=== PATIENT | female | born 1955 | race American Indian/Alaskan Native ===

== ENCOUNTER 2016-08-22 07:55 | Inpatient (IN) | payer MEDICARE, OTHER ==
[2016-08-22 07:56] VITALS: BMI 32.6
--- NOTE | 2016-08-22 09:31 | ED PDOC ---
Arrival/HPI - General Chief Complaint: Pain, Chronic Time Seen by Provider: 08/22/16 09:16 Historian: Patient - History of Present Illness Narrative History of Present Illness (Text): 08/22/16 09:25 61yo female with PMHx of hyperlipdemia, hypertension, TIA, protein C deficiency and Coumadin induced necrosis present to ED with complaint of worsening left breast and 4th digits pain secondary to the necrosis. She had a debridment of the necrosis in July. States the right breast is healed and close, but left breast remain open and painful. Recently noticing purulent discharge from the breast. Also reports worsening pain to the 4th digits. States the necrosis improved from the last debridement and now localized to her 4th digit distal phalanx. States she spoke with Dr. Alcala and was told to go to the ED if pain worsens. She denies fever, chills, nausea, vomiting, SOB, chest pain, bleeding, any other complaint. Past Medical History - Provider Review Nursing Documentation Reviewed: Yes - Infectious Disease Hx of Infectious Diseases: None - Tetanus Immunization Tetanus Immunization: Unknown - Cardiac Hx Atrial Fibrillation: Yes Hx Hypertension: Yes - Pulmonary Hx Respiratory Disorders: Yes Hx Asthma: Yes - Neurological Hx Paralysis: No - HEENT Hx HEENT Disorder: No - Renal Hx Renal Disorder: No - Endocrine/Metabolic Hx Endocrine Disorders: No - Hematological/Oncological Hx Blood Transfusions: Yes Hx Blood Transfusion Reaction: No - Integumentary Hx Dermatological Disorder: No - Musculoskeletal/Rheumatological Hx Musculoskeletal Disorders: Yes (RHABDOMYOLYSIS) - Gastrointestinal Hx Gastrointestinal Disorders: No - Genitourinary/Gynecological Hx Genitourinary Disorders: Yes Hx Urinary Tract Infection: Yes - Psychiatric Hx Emotional Abuse: No Hx Physical Abuse: No Hx Substance Use: No - Past Surgical History Past Surgical History: Non-Contributing - Surgical History Hx Gastric Bypass Surgery: Yes Hx Hysterectomy: Yes Other/Comment: tonsilectomy - Anesthesia Hx Anesthesia Reactions: No Hx Malignant Hyperthermia: No - Suicidal Assessment Feels Threatened In Home Enviroment: No Family/Social History - Physician Review Nursing Documentation Reviewed: Yes Family/Social History: Unknown Family HX Smoking Status: Never Smoked Hx Alcohol Use: No Hx Substance Use: No Hx Substance Use Treatment: No Allergies/Home Meds Allergies/Adverse Reactions: Allergies Penicillins Allergy (Verified 08/22/16 08:04) ANGIOEDEMA/SHORTNESS OF BREATH ANGIOEDEMA SHORTNESS OF BREATH Home Medications: Home Meds Medication Instructions Recorded Confirmed Gabapentin [Neurontin] 300 mg PO TID 12/05/13 08/22/16 Pantoprazole [Protonix EC Tab] 40 mg PO BID 12/05/13 08/22/16 Simvastatin 20 mg PO HS 11/07/15 08/22/16 Valsartan [Diovan] 80 mg PO QPM 11/07/15 08/22/16 Metoprolol Tartrate 25 mg PO BID 12/10/15 08/22/16 Ibuprofen [Motrin Tab] 1 tab PO TID 03/27/16 08/22/16 Fluticasone Nasal [Flonase] 2 spr NS DAILY 03/28/16 08/22/16 Furosemide [Lasix] 40 mg PO BID 03/28/16 08/22/16 Promethazine DM [Phenergan DM 1 tsp PO QID 03/28/16 08/22/16 Syrup] Review of Systems - Physician Review All systems were reviewed & negative as marked: Yes - Review of Systems Constitutional: Normal Eyes: Normal ENT: Normal Respiratory: Normal Cardiovascular: Normal Gastrointestinal: Normal Genitourinary Female: Normal Musculoskeletal: Other (B/L 4th finger pain) Skin: Other (Discharge from left breast wound with pain) Neurological: Normal Endocrine: Normal Hemo/Lymphatic: Normal Psychiatric: Normal Physical Exam Vital Signs Reviewed: Yes Vital Signs Temp Pulse Resp BP Pulse Ox 08/22/16 08:09 99.3 F 104 H 16 102/58 L 100 Temperature: Afebrile Blood Pressure: Normal Pulse: Regular Respiratory Rate: Normal Appearance: Positive for: Well-Appearing, Non-Toxic, Comfortable Pain Distress: None Mental Status: Positive for: Alert and Oriented X 3 - Systems Exam Head: Present: Atraumatic, Normocephalic Pupils: Present: PERRL Extroacular Muscles: Present: EOMI Conjunctiva: Present: Normal Mouth: Present: Moist Mucous Membranes Neck: Present: Normal Range of Motion Respiratory/Chest: Present: Clear to Auscultation, Good Air Exchange. No: Respiratory Distress, Accessory Muscle Use Cardiovascular: Present: Regular Rate and Rhythm, Normal S1, S2. No: Murmurs Abdomen: Present: Normal Bowel Sounds. No: Tenderness, Distention, Peritoneal Signs Breast/Axillary: Present: Other (Clean margin wound noted on left breast. No purulent dishcarge noted. No erythema. No crepitus). No: Discoloration, Erythema Back: Present: Normal Inspection Upper Extremity: Present: Normal Inspection, Normal ROM, Swelling, Deformity (B/ L 4th distal digit necrosis noted). No: Cyanosis, Edema, Tenderness Lower Extremity: Present: Normal Inspection. No: Edema Neurological: Present: GCS=15, CN II-XII Intact, Speech Normal Skin: Present: Warm, Dry, Normal Color. No: Rashes Psychiatric: Present: Alert, Oriented x 3, Normal Insight, Normal Concentration Medical Decision Making ED Course and Treatment: 08/22/16 10:22 Case was AYAN Alcala. He requested that i called the surgical appliances salesperson to see patient. I spoke with the surgical appliances salesperson Danielle. they saw patient in ED and DC with Dr. Alcala. Per Danielle, patient will be admitted to Dr. Nguyen's service. Lab ordered and pending. Abx ordered 08/22/16 13:15 Case was AYAN Huerta and he accepted pt into his service. Plan was DW the pt and she agreed - Lab Interpretations Lab Results: 08/22/16 11:00 08/22/16 11:00 Lab Results 08/22/16 11:00: WBC 15.5 H D, RBC 3.79, Hgb 11.0 L, Hct 34.4 L, MCV 90.8, MCH 29.0, MCHC 32.0, RDW 19.1 H, Plt Count 437, MPV 10.4, Gran % 79.2 H, Lymph % ( Auto) 12.7 L, [place] % (Auto) 7.2 H, Eos % (Auto) 0.8 L, Baso % (Auto) 0.1, Gran # 12.25 H, Lymph # 2.0, [place] # 1.1 H, Eos # 0.1, Baso # 0.02, PT 11.8, INR 1.09 H, APTT 28.9, Sodium 142, Potassium 4.2, Chloride 107, Carbon Dioxide 19 L, Anion Gap 20, BUN 20, Creatinine 2.5 H, Est GFR ( Amer) 24, Est GFR (Non- Af Amer) 20, Random Glucose 86, Calcium 7.7 L, Total Bilirubin 0.9, AST 46 H, ALT 6 L, Alkaline Phosphatase 62, Total Protein 8.3, Albumin 3.7, Globulin 4.6, Albumin/Globulin Ratio 0.8 L - Medication Orders Current Medication Orders: Atorvastatin Calcium (Lipitor) 10 mg PO HS [facility] Fluticasone Propionate (Flonase) 2 actuation NS DAILY [facility] Furosemide (Lasix) 40 mg PO BID [facility] Gabapentin (Neurontin) 300 mg PO TID [facility] PRN Reason: Protocol Sodium Chloride (Sodium Chloride 0.9%) 1,000 mls @ 100 mls/hr IV .Q10H [facility] Last Admin: 08/22/16 11:18 Dose: 100 MLS/HR eMAR Start Stop Document 08/22/16 11:18 RANDAL (Rec: 08/22/16 11:18 [id number] Intravenous Solution Start Date 08/22/16 Start Time 11:18 Losartan Potassium (Cozaar) 50 mg PO QPM [facility] Magnesium Oxide (Mag-Ox) 400 mg PO TID [facility] Metoprolol Tartrate (Lopressor) 25 mg PO BID [facility] Oxycodone/Acetaminophen (Percocet 5/325 Mg Tab) 1 tab PO Q4H PRN PRN Reason: Pain, severe (8-10) Stop: 08/25/16 10:18 Pantoprazole Sodium (Protonix Ec Tab) 40 mg PO BID [facility] Potassium Chloride (K-Dur 20 Meq Er Tab) 20 meq PO BID [facility] Promethazine HCl/Dextromethorphan (Phenergan Dm Syrup) 5 ml PO QID [facility] Discontinued Medications Aztreonam (Azactam 2 Gm) 100 mls @ 100 mls/hr IVPB STAT STA PRN Reason: Protocol Stop: 08/22/16 11:24 Last Admin: 08/22/16 12:41 Dose: 100 MLS/HR eMAR Start Stop Document 08/22/16 12:41 RANDAL (Rec: 08/22/16 12:41 [id number] Intravenous Solution Start Date 08/22/16 Start Time 12:41 Metronidazole (Flagyl) 100 mls @ 100 mls/hr IVPB STAT STA PRN Reason: Protocol Stop: 08/22/16 11:25 Last Admin: 08/22/16 11:18 Dose: 100 MLS/HR eMAR Start Stop Document 08/22/16 11:18 RANDAL (Rec: 08/22/16 11:18 [id number]) Intravenous Solution Start Date 08/22/16 Start Time 11:18 Oxycodone/Acetaminophen (Percocet 5/325 Mg Tab) 1 tab PO STAT STA Stop: 08/22/16 10:26 Last Admin: 08/22/16 11:18 Dose: 1 TAB Disposition/Present on Arrival - Present on Arrival Any Indicators Present on Arrival: No History of DVT/PE: No History of Uncontrolled Diabetes: No Urinary Catheter: No History of Decub. Ulcer: No History Surgical Site Infection Following: None - Disposition Have Diagnosis and Disposition been Completed?: Yes Diagnosis: Coumarin-induced necrosis, Skin infection Disposition: HOSPITALIZED Disposition Time: 10:00 Patient Problems: Current Active Problems Problem Status Diagnosed Chest pain Acute Coumadin toxicity Acute Dyspnea Acute Protein C deficiency Acute Syncope Acute Condition: FAIR
[2016-08-22] MEDS ORDERED: Oxycodone/Acetaminophen 5/325 mg Tab PO PRN (10:17)
--- NOTE | 2016-08-22 10:20 | CP.PCM.CON ---
History of Present Illness - History of Present Illness History of Present Illness: Surgery Consult note for Dr Alcala: 61yo F with PMHx of HLD, HTN, TIA, protein C deficiency and Coumadin induced necrosis presents with worsening L breast pain and b/l 4th digit pain related to necrosis. She states that a few weeks ago she hasd a debridement of her breast secondary to the necrosis and the R breast healed well but her L breast remained open with pink purulent drainage. Pt states that she was in Dr Alcala office on which stated if her pain gets worse to come to the ED. She denies any fevers or chills. Denies any fever, chills, n/v, sob, cp, palpitations, abd pain, urinary or BM changes. PMHx: HTN, dyslipidemia, protein c deficiency on anticoagulation, chronic back pain secondary to herniated disc PSH: Gastric bypass, hysterectomy FMH: Mom had breast ca, and from CVA. at 69. Dad had unknown cancer, at age 50. Social: denies alcohol, tobacco, or illicit drug use. Retired, lives by herself. Allergy: penicillin ( rash, and swelling around the lips) Review of Systems - Review of Systems All systems: reviewed and no additional remarkable complaints except (HPI) Past Patient History - Infectious Disease Hx of Infectious Diseases: None - Tetanus Immunizations Tetanus Immunization: Unknown - Past Medical History & Family History Past Medical History?: Yes - Past Social History Smoking Status: Never Smoked - CARDIAC Hx Atrial Fibrillation: Yes Hx Hypertension: Yes - PULMONARY Hx Respiratory Disorders: Yes Hx Asthma: Yes - NEUROLOGICAL Hx Paralysis: No - HEENT Hx HEENT Problems: No - RENAL Hx Chronic Kidney Disease: No - ENDOCRINE/METABOLIC Hx Endocrine Disorders: No - HEMATOLOGICAL/ONCOLOGICAL Hx Blood Transfusions: Yes Hx Blood Transfusion Reaction: No - INTEGUMENTARY Hx Dermatological Problems: No - MUSCULOSKELETAL/RHEUMATOLOGICAL Hx Musculoskeletal Disorders: Yes (RHABDOMYOLYSIS) - GASTROINTESTINAL Hx Gastrointestinal Disorders: No - GENITOURINARY/GYNECOLOGICAL Hx Genitourinary Disorders: Yes Hx Urinary Tract Infection: Yes - PSYCHIATRIC Hx Emotional Abuse: No Hx Physical Abuse: No Hx Substance Use: No - SURGICAL HISTORY Hx Gastric Bypass Surgery: Yes Hx Hysterectomy: Yes Other/Comment: tonsilectomy - ANESTHESIA Hx Anesthesia Reactions: No Hx Malignant Hyperthermia: No Meds Allergies/Adverse Reactions: Allergies Allergy/AdvReac Type Severity Reaction Status Date / Time Penicillins Allergy ANGIOEDEMA/SHORTNESS Verified 08/22/16 08:04 OF BREATH Physical Exam - Constitutional Appears: No Acute Distress - ENT Exam ENT Exam: Mucous Membranes Moist - Respiratory Exam Respiratory Exam: Clear to Auscultation Bilateral, NORMAL BREATHING PATTERN - Cardiovascular Exam Cardiovascular Exam: REGULAR RHYTHM, +S1, +S2 - GI/Abdominal Exam GI & Abdominal Exam: Normal Bowel Sounds, Soft. absent: Tenderness - Extremities Exam Additional comments: see skin - Neurological Exam Neurological exam: Alert, Oriented x3 - Skin Additional comments: R breast: healing scars, sutures in place L breast: non healing wound with purulent discharge in lower lateral aspect of scar B/L 4th digit: necrosed distal phalanx in a sling Results - Vital Signs Recent Vital Signs: Last Vital Signs Temp 99.3 F 08/22/16 08:09 Pulse 104 H 08/22/16 08:09 Resp 16 08/22/16 08:09 BP 102/58 L 08/22/16 08:09 Pulse Ox 100 08/22/16 08:09 Assessment & Plan - Assessment and Plan (Free Text) Assessment: 61 F with extensive pmh presents with L breast non healing wound and b/l 4th digit necrosis 2/2 Coumadin . - NPO - Possible OR for debridement this afternoon - Pain control - IV fluids - Monitor Labs - Medical management per primary Further recs discuss with Dr Fredrick Wilkins IM Resident PGY-1
[2016-08-22] MEDS ORDERED: Oxycodone/Acetaminophen 5/325 mg Tab PO STA (10:25)
[2016-08-22] MEDS ORDERED: Aztreonam 2 Gm in NS 100mL 100 ML IVPB STA (10:25)
[2016-08-22] MEDS ORDERED: metroNIDAZOLE IV 500 mg/100 ml 100 ML IVPB STA (10:26)
[2016-08-22 11:15] LABS: ADD MANUAL DIFF? NO
[2016-08-22] MEDS: Sodium Chloride 0.9% 1,000 ML IV SCH ×2 (11:18→20:15)
[2016-08-22 11:21] LABS: BASO # 0.02 K/mm3 (0.0-2.0); BASO % 0.1 % (0.0-3.0); EOS # 0.1 (0.0-0.7); EOS % 0.8 % (1.5-5.0); GRAN # 12.25 (1.4-6.5); GRAN % 79.2 % (50.0-68.0); HEMATOCRIT 34.4 % (36.0-48.0); LYMPH % 12.7 % (22.0-35.0); MEAN CELL VOLUME 90.8 fL (80.0-105.0); MEAN PLATELET VOLUME 10.4 fl (7.0-11.0); MONO # 1.1 (0.1-0.6); MONO % 7.2 % (1.0-6.0); PLATELET COUNT 437 10^3/uL (120.0-450.0); RED CELL DISTRIBUTION WIDTH 19.1 % (11.5-14.5); WHITE BLOOD COUNT 15.5 10^3/ul (4.5-11.0)
[2016-08-22 11:30] LABS: INR 1.09 (0.93-1.08); PARTIAL THROMBOPLASTIN TIME 28.9 Seconds (23.7-30.8)
[2016-08-22 11:38] LABS: ALB/GLOB RATIO 0.8 (1.1-1.8); BILIRUBIN,TOTAL 0.9 mg/dL (0.2-1.3); CALCIUM 7.7 mg/dL (8.4-10.5); POTASSIUM 4.2 mmol/L (3.6-5.0); TOTAL PROTEIN 8.3 g/dL (5.8-8.3)
[2016-08-22] MEDS: Magnesium Oxide 400 mg Tab UD PO SCH ×2 (14:44→19:01)
[2016-08-22] MEDS: Promethazine DM 6.25 mg-15 mg/5 ml Syrup PO SCH ×3 (14:45→22:05)
[2016-08-22] MEDS ORDERED: Propofol 10 mg/ml Inj (20 ML) ONE (16:56)
[2016-08-22] MEDS ORDERED: Midazolam 2 MG/2 ML VIAL ONE (16:56)
[2016-08-22] MEDS ORDERED: Methylene Blue 10 mg/ml (1ml) Inj ONE (16:59)
[2016-08-22] MEDS ORDERED: Bupivacaine 0.5% Inj(30mL) ONE (16:59)
[2016-08-22] MEDS ORDERED: Ciprofloxacin 400mg/200ml D5W 200 ML IVPB ONE (17:13)
[2016-08-22] MEDS ORDERED: Phenylephrine 10 mg/ml Inj ONE (17:16)
[2016-08-22] MEDS ORDERED: Lactated Ringer's 1,000 ML IV SCH (18:00)
--- NOTE | 2016-08-22 18:05 | PCM.SURG1 ---
Surgeon's Initial Post Op Note - Surgeon's Notes Surgeon: Fredrick Semi Conductor Assembler: Cecy PGY2 Type of Anesthesia: General LMA Pre-Operative Diagnosis: Warfarin induced skin necrosis left breast Operative Findings: foul smelling grannulation tissue in left breast Post-Operative Diagnosis: same Operation Performed: debridement of left breast Specimen/Specimens Removed: L breast Estimated Blood Loss: EBL {In ML}: 25 Blood Products Given: N/A Drains Used: Gary Post-Op Condition: Good Date of Surgery/Procedure: 08/22/16 Time of Surgery/Procedure: 18:04
[2016-08-22] MEDS: HYDROmorphone 0.5 mg/0.5 ml ISec IVP PRN ×3 (18:22→19:01)
[2016-08-22] MEDS ORDERED: HYDROmorphone 0.5 mg/0.5 ml ISec ONE ×3 (18:23→19:04)
[2016-08-22] MEDS: Potassium Chloride 20 mEq ER Tab PO SCH (19:00)
[2016-08-22] MEDS: Pantoprazole 40 mg EC Tab PO SCH (19:01)
[2016-08-22] MEDS: Morphine 4 mg/ml ISec IVP PRN ×2 (20:15→23:56)
--- NOTE | 2016-08-23 00:28 | CP.PCM.PN ---
Subjective - Date & Time of Evaluation Date of Evaluation: 08/23/16 Time of Evaluation: 05:45 - Subjective Subjective: General Surgery progress note for Dr. Alcala Pt s/e at bedside this AM. Patient reports L breast pain appropriate to surgery POD#1. Denies fevers, chills, nausea, and vomiting. BRETT drain with approximately 10cc's of sero-sanguinous fluid. Objective - Vital Signs/Intake and Output Vital Signs (last 24 hours): Temp Pulse Resp BP Pulse Ox 98.7 F 100 H 18 116/78 100 08/22/16 20:00 08/22/16 20:00 08/22/16 20:00 08/22/16 20:00 08/22/16 20:00 Intake and Output: 08/22/16 08/23/16 18:59 06:59 Intake Total 0 300 Output Total 5 Balance 0 295 - Medications Medications: Current Medications Acetaminophen (Tylenol 325mg Tab) 650 mg PO Q4H PRN PRN Reason: Fever >100.4 F Atorvastatin Calcium (Lipitor) 10 mg PO HS [facility] Last Admin: 08/22/16 22:03 Dose: 10 mg Fluticasone Propionate (Flonase) 2 actuation NS DAILY [facility] Furosemide (Lasix) 40 mg PO BID [facility] Last Admin: 08/22/16 19:00 Dose: Not Given Gabapentin (Neurontin) 300 mg PO TID [facility] PRN Reason: Protocol Last Admin: 08/22/16 19:01 Dose: Not Given Heparin Sodium (Porcine) (Heparin) 5,000 units SC Q12 [facility] PRN Reason: Protocol Sodium Chloride (Sodium Chloride 0.9%) 1,000 mls @ 100 mls/hr IV .Q10H [facility] Last Admin: 08/22/16 20:15 Dose: 100 mls/hr Clindamycin Phosphate 600 mg/ (Sodium Chloride) 54 mls @ 102 mls/hr IVPB Q8 [facility] PRN Reason: Protocol Last Admin: 08/22/16 22:03 Dose: 102 mls/hr Losartan Potassium (Cozaar) 50 mg PO QPM [facility] Last Admin: 08/22/16 19:00 Dose: Not Given Magnesium Oxide (Mag-Ox) 400 mg PO TID [facility] Last Admin: 08/22/16 19:01 Dose: Not Given Metoprolol Tartrate (Lopressor) 25 mg PO BID [facility] Last Admin: 08/22/16 19:01 Dose: Not Given Morphine Sulfate (Morphine) 4 mg IVP Q4H PRN PRN Reason: Pain, severe (8-10) Last Admin: 08/22/16 23:56 Dose: 4 mg Oxycodone/Acetaminophen (Percocet 5/325 Mg Tab) 1 tab PO Q4H PRN PRN Reason: Pain, severe (8-10) Stop: 08/25/16 10:18 Pantoprazole Sodium (Protonix Ec Tab) 40 mg PO BID [facility] Last Admin: 08/22/16 19:01 Dose: Not Given Potassium Chloride (K-Dur 20 Meq Er Tab) 20 meq PO BID [facility] Last Admin: 08/22/16 19:00 Dose: Not Given Promethazine HCl/Dextromethorphan (Phenergan Dm Syrup) 5 ml PO QID [facility] Last Admin: 08/22/16 22:05 Dose: 5 ml - Labs Labs: PT 11.8 Seconds (9.9-11.8) 08/22/16 11:00 INR 1.09 (0.93-1.08) H 08/22/16 11:00 APTT 28.9 Seconds (23.7-30.8) 08/22/16 11:00 - Constitutional Appears: Well, Non-toxic, No Acute Distress - Head Exam Head Exam: ATRAUMATIC, NORMOCEPHALIC - Eye Exam Eye Exam: Normal appearance. absent: Conjunctival injection, Scleral icterus - ENT Exam ENT Exam: Mucous Membranes Moist, Normal Oropharynx - Respiratory Exam Respiratory Exam: NORMAL BREATHING PATTERN. absent: Accessory Muscle Use, Respiratory Distress - GI/Abdominal Exam GI & Abdominal Exam: absent: Distended - Extremities Exam Extremities Exam: absent: Calf Tenderness, Pedal Edema Additional comments: Skin Lesion with eschar on left calf approximately 3x4cm. BL 4 distal fingers black with necrotic tissue, area of healthy tissue visible underneath near the MIP joint. - Neurological Exam Neurological Exam: Alert, Awake, Oriented x3 - Psychiatric Exam Psychiatric exam: Normal Affect, Normal Mood - Skin Skin Exam: Dry, Normal Color, Warm Additional comments: Left breast wound covered in dressing dry and intact with minimal sanguinous saturation. Brett drain in place with minimal sero-sanguinous output Assessment and Plan - Assessment and Plan (Free Text) Assessment: 61F with PMH of protein C deficiency and a chronic L breast wound d/t coumadin induced skin necrosis POD#1 s/p left breast wound debridement Plan: - monitor drain output - monitor WBC - daily dressing changes - Continue antibiotics - Continue pain regimen, GI ppx, and resume DVT ppx Discussed with Dr. Fredrick Dotson, PGY1
[2016-08-23] MEDS: Morphine 4 mg/ml ISec IVP PRN ×4 (04:22→21:14)
[2016-08-23 08:17] LABS: ADD MANUAL DIFF? NO
[2016-08-23 08:21] LABS: BASO # 0.02 K/mm3 (0.0-2.0); BASO % 0.2 % (0.0-3.0); EOS # 0.3 (0.0-0.7); EOS % 2.9 % (1.5-5.0); GRAN # 7.07 (1.4-6.5); GRAN % 68.6 % (50.0-68.0); HEMATOCRIT 29.4 % (36.0-48.0); LYMPH # 2.2 (1.2-3.4); LYMPH % 21.1 % (22.0-35.0); MEAN CELL VOLUME 89.1 fL (80.0-105.0); MEAN CORPUSCULAR HEMOGLOBIN 28.5 pg (25.0-35.0); MEAN PLATELET VOLUME 9.6 fl (7.0-11.0); MONO # 0.7 (0.1-0.6); MONO % 7.2 % (1.0-6.0); PLATELET COUNT 344 10^3/uL (120.0-450.0); RED CELL DISTRIBUTION WIDTH 18.8 % (11.5-14.5); WHITE BLOOD COUNT 10.3 10^3/ul (4.5-11.0)
[2016-08-23 08:33] LABS: ALB/GLOB RATIO 0.8 (1.1-1.8); BILIRUBIN,TOTAL 0.5 mg/dL (0.2-1.3); POTASSIUM 3.1 mmol/L (3.6-5.0); TOTAL PROTEIN 6.4 g/dL (5.8-8.3)
[2016-08-23] MEDS: Promethazine DM 6.25 mg-15 mg/5 ml Syrup PO SCH ×4 (09:39→21:14)
[2016-08-23] MEDS: Potassium Chloride 20 mEq ER Tab PO SCH ×2 (09:40→18:19)
[2016-08-23] MEDS: Magnesium Oxide 400 mg Tab UD PO SCH ×3 (09:40→18:17)
[2016-08-23] MEDS: Pantoprazole 40 mg EC Tab PO SCH ×2 (09:40→18:18)
[2016-08-23] MEDS ORDERED: Fluticasone Nasal 50 mcg/Spray NS SCH (10:00)
[2016-08-23] MEDS ORDERED: Potassium Chloride 20 mEq ER Tab PO STA ×2 (10:14→13:01)
--- NOTE | 2016-08-23 12:45 | HP ---
HISTORY OF PRESENT ILLNESS: The patient is a 61-year-old black female, known to me from multiple pre vious admissions. She came to the Emergency Room because of worsening of left breast pain and she al so has pain in her fourth digit, secondary to necrosis. The patient had bilateral breast debridement done after she had Coumadin-induced skin necrosis and she still has a BRETT drain in her left breast wo und and the right breast wound seems to be healing. Her left breast has pinkish to purulent discharg e. The patient was seen in Dr. Alcala's office, on August 19, and was told if pain and swelling and di scharge increases, she should go to Emergency Room; so, she came to the ER for evaluation. She does not have any fever or chills. No nausea, vomiting, no diarrhea. Eating and tolerating. No chest pa in, no hemoptysis, no hematemesis, no urine or bowel issues. PAST MEDICAL HISTORY: Significant for: 1. Hypertension. 2. Protein C deficiency, on anticoagulant. She was on Coumadin, but got skin necrosis so it was disc ontinued and started on Lovenox. 3. History of chronic back pain. 4. History of chronic degenerative disk disease and she is on chronic pain medication for that. PAST SURGICAL HISTORY: Significant for total abdominal hysterectomy and gastric bypass in the remote past. FAMILY HISTORY: Significant for breast cancer in mom and actually mom of CVA at the age of 69. SOCIAL HISTORY: Denies smoking, drinking, or alcohol use. She lives by herself. She is retired. ALLERGIES: SHE IS ALLERGIC TO PENICILLIN. MEDICATIONS AT HOME: She is on Percocet 1 tablet q. 6 p.r.n., Diovan 80 mg daily, simvastatin 20 mg daily, promethazine, potassium 20 mEq daily, Protonix 40 daily, metoprolol 25 twice a day, magnesium oxide 400 t.i.d., ibuprofen, gabapentin 300 t.i.d., Lasix 40 twice a day, Flonase 2 sprays daily, Sofiya enox 100 mg twice a day. REVIEW OF SYSTEMS: Significant for left breast discomfort and hand pain. PHYSICAL EXAMINATION: GENERAL: She is awake and alert, communicative, sitting in chair, comfortable. VITAL SIGNS: She is afebrile, pulse 80, respirations 20, blood pressure 99/63. LUNGS: Bilateral fair airflow, no rhonchi or crackle. HEART: S1, S2 audible. ABDOMEN: Soft, nontender, obese. No hepatosplenomegaly. NEUROLOGIC: She is awake and alert, communicative. BREASTS: Right breast exam, she has induration and her debridement wound is healing well. She has s ome induration of granulation tissue, but with no active discharge. Her left breast wound has slight discharge from the lateral edge and she has a BRETT tube in the left breast wound. LABORATORY DATA: WBC is 10.3, hemoglobin 9.5, hematocrit 9.4, platelets 344. Chemistry: Sodium 137 , potassium 3.1, chloride 108, CO2 17, BUN 23, creatinine 1.7, blood sugar of 78. LFTs are within no rmal limits. ASSESSMENT AND PLAN: 1. Left breast mild cellulitis, status post debridement. 2. Coumadin-induced skin necrosis. 3. Protein C deficiency. 4. Hypertension, but currently hypotensive. 5. Mild renal insufficiency, improving. PLAN: We will continue patient on current antibiotics. Dr. Rodriguez has been consulted. We will follow up her electrolytes in a.m. Continue her on Lovenox. We will give her potassium 40 q. 4 hours for 2 doses and we will follow up CBC, CMP in a.m. and analgesic as needed. We will reevalua te the patient in a.m. Magdiel Marcum MD cc: [id number] TT: 08/23/2016 12:43:52 ln
[2016-08-23] MEDS: Enoxaparin 100 mg Syringe SC SCH ×2 (13:04→22:58)
--- NOTE | 2016-08-23 16:30 | CON ---
DATE: 08/23/2016 The patient seen earlier today in 360, bed 1. CHIEF COMPLAINT: Left breast infection times several days. HISTORY OF PRESENT ILLNESS: A 61-year-old female with history of hypertension, TIA, hyperlipidemia, chronic back pain, congestive heart failure, hypercoagulable state, protein C deficiency, multiple ad missions, had Coumadin-induced skin necrosis which included her fingers, her breasts and her abdomina l wall. She had multiple admissions, had abdominal wound and breast wound debridement and now is admi tted with a left breast infection. She was taken to the OR and had it debrided. An infectious diseas e consultation is requested. The patient denies any fevers, any chills, no chest pain and no hemoptysis and no abdominal pain, terri rrhea or constipation. PAST MEDICAL HISTORY: Significant for the Coumadin-induced skin necrosis, congestive heart failure, chronic back pain, and hyperlipidemia, TIA, hypertension, hypercoagulable state and protein C deficie ncy. PAST SURGICAL HISTORY: Significant for hysterectomy and gastric bypass. ___ HEART: Normal S1, S2. ABDOMEN: Soft, nontender. BREAST: On examination of the breast there is drainage present with initial packing and dressing. LABORATORY EXAMINATION: Reveals a white count of 15,000, hemoglobin of 11 and platelets of 437. Coa gulation is noted. Chemistries reveal a creatinine of 2.5. On the last admission, the patient a mon ago had a creatinine of 0.6. MICROBIOLOGY: Blood cultures on this admission are reported to be no growth. The patient has had Staph aureus ____ protein C deficiency, hypercoagulable state, Coumadin skin necr osis, congestive heart failure, chronic back pain, hyperlipidemia, hypercoagulable state, protein C d eficiency. She is ALLERGIC TO PENICILLIN, now admitted with severe sepsis, status post left breast wo und debridement for cellulitis and necrosis with acute renal failure, creatinine is changed from 0.6 to 2.6. In a patient who is ALLERGIC TO PENICILLIN we will treat with Zyvox and Azactam. Pending O R cultures discontinue the clindamycin and will make further recommendations based on the pathology, cultures from the OR and clinical response. Josh Rodriguez MD cc: [phone] TT: 08/23/2016 15:23:21 Confirmation # [id number] Dictation # [id number] an
[2016-08-23] MEDS: Sodium Chloride 0.9% 1,000 ML IV SCH ×2 (21:15→21:16)
[2016-08-23] MEDS: Aztreonam 1 Gm in NS 100mL 100 ML IVPB SCH (21:15)
[2016-08-23] MEDS: Oxycodone/Acetaminophen 5/325 mg Tab PO PRN (23:02)
[2016-08-24] MEDS: Morphine 4 mg/ml ISec IVP PRN ×5 (04:43→23:47)
[2016-08-24] MEDS: Sodium Chloride 0.9% 1,000 ML IV SCH ×4 (04:58→23:48)
[2016-08-24] MEDS: Aztreonam 1 Gm in NS 100mL 100 ML IVPB SCH ×3 (05:01→21:43)
[2016-08-24 06:36] LABS: ADD MANUAL DIFF? NO
[2016-08-24 06:40] LABS: BASO # 0.02 K/mm3 (0.0-2.0); BASO % 0.3 % (0.0-3.0); EOS # 0.3 (0.0-0.7); GRAN # 3.88 (1.4-6.5); GRAN % 53.1 % (50.0-68.0); HEMATOCRIT 24.8 % (36.0-48.0); LYMPH # 2.1 (1.2-3.4); LYMPH % 29.3 % (22.0-35.0); MEAN CELL VOLUME 89.2 fL (80.0-105.0); MEAN CORPUSCULAR HEMOGLOBIN 28.4 pg (25.0-35.0); MEAN CORPUSCULAR HGB CONC 31.9 g/dl (31.0-37.0); MONO % 13.3 % (1.0-6.0); PLATELET COUNT 307 10^3/uL (120.0-450.0); RED CELL DISTRIBUTION WIDTH 18.6 % (11.5-14.5); WHITE BLOOD COUNT 7.3 10^3/ul (4.5-11.0)
[2016-08-24 06:55] LABS: ALB/GLOB RATIO 0.7 (1.1-1.8); BILIRUBIN,TOTAL 0.3 mg/dL (0.2-1.3); MAGNESIUM 1.3 mg/dL (1.7-2.2); PHOSPHOROUS 3.4 mg/dL (2.5-4.5); POTASSIUM 3.7 mmol/L (3.6-5.0); TOTAL PROTEIN 5.2 g/dL (5.8-8.3)
[2016-08-24] MEDS: Promethazine DM 6.25 mg-15 mg/5 ml Syrup PO SCH ×4 (10:30→21:43)
[2016-08-24] MEDS: Pantoprazole 40 mg EC Tab PO SCH ×2 (10:41→17:38)
[2016-08-24] MEDS: Magnesium Oxide 400 mg Tab UD PO SCH ×3 (10:41→17:38)
[2016-08-24] MEDS: Potassium Chloride 20 mEq ER Tab PO SCH ×2 (10:41→17:36)
[2016-08-24] MEDS: Oxycodone/Acetaminophen 5/325 mg Tab PO PRN ×3 (10:42→21:42)
[2016-08-24] MEDS: Enoxaparin 100 mg Syringe SC SCH ×2 (10:42→23:47)
--- NOTE | 2016-08-24 11:00 | PN ---
DATE: 08/24/2016 SUBJECTIVE: The patient is in bed in no acute distress, nontoxic. PHYSICAL EXAMINATION: VITAL SIGNS: Temperature is 98, blood pressure is 104/50, respiratory rate of 16. HEENT: Unremarkable. NECK: Supple. LUNGS: Have decreased breath sounds. HEART: Normal S1, S2. ABDOMEN: Soft, nontender. LABORATORY DATA: Reveals a white count of 7, hemoglobin of 7, and platelets of 307. Coagulation is noted. Chemistries are noted. BUN of 21, creatinine of 1.2. Microbiology is noted. Blood cultures are negative. ASSESSMENT AND PLAN: This is a 61-year-old female with history of hypertension, transient ischemic a ttack, hyperlipidemia, chronic back pain, congestive heart failure, hypercoagulable state, protein C deficiency, and multiple admissions and Coumadin-induced skin necrosis of the abdomen and breast and abdominal wall and multiple fingers. Now patient admitted with severe sepsis, status post left breas t wound debridement of cellulitis and necrosis with acute renal failure. The patient's creatinine peterson d changed from 0.6 from last admission to 2.6 and the patient is ALLERGIC TO PENICILLIN. Currently o n Zyvox and Azactam, post-procedure day #2. Awaiting for OR cultures. Thus far, the blood cultures are negative in this patient with protein C deficiency and Coumadin-induced skin necrosis and hyperco agulable state, on Zyvox and Azactam at this time. Pending haley cultures, OR cultures, and will follo w with you. Josh Rodriguez MD cc: [id number] TT: 08/24/2016 10:59:28 Confirmation # [id number] Dictation # [id number] abbi
--- NOTE | 2016-08-24 14:55 | PN ---
DATE: 08/24/2016 The patient is a 61-year-old, seen and examined, lying in bed, seems to be comfortable except discomf ort in her left fourth finger and left breast debridement site. PHYSICAL EXAMINATION: VITAL SIGNS: She is afebrile, pulse 76, respirations 20, blood pressure 114/70. LUNGS: Bilateral fair airflow, no rhonchi or crackle. HEART: S1, S2 audible. ABDOMEN: Soft, nontender, no rebound, no guarding. She has a BRETT drain in the left breast debridemen t site. Right breast wound seems to be healing well. EXTREMITIES: Bilateral legs, no edema. LABORATORY EXAMINATION: WBC 7.3, hemoglobin 7.9, hematocrit 24.8, platelet of 307. Chemistry: Sodi um 136, potassium 3.7, chloride 111, CO2 18, BUN 21, creatinine 1.2, blood sugar of 80. ASSESSMENT: 1. Symptomatic anemia. 2. History of protein C deficiency. 3. Status post Coumadin related bilateral breast skin necrosis, status post debridement. 4. Left breast wound infection. 5. Acute on chronic anemia, probably blood loss. 6. Renal insufficiency, improving. 7. Electrolyte imbalance. PLAN: The patient will receive 1 blood transfusion. We will keep her on Lovenox and follow up her C BC and CMP in a.m. We will follow up her electrolytes in a.m. and currently she is on Azactam as rec ommended by ID and she is on analgesic as needed. She is on Zyvox 600 twice a day as recommended by ID. Magdiel Marcum MD cc: [phone] TT: 08/24/2016 14:54:44 Confirmation # [id number] Dictation # [id number] en
--- NOTE | 2016-08-24 15:10 | CP.PCM.PN ---
Subjective - Date & Time of Evaluation Date of Evaluation: 08/24/16 Time of Evaluation: 15:06 - Subjective Subjective: Surgery: Dr. Alcala Pt seen and examined. Resting comfortably in bed. Pain controlled w. meds. No F/ C. Ambulating w. out difficulty. Pt states that last night the drain in L breast was tugged and slightly displaced, as a results the drain is unable to provide suction. However overlying dressing was saturated w. serosang fluid. Objective - Vital Signs/Intake and Output Vital Signs (last 24 hours): Temp Pulse Resp BP Pulse Ox 98.4 F 77 20 114/70 98 08/24/16 07:32 08/24/16 10:40 08/24/16 07:32 08/24/16 10:41 08/24/16 07:32 Intake and Output: 08/24/16 08/24/16 06:59 18:59 Intake Total 240 660 Output Total 15 Balance 225 660 - Medications Medications: Current Medications Acetaminophen (Tylenol 325mg Tab) 650 mg PO Q4H PRN PRN Reason: Fever >100.4 F Atorvastatin Calcium (Lipitor) 10 mg PO HS [facility] Last Admin: 08/23/16 21:13 Dose: 10 mg Enoxaparin Sodium (Lovenox) 100 mg SC Q12H [facility] PRN Reason: Protocol Last Admin: 08/24/16 10:42 Dose: 100 mg Fluticasone Propionate (Flonase) 2 actuation NS DAILY [facility] Furosemide (Lasix) 40 mg PO BID [facility] Last Admin: 08/24/16 10:41 Dose: 40 mg Gabapentin (Neurontin) 300 mg PO TID [facility] PRN Reason: Protocol Last Admin: 08/24/16 14:33 Dose: 300 mg Sodium Chloride (Sodium Chloride 0.9%) 1,000 mls @ 100 mls/hr IV .Q10H [facility] Last Admin: 08/24/16 14:41 Dose: Not Given Aztreonam (Azactam 1 Gm) 100 mls @ 100 mls/hr IVPB Q8 [facility] PRN Reason: Protocol Stop: 09/01/16 22:01 Last Admin: 08/24/16 14:32 Dose: 100 mls/hr Linezolid (Zyvox) 600 mg PO Q12 [facility] PRN Reason: Protocol Last Admin: 08/24/16 10:43 Dose: 600 mg Magnesium Oxide (Mag-Ox) 400 mg PO TID [facility] Last Admin: 08/24/16 14:30 Dose: 400 mg Metoprolol Tartrate (Lopressor) 25 mg PO BID [facility] Last Admin: 08/24/16 10:40 Dose: 25 mg Morphine Sulfate (Morphine) 4 mg IVP Q4H PRN PRN Reason: Pain, severe (8-10) Last Admin: 08/24/16 14:30 Dose: 4 mg Ondansetron HCl (Zofran Inj) 4 mg IVP Q6H PRN PRN Reason: Nausea/Vomiting Last Admin: 08/24/16 13:55 Dose: 4 mg Oxycodone/Acetaminophen (Percocet 5/325 Mg Tab) 1 tab PO Q4H PRN PRN Reason: Pain, moderate (4-7) Stop: 08/26/16 11:01 Last Admin: 08/24/16 10:42 Dose: 1 tab Pantoprazole Sodium (Protonix Ec Tab) 40 mg PO BID [facility] Last Admin: 08/24/16 10:41 Dose: 40 mg Potassium Chloride (K-Dur 20 Meq Er Tab) 20 meq PO BID [facility] Last Admin: 08/24/16 10:41 Dose: 20 meq Promethazine HCl/Dextromethorphan (Phenergan Dm Syrup) 5 ml PO QID [facility] Last Admin: 08/24/16 14:33 Dose: 5 ml - Labs Labs: 08/24/16 06:00 08/24/16 06:00 PT 11.8 Seconds (9.9-11.8) 08/22/16 11:00 INR 1.09 (0.93-1.08) H 08/22/16 11:00 APTT 28.9 Seconds (23.7-30.8) 08/22/16 11:00 - Constitutional Appears: Non-toxic, No Acute Distress - Head Exam Head Exam: ATRAUMATIC, NORMOCEPHALIC - Eye Exam Eye Exam: EOMI. absent: Scleral icterus - ENT Exam ENT Exam: Mucous Membranes Moist, Normal External Ear Exam - Respiratory Exam Respiratory Exam: NORMAL BREATHING PATTERN. absent: Accessory Muscle Use, Respiratory Distress - GI/Abdominal Exam GI & Abdominal Exam: Soft. absent: Distended, Tenderness - Neurological Exam Neurological Exam: Alert, Awake, Oriented x3 - Skin Additional comments: B/L breast s/p resection 2/2 coumadin induced skin necrosis w. revision and debridement of L breast wound. Incision is C/D/I, no pus expressed on palpation , slight foul odor noted. Drain slightly displaced, but serosang fluid is draining. Assessment and Plan - Assessment and Plan (Free Text) Assessment: 61F w. coumadin induced skin necrosis, s/p revision of L breast wound, POD#2 -daily dressing changes -monitor drain output -pain control -abx per ID -encourage ISS, OOB, and ambulation -will continue to follow -will d/w attending Zemaitis PGY2
[2016-08-25] MEDS: Oxycodone/Acetaminophen 5/325 mg Tab PO PRN ×5 (01:49→22:13)
[2016-08-25] MEDS: Morphine 4 mg/ml ISec IVP PRN ×5 (03:20→20:34)
[2016-08-25] MEDS: Aztreonam 1 Gm in NS 100mL 100 ML IVPB SCH ×3 (05:26→22:14)
[2016-08-25 07:42] LABS: ADD MANUAL DIFF? NO
[2016-08-25 07:46] LABS: BASO # 0.01 K/mm3 (0.0-2.0); BASO % 0.2 % (0.0-3.0); EOS # 0.3 (0.0-0.7); EOS % 4.4 % (1.5-5.0); GRAN # 3.84 (1.4-6.5); GRAN % 58.8 % (50.0-68.0); HEMATOCRIT 29.1 % (36.0-48.0); LYMPH # 1.6 (1.2-3.4); LYMPH % 24.3 % (22.0-35.0); MEAN CELL VOLUME 87.1 fL (80.0-105.0); MEAN CORPUSCULAR HEMOGLOBIN 28.1 pg (25.0-35.0); MEAN CORPUSCULAR HGB CONC 32.3 g/dl (31.0-37.0); MEAN PLATELET VOLUME 9.4 fl (7.0-11.0); MONO # 0.8 (0.1-0.6); MONO % 12.3 % (1.0-6.0); PLATELET COUNT 320 10^3/uL (120.0-450.0); RED CELL DISTRIBUTION WIDTH 19.7 % (11.5-14.5); WHITE BLOOD COUNT 6.5 10^3/ul (4.5-11.0)
[2016-08-25 08:19] LABS: ALB/GLOB RATIO 0.7 (1.1-1.8); ALKALINE PHOSPHATASE 50 U/L (38-133); ALT/SGPT 17 U/L (7-56); AST/SGOT 26 U/L (15-39); BILIRUBIN,TOTAL 0.5 mg/dL (0.2-1.3); BLOOD UREA NITROGEN 16 mg/dL (7-21); CALCIUM 7.2 mg/dL (8.4-10.5); CARBON DIOXIDE 20 mmol/L (21-33); CHLORIDE 115 mmol/L (95-110); GFR AFRICAN-AMERICAN > 60; GLUCOSE,RANDOM 75 mg/dL (70-110); POTASSIUM 3.6 mmol/L (3.6-5.0); SODIUM 142 mmol/L (132-148); TOTAL PROTEIN 5.5 g/dL (5.8-8.3)
--- NOTE | 2016-08-25 08:49 | PN ---
DATE: 08/25/2016 SUBJECTIVE: The patient has no complaints of any chest pain, no shortness of breath. She says she f eels well. Her pain is controlled. PHYSICAL EXAMINATION: VITAL SIGNS: Temperature is 98.4, pulse of 70, blood pressure 110/68, respirations 20. GENERAL: The patient comfortable, in no acute distress. HEENT: Anicteric sclerae. Moist mucosa. NECK: No JVD or adenopathy. CARDIAC: S1/S2. No murmurs. No rubs. Regular. RESPIRATORY: Clear to auscultation bilaterally. No wheezes, rales, or rhonchi. Good air entry. ABDOMEN: Bowel sounds are positive, soft, nontender, and nondistended. EXTREMITIES: No edema. Has 1+ pulses. LABORATORIES: White count of 6.5, hemoglobin 9.4. Creatinine is 1.2. ASSESSMENT: 1. Left breast wound, status post revision, postop day #3. 2. Coumadin skin necrosis. 3. Protein C deficiency, on Lovenox. 4. Acute anemia, secondary to blood loss with chronic anemia. 5. Acute kidney injury, improved. 6. Hypomagnesemia. 7. Hypertension. 8. Dyslipidemia. 9. PENICILLIN ALLERGY. PLAN: The patient is currently comfortable. The patient has a drain that is in the left breast. Melecio perez is receiving Lasix. She is on Lipitor for dyslipidemia. She is on Lovenox for deep venous thrombo sis prophylaxis. She was given magnesium replacement yesterday. She is on morphine for pain. She i s also on oral magnesium replacement. She is receiving Protonix. The patient is on Zofran as needed , is on Zyvox. She is being followed by Dr. Alcala. I have asked Dr. Zendejas to see the patient as w ell. Ramses Huerta MD cc: [id number] TT: 08/25/2016 08:48:45 Confirmation # [id number] Dictation # [id number] en
--- NOTE | 2016-08-25 09:04 | CP.PCM.PN ---
Subjective - Date & Time of Evaluation Date of Evaluation: 08/25/16 Time of Evaluation: 06:20 - Subjective Subjective: Surgery: Dr. Alcala Pt seen and examined at bedside. No acute events overnight. Pt states her pain is well controlled. Ambulating. Denies any fever, chills, nausea or vomiting. Denies any headaches, dizziness, sob, cp, palpitations, abd pain, urinary or bm changes. Objective - Vital Signs/Intake and Output Vital Signs (last 24 hours): Temp Pulse Resp BP Pulse Ox 98.4 F 70 20 110/68 100 08/24/16 16:59 08/24/16 17:37 08/24/16 16:59 08/24/16 17:38 08/24/16 16:59 Intake and Output: 08/25/16 08/25/16 06:59 18:59 Intake Total 2880 Output Total 0 Balance 2880 - Medications Medications: Current Medications Acetaminophen (Tylenol 325mg Tab) 650 mg PO Q4H PRN PRN Reason: Fever >100.4 F Atorvastatin Calcium (Lipitor) 10 mg PO HS [facility] Last Admin: 08/24/16 21:43 Dose: 10 mg Enoxaparin Sodium (Lovenox) 100 mg SC Q12H [facility] PRN Reason: Protocol Last Admin: 08/24/16 23:47 Dose: 100 mg Fluticasone Propionate (Flonase) 2 actuation NS DAILY [facility] Furosemide (Lasix) 40 mg PO DAILY [facility] Gabapentin (Neurontin) 300 mg PO TID [facility] PRN Reason: Protocol Last Admin: 08/24/16 17:36 Dose: 300 mg Sodium Chloride (Sodium Chloride 0.9%) 1,000 mls @ 100 mls/hr IV .Q10H [facility] Last Admin: 08/24/16 23:48 Dose: 100 mls/hr Aztreonam (Azactam 1 Gm) 100 mls @ 100 mls/hr IVPB Q8 [facility] PRN Reason: Protocol Stop: 09/01/16 22:01 Last Admin: 08/25/16 05:26 Dose: 100 mls/hr Linezolid (Zyvox) 600 mg PO Q12 [facility] PRN Reason: Protocol Last Admin: 08/24/16 21:43 Dose: 600 mg Magnesium Oxide (Mag-Ox) 400 mg PO TID [facility] Last Admin: 08/24/16 17:38 Dose: 400 mg Metoprolol Tartrate (Lopressor) 25 mg PO BID [facility] Last Admin: 08/24/16 17:37 Dose: 25 mg Morphine Sulfate (Morphine) 4 mg IVP Q4H PRN PRN Reason: Pain, severe (8-10) Last Admin: 08/25/16 06:58 Dose: 4 mg Ondansetron HCl (Zofran Inj) 4 mg IVP Q6H PRN PRN Reason: Nausea/Vomiting Last Admin: 08/24/16 13:55 Dose: 4 mg Oxycodone/Acetaminophen (Percocet 5/325 Mg Tab) 1 tab PO Q4H PRN PRN Reason: Pain, moderate (4-7) Stop: 08/26/16 11:01 Last Admin: 08/25/16 01:49 Dose: 1 tab Pantoprazole Sodium (Protonix Ec Tab) 40 mg PO DAILY [facility] Potassium Chloride (K-Dur 20 Meq Er Tab) 20 meq PO BID [facility] Last Admin: 08/24/16 17:36 Dose: 20 meq Promethazine HCl/Dextromethorphan (Phenergan Dm Syrup) 5 ml PO QID [facility] Last Admin: 08/24/16 21:43 Dose: 5 ml - Labs Labs: 08/25/16 07:30 08/25/16 07:30 PT 11.8 Seconds (9.9-11.8) 08/22/16 11:00 INR 1.09 (0.93-1.08) H 08/22/16 11:00 APTT 28.9 Seconds (23.7-30.8) 08/22/16 11:00 - Constitutional Appears: No Acute Distress - ENT Exam ENT Exam: Mucous Membranes Moist - Respiratory Exam Respiratory Exam: Clear to Ausculation Bilateral, NORMAL BREATHING PATTERN - Cardiovascular Exam Cardiovascular Exam: REGULAR RHYTHM, RRR, +S1, +S2. absent: Murmur - GI/Abdominal Exam GI & Abdominal Exam: Soft, Normal Bowel Sounds. absent: Distended, Tenderness - Neurological Exam Neurological Exam: Alert, Awake, Oriented x3 - Skin Additional comments: Incision is CDI, Minimal serosang fluid draining, with slight foul odor noted. Drain slightly displaced. Assessment and Plan - Assessment and Plan (Free Text) Assessment: 61F presents with coumadin induced skin necrosis, s/p revision of L breast wound , POD#3 - Pt is cleared for d/c from surgical standpoint on PO antibioticswith f/u in clinic in 1-2 weeks. - Cont Pain control - Daily dressing changes - Cont to monitor drain output - Encourage OOB, and ambulation - Medical management as per primary Further recs will d/w attending Isaac Wilkins IM Resident PGY-1
[2016-08-25] MEDS: Magnesium Oxide 400 mg Tab UD PO SCH ×3 (09:05→18:14)
[2016-08-25] MEDS: Potassium Chloride 20 mEq ER Tab PO SCH ×2 (09:05→18:14)
[2016-08-25] MEDS: Pantoprazole 40 mg EC Tab PO SCH (09:06)
[2016-08-25] MEDS: Promethazine DM 6.25 mg-15 mg/5 ml Syrup PO SCH ×4 (09:07→22:14)
[2016-08-25] MEDS: Enoxaparin 100 mg Syringe SC SCH ×2 (11:50→22:14)
[2016-08-25] MEDS: Sodium Chloride 0.9% 1,000 ML IV SCH ×2 (14:16→23:32)
--- NOTE | 2016-08-25 17:25 | CP.PCM.PN ---
Subjective - Date & Time of Evaluation Date of Evaluation: 08/25/16 Time of Evaluation: 09:45 - Subjective Subjective: Comfortable, not in distress, no fevers. Objective - Vital Signs/Intake and Output Vital Signs (last 24 hours): Temp Pulse Resp BP Pulse Ox 98.4 F 70 20 110/68 100 08/24/16 16:59 08/24/16 17:37 08/24/16 16:59 08/24/16 17:38 08/24/16 16:59 Intake and Output: 08/25/16 08/25/16 06:59 18:59 Intake Total 2880 Output Total 0 Balance 2880 - Medications Medications: Current Medications Acetaminophen (Tylenol 325mg Tab) 650 mg PO Q4H PRN PRN Reason: Fever >100.4 F Atorvastatin Calcium (Lipitor) 10 mg PO HS [facility] Last Admin: 08/24/16 21:43 Dose: 10 mg Enoxaparin Sodium (Lovenox) 100 mg SC Q12H [facility] PRN Reason: Protocol Last Admin: 08/24/16 23:47 Dose: 100 mg Fluticasone Propionate (Flonase) 2 actuation NS DAILY [facility] Furosemide (Lasix) 40 mg PO DAILY [facility] Gabapentin (Neurontin) 300 mg PO TID [facility] PRN Reason: Protocol Last Admin: 08/24/16 17:36 Dose: 300 mg Sodium Chloride (Sodium Chloride 0.9%) 1,000 mls @ 100 mls/hr IV .Q10H [facility] Last Admin: 08/24/16 23:48 Dose: 100 mls/hr Aztreonam (Azactam 1 Gm) 100 mls @ 100 mls/hr IVPB Q8 [facility] PRN Reason: Protocol Stop: 09/01/16 22:01 Last Admin: 08/25/16 05:26 Dose: 100 mls/hr Linezolid (Zyvox) 600 mg PO Q12 [facility] PRN Reason: Protocol Last Admin: 08/24/16 21:43 Dose: 600 mg Magnesium Oxide (Mag-Ox) 400 mg PO TID [facility] Last Admin: 08/24/16 17:38 Dose: 400 mg Metoprolol Tartrate (Lopressor) 25 mg PO BID [facility] Last Admin: 08/24/16 17:37 Dose: 25 mg Morphine Sulfate (Morphine) 4 mg IVP Q4H PRN PRN Reason: Pain, severe (8-10) Last Admin: 08/25/16 06:58 Dose: 4 mg Ondansetron HCl (Zofran Inj) 4 mg IVP Q6H PRN PRN Reason: Nausea/Vomiting Last Admin: 08/24/16 13:55 Dose: 4 mg Oxycodone/Acetaminophen (Percocet 5/325 Mg Tab) 1 tab PO Q4H PRN PRN Reason: Pain, moderate (4-7) Stop: 08/26/16 11:01 Last Admin: 08/25/16 01:49 Dose: 1 tab Pantoprazole Sodium (Protonix Ec Tab) 40 mg PO DAILY [facility] Potassium Chloride (K-Dur 20 Meq Er Tab) 20 meq PO BID [facility] Last Admin: 08/24/16 17:36 Dose: 20 meq Promethazine HCl/Dextromethorphan (Phenergan Dm Syrup) 5 ml PO QID [facility] Last Admin: 08/24/16 21:43 Dose: 5 ml - Labs Labs: 08/25/16 07:30 08/25/16 07:30 PT 11.8 Seconds (9.9-11.8) 08/22/16 11:00 INR 1.09 (0.93-1.08) H 08/22/16 11:00 APTT 28.9 Seconds (23.7-30.8) 08/22/16 11:00 - Constitutional Appears: Non-toxic, No Acute Distress - Head Exam Head Exam: NORMAL INSPECTION - Neck Exam Neck Exam: absent: Lymphadenopathy, Meningismus - Respiratory Exam Respiratory Exam: Decreased Breath Sounds - Cardiovascular Exam Cardiovascular Exam: +S1, +S2 - GI/Abdominal Exam GI & Abdominal Exam: Soft. absent: Tenderness Assessment and Plan - Assessment and Plan (Free Text) Plan: Assessment Severe sepsis S/P acute renal failure secondary to left breast wound related to warfarin induced necrosis S/P debridement POD #3 history of abdominal wounds, superinfected with MSSA, in a patient with history of probable warfarin associated skin necrosis, S/P wound vacuum placement; S/P debridement and primary closure history of right lower abdominal wall skin and skin structure infection associated with a chronic open wound, growing E. faecalis and Klebsiella history of acute rhabdomyolysis HTN history of transient ischemic attack dyslipidemia hypercoagulable state with Protein C deficiency chronic back pain S/P hysterectomy S/P gastric bypass surgery Plan continue Zyvox and azactam and will monitor clinically
--- NOTE | 2016-08-26 01:25 | CON ---
DATE: 08/25/2016 REQUESTING PHYSICIAN: Dr. Ramses Huerta. REASON FOR CONSULTATION: Hypercoagulable state, chronic anemia, protein C deficiency. HISTORY OF PRESENT ILLNESS: The patient is a 61-year-old female well known to me. She has hypercoagulable state with protein C deficiency. She developed superficial skin necrosis. She developed bilateral breast wound, which were debrided on recent last admission, she developed foul smelling discharge on the left breast. She is currently on Lovenox 100 mg b.i.d. She also developed skin necrosis on the abdomen and infection. She is being followed by home care nurse at home. She injects herself Lovenox. She states that she has been compliant with her Lovenox injection. Her general condition has improved compared to previous visit. She has chronic anemia, iron deficiency related to gastric bypass surgery. She might have iron absorption defect. She also has chronic kidney disease. Denies any fever or chills. No nausea, no vomiting. Able to ambulate without difficulty. She also has morbid obesity. Weight is stable. PAST MEDICAL HISTORY: Hypertension, protein C deficiency, hypercoagulable state , chronic back pain, degenerative disk disease, chronic kidney disease, recurrent rhabdomyolysis, chronic anemia. PAST SURGICAL HISTORY: Abdominal hysterectomy, gastric bypass surgery. FAMILY HISTORY: Mother had breast cancer. No significant family history in father. SOCIAL HISTORY: Lives at home alone. PERSONAL HISTORY: Nonsmoker. No history of alcohol abuse. ALLERGIES: PENICILLIN. HOME MEDICATIONS: Percocet every 6 hours p.r.n., Lovenox 100 mg twice a day, simvastatin 20 daily, potassium 20 mEq daily, Protonix 40 daily, metoprolol 25 mg twice a day, Diovan 80 mg daily. REVIEW OF SYSTEMS: As per HPI. Rest of 12-point review of systems reviewed and negative. PHYSICAL EXAMINATION: GENERAL: Comfortable in bed, awake, alert, oriented, afebrile. VITAL SIGNS: Heart rate is 80 per minute, respiratory 18 per minute, blood pressure 130/80. HEENT: Normal. NECK: No lymphadenopathy. LUNGS: Air entry present, equal bilateral. No added sounds. CARDIOVASCULAR: S1, S2 normal. No murmur, no gallop. ABDOMEN: Soft, nontender, no hepatosplenomegaly. EXTREMITIES: No edema. NEUROLOGIC: Awake, alert, oriented x 3, communicative. BREAST: Bilateral breast in dressing. No discharge. SKIN: No petechia, no rash. SPINE: Nontender. LABORATORY DATA: White count 6.5, hemoglobin 9.4, hematocrit 29.1, platelet count 320. Sodium 142, potassium 3.6, BUN 16, creatinine 0.7, AST 26, ALT 17, total protein 5.5. Coags within normal limits. Micro cultures are negative. ASSESSMENT: 1. Hypercoagulable state. 2. left breast cellulitis, status post debridement. 3. Chronic anemia. 4. Iron deficiency. 5. Chronic kidney disease. 6. Hypertension. 7. Status post gastric bypass surgery. PLAN: Continue the anticoagulation with Lovenox 100 mg subQ b.i.d. She is injecting herself in the abdomen. I advised her to rotate to legs also. I also advised her caution to make sure that skin where she injects is not infected. Home care nurse is visiting. She will need anticoagulation lifelong , currently on Lovenox, would recommend continue same as she lives alone and has history of frequent falls at home. Severe anemia, status post 1 unit of PRBC during this hospitalization. She will need continuation of IV iron. She is noncompliant with her doctors. The only medical service that she avails is home care nurse. I will advise many times during multiple admissions to be compliant with office visits. Hypertension, blood pressure controlled on current medications. Renal, BUN and creatinine stable. Bilateral breasts, surgical team following, status post debridement, status post drain placement, currently on IV antibiotics, aztreonam. ID following. She is also on Zyvox 600 p.o. every 12 hours, Percocet p.r.n. for pain. Thank you, Dr. Huerta, for allowing us to participate in the patient's care. Sylvia Zendejas MD cc: [id number] TT: 08/26/2016 01:24:30 Confirmation # [id number] Dictation # [id number] mn ZORA
[2016-08-26] MEDS: Morphine 4 mg/ml ISec IVP PRN ×4 (04:32→20:20)
[2016-08-26] MEDS: Aztreonam 1 Gm in NS 100mL 100 ML IVPB SCH ×3 (05:17→21:42)
[2016-08-26] MEDS: Oxycodone/Acetaminophen 5/325 mg Tab PO PRN ×3 (06:18→14:53)
[2016-08-26 07:08] LABS: MAGNESIUM 1.2 mg/dL (1.7-2.2); PHOSPHOROUS 2.8 mg/dL (2.5-4.5)
[2016-08-26] MEDS: Potassium Chloride 20 mEq ER Tab PO SCH ×2 (09:40→17:49)
[2016-08-26] MEDS: Magnesium Oxide 400 mg Tab UD PO SCH ×3 (09:40→17:49)
[2016-08-26] MEDS: Pantoprazole 40 mg EC Tab PO SCH (09:41)
--- NOTE | 2016-08-26 09:43 | PN ---
DATE: 08/26/2016 The patient has no complaints of any chest pain, no shortness of breath, no headaches or dizziness. Temperature is 97.9, pulse is 70, blood pressure 105/58, respirations 20. GENERAL: The patient comfortable, in no acute distress. HEENT: Anicteric sclerae. Moist mucosa. NECK: No JVD or adenopathy. CARDIAC: S1/S2. No murmurs. No rubs. Regular. RESPIRATORY: Clear to auscultation bilaterally. No wheezes, rales, or rhonchi. Good air entry. ABDOMEN: Bowel sounds are positive, soft, nontender, and nondistended. EXTREMITIES: No edema. Has 1+ pulses. LABORATORIES: Creatinine is 6.4. Labs have been reviewed. ASSESSMENT: 1. Left breast wounds status post revision, postop day #4. 2. Coumadin skin necrosis. 3. Protein C deficiency. 4. Acute anemia secondary to blood loss, with chronic anemia. 5. Acute kidney injury, improved. 6. Hypomagnesemia. 7. Hypertension. 8. Dyslipidemia. 9. PENICILLIN ALLERGY. PLAN: The patient is currently comfortable. She is going to need to continue her Lovenox. She is i njecting it herself. She did receive a transfusion. The patient is currently on Flonase. She is re ceiving aztreonam for antibiotics. Blood cultures have been negative. She is on Lipitor for dyslipi demia. She is on magnesium replacement. She is receiving Percocet for pain. She is on IV fluids. I will discontinue the patient's IV fluids at this point. Her hemoglobin was stable yesterday at 9.7 . Will await for surgical input when can be safely discharged home. Ramses Huerta MD cc: [id number] TT: 08/26/2016 09:43:42 Confirmation # [id number] Dictation # [id number] abbi
[2016-08-26] MEDS: Promethazine DM 6.25 mg-15 mg/5 ml Syrup PO SCH ×5 (09:58→21:45)
--- NOTE | 2016-08-26 10:40 | CP.PCM.PN ---
Subjective - Date & Time of Evaluation Date of Evaluation: 08/26/16 Time of Evaluation: 06:50 - Subjective Subjective: Surgery: Dr. Alcala Pt seen and examined at bedside. No acute events overnight. Denies any pain at this time. Ambulating. Tolerating diet. Denies any fever, chills, nausea or vomiting. Denies any headaches, dizziness, sob, cp, palpitations, abd pain, urinary or bm changes. Objective - Vital Signs/Intake and Output Vital Signs (last 24 hours): Temp Pulse Resp BP Pulse Ox 97.9 F 73 20 125/90 100 08/25/16 16:00 08/26/16 09:41 08/25/16 16:00 08/26/16 09:41 08/25/16 16:00 Intake and Output: 08/26/16 08/26/16 06:59 18:59 Intake Total 660 344 Balance 660 344 - Medications Medications: Current Medications Acetaminophen (Tylenol 325mg Tab) 650 mg PO Q4H PRN PRN Reason: Fever >100.4 F Atorvastatin Calcium (Lipitor) 10 mg PO HS [facility] Last Admin: 08/25/16 22:13 Dose: 10 mg Enoxaparin Sodium (Lovenox) 100 mg SC Q12H ALEXI PRN Reason: Protocol Last Admin: 08/25/16 22:14 Dose: 100 mg Fluticasone Propionate (Flonase) 2 actuation NS DAILY [facility] Furosemide (Lasix) 40 mg PO DAILY [facility] Last Admin: 08/26/16 09:40 Dose: 40 mg Gabapentin (Neurontin) 300 mg PO TID ALEXI PRN Reason: Protocol Last Admin: 08/26/16 09:40 Dose: 300 mg Aztreonam (Azactam 1 Gm) 100 mls @ 100 mls/hr IVPB Q8 ALEXI PRN Reason: Protocol Stop: 09/01/16 22:01 Last Admin: 08/26/16 05:17 Dose: 100 mls/hr Linezolid (Zyvox) 600 mg PO Q12 ALEXI PRN Reason: Protocol Last Admin: 08/26/16 09:41 Dose: 600 mg Magnesium Oxide (Mag-Ox) 400 mg PO TID [facility] Last Admin: 08/26/16 09:40 Dose: 400 mg Metoprolol Tartrate (Lopressor) 25 mg PO BID [facility] Last Admin: 08/26/16 09:41 Dose: 25 mg Morphine Sulfate (Morphine) 4 mg IVP Q4H PRN PRN Reason: Pain, severe (8-10) Last Admin: 08/26/16 07:44 Dose: 4 mg Ondansetron HCl (Zofran Inj) 4 mg IVP Q6H PRN PRN Reason: Nausea/Vomiting Last Admin: 08/26/16 08:39 Dose: 4 mg Oxycodone/Acetaminophen (Percocet 5/325 Mg Tab) 1 tab PO Q4H PRN PRN Reason: Pain, moderate (4-7) Stop: 08/26/16 11:01 Last Admin: 08/26/16 09:58 Dose: 1 tab Pantoprazole Sodium (Protonix Ec Tab) 40 mg PO DAILY [facility] Last Admin: 08/26/16 09:41 Dose: 40 mg Potassium Chloride (K-Dur 20 Meq Er Tab) 20 meq PO BID [facility] Last Admin: 08/26/16 09:40 Dose: 20 meq Promethazine HCl/Dextromethorphan (Phenergan Dm Syrup) 5 ml PO QID [facility] Last Admin: 08/26/16 09:58 Dose: Not Given - Labs Labs: 08/25/16 07:30 08/25/16 07:30 PT 11.8 Seconds (9.9-11.8) 08/22/16 11:00 INR 1.09 (0.93-1.08) H 08/22/16 11:00 APTT 28.9 Seconds (23.7-30.8) 08/22/16 11:00 - Constitutional Appears: No Acute Distress - ENT Exam ENT Exam: Mucous Membranes Moist - Respiratory Exam Respiratory Exam: Clear to Ausculation Bilateral, NORMAL BREATHING PATTERN - Cardiovascular Exam Cardiovascular Exam: REGULAR RHYTHM, +S1, +S2. absent: Murmur - Neurological Exam Neurological Exam: Alert, Awake, CN II-XII Intact, Normal Gait, Oriented x3 - Skin Additional comments: Incision is C/D/I. Minimal drainage Assessment and Plan - Assessment and Plan (Free Text) Assessment: 61F presents with coumadin induced skin necrosis, s/p revision of L breast wound , POD#3 - Cleared for d/c from surgical standpoint on PO antibiotics - F/u clinic in 1-2 weeks - Cont Pain control - Daily dressing changes - Encourage OOB, and ambulation - Medical management as per primary Further recs will d/w attending Isaac Wilkins IM Resident PGY-1
[2016-08-26] MEDS: Enoxaparin 100 mg Syringe SC SCH ×2 (12:17→22:51)
--- NOTE | 2016-08-26 17:56 | CP.PCM.PN ---
Subjective - Date & Time of Evaluation Date of Evaluation: 08/26/16 Time of Evaluation: 08:30 - Subjective Subjective: Comfortable, afebrile, not in distress. Objective - Vital Signs/Intake and Output Vital Signs (last 24 hours): Temp Pulse Resp BP Pulse Ox 97.8 F 67 18 112/60 100 08/26/16 16:00 08/26/16 17:53 08/26/16 16:00 08/26/16 17:53 08/26/16 16:00 Intake and Output: 08/26/16 08/26/16 06:59 18:59 Intake Total 660 344 Balance 660 344 - Medications Medications: Current Medications Acetaminophen (Tylenol 325mg Tab) 650 mg PO Q4H PRN PRN Reason: Fever >100.4 F Atorvastatin Calcium (Lipitor) 10 mg PO HS [facility] Last Admin: 08/25/16 22:13 Dose: 10 mg Enoxaparin Sodium (Lovenox) 100 mg SC Q12H ALEXI PRN Reason: Protocol Last Admin: 08/26/16 12:17 Dose: 100 mg Fluticasone Propionate (Flonase) 2 actuation NS DAILY [facility] Furosemide (Lasix) 40 mg PO DAILY [facility] Last Admin: 08/26/16 09:40 Dose: 40 mg Gabapentin (Neurontin) 300 mg PO TID ALEXI PRN Reason: Protocol Last Admin: 08/26/16 17:49 Dose: 300 mg Aztreonam (Azactam 1 Gm) 100 mls @ 100 mls/hr IVPB Q8 ALEXI PRN Reason: Protocol Stop: 09/01/16 22:01 Last Admin: 08/26/16 14:50 Dose: 100 mls/hr Linezolid (Zyvox) 600 mg PO Q12 ALEXI PRN Reason: Protocol Last Admin: 08/26/16 09:41 Dose: 600 mg Magnesium Oxide (Mag-Ox) 400 mg PO TID [facility]LEXI Last Admin: 08/26/16 17:49 Dose: 400 mg Metoprolol Tartrate (Lopressor) 25 mg PO BID [facility] Last Admin: 08/26/16 09:41 Dose: 25 mg Morphine Sulfate (Morphine) 4 mg IVP Q4H PRN PRN Reason: Pain, severe (8-10) Last Admin: 08/26/16 12:22 Dose: 4 mg Ondansetron HCl (Zofran Inj) 4 mg IVP Q6H PRN PRN Reason: Nausea/Vomiting Last Admin: 08/26/16 08:39 Dose: 4 mg Oxycodone/Acetaminophen (Percocet 5/325 Mg Tab) 1 tab PO Q4H PRN PRN Reason: Pain, moderate (4-7) Stop: 08/29/16 14:40 Last Admin: 08/26/16 14:53 Dose: 1 tab Pantoprazole Sodium (Protonix Ec Tab) 40 mg PO DAILY [facility] Last Admin: 08/26/16 09:41 Dose: 40 mg Potassium Chloride (K-Dur 20 Meq Er Tab) 20 meq PO BID [facility] Last Admin: 08/26/16 17:49 Dose: 20 meq Promethazine HCl/Dextromethorphan (Phenergan Dm Syrup) 5 ml PO QID [facility] Last Admin: 08/26/16 17:49 Dose: 5 ml - Labs Labs: 08/25/16 07:30 08/25/16 07:30 PT 11.8 Seconds (9.9-11.8) 08/22/16 11:00 INR 1.09 (0.93-1.08) H 08/22/16 11:00 APTT 28.9 Seconds (23.7-30.8) 08/22/16 11:00 - Constitutional Appears: Non-toxic, No Acute Distress - Head Exam Head Exam: NORMAL INSPECTION - Respiratory Exam Respiratory Exam: Decreased Breath Sounds - Cardiovascular Exam Cardiovascular Exam: +S1, +S2 - GI/Abdominal Exam GI & Abdominal Exam: Soft. absent: Tenderness Assessment and Plan - Assessment and Plan (Free Text) Plan: Assessment Severe sepsis S/P acute renal failure secondary to left breast wound related to warfarin induced necrosis S/P debridement POD #4, clinically improving history of abdominal wounds, superinfected with MSSA, in a patient with history of probable warfarin associated skin necrosis, S/P wound vacuum placement; S/P debridement and primary closure history of right lower abdominal wall skin and skin structure infection associated with a chronic open wound, growing E. faecalis and Klebsiella history of acute rhabdomyolysis HTN history of transient ischemic attack dyslipidemia hypercoagulable state with Protein C deficiency chronic back pain S/P hysterectomy S/P gastric bypass surgery Plan continue Zyvox and azactam pending final wound culture results (day 4 of antibiotics today, target 7-10 days of antibiotics)
--- NOTE | 2016-08-26 18:23 | CP.PCM.PN ---
Subjective - Date & Time of Evaluation Date of Evaluation: 08/26/16 Time of Evaluation: 18:00 - Subjective Subjective: Feels better. ON IV antibiotics for breast wound. Surgery following. No fever, cough. Blood counts stable. No bleeding. On full anticoagualtion with lovenox. ambulating without any difficulty. No events overnight. Objective - Vital Signs/Intake and Output Vital Signs (last 24 hours): Temp Pulse Resp BP Pulse Ox 97.8 F 67 18 112/60 100 08/26/16 16:00 08/26/16 17:53 08/26/16 16:00 08/26/16 17:53 08/26/16 16:00 Intake and Output: 08/26/16 08/26/16 06:59 18:59 Intake Total 660 344 Balance 660 344 - Medications Medications: Current Medications Acetaminophen (Tylenol 325mg Tab) 650 mg PO Q4H PRN PRN Reason: Fever >100.4 F Atorvastatin Calcium (Lipitor) 10 mg PO HS [facility] Last Admin: 08/25/16 22:13 Dose: 10 mg Enoxaparin Sodium (Lovenox) 100 mg SC Q12H ALEXI PRN Reason: Protocol Last Admin: 08/26/16 12:17 Dose: 100 mg Fluticasone Propionate (Flonase) 2 actuation NS DAILY [facility] Furosemide (Lasix) 40 mg PO DAILY [facility] Last Admin: 08/26/16 09:40 Dose: 40 mg Gabapentin (Neurontin) 300 mg PO TID ALEXI PRN Reason: Protocol Last Admin: 08/26/16 17:49 Dose: 300 mg Aztreonam (Azactam 1 Gm) 100 mls @ 100 mls/hr IVPB Q8 ALEXI PRN Reason: Protocol Stop: 09/01/16 22:01 Last Admin: 08/26/16 14:50 Dose: 100 mls/hr Linezolid (Zyvox) 600 mg PO Q12 ALEXI PRN Reason: Protocol Last Admin: 08/26/16 09:41 Dose: 600 mg Magnesium Oxide (Mag-Ox) 400 mg PO TID [facility] Last Admin: 08/26/16 17:49 Dose: 400 mg Metoprolol Tartrate (Lopressor) 25 mg PO BID [facility] Last Admin: 08/26/16 09:41 Dose: 25 mg Morphine Sulfate (Morphine) 4 mg IVP Q4H PRN PRN Reason: Pain, severe (8-10) Last Admin: 08/26/16 12:22 Dose: 4 mg Ondansetron HCl (Zofran Inj) 4 mg IVP Q6H PRN PRN Reason: Nausea/Vomiting Last Admin: 08/26/16 08:39 Dose: 4 mg Oxycodone/Acetaminophen (Percocet 5/325 Mg Tab) 1 tab PO Q4H PRN PRN Reason: Pain, moderate (4-7) Stop: 08/29/16 14:40 Last Admin: 08/26/16 14:53 Dose: 1 tab Pantoprazole Sodium (Protonix Ec Tab) 40 mg PO DAILY [facility] Last Admin: 08/26/16 09:41 Dose: 40 mg Potassium Chloride (K-Dur 20 Meq Er Tab) 20 meq PO BID [facility] Last Admin: 08/26/16 17:49 Dose: 20 meq Promethazine HCl/Dextromethorphan (Phenergan Dm Syrup) 5 ml PO QID [facility] Last Admin: 08/26/16 17:49 Dose: 5 ml - Labs Labs: 08/25/16 07:30 08/25/16 07:30 PT 11.8 Seconds (9.9-11.8) 08/22/16 11:00 INR 1.09 (0.93-1.08) H 08/22/16 11:00 APTT 28.9 Seconds (23.7-30.8) 08/22/16 11:00 - Head Exam Head Exam: ATRAUMATIC, NORMAL INSPECTION, NORMOCEPHALIC - Eye Exam Eye Exam: Normal appearance. absent: Conjunctival injection, EOMI, Nystagmus, Periorbital swelling, Periorbital tenderness, PERRL, Scleral icterus - ENT Exam ENT Exam: Mucous Membranes Moist, Normal Exam - Neck Exam Neck Exam: Normal Inspection. absent: Full ROM, Lymphadenopathy, Meningismus, Tenderness, Thyromegaly - Respiratory Exam Respiratory Exam: Clear to Ausculation Bilateral, NORMAL BREATHING PATTERN - Cardiovascular Exam Cardiovascular Exam: REGULAR RHYTHM, +S1, +S2 - GI/Abdominal Exam GI & Abdominal Exam: Soft, Normal Bowel Sounds. absent: Bruit, Distended, Firm , Guarding, Rigid, Tenderness, Diminished Bowel Sounds, Hernia, Hyperactive Bowel Sounds, Hypoactive Bowel Sounds, Organomegaly, Pulsatile Mass, Rebound, Mass - Extremities Exam Extremities Exam: Normal Capillary Refill, Normal Inspection. absent: Calf Tenderness, Full ROM, Joint Swelling, Pedal Edema, Tenderness - Neurological Exam Neurological Exam: Alert, Awake, CN II-XII Intact, Normal Gait, Oriented x3, Reflexes Normal. absent: Abnormal Gait, Altered, Motor Sensory Deficit - Skin Skin Exam: Normal Color, Warm. absent: Abrasion, Cyanosis, Diaphoretic, Dry, Erythema, Intact, Mottled, Pallor, Pallor, Petechiae, Rash, Urticaria, Vesicles - Additional Findings Additional findings: breast in dressing. Assessment and Plan - Assessment and Plan (Free Text) Assessment: ASSESSMENT: 1. Hypercoagulable state. 2. left breast cellulitis, status post debridement. 3. Chronic anemia. 4. Iron deficiency. 5. Chronic kidney disease. 6. Hypertension. 7. Status post gastric bypass surgery. PLAN: 1. Continue the anticoagulation with Lovenox 100 mg subQ b.i.d. She will need anticoagulation lifelong, currently on Lovenox, would recommend continue same as she lives alone and has history of frequent falls at home. 2. Severe anemia, status post 1 unit of PRBC during this hospitalization. She will need continuation of IV iron. She is noncompliant with follow up as out patient. Hb/Hct stable. 3. Hypertension, blood pressure controlled on current medications. 3. Renal, BUN and creatinine stable. 4. Bilateral breasts, surgical team following, status post debridement, currently on IV antibiotics, aztreonam. ID following. She is also on Zyvox 600 p.o. every 12 hours, 5. Percocet p.r.n. for pain. Thank you, Dr. Huerta, for allowing us to participate in the patient's care.
[2016-08-27] MEDS: Oxycodone/Acetaminophen 5/325 mg Tab PO PRN ×4 (03:15→20:31)
[2016-08-27] MEDS: Aztreonam 1 Gm in NS 100mL 100 ML IVPB SCH (05:09)
[2016-08-27] MEDS ORDERED: Magnesium Sulfate 2 GM in Sodium Chloride 0.9% 100 ML IV ONE (06:09)
[2016-08-27 08:37] VITALS: RESP 20
--- NOTE | 2016-08-27 10:38 | DS ---
This is a 61-year-old female who had come in to the hospital because she has wounds on her breasts bi laterally secondary to skin necrosis from Coumadin. The patient was taken to the OR and had debridem ent of her wounds. She had a drain that was then placed in the left breast. Most of the debridement was on the left breast because of necrosis. She currently feels well. The patient was being follow ed by Dr. Alcala who performed the procedure. She is going to be discharged home and continue her w ound care at home and follow up with Dr. Alcala. She has been taking Lovenox for her anticoagulatio n. She does understand she will need to continue this lifetime. She has no complaints of any chest pain, no shortness of breath, no headaches. PHYSICAL EXAMINATION: VITAL SIGNS: Temperature is 97.8, pulse of 67, blood pressure 112/60, respiration is 12. GENERAL: The patient comfortable, in no acute distress. HEENT: Anicteric sclerae. Moist mucosa. NECK: No JVD or adenopathy. CARDIAC: S1/S2. No murmurs. No rubs. Regular. RESPIRATORY: Clear to auscultation bilaterally. No wheezes, rales, or rhonchi. Good air entry. ABDOMEN: Bowel sounds are positive, soft, nontender, and nondistended. EXTREMITIES: No edema. Has 1+ pulses. ASSESSMENT: 1. Left breast wound, status post revision, postoperative day #5. 2. Coumadin skin necrosis. 3. Protein C deficiency. 4. Acute anemia secondary to blood loss with chronic anemia. 5. Acute kidney injury, resolved. 6. Hypomagnesemia. 7. Hypertension. 8. Dyslipidemia. 9. PENICILLIN ALLERGY. PLAN: The patient is currently comfortable. She was given magnesium replacement because of a hypoma gnesemia. The patient is on Lasix. She is receiving Lipitor for dyslipidemia. She is on Lovenox fo r anticoagulation. She is receiving morphine. The patient is on Tylenol. She is going to continue with her linezolid. CONDITION: Stable. ACTIVITIES: Increase as tolerated. FOLLOWUP: With Dr. Alcala in 1-[address] Zendejas for her protein C deficiency. Ramses S Bradley MD cc: [id number] TT: 08/27/2016 10:37:33 mn
[2016-08-27] MEDS: Magnesium Oxide 400 mg Tab UD PO SCH ×3 (10:46→18:08)
[2016-08-27] MEDS: Pantoprazole 40 mg EC Tab PO SCH (10:46)
[2016-08-27] MEDS: Potassium Chloride 20 mEq ER Tab PO SCH ×2 (10:46→18:08)
[2016-08-27] MEDS: Promethazine DM 6.25 mg-15 mg/5 ml Syrup PO SCH ×4 (10:46→22:30)
[2016-08-27] MEDS: Morphine 4 mg/ml ISec IVP PRN ×3 (10:46→23:36)
[2016-08-27] MEDS: Enoxaparin 100 mg Syringe SC SCH ×2 (12:53→22:36)
--- NOTE | 2016-08-27 13:34 | CP.PCM.PN ---
Subjective - Date & Time of Evaluation Date of Evaluation: 08/27/16 Time of Evaluation: 09:10 - Subjective Subjective: Comfortable in bed, not in distress, no fevers overnight, less pain in the chest area. Objective - Vital Signs/Intake and Output Vital Signs (last 24 hours): Temp Pulse Resp BP Pulse Ox 97.8 F 67 18 112/60 100 08/26/16 16:00 08/26/16 17:53 08/26/16 16:00 08/26/16 17:53 08/26/16 16:00 Intake and Output: 08/27/16 08/27/16 06:59 18:59 Intake Total 1564 Balance 1564 - Medications Medications: Current Medications Acetaminophen (Tylenol 325mg Tab) 650 mg PO Q4H PRN PRN Reason: Fever >100.4 F Atorvastatin Calcium (Lipitor) 10 mg PO HS [facility] Last Admin: 08/26/16 21:42 Dose: 10 mg Enoxaparin Sodium (Lovenox) 100 mg SC Q12H ALEXI PRN Reason: Protocol Last Admin: 08/26/16 22:51 Dose: 100 mg Fluticasone Propionate (Flonase) 2 actuation NS DAILY [facility] Furosemide (Lasix) 40 mg PO DAILY [facility] Last Admin: 08/26/16 09:40 Dose: 40 mg Gabapentin (Neurontin) 300 mg PO TID ALEXI PRN Reason: Protocol Last Admin: 08/26/16 17:49 Dose: 300 mg Linezolid (Zyvox) 600 mg PO Q12 ALEXI PRN Reason: Protocol Last Admin: 08/26/16 21:42 Dose: 600 mg Magnesium Oxide (Mag-Ox) 400 mg PO TID [facility] Last Admin: 08/26/16 17:49 Dose: 400 mg Metoprolol Tartrate (Lopressor) 25 mg PO BID [facility] Last Admin: 08/26/16 17:00 Dose: Not Given Morphine Sulfate (Morphine) 4 mg IVP Q4H PRN PRN Reason: Pain, severe (8-10) Last Admin: 08/26/16 20:20 Dose: 4 mg Ondansetron HCl (Zofran Inj) 4 mg IVP Q6H PRN PRN Reason: Nausea/Vomiting Last Admin: 08/26/16 08:39 Dose: 4 mg Oxycodone/Acetaminophen (Percocet 5/325 Mg Tab) 1 tab PO Q4H PRN PRN Reason: Pain, moderate (4-7) Stop: 08/29/16 14:40 Last Admin: 08/27/16 06:45 Dose: 1 tab Pantoprazole Sodium (Protonix Ec Tab) 40 mg PO DAILY [facility] Last Admin: 08/26/16 09:41 Dose: 40 mg Potassium Chloride (K-Dur 20 Meq Er Tab) 20 meq PO BID [facility] Last Admin: 08/26/16 17:49 Dose: 20 meq Promethazine HCl/Dextromethorphan (Phenergan Dm Syrup) 5 ml PO QID [facility] Last Admin: 08/26/16 21:45 Dose: 5 ml - Labs Labs: 08/25/16 07:30 08/25/16 07:30 PT 11.8 Seconds (9.9-11.8) 08/22/16 11:00 INR 1.09 (0.93-1.08) H 08/22/16 11:00 APTT 28.9 Seconds (23.7-30.8) 08/22/16 11:00 - Constitutional Appears: Non-toxic, No Acute Distress - Head Exam Head Exam: NORMAL INSPECTION - Respiratory Exam Respiratory Exam: Decreased Breath Sounds - Cardiovascular Exam Cardiovascular Exam: +S1, +S2 - GI/Abdominal Exam GI & Abdominal Exam: Soft. absent: Tenderness Assessment and Plan - Assessment and Plan (Free Text) Plan: Assessment Severe sepsis S/P acute renal failure secondary to left breast wound related to warfarin induced necrosis S/P debridement POD #5, clinically improving; growing Methicillin-sensitive Staph aureus history of abdominal wounds, superinfected with MSSA, in a patient with history of probable warfarin associated skin necrosis, S/P wound vacuum placement; S/P debridement and primary closure history of right lower abdominal wall skin and skin structure infection associated with a chronic open wound, growing E. faecalis and Klebsiella history of acute rhabdomyolysis HTN history of transient ischemic attack dyslipidemia hypercoagulable state with Protein C deficiency chronic back pain S/P hysterectomy S/P gastric bypass surgery Plan continue Zyvox (day 5 of antibiotics today, target 7-10 days of antibiotics) - as discussed with Dr. coronado, patient will need at least 2 more days of Zyvox Will follow clinically
[2016-08-27] MEDS: Silver Sulfadiazine 1% Cream (20 gm) TOP SCH (14:45)
[2016-08-28] MEDS: Morphine 4 mg/ml ISec IVP PRN (05:56)
[2016-08-28] MEDS: Oxycodone/Acetaminophen 5/325 mg Tab PO PRN (08:49)
--- NOTE | 2016-08-28 09:25 | DS ---
SUBJECTIVE: The patient has no complaints of any chest pain, no shortness of breath, no headaches. She was to be discharged yesterday, but did not have keys to get into her home. PHYSICAL EXAMINATION: VITAL SIGNS: Temperature is 97.9, pulse of 67, blood pressure is 103/59, respirations 20. GENERAL: The patient comfortable, in no acute distress. HEENT: Anicteric sclerae. Moist mucosa. NECK: No JVD or adenopathy. CARDIAC: S1/S2. No murmurs. No rubs. Regular. RESPIRATORY: Clear to auscultation bilaterally. No wheezes, rales, or rhonchi. Good air entry. ABDOMEN: Bowel sounds are positive, soft, nontender, and nondistended. EXTREMITIES: No edema. Has 1+ pulses. ASSESSMENT: 1. Left breast wound, status post revision. 2. Coumadin necrosis. 3. Protein C deficiency. 4. Acute anemia, secondary to blood loss with chronic anemia. 5. Acute kidney injury, resolved. 6. Hypomagnesemia, improved. 7. Hypertension. 8. Dyslipidemia. 9. PENICILLIN ALLERGY. PLAN: The patient is going to continue on her Zyvox. She is on Lasix. She did receive multiple dos es of magnesium and has been on magnesium p.o. She is on Zofran. She is receiving a regular diet. She is going to be discharged home. Please see the discharge summary done yesterday for further info rmation. Ramses Huerta MD cc: [id number] TT: 08/28/2016 09:24:50 en
[2016-08-28] MEDS: Potassium Chloride 20 mEq ER Tab PO SCH (09:39)
[2016-08-28] MEDS: Pantoprazole 40 mg EC Tab PO SCH (09:39)
[2016-08-28] MEDS: Promethazine DM 6.25 mg-15 mg/5 ml Syrup PO SCH (09:40)
[2016-08-28] MEDS: Magnesium Oxide 400 mg Tab UD PO SCH (09:40)
[2016-08-28 09:44] VITALS: BP 112/63
[2016-08-28] MEDS: Silver Sulfadiazine 1% Cream (20 gm) TOP SCH (09:46)
[2016-08-28 10:09] VITALS: PULSE 76; TEMP 97.8; O2SAT 98
--- NOTE | 2016-09-05 11:31 | OP ---
PROCEDURE DATE: 08/22/2016 PREOPERATIVE DIAGNOSIS: Breast necrosis. POSTOPERATIVE DIAGNOSIS: Breast necrosis. OPERATIONS PERFORMED: Partial mastectomy, debridement of the abscess cavity. DESCRIPTION OF PROCEDURE: In the operating room, the patient was identified by name, number, procedu re, laterality and my evelyne. The left breast was identified as the source of the abscess. There was a large cavity within the small skin enclosure. The area was stained with methylene blue and the via ble skin was from this thick necrotic granulating area. This was done circumferentially wi th the cautery. The mass was removed. The base was cauterized and closed over a Goodman drain with Vicryl followed by nylon and fabián. A light pressure dressing was applied. The patient taken to r ecovery room in good condition after the sponge and needle counts were declared correct. Howard Alcala MD cc: [id number] TT: 09/05/2016 11:31:12 va
== END 2016-08-28 11:44 | disposition home or self-care (01) | DRG 987 ==
LOC: ED 07:55 → ERH 11:37 → 3RNO 13:15
PROVIDERS: ADMIT Internal Medicine Nephrology; ATTEND Internal Medicine Nephrology
PROC: 0HBU0ZX Excision of Left Breast, Open Approach, Diagnostic (ICD-10-PCS; principal; 2016-08-22 16:00)
DX: I96 Gangrene, not elsewhere classified (principal); A41.01 Sepsis due to Methicillin susceptible Staphylococcus aureus; N17.9 Acute kidney failure, unspecified; I13.0 Hypertensive heart and chronic kidney disease with heart failure and stage 1 through stage 4 chronic kidney disease, or unspecified chronic kidney disease; D68.59 Other primary thrombophilia; E10.22 Type 1 diabetes mellitus with diabetic chronic kidney disease; I95.9 Hypotension, unspecified; I50.9 Heart failure, unspecified; R65.20 Severe sepsis without septic shock; D62 Acute posthemorrhagic anemia; E83.42 Hypomagnesemia; T45.515A Adverse effect of anticoagulants, initial encounter; Y92.9 Unspecified place or not applicable; D50.9 Iron deficiency anemia, unspecified; E78.5 Hyperlipidemia, unspecified; Z88.0 Allergy status to penicillin; M54.9 Dorsalgia, unspecified; N61.0 Mastitis without abscess; N18.9 Chronic kidney disease, unspecified; Z98.84 Bariatric surgery status; I48.91 Unspecified atrial fibrillation; J45.909 Unspecified asthma, uncomplicated; E66.01 Morbid (severe) obesity due to excess calories; Z79.899 Other long term (current) drug therapy; Z86.73 Personal history of transient ischemic attack (TIA), and cerebral infarction without residual deficits; Z90.710 Acquired absence of both cervix and uterus

== ENCOUNTER 2016-11-18 13:36 | Inpatient (IN) | payer MEDICARE, OTHER ==
--- NOTE | 2016-11-18 14:24 | ED PDOC ---
Arrival/HPI - General Chief Complaint: Chest Pain Time Seen by Provider: 11/18/16 13:41 Historian: Patient - History of Present Illness Narrative History of Present Illness (Text): 11/18/16 14:28 A 61 year old female, whose past medical history includes hypertension, protein c deficiency and anemia, presents to the emergency department complaining of shortness of breath for a month. Patient also notes a cough but denies any other complaints at this time. Patient denies alcohol use, drug use or smoking. PMD: Dr. Huerta Medication: Coumadin Symptom Onset: Sudden Symptom Course: Unchanged Activities at Onset: Rest Context: Home Associated Symptoms (Text): cough Past Medical History - Provider Review Nursing Documentation Reviewed: Yes - Infectious Disease Hx of Infectious Diseases: None - Tetanus Immunization Tetanus Immunization: Unknown - Cardiac Hx Hypertension: Yes - Pulmonary Hx Respiratory Disorders: Yes Hx Asthma: Yes - Neurological Hx Paralysis: No - HEENT Hx HEENT Disorder: No - Renal Hx Renal Disorder: No - Endocrine/Metabolic Hx Endocrine Disorders: No - Hematological/Oncological Hx Blood Transfusions: Yes Hx Blood Transfusion Reaction: No - Integumentary Hx Dermatological Disorder: No - Musculoskeletal/Rheumatological Hx Musculoskeletal Disorders: No - Gastrointestinal Hx Gastrointestinal Disorders: No - Genitourinary/Gynecological Hx Genitourinary Disorders: Yes Hx Urinary Tract Infection: Yes - Psychiatric Hx Emotional Abuse: No Hx Physical Abuse: No Hx Substance Use: No - Past Surgical History Past Surgical History: Non-Contributing - Surgical History Hx Gastric Bypass Surgery: Yes Hx Hysterectomy: Yes Hx Tonsillectomy: Yes Other/Comment: b/l Breast surgery - Anesthesia Hx Anesthesia Reactions: No Hx Malignant Hyperthermia: No - Suicidal Assessment Feels Threatened In Home Enviroment: No Family/Social History - Physician Review Nursing Documentation Reviewed: Yes Family/Social History: No Known Family HX Smoking Status: Never Smoked Hx Alcohol Use: No Hx Substance Use: No Hx Substance Use Treatment: No Allergies/Home Meds Allergies/Adverse Reactions: Allergies Penicillins Allergy (Verified 11/18/16 13:49) ANGIOEDEMA/SHORTNESS OF BREATH ANGIOEDEMA SHORTNESS OF BREATH Home Medications: Home Meds Medication Instructions Recorded Confirmed Gabapentin [Neurontin] 300 mg PO TID 12/05/13 11/18/16 Pantoprazole [Protonix EC Tab] 40 mg PO BID 12/05/13 11/18/16 Simvastatin 20 mg PO HS 11/07/15 11/18/16 Valsartan [Diovan] 80 mg PO QPM 11/07/15 11/18/16 Metoprolol Tartrate 25 mg PO BID 12/10/15 11/18/16 Fluticasone Nasal [Flonase] 2 spr NS DAILY PRN 03/28/16 11/18/16 Furosemide [Lasix] 40 mg PO DAILY 03/28/16 11/18/16 Review of Systems - Physician Review All systems were reviewed & negative as marked: Yes - Review of Systems Constitutional: Fevers Respiratory: SOB, Cough Physical Exam Vital Signs Reviewed: Yes Vital Signs Temp Pulse Resp BP Pulse Ox 11/18/16 16:54 98.6 F 94 H 29 H 96/54 L 100 11/18/16 16:24 89 18 128/45 L 98 11/18/16 15:06 90 18 131/40 L 98 11/18/16 14:00 98.0 F 76 18 81/29 L 100 Temperature: Afebrile Blood Pressure: Hypotensive Pulse: Regular Respiratory Rate: Normal Appearance: Positive for: Well-Appearing, Non-Toxic, Comfortable Pain Distress: None Mental Status: Positive for: Alert and Oriented X 3 - Systems Exam Head: Present: Atraumatic, Normocephalic Pupils: Present: PERRL Extroacular Muscles: Present: EOMI Conjunctiva: Present: Normal Mouth: Present: Moist Mucous Membranes Neck: Present: Normal Range of Motion Respiratory/Chest: Present: Clear to Auscultation, Good Air Exchange. No: Respiratory Distress, Accessory Muscle Use Cardiovascular: Present: Regular Rate and Rhythm, Normal S1, S2. No: Murmurs Abdomen: Present: Normal Bowel Sounds. No: Tenderness, Distention, Peritoneal Signs Back: Present: Normal Inspection Upper Extremity: Present: Normal Inspection. No: Cyanosis, Edema Lower Extremity: Present: Edema (b/l lower legs but no tension or evidence of compartment syndrome) Neurological: Present: GCS=15, CN II-XII Intact, Speech Normal, Other (no muscle rigidity ) Skin: Present: Warm, Dry, Normal Color. No: Rashes Psychiatric: Present: Alert, Oriented x 3, Normal Insight, Normal Concentration Medical Decision Making ED Course and Treatment: 11/18/16 14:20 Impression: A 61 year old female with shortness of breath. Differential Diagnosis included but are not limited to: Congestive heart failure vs. Pneumonia vs Anemia Plan: -- EKG -- labs -- chest xray -- Reassess and disposition Prior Visits: Notes and results from previous visits were reviewed. Patient last reported to the emergency department on 09/11/16 for evaluation of wound and discharge of right breast. Patient hospitalized under Dr. Huerta's service. Patient was discharged on 09/18/16. Progress Notes: EKG: Ordered, reviewed, and independently interpreted the EKG. Rate : 83 BPM Rhythm : NSR Interpretation : No ST-segment elevations or depressions, no T-wave inversions, normal intervals. Comparison : No previous EKG for comparison. 11/18/16 17:40 After 2 liters of IVF patient's lungs clear. Will continue hydration. Case discussed with Dr. Conteh who admit patient to the ICU. Bicarb ordered. Continuous IVF. Dimer is most likely elevated secondary to Rhabdomylosis. Patient is comfortable with no shortness of breathe. 11/18/16 17:48 Right EJ became infiltrated. IV line removed by me. Warm compresses placed. 11/18/16 17:59 Central line to be placed by Dr. Conteh at bedside. Case was discussed with Dr. Funez who will place on his service. - Critical Care Critical Care Minutes: 30 minutes - Lab Interpretations Lab Results: 11/18/16 14:03 11/18/16 14:03 Lab Results 11/18/16 17:05: pO2 95 H, VBG pH 7.08 L*, VBG pCO2 45.0, VBG HCO3 13.3 L, VBG Total CO2 14.7 L, VBG O2 Sat (Calc) 96.9 H, VBG Base Excess -16.0 L, VBG Potassium 3.1 L, Glucose 68, Lactate 2.2 H, FiO2 21.0, Sodium 130.0 L, Chloride 102.0, Venous Blood Potassium 3.1 L 11/18/16 14:03: Sodium 129 L, Potassium 3.0 L, Chloride 99, Carbon Dioxide 14 L , Anion Gap 19, BUN 66 H, Creatinine 4.6 H, Est GFR ( Amer) 12, Est GFR ( Non-Af Amer) 10, Random Glucose 81, Calcium 7.5 L, Lactate Dehydrogenase 1016 H , Total Creatine Kinase 6889 H, CK-MB (CK-2) 23.2 H, CK-MB (CK-2) % 0.3 L, Troponin I 0.02 D, NT-Pro-B Natriuret Pep 785 H 11/18/16 14:03: PT 11.3, INR 1.05, APTT 32.7 H, D-Dimer, Quantitative 3.29 H 11/18/16 14:03: WBC 9.7 D, RBC 3.03 L, Hgb 8.7 L, Hct 25.7 L, MCV 84.8, MCH 28.7, MCHC 33.9, RDW 17.3 H, Plt Count 214, MPV 9.8, Gran % 78.7 H, Lymph % ( Auto) 9.7 L, [place] % (Auto) 10.6 H, Eos % (Auto) 0.8 L, Baso % (Auto) 0.2, Gran # 7.59 H, Lymph # 0.9 L, [place] # 1.0 H, Eos # 0.1, Baso # 0.02 I have reviewed the lab results: Yes Interpretation: Abnormal lab values - RAD Interpretation Radiology Orders: 11/18/16 14:04 CHEST PORTABLE [RAD] Stat CXR nl Sandwich Counter Attendant: ED Physician - EKG Interpretation Interpreted by ED Physician: Yes Type: 12 lead EKG - Medication Orders Current Medication Orders: Sodium Chloride (Sodium Chloride 0.9%) 1,000 mls @ 999 mls/hr IV .Q1H1M STA Stop: 11/18/16 18:34 Potassium Chloride (Potassium Chloride 20 Meq/100 Ml) 20 meq in 100 mls @ 50 mls/hr IVPB Q2H ALEXI Stop: 11/18/16 21:44 Sodium Bicarbonate 150 meq/ (Dextrose) 1,150 mls @ 200 mls/hr IV .Q5H45M ALEXI Discontinued Medications Sodium Chloride (Sodium Chloride 0.9%) 500 mls @ 999 mls/hr IV .Q31M STA Stop: 11/18/16 15:31 Last Admin: 11/18/16 15:35 Dose: 999 mls/hr Calcium Gluconate 1,000 mg/ (Sodium Chloride) 110 mls @ 110 mls/hr IVPB ONCE ONE Stop: 11/18/16 16:03 Last Admin: 11/18/16 16:00 Dose: 110 mls/hr Sodium Chloride (Sodium Chloride 0.9%) 1,000 mls @ 999 mls/hr IV .Q1H1M STA Stop: 11/18/16 17:25 Last Admin: 11/18/16 16:54 Dose: 999 mls/hr Sodium Bicarbonate 150 meq/ (Dextrose) 1,150 mls @ 100 mls/hr IV .[id number] ALEXI Potassium Chloride (K-Dur 20 Meq Er Tab) 40 meq PO STAT STA Stop: 11/18/16 15:05 Last Admin: 11/18/16 15:34 Dose: 40 meq Sodium Bicarbonate (Sodium Bicarbonate (8.4%) 50 Meq Syringe) 50 meq IVP ONCE ONE Stop: 11/18/16 17:30 - Scribe Statement The provider has reviewed the documentation as recorded by the [facility] Provider Scribe Attestation: All medical record entries made by the Scribe were at my direction and personally dictated by me. I have reviewed the chart and agree that the record accurately reflects my personal performance of the history, physical exam, medical decision making, and the department course for this patient. I have also personally directed, reviewed, and agree with the discharge instructions and disposition. Disposition/Present on Arrival - Present on Arrival Any Indicators Present on Arrival: No History of DVT/PE: No History of Uncontrolled Diabetes: No Urinary Catheter: No History of Decub. Ulcer: No History Surgical Site Infection Following: None - Disposition Have Diagnosis and Disposition been Completed?: Yes Diagnosis: Rhabdomyolysis, Acute renal failure Disposition: HOSPITALIZED Disposition Time: 17:43 Patient Plan: ICU Patient Problems: Current Active Problems Problem Status Onset Acute renal failure Acute Rhabdomyolysis Acute Condition: CRITICAL Referrals: Ramses Huerta MD [Primary Care Provider] - Follow up with primary
[2016-11-18 14:44] LABS: ADD MANUAL DIFF? NO
[2016-11-18 14:48] LABS: BASO # 0.02 K/mm3 (0.0-2.0); BASO % 0.2 % (0.0-3.0); EOS # 0.1 (0.0-0.7); EOS % 0.8 % (1.5-5.0); GRAN # 7.59 (1.4-6.5); GRAN % 78.7 % (50.0-68.0); HEMATOCRIT 25.7 % (36.0-48.0); LYMPH # 0.9 (1.2-3.4); LYMPH % 9.7 % (22.0-35.0); MEAN CELL VOLUME 84.8 fL (80.0-105.0); MEAN CORPUSCULAR HEMOGLOBIN 28.7 pg (25.0-35.0); MEAN CORPUSCULAR HGB CONC 33.9 g/dl (31.0-37.0); MEAN PLATELET VOLUME 9.8 fl (7.0-11.0); MONO % 10.6 % (1.0-6.0); PLATELET COUNT 214 10^3/uL (120.0-450.0); RED CELL DISTRIBUTION WIDTH 17.3 % (11.5-14.5); WHITE BLOOD COUNT 9.7 10^3/ul (4.5-11.0)
[2016-11-18 14:56] LABS: CALCIUM 7.5 mg/dL (8.4-10.5)
--- NOTE | 2016-11-18 15:00 | RAD ---
HISTORY: sob COMPARISON: 07/07/2016 FINDINGS: LUNGS: No active pulmonary disease. PLEURA: No significant pleural effusion identified, no pneumothorax apparent. CARDIOVASCULAR: Normal. OSSEOUS STRUCTURES: No significant abnormalities. VISUALIZED UPPER ABDOMEN: Normal. OTHER FINDINGS: None. IMPRESSION: No active disease.
[2016-11-18] MEDS ORDERED: Sodium Chloride 0.9% 500 ML IV STA (15:01)
[2016-11-18] MEDS ORDERED: Potassium Chloride 20 mEq ER Tab PO STA (15:04)
[2016-11-18 15:09] LABS: TROPONIN I 0.02 ng/mL
[2016-11-18 16:03] LABS: D DIMER 3.29 mg/L FEU (0-0.50); INR 1.05 (0.93-1.08); PARTIAL THROMBOPLASTIN TIME 32.7 Seconds (23.7-30.8)
[2016-11-18] MEDS ORDERED: Sodium Chloride 0.9% 1,000 ML IV STA ×2 (16:25→17:34)
--- NOTE | 2016-11-18 17:18 | CARD ---
APPROVED REPORT EKG Measurement Heart [id number] <Conclusion> Normal sinus rhythm Normal ECG
[2016-11-18 17:26] LABS: VENOUS BLOOD PH 7.08 (7.32-7.43)
[2016-11-18] MEDS ORDERED: Sodium Bicarbonate (8.4%) 50 Meq Syringe IVP ONE (17:29)
[2016-11-18] MEDS ORDERED: Sodium Bicarbonate 8.4% 150 MEQ in Dextrose 5% In Water 1,000 ML IV SCH ×2 (17:45)
--- NOTE | 2016-11-18 23:02 | PCM.PROC ---
<Josh Garcia - Last Filed: 11/18/16 22:59> Procedures Attestation:: I certify that I have explained the specified Operation(s) or Procedure(s), risks, benefits and reasonable alternatives to the Patient and/or other person responsible. The opportunity was given to ask questions and all questions answered - Central Line Placement Right Femoral Triple Lumen Catheter Aseptic technique was employed throughout the procedure: Hand Hygiene done prior to procedure, Full sterile barriers (mask, hair cover, sterile gown, sterile gloves), Full body sterile drape, Chloraprep Antiseptic: 30 second prep for IJ or SC sites, Chloraprep Antiseptic: 2 minute prep for Femoral CVP Time Out Performed: Yes Pt. Placed on Pulse Ox Monitor: Yes Central Line Prep: Chlorhexidine-Alcohol Combination Local Anesthesia Used: Lidocaine 1% Amount of Anesthesia Used (mls): 5 Ultrasound Used for Placement: Yes Central Line Lumen Inserted: triple Central Line Length: 16 cm Immediate Complications: None (unsuccessful line placement; wire and line kinked done under the direct supervision of Dr. Patel pressure dressing applied to the site where we attempted line placement and there is no residiual bleeding ) <Demetri Patel - Last Filed: 11/19/16 04:19> Attending/Attestation - Attestation I have personally seen and examined this patient.: Yes I have fully participated in the care of the patient.: Yes I have reviewed all pertinent clinical information, including history, physical exam and plan: Yes Notes (Text): 11/19/16 04:18 Unsuccessful line placement due to guidewire becoming kinked; likely secondary to pannus. No oozing after pressure was removed from the wound; will follow up AM CBC, patient tolerated the procedure well.
[2016-11-18 23:10] LABS: VENOUS BLOOD GAS BASE EXCESS -10.3 mmol/L (0.0-2.0); VENOUS BLOOD PH 7.24 (7.32-7.43)
[2016-11-19 00:35] VITALS: BMI 29.8
--- NOTE | 2016-11-19 02:03 | CON ---
DATE: 11/18/2016 HISTORY OF PRESENT ILLNESS: The patient seen and examined at bedside. This is a 61-year-old lady with history of PE in the past, procoagulopathy, who presented with several days of increased shortness of breath, some fatigue. She denies any chest pain, fever, chills, sweats, nausea, vomiting, diarrhea. The patient was found to have rhabdomyolysis and acute kidney injury on examination at the ER. She was borderline normotensive and ICU was called for all above. PAST MEDICAL HISTORY: Asthma, coronary artery disease. Hypertension, hypercholesterolemia. PAST SURGICAL HISTORY: Hysterectomy, tonsillectomy. ALLERGIES: PENICILLIN ANGIOEDEMA. MEDICATIONS AT HOME: Neurontin, Protonix, simvastatin, Diovan, metoprolol, Flonase, Lasix. REVIEW OF SYSTEMS: Revealed 12 organ system other than mentioned in history of present illness is negative. FAMILY HISTORY: Noncontributory. SOCIAL HISTORY: No alcohol or illicit drug abuse. No tobacco smoking. PHYSICAL EXAMINATION: VITAL SIGNS: Blood pressure 109/55, heart rate 95, respiratory rate 16, oxygen saturation 95% on room air. HEAD AND NECK: Atraumatic. LUNGS: Clear to auscultation bilaterally. HEART: Regular rate and rhythm. S1S2 normal. ABDOMEN: Soft, nontender, nondistended. MUSCULOSKELETAL: No cyanosis, clubbing or edema. NEUROLOGIVC: moves all extremities spontaneously. PSYCHIATRIC: The patient is alert and oriented x 3. There is no rigidity in any muscle group. The pulses on both a. radialis and DP are full. LABORATORY DATA: WBC 9.7, hemoglobin 9.7, platelet count 214. Sodium 129, potassium 3, chloride 99, carbon dioxide 14, BUN 66, creatinine 4.6, calcium 7.5. Troponin 0.02. Chest x-ray, no acute cardiopulmonary disease. ASSESSMENT AND PLAN: This is a 61-year-old lady who presented with rhabdomyolysis and acute kidney injury. She has received aggressive hydration. Her pH is 7.08 and we will start bicarbonate drip as well. Will continue with BMP every 4-6 hours. Attempt at placing left IJ CVC was unsuccessful. The IV access issue was signed out to ER doctor, Dr. Jay. The patient is physically in the Emergency Room at present time. I will also order echocardiogram and nephrology consult. We will put Reyes catheter in to monitor u/o with the goal of more then 0.5 cc/kg/hr and we will proceed with deep venous thrombosis and gastrointestinal prophylaxis. ccm time 40 min Shon Conteh MD cc: [id number] TT: 11/19/2016 02:02:26 Confirmation # [id number] Dictation # [id number] mn ZORA
[2016-11-19 06:58] LABS: ADD MANUAL DIFF? NO
[2016-11-19 07:13] LABS: BASO # 0.02 K/mm3 (0.0-2.0); BASO % 0.3 % (0.0-3.0); EOS # 0.1 (0.0-0.7); EOS % 1.6 % (1.5-5.0); GRAN # 5.48 (1.4-6.5); GRAN % 73.5 % (50.0-68.0); HEMATOCRIT 27.2 % (36.0-48.0); LYMPH # 1.3 (1.2-3.4); LYMPH % 16.9 % (22.0-35.0); MEAN CELL VOLUME 83.7 fL (80.0-105.0); MEAN CORPUSCULAR HEMOGLOBIN 28.3 pg (25.0-35.0); MEAN CORPUSCULAR HGB CONC 33.8 g/dl (31.0-37.0); MEAN PLATELET VOLUME 10.5 fl (7.0-11.0); MONO # 0.6 (0.1-0.6); MONO % 7.7 % (1.0-6.0); PLATELET COUNT 214 10^3/uL (120.0-450.0); RED CELL DISTRIBUTION WIDTH 17.3 % (11.5-14.5); WHITE BLOOD COUNT 7.5 10^3/ul (4.5-11.0)
[2016-11-19 07:17] LABS: CALCIUM 7.9 mg/dL (8.4-10.5)
[2016-11-19 08:17] LABS: MAGNESIUM 1.4 mg/dL (1.7-2.2)
[2016-11-19] MEDS ORDERED: Magnesium Sulfate 2 GM in Sodium Chloride 0.9% 100 ML IV ONE (08:49)
[2016-11-19] MEDS ORDERED: Potassium Chloride 20 mEq ER Tab PO ONE ×2 (08:50→14:00)
--- NOTE | 2016-11-19 09:13 | CP.CCUPN ---
CCU Subjective - Physician Review Subjective (Free Text): 11/19/16 09:10 Pt AAOx3, stating she didn't sleep well overnight but this has been a chronic issue. Denies pain, drainage, SOB. Last BM was 4-5 days ago CCU Objective - Vital Signs / Intake & Output Vital Signs (Last 4 hours): Vital Signs Pulse 11/19/16 07:00 94 H Intake and Output (Last 8hrs): Intake & Output 11/18/16 11/19/16 11/19/16 22:59 06:59 14:59 Intake Total 1620 Output Total 500 Balance 1120 Weight 202 lb Intake: Oral 120 Other 1500 Output: Urine 500 Urine, Voided 500 Other: Voiding Method Indwelling Catheter # Voids Urine, Voided 2 - Physical Exam Head: Positive for: Atraumatic, Normocephalic Pupils: Positive for: PERRL Extroacular Muscles: Positive for: EOMI Conjunctiva: Positive for: Normal. Negative for: Injected, Icteric Mouth: Positive for: Moist Mucous Membranes Neck: Positive for: Normal Range of Motion Respiratory/Chest: Positive for: Clear to Auscultation, Good Air Exchange. Negative for: Respiratory Distress, Accessory Muscle Use Cardiovascular: Positive for: Regular Rate and Rhythm, Normal S1, S2. Negative for: Murmurs Abdomen: Positive for: Normal Bowel Sounds. Negative for: Tenderness, Distention, Peritoneal Signs Back: Positive for: Normal Inspection Upper Extremity: Positive for: Normal Inspection. Negative for: Cyanosis, Edema Lower Extremity: Positive for: Edema (b/l lower legs but no tension or evidence of compartment syndrome; 1+ pedal pulses b/l) Neurological: Positive for: GCS=15, CN II-XII Intact, Speech Normal, Other (no muscle rigidity ) Skin: Positive for: Warm, Dry, Normal Color, Other (ulcers on breasts, abdomen, back of R thigh, non drainging, no necrosis). Negative for: Rashes Psychiatric: Positive for: Alert, Oriented x 3, Normal Insight, Normal Concentration - Medications Active Medications: Active Medications Generic Name Dose Route Start Last Admin Trade Name Freq PRN Reason Stop Dose Admin Sodium Bicarbonate 150 meq/ 1,150 mls @ 100 mls/hr 11/19/16 08:44 Dextrose IV .[id number] ALEXI Heparin Sodium/Sodium Chloride 25,000 units in 250 mls @ 10.995 mls/hr 08:47 Heparin 59033 Units/250ml 1/2 Normal Saline IV .[id number] PRN ADJUST RATE PER PROTOCOL Protocol 12 UNITS/KG/HR Magnesium Sulfate 2 gm/ Sodium 104 mls @ 102 mls/hr 11/19/16 08:49 Chloride IV 11/19/16 09:50 ONCE ONE Potassium Chloride 20 meq 11/19/16 14:00 K-Dur 20 Meq Er Tab PO 11/19/16 14:01 ONCE ONE - Patient Studies Lab Studies: Lab Studies 11/19/16 11/19/16 11/19/16 Range/Units 06:45 06:45 06:45 WBC 7.5 D (4.5-11.0) 10^3/ul RBC 3.25 L (3.5-6.1) 10^6/uL Hgb 9.2 L (12.0-16.0) gm/dL Hct 27.2 L (36.0-48.0) % MCV 83.7 (80.0-105.0) fL MCH 28.3 (25.0-35.0) pg MCHC 33.8 (31.0-37.0) g/dl RDW 17.3 H (11.5-14.5) % Plt Count 214 (120.0-450.0) 10^3/uL MPV 10.5 (7.0-11.0) fl Gran % 73.5 H (50.0-68.0) % Lymph % (Auto) 16.9 L (22.0-35.0) % [place] % (Auto) 7.7 H (1.0-6.0) % Eos % (Auto) 1.6 (1.5-5.0) % Baso % (Auto) 0.3 (0.0-3.0) % Gran # 5.48 (1.4-6.5) Lymph # 1.3 (1.2-3.4) [place] # 0.6 (0.1-0.6) Eos # 0.1 (0.0-0.7) Baso # 0.02 (0.0-2.0) K/mm3 pO2 (30-55) mm/Hg VBG pH (7.32-7.43) VBG pCO2 (40-60) VBG HCO3 (21-28) mmol/l VBG Total CO2 (22-28) mmol.L VBG O2 Sat (Calc) (40-65) % VBG Base Excess (0.0-2.0) mmol/L VBG Potassium (3.6-5.2) mmol/L Sodium 138 (132-148) mmol/L Chloride 105 (98-107) mmol/L Glucose (65-105) mg/dl Lactate (0.7-2.1) mmol/L FiO2 % Potassium 3.0 L (3.6-5.0) mmol/L Carbon Dioxide 17 L (21-33) mmol/L Anion Gap 19 (10-20) BUN 57 H (7-21) mg/dL Creatinine 2.0 H (0.5-1.4) mg/dL Est GFR ( Amer) 31 Est GFR (Non-Af Amer) 25 Random Glucose 92 (70-110) mg/dL Calcium 7.9 L (8.4-10.5) mg/dL Phosphorus 6.0 H (2.5-4.5) mg/dL Magnesium 1.4 L (1.7-2.2) mg/dL Total Creatine Kinase 5175 H (35-230) U/L CK-MB (CK-2) 13.7 H (0.0-3.6) ng/mL CK-MB (CK-2) % 0.3 L (2.5-3.0) % Venous Blood Potassium (3.6-5.2) mmol/L 11/18/16 11/18/16 Range/Units 23:07 23:07 WBC (4.5-11.0) 10^3/ul RBC (3.5-6.1) 10^6/uL Hgb (12.0-16.0) gm/dL Hct (36.0-48.0) % MCV (80.0-105.0) fL MCH (25.0-35.0) pg MCHC (31.0-37.0) g/dl RDW (11.5-14.5) % Plt Count (120.0-450.0) 10^3/uL MPV (7.0-11.0) fl Gran % (50.0-68.0) % Lymph % (Auto) (22.0-35.0) % [place] % (Auto) (1.0-6.0) % Eos % (Auto) (1.5-5.0) % Baso % (Auto) (0.0-3.0) % Gran # (1.4-6.5) Lymph # (1.2-3.4) [place] # (0.1-0.6) Eos # (0.0-0.7) Baso # (0.0-2.0) K/mm3 pO2 21 L (30-55) mm/Hg VBG pH 7.24 L (7.32-7.43) VBG pCO2 38.0 L (40-60) VBG HCO3 16.3 L (21-28) mmol/l VBG Total CO2 17.5 L (22-28) mmol.L VBG O2 Sat (Calc) 35.1 L (40-65) % VBG Base Excess -10.3 L (0.0-2.0) mmol/L VBG Potassium 3.7 (3.6-5.2) mmol/L Sodium 135.0 (132-148) mmol/L Chloride 107.0 (98-107) mmol/L Glucose 90 (65-105) mg/dl Lactate 1.0 (0.7-2.1) mmol/L FiO2 21.0 % Potassium (3.6-5.0) mmol/L Carbon Dioxide (21-33) mmol/L Anion Gap (10-20) BUN (7-21) mg/dL Creatinine (0.5-1.4) mg/dL Est GFR ( Amer) Est GFR (Non-Af Amer) Random Glucose (70-110) mg/dL Calcium (8.4-10.5) mg/dL Phosphorus (2.5-4.5) mg/dL Magnesium (1.7-2.2) mg/dL Total Creatine Kinase 7289 H (35-230) U/L CK-MB (CK-2) 18.7 H (0.0-3.6) ng/mL CK-MB (CK-2) % 0.3 L (2.5-3.0) % Venous Blood Potassium 3.7 (3.6-5.2) mmol/L Laboratory Results - last 24 hr 11/18/16 11/18/16 11/19/16 23:07 23:07 06:45 WBC 7.5 D RBC 3.25 L Hgb 9.2 L Hct 27.2 L MCV 83.7 MCH 28.3 MCHC 33.8 RDW 17.3 H Plt Count 214 MPV 10.5 Gran % 73.5 H Lymph % (Auto) 16.9 L [place] % (Auto) 7.7 H Eos % (Auto) 1.6 Baso % (Auto) 0.3 Gran # 5.48 Lymph # 1.3 [place] # 0.6 Eos # 0.1 Baso # 0.02 pO2 21 L VBG pH 7.24 L VBG pCO2 38.0 L VBG HCO3 16.3 L VBG Total CO2 17.5 L VBG O2 Sat (Calc) 35.1 L VBG Base Excess -10.3 L VBG Potassium 3.7 Sodium 135.0 Chloride 107.0 Glucose 90 Lactate 1.0 FiO2 21.0 Potassium Carbon Dioxide Anion Gap BUN Creatinine Est GFR ( Amer) Est GFR (Non-Af Amer) Random Glucose Calcium Phosphorus Magnesium Total Creatine Kinase 7289 H CK-MB (CK-2) 18.7 H CK-MB (CK-2) % 0.3 L Venous Blood Potassium 3.7 11/19/16 11/19/16 06:45 06:45 WBC RBC Hgb Hct MCV MCH MCHC RDW Plt Count MPV Gran % Lymph % (Auto) [place] % (Auto) Eos % (Auto) Baso % (Auto) Gran # Lymph # [place] # Eos # Baso # pO2 VBG pH VBG pCO2 VBG HCO3 VBG Total CO2 VBG O2 Sat (Calc) VBG Base Excess VBG Potassium Sodium 138 Chloride 105 Glucose Lactate FiO2 Potassium 3.0 L Carbon Dioxide 17 L Anion Gap 19 BUN 57 H Creatinine 2.0 H Est GFR ( Amer) 31 Est GFR (Non-Af Amer) 25 Random Glucose 92 Calcium 7.9 L Phosphorus 6.0 H Magnesium 1.4 L Total Creatine Kinase 5175 H CK-MB (CK-2) 13.7 H CK-MB (CK-2) % 0.3 L Venous Blood Potassium Critical Care Progress Note - Nutrition Nutrition: Nutrition Category Date Time Status Heart Healthy Diet [DIET] Diets 11/20/16 Breakfast Ordered Assessment/Plan - Assessment and Plan (Free Text) Plan: 61 AA F, in hypercoagulable state with PMHx PE, protein C & (+) antiphosphophid ab, TIAs, deficiency on lovenox, chronic anemia Hx of gastric bypass, recurrent rhabdomyolysis, 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 Pt states that no recent change of medication. Pt states that she sit in couch or lying in bed more than 6 hours a day in addition to sleeping, which was chronic. Her recurrent rhabdomyolysis could be genetics. Neuro - No active issue Cardio - Echo (06/2016): EF 65-70%; RVSP 51 Pulm - No active issue GI - No active issue - HHD - CK 6000 --> 7000 --> 5000 - Watch acute tubular necrosis - Bicarb in D5W 150 meq @ 100 - K-Dur Endo - no active issue Heme - heparin gtt for DVT/PE - chronic anemia s/p gastric bypass - PICC today - Consider Metabolic Myopathy and Rhabdomyolysis Panel outpatient ID - No sign of infection on skin ulcers Prophylaxis - heparin gtt s/p PICC Disposition - Home health aid visits every other day. Will S/R/D/w Dr. Conteh - Date & Time Date: 11/19/16 Time: 09:15
[2016-11-19] MEDS: Sodium Bicarbonate 8.4% 150 MEQ in Dextrose 5% In Water 1,000 ML IV SCH ×2 (09:20→18:32)
--- NOTE | 2016-11-19 09:34 | RAD ---
HISTORY: s/p left IJ central line placement r/o ptx COMPARISON: No prior. 11/18/2016 at 2:17 p.m. FINDINGS: The left IJV line is in the SVC with its tip directed cranially. LUNGS: The lungs are clear. PLEURA: Question of small left apical pneumothorax. No significant pleural effusion identified. CARDIOVASCULAR: Normal. OSSEOUS STRUCTURES: No significant abnormalities. VISUALIZED UPPER ABDOMEN: Normal. OTHER FINDINGS: None. IMPRESSION: 1. Left IJV line is in the SVC with its tip directed cranially. Repeat PA radiograph is recommended for definitive evaluation. 2. Question of small left apical pneumothorax. Important findings were discussed with nurse Santoro on 11/19/2016 at 9:30 a.m..
[2016-11-19] MEDS ORDERED: Lidocaine 2% Inj (20ml) ONE (09:37)
--- NOTE | 2016-11-19 09:44 | PN ---
DATE: 11/19/2016 The patient was seen and examined at bedside. She subjectively reports doing better. She is more alert, awake, and feels stronger. PHYSICAL EXAMINATION: VITAL SIGNS: Temperature 98.1, heart rate 94, blood pressure 121/64, respiratory rate 16, oxygen saturation 94% on nasal cannula 4 liters per minute. HEAD AND NECK: Atraumatic. LUNGS: Clear to auscultation bilaterally. HEART: Regular rate and rhythm. S1, S2 normal. ABDOMEN: Soft, nontender, nondistended. MUSCULOSKELETAL: No C/C/E. NEUROLOGIC: The patient moves all extremities spontaneously. SKIN: Moist. PSYCHIATRIC: The patient is alert and oriented x 3. LABORATORIES: WBC 7.5, hemoglobin 9.2, platelet count 214. Sodium 138, potassium 3 (supplemented), chloride 105, carbon dioxide 17, BUN 57, creatinine 2 down from 4.6, glucose 92, calcium 7.9. CPK 5175, down from 7289. MEDICATIONS: Heparin drip, magnesium supplementation, bicarbonate drip. ASSESSMENT AND PLAN: This is a 61-year-old lady who presented with rhabdomyolysis and related to acute tubular necrosis/acute kidney injury. We will continue with IV fluid; however, slow down on bicarbonate drip as her pH and bicarbonate level substantially improved. The patient will be going for peripherally inserted central catheter line placement by Dr. Stewart Aden and after that, heparin drip will be started. We will continue to target euvolemia , euglycemia, normothermia and oxygen saturation more than 90%. We will continue with deep venous thrombosis and gastrointestinal prophylaxis. ccm time 40 min Shon Conteh MD cc: [id number] TT: 11/19/2016 09:44:15 Confirmation # [id number] Dictation # [id number] en MTDD
--- NOTE | 2016-11-19 10:01 | RAD ---
HISTORY: r/o ptx COMPARISON: 11/18/2016 FINDINGS: There is interval removal of the left IJV line. LUNGS: The lungs are clear. There are small calcified granulomas in the right mid lung. PLEURA: No significant pleural effusion identified, no pneumothorax apparent. CARDIOVASCULAR: Normal. OSSEOUS STRUCTURES: No significant abnormalities. VISUALIZED UPPER ABDOMEN: Normal. OTHER FINDINGS: None. IMPRESSION: Interval removal of left IJV line. No definite evidence of pneumothorax. No active pulmonary disease.
--- NOTE | 2016-11-19 10:02 | HP ---
CHIEF COMPLAINT AND HISTORY OF PRESENT ILLNESS: This is a 61-year-old female who [facility] because she was feeling weak. She says she was getting short of breath. She has a past medic al history of hypertension, protein C deficiency, on anticoagulation with Lovenox, anemia. The patie nt is drowsy. She says she has been having a cough. She is able to answer questions. She says she had been visited by the visiting nurse yesterday. The visiting nurse had called me and I returned he r phone call, left a message, but did not hear back from her. The patient denies any nausea, vomitin g. No fevers or chills. She denies any [id number] supplements, herbal preparations that she h as been using. She was found to have acute renal failure and had rhabdomyolysis. She did complain o f muscle pain in her shoulders. She was admitted to the ICU for management. She has poor IV access. She has been followed by Dr. Alcala for her healing wounds on her chest and her fingers that were amputated bilaterally fourth digit. The patient says she is feeling a bit better, but she still feel s drowsy. She has no headaches, no dizziness, no nausea. She has difficulty in walking. She lives alone. Her brother in [place] is her next of kin and she has designated him as her proxy joana lozoya maker. REVIEW OF SYMPTOMS: All others are within normal limits except what is mentioned. PAST MEDICAL HISTORY: 1. Status post amputation of bilateral fourth fingers. 2. Hypertension. 3. Chronic anemia. 4. Protein C deficiency. 5. Morbid obesity with a BMI . 6. Breast necrosis. 7. Gastric bypass. 8. Chronic back pain. 9. Dyslipidemia. ALLERGIES: PENICILLIN. HOME MEDICATIONS: Lovenox, Neurontin, Protonix, simvastatin, Diovan, Flonase, Lasix. PAST SURGICAL HISTORY: Hysterectomy and gastric bypass. FAMILY HISTORY: Father of cancer of unknown type at 50. Mother had breast cancer. The patient 's mother had a CVA and at 69. SOCIAL HISTORY: She denies smoking and drinking. She is not working. PHYSICAL EXAMINATION: VITAL SIGNS: Temperature is 98.1, pulse of 88, blood pressure is 121/64, respirations 16, O2 saturat ion 94%. Height is 5 feet 9 inches, weight is 202 pounds, BMI is 29.8. GENERAL: The patient is lying in bed, flat, and in no apparent distress. HEAD AND NECK EXAM: Atraumatic, normocephalic. Conjunctivae are pink. Throat clear and mouth with moist mucosa. Oropharynx benign. EYES: Extraocular movements are intact. PERRLA. NECK: Supple. No JVD, thyromegaly, or adenopathy. No bruits. HEART: S1 and S2 regular rate and rhythm. No murmurs, rubs, or gallops. LUNGS: Clear to auscultation bilaterally. No wheezing rales or rhonchi appreciated. No retractions on exam. ABDOMEN: Soft, nontender, nondistended. Bowel sounds are positive in all quadrants. No rebound. No hepatosplenomegaly. EXTREMITIES: She has fourth bilateral digits that have been amputated. No cyanosis, clubbing, or ed merna. NEUROLOGIC: No facial asymmetry, tongue is midline, no uvula deviation. Power is 5/5 in upper extre mity and 5/5 in lower extremity. Sensation is normal in upper extremity and lower extremity. PSYCHIATRIC: Awake, alert, oriented x 3. No anxiety or depression symptoms. Good insight. Normal affect. GENITOURINARY: No CVA tenderness VASCULAR: 2+ pulses in carotid and pedal pulses. SKIN: There are healed chronic wounds on the breasts bilaterally. No erythema or abnormal nodules n oted. SPINE: Normal curvature. LYMPHADENOPATHY: No anterior cervical or posterior cervical adenopathy. No inguinal adenopathy. LABORATORIES: White count of 9.7, hemoglobin 8.7, platelet count is 214. INR is 1.05. D-dimer is 3 .29. Chemistry shows a sodium 129, potassium is 3.0, creatinine is 4.6, repeat creatinine is 2.0. C K is 6889. This morning, it is 5175. Magnesium is 1.4. ABG done shows a pH of 7.08, pCO2 of 45, pO 2 of 95, anion gap was 19. Chest x-ray done shows no active disease. EKG shows sinus rhythm, QTc is 448, no ST-T changes. ASSESSMENT: 1. Acute kidney injury. 2. Rhabdomyolysis. 3. Hypomagnesemia. 4. Hyperphosphatemia. 5. Metabolic acidosis. 6. Dyslipidemia. 7. Hypertension. 8. Chronic back pain. 9. History of gastric bypass. 10. Poor intravenous access. 11. Protein C deficiency. 12. PENICILLIN ALLERGY. PLAN: The patient is critically ill. She has acute kidney injury. She had been on diuretic therapy . This may be causing the acute kidney injury along with the rhabdomyolysis. The patient was given IV fluids with bicarbonate. The patient has an echo that has been ordered. We will decrease the pat ient's IV fluids. She was getting 100 mL per hour. I will also get a urine tox. I will also get Sykes chris Paramonte to evaluate the patient for advanced directives. She will remain in the ICU, being criti chris ill. Ramses Huerta MD cc: [id number] TT: 11/19/2016 10:01:52 en
[2016-11-19] MEDS: Heparin25000 units/250ml 1/2NS 25,000 UNITS/250 ML BAG IV PRN ×2 (10:53→17:51)
[2016-11-19 11:51] LABS: VENOUS BLOOD GAS BASE EXCESS -2.7 mmol/L (0.0-2.0); VENOUS BLOOD PH 7.36 (7.32-7.43)
--- NOTE | 2016-11-19 12:45 | CP.PCM.CON ---
History of Present Illness - History of Present Illness History of Present Illness: Palliative consult requested by Dr Gee Huerta Reason: : Advance care planning HPI: the patient presented to ED with complaints of shortness of breath and fatigue for past several days. She was admitted with JOSEFINA and rhabdomyolysis. PMHx: CAD, HTN, HLD, asthma,protein C deficiency,cellulitis. Social History:Non smoker, no alcohol or drug misuse. Lives alone. Family History : Non contributory. Advance Care Planning: The patient has an Advance Directive. Review of Systems:As per HPI, all other systems unremarkable. Past Patient History - Infectious Disease Hx of Infectious Diseases: None - Tetanus Immunizations Tetanus Immunization: Unknown - Past Medical History & Family History Past Medical History?: Yes - Past Social History Smoking Status: Never Smoked - CARDIAC Hx Hypertension: Yes Hx Peripheral Edema: Yes - PULMONARY Hx Asthma: Yes - NEUROLOGICAL Hx Paralysis: No - HEENT Hx HEENT Problems: No - RENAL Hx Chronic Kidney Disease: No - ENDOCRINE/METABOLIC Hx Endocrine Disorders: No - HEMATOLOGICAL/ONCOLOGICAL Hx Blood Transfusions: Yes Hx Blood Transfusion Reaction: No - INTEGUMENTARY Hx Dermatological Problems: No - MUSCULOSKELETAL/RHEUMATOLOGICAL Hx Falls: Yes Hx Rhabdomyolysis: Yes - GASTROINTESTINAL Hx Gastrointestinal Disorders: No - GENITOURINARY/GYNECOLOGICAL Hx Genitourinary Disorders: Yes Hx Urinary Tract Infection: Yes - PSYCHIATRIC Hx Substance Use: No - SURGICAL HISTORY Hx Surgeries: Yes Hx Amputation: Yes (bilateral middle fingers) Hx Gastric Bypass Surgery: Yes Hx Hysterectomy: Yes - ANESTHESIA Hx Anesthesia Reactions: No Hx Malignant Hyperthermia: No Meds Allergies/Adverse Reactions: Allergies Allergy/AdvReac Type Severity Reaction Status Date / Time Penicillins Allergy ANGIOEDEMA/SHORTNESS Verified 11/18/16 13:49 OF BREATH - Medications Medications: Current Medications Sodium Bicarbonate 150 meq/ (Dextrose) 1,150 mls @ 100 mls/hr IV .[id number] [facility] Last Admin: 11/19/16 09:20 Dose: 100 mls/hr Heparin Sodium/Sodium Chloride (Heparin 04694 Units/250ml 1/2 Normal Saline) 25 ,000 units in 250 mls @ 10.995 mls/hr IV .[id number] PRN; Protocol; 12 UNITS/KG/HR PRN Reason: ADJUST RATE PER PROTOCOL Last Admin: 11/19/16 10:53 Dose: 12 units/kg/hr, 10.995 mls/hr Potassium Chloride (Potassium Chloride 20 Meq/100 Ml) 20 meq in 100 mls @ 50 mls/hr IVPB Q2H ALEXI Stop: 11/19/16 13:29 Last Admin: 11/19/16 12:02 Dose: 50 mls/hr Potassium Chloride (K-Dur 20 Meq Er Tab) 20 meq PO ONCE ONE Stop: 11/19/16 14:01 Physical Exam - Head Exam Head Exam: NORMAL INSPECTION - Eye Exam Eye Exam: Normal appearance, PERRL - ENT Exam ENT Exam: Mucous Membranes Moist - Neck Exam Neck exam: Positive for: Normal Inspection - Respiratory Exam Respiratory Exam: Decreased Breath Sounds, NORMAL BREATHING PATTERN - Cardiovascular Exam Cardiovascular Exam: REGULAR RHYTHM, +S1, +S2 - GI/Abdominal Exam GI & Abdominal Exam: Normal Bowel Sounds, Soft - Extremities Exam Extremities exam: Positive for: full ROM, pedal pulses present - Neurological Exam Neurological exam: Alert, Oriented x3 - Skin Skin Exam: Dry, Pallor - Additional Findings Additional findings: Palliative performance scale rating 60% Results - Vital Signs Recent Vital Signs: Last Vital Signs Temp 98.1 F 11/18/16 23:25 Pulse 98 H 11/19/16 11:00 Resp 16 11/18/16 23:25 BP 121/64 11/18/16 23:25 Pulse Ox 94 L 11/18/16 23:25 - Labs Result Diagrams: 11/19/16 06:45 11/19/16 06:45 Labs: Laboratory Results - last 24 hr 11/18/16 11/18/16 11/19/16 23:07 23:07 06:45 WBC 7.5 D RBC 3.25 L Hgb 9.2 L Hct 27.2 L MCV 83.7 MCH 28.3 MCHC 33.8 RDW 17.3 H Plt Count 214 MPV 10.5 Gran % 73.5 H Lymph % (Auto) 16.9 L [place] % (Auto) 7.7 H Eos % (Auto) 1.6 Baso % (Auto) 0.3 Gran # 5.48 Lymph # 1.3 [place] # 0.6 Eos # 0.1 Baso # 0.02 pO2 21 L VBG pH 7.24 L VBG pCO2 38.0 L VBG HCO3 16.3 L VBG Total CO2 17.5 L VBG O2 Sat (Calc) 35.1 L VBG Base Excess -10.3 L VBG Potassium 3.7 Sodium 135.0 Chloride 107.0 Glucose 90 Lactate 1.0 FiO2 21.0 Potassium Carbon Dioxide Anion Gap BUN Creatinine Est GFR ( Amer) Est GFR (Non-Af Amer) Random Glucose Calcium Phosphorus Magnesium Total Creatine Kinase 7289 H CK-MB (CK-2) 18.7 H CK-MB (CK-2) % 0.3 L Venous Blood Potassium 3.7 11/19/16 11/19/16 11/19/16 06:45 06:45 11:45 WBC RBC Hgb Hct MCV MCH MCHC RDW Plt Count MPV Gran % Lymph % (Auto) [place] % (Auto) Eos % (Auto) Baso % (Auto) Gran # Lymph # [place] # Eos # Baso # pO2 76 H VBG pH 7.36 VBG pCO2 40.0 VBG HCO3 22.6 VBG Total CO2 23.8 VBG O2 Sat (Calc) 97.2 H VBG Base Excess -2.7 L VBG Potassium 3.0 L Sodium 138 141.0 Chloride 105 110.0 H Glucose 107 H Lactate 0.8 FiO2 21.0 Potassium 3.0 L Carbon Dioxide 17 L Anion Gap 19 BUN 57 H Creatinine 2.0 H Est GFR ( Amer) 31 Est GFR (Non-Af Amer) 25 Random Glucose 92 Calcium 7.9 L Phosphorus 6.0 H Magnesium 1.4 L Total Creatine Kinase 5175 H CK-MB (CK-2) 13.7 H CK-MB (CK-2) % 0.3 L Venous Blood Potassium 3.0 L Assessment & Plan - Assessment and Plan (Free Text) Assessment: 61 year old female admitted with rhabdomyolsis, JOSEFINA, fatigue. Patient and I had a very brief conversation regarding her Advance Directive. She affirms that the document on the chart is valid and that her wishes remain the same. She is upset that so many people have asked her about the same thing , want's to know of she is "dying".I assured her that her condition was stable and explained that it was part of our process to review patient resuscitation wishes upon admission. Psychosocial support given> spiriyal support offered, declined. Advance care planning discussion with patient, 10 minutes Plan: Advance care planning
--- NOTE | 2016-11-19 14:45 | VASCULAR ---
PROCEDURE: Ultrasound and fluoroscopically placed left upper extremity PICC line. HISTORY: Osteomyelitis. Long-term IV antibiotics. PHYSICIAN(S): Stewart Aden MD. TECHNIQUE: The relative risks and indications of the procedure were explained to the patient and consent obtained. The patient was placed supine on the arteriogram table and the left arm prepped and draped in the usual sterile fashion. A tourniquet was applied to the left axilla. 1% Xylocaine was used to anesthetize the skin and soft tissues at the puncture site above the elbow. The left basilic vein was punctured under direct ultrasound guidance with a micropuncture set. A 0.018 guidewire was advanced centrally and used to measure the length to the SVC/RA junction. A 5 [place] dual lumen PICC line 45 cm long was advanced to the SVC/RA junction. The catheter was flushed and secured. The patient tolerated the procedure well. IMPRESSION: 1. Ultrasound and fluoroscopically placed left upper extremity PICC line. A 5 [place] dual lumen PICC line 45 cm long was advanced to the SVC/RA junction.
--- NOTE | 2016-11-19 15:47 | CARD ---
APPROVED REPORT EXAM: Two-dimensional and M-mode echocardiogram with Doppler and color Doppler. INDICATION Congestive Heart Failure 2D DIMENSIONS Left Atrium (2D)3.4 (1.6-4.0cm)IVSd1.0 (0.7-1.1cm) LVDd4.0 (3.9-5.9cm)PWd1.2 (0.7-1.1cm) LVDs2.6 (2.5-4.0cm)FS (%) 34.1 % LVEF (%)63.6 (>50%) M-Mode DIMENSIONS Aortic Root2.40 (2.2-3.7cm)Aortic Cusp Exc.1.60 (1.5-2.0cm) Aortic Valve AoV Peak Hqwxrapl763.0cm/Juliana Peak GR.16mmHg Mitral Valve MV E Tfpawvfd54.2cm/sMV A Ecpyqdzk27.7cm/sE/A ratio0.8 Tricuspid Valve TR Peak [id number]/sRAP [id number] Peak Gr.41mmHg [id number] LEFT VENTRICLE The left ventricle is normal size. There is normal left ventricular wall thickness. The left ventricular function is normal. The left ventricular ejection fraction is within the normal range. There is normal LV segmental wall motion. Transmitral Doppler flow pattern is Grade I-abnormal relaxation pattern. RIGHT VENTRICLE The right ventricle is normal size. There is normal right ventricular wall thickness. The right ventricular systolic function is normal. ATRIA The left atrium size is normal. The right atrium size is normal. AORTIC VALVE The aortic valve is not well visualized. No aortic regurgitation is present. There is no aortic valvular stenosis. MITRAL VALVE The mitral valve is normal in structure. There is no mitral valve regurgitation noted. TRICUSPID VALVE There is mild to moderate tricuspid regurgitation. There is mild to moderate pulmonary hypertension. GREAT VESSELS The aortic root is normal in size. The IVC is normal in size and collapses >50% with inspiration. <Conclusion> The left ventricle is normal size. There is normal left ventricular wall thickness. The left ventricular function is normal. The left ventricular ejection fraction is within the normal range. There is normal LV segmental wall motion. Transmitral Doppler flow pattern is Grade I-abnormal relaxation pattern. There is mild to moderate tricuspid regurgitation. There is mild to moderate pulmonary hypertension.
[2016-11-19 16:59] LABS: PH,URINE 6.5 (4.7-8.0); URINE BILIRUBIN NEGATIVE (NEGATIVE); URINE BLOOD TRACE-LYSED (NEGATIVE); URINE GLUCOSE (UA) NEGATIVE (NEGATIVE); URINE KETONE NEGATIVE (NEGATIVE); URINE LEUKOCYTE ESTERASE NEGATIVE Leu/uL (NEGATIVE); URINE PROTEIN NEGATIVE mg/dL (<30 mg/dL); URINE UROBILINOGEN 0.2 E.U./dL (<1 E.U./dL)
[2016-11-19 17:00] LABS: URINE APPEARANCE CLEAR (CLEAR); URINE COLOR LIGHT YELLOW (YELLOW)
[2016-11-19 17:18] LABS: URINE BACTERIA TRACE (NEG); URINE EPITHELIAL CELLS 0 - 2 /hpf (0-5); URINE RBC 0 - 2 /hpf (0-2); URINE WBC NEGATIVE /hpf (0-6)
[2016-11-19] MEDS: Sodium Chloride 0.9% 1,000 ML IV SCH (19:08)
[2016-11-20] MEDS: Heparin25000 units/250ml 1/2NS 25,000 UNITS/250 ML BAG IV PRN (03:54)
[2016-11-20 06:31] LABS: ADD MANUAL DIFF? NO
[2016-11-20] MEDS: Sodium Chloride 0.9% 1,000 ML IV SCH (06:34)
[2016-11-20 06:57] LABS: BASO # 0.02 K/mm3 (0.0-2.0); BASO % 0.4 % (0.0-3.0); EOS # 0.2 (0.0-0.7); GRAN # 2.94 (1.4-6.5); GRAN % 54.8 % (50.0-68.0); HEMATOCRIT 24.1 % (36.0-48.0); LYMPH # 1.7 (1.2-3.4); LYMPH % 32.3 % (22.0-35.0); MEAN CELL VOLUME 85.2 fL (80.0-105.0); MEAN CORPUSCULAR HEMOGLOBIN 28.3 pg (25.0-35.0); MEAN CORPUSCULAR HGB CONC 33.2 g/dl (31.0-37.0); MEAN PLATELET VOLUME 9.4 fl (7.0-11.0); MONO # 0.5 (0.1-0.6); MONO % 9.5 % (1.0-6.0); PLATELET COUNT 270 10^3/uL (120.0-450.0); RED CELL DISTRIBUTION WIDTH 17.5 % (11.5-14.5); WHITE BLOOD COUNT 5.4 10^3/ul (4.5-11.0)
[2016-11-20 07:15] LABS: BLOOD UREA NITROGEN 33 mg/dL (7-21); CALCIUM 7.7 mg/dL (8.4-10.5); CARBON DIOXIDE 25 mmol/L (21-33); CHLORIDE 111 mmol/L (98-107); GFR AFRICAN-AMERICAN > 60; GLUCOSE,RANDOM 80 mg/dL (70-110); MAGNESIUM 1.3 mg/dL (1.7-2.2); PHOSPHOROUS 2.9 mg/dL (2.5-4.5); SODIUM 143 mmol/L (132-148)
[2016-11-20 07:27] LABS: POTASSIUM 2.9 mmol/L (3.6-5.0)
[2016-11-20] MEDS ORDERED: Magnesium Sulfate 2 GM in Sodium Chloride 0.9% 100 ML IVPB ONE (07:40)
[2016-11-20] MEDS ORDERED: Potassium Chloride 20 mEq ER Tab PO ONE ×2 (07:41→14:00)
[2016-11-20] MEDS ORDERED: Magnesium Sulfate 2 GM in Sodium Chloride 0.9% 100 ML IV ONE (07:42)
--- NOTE | 2016-11-20 11:34 | PN ---
DATE: 11/20/2016 SUBJECTIVE: The patient has no complaints of any chest pain, no shortness of breath. She says she i s more awake and alert today. Her muscle aches are better. PHYSICAL EXAMINATION: VITAL SIGNS: Temperature is 97.9, pulse is 100, blood pressure 122/67, respiration is 20. GENERAL: The patient is comfortable, in no acute distress. HEENT: Anicteric sclerae. Moist mucosa. NECK: No JVD or adenopathy. CARDIAC: S1/S2. No murmurs. No rubs. Regular. RESPIRATORY: Clear to auscultation bilaterally. No wheezes, rales, or rhonchi. Good air entry. ABDOMEN: Bowel sounds are positive, soft, nontender, and nondistended. EXTREMITIES: No edema. Has 1+ pulses. LABS: White count is 5.4, hemoglobin is 8, creatinine is 0.6, her potassium is 2.9. Echo done shows LV is normal size, mild to moderate tricuspid regurg, EF is within normal limits. ASSESSMENT: 1. Acute kidney injury. 2. Rhabdomyolysis. 3. Hypokalemia. 4. Hypomagnesemia. 5. Hyperphosphatemia, improved. 6. Dyslipidemia. 7. Chronic back pain. 8. History of gastric bypass. 9. Poor intravenous access. 10. Protein C deficiency, on anticoagulation. 11. PENICILLIN ALLERGY. PLAN: The patient is currently comfortable. She is on heparin for anticoagulation. Now that her cr eatinine is back to normal, she may be able to go back on Lovenox. Given her hemoglobin is mildly lo w, will continue to follow closely. I will replace her magnesium and potassium. She is on a heart h ealthy diet. Her creatine kinase is improving. Ramses Huerta MD cc: [id number] TT: 11/20/2016 11:34:04 Confirmation # [id number] Dictation # [id number] [email or web address]
[2016-11-20] MEDS: Magnesium Oxide 400 mg Tab UD PO SCH ×2 (11:40→17:41)
[2016-11-20] MEDS: POLYETHYLENE GLYCOL 3350 17 GM/Dose PACKET PO SCH ×2 (11:41→17:41)
[2016-11-20] MEDS: oxyCODONE 30 mg Immediate Release Tab PO PRN ×2 (11:43→17:40)
[2016-11-20] MEDS ORDERED: Bacitracin 500 Units/gm Oint Foilpak UD ONE (14:32)
--- NOTE | 2016-11-21 00:40 | CP.PCM.CON ---
History of Present Illness - History of Present Illness History of Present Illness: Ms. Rainey is a 61 year old female admitted with weakness and shortness of breath. Home visiting nurse called Dr. Huerta about her not feeling good and was brought to ED. She was found to be in acute renal insufficiency and rhabdomyolysis. Renal functions have improved since admission. She had multiple similar episodes in past resulting in hospitalization. She has hypercoaguable state with MTHFR gene mutation, hetrozygous. Her protein C level was lower likely due to use of coumadin. It does not indicate protein C deficiency. Anti phospholipid antibody level was negative 0n 06/06/2016. She had fallen at home and had been found on floor multiple times in past one year. She is non compliant and does not come for office visits. She was last seen in office on 01/01/2016. She has refused placement to penitentiary during past hospitalizations and live alone at home. She was advised to be on lovenox twice a day when she was last discharged from the hospital. She states that she has been taking injections regularly. She had skin necrosis on breast that is healed. She is currently on heparin drip. Complaining of weakness, generalized. Echocardiogram is normal. NO RV strain. She had multiple episodes of TIA in past, none recent. Review of Systems - Constitutional Constitutional: Fatigue, Malaise, Weakness - EENT Eyes: absent: As Per HPI, Blind Spots, Blurred Vision, Change in Vision, Decreased Night Vision, Diplopia, Discharge, Dry Eye, Exophthalmos, Floaters, Irritation, Itchy Eyes, Loss of Peripheral Vision, Pain, Photophobia, Requires Corrective Lenses, Sees Flashes, Spots in Vision, Tunnel Vision, Other Visual Disturbances, Loss of Vision, Other - Breasts Additional comments: wounds healed - Cardiovascular Cardiovascular: absent: As Per HPI, Acrocyanosis, Chest Pain, Chest Pain at Rest , Chest Pain with Activity, Claudication, Diaphoresis, Dyspnea, Dyspnea on Exertion, Edema, Irregular Heart Rhythm, Pain Radiating to Arm/Neck/Jaw, Leg Edema, Leg Ulcers, Lightheadedness, Orthopnea, Palpitations, Paroxysmal Nocturnal Dyspnea, Pedal Edema, Radiating Pain, Rapid Heart Rate, Slow Heart Rate, Syncope, Other - Respiratory Respiratory: Dyspnea on Exertion - Gastrointestinal Gastrointestinal: absent: As Per HPI, Abdominal Pain, Belching, Bloating, Change in Bowel Habits, Change in Stool Character, Coffee Ground Emesis, Constipation, Cramping, Diarrhea, Dyspepsia, Dysphagia, Early Satiety, Excessive Flatus, Fecal Incontinence, Heartburn, Hematemesis, Hematochezia, Loose Stools, Melena, Nausea, Odynophagia, Temesmus, Vomiting, Other - Genitourinary Genitourinary: absent: As Per HPI, Change in Urinary Stream, Difficulty Urinating, Dysuria, Flank Pain, Hematuria, Pyuria, Nocturia, Urinary Incontinence, Urinary Frequency, Urinary Hesitance, Urinary Urgency, Voiding Freq/Small Amts, Freq UTI, Hx Renal/Bladder Calculi, Hx /Renal Surgery, Bladder Distension, Other - Musculoskeletal Musculoskeletal: Muscle Weakness, Myalgias - Integumentary Integumentary: absent: As Per HPI, Acne, Alopecia, Bleeding Lesions, Change in Hair, Change in Nails, Change in Pigmentation, Changing Lesions, Dry Skin, Erythema, Furuncle, Hirsutism, Lesions, New Lesions, Non-Healing Lesions, Photosensitivity, Pruritus, Rash, Skin Pain, Skin Ulcer, Sores, Striae, Swelling , Unusual Bruising, Wounds, Jaundice, Other - Neurological Neurological: As Per HPI - Hematologic/Lymphatic Hematologic: As Per HPI Past Patient History - Infectious Disease Hx of Infectious Diseases: None - Tetanus Immunizations Tetanus Immunization: Unknown - Past Medical History & Family History Past Medical History?: Yes Past Family History: Reviewed and not pertinent - Past Social History Smoking Status: Never Smoked - CARDIAC Hx Hypertension: Yes Hx Peripheral Edema: Yes - PULMONARY Hx Asthma: Yes - NEUROLOGICAL Hx Paralysis: No - HEENT Hx HEENT Problems: No - RENAL Hx Chronic Kidney Disease: No - ENDOCRINE/METABOLIC Hx Endocrine Disorders: No - HEMATOLOGICAL/ONCOLOGICAL Hx Blood Transfusions: Yes Hx Blood Transfusion Reaction: No - INTEGUMENTARY Hx Dermatological Problems: No - MUSCULOSKELETAL/RHEUMATOLOGICAL Hx Falls: Yes Hx Rhabdomyolysis: Yes - GASTROINTESTINAL Hx Gastrointestinal Disorders: No - GENITOURINARY/GYNECOLOGICAL Hx Genitourinary Disorders: Yes Hx Urinary Tract Infection: Yes - PSYCHIATRIC Hx Substance Use: No - SURGICAL HISTORY Hx Surgeries: Yes Hx Amputation: Yes (bilateral middle fingers) Hx Gastric Bypass Surgery: Yes Hx Hysterectomy: Yes - ANESTHESIA Hx Anesthesia Reactions: No Hx Malignant Hyperthermia: No Meds Allergies/Adverse Reactions: Allergies Allergy/AdvReac Type Severity Reaction Status Date / Time Penicillins Allergy ANGIOEDEMA/SHORTNESS Verified 11/18/16 13:49 OF BREATH - Medications Medications: Current Medications Heparin Sodium/Sodium Chloride (Heparin 26584 Units/250ml 1/2 Normal Saline) 25 ,000 units in 250 mls @ 10.995 mls/hr IV .[id number] PRN; Protocol; 12 UNITS/KG/HR PRN Reason: ADJUST RATE PER PROTOCOL Last Admin: 11/20/16 03:54 Dose: 12 units/kg/hr, 10.995 mls/hr Magnesium Oxide (Mag-Ox) 400 mg PO BID [facility] Last Admin: 11/20/16 17:41 Dose: 400 mg Oxycodone HCl (Oxycodone Immediate Release Tab) 30 mg PO Q6H PRN PRN Reason: Pain, severe (8-10) Last Admin: 11/20/16 17:40 Dose: 30 mg Polyethylene Glycol (Miralax) 17 gm PO BID [facility] Last Admin: 11/20/16 17:41 Dose: Not Given Physical Exam - Constitutional Appears: Chronically Ill - Head Exam Head Exam: ATRAUMATIC, NORMAL INSPECTION, NORMOCEPHALIC - Eye Exam Eye Exam: Normal appearance - ENT Exam ENT Exam: Mucous Membranes Moist, Normal Exam - Neck Exam Neck exam: Positive for: Normal Inspection - Respiratory Exam Respiratory Exam: Clear to Auscultation Bilateral, NORMAL BREATHING PATTERN - Cardiovascular Exam Cardiovascular Exam: REGULAR RHYTHM, +S1, +S2 - GI/Abdominal Exam GI & Abdominal Exam: Normal Bowel Sounds, Soft - Extremities Exam Extremities exam: Positive for: normal inspection - Back Exam Back exam: NORMAL INSPECTION - Neurological Exam Neurological exam: Alert, CN II-XII Intact, Oriented x3 - Skin Skin Exam: Normal Color, Warm Results - Vital Signs Recent Vital Signs: Last Vital Signs Temp 97.9 F 11/20/16 00:00 Pulse 93 H 11/20/16 23:00 Resp 17 11/20/16 20:30 BP 131/78 11/20/16 20:00 Pulse Ox 98 11/20/16 20:30 - Labs Result Diagrams: 11/20/16 05:45 11/20/16 05:45 Labs: Laboratory Results - last 24 hr 11/20/16 11/20/16 11/20/16 00:50 05:45 05:45 WBC 5.4 D RBC 2.83 L Hgb 8.0 L Hct 24.1 L MCV 85.2 MCH 28.3 MCHC 33.2 RDW 17.5 H Plt Count 270 MPV 9.4 Gran % 54.8 Lymph % (Auto) 32.3 Bureau % (Auto) 9.5 H Eos % (Auto) 3.0 Baso % (Auto) 0.4 Gran # 2.94 Lymph # 1.7 Bureau # 0.5 Eos # 0.2 Baso # 0.02 APTT 82.5 H* Sodium 143 Potassium 2.9 L* Chloride 111 H Carbon Dioxide 25 Anion Gap 10 BUN 33 H Creatinine 0.6 Est GFR ( Amer) > 60 Est GFR (Non-Af Amer) > 60 Random Glucose 80 Calcium 7.7 L Phosphorus 2.9 Magnesium 1.3 L Total Creatine Kinase CK-MB (CK-2) CK-MB (CK-2) % 11/20/16 11/20/16 11/20/16 05:45 12:15 18:39 WBC RBC Hgb Hct MCV MCH MCHC RDW Plt Count MPV Gran % Lymph % (Auto) Bureau % (Auto) Eos % (Auto) Baso % (Auto) Gran # Lymph # Bureau # Eos # Baso # APTT 63.8 H 53.9 H Sodium Potassium Chloride Carbon Dioxide Anion Gap BUN Creatinine Est GFR ( Amer) Est GFR (Non-Af Amer) Random Glucose Calcium Phosphorus Magnesium Total Creatine Kinase 1283 H CK-MB (CK-2) 3.0 CK-MB (CK-2) % Cancelled 11/20/16 18:39 WBC RBC Hgb Hct MCV MCH MCHC RDW Plt Count MPV Gran % Lymph % (Auto) Bureau % (Auto) Eos % (Auto) Baso % (Auto) Gran # Lymph # Bureau # Eos # Baso # APTT 48.2 H Sodium Potassium Chloride Carbon Dioxide Anion Gap BUN Creatinine Est GFR ( Amer) Est GFR (Non-Af Amer) Random Glucose Calcium Phosphorus Magnesium Total Creatine Kinase CK-MB (CK-2) CK-MB (CK-2) % Assessment & Plan - Assessment and Plan (Free Text) Assessment: 1. Hypercoaguable state. MTHFR gene mutation. protein C activity level in 2014 were checked was low at 38 %, likely due to coumadin. She is off coumadin now. Will check protein C level and activity. She is on heparin drip because due to acute renal insufficiency lovenox cannot be given. Will consider lovenox in 1-2 days. She is not a candidate for eliquis or Xarelto due to history of frequent falls at home and risk of bleeding, reversal agent is not available yet. She developed skin necrosis likely due to underlying hypercoaguable state. Non compliance is an issue for continuity of care. 2. Anemia : iron deficiency. She has history of gatric bypass surgery, it might lead to iron absorption defect. She gets IV iron during hospitalization. her baseline hemoglobin is around 8.0 gm/dl. Chronic /acute renal insufficiency is also contributing to anemia. 3. ARF/rhabdo : improving. currently on IV fluids. 4. Morbid obesity : s/p gastric bypass Thank you Dr. Huerta for allowing us to participate in her care. - Date & Time Date: 11/20/16 Time: 09:00
[2016-11-21] MEDS: Heparin25000 units/250ml 1/2NS 25,000 UNITS/250 ML BAG IV PRN (02:46)
[2016-11-21] MEDS: oxyCODONE 30 mg Immediate Release Tab PO PRN ×4 (02:50→21:38)
[2016-11-21 06:48] LABS: ADD MANUAL DIFF? NO
[2016-11-21 07:18] LABS: BASO # 0.03 K/mm3 (0.0-2.0); BASO % 0.6 % (0.0-3.0); EOS # 0.2 (0.0-0.7); EOS % 3.2 % (1.5-5.0); GRAN # 2.25 (1.4-6.5); GRAN % 42.4 % (50.0-68.0); HEMATOCRIT 24.5 % (36.0-48.0); LYMPH # 2.3 (1.2-3.4); LYMPH % 42.7 % (22.0-35.0); MEAN CELL VOLUME 86.3 fL (80.0-105.0); MEAN CORPUSCULAR HEMOGLOBIN 27.1 pg (25.0-35.0); MEAN CORPUSCULAR HGB CONC 31.4 g/dl (31.0-37.0); MEAN PLATELET VOLUME 9.2 fl (7.0-11.0); MONO # 0.6 (0.1-0.6); MONO % 11.1 % (1.0-6.0); PLATELET COUNT 289 10^3/uL (120.0-450.0); RED CELL DISTRIBUTION WIDTH 17.5 % (11.5-14.5); WHITE BLOOD COUNT 5.3 10^3/ul (4.5-11.0)
[2016-11-21 07:19] LABS: BLOOD UREA NITROGEN 16 mg/dL (7-21); CALCIUM 8.3 mg/dL (8.4-10.5); CARBON DIOXIDE 25 mmol/L (21-33); CHLORIDE 116 mmol/L (98-107); GFR AFRICAN-AMERICAN > 60; GLUCOSE,RANDOM 80 mg/dL (70-110); POTASSIUM 4.1 mmol/L (3.6-5.0); SODIUM 145 mmol/L (132-148)
--- NOTE | 2016-11-21 08:42 | CP.PCM.PN ---
Subjective - Date & Time of Evaluation Date of Evaluation: 11/21/16 Time of Evaluation: 08:25 - Subjective Subjective: Patient is anemic,has orders for blood transfusion,needs consent for the same. Explained to pt about her anemic state,about the need for blood transfusion and it's risks and benefits. Patient stated she understood what she was told,then signed consent for the same. Objective - Vital Signs/Intake and Output Vital Signs (last 24 hours): Temp Pulse Resp BP Pulse Ox 98.7 F 91 H 15 130/70 98 11/21/16 00:00 11/21/16 06:00 11/21/16 06:00 11/21/16 04:00 11/21/16 06:00 Intake and Output: 11/21/16 11/21/16 06:59 18:59 Intake Total 1600 Output Total 650 Balance 950 - Medications Medications: Current Medications Heparin Sodium/Sodium Chloride (Heparin 09196 Units/250ml 1/2 Normal Saline) 25 ,000 units in 250 mls @ 10.995 mls/hr IV .[id number] PRN; Protocol; 12 UNITS/KG/HR PRN Reason: ADJUST RATE PER PROTOCOL Last Admin: 11/21/16 02:46 Dose: 12 units/kg/hr, 10.995 mls/hr Magnesium Oxide (Mag-Ox) 400 mg PO BID [facility] Last Admin: 11/20/16 17:41 Dose: 400 mg Oxycodone HCl (Oxycodone Immediate Release Tab) 30 mg PO Q6H PRN PRN Reason: Pain, severe (8-10) Last Admin: 11/21/16 02:50 Dose: 30 mg Polyethylene Glycol (Miralax) 17 gm PO BID [facility] Last Admin: 11/20/16 17:41 Dose: Not Given - Labs Labs: 11/21/16 06:00 11/21/16 06:00 PT 11.3 Seconds (9.9-11.8) 11/18/16 14:03 INR 1.05 (0.93-1.08) 11/18/16 14:03 APTT 57.4 Seconds (23.7-30.8) H 11/21/16 06:00
[2016-11-21] MEDS: POLYETHYLENE GLYCOL 3350 17 GM/Dose PACKET PO SCH ×2 (09:28→18:03)
[2016-11-21] MEDS: Magnesium Oxide 400 mg Tab UD PO SCH (10:04)
--- NOTE | 2016-11-21 10:12 | PN ---
DATE: 11/21/2016 SUBJECTIVE: The patient has no complaints of any chest pain or shortness of breath, no headaches or dizziness. PHYSICAL EXAMINATION: VITAL SIGNS: Temperature is 98.7, pulse of 91, blood pressure is 130/70, respirations 15. GENERAL: The patient is comfortable, in no acute distress. HEENT: Anicteric sclerae. Moist mucosa. NECK: No JVD or adenopathy. CARDIAC: S1/S2. No murmurs. No rubs. Regular. RESPIRATORY: Clear to auscultation bilaterally. No wheezes, rales, or rhonchi. Good air entry. ABDOMEN: Bowel sounds are positive, soft, nontender, and nondistended. EXTREMITIES: No edema. Has 1+ pulses. ASSESSMENT: 1. Acute kidney injury secondary to rhabdomyolysis, resolved. 2. Hypokalemia. 3. Hypomagnesemia. 4. Hyperphosphatemia, improved. 5. Dyslipidemia. 6. Chronic back pain. 7. PENICILLIN ALLERGY. 8. Anemia, multifactorial. 9. Protein C deficiency, on anticoagulation. 10. Poor IV access. PLAN: The patient is currently comfortable. She is waiting to the ICU. The patient is on heparin, is on magnesium. The patient's hemoglobin is low at 7.7. She is on oxycodone for pain. She is on a heart healthy diet. Ramses Huerta MD cc: [id number] TT: 11/21/2016 09:23:18 Confirmation # [id number] Dictation # [id number] tn
[2016-11-21] MEDS: Magnesium Oxide 400 mg Tab UD ONE (18:03)
[2016-11-21] MEDS ORDERED: Bacitracin 500 Units/gm Oint Foilpak UD ONE (18:10)
[2016-11-21] MEDS ORDERED: Bacitracin 500 Units/gm Oint Foilpak UD TOP STA (18:22)
--- NOTE | 2016-11-22 00:56 | CP.PCM.CON ---
History of Present Illness - History of Present Illness History of Present Illness: General Surgery consult note for Dr. Alcala Consulted for: skin wound right thigh Patient is a 61F with history of coumadin skin necrosis, HTN, HLD, and protein C deficiency with PSH of gastric bypass, hysterectomy, breast skin debridement and BL 4th finger amputation who [place] [facility] [place] for rhabdomyolysis. Patient is clinically improving. Surgery was consulted for a skin wound in the posterior right thigh. Patient states that the wound started as a blister that popped, with serous drainage, but denies foul smells or discharge, fevers or chills, or any other skin lesions. PMH: Coumadin skin necrosis, HTN, HLD, Protein C defiiciency PSH: Gastric bypass, Hysterectomy, breast debridement, BL 4th finger amputation ALL: PCN Review of Systems - Review of Systems All systems: reviewed and no additional remarkable complaints except (as per HPI ) - Constitutional Constitutional: absent: Chills, Fever - Breasts Breasts: absent: Mass, Skin Changes, Swelling - Cardiovascular Cardiovascular: absent: Chest Pain, Chest Pain at Rest, Dyspnea - Respiratory Respiratory: absent: Cough, Dyspnea, Wheezing - Gastrointestinal Gastrointestinal: absent: Abdominal Pain, Nausea, Vomiting - Genitourinary Genitourinary: absent: Difficulty Urinating, Dysuria - Integumentary Integumentary: Wounds. absent: Bleeding Lesions, Erythema - Neurological Neurological: Abnormal Gait, Weakness - Endocrine Endocrine: Fatigue Past Patient History - Infectious Disease Hx of Infectious Diseases: None - Tetanus Immunizations Tetanus Immunization: Unknown - Past Medical History & Family History Past Medical History?: Yes Past Family History: Reviewed and not pertinent - Past Social History Smoking Status: Never Smoked - CARDIAC Hx Hypertension: Yes Hx Peripheral Edema: Yes - PULMONARY Hx Asthma: Yes - NEUROLOGICAL Hx Paralysis: No - HEENT Hx HEENT Problems: No - RENAL Hx Chronic Kidney Disease: No - ENDOCRINE/METABOLIC Hx Endocrine Disorders: No - HEMATOLOGICAL/ONCOLOGICAL Hx Blood Transfusions: Yes Hx Blood Transfusion Reaction: No - INTEGUMENTARY Hx Dermatological Problems: No - MUSCULOSKELETAL/RHEUMATOLOGICAL Hx Falls: Yes Hx Rhabdomyolysis: Yes - GASTROINTESTINAL Hx Gastrointestinal Disorders: No - GENITOURINARY/GYNECOLOGICAL Hx Genitourinary Disorders: Yes Hx Urinary Tract Infection: Yes - PSYCHIATRIC Hx Substance Use: No - SURGICAL HISTORY Hx Surgeries: Yes Hx Amputation: Yes (bilateral middle fingers) Hx Gastric Bypass Surgery: Yes Hx Hysterectomy: Yes - ANESTHESIA Hx Anesthesia Reactions: No Hx Malignant Hyperthermia: No Meds Allergies/Adverse Reactions: Allergies Allergy/AdvReac Type Severity Reaction Status Date / Time Penicillins Allergy ANGIOEDEMA/SHORTNESS Verified 11/18/16 13:49 OF BREATH - Medications Medications: Current Medications Alprazolam (Xanax) 0.25 mg PO Q6H PRN; Protocol PRN Reason: Anxiety Stop: 11/28/16 17:31 Last Admin: 11/21/16 18:01 Dose: 0.25 mg Atorvastatin Calcium (Lipitor) 10 mg PO HS [facility] Last Admin: 11/21/16 23:44 Dose: 10 mg Gabapentin (Neurontin) 300 mg PO TID [facility] PRN Reason: Protocol Heparin Sodium/Sodium Chloride (Heparin 42108 Units/250ml 1/2 Normal Saline) 25 ,000 units in 250 mls @ 10.995 mls/hr IV .[id number] PRN; Protocol; 12 UNITS/KG/HR PRN Reason: ADJUST RATE PER PROTOCOL Last Admin: 11/21/16 02:46 Dose: 12 units/kg/hr, 10.995 mls/hr Losartan Potassium (Cozaar) 50 mg PO 1800 [facility] Last Admin: 11/21/16 17:59 Dose: 50 mg Magnesium Oxide (Mag-Ox) 400 mg PO BID [facility] Last Admin: 11/21/16 10:04 Dose: 400 mg Metoprolol Tartrate (Lopressor) 25 mg PO BID [facility] Last Admin: 11/21/16 18:01 Dose: 25 mg Ondansetron HCl (Zofran Inj) 4 mg IVP Q6H PRN PRN Reason: Nausea/Vomiting Oxycodone HCl (Oxycodone Immediate Release Tab) 30 mg PO Q6H PRN PRN Reason: Pain, severe (8-10) Last Admin: 11/21/16 21:38 Dose: 30 mg Polyethylene Glycol (Miralax) 17 gm PO BID [facility] Last Admin: 11/21/16 18:03 Dose: Not Given Physical Exam - Constitutional Appears: Well, Non-toxic, No Acute Distress - Head Exam Head Exam: ATRAUMATIC, NORMOCEPHALIC - Eye Exam Eye Exam: Normal appearance. absent: Conjunctival injection, Scleral icterus - ENT Exam ENT Exam: Mucous Membranes Moist, Normal Oropharynx - Respiratory Exam Respiratory Exam: NORMAL BREATHING PATTERN. absent: Accessory Muscle Use, Respiratory Distress - Cardiovascular Exam Cardiovascular Exam: RRR - GI/Abdominal Exam GI & Abdominal Exam: Soft. absent: Distended, Tenderness - Extremities Exam Extremities exam: Positive for: pedal pulses present. Negative for: calf tenderness, pedal edema Additional comments: [id number] superficial skin woundon posterior right thigh without surrounding erythema, bleeding, or foul smelling dishcarge. BL 4th digit amputated at the DIP - Back Exam Back exam: NORMAL INSPECTION. absent: CVA tenderness (L), CVA tenderness (R), rash noted, vertebral tenderness - Neurological Exam Neurological exam: Alert, Oriented x3 - Psychiatric Exam Psychiatric exam: Normal Affect, Normal Mood - Skin Skin Exam: Dry, Normal Color, Warm Additional comments: [id number] superficial skin woundon posterior right thigh without surrounding erythem, bleeding, or foul smelling dishcarge Results - Vital Signs Recent Vital Signs: Last Vital Signs Temp 98.4 F 11/21/16 14:13 Pulse 61 11/21/16 22:00 Resp 18 11/21/16 21:15 BP 123/87 11/21/16 20:15 Pulse Ox 100 11/21/16 21:15 - Labs Result Diagrams: 11/21/16 06:00 11/21/16 06:00 Labs: Laboratory Results - last 24 hr 11/21/16 11/21/16 11/21/16 06:00 06:00 06:00 WBC 5.3 RBC 2.84 L Hgb 7.7 L Hct 24.5 L MCV 86.3 MCH 27.1 MCHC 31.4 RDW 17.5 H Plt Count 289 MPV 9.2 Gran % 42.4 L Lymph % (Auto) 42.7 H Person % (Auto) 11.1 H Eos % (Auto) 3.2 Baso % (Auto) 0.6 Gran # 2.25 Lymph # 2.3 Person # 0.6 Eos # 0.2 Baso # 0.03 APTT 57.4 H Sodium 145 Potassium 4.1 Chloride 116 H Carbon Dioxide 25 Anion Gap 8 L BUN 16 Creatinine 0.5 Est GFR ( Amer) > 60 Est GFR (Non-Af Amer) > 60 Random Glucose 80 Calcium 8.3 L Total Creatine Kinase CK-MB (CK-2) CK-MB (CK-2) % Blood Type Antibody Screen Crossmatch BBK History Checked 11/21/16 11/21/16 09:10 09:10 WBC RBC Hgb Hct MCV MCH MCHC RDW Plt Count MPV Gran % Lymph % (Auto) Person % (Auto) Eos % (Auto) Baso % (Auto) Gran # Lymph # Person # Eos # Baso # APTT Sodium Potassium Chloride Carbon Dioxide Anion Gap BUN Creatinine Est GFR ( Amer) Est GFR (Non-Af Amer) Random Glucose Calcium Total Creatine Kinase 870 H CK-MB (CK-2) 1.9 CK-MB (CK-2) % Cancelled Blood Type A POSITIVE Antibody Screen Negative Crossmatch See Detail BBK History Checked Patient has bt Assessment & Plan - Assessment and Plan (Free Text) Assessment: 61F with PMH of coumadin skin necrosis with superficial wound in the skin of the posterior right thigh Wound superficial with healthy granulation tissue observed Plan: -wound care consult -optifoam and medihoney daily dressing changes -encourage ambulation, PT, and keeping weight off the area Thank you for the pleasure of this consult Discussed with Dr. Fredrick Dotson, PGY1
[2016-11-22] MEDS: oxyCODONE 30 mg Immediate Release Tab PO PRN ×3 (05:20→18:34)
[2016-11-22] MEDS: Heparin25000 units/250ml 1/2NS 25,000 UNITS/250 ML BAG IV PRN (05:28)
[2016-11-22 09:04] LABS: BLOOD UREA NITROGEN 10 mg/dL (7-21); CALCIUM 8.9 mg/dL (8.4-10.5); CARBON DIOXIDE 24 mmol/L (21-33); CHLORIDE 111 mmol/L (95-110); GFR AFRICAN-AMERICAN > 60; GLUCOSE,RANDOM 77 mg/dL (70-110); POTASSIUM 4.4 mmol/L (3.6-5.0); SODIUM 142 mmol/L (132-148)
[2016-11-22 09:16] LABS: INR 1.06 (0.93-1.08); PARTIAL THROMBOPLASTIN TIME 50.4 Seconds (23.7-30.8)
[2016-11-22] MEDS: Magnesium Oxide 400 mg Tab UD ONE (10:16)
[2016-11-22] MEDS: POLYETHYLENE GLYCOL 3350 17 GM/Dose PACKET PO SCH ×2 (10:17→18:30)
[2016-11-22] MEDS: Magnesium Oxide 400 mg Tab UD PO SCH ×2 (10:18→18:32)
[2016-11-22] MEDS ORDERED: Enoxaparin 100 mg Syringe SC SCH (15:00)
[2016-11-22 21:00] LABS: HEMATOCRIT 27.4 % (36.0-48.0); MEAN CELL VOLUME 87.3 fL (80.0-105.0); MEAN CORPUSCULAR HGB CONC 32.1 g/dl (31.0-37.0); MEAN PLATELET VOLUME 9.3 fl (7.0-11.0); RED CELL DISTRIBUTION WIDTH 18.4 % (11.5-14.5); WHITE BLOOD COUNT 5.2 10^3/ul (4.5-11.0)
--- NOTE | 2016-11-23 00:07 | CP.PCM.PN ---
Subjective - Date & Time of Evaluation Date of Evaluation: 11/21/16 Time of Evaluation: 09:00 - Subjective Subjective: GC improved. Admitted with rhabdomyolysis. renal functions improved. Hb declined to 7.7 gm/dl. Oral intake good. complaining of fatigue. No chest pain. Objective - Vital Signs/Intake and Output Vital Signs (last 24 hours): Temp Pulse Resp BP Pulse Ox 98.3 F 75 18 151/78 H 100 11/22/16 17:35 11/22/16 22:00 11/22/16 17:35 11/22/16 17:35 11/22/16 05:44 Intake and Output: 11/22/16 11/23/16 18:59 06:59 Intake Total 132 1172 Output Total 500 Balance 132 672 - Medications Medications: Current Medications Alprazolam (Xanax) 0.25 mg PO Q6H PRN; Protocol PRN Reason: Anxiety Stop: 11/28/16 17:31 Last Admin: 11/21/16 18:01 Dose: 0.25 mg Atorvastatin Calcium (Lipitor) 10 mg PO HS [facility] Last Admin: 11/22/16 21:43 Dose: 10 mg Enoxaparin Sodium (Lovenox) 100 mg SC Q12H [facility]LEX[facility] PRN Reason: Protocol Last Admin: 11/22/16 15:55 Dose: 100 mg Gabapentin (Neurontin) 300 mg PO TID [facility] PRN Reason: Protocol Last Admin: 11/22/16 19:29 Dose: 300 mg Losartan Potassium (Cozaar) 50 mg PO 1800 [facility] Last Admin: 11/22/16 18:31 Dose: 50 mg Magnesium Oxide (Mag-Ox) 400 mg PO BID [facility] Last Admin: 11/22/16 18:32 Dose: 400 mg Metoprolol Tartrate (Lopressor) 25 mg PO BID [facility] Last Admin: 11/22/16 18:31 Dose: 25 mg Ondansetron HCl (Zofran Inj) 4 mg IVP Q6H PRN PRN Reason: Nausea/Vomiting Oxycodone HCl (Oxycodone Immediate Release Tab) 30 mg PO Q6H PRN PRN Reason: Pain, severe (8-10) Last Admin: 11/22/16 18:34 Dose: 30 mg Polyethylene Glycol (Miralax) 17 gm PO BID [facility] Last Admin: 11/22/16 18:30 Dose: Not Given - Labs Labs: 11/22/16 20:25 11/22/16 08:38 PT 11.5 Seconds (9.9-11.8) 11/22/16 08:30 INR 1.06 (0.93-1.08) 11/22/16 08:30 APTT 50.4 Seconds (23.7-30.8) H 11/22/16 08:30 - Constitutional Appears: Chronically Ill - Head Exam Head Exam: ATRAUMATIC, NORMAL INSPECTION, NORMOCEPHALIC - Eye Exam Eye Exam: Normal appearance Pupil Exam: NORMAL ACCOMODATION - ENT Exam ENT Exam: Mucous Membranes Moist, Normal Exam - Neck Exam Neck Exam: Normal Inspection - Respiratory Exam Respiratory Exam: Clear to Ausculation Bilateral, NORMAL BREATHING PATTERN - GI/Abdominal Exam GI & Abdominal Exam: Soft, Normal Bowel Sounds - Neurological Exam Neurological Exam: Alert, Awake, Oriented x3 - Psychiatric Exam Psychiatric exam: Normal Affect - Skin Skin Exam: Normal Color, Warm Additional comments: skin breakdown right thigh Assessment and Plan - Assessment and Plan (Free Text) Plan: 1. Hypercoaguable state. 2. iron deficiency 3. Chronic anemia 4. acute renal failure 5. s/p gastric bypass surgery 6. Morbid obesity Plan : currently on heaprin drip. renal functions normal now. Will continue heparin dripnfor another 24 hours, then switch to lovenox. Anemia : Hb/Hct declined, 1 unit of PRBC given today. Rhabdomyolysis improved. Contiue IVFs. PT beside for ambulation. Thank you Dr. Huerta for allowing us to participate in her care.
[2016-11-23] MEDS: oxyCODONE 30 mg Immediate Release Tab PO PRN ×4 (01:05→20:00)
[2016-11-23] MEDS: Enoxaparin 100 mg Syringe SC SCH ×2 (05:53→17:21)
--- NOTE | 2016-11-23 06:24 | PN ---
DATE: 11/22/2016 SUBJECTIVE: The patient is a 61-year-old female admitted with weakness and shortness of breath. She had rhabdomyolysis and acute renal failure. She was admitted to ICU. She is transferred to regular floor today. She is complaining of feeling better now. She has new superficial skin wound on the right thigh. Surgery consultation with Dr. Alcala requested. Wound care consultation is called for superficial wound. She has hypercoagulable state. Had multiple TIAs in the past. No complaints now. She received 1 unit of PRBC transfusion for low hemoglobin. She has a history of gastric bypass surgery, which can lead to iron absorption defect. She is noncompliant and does not seek medical care apart from hospital admissions. REVIEW OF SYSTEMS: As per HPI. Rest of 12-point review of systems reviewed and negative. PHYSICAL EXAMINATION: GENERAL: Comfortable in bed, in no acute distress. VITAL SIGNS: Stable. Temperature 98.6, heart rate is 85 per minute, blood pressure 151/78, respiratory rate 18 per minute, oxygen saturation 100% room air. HEENT: Normal. NECK: No lymphadenopathy. CHEST: Air entry present, equal bilateral. No added sound. CARDIOVASCULAR: S1, S2 normal. No murmur, no gallop. ABDOMEN: Soft, nontender, no hepatosplenomegaly. EXTREMITIES: No edema. Skin breakdown on the right thigh, superficial granulation tissue present. CENTRAL NERVOUS SYSTEM: Alert, oriented x 3. No focal sensorimotor deficit. LABORATORY DATA: White count 5.2, hemoglobin 8.8, hematocrit 27.4, platelet count 277. Sodium 142, potassium 4.4, creatinine 0.5. Creatine kinase 870, previous 2500. MEDICATIONS: Xanax 0.25 mg q.6 hours p.r.n., Lipitor 10 mg at bedtime, Lovenox 100 mg subQ q.12, Neurontin 300 mg p.o. t.i.d., Cozaar 50 mg daily, mag oxide 400 mg b.i.d., Lopressor 25 mg p.o. b.i.d., Zofran 4 mg IV q.6 hours p.r.n., oxycodone 30 mg q.6 hours p.r.n., MiraLax 17 grams p.o. b.i.d. ASSESSMENT: 1. Hypercoagulable state. 2. Rhabdomyolysis. 3. Acute renal failure. 4. Chronic anemia. 5. Iron deficiency. 6. Status post gastric bypass surgery. 7. Superficial wound on the right thigh. PLAN: She is currently comfortable. She is currently on heparin drip, heparin drip to be discontinued. Lovenox started, 100 mg twice a day. Renal functions have resolved to normal now. . She has chronic anemia, she gets blood transfusion off and on when hemoglobin declines below 8 g/dL. She likely has iron absorption defect secondary to gastric bypass surgery. She needs continuation of parenteral iron to replete the body iron stores. chronic kidney disease also contributing to anemia. She is noncompliant, does not come for office visits. Most of her care is given by home care nurses coordinated by Dr. Huerta. We will continue Cozaar 50 mg daily, metoprolol 25 mg p.o. b.i.d. We will continue Zofran 4 mg IV q.6 hours p.r.n., Percocet p.r.n. for pain, Lipitor 10 mg daily. Consultation with Dr. Alcala reviewed. CONDITION: Stable. Sylvia Zendejas MD cc: [id number] TT: 11/23/2016 06:23:41 Confirmation # [id number] Dictation # [id number] sn MTDD
[2016-11-23] MEDS: POLYETHYLENE GLYCOL 3350 17 GM/Dose PACKET PO SCH ×2 (09:40→17:44)
[2016-11-23] MEDS: Magnesium Oxide 400 mg Tab UD PO SCH ×2 (09:43→17:20)
--- NOTE | 2016-11-23 15:47 | PN ---
DATE: 11/23/2016 SUBJECTIVE: She is comfortable in bed, in no acute distress. She is currently on Lovenox. Heparin drip was discontinued yesterday. Her rhabdomyolysis is resolving. Renal functions returned to normal. No events overnight. She is status post 1 unit of blood transfusion. She has iron deficiency anemia, a history of gastric bypass surgery and likely has iron absorption defect. She has hypercoagulable state. REVIEW OF SYSTEMS: As per HPI. The rest of 12-point review of systems reviewed and negative. PHYSICAL EXAMINATION: GENERAL: Comfortable in bed, in no acute distress. VITAL SIGNS: Stable. Temperature 98.5, heart rate is 80 per minute, blood pressure 130/70, respiratory rate 15 per minute. Oxygen saturation is 98% on room air. HEENT: Normal. NECK: No lymphadenopathy. CHEST: Air entry present, equal bilateral. No added sound. CARDIOVASCULAR: S1, S2 normal. No murmur, no gallop. ABDOMEN: Soft, nontender, no hepatosplenomegaly. EXTREMITIES: No edema. CENTRAL NERVOUS SYSTEM: Alert, oriented x 3. No focal sensory or motor deficit. LYMPHADENOPATHY: None. LABORATORY DATA: White count 5.2, hemoglobin 8.8, hematocrit 27.4, platelet count 227. Sodium 142, potassium 4.4, chloride 101, creatinine 0.5. Creatinine kinase is 890. MEDICATIONS: Xanax 0.25 mg p.o. q.6 hours p.r.n., Lipitor 10 mg at bedtime, Lovenox 100 mg q.12, Neurontin 100 mg p.o. t.i.d., Cozaar 50 mg p.o. daily, mag oxide 400 mg p.o. b.i.d., Lopressor 25 mg p.o. b.i.d., Zofran 4 mg IV q.6 hours , oxycodone p.r.n., MiraLax 17 grams p.o. b.i.d. ASSESSMENT: 1. Rhabdomyolysis. 2. Acute renal failure. 3. Hypercoagulable state. 4. Chronic anemia. 5. Iron deficiency. 6. Status post gastric bypass surgery. PLAN: Currently, she is on Lovenox 100 mg subQ q.12; will continue the same. Continue Xanax 0.25 mg p.o. q.6 hours. Continue Lipitor 10 mg daily, Cozaar 50 mg daily, Lopressor 25 mg p.o. b.i.d., Zofran 4 mg q.6 hours p.r.n. for nausea and MiraLax 17 grams p.o. b.i.d.; continue that. Hemoglobin and hematocrit are stable, 8.8 g/dL; white count normal, platelet count 227. Renal function improved. Creatinine normal now at 0.5. Creatinine kinase is decreasing at 70. She has rhabdomyolysis, is improving. Bedside physical therapy. She discussed as to why she has these episodes of rhabdomyolyis for past one year. Etiology is uncertaion. I advised her to maintain adequate hydration. Also discussed with her compliance issues. She does not follow up in office upon discharge from hospital. She told me that she has home care services at home so she believes she does not have to follow up in office with different specialists. 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 She demonstrated understanding the discussion well. Will continue to follow. Sylvia Zendejas MD cc: [id number] TT: 11/23/2016 15:46:01 Confirmation # [id number] Dictation # [id number] lupis SUAREZD
--- NOTE | 2016-11-23 21:45 | CP.PCM.PN ---
Subjective - Date & Time of Evaluation Date of Evaluation: 11/23/16 Time of Evaluation: 21:54 - Subjective Subjective: Patient was seen at bedside for sinus pain, nose pain. States that she has sinus problems. Has little headache and pain at base of nose. Also feels stuffy in the nose. Has no other complaints. VSS 151/89 61 year old woman complains of sinus pain, nose pain, head ache. Has no other complaints now. ROS:Negative except as mentioned above. She was admitted with sob, fatigue,rhabdomyolysis, JOSEFINA,hypercoaguable status. Has PMH of PE,morbid obesity, asthma CAD, HTN, HLD, hystrectomy, tonisllectomy, gastric bypass, breast debridement, BL 4th finger amuputation, protein c deficiency, cellulitis,anemia, chronic back pain. Objective - Vital Signs/Intake and Output Vital Signs (last 24 hours): Temp Pulse Resp BP Pulse Ox 98 F 78 18 160/100 H 98 11/23/16 17:30 11/23/16 17:48 11/23/16 17:30 11/23/16 17:30 11/23/16 17:30 Intake and Output: 11/23/16 11/24/16 18:59 06:59 Intake Total 500 Output Total 400 Balance 100 - Medications Medications: Current Medications Alprazolam (Xanax) 0.25 mg PO Q6H PRN; Protocol PRN Reason: Anxiety Stop: 11/28/16 17:31 Last Admin: 11/21/16 18:01 Dose: 0.25 mg Atorvastatin Calcium (Lipitor) 10 mg PO HS [facility] Last Admin: 11/23/16 21:38 Dose: 10 mg Enoxaparin Sodium (Lovenox) 100 mg SC Q12H ALEXI PRN Reason: Protocol Last Admin: 11/23/16 17:21 Dose: 100 mg Gabapentin (Neurontin) 300 mg PO TID ALEXI PRN Reason: Protocol Last Admin: 11/23/16 17:20 Dose: 300 mg Losartan Potassium (Cozaar) 50 mg PO 1800 [facility] Last Admin: 11/23/16 17:20 Dose: 50 mg Magnesium Oxide (Mag-Ox) 400 mg PO BID [facility] Last Admin: 11/23/16 17:20 Dose: 400 mg Metoprolol Tartrate (Lopressor) 25 mg PO BID [facility] Last Admin: 11/23/16 17:20 Dose: 25 mg Ondansetron HCl (Zofran Inj) 4 mg IVP Q6H PRN PRN Reason: Nausea/Vomiting Last Admin: 11/23/16 12:55 Dose: 4 mg Oxycodone HCl (Oxycodone Immediate Release Tab) 30 mg PO Q6H PRN PRN Reason: Pain, severe (8-10) Last Admin: 11/23/16 20:00 Dose: 30 mg Polyethylene Glycol (Miralax) 17 gm PO BID ALEXI Last Admin: 11/23/16 17:44 Dose: Not Given - Labs Labs: 11/22/16 20:25 11/22/16 08:38 PT 11.5 Seconds (9.9-11.8) 11/22/16 08:30 INR 1.06 (0.93-1.08) 11/22/16 08:30 APTT 37.8 Seconds (23.7-30.8) H 11/23/16 07:00 Micro Results 11/18/16 22:00 Naris MRSA Culture (Admit) - Final MRSA NOT DETECTED Most Recent Lab Values WBC 5.2 10^3/ul (4.5-11.0) 11/22/16 20:25 RBC 3.14 10^6/uL (3.5-6.1) L 11/22/16 20:25 Hgb 8.8 gm/dL (12.0-16.0) L 11/22/16 20:25 Hct 27.4 % (36.0-48.0) L 11/22/16 20:25 MCV 87.3 fL (80.0-105.0) 11/22/16 20:25 MCH 28.0 pg (25.0-35.0) 11/22/16 20:25 MCHC 32.1 g/dl (31.0-37.0) 11/22/16 20:25 RDW 18.4 % (11.5-14.5) H 11/22/16 20:25 Plt Count 227 10^3/uL (120.0-450.0) 11/22/16 20:25 MPV 9.3 fl (7.0-11.0) 11/22/16 20:25 Gran % 42.4 % (50.0-68.0) L 11/21/16 06:00 Lymph % (Auto) 42.7 % (22.0-35.0) H 11/21/16 06:00 [place] % (Auto) 11.1 % (1.0-6.0) H 11/21/16 06:00 Eos % (Auto) 3.2 % (1.5-5.0) 11/21/16 06:00 Baso % (Auto) 0.6 % (0.0-3.0) 11/21/16 06:00 Gran # 2.25 (1.4-6.5) 11/21/16 06:00 Lymph # 2.3 (1.2-3.4) 11/21/16 06:00 [place]more # 0.6 (0.1-0.6) 11/21/16 06:00 Eos # 0.2 (0.0-0.7) 11/21/16 06:00 Baso # 0.03 K/mm3 (0.0-2.0) 11/21/16 06:00 PT 11.5 Seconds (9.9-11.8) 11/22/16 08:30 INR 1.06 (0.93-1.08) 11/22/16 08:30 APTT 37.8 Seconds (23.7-30.8) H 11/23/16 07:00 D-Dimer, Quantitative 3.29 mg/L FEU (0-0.50) H 11/18/16 14:03 pO2 76 mm/Hg (30-55) H 11/19/16 11:45 VBG pH 7.36 (7.32-7.43) 11/19/16 11:45 VBG pCO2 40.0 (40-60) 11/19/16 11:45 VBG HCO3 22.6 mmol/l (21-28) 11/19/16 11:45 VBG Total CO2 23.8 mmol.L (22-28) 11/19/16 11:45 VBG O2 Sat (Calc) 97.2 % (40-65) H 11/19/16 11:45 VBG Base Excess -2.7 mmol/L (0.0-2.0) L 11/19/16 11:45 VBG Potassium 3.0 mmol/L (3.6-5.2) L 11/19/16 11:45 Sodium 141.0 mmol/L (132-148) 11/19/16 11:45 Chloride 110.0 mmol/L (98-107) H 11/19/16 11:45 Glucose 107 mg/dl (65-105) H 11/19/16 11:45 Lactate 0.8 mmol/L (0.7-2.1) 11/19/16 11:45 FiO2 21.0 % 11/19/16 11:45 Sodium 142 mmol/L (132-148) 11/22/16 08:38 Potassium 4.4 mmol/L (3.6-5.0) 11/22/16 08:38 Chloride 111 mmol/L (95-110) H 11/22/16 08:38 Carbon Dioxide 24 mmol/L (21-33) 11/22/16 08:38 Anion Gap 11 (10-20) 11/22/16 08:38 BUN 10 mg/dL (7-21) 11/22/16 08:38 Creatinine 0.5 mg/dL (0.5-1.4) 11/22/16 08:38 Est GFR ( Amer) > 60 11/22/16 08:38 Est GFR (Non-Af Amer) > 60 11/22/16 08:38 Random Glucose 77 mg/dL (70-110) 11/22/16 08:38 Calcium 8.9 mg/dL (8.4-10.5) 11/22/16 08:38 Phosphorus 2.9 mg/dL (2.5-4.5) 11/20/16 05:45 Magnesium 1.3 mg/dL (1.7-2.2) L 11/20/16 05:45 Lactate Dehydrogenase 1016 U/L (333-699) H 11/18/16 14:03 Total Creatine Kinase 870 U/L (35-230) H 11/21/16 09:10 CK-MB (CK-2) 1.9 ng/mL (0.0-3.6) 11/21/16 09:10 CK-MB (CK-2) % 0.3 % (2.5-3.0) L 11/19/16 18:47 Troponin I 0.02 ng/mL D 11/18/16 14:03 NT-Pro-B Natriuret Pep 785 pg/mL (0-450) H 11/18/16 14:03 Venous Blood Potassium 3.0 mmol/L (3.6-5.2) L 11/19/16 11:45 Urine Color Light yellow (YELLOW) 11/19/16 16:20 Urine Appearance Clear (CLEAR) 11/19/16 16:20 Urine pH 6.5 (4.7-8.0) 11/19/16 16:20 Ur Specific [place] 1.010 (1.005-1.035) 11/19/16 16:20 Urine Protein Negative mg/dL (<30 mg/dL) 11/19/16 16:20 Urine Glucose (UA) Negative mg/dL (NEGATIVE) 11/19/16 16:20 Urine Ketones Negative mg/dL (NEGATIVE) 11/19/16 16:20 Urine Blood Trace-lysed (NEGATIVE) H 11/19/16 16:20 Urine Nitrate Negative (NEGATIVE) 11/19/16 16:20 Urine Bilirubin Negative (NEGATIVE) 11/19/16 16:20 Urine Urobilinogen 0.2 E.U./dL (<1 E.U./dL) 11/19/16 16:20 Ur Leukocyte Esterase Negative Zheng/uL (NEGATIVE) 11/19/16 16:20 Urine RBC 0 - 2 /hpf (0-2) 11/19/16 16:20 Urine WBC Negative /hpf (0-6) 11/19/16 16:20 Ur Epithelial Cells 0 - 2 /hpf (0-5) 11/19/16 16:20 Urine Bacteria Trace (NEG) 11/19/16 16:20 Urine Opiates Screen Positive (NEGATIVE) H 11/19/16 16:20 Urine Methadone Screen Negative (NEGATIVE) 11/19/16 16:20 Ur Barbiturates Screen Negative (NEGATIVE) 11/19/16 16:20 Ur Phencyclidine Scrn Negative (NEGATIVE) 11/19/16 16:20 Ur Amphetamines Screen Negative (NEGATIVE) 11/19/16 16:20 U Benzodiazepines Scrn Negative (NEGATIVE) 11/19/16 16:20 U Oth Cocaine Metabols Negative (NEGATIVE) 11/19/16 16:20 U Cannabinoids Screen Negative (NEGATIVE) 11/19/16 16:20 Blood Type A POSITIVE 11/21/16 09:10 Antibody Screen Negative 11/21/16 09:10 Crossmatch See Detail 11/21/16 09:10 BBK History Checked Patient has bt 11/21/16 09:10 - Constitutional Appears: Well, No Acute Distress - Head Exam Head Exam: ATRAUMATIC, NORMAL INSPECTION, NORMOCEPHALIC - Eye Exam Eye Exam: Normal appearance - ENT Exam ENT Exam: Normal External Ear Exam Additional comments: Minimal sphenoid tenderness positive. - Neck Exam Neck Exam: Normal Inspection - Respiratory Exam Respiratory Exam: NORMAL BREATHING PATTERN - Cardiovascular Exam Cardiovascular Exam: absent: JVD - GI/Abdominal Exam GI & Abdominal Exam: absent: Distended - Rectal Exam Rectal Exam: Deferred - Extremities Exam Extremities Exam: Normal Inspection - Back Exam Back Exam: NORMAL INSPECTION - Neurological Exam Neurological Exam: Alert, Oriented x3 - Psychiatric Exam Psychiatric exam: Normal Affect, Normal Mood - Skin Skin Exam: Normal Color Assessment and Plan - Assessment and Plan (Free Text) Assessment: Sinusitis. Asthma. CAD. HTN. HLD. Obesity. Plan: Motrin 800 mg PO stat. Afrin nasal spary as ordered. Continue present management.
[2016-11-23] MEDS ORDERED: Oxymetazoline 0.05% Nasal Spray (30 ml) NS SCH (22:15)
[2016-11-24 00:11] VITALS: RESP 20; O2SAT 100
[2016-11-24] MEDS: Enoxaparin 100 mg Syringe SC SCH (05:23)
[2016-11-24] MEDS: oxyCODONE 30 mg Immediate Release Tab PO PRN (05:23)
[2016-11-24] MEDS: Magnesium Oxide 400 mg Tab UD PO SCH (09:47)
[2016-11-24] MEDS: POLYETHYLENE GLYCOL 3350 17 GM/Dose PACKET PO SCH (09:47)
[2016-11-24 12:12] VITALS: PULSE 63; TEMP 98.6
[2016-11-24 14:18] VITALS: BP 120/76
--- NOTE | 2016-11-24 18:05 | DS ---
SUBJECTIVE: The patient is currently comfortable. She has no complaints of any pain. She was initi ally admitted to the hospital because of renal failure from rhabdomyolysis. It is unclear why she had developed rhabdomyolysis. She does have history of compliance issues and followup. The patient has no headaches or dizziness. PHYSICAL EXAMINATION: VITAL SIGNS: Temperature is 98.4, pulse of 92, blood pressure 128/75, respirations 20. GENERAL: The patient is comfortable, in no acute distress. HEENT: Anicteric sclerae. Moist mucosa. NECK: No JVD or adenopathy. CARDIAC: S1/S2. No murmurs. No rubs. Regular. RESPIRATORY: Clear to auscultation bilaterally. No wheezes, rales, or rhonchi. Good air entry. ABDOMEN: Bowel sounds are positive, soft, nontender, and nondistended. EXTREMITIES: No edema. Has 1+ pulses. LABORATORY DATA: Creatinine is 1.5. ASSESSMENT: 1. Acute kidney injury, resolved. 2. Rhabdomyolysis, resolved. 3. Hypercoagulable state. 4. Chronic anemia. 5. Iron deficiency. 6. Status post gastric bypass. 7. Dyslipidemia. 8. Chronic back pain. 9. Poor IV access. 10. PENICILLIN ALLERGY. PLAN: The patient is currently comfortable. She is back to her baseline. She is going to be discha rged home. CONDITION: Stable. ACTIVITY: Increase as tolerated. MEDICATIONS: She is on Lovenox. She is going to continue. She has it at home. She is on Lipitor f or dyslipidemia. She is on Neurontin for neuropathy. She is on oxycodone for pain. FOLLOWUP: With Dr. Aden and Dr. Huerta in 1-2 weeks. Ramses Huerta MD cc: [id number] TT: 11/24/2016 18:04:20 ln
== END 2016-11-24 14:21 | disposition home health service (06) | DRG 683 ==
LOC: ED 13:36 → ERH 17:57 → CCU 21:45 → 2RSO 11-21 22:20
PROVIDERS: ADMIT Internal Medicine Nephrology; ATTEND Internal Medicine Nephrology
DX: N17.9 Acute kidney failure, unspecified (principal); M62.82 Rhabdomyolysis; D68.59 Other primary thrombophilia; E87.2 Acidosis; E83.42 Hypomagnesemia; I10 Essential (primary) hypertension; E78.5 Hyperlipidemia, unspecified; E83.39 Other disorders of phosphorus metabolism; J45.909 Unspecified asthma, uncomplicated; I25.10 Atherosclerotic heart disease of native coronary artery without angina pectoris; E78.00 Pure hypercholesterolemia, unspecified; D50.9 Iron deficiency anemia, unspecified; E87.6 Hypokalemia; G89.29 Other chronic pain; M54.9 Dorsalgia, unspecified; E66.01 Morbid (severe) obesity due to excess calories; Z79.01 Long term (current) use of anticoagulants; Z68.31 Body mass index [BMI] 31.0-31.9, adult; Z91.19 Patient's noncompliance with other medical treatment and regimen; Z86.711 Personal history of pulmonary embolism; Z86.73 Personal history of transient ischemic attack (TIA), and cerebral infarction without residual deficits; Z90.710 Acquired absence of both cervix and uterus; Z98.84 Bariatric surgery status; Z88.0 Allergy status to penicillin; Z80.3 Family history of malignant neoplasm of breast; Z82.3 Family history of stroke

== ENCOUNTER 2016-12-19 16:02 | Observation (INO) | payer MEDICARE, OTHER ==
--- NOTE | 2016-12-19 16:28 | ED PDOC ---
Arrival/HPI - General Chief Complaint: Lower Extremity Problem/Injury Time Seen by Provider: 12/19/16 16:05 Historian: Patient - History of Present Illness Narrative History of Present Illness (Text): The patient is a 61yo female, presents to the emergency department for evaluation after sustaining a mechanical fall yesterday. She reports that her right kneecap "popped out" and she "pushed her kneecap back in"; pt is currently complaining of anterior knee pain. She denies any hip injury. Patient offers no additional medical complaints. Time/Duration: 24 hours Symptom Onset: Gradual Past Medical History - Provider Review Nursing Documentation Reviewed: Yes - Infectious Disease Hx of Infectious Diseases: None - Tetanus Immunization Tetanus Immunization: Unknown - Cardiac Hx Hypertension: Yes - Pulmonary Hx Asthma: Yes - Neurological Hx Paralysis: No - HEENT Hx HEENT Disorder: No - Renal Hx Renal Disorder: No - Endocrine/Metabolic Hx Endocrine Disorders: No - Hematological/Oncological Hx Blood Transfusions: Yes Hx Blood Transfusion Reaction: No - Integumentary Hx Dermatological Disorder: No - Musculoskeletal/Rheumatological Hx Falls: Yes Hx Rhabdomyolysis: Yes - Gastrointestinal Hx Gastrointestinal Disorders: No - Genitourinary/Gynecological Hx Genitourinary Disorders: Yes Hx Urinary Tract Infection: Yes - Psychiatric Hx Emotional Abuse: No Hx Physical Abuse: No Hx Substance Use: No - Past Surgical History Past Surgical History: Non-Contributing - Surgical History Hx Amputation: Yes (bilateral middle fingers) Hx Gastric Bypass Surgery: Yes Hx Hysterectomy: Yes - Anesthesia Hx Anesthesia Reactions: No Hx Malignant Hyperthermia: No - Suicidal Assessment Feels Threatened In Home Enviroment: No Family/Social History - Physician Review Nursing Documentation Reviewed: Yes Family/Social History: Unknown Family HX Smoking Status: Never Smoked Hx Alcohol Use: No Hx Substance Use: No Hx Substance Use Treatment: No Allergies/Home Meds Allergies/Adverse Reactions: Allergies Penicillins Allergy (Verified 12/19/16 16:09) ANGIOEDEMA/SHORTNESS OF BREATH ANGIOEDEMA SHORTNESS OF BREATH Home Medications: Home Meds Medication Instructions Recorded Confirmed Gabapentin [Neurontin] 300 mg PO TID 12/05/13 12/19/16 Pantoprazole [Protonix EC Tab] 40 mg PO BID 12/05/13 12/19/16 Simvastatin 20 mg PO HS 11/07/15 12/19/16 Valsartan [Diovan] 80 mg PO QPM 11/07/15 12/19/16 Metoprolol Tartrate 25 mg PO BID 12/10/15 12/19/16 Fluticasone Nasal [Flonase] 2 spr NS DAILY PRN 03/28/16 12/19/16 Furosemide [Lasix] 40 mg PO DAILY 03/28/16 12/19/16 Review of Systems - Physician Review All systems were reviewed & negative as marked: Yes Physical Exam - Physical Exam Narrative Physical Exam (Text): - Review of Systems Constitutional: Normal. absent: Fatigue, Weight Change, Fevers Eyes: Normal ENT: Normal Respiratory: Normal absent: SOB, Cough, Sputum Cardiovascular: Normal absent: Chest pain, Palpitations, Syncope Gastrointestinal: Normal absent: Abdominal pain, Diarrhea, Nausea, Vomiting Genitourinary: Normal. absent: Dysuria, Frequency, Hematuria Musculoskeletal: Right anterior knee pain. absent: Arthralgias, Back Pain, Neck Pain Skin: Normal Neurological: Normal absent: Focal Weakness Endocrine: Normal Hemo/Lymphatic: Normal Psychiatric: Normal - Physical exam Patient appears age appropriate, speaking full sentences without difficulty - Systems Exam Head: Present: Atraumatic, Normocephalic Pupils: Present: PERRL Extraocular Muscles: Present: EOMI Conjunctiva: Present: Normal Mouth: Present: Moist Mucous Membranes Neck: Present: Normal Range of Motion. No: MIDLINE TENDERNESS, Paraspinal Tenderness Respiratory/Chest: Present: Clear to Auscultation, Good Air Exchange. No: Respiratory Distress, Accessory Muscle Use, Tachypnic Cardiovascular: Present: Regular Rate and Rhythm, Normal S1, S2, Peripheral Pulses Present. No: Murmurs Abdomen: Present: Normal Bowel Sounds, No: Tenderness, Peritoneal Signs, Rebound, Guarding, Distention Back: Present: Normal Inspection. No: Midline Tenderness, Paraspinal Tenderness Upper Extremity: Present: Normal Inspection. No: Cyanosis, Edema Lower Extremity: Present: Positive anterior drawer test on right lower extremity , Normal right hip, ankle and foot. Normal ROM. No: Edema Neurological: Present: GCS=15, Speech Normal, cranial nerves II through XII fully intact with no cerebellar abnormality, neuro-sensory fully intact. No focal neurological deficits. Skin: Present: Warm, Dry, Normal Color. No: Rashes Lymphatic: Present: OX3, NI, NC Psychiatric: Present: Alert, Oriented x 3, Normal Insight, Normal Concentration Vital Signs Temp Pulse Resp BP Pulse Ox 12/19/16 18:03 75 18 145/71 98 12/19/16 16:07 98.2 F 78 18 149/76 98 Medical Decision Making ED Course and Treatment: Impression: Right knee pain after mechanical injury dw Dr. Amezquita, asked to obs with ortho eval pt unable to ambulate Differential Diagnosis included but are not limited to: Right knee strain, sprain, meniscal / ligamentous tear Plan: -- MRI right knee (requested per pt's pcp) -- Toradol 30 mg IM -- XR Right Knee Prior Visits: Notes and results from previous visits were reviewed. 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 Patient was hospitalized. Progress Notes: 12/19/16 17:15 Dr. Mckeon informed of admission pt in no distress, aware of and agrees with plan - RAD Interpretation Radiology Orders: 12/19/16 16:25 KNEE W/O CONTRAST RIGHT [MRI] Stat KNEE W PATELLA RIGHT 3 VIEW [RAD] Stat - Medication Orders Current Medication Orders: Atorvastatin Calcium (Lipitor) 10 mg PO HS [facility] Last Admin: 12/21/16 21:24 Dose: 10 mg Fluticasone Propionate (Flonase) 1 actuation NS DAILY PRN PRN Reason: Shortness of Breath Furosemide (Lasix) 20 mg PO DAILY PRN PRN Reason: LEG SWELLING Gabapentin (Neurontin) 300 mg PO TID ALEXI PRN Reason: Protocol Last Admin: 12/21/16 17:26 Dose: 300 mg Losartan Potassium (Cozaar) 50 mg PO QPM [facility] Last Admin: 12/21/16 17:28 Dose: 50 mg Metoprolol Tartrate (Lopressor) 25 mg PO BID [facility] Last Admin: 12/21/16 17:27 Dose: 25 mg Morphine Sulfate (Morphine) 4 mg IVP Q4H PRN PRN Reason: Pain, severe (8-10) Last Admin: 12/22/16 01:53 Dose: 4 mg Re-Assess: TOMEKA Pain Assessment Document 12/22/16 02:53 JOSE (Rec: 12/22/16 05:13 JOSE [id number]) Pain Reassessment Is this a pain reassessment? Yes Sleep Is patient sleeping during reassessment? Yes Oxycodone HCl (Oxycodone Immediate Release Tab) 30 mg PO Q6H PRN PRN Reason: Pain, moderate (4-7) Last Admin: 12/21/16 21:24 Dose: 30 mg Re-Assess: TOMEKA Pain Assessment Document 12/21/16 22:24 OLIVYared (Rec: 12/22/16 01:53 OLIVD [id number]) Pain Reassessment Is this a pain reassessment? Yes Presence of Pain Presence of Pain No Pantoprazole Sodium (Protonix Ec Tab) 40 mg PO BID ALEXI Last Admin: 12/21/16 17:28 Dose: 40 mg Potassium Chloride (K-Dur 20 Meq Er Tab) 40 meq PO BRK ALEXI Last Admin: 12/21/16 07:55 Dose: 40 meq Discontinued Medications Bupivacaine HCl (Marcaine 0.5%) 5 ml IJ ONCE ONE Stop: 12/20/16 08:00 Magnesium Sulfate/Dextrose (Magnesium Sulfate 1 Gm/100 Ml D5w) 1 gm in 100 mls @ 100 mls/hr IVPB ONCE ONE Stop: 12/19/16 20:26 Last Admin: 12/19/16 20:11 Dose: 100 mls/hr Ketorolac Tromethamine (Toradol) 30 mg IM STAT STA Stop: 12/19/16 16:26 Last Admin: 12/19/16 18:35 Dose: 30 mg Re-Assess: [facility] Pain Assessment Document 12/19/16 19:35 SWE (Rec: 12/19/16 22:08 SWE [id number]) Pain Reassessment Is this a pain reassessment? Yes Sleep Is patient sleeping during reassessment? No Presence of Pain Presence of Pain Yes Methylprednisolone Acetate (Depo-Medrol) 80 mg IM ONCE ONE Stop: 12/20/16 08:00 Morphine Sulfate (Morphine) 1 mg IVP STAT STA Stop: 12/20/16 10:32 Last Admin: 12/20/16 10:45 Dose: 1 mg Re-Assess: TOMEKA Pain Assessment Document 12/20/16 11:45 RS (Rec: 12/20/16 11:56 RS [email or web address]) Pain Reassessment Is this a pain reassessment? Yes Sleep Is patient sleeping during reassessment? Yes Potassium Chloride (K-Dur 20 Meq Er Tab) 40 meq PO STAT STA Stop: 12/19/16 19:28 Last Admin: 12/19/16 20:10 Dose: 40 meq - Scribe Statement The provider has reviewed the documentation as recorded by the Sherwin Smith Provider Sherwin Attestation: All medical record entries made by the Sherwin were at my direction and personally dictated by me. I have reviewed the chart and agree that the record accurately reflects my personal performance of the history, physical exam, medical decision making, and the department course for this patient. I have also personally directed, reviewed, and agree with the discharge instructions and disposition. Disposition/Present on Arrival - Present on Arrival Any Indicators Present on Arrival: No History of DVT/PE: No History of Uncontrolled Diabetes: No Urinary Catheter: No History of Decub. Ulcer: No History Surgical Site Infection Following: None - Disposition Have Diagnosis and Disposition been Completed?: Yes Diagnosis: Knee injury Disposition: HOSPITALIZED Disposition Time: 17:18 Patient Plan: Observation Patient Problems: Current Active Problems Problem Status Onset Knee injury Acute Condition: STABLE
[2016-12-19] MEDS ORDERED: Fluticasone Nasal 50 mcg/Spray NS PRN (18:41)
[2016-12-19] MEDS ORDERED: Oxycodone/Acetaminophen 10/325 mg Tab PO PRN (18:45)
--- NOTE | 2016-12-19 19:00 | MRI ---
EXAM: MR Right Lower Extremity Without Intravenous Contrast, Knee CLINICAL HISTORY: The patient age is 61 years old and is female; Injury or trauma; Injury Patient twisted her right knee 3 days ago; Initial encounter; Sprain or strain and swelling (edema); Patella or knee; Additional info: Pain, injury Facility exam id and description: Mri kneewoconr knee w/o contrast right TECHNIQUE: Multiplanar magnetic resonance images of the right knee without intravenous contrast. EXAM DATE/TIME: 12/19/2016 4:25 PM COMPARISON: CR - TIBIA FIBIA RIGHT 04/14/2016 2:31:59 PM FINDINGS: BONES/JOINTS/CARTILAGE: Patellofemoral compartment: Advanced tricompartment hypertrophic degenerative changes are identified. There is significant irregularity and heterogeneous signal intensity of the cartilage in the medial compartment. There is patellar cartilage loss of the medial facet. There is a small patellofemoral joint effusion. Edema is seen within Hoffa's fat, with a small amount of fluid within the deep infrapatellar bursa. Femorotibial compartments: There is cartilage thinning/loss within the lateral compartment, with subchondral cystic and edematous change, consistent with advanced arthropathy. Patchy edema or contusion is identified within the bone marrow of the distal femur. There is a linear band of T2 hyperintensity within the posterior aspect of the lateral femoral condyle, likely representing a nondisplaced fracture. Extensor mechanism: No visualized acute tear of the patellar tendon or quadriceps tendon. Medial meniscus: There is myxoid degeneration within the posterior horn of the medial meniscus. There is mild extension of signal intensity to the inferior articulating surface, suggestive of meniscal tear. This is best visualized on series 6. Lateral meniscus: There is extrusion of the anterior horn of the lateral meniscus. Abnormal morphology and signal intensity is identified of the lateral meniscus, likely due to combination of advanced degenerative change and meniscal tear(s). Medial capsule/supporting structures: No visualized acute tear of the medial collateral ligament. Lateral capsule/supporting structures: No visualized acute tear of the lateral collateral ligament. Anterior cruciate ligament: There is separation of the bands of the ACL, without a full thickness tear. Posterior cruciate ligament: No visualized acute tear. Musculature: Mild edema is seen within the gastrocnemius muscles, which is likely post traumatic or due to muscle strain. Soft tissues: Soft tissue swelling is visualized posterior to the knee. There is mild soft tissue edema anterior to the patellar tendon and anterior tibial tubercle. Small collections of fluid are visualized posterior to the PCL, suggestive of ganglion cysts. There is a probable loose body also visualized posterior to the PCL. A small amount of fluid is identified adjacent to the popliteus muscle. IMPRESSION: 1. Patchy edema or contusion is identified within the bone marrow of the distal femur. There is a linear band of T2 hyperintensity within the posterior aspect of the lateral femoral condyle, likely representing a nondisplaced fracture. 2. Advanced tricompartment hypertrophic degenerative changes are described above. 3. There is extrusion of the anterior horn of the lateral meniscus. Abnormal morphology and signal intensity is identified of the lateral meniscus, likely due to combination of advanced degenerative change and meniscal tear(s). 4. There is myxoid degeneration within the posterior horn of the medial meniscus. There is mild extension of signal intensity to the inferior articulating surface, suggestive of meniscal tear. 5. Soft tissue swelling is visualized posterior to the knee. 6. There is a small patellofemoral joint effusion. 7. Mild edema is seen within the gastrocnemius muscles, which is likely post traumatic or due to muscle strain. 8. Additional findings described above.
[2016-12-19 19:05] LABS: BASO # 0.03 K/mm3 (0.0-2.0); BASO % 0.7 % (0.0-3.0); EOS # 0.1 (0.0-0.7); EOS % 2.7 % (1.5-5.0); GRAN # 2.36 (1.4-6.5); HEMOGLOBIN 9.9 gm/dL (12.0-16.0); LYMPH # 1.5 (1.2-3.4); MEAN CELL VOLUME 89.7 fL (80.0-105.0); MEAN CORPUSCULAR HEMOGLOBIN 29.1 pg (25.0-35.0); MEAN CORPUSCULAR HGB CONC 32.5 g/dl (31.0-37.0); MEAN PLATELET VOLUME 9.7 fl (7.0-11.0); MONO # 0.5 (0.1-0.6); MONO % 10.6 % (1.0-6.0); PLATELET COUNT 244 10^3/uL (120.0-450.0); RED CELL DISTRIBUTION WIDTH 16.9 % (11.5-14.5); WHITE BLOOD COUNT 4.5 10^3/ul (4.5-11.0)
--- NOTE | 2016-12-19 19:06 | CP.PCM.HP ---
Addendum entered and electronically signed by Joe Mckeon DO 12/20/16 04:39: Patient was seen and examined and case was discussed at length with Dr. Baker. Patient with trauma to the right knee, tender, MRI shows likely nondisplaced fracture of lateral femoral condyle and likely lateral and medial meniscus tears. Ortho ocnsulted. Joe Mckeon D.O. 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 Three days ago, she was tangled in her sheets in bed, then turned over, and felt her right knee pop out of place. She "popped it back in" and felt immediate pain and swelling. Over the past three days, her pain and swelling improved, and she has been ambulating with a walker. Her pain radiates down to her right calf. She also says that she has always had popping in that knee, and years ago had arthroscopic partial lateral meniscectomy. Pain improves with percocet, worsens with weight bearing. She denies weakness, numbness, F/C, N/V/D/C, abdominal pain CP, SOB, cough. PMH: Coumadin necrosis, CVA, HTN, GERD, and DVT PSH: Right arthroscopic lateral meniscectomy, B/L mastectomy, B/L ring finger amputation, Hysterectomy for fibroids, gastric bypass, IVC filter Soc: Denies tobacco, alcohol, or illicit drug use All: Penicillin FHx: Mother breast CA, Father unknown CA, Sister unknown CA Meds: See MAR Constitutional: pt denies fever, chills, ENT: pt denies dysphagia, otalgia, hearing deficit, rhinorrhea Eyes: pt denies sudden loss of vision, diplopia, blurred vision MSK: +right knee pain pt denies muscle stiffness, extremity cramping Cardio: pt denies cp, sob, dvt Pulm: pt denies cough, hemoptysis, wheeze GI: pt denies abdominal pain, constipation, melena, n/v/d : pt denies burning on urination, urinary frequency, hematuria, urinary urgency Neuro: pt denies paresis, paresthesia, dizziness, peterson, numbness, tingling Derm: pt denies skin changes, lesions, nail changes Endo: pt denies intolerance to heat/cold, diaphoresis, night sweats, polydipsia Psych: pt denies anxiety, depression, mood changes Present on Admission - Present on Admission Any Indicators Present on Admission: Yes History of DVT/PE: Yes History of Uncontrolled Diabetes: No Urinary Catheter: No Decubitus Ulcer Present: No Past Patient History - Infectious Disease Hx of Infectious Diseases: None - Tetanus Immunizations Tetanus Immunization: Unknown - Past Medical History & Family History Past Medical History?: Yes - Past Social History Smoking Status: Never Smoked - CARDIAC Hx Hypertension: Yes - PULMONARY Hx Asthma: Yes - NEUROLOGICAL Hx Paralysis: No - HEENT Hx HEENT Problems: No - RENAL Hx Chronic Kidney Disease: No - ENDOCRINE/METABOLIC Hx Endocrine Disorders: No - HEMATOLOGICAL/ONCOLOGICAL Hx Blood Transfusions: Yes Hx Blood Transfusion Reaction: No - INTEGUMENTARY Hx Dermatological Problems: No - MUSCULOSKELETAL/RHEUMATOLOGICAL Hx Falls: Yes Hx Rhabdomyolysis: Yes - GASTROINTESTINAL Hx Gastrointestinal Disorders: No - GENITOURINARY/GYNECOLOGICAL Hx Genitourinary Disorders: Yes Hx Urinary Tract Infection: Yes - PSYCHIATRIC Hx Emotional Abuse: No Hx Physical Abuse: No Hx Substance Use: No - SURGICAL HISTORY Hx Amputation: Yes (bilateral middle fingers) Hx Gastric Bypass Surgery: Yes Hx Hysterectomy: Yes - ANESTHESIA Hx Anesthesia Reactions: No Hx Malignant Hyperthermia: No Meds Allergies/Adverse Reactions: Allergies Allergy/AdvReac Type Severity Reaction Status Date / Time Penicillins Allergy ANGIOEDEMA/SHORTNESS Verified 12/19/16 16:09 OF BREATH Physical Exam - Constitutional Appears: Non-toxic, No Acute Distress - Head Exam Head Exam: ATRAUMATIC, NORMOCEPHALIC - Eye Exam Eye Exam: EOMI, Normal appearance - ENT Exam ENT Exam: Mucous Membranes Moist - Neck Exam Neck exam: Positive for: Normal Inspection. Negative for: Lymphadenopathy, Thyromegaly - Respiratory Exam Respiratory Exam: Clear to Auscultation Bilateral. absent: Rales, Rhonchi, Wheezes - Cardiovascular Exam Cardiovascular Exam: RRR, +S1, +S2 - GI/Abdominal Exam GI & Abdominal Exam: Normal Bowel Sounds, Soft. absent: Tenderness - Extremities Exam Additional comments: Right knee: Exquisitely tender lateral joint line, anterior joint line. Moderately tender popliteal fossa. Mildly tender calf. Grossly deformed. Unable to perform Gabriella due to pain. Unable to perform drawer tests due to pain. Patient not tolerating exam. Bilateral 4th finger distal phalanx amputation. - Neurological Exam Neurological exam: Alert, Oriented x3 - Psychiatric Exam Psychiatric exam: Normal Affect, Normal Mood - Skin Skin Exam: Dry, Intact Results - Vital Signs Recent Vital Signs: Last Vital Signs Temp 98.2 F 12/19/16 16:07 Pulse 75 12/19/16 18:03 Resp 18 12/19/16 18:03 BP 145/71 12/19/16 18:03 Pulse Ox 98 12/19/16 18:03 - Labs Result Diagrams: 12/19/16 18:50 12/19/16 18:50 Assessment & Plan - Assessment and Plan (Free Text) Assessment: 61 yo F with PMH of right lateral meniscus tear, CVA, coumadin necrosis, DVT, HTN, and GERD presented to ED for right knee pain. Likely meniscal tears Plan: 1. Knee pain - Unable to ambulate - MRI in the ED officially read as likely nondisplaced fracture of the lateral femoral condyle, and likely lateral and medial meniscus tears. - Consult Ortho (Mastromonaco) - Percocet 10/325 Q6H PRN for pain, which she normally takes at home - Low risk fall precautions - OOB as tolerated - Transfer to observation 2. Hypokalemia - Potassium 3.1 - Replete, recheck in AM 3. Anemia - Hgb 9.9 - Hemodynamically stable, no active bleeding. - Currently asymptomatic, recheck CBC in AM for any acute changes 4. Hx of HTN, CVA, DVT - Patient has IVC in place - Resume home meds GI/DVT Ppx - Protonix, SCD Patient seen and discussed with senior resident and attending <John Amezquita - Last Filed: 12/22/16 17:19> Results - Vital Signs Recent Vital Signs: Last Vital Signs Temp 98.2 F 12/22/16 07:58 Pulse 61 12/22/16 09:22 Resp 18 12/22/16 07:58 BP 132/83 12/22/16 09:22 Pulse Ox 100 12/22/16 07:58 - Labs Result Diagrams: 12/22/16 06:40 12/22/16 06:40 Labs: Laboratory Results - last 24 hr 12/22/16 12/22/16 06:40 06:40 WBC 6.5 D RBC 3.14 L Hgb 9.0 L Hct 28.1 L MCV 89.5 MCH 28.7 MCHC 32.0 RDW 16.6 H Plt Count 225 MPV 8.8 Gran % 39.9 L Lymph % (Auto) 46.5 H [place] % (Auto) 7.2 H Eos % (Auto) 5.8 H Baso % (Auto) 0.6 Gran # 2.60 Lymph # 3.0 [place] # 0.5 Eos # 0.4 Baso # 0.04 Sodium 140 Potassium 3.9 Chloride 112 H Carbon Dioxide 20 L Anion Gap 12 BUN 14 Creatinine 0.6 Est GFR ( Amer) > 60 Est GFR (Non-Af Amer) > 60 Random Glucose 78 Calcium 8.8 Total Bilirubin 0.4 AST 20 ALT 34 Alkaline Phosphatase 62 Total Protein 6.4 Albumin 3.0 Globulin 3.3 Albumin/Globulin Ratio 0.9 L Attending/Attestation - Attestation I have personally seen and examined this patient.: Yes I have fully participated in the care of the patient.: Yes I have reviewed all pertinent clinical information: Yes Notes (Text): 12/22/16 17:19 Medical record note made by the resident after discussion with my direction and input after the patient was personally seen and examined by me. I have reviewed the chart and agree that the record accurately reflects by personal performance of the history, physical exam, data review, and medical decision-making, in the course for the patient. I have also personally directed the plan of care.
[2016-12-19 19:09] LABS: ALBUMIN 3.6 g/dL (3.0-4.8); ALT/SGPT 55 U/L (7-56); AST/SGOT 59 U/L (15-39); BLOOD UREA NITROGEN 13 mg/dL (7-21); CALCIUM 9.4 mg/dL (8.4-10.5); GFR AFRICAN-AMERICAN > 60; GFR NON-AFRICAN AMERICAN > 60
[2016-12-19 19:12] LABS: PARTIAL THROMBOPLASTIN TIME 23.8 Seconds (23.7-30.8); PROTHROMBIN TIME 10.8 Seconds (9.9-11.8)
[2016-12-19] MEDS ORDERED: Magnesium Sulfate 1 gm in D5W 1 GM/100 ML BAG IVPB ONE (19:27)
[2016-12-19] MEDS ORDERED: Potassium Chloride 20 mEq ER Tab PO STA (19:27)
[2016-12-19] MEDS: oxyCODONE 30 mg Immediate Release Tab PO PRN (22:03)
[2016-12-19 22:11] VITALS: BMI 30.7
--- NOTE | 2016-12-20 02:11 | CP.PCM.PN ---
Subjective - Date & Time of Evaluation Date of Evaluation: 12/20/16 Time of Evaluation: 02:11 - Subjective Subjective: # 22 angiocath was inserted in right arm. Dx:Poor venous access. Objective - Vital Signs/Intake and Output Vital Signs (last 24 hours): Temp Pulse Resp BP Pulse Ox 98.2 F 75 18 145/71 98 12/19/16 16:07 12/19/16 18:03 12/19/16 21:45 12/19/16 18:03 12/19/16 18:03 - Medications Medications: Current Medications Atorvastatin Calcium (Lipitor) 10 mg PO HS ALEXI Fluticasone Propionate (Flonase) 1 actuation NS DAILY PRN PRN Reason: Shortness of Breath Furosemide (Lasix) 20 mg PO DAILY PRN PRN Reason: LEG SWELLING Gabapentin (Neurontin) 300 mg PO TID ALEXI PRN Reason: Protocol Losartan Potassium (Cozaar) 50 mg PO QPM ALEXI Metoprolol Tartrate (Lopressor) 25 mg PO BID [facility] Morphine Sulfate (Morphine) 4 mg IVP Q4H PRN PRN Reason: Pain, severe (8-10) Oxycodone HCl (Oxycodone Immediate Release Tab) 30 mg PO Q6H PRN PRN Reason: Pain, moderate (4-7) Last Admin: 12/19/16 22:03 Dose: 30 mg Pantoprazole Sodium (Protonix Ec Tab) 40 mg PO BID ALEXI - Labs Labs: 12/19/16 18:50 12/19/16 18:50 PT 10.8 Seconds (9.9-11.8) 12/19/16 18:50 INR 1.00 (0.93-1.08) 12/19/16 18:50 APTT 23.8 Seconds (23.7-30.8) 12/19/16 18:50
[2016-12-20] MEDS: oxyCODONE 30 mg Immediate Release Tab PO PRN ×3 (06:11→19:05)
[2016-12-20 07:30] LABS: HEMOGLOBIN 8.7 gm/dL (12.0-16.0); MEAN CELL VOLUME 90.7 fL (80.0-105.0); MEAN CORPUSCULAR HEMOGLOBIN 28.8 pg (25.0-35.0); MEAN CORPUSCULAR HGB CONC 31.8 g/dl (31.0-37.0); MEAN PLATELET VOLUME 10.4 fl (7.0-11.0); PLATELET COUNT 192 10^3/uL (120.0-450.0); RBC 3.02 10^6/uL (3.5-6.1); RED CELL DISTRIBUTION WIDTH 17.1 % (11.5-14.5); WHITE BLOOD COUNT 4.4 10^3/ul (4.5-11.0)
[2016-12-20 07:52] LABS: ALB/GLOB RATIO 0.9 (1.1-1.8); ALBUMIN 3.1 g/dL (3.0-4.8); ALT/SGPT 41 U/L (7-56); AST/SGOT 40 U/L (15-39); BLOOD UREA NITROGEN 12 mg/dL (7-21); CALCIUM 8.9 mg/dL (8.4-10.5); GFR AFRICAN-AMERICAN > 60; GFR NON-AFRICAN AMERICAN > 60
[2016-12-20] MEDS ORDERED: Bupivacaine 0.5% Inj(30mL) IJ ONE (07:59)
[2016-12-20] MEDS ORDERED: MethylPREDNISolone Depo 40 mg/ml Inj IM ONE (07:59)
[2016-12-20] MEDS: Morphine 4 mg/ml ISec IVP PRN ×3 (08:28→22:13)
[2016-12-20] MEDS: Potassium Chloride 20 mEq ER Tab PO SCH (08:30)
[2016-12-20] MEDS: Pantoprazole 40 mg EC Tab PO SCH ×2 (10:01→17:27)
[2016-12-20 10:27] LABS: EOSINOPHIL 1 % (0.0-3.0); LYMPHOCYTE 59 % (22.0-35.0); MONOCYTE 8 % (1.0-6.0); NEUTROPHIL 32 % (50.0-70.0); PLATELET ESTIMATE NORMAL (NORMAL)
[2016-12-20 10:28] LABS: ANISOCYTOSIS SLIGHT; HYPOCHROMIA SLIGHT; MICROCYTOSIS SLIGHT
[2016-12-20] MEDS ORDERED: Morphine 2 mg/ml ISec IVP STA (10:31)
--- NOTE | 2016-12-20 11:30 | RAD ---
PROCEDURE: Right Knee Radiographs. HISTORY: pain COMPARISON: None. FINDINGS: BONES: No acute fracture. JOINTS: Tricompartmental osteoarthritis. This most severely affects the lateral and patellofemoral compartments. No articular erosion. JOINT EFFUSION: None. OTHER FINDINGS: None. IMPRESSION: Tricompartmental osteoarthritis. No acute fracture.
--- NOTE | 2016-12-20 12:58 | CP.PCM.PN ---
<Vincent Kennedy - Last Filed: 12/20/16 18:21> Subjective - Date & Time of Evaluation Date of Evaluation: 12/20/16 Time of Evaluation: 12:50 - Subjective Subjective: Medicine progress note for Dr. Ho/Dr. Amezquita service - Vincent Tovarmehran PGY2 Patient seen and examined at bedside this morning. No acute overnight events or new complaints. Patient was evaluated by ortho this morning and had a knee injection done by Dr. Avila. Pending PT eval and possibly further recs by ortho once MRI is reviewed. Denies chest pain, palpitations, SOB. Objective - Vital Signs/Intake and Output Vital Signs (last 24 hours): Temp Pulse Resp BP Pulse Ox 98.3 F 59 L 20 121/75 100 12/20/16 06:00 12/20/16 06:00 12/20/16 06:00 12/20/16 10:01 12/20/16 06:00 - Medications Medications: Current Medications Atorvastatin Calcium (Lipitor) 10 mg PO HS [facility] Fluticasone Propionate (Flonase) 1 actuation NS DAILY PRN PRN Reason: Shortness of Breath Furosemide (Lasix) 20 mg PO DAILY PRN PRN Reason: LEG SWELLING Gabapentin (Neurontin) 300 mg PO TID [facility] PRN Reason: Protocol Last Admin: 12/20/16 10:01 Dose: 300 mg Losartan Potassium (Cozaar) 50 mg PO QPM [facility] Last Admin: 12/20/16 10:01 Dose: 50 mg Metoprolol Tartrate (Lopressor) 25 mg PO BID [facility] Last Admin: 12/20/16 10:01 Dose: 25 mg Morphine Sulfate (Morphine) 4 mg IVP Q4H PRN PRN Reason: Pain, severe (8-10) Last Admin: 12/20/16 08:28 Dose: 4 mg Oxycodone HCl (Oxycodone Immediate Release Tab) 30 mg PO Q6H PRN PRN Reason: Pain, moderate (4-7) Last Admin: 12/20/16 12:43 Dose: 30 mg Pantoprazole Sodium (Protonix Ec Tab) 40 mg PO BID [facility] Last Admin: 12/20/16 10:01 Dose: 40 mg Potassium Chloride (K-Dur 20 Meq Er Tab) 40 meq PO BRK [facility] Last Admin: 12/20/16 08:30 Dose: 40 meq - Labs Labs: 12/20/16 06:30 12/20/16 06:30 PT 10.8 Seconds (9.9-11.8) 12/19/16 18:50 INR 1.00 (0.93-1.08) 12/19/16 18:50 APTT 23.8 Seconds (23.7-30.8) 12/19/16 18:50 - Constitutional Appears: Non-toxic, No Acute Distress - Head Exam Head Exam: ATRAUMATIC, NORMAL INSPECTION, NORMOCEPHALIC - Eye Exam Eye Exam: EOMI, PERRL - ENT Exam ENT Exam: Mucous Membranes Moist - Respiratory Exam Respiratory Exam: Clear to Ausculation Bilateral. absent: Rales, Rhonchi, Wheezes - Cardiovascular Exam Cardiovascular Exam: +S1, +S2. absent: Gallop, Rubs, Murmur - GI/Abdominal Exam GI & Abdominal Exam: Soft. absent: Distended, Firm, Guarding, Rigid, Tenderness , Rebound - Neurological Exam Neurological Exam: Alert, Awake, Oriented x3 - Psychiatric Exam Psychiatric exam: Normal Affect, Normal Mood - Skin Skin Exam: Dry, Intact, Normal Color, Warm Assessment and Plan - Assessment and Plan (Free Text) Plan: 61yo female with history of right lateral meniscus tear, CVA, coumadin necrosis , DVT, HTN, and GERD presented to ED for right knee pain 1. Right knee pain -Right knee xray reviewed; tricompartmental osteoarthritis, no apparent acute fracture -MRI reviewed; revealed advanced tricompartmental hypertrophic degenerative changes, extrusion of the anterior horn of the lateral meniscus likely secondary to advanced degenerative change and meniscal tear, myxoid degeneration within the posterior horn of the medial meniscus suggestive of meniscus tear, soft tissue swelling in the posterior knee, patellofemoral joint effusion; please refer to full report -Ortho consulted and she is s/p right knee injection; further recs to follow given that ortho eval was done prior to MRI result -Pain control -Fall precautions 2. Hypertension -Continue home metoprolol/losartan 3. Hyperlipidemia -Continue home lipitor 4. Hx of DVT -Prior history of IVC filter placement 5. Anemia -H/H stable, no overt bleeding apparent; -Will continue to trend H/H 6. GI/DVT Ppx -Protonix/SCD Patient seen and case discussed with attending, Dr. Amezquita <John Amezquita - Last Filed: 12/22/16 17:22> Objective - Vital Signs/Intake and Output Vital Signs (last 24 hours): Temp Pulse Resp BP Pulse Ox 98.2 F 61 18 132/83 100 12/22/16 07:58 12/22/16 09:22 12/22/16 07:58 12/22/16 09:22 12/22/16 07:58 Intake and Output: 12/22/16 12/22/16 06:59 18:59 Intake Total 420 360 Output Total 501 Balance -81 360 - Labs Labs: 12/22/16 06:40 12/22/16 06:40 PT 10.8 Seconds (9.9-11.8) 12/19/16 18:50 INR 1.00 (0.93-1.08) 12/19/16 18:50 APTT 23.8 Seconds (23.7-30.8) 12/19/16 18:50 Attending/Attestation - Attestation I have personally seen and examined this patient.: Yes I have fully participated in the care of the patient.: Yes I have reviewed all pertinent clinical information, including history, physical exam and plan: Yes Notes (Text): 12/22/16 17:22 Medical record note made by the resident after discussion with my direction and input after the patient was personally seen and examined by me. I have reviewed the chart and agree that the record accurately reflects by personal performance of the history, physical exam, data review, and medical decision-making, in the course for the patient. I have also personally directed the plan of care.
--- NOTE | 2016-12-20 14:07 | CON ---
HISTORY OF PRESENT ILLNESS: A 61-year-old female admitted to [facility] on 11/19/2016 and seen on 11/20/2016 for orthopedic symptoms of pain in the right knee with instability. X-ray showed a 10-degree valgus deformity with [id number] on the lateral joint line with extreme amount of osteophytes that are impinging on the synovium; seen on both on AP and lateral positions and the patella is extremely affected with osteophytes; also this could be causing her symptoms of instability and occasional episodes on locking, snapping and effusion. She has good dorsalis pedis pulse. 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 So I told basically what she needs is total knee replacement, but she is not contemplating that yet, but that would get rid of her osteoarthritis with the risk of infection or mechanical problems,. So I told I would inject the knee with Depo Medrol Marcaine #1 and #2 is I should get her fitted for an unloaded kind of brace to get the weight off that lateral part of the knee distributed to the less affected side on the medial side, we will do that next week, we will have to make arrangements to get measurements and get landscape architect and planner brace for the right knee with which she walks with more security, and we will start physical therapy here to gain as much strength as we can and follow her. She does not have effusion to aspirate this. No evidence of fracture other than fracture of the osteophyte, but no join fracturing that may need surgery. She does not need any arthroscopy and I gave the injection for pain relief. Hopefully, we will not to do that often .as a hyalgen shot could be holpful but does not work as well for the lateral side of the knee than the medial side. Eventually, she probably going to have to resort to total knee replacement to eradicate the arthritis with the risk of loosening, infection and mechanical problems. So hopefully, she does well with this simple treatment and then to get her fitted for lateral landscape architect and planner brace and see how she does. The last step would be the totally replacement.will be glad to follow here in the office. Sae Avila DO ZORA
[2016-12-21] MEDS: oxyCODONE 30 mg Immediate Release Tab PO PRN ×4 (00:53→21:24)
[2016-12-21] MEDS: Morphine 4 mg/ml ISec IVP PRN ×4 (06:08→19:59)
[2016-12-21 07:11] LABS: BASO # 0.01 K/mm3 (0.0-2.0); BASO % 0.2 % (0.0-3.0); GRAN # 3.28 (1.4-6.5); GRAN % 60.3 % (50.0-68.0); HEMOGLOBIN 9.8 gm/dL (12.0-16.0); LYMPH # 1.8 (1.2-3.4); LYMPH % 32.5 % (22.0-35.0); MEAN CELL VOLUME 89.8 fL (80.0-105.0); MEAN CORPUSCULAR HEMOGLOBIN 28.5 pg (25.0-35.0); MEAN CORPUSCULAR HGB CONC 31.7 g/dl (31.0-37.0); MEAN PLATELET VOLUME 9.9 fl (7.0-11.0); MONO # 0.4 (0.1-0.6); PLATELET COUNT 242 10^3/uL (120.0-450.0); RBC 3.44 10^6/uL (3.5-6.1); RED CELL DISTRIBUTION WIDTH 16.4 % (11.5-14.5); WHITE BLOOD COUNT 5.4 10^3/ul (4.5-11.0)
[2016-12-21] MEDS: Potassium Chloride 20 mEq ER Tab PO SCH (07:55)
[2016-12-21 09:10] LABS: ALB/GLOB RATIO 0.9 (1.1-1.8); ALBUMIN 3.5 g/dL (3.0-4.8); ALT/SGPT 33 U/L (7-56); AST/SGOT 55 U/L (15-39); BLOOD UREA NITROGEN 11 mg/dL (7-21); CALCIUM 9.5 mg/dL (8.4-10.5); GFR AFRICAN-AMERICAN > 60; GFR NON-AFRICAN AMERICAN > 60
[2016-12-21] MEDS: Pantoprazole 40 mg EC Tab PO SCH ×2 (10:07→17:28)
--- NOTE | 2016-12-21 13:38 | CP.PCM.PN ---
<HO DÍAZ - Last Filed: 12/21/16 13:30> Subjective - Date & Time of Evaluation Date of Evaluation: 12/21/16 Time of Evaluation: 06:45 - Subjective Subjective: Ho Díaz DO PGY1 - Internal Medicine Progress Note - [place] Service Patient seen and examined at bedside. No acute overnight events or new complaints. Patient is s/p right knee steroid injection by Dr. Avila. Pain is unchanged since yesterday. Options, including TKR and conservative management were discussed with the patient, as she may not be a candidate for arthroscopic repair. She is a high risk patient, and if she elects to pursue surgical intervention, will likely have to see a high-risk ortho specialist. Pending PT eval and possibly further recs by ortho once MRI is reviewed. Denies chest pain, palpitations, SOB. Objective - Vital Signs/Intake and Output Vital Signs (last 24 hours): Temp Pulse Resp BP Pulse Ox 98.0 F 63 20 137/83 100 12/21/16 06:00 12/21/16 07:58 12/21/16 06:00 12/21/16 10:21 12/21/16 06:00 Intake and Output: 12/21/16 12/21/16 06:59 18:59 Intake Total 660 240 Balance 660 240 - Medications Medications: Current Medications Atorvastatin Calcium (Lipitor) 10 mg PO HS [facility] Last Admin: 12/20/16 22:10 Dose: 10 mg Fluticasone Propionate (Flonase) 1 actuation NS DAILY PRN PRN Reason: Shortness of Breath Furosemide (Lasix) 20 mg PO DAILY PRN PRN Reason: LEG SWELLING Gabapentin (Neurontin) 300 mg PO TID [facility] PRN Reason: Protocol Last Admin: 12/21/16 10:07 Dose: 300 mg Losartan Potassium (Cozaar) 50 mg PO QPM [facility] Last Admin: 12/20/16 17:27 Dose: 50 mg Metoprolol Tartrate (Lopressor) 25 mg PO BID [facility] Last Admin: 12/21/16 07:58 Dose: 25 mg Morphine Sulfate (Morphine) 4 mg IVP Q4H PRN PRN Reason: Pain, severe (8-10) Last Admin: 12/21/16 10:08 Dose: 4 mg Oxycodone HCl (Oxycodone Immediate Release Tab) 30 mg PO Q6H PRN PRN Reason: Pain, moderate (4-7) Last Admin: 12/21/16 08:02 Dose: 30 mg Pantoprazole Sodium (Protonix Ec Tab) 40 mg PO BID [facility] Last Admin: 12/21/16 10:07 Dose: 40 mg Potassium Chloride (K-Dur 20 Meq Er Tab) 40 meq PO BRK [facility] Last Admin: 12/21/16 07:55 Dose: 40 meq - Labs Labs: 12/21/16 06:00 12/21/16 06:00 PT 10.8 Seconds (9.9-11.8) 12/19/16 18:50 INR 1.00 (0.93-1.08) 12/19/16 18:50 APTT 23.8 Seconds (23.7-30.8) 12/19/16 18:50 - Constitutional Appears: Non-toxic, No Acute Distress - Head Exam Head Exam: ATRAUMATIC, NORMOCEPHALIC - Eye Exam Eye Exam: EOMI, Normal appearance - ENT Exam ENT Exam: Mucous Membranes Moist - Neck Exam Neck Exam: absent: Lymphadenopathy, Meningismus, Thyromegaly - Respiratory Exam Respiratory Exam: Clear to Ausculation Bilateral. absent: Rales, Rhonchi, Wheezes - Cardiovascular Exam Cardiovascular Exam: RRR, +S1, +S2 - GI/Abdominal Exam GI & Abdominal Exam: Soft. absent: Tenderness - Extremities Exam Additional comments: Right knee: Exquisitely tender lateral joint line, anterior joint line. Moderately tender popliteal fossa. Mildly tender calf. Grossly deformed. Positive Gabriella right lateral meniscus. negative anterior/posterior drawer. Patient gaurding and not tolerating exam well due to pain. Bilateral 4th finger distal phalanx amputation. - Neurological Exam Neurological Exam: Alert, Awake, Oriented x3 - Psychiatric Exam Psychiatric exam: Normal Affect, Normal Mood - Skin Skin Exam: Dry, Intact Assessment and Plan - Assessment and Plan (Free Text) Assessment: 61 yo F with PMH of right lateral meniscus tear, CVA, coumadin necrosis, DVT, HTN, and GERD presented to ED for right knee pain. Likely meniscal tears Plan: 1. Knee pain - Unable to ambulate - MRI in the ED officially read as likely nondisplaced fracture of the lateral femoral condyle, and likely lateral and medial meniscus tears; please refer to full report. - Ortho ([facility]) consulted, appreciate all recs; s/p right knee steroid injection, further recs to follow given that ortho eval was done prior to MRI result - Oxycodone 30mg Q6H PRN for pain, which she normally takes at home - Low risk fall precautions, OOB as tolerated 2. Hypokalemia - Improved - Continue to monitor, replete as indicated 3. Anemia - H/H stable - Hemodynamically stable, no active bleeding. - Currently asymptomatic, recheck CBC in AM for any acute changes 4. Hx of DVT - Prior history of IVC filter placement 5. Hx of HTN, CVA - Continue home meds GI/DVT Ppx - Protonix, SCD Patient seen and discussed with senior resident and attending <John Amezquita - Last Filed: 12/22/16 17:23> Objective - Vital Signs/Intake and Output Vital Signs (last 24 hours): Temp Pulse Resp BP Pulse Ox 98.2 F 61 18 132/83 100 12/22/16 07:58 12/22/16 09:22 12/22/16 07:58 12/22/16 09:22 12/22/16 07:58 Intake and Output: 12/22/16 12/22/16 06:59 18:59 Intake Total 420 360 Output Total 501 Balance -81 360 - Labs Labs: 12/22/16 06:40 12/22/16 06:40 PT 10.8 Seconds (9.9-11.8) 12/19/16 18:50 INR 1.00 (0.93-1.08) 12/19/16 18:50 APTT 23.8 Seconds (23.7-30.8) 12/19/16 18:50 Attending/Attestation - Attestation I have personally seen and examined this patient.: Yes I have fully participated in the care of the patient.: Yes I have reviewed all pertinent clinical information, including history, physical exam and plan: Yes Notes (Text): 12/22/16 17:23 Medical record note made by the resident after discussion with my direction and input after the patient was personally seen and examined by me. I have reviewed the chart and agree that the record accurately reflects by personal performance of the history, physical exam, data review, and medical decision-making, in the course for the patient. I have also personally directed the plan of care.
[2016-12-21 16:45] VITALS: TEMP 98.2
[2016-12-22] MEDS: Morphine 4 mg/ml ISec IVP PRN ×3 (01:53→10:24)
[2016-12-22 07:10] LABS: BASO # 0.04 K/mm3 (0.0-2.0); BASO % 0.6 % (0.0-3.0); EOS # 0.4 (0.0-0.7); EOS % 5.8 % (1.5-5.0); GRAN % 39.9 % (50.0-68.0); LYMPH % 46.5 % (22.0-35.0); MEAN CELL VOLUME 89.5 fL (80.0-105.0); MEAN CORPUSCULAR HEMOGLOBIN 28.7 pg (25.0-35.0); MEAN PLATELET VOLUME 8.8 fl (7.0-11.0); MONO # 0.5 (0.1-0.6); MONO % 7.2 % (1.0-6.0); PLATELET COUNT 225 10^3/uL (120.0-450.0); RBC 3.14 10^6/uL (3.5-6.1); RED CELL DISTRIBUTION WIDTH 16.6 % (11.5-14.5); WHITE BLOOD COUNT 6.5 10^3/ul (4.5-11.0)
[2016-12-22 07:47] LABS: ALB/GLOB RATIO 0.9 (1.1-1.8); ALT/SGPT 34 U/L (7-56); AST/SGOT 20 U/L (15-39); BLOOD UREA NITROGEN 14 mg/dL (7-21); CALCIUM 8.8 mg/dL (8.4-10.5); GFR AFRICAN-AMERICAN > 60; GFR NON-AFRICAN AMERICAN > 60
[2016-12-22 07:59] VITALS: BP 132/83; PULSE 61; RESP 18; O2SAT 100
[2016-12-22] MEDS: Potassium Chloride 20 mEq ER Tab PO SCH (08:15)
[2016-12-22] MEDS: oxyCODONE 30 mg Immediate Release Tab PO PRN (08:22)
[2016-12-22] MEDS: Pantoprazole 40 mg EC Tab PO SCH (09:23)
--- NOTE | 2016-12-22 14:06 | CP.PCM.DIS ---
Addendum entered and electronically signed by Joe Mckeon DO 12/22/16 15:55: Patient was seen and followed with Dr Baker through admission. Patient able to ambulate after steroid injection. Patient will see back in clinic in 1 week and continue PT. Joe Mckeon D.O. PGY-2 Original Note: <NADER BAKER - Last Filed: 12/22/16 13:56> Provider - Provider Date of Admission: 12/19/16 17:18 Attending physician: Orestes Ho MD Primary care physician: John Amezquita MD Consults: Ortho: [facility] Time Spent in preparation of Discharge (in minutes): 45 Diagnosis - Discharge Diagnosis (1) Inability to ambulate due to knee Status: Acute Priority: High (2) Coagulopathy Status: Chronic Priority: High (3) Knee injury Status: Acute Priority: High Hospital Course - Lab Results Lab Results: Most Recent Lab Values WBC 6.5 10^3/ul (4.5-11.0) D 12/22/16 06:40 RBC 3.14 10^6/uL (3.5-6.1) L 12/22/16 06:40 Hgb 9.0 gm/dL (12.0-16.0) L 12/22/16 06:40 Hct 28.1 % (36.0-48.0) L 12/22/16 06:40 MCV 89.5 fL (80.0-105.0) 12/22/16 06:40 MCH 28.7 pg (25.0-35.0) 12/22/16 06:40 MCHC 32.0 g/dl (31.0-37.0) 12/22/16 06:40 RDW 16.6 % (11.5-14.5) H 12/22/16 06:40 Plt Count 225 10^3/uL (120.0-450.0) 12/22/16 06:40 MPV 8.8 fl (7.0-11.0) 12/22/16 06:40 Gran % 39.9 % (50.0-68.0) L 12/22/16 06:40 Lymph % (Auto) 46.5 % (22.0-35.0) H 12/22/16 06:40 [place] % (Auto) 7.2 % (1.0-6.0) H 12/22/16 06:40 Eos % (Auto) 5.8 % (1.5-5.0) H 12/22/16 06:40 Baso % (Auto) 0.6 % (0.0-3.0) 12/22/16 06:40 Gran # 2.60 (1.4-6.5) 12/22/16 06:40 Lymph # 3.0 (1.2-3.4) 12/22/16 06:40 [place] # 0.5 (0.1-0.6) 12/22/16 06:40 Eos # 0.4 (0.0-0.7) 12/22/16 06:40 Baso # 0.04 K/mm3 (0.0-2.0) 12/22/16 06:40 Neutrophils % (Manual) 32 % (50.0-70.0) L 12/20/16 06:30 Lymphocytes % (Manual) 59 % (22.0-35.0) H 12/20/16 06:30 Monocytes % (Manual) 8 % (1.0-6.0) H 12/20/16 06:30 Eosinophils % (Manual) 1 % (0.0-3.0) 12/20/16 06:30 Platelet Evaluation Normal (NORMAL) 12/20/16 06:30 Hypochromasia Slight 12/20/16 06:30 Anisocytosis (manual) Slight 12/20/16 06:30 Microcytosis (manual) Slight 12/20/16 06:30 PT 10.8 Seconds (9.9-11.8) 12/19/16 18:50 INR 1.00 (0.93-1.08) 12/19/16 18:50 APTT 23.8 Seconds (23.7-30.8) 12/19/16 18:50 Sodium 140 mmol/L (132-148) 12/22/16 06:40 Potassium 3.9 mmol/L (3.6-5.0) 12/22/16 06:40 Chloride 112 mmol/L (98-107) H 12/22/16 06:40 Carbon Dioxide 20 mmol/L (21-33) L 12/22/16 06:40 Anion Gap 12 (10-20) 12/22/16 06:40 BUN 14 mg/dL (7-21) 12/22/16 06:40 Creatinine 0.6 mg/dL (0.5-1.4) 12/22/16 06:40 Est GFR ( Amer) > 60 12/22/16 06:40 Est GFR (Non-Af Amer) > 60 12/22/16 06:40 Random Glucose 78 mg/dL (70-110) 12/22/16 06:40 Calcium 8.8 mg/dL (8.4-10.5) 12/22/16 06:40 Total Bilirubin 0.4 mg/dL (0.2-1.3) 12/22/16 06:40 AST 20 U/L (15-39) 12/22/16 06:40 ALT 34 U/L (7-56) 12/22/16 06:40 Alkaline Phosphatase 62 U/L (38-133) 12/22/16 06:40 Total Protein 6.4 g/dL (5.8-8.3) 12/22/16 06:40 Albumin 3.0 g/dL (3.0-4.8) 12/22/16 06:40 Globulin 3.3 gm/dL 12/22/16 06:40 Albumin/Globulin Ratio 0.9 (1.1-1.8) L 12/22/16 06:40 - Hospital Course Hospital Course: 61yo F with a PMH of coumadin induced skin necrosis, CVA, HTN, GERD, and DVT originally presented to [facility] ER with right knee pain and inability to ambulate. MRI in the ED was officially read as likely nondisplaced fracture of the lateral femoral condyle, and likely lateral and medial meniscus tears. Ortho was consulted and administered a steroid injection to the right knee. They also discussed with the patient, at length, that the only surgical intervention that could be offered to her is a total joint replacement due to the severe degenerative disease of the knee, though she is a high risk patient for any form of surgical intervention. At this time, she elected for conservative management with bracing and PT. Today, patient still has some pain in her right knee, but it is well controlled with medications, and is improving. She is able to ambulate, even without a walker. Scripts given for medication refills. All questions were answered to her satisfaction. Patient discharged to home with instructions to follow up with ortho and PCP. Discharge Exam - Head Exam Head Exam: ATRAUMATIC, NORMOCEPHALIC - Eye Exam Eye Exam: EOMI, Normal appearance - ENT Exam ENT Exam: Mucous Membranes Moist - Neck Exam Neck exam: Normal Inspection - Respiratory Exam Respiratory Exam: Clear to PA & Lateral. absent: Rales, Rhonchi, Wheezes - Cardiovascular Exam Cardiovascular Exam: RRR, +S1, +S2 - GI/Abdominal Exam GI & Abdominal Exam: Normal Bowel Sounds, Soft. absent: Tenderness - Extremities Exam Additional comments: Right knee: Tender lateral joint line, anterior joint line. Moderately tender popliteal fossa. Mildly tender calf. Knee is grossly deformed. Positive Gabriella right lateral meniscus. negative anterior/posterior drawer. Bilateral 4th finger distal phalanx amputation. - Neurological Exam Neurological exam: Alert, Oriented x3 - Psychiatric Exam Psychiatric exam: Normal Affect, Normal Mood - Additional Findings Additional findings: Antalgic gait Discharge Plan - Discharge Medications Prescriptions: Gabapentin [Neurontin] 300 mg PO TID #90 oxyCODONE [oxyCODONE Immediate Release Tab] 30 mg PO Q6 PRN #120 tab PRN Reason: Pain, Severe (8-10) Potassium Chloride 10 meq PO DAILY #30 tab.er.prt - Follow Up Plan Condition: STABLE Disposition: HOME/ ROUTINE Patient education suggested?: Yes Instructions: Patellar Fracture (DC), Fall Prevention (DC) Additional Instructions: 1. Continue to take all medications as prescribed 2. Use brace and walker whenever you walk to reduce load on knee and avoid falls 3. Follow up with ortho (Dr. Avila) as indicated 4. Follow up with PCP within 2 weeks 5. For any new or worsening symptoms or concerns contact PCP immediately or return to ER Referrals: John Amezquita MD [Primary Care Provider] - Sae Avila DO [Staff Provider] - <John Amezquita - Last Filed: 12/22/16 17:33> Provider - Provider Date of Admission: 12/19/16 17:18 Attending physician: Orestes Ho MD Primary care physician: John Amezquita MD Hospital Course - Lab Results Lab Results: Most Recent Lab Values WBC 6.5 10^3/ul (4.5-11.0) D 12/22/16 06:40 RBC 3.14 10^6/uL (3.5-6.1) L 12/22/16 06:40 Hgb 9.0 gm/dL (12.0-16.0) L 12/22/16 06:40 Hct 28.1 % (36.0-48.0) L 12/22/16 06:40 MCV 89.5 fL (80.0-105.0) 12/22/16 06:40 MCH 28.7 pg (25.0-35.0) 12/22/16 06:40 MCHC 32.0 g/dl (31.0-37.0) 12/22/16 06:40 RDW 16.6 % (11.5-14.5) H 12/22/16 06:40 Plt Count 225 10^3/uL (120.0-450.0) 12/22/16 06:40 MPV 8.8 fl (7.0-11.0) 12/22/16 06:40 Gran % 39.9 % (50.0-68.0) L 12/22/16 06:40 Lymph % (Auto) 46.5 % (22.0-35.0) H 12/22/16 06:40 [place] % (Auto) 7.2 % (1.0-6.0) H 12/22/16 06:40 Eos % (Auto) 5.8 % (1.5-5.0) H 12/22/16 06:40 Baso % (Auto) 0.6 % (0.0-3.0) 12/22/16 06:40 Gran # 2.60 (1.4-6.5) 12/22/16 06:40 Lymph # 3.0 (1.2-3.4) 12/22/16 06:40 [place] # 0.5 (0.1-0.6) 12/22/16 06:40 Eos # 0.4 (0.0-0.7) 12/22/16 06:40 Baso # 0.04 K/mm3 (0.0-2.0) 12/22/16 06:40 Neutrophils % (Manual) 32 % (50.0-70.0) L 12/20/16 06:30 Lymphocytes % (Manual) 59 % (22.0-35.0) H 12/20/16 06:30 Monocytes % (Manual) 8 % (1.0-6.0) H 12/20/16 06:30 Eosinophils % (Manual) 1 % (0.0-3.0) 12/20/16 06:30 Platelet Evaluation Normal (NORMAL) 12/20/16 06:30 Hypochromasia Slight 12/20/16 06:30 Anisocytosis (manual) Slight 12/20/16 06:30 Microcytosis (manual) Slight 12/20/16 06:30 PT 10.8 Seconds (9.9-11.8) 12/19/16 18:50 INR 1.00 (0.93-1.08) 12/19/16 18:50 APTT 23.8 Seconds (23.7-30.8) 12/19/16 18:50 Sodium 140 mmol/L (132-148) 12/22/16 06:40 Potassium 3.9 mmol/L (3.6-5.0) 12/22/16 06:40 Chloride 112 mmol/L (98-107) H 12/22/16 06:40 Carbon Dioxide 20 mmol/L (21-33) L 12/22/16 06:40 Anion Gap 12 (10-20) 12/22/16 06:40 BUN 14 mg/dL (7-21) 12/22/16 06:40 Creatinine 0.6 mg/dL (0.5-1.4) 12/22/16 06:40 Est GFR ( Amer) > 60 12/22/16 06:40 Est GFR (Non-Af Amer) > 60 12/22/16 06:40 Random Glucose 78 mg/dL (70-110) 12/22/16 06:40 Calcium 8.8 mg/dL (8.4-10.5) 12/22/16 06:40 Total Bilirubin 0.4 mg/dL (0.2-1.3) 12/22/16 06:40 AST 20 U/L (15-39) 12/22/16 06:40 ALT 34 U/L (7-56) 12/22/16 06:40 Alkaline Phosphatase 62 U/L (38-133) 12/22/16 06:40 Total Protein 6.4 g/dL (5.8-8.3) 12/22/16 06:40 Albumin 3.0 g/dL (3.0-4.8) 12/22/16 06:40 Globulin 3.3 gm/dL 12/22/16 06:40 Albumin/Globulin Ratio 0.9 (1.1-1.8) L 12/22/16 06:40 Attending/Attestation - Attestation I have personally seen and examined this patient.: Yes I have fully participated in the care of the patient.: Yes I have reviewed all pertinent clinical information, including history, physical exam and plan: Yes Notes (Text): 12/22/16 17:33 Medical record note made by the resident after discussion with my direction and input after the patient was personally seen and examined by me. I have reviewed the chart and agree that the record accurately reflects by personal performance of the history, physical exam, data review, and medical decision-making, in the course for the patient. I have also personally directed the plan of care.
--- NOTE | 2016-12-22 14:20 | PN ---
LOCATION: Room 367, bed 2. SUBJECTIVE: This is a 61-year-old female who came in with tremendous right knee pain. My impression is that she has advanced disabling osteoarthritis with genu valgum. The MRI showed multiple problems such as meniscus tear, multiple osteophytes with fracturing of the lateral femoral condyle, but none of this is a surgical intervention that would help the torn meniscus, osteophytes, or the fracture, which is a nonstructural fracture, it is more from the osteophytes which needs a total knee to get rid of all the reasons for her pain and inability to ambulate well, but the last night and yesterday, she did go to the bathroom and able to ambulate without assistance, but I am going to insist that she use her walker and reach out to the prosthetic department to get a lateral [employer] Portal Developer brace for her, where she can walk with more confidence. This may have to be delivered to her house as it takes time to get. So right now, she is feeling better. The effects of the shot of Depo-Medrol is working and that she could ambulate a little better and she might need a repeat injection in a couple of months until she decides to get her surgery for the total knee replacement. I would advise against any surgery on the meniscus because of osteophyte effect. She is only going to wake up with the tremendous arthritis that she has had already and nothing is going to get done except for risk of surgery, so I will follow her and see her as an outpatient. We will try to get her Websphere Portal Developer brace and increase her therapy to increase her strength and increase her endurance. Sae Avila DO
== END 2016-12-22 13:40 | disposition home or self-care (01) ==
LOC: ED 16:02 → ERH 17:18 → 3RNO 21:09
PROVIDERS: ADMIT Internal Medicine; ATTEND Internal Medicine
DX: M17.11 Unilateral primary osteoarthritis, right knee (principal); M21.061 Valgus deformity, not elsewhere classified, right knee; S89.91XA Unspecified injury of right lower leg, initial encounter; Z86.718 Personal history of other venous thrombosis and embolism; I10 Essential (primary) hypertension; M25.561 Pain in right knee; E87.6 Hypokalemia; D64.9 Anemia, unspecified; E78.5 Hyperlipidemia, unspecified; K21.9 Gastro-esophageal reflux disease without esophagitis; Z86.73 Personal history of transient ischemic attack (TIA), and cerebral infarction without residual deficits; Z98.84 Bariatric surgery status; Z90.710 Acquired absence of both cervix and uterus; D68.9 Coagulation defect, unspecified; W19.XXXA Unspecified fall, initial encounter; Y93.9 Activity, unspecified; Y92.009 Unspecified place in unspecified non-institutional (private) residence as the place of occurrence of the external cause; Y99.9 Unspecified external cause status
CPT/HCPCS: 20610; 36415; 73562; 73721; 80053; 85025; 85610; 85730; 96372; 97116; 97161; 99285; G0378; G8978; G8979; J1885; J2270; J3475

== ENCOUNTER 2017-01-12 16:13 | Inpatient (IN) | payer MEDICARE, OTHER ==
[2017-01-12 16:19] VITALS: BMI 29.3
--- NOTE | 2017-01-12 17:24 | ED PDOC ---
Arrival/HPI - General Chief Complaint: Altered Mental Status Time Seen by Provider: 01/12/17 16:35 - History of Present Illness Narrative History of Present Illness (Text): 01/12/17 17:22 Patient is a 61 y/o F with CVA, HTN, GERD, protein C deficiency with hx of DVT, on anticoagulants, presenting with altered mental status. Patient reports increased confusion x 2 days. Past Medical History - Infectious Disease Hx of Infectious Diseases: None - Tetanus Immunization Tetanus Immunization: Unknown - Cardiac Hx Hypertension: Yes - Pulmonary Hx Asthma: Yes - Neurological Hx Paralysis: No - HEENT Hx HEENT Disorder: No - Renal Hx Renal Disorder: No - Endocrine/Metabolic Hx Endocrine Disorders: No - Hematological/Oncological Hx Blood Transfusions: Yes Hx Blood Transfusion Reaction: No - Integumentary Hx Dermatological Disorder: No - Musculoskeletal/Rheumatological Hx Falls: Yes Hx Rhabdomyolysis: Yes - Gastrointestinal Hx Gastrointestinal Disorders: No - Genitourinary/Gynecological Hx Genitourinary Disorders: Yes Hx Urinary Tract Infection: Yes - Psychiatric Hx Emotional Abuse: No Hx Physical Abuse: No Hx Substance Use: No - Past Surgical History Past Surgical History: Non-Contributing - Surgical History Hx Amputation: Yes (bilateral middle fingers) Hx Gastric Bypass Surgery: Yes Hx Hysterectomy: Yes - Anesthesia Hx Anesthesia: Yes Hx Anesthesia Reactions: No Hx Malignant Hyperthermia: No - Suicidal Assessment Feels Threatened In Home Enviroment: No Family/Social History Family/Social History: No Known Family HX Smoking Status: Never Smoked Hx Alcohol Use: No Hx Substance Use: No Hx Substance Use Treatment: No Allergies/Home Meds Allergies/Adverse Reactions: Allergies Penicillins Allergy (Verified 12/19/16 16:09) ANGIOEDEMA/SHORTNESS OF BREATH ANGIOEDEMA SHORTNESS OF BREATH Home Medications: Home Meds Medication Instructions Recorded Confirmed RX: Pantoprazole [Protonix EC Tab] 40 mg PO BID 12/05/13 01/12/17 RX: Simvastatin 20 mg PO HS 11/07/15 01/12/17 RX: Valsartan [Diovan] 80 mg PO QPM 11/07/15 01/12/17 RX: Metoprolol Tartrate 25 mg PO BID 12/10/15 01/12/17 RX: Fluticasone Nasal [Flonase] 2 spr NS DAILY PRN 03/28/16 01/12/17 RX: Furosemide [Lasix] 40 mg PO DAILY 03/28/16 01/12/17 Review of Systems - Review of Systems Systems not reviewed;Unavailable: Altered Mental Status Respiratory: absent: SOB, Cough Cardiovascular: absent: Chest Pain Gastrointestinal: absent: Abdominal Pain, Constipation, Diarrhea, Vomiting Genitourinary Female: absent: Dysuria Skin: absent: Rash Neurological: absent: Headache Physical Exam Vital Signs Temp Pulse Resp BP Pulse Ox 01/12/17 18:17 99 H 16 133/78 99 01/12/17 16:40 98.7 F 98 H 16 71/36 L 97 01/12/17 16:24 99.3 F 90 18 93/57 L 100 Temperature: Afebrile Blood Pressure: Normal Pulse: Regular Respiratory Rate: Normal Appearance: Positive for: Well-Appearing, Non-Toxic, Comfortable Pain Distress: None Mental Status: Positive for: Lethargic Finger Stick Blood Glucose: 94 - Systems Exam Head: Present: Atraumatic, Normocephalic Pupils: Present: PERRL Extroacular Muscles: Present: EOMI Conjunctiva: Present: Normal Mouth: Present: Dry Neck: Present: Normal Range of Motion, Other (supple) Respiratory/Chest: Present: Clear to Auscultation, Good Air Exchange. No: Respiratory Distress Cardiovascular: Present: Regular Rate and Rhythm. No: Murmurs Abdomen: Present: Tenderness (RUQ). No: Distention, Rebound, Guarding Upper Extremity: Present: Normal Inspection Lower Extremity: Present: Edema (scant) Neurological: Present: Other (AAox2 (self and place)) Medical Decision Making ED Course and Treatment: 01/12/17 17:24 2L IVF infusing as patient appears dehydrated. EKG shows NSR at 93bpm with normal intervals and no ST changes. FS:94. Reyes catheter was placed with no return of urine. Labs significant for acidosis (ph 7.17) and renal failure (58/ 7.3) with electrolyte abnormalities (K 5.7, Phos:11.9) Treatment for hyperkalemia ordered. CK 1834. Bun/creatinine ratio is 7, which is more consistent with intrarenal disease. However, clinically patient appears dehydrated and has no urine output, more concerning for prerenal failure. CT abd/pelvis without contrast ordered due to RUQ pain. Cxray negative. CT head pending. Paged PMD Dr. Amezquita. Dr. Garcia, ICU aware and will sign out to next team to eval. 01/12/17 19:[address] Grant to follow-up CT head and CT abd/pelvis, and speak with Dr. Amezquita and ICU for final dispo - Lab Interpretations Lab Results: 01/12/17 17:50 01/12/17 17:50 Lab Results 01/12/17 17:50: pO2 119 H, VBG pH 7.17 L*, VBG pCO2 40.0, VBG HCO3 14.6 L, VBG Total CO2 15.8 L, VBG O2 Sat (Calc) 99.0 H, VBG Base Excess -13.1 L, VBG Potassium 5.8 H, Sodium 128.0 L, Chloride 99.0, Glucose 81, Lactate 0.6 L, FiO2 21.0, Venous Blood Potassium 5.8 H 01/12/17 17:50: Blood Type A POSITIVE, Antibody Screen Negative, BBK History Checked Patient has bt 01/12/17 17:50: Free T4 1.00, TSH 3rd Generation 1.50, Alcohol, Quantitative < 10 01/12/17 17:50: Sodium 129 L, Chloride 99, Potassium 5.7 H* D, Carbon Dioxide 14 L, Anion Gap 22 H, BUN 58 H, Creatinine 7.3 H, Est GFR ( Amer) 7, Est GFR (Non-Af Amer) 6, Random Glucose 78, Calcium 8.2 L, Phosphorus 11.9 H, Magnesium 2.0, Total Bilirubin 0.7, AST 101 H, ALT 34, Alkaline Phosphatase 74, Total Creatine Kinase , CK-MB (CK-2) 39.5 H, CK-MB (CK-2) % 0.6 L, Troponin I < 0.01 D, Total Protein 6.7, Albumin 3.7, Globulin 3.1, Albumin/Globulin Ratio 1.2, Lipase 70 01/12/17 17:50: PT 11.2, INR 1.04, APTT 31.5 H 01/12/17 17:50: WBC 7.4, RBC 2.92 L, Hgb 8.6 L, Hct 26.8 L, MCV 91.8, MCH 29.5, MCHC 32.1, RDW 15.9 H, Plt Count 157, MPV 9.5, Gran % 75.1 H, Lymph % (Auto) 11.1 L, [place] % (Auto) 12.6 H, Eos % (Auto) 1.1 L, Baso % (Auto) 0.1, Gran # 5.53 , Lymph # 0.8 L, [place] # 0.9 H, Eos # 0.1, Baso # 0.01 - RAD Interpretation Radiology Orders: 01/12/17 16:35 HEAD W/O CONTRAST [CT] Stat 01/12/17 16:36 CHEST PORTABLE [RAD] Stat 01/12/17 19:11 ABD & PELVIS W/O PO OR IV CONT [CT] Stat - Medication Orders Current Medication Orders: Albuterol Sulfate (Albuterol 0.083% Inhal Angella (2.5 Mg/3 Ml) Ud) 15 mg INH STAT STA Stop: 01/12/17 19:09 Calcium Gluconate (Calcium Gluconate Iv) 1,000 mg IVP STAT STA Stop: 01/12/17 18:55 Dextrose (Dextrose 5% In Water) 50 ml IV STAT STA Stop: 01/12/17 18:55 Sodium Chloride (Sodium Chloride 0.9%) 2,000 mls @ 999 mls/hr IV .Q2H1M STA Stop: 01/12/17 19:20 Last Admin: 01/12/17 17:30 Dose: 999 mls/hr Insulin Human Regular (Humulin R) 8 units IV STAT STA Stop: 01/12/17 18:55 Sodium Bicarbonate (Sodium Bicarbonate (8.4%) 50 Meq Syringe) 50 meq IVP STAT STA Stop: 01/12/17 19:04 Sodium Polystyrene Sulfonate (Kayexalate Oral Susp) 30 gm PO STAT STA Stop: 01/12/17 18:57 Disposition/Present on Arrival - Present on Arrival Any Indicators Present on Arrival: No History of DVT/PE: No History of Uncontrolled Diabetes: No Urinary Catheter: No History of Decub. Ulcer: No History Surgical Site Infection Following: None - Disposition Have Diagnosis and Disposition been Completed?: Yes Diagnosis: Acute renal failure, Rhabdomyolysis Disposition: HOSPITALIZED Disposition Time: 16:40 Patient Plan: ICU Patient Problems: Current Active Problems Problem Status Onset Acute renal failure Acute Rhabdomyolysis Acute Condition: CRITICAL Referrals: John Amezquita MD [Primary Care Provider] - Follow up with primary Forms: Mir Vracha (Cym[employer]es)
[2017-01-12] MEDS: Sodium Chloride 0.9% 2,000 ML IV STA (17:30)
[2017-01-12 18:11] LABS: BASO # 0.01 K/mm3 (0.0-2.0); BASO % 0.1 % (0.0-3.0); EOS # 0.1 (0.0-0.7); EOS % 1.1 % (1.5-5.0); GRAN # 5.53 (1.4-6.5); GRAN % 75.1 % (50.0-68.0); HEMOGLOBIN 8.6 g/dL (12.0-16.0); LYMPH # 0.8 (1.2-3.4); LYMPH % 11.1 % (22.0-35.0); MEAN CELL VOLUME 91.8 fl (80.0-105.0); MEAN CORPUSCULAR HEMOGLOBIN 29.5 pg (25.0-35.0); MEAN CORPUSCULAR HGB CONC 32.1 g/dl (31.0-37.0); MEAN PLATELET VOLUME 9.5 fl (7.0-11.0); MONO # 0.9 (0.1-0.6); MONO % 12.6 % (1.0-6.0); PLATELET COUNT 157 10^3/uL (120.0-450.0); RBC 2.92 10^6/uL (3.5-6.1); RED CELL DISTRIBUTION WIDTH 15.9 % (11.5-14.5); WHITE BLOOD COUNT 7.4 10^3/ul (4.5-11.0)
[2017-01-12 18:16] LABS: VENOUS BLOOD GAS BASE EXCESS -13.1 mmol/L (0.0-2.0); VENOUS BLOOD GAS PO2 119 mm/Hg (30-55)
[2017-01-12 18:23] LABS: ALB/GLOB RATIO 1.2 (1.1-1.8); ALBUMIN 3.7 g/dL (3.0-4.8); ALT/SGPT 34 U/L (7-56); AST/SGOT 101 U/L (15-39); BLOOD UREA NITROGEN 58 mg/dL (7-21); CALCIUM 8.2 mg/dL (8.4-10.5); GFR AFRICAN-AMERICAN 7; GFR NON-AFRICAN AMERICAN 6; LIPASE 70 U/L (23-300)
[2017-01-12 18:24] LABS: INR 1.04 (0.93-1.08); PARTIAL THROMBOPLASTIN TIME 31.5 Seconds (23.7-30.8); PROTHROMBIN TIME 11.2 Seconds (9.9-11.8)
[2017-01-12 18:31] LABS: VENOUS BLOOD PH 7.17 (7.32-7.43)
[2017-01-12 18:35] LABS: TROPONIN I < 0.01 ng/mL
[2017-01-12 18:52] LABS: CK-MB 39.5 ng/mL (0.0-3.6)
[2017-01-12] MEDS ORDERED: Insulin Regular 1 UNITS/0.01 ML ML IV STA (18:54)
[2017-01-12] MEDS ORDERED: Sod Polystyrene Sulf 15 gm/60 ml Oral Susp PO STA (18:56)
[2017-01-12] MEDS ORDERED: Sodium Bicarbonate (8.4%) 50 Meq Syringe IVP STA (19:03)
--- NOTE | 2017-01-12 19:07 | CARD ---
APPROVED REPORT EKG Measurement Heart [id number] <Conclusion> Normal sinus rhythm Low voltage QRS Borderline ECG
[2017-01-12] MEDS ORDERED: Albuterol 0.083% Inhal Sol (2.5 mg/3 mL) UD INH STA (19:08)
[2017-01-12 19:14] LABS: CK MB% 0.6 % (2.5-3.0)
[2017-01-12 19:59] LABS: URINE BILIRUBIN NEGATIVE (NEGATIVE); URINE BLOOD LARGE (NEGATIVE); URINE GLUCOSE (UA) NEGATIVE (NEGATIVE); URINE LEUKOCYTE ESTERASE NEGATIVE Leu/uL (NEGATIVE); URINE NITRATE NEGATIVE (NEGATIVE); URINE PROTEIN 30 mg/dL (<30 mg/dL); URINE UROBILINOGEN 0.2 E.U./dL (<1 E.U./dL)
[2017-01-12 20:01] LABS: URINE COLOR YELLOW (YELLOW)
[2017-01-12 20:02] LABS: URINE APPEARANCE TURBID (CLEAR)
[2017-01-12] MEDS ORDERED: Albuterol-Ipratrop 3 mg / 0.5 (3 ml) UD IH PRN (20:05)
[2017-01-12 20:06] LABS: URINE RBC 0 - 2 /hpf (0-2); URINE WBC 0 - 2 /hpf (0-6)
[2017-01-12 20:15] LABS: BARBITURATES, UR NEGATIVE (NEGATIVE); BENZODIAZEPINES, UR NEGATIVE (NEGATIVE); OPIATES, UR POSITIVE (NEGATIVE); PHENCYCLIDINE, UR NEGATIVE (NEGATIVE)
[2017-01-12] MEDS ORDERED: Sodium Chloride 0.9% 1,000 ML IV SCH (20:15)
--- NOTE | 2017-01-12 20:27 | CT ---
EXAM: CT Head Without Intravenous Contrast EXAM DATE/TIME: 01/12/2017 4:35 PM CLINICAL HISTORY: The patient age is 61 years old and is female; Signs and symptoms; Altered mental status/memory loss Facility exam id and description: Ct heads head w/o contrast TECHNIQUE: Axial computed tomography images of the head/brain without intravenous contrast. All CT scans at this facility use one or more dose reduction techniques, viz.: automated exposure control; ma/kV adjustment per patient size (including targeted exams where dose is matched to indication; i.e. head); or iterative reconstruction technique. COMPARISON: No relevant prior studies available. FINDINGS: Artifacts: Motion artifact limits this study. Brain: Asymmetric hypodense nonspecific gliosis is visualized within the inferior left frontal white matter. Ischemic change is within the differential.The white-wisdom differentiation is otherwise preserved demonstrating no acute territorial type infarct. There is mild prominence of the ventricles and sulci, compatible with atrophy. No acute intracranial hemorrhage is seen. Calcifications are identified along the falx. There is a small calcification along the left side of the tentorium. No edema. Midline shift: There is no midline shift. Ventricles: See above. Bones/joints: The calvarium demonstrates no evidence for a depressed fracture. There is a nonspecific sclerotic lesion within the right frontal bone measuring 0.7 x 0.5 cm. Soft tissues: No acute abnormality. Vasculature: There is atherosclerotic calcification of the cavernous internal carotid arteries. Sinuses: Unremarkable as visualized. No acute sinusitis. Mastoid air cells: No mastoid effusion. IMPRESSION: 1. Asymmetric hypodense nonspecific gliosis is visualized within the inferior left frontal white matter. Ischemic change is within the differential. If further evaluation is clinically indicated, an MRI of the brain is recommended. 2. No acute intracranial hemorrhage. 3. Mild atrophy. 4. Incidental/non-acute findings are described above.
[2017-01-12] MEDS ORDERED: Sodium Bicarbonate 8.4% 150 MEQ in Dextrose 5% In Water 1,000 ML IV ONE (20:28)
[2017-01-12] MEDS ORDERED: oxyCODONE 30 mg Immediate Release Tab PO PRN (20:29)
--- NOTE | 2017-01-12 20:42 | CT ---
EXAM: CT Abdomen and Pelvis Without Intravenous Contrast EXAM DATE/TIME: 01/12/2017 7:11 PM CLINICAL HISTORY: The patient age is 61 years old and is female; Pain; Abdominal pain; Acute; Additional info: Renal failure with acidosis, ruq pain Facility exam id and description: Ct abdpelscon abd pelvis w/o po or iv cont TECHNIQUE: Axial computed tomography images of the abdomen and pelvis without intravenous contrast. All CT scans at this facility use one or more dose reduction techniques, viz.: automated exposure control; ma/kV adjustment per patient size (including targeted exams where dose is matched to indication; i.e. head); or iterative reconstruction technique. Coronal and sagittal reformatted images were created and reviewed. COMPARISON: CT - ABD PELVIS W/O PO OR IV CONT 06/05/2016 1:46:12 AM FINDINGS: Lower thorax: There is a small hiatal hernia with significant wall thickening which extends into the distal esophagus. This wall thickening may be inflammatory, although additional pathology cannot be excluded. This has progressed. There is a 4 mm nodule within the right middle lobe on series 2 image 4. There is an equivocal 5 mm nodule in the right middle lobe on series 2 image 5. A 2 mm nodule is identified in the left lower lobe on series 2 image 28. ABDOMEN: Liver: No mass. Gallbladder and bile ducts: Isodense sludge and a small gallstone are visualized within the gallbladder. Pancreas: Atrophic changes are noted of the pancreas. Spleen: No splenomegaly. Adrenals: No mass. Kidneys and ureters: There is a hypodense probable right renal cyst measuring 3.0 cm in diameter. A similar finding is visualized on the prior study. No hydronephrosis bilaterally. Stomach and bowel: Colonic diverticula are identified, without acute inflammatory stranding of the adjacent mesentery. Postoperative changes are identified involving the stomach. Additional postoperative changes are identified involving small bowel within the left lower quadrant. Appendix: There is distention of the distal appendix, which is also elongated. The appendix measures 9-10 mm in diameter, which is a progression. There is no acute periappendiceal stranding, although early appendicitis cannot be excluded. PELVIS: Bladder: A Reyes catheter is coiled within the bladder. The bladder is decompressed. Reproductive: The uterus is absent. ABDOMEN and PELVIS: Intraperitoneal space: No free air. Bones/joints: Osteopenia. There is grade I anterolisthesis of L5 and S1. Hypertrophic degenerative changes are noted within the spine. There is mild scoliosis of the lumbar spine. Soft tissues: Mild edematous change is seen within the visualized subcutaneous tissues, which has progressed. There is minimal herniation of fat is in the umbilicus. Within the subcutaneous tissues inferior to this region, there is stable irregular calcification. Vasculature: There is an IVC filter. No abdominal aortic aneurysm. Lymph nodes: Nonspecific enlarged inguinal lymph nodes are seen bilaterally on the right side, this lymph node measures 2.4 x 1.0 cm. Mildly enlarged external iliac chain lymph nodes are seen bilaterally, with mild progression. There is a borderline enlarged left periaortic retroperitoneal lymph node measuring 1.0 x 0.9 cm, which has mildly increased in size. IMPRESSION: 1. Isodense sludge and a small gallstone are visualized within the gallbladder. 2. There is distention of the distal appendix, which is also elongated. The appendix measures 9-10 mm in diameter, which is a progression. There is no acute periappendiceal stranding, although early appendicitis cannot be excluded. Clinical correlation is recommended. 3. There is a hypodense probable right renal cyst measuring 3.0 cm in diameter. A similar finding is visualized on the prior study. 4. There is a small hiatal hernia with significant wall thickening which extends into the distal esophagus. This wall thickening may be inflammatory, although additional pathology cannot be excluded. This has progressed. Clinical correlation and possible upper endoscopy are recommended. 5. Nonspecific enlarged inguinal lymph nodes are seen bilaterally on the right side, this lymph node measures 2.4 x 1.0 cm. Mildly enlarged external iliac chain lymph nodes are seen bilaterally, with mild progression. 6. There is a borderline enlarged left periaortic retroperitoneal lymph node measuring 1.0 x 0.9 cm, which has mildly increased in size. 7. Mild edematous change is seen within the visualized subcutaneous tissues, which has progressed. 8. Diverticulosis. 9. A few small lung nodules are visualized. A non-emergent chest CT is suggested. 10. Additional CT findings described above.
--- NOTE | 2017-01-12 21:00 | CP.PCM.HP ---
<Kim Brian - Last Filed: 01/13/17 01:03> History of Present Illness - History of Present Illness History of Present Illness: Kim Brian DO, PGY-1 61 year old female with a past medical history Protein C defiency, warfarin skin necrosis, CVA, hypertension, DVT, and a recent admission for right knee pain treated with intra-articular knee injection who presents with 2 days of altered mental status, dizziness, headache, decreased PO intake, and dyspnea. She states that in the last few weeks she has felt exceptionally fatigued, is ambulating less, and has more pain in her lower extremities. She states she has practically been bed-ridden for the past 2.5 weeks. She denies any fever, chills, night sweats, or visual disturbances. PMH: Coumadin necrosis, CVA, HTN, GERD, and DVT PSH: Right arthroscopic lateral meniscectomy, B/L mastectomy, B/L ring finger amputation, Hysterectomy for fibroids, gastric bypass, IVC filter Soc: Denies tobacco, alcohol, or illicit drug use. Lives with a friend/roomate, does not seem to have strong social support All: Penicillin FHx: Mother breast CA, Father unknown CA, Sister unknown CA Present on Admission - Present on Admission Any Indicators Present on Admission: Yes History of DVT/PE: Yes History of Uncontrolled Diabetes: No Urinary Catheter: No Review of Systems - Constitutional Constitutional: Chills, Fatigue, Headache, Lethargy, Malaise - EENT Eyes: absent: Change in Vision, Diplopia, Sees Flashes Ears: absent: Tinnitus, Disequilibrium Nose/Mouth/Throat: absent: Nasal Congestion, Change in Voice, Dysphagia - Cardiovascular Cardiovascular: Edema. absent: Chest Pain - Respiratory Respiratory: Dyspnea. absent: Chest Congestion, Change in Mucous Color - Gastrointestinal Gastrointestinal: absent: Change in Bowel Habits, Diarrhea, Vomiting - Genitourinary Genitourinary: absent: Change in Urinary Stream, Nocturia, Urinary Urgency - Musculoskeletal Musculoskeletal: Limited Range of Motion (right LE), Muscle Cramps - Integumentary Integumentary: Swelling - Neurological Neurological: Dizziness, Headaches. absent: Focal Weakness - Psychiatric Psychiatric: Depression, Memory Loss Past Patient History - Infectious Disease Hx of Infectious Diseases: None - Tetanus Immunizations Tetanus Immunization: Unknown - Past Medical History & Family History Past Medical History?: Yes - Past Social History Smoking Status: Never Smoked - CARDIAC Hx Hypertension: Yes - PULMONARY Hx Asthma: Yes - NEUROLOGICAL Hx Paralysis: No - HEENT Hx HEENT Problems: No - RENAL Hx Chronic Kidney Disease: No - ENDOCRINE/METABOLIC Hx Endocrine Disorders: No - HEMATOLOGICAL/ONCOLOGICAL Hx Blood Transfusions: Yes Hx Blood Transfusion Reaction: No - INTEGUMENTARY Hx Dermatological Problems: No - MUSCULOSKELETAL/RHEUMATOLOGICAL Hx Falls: Yes Hx Rhabdomyolysis: Yes - GASTROINTESTINAL Hx Gastrointestinal Disorders: No - GENITOURINARY/GYNECOLOGICAL Hx Genitourinary Disorders: Yes Hx Urinary Tract Infection: Yes - PSYCHIATRIC Hx Emotional Abuse: No Hx Physical Abuse: No Hx Substance Use: No - SURGICAL HISTORY Hx Amputation: Yes (bilateral middle fingers) Hx Gastric Bypass Surgery: Yes Hx Hysterectomy: Yes - ANESTHESIA Hx Anesthesia: Yes Hx Anesthesia Reactions: No Hx Malignant Hyperthermia: No Meds Allergies/Adverse Reactions: Allergies Allergy/AdvReac Type Severity Reaction Status Date / Time Penicillins Allergy ANGIOEDEMA/SHORTNESS Verified 01/12/17 22:09 OF BREATH Physical Exam - Constitutional Appears: No Acute Distress, Confused - Head Exam Head Exam: ATRAUMATIC, NORMOCEPHALIC - Eye Exam Eye Exam: EOMI, PERRL - ENT Exam ENT Exam: Mucous Membranes Dry, Normal Oropharynx - Neck Exam Neck exam: Positive for: Normal Inspection. Negative for: Tenderness, Thyromegaly - Respiratory Exam Respiratory Exam: Clear to Auscultation Bilateral, NORMAL BREATHING PATTERN. absent: Rales - Cardiovascular Exam Cardiovascular Exam: Tachycardia, +S1, +S2 - GI/Abdominal Exam GI & Abdominal Exam: Diminished Bowel Sounds. absent: Distended, Guarding, Rebound - Rectal Exam Rectal Exam: Deferred - Extremities Exam Additional comments: bilateral LE swelling, LE tender to palpation, skin very dry - Neurological Exam Neurological exam: Altered (patient requires frequent reorientation, and repetition in answering questions), CN II-XII Intact - Psychiatric Exam Psychiatric exam: Depressed - Skin Additional comments: tenting of UE, extremely dry skin Results - Vital Signs Recent Vital Signs: Last Vital Signs Temp 98.7 F 01/12/17 16:40 Pulse 101 H 01/12/17 20:02 Resp 18 01/12/17 20:02 BP 111/40 L 01/12/17 20:02 Pulse Ox 100 01/12/17 20:02 - Labs Result Diagrams: 01/12/17 17:50 01/12/17 17:50 Labs: Laboratory Results - last 24 hr 01/12/17 01/12/17 19:38 19:38 Urine Color Yellow Urine Appearance Turbid Urine pH 6.0 Ur Specific [place] 1.020 Urine Protein 30 H Urine Glucose (UA) Negative Urine Ketones Negative Urine Blood Large H Urine Nitrate Negative Urine Bilirubin Negative Urine Urobilinogen 0.2 Ur Leukocyte Esterase Negative Urine RBC 0 - 2 Urine WBC 0 - 2 Hyaline Casts 3-5 Urine Opiates Screen Positive H Urine Methadone Screen Negative Ur Barbiturates Screen Negative Ur Phencyclidine Scrn Negative Ur Amphetamines Screen Negative U Benzodiazepines Scrn Negative U Oth Cocaine Metabols Negative U Cannabinoids Screen Negative Assessment & Plan - Assessment and Plan (Free Text) Assessment: 61 yo female with a past medical of warfarin skin necrosis, DVT, CVA, protein C deficiency, and recent immobility secondary to right knee pain admitted to ICU for JOSEFINA, uremia, secondary to rhabdomyolysis. Plan: 1) JOSEFINA and uremia secondary to rhabdomyolysis - Initial CK was 7,084, Cr 7.3, BUN 56 - Bicarbonate drip 150 mEq with D5 at a rate of 150 cc/hr to improve the metabolic acidosis and rhabdomyolysis. Last EF was 70%. - Monitor UO with strict I/O - Hold ARB and all other antihypertensives given patient is already hypotensive and would not want to decrease renal perfusion at this point. - Renal consult for JOSEFINA 2) AMS likely secondary to uremia - Blood ammonia level pending - CT head demonstrates asymmetric hypodense nonspecific gliosis visualized within the inferior left frontal white matter. Ischemic change is within the differential. If further evaluation is clinically indicated, an MRI of the brain is recommended. Otherwise, no acute intracranial hemorrhage. Mild atrophy. 3) Hyperkalemia: - K was 5.7, will continue to monitor with serial CMP - In ED patient was given 30 gm of Kayexalate and 1 g of CaGluconate 4) Hypertension: Holding home antihypertensives given patient is hypotensive and would not want to decrease renal perfusion 5) Protein C defiency, history of DVTs, and warfarin skin necrosis - Currently on Heparin 5,000 SC q12h - Hematology consult to see what would be the best anticoagulation for this patient Renal consult 7) DVT seen on US Therapeutic dose of heparin started - Date & Time Date: 01/12/17 Time: 20:20 <Sawyer Zamarripa P - Last Filed: 01/13/17 04:44> Results - Vital Signs Recent Vital Signs: Last Vital Signs Temp 97.3 F L 01/12/17 23:14 Pulse 104 H 01/12/17 23:32 Resp 16 01/12/17 23:32 BP 130/95 H 01/12/17 23:14 Pulse Ox 100 01/12/17 21:44 - Labs Result Diagrams: 01/12/17 17:50 01/12/17 17:50 Labs: Laboratory Results - last 24 hr 01/12/17 01/12/17 19:38 19:38 Urine Color Yellow Urine Appearance Turbid Urine pH 6.0 Ur Specific [place] 1.020 Urine Protein 30 H Urine Glucose (UA) Negative Urine Ketones Negative Urine Blood Large H Urine Nitrate Negative Urine Bilirubin Negative Urine Urobilinogen 0.2 Ur Leukocyte Esterase Negative Urine RBC 0 - 2 Urine WBC 0 - 2 Hyaline Casts 3-5 Urine Opiates Screen Positive H Urine Methadone Screen Negative Ur Barbiturates Screen Negative Ur Phencyclidine Scrn Negative Ur Amphetamines Screen Negative U Benzodiazepines Scrn Negative U Oth Cocaine Metabols Negative U Cannabinoids Screen Negative Attending/Attestation - Attestation I have personally seen and examined this patient.: Yes I have fully participated in the care of the patient.: Yes I have reviewed all pertinent clinical information: Yes Notes (Text): 01/13/17 04:34 * Acute on chronic renal insufficiency, pre renal clinically and positive rhabdo , use of ARB and k, with clinical uremia, acidosis, hyper phosphatemia, anemia , mild hyperkalemia * R popletial dvt * h/o protein c def with with skin and digit necrosis, lovenox stopped in about a month * Significant dehydration Plan * Isotonic bicarb drip should improve hyperkalemia, acidosis, clearance of rhabdo, hydrate * Avoid nephrotoxic meds * Therapeutic lovenox * TIBC, stool occult blood * Nephrology consult * Hematology consult. * See orders for detail.
--- NOTE | 2017-01-12 21:08 | ED PDOC ---
Physical Exam Vital Signs Temp Pulse Resp BP Pulse Ox 01/12/17 20:02 101 H 18 111/40 L 100 01/12/17 18:17 99 H 16 133/78 99 01/12/17 16:40 98.7 F 98 H 16 71/36 L 97 01/12/17 16:24 99.3 F 90 18 93/57 L 100 Finger Stick Blood Glucose: 94 Medical Decision Making ED Course and Treatment: 01/12/17 19:00 Patient signed out to me by Dr. Morrow. Pending CT scan head and abdomen. Patient with noted history of past CVA, hypertension, GERD, protein C deficiency , DVT who presented with AMS. Patient was diagnosed with renal failure dehydration. Patient was admitted to ICU. Results of CT scan which shows no acute process at this time. CT abdomen still pending. residential lawn specialist and Telecommunications Administrator Dr. Mercado to the emergency department for evaluation to admit patient to ICU. Case discussed with Dr. Ho who requested patient be placed on hospitalist service. Patient diagnosed with acute renal failure, rhabdomyolysis, and AMS. - Lab Interpretations Lab Results: 01/12/17 17:50 01/12/17 17:50 Lab Results 01/12/17 17:50: pO2 119 H, VBG pH 7.17 L*, VBG pCO2 40.0, VBG HCO3 14.6 L, VBG Total CO2 15.8 L, VBG O2 Sat (Calc) 99.0 H, VBG Base Excess -13.1 L, VBG Potassium 5.8 H, Sodium 128.0 L, Chloride 99.0, Glucose 81, Lactate 0.6 L, FiO2 21.0, Venous Blood Potassium 5.8 H 01/12/17 17:50: Blood Type A POSITIVE, Antibody Screen Negative, BBK History Checked Patient has bt 01/12/17 17:50: Free T4 1.00, TSH 3rd Generation 1.50, Alcohol, Quantitative < 10 01/12/17 17:50: Sodium 129 L, Chloride 99, Potassium 5.7 H* D, Carbon Dioxide 14 L, Anion Gap 22 H, BUN 58 H, Creatinine 7.3 H, Est GFR ( Amer) 7, Est GFR (Non-Af Amer) 6, Random Glucose 78, Calcium 8.2 L, Phosphorus 11.9 H, Magnesium 2.0, Total Bilirubin 0.7, AST 101 H, ALT 34, Alkaline Phosphatase 74, Total Creatine Kinase 7084 H, CK-MB (CK-2) 39.5 H, CK-MB (CK-2) % 0.6 L, Troponin I < 0.01 D, Total Protein 6.7, Albumin 3.7, Globulin 3.1, Albumin/ Globulin Ratio 1.2, Lipase 70 01/12/17 17:50: PT 11.2, INR 1.04, APTT 31.5 H 01/12/17 17:50: WBC 7.4, RBC 2.92 L, Hgb 8.6 L, Hct 26.8 L, MCV 91.8, MCH 29.5, MCHC 32.1, RDW 15.9 H, Plt Count 157, MPV 9.5, Gran % 75.1 H, Lymph % (Auto) 11.1 L, [place] % (Auto) 12.6 H, Eos % (Auto) 1.1 L, Baso % (Auto) 0.1, Gran # 5.53 , Lymph # 0.8 L, [place] # 0.9 H, Eos # 0.1, Baso # 0.01 I have reviewed the lab results: Yes - RAD Interpretation Radiology Orders: 01/12/17 16:35 HEAD W/O CONTRAST [CT] Stat 01/12/17 16:36 CHEST PORTABLE [RAD] Stat 01/12/17 19:11 ABD & PELVIS W/O PO OR IV CONT [CT] Stat - Medication Orders Current Medication Orders: Acetaminophen (Tylenol 325mg Tab) 650 mg PO Q6H PRN PRN Reason: Fever >100.4 F Gabapentin (Neurontin) 300 mg PO TID ALEXI PRN Reason: Protocol Heparin Sodium (Porcine) (Heparin) 5,000 units SC Q12 ALEXI PRN Reason: Protocol Sodium Bicarbonate 150 meq/ (Dextrose) 250 mls @ 150 mls/hr IV .Q1H40M ALEXI Oxycodone HCl (Oxycodone Immediate Release Tab) 30 mg PO Q6 PRN PRN Reason: Pain, severe (8-10) Pantoprazole Sodium (Protonix Inj) 40 mg IVP DAILY ALEXI Discontinued Medications Albuterol Sulfate (Albuterol 0.083% Inhal Angella (2.5 Mg/3 Ml) Ud) 15 mg INH STAT STA Stop: 01/12/17 19:09 Last Admin: 01/12/17 19:49 Dose: 15 mg Calcium Gluconate (Calcium Gluconate Iv) 1,000 mg IVP STAT STA Stop: 01/12/17 18:55 Last Admin: 01/12/17 19:43 Dose: 1,000 mg Sodium Chloride (Sodium Chloride 0.9%) 2,000 mls @ 999 mls/hr IV .Q2H1M STA Stop: 01/12/17 19:20 Last Admin: 01/12/17 17:30 Dose: 999 mls/hr Sodium Bicarbonate (Sodium Bicarbonate (8.4%) 50 Meq Syringe) 50 meq IVP STAT STA Stop: 01/12/17 19:04 Last Admin: 01/12/17 19:44 Dose: 50 meq Sodium Polystyrene Sulfonate (Kayexalate Oral Susp) 30 gm PO STAT STA Stop: 01/12/17 18:57 Last Admin: 01/12/17 19:44 Dose: 30 gm - Scribe Statement The provider has reviewed the documentation as recorded by the Sherwin Lowery Provider Scribe Attestation: All medical record entries made by the Leonaibchris were at my direction and personally dictated by me. I have reviewed the chart and agree that the record accurately reflects my personal performance of the history, physical exam, medical decision making, and the department course for this patient. I have also personally directed, reviewed, and agree with the discharge instructions and disposition. Disposition/Present on Arrival - Present on Arrival Any Indicators Present on Arrival: No History of DVT/PE: No History of Uncontrolled Diabetes: No Urinary Catheter: No History of Decub. Ulcer: No History Surgical Site Infection Following: None - Disposition Have Diagnosis and Disposition been Completed?: Yes Diagnosis: Acute renal failure, Rhabdomyolysis Disposition: ELOPEMENT - ER ONLY Disposition Time: 21:00 Patient Problems: Current Active Problems Problem Status Onset Acute renal failure Acute Rhabdomyolysis Acute Condition: CRITICAL
[2017-01-12] MEDS: Heparin 25,000units in D5W /250 ML BAG IV PRN (23:42)
[2017-01-13 00:30] LABS: IRON 16 ug/dL (45-180)
[2017-01-13 00:39] LABS: % IRON SATURATION 8 % (20-55); TOTAL IRON BINDING CAPACITY 201 ug/dL (265-497)
[2017-01-13] MEDS ORDERED: Albuterol-Ipratrop 3 mg / 0.5 (3 ml) UD IH SCH (02:00)
[2017-01-13] MEDS ORDERED: Oxycodone/Acetaminophen 5/325 mg Tab PO STA (06:00)
[2017-01-13 06:01] LABS: ARTERIAL BLOOD GAS HCO3 20.7 mmol/L (21-28); ARTERIAL BLOOD GAS O2 SAT 96.3 % (95-98); ARTERIAL BLOOD GAS PCO2 45 mm/Hg (35-45); ARTERIAL BLOOD GAS PH 7.27 (7.35-7.45); ARTERIAL BLOOD GAS TCO2 22.1 mmol.L (22-28)
[2017-01-13] MEDS: Sodium Chloride 0.9% 2,000 ML IV STA (06:16)
[2017-01-13 06:31] LABS: BASO # 0.01 K/mm3 (0.0-2.0); BASO % 0.2 % (0.0-3.0); EOS # 0.2 (0.0-0.7); EOS % 3.4 % (1.5-5.0); GRAN # 3.32 (1.4-6.5); GRAN % 66.9 % (50.0-68.0); HEMOGLOBIN 9.2 g/dL (12.0-16.0); LYMPH # 0.9 (1.2-3.4); MEAN CELL VOLUME 90.4 fl (80.0-105.0); MEAN CORPUSCULAR HEMOGLOBIN 29.4 pg (25.0-35.0); MEAN CORPUSCULAR HGB CONC 32.5 g/dl (31.0-37.0); MEAN PLATELET VOLUME 9.7 fl (7.0-11.0); MONO # 0.5 (0.1-0.6); MONO % 10.5 % (1.0-6.0); PLATELET COUNT 171 10^3/uL (120.0-450.0); RBC 3.13 10^6/uL (3.5-6.1); RED CELL DISTRIBUTION WIDTH 15.9 % (11.5-14.5)
[2017-01-13 06:39] LABS: INR 1.03 (0.93-1.08); PROTHROMBIN TIME 11.1 Seconds (9.9-11.8)
[2017-01-13 06:42] LABS: ALB/GLOB RATIO 1.1 (1.1-1.8); ALBUMIN 3.7 g/dL (3.0-4.8); CALCIUM 8.2 mg/dL (8.4-10.5)
[2017-01-13] MEDS ORDERED: Sodium Chloride 0.9% 1,000 ML IV STA ×2 (09:14→10:30)
--- NOTE | 2017-01-13 09:14 | RAD ---
HISTORY: altered COMPARISON: 11/19/2016 FINDINGS: LUNGS: No active pulmonary disease. PLEURA: No significant pleural effusion identified, no pneumothorax apparent. CARDIOVASCULAR: Normal. OSSEOUS STRUCTURES: No significant abnormalities. VISUALIZED UPPER ABDOMEN: Normal. OTHER FINDINGS: None. IMPRESSION: No active disease.
[2017-01-13] MEDS: Sodium Chloride 0.9% 1,000 ML IV SCH ×2 (09:36→18:02)
--- NOTE | 2017-01-13 10:10 | US ---
HISTORY: Leg pain and swelling. Evaluate for DVT PHYSICIAN(S): Stewart Aden MD. TECHNIQUE: Duplex sonography and color-flow Doppler with graded compression were used to evaluate the deep venous systems of both lower extremities. FINDINGS: There is focal adherent thrombus noted in the right popliteal vein. The right femoral vein and right common femoral vein are patent and compressible. There is no sonographic evidence of deep venous thrombosis the visualized segments of left lower extremity. IMPRESSION: Focal adherent thrombus in the right popliteal vein.
[2017-01-13 12:03] LABS: MAGNESIUM 1.9 mg/dL (1.7-2.2)
--- NOTE | 2017-01-13 12:14 | CP.PCM.CON ---
History of Present Illness - History of Present Illness History of Present Illness: Covering Dr. Zendejas 61 year old female with a history of gastric bypass, chronic anemia, hypercoagulable state with MTHFR mutation (heterozygous) ?protein C deficiency ( may be inaccurate as pt may have been on coumadin during testing), CVA, DVT s/p IVC filter, coumadin skin necrosis, recent intraarticular knee injection for pain, admitted with AMS and fatigue, found to have rhabdomyolysis, JOSEFINA, and DVT. The patient reports to immobility due to her knee pain and fatigue. She denies shortness of breath and chest pain. A lower extremity venous duplex revealed a right popliteal thrombus. She is on a heparin drip currently and notes to feeling better. Past medical history: gastric bypass, chronic anemia, hypercoagulable state with protein C deficiency s/p CVA and DVT s/p IVC filter Past surgical history: Gastric bypass Family history: Denies hematologic and oncologic problems Social history: Denies tobacco, alcohol, and illicit drug use. Allergies: PCN Review of systems: All remaining review of systems including HEENT, cardiovascular, respiratory, gastrointestinal, genitourinary, musculoskeletal, dermatologic, neurologic, and psychiatric are negative unless mentioned in the HPI. Past Patient History - Infectious Disease Hx of Infectious Diseases: None - Tetanus Immunizations Tetanus Immunization: Unknown - Past Medical History & Family History Past Medical History?: Yes - Past Social History Smoking Status: Never Smoked - CARDIAC Hx Hypertension: Yes - PULMONARY Hx Asthma: Yes - NEUROLOGICAL Hx Paralysis: No - HEENT Hx HEENT Problems: No - RENAL Hx Chronic Kidney Disease: No - ENDOCRINE/METABOLIC Hx Endocrine Disorders: No - HEMATOLOGICAL/ONCOLOGICAL Hx Blood Transfusions: Yes Hx Blood Transfusion Reaction: No - INTEGUMENTARY Hx Dermatological Problems: No - MUSCULOSKELETAL/RHEUMATOLOGICAL Hx Falls: Yes Hx Rhabdomyolysis: Yes - GASTROINTESTINAL Hx Gastrointestinal Disorders: No - GENITOURINARY/GYNECOLOGICAL Hx Genitourinary Disorders: Yes Hx Urinary Tract Infection: Yes - PSYCHIATRIC Hx Emotional Abuse: No Hx Physical Abuse: No Hx Substance Use: No - SURGICAL HISTORY Hx Amputation: Yes (bilateral middle fingers) Hx Gastric Bypass Surgery: Yes Hx Hysterectomy: Yes - ANESTHESIA Hx Anesthesia: Yes Hx Anesthesia Reactions: No Hx Malignant Hyperthermia: No Meds Allergies/Adverse Reactions: Allergies Allergy/AdvReac Type Severity Reaction Status Date / Time Penicillins Allergy ANGIOEDEMA/SHORTNESS Verified 01/12/17 22:09 OF BREATH - Medications Medications: Current Medications Acetaminophen (Tylenol 325mg Tab) 650 mg PO Q6H PRN PRN Reason: Fever >100.4 F Gabapentin (Neurontin) 300 mg PO TID [facility] PRN Reason: Protocol Last Admin: 01/13/17 11:25 Dose: Not Given Heparin Sodium/Dextrose (Heparin 25,000 Units/250ml In D5w) 25,000 units in 250 mls @ 16.248 mls/hr IV .[id number] PRN; Protocol; 18 UNITS/KG/HR PRN Reason: ADJUST RATE PER PROTOCOL Last Admin: 01/12/17 23:42 Dose: 18 units/kg/hr, 16.248 mls/hr Sodium Chloride (Sodium Chloride 0.9%) 1,000 mls @ 150 mls/hr IV .Q6H40M [facility] Last Admin: 01/13/17 09:36 Dose: 150 mls/hr Oxycodone HCl (Oxycodone Immediate Release Tab) 30 mg PO Q6 PRN PRN Reason: Pain, severe (8-10) Pantoprazole Sodium (Protonix Inj) 40 mg IVP DAILY [facility] Last Admin: 01/13/17 09:36 Dose: 40 mg Physical Exam - Head Exam Head Exam: ATRAUMATIC - Eye Exam Eye Exam: Normal appearance - ENT Exam ENT Exam: Mucous Membranes Dry - Respiratory Exam Respiratory Exam: NORMAL BREATHING PATTERN - Cardiovascular Exam Cardiovascular Exam: +S1, +S2 - GI/Abdominal Exam GI & Abdominal Exam: Normal Bowel Sounds - Extremities Exam Extremities exam: Positive for: pedal edema - Neurological Exam Neurological exam: Oriented x3 - Psychiatric Exam Psychiatric exam: Normal Affect, Normal Mood - Skin Skin Exam: Warm Results - Vital Signs Recent Vital Signs: Last Vital Signs Temp 97.2 F L 01/13/17 06:00 Pulse 84 01/13/17 08:00 Resp 12 01/13/17 07:52 BP 130/95 H 01/12/17 23:14 Pulse Ox 100 01/12/17 21:44 - Labs Result Diagrams: 01/13/17 05:45 01/13/17 05:45 Labs: Laboratory Results - last 24 hr 01/12/17 01/12/17 01/13/17 19:38 19:38 05:45 WBC RBC Hgb Hct MCV MCH MCHC RDW Plt Count MPV Gran % Lymph % (Auto) [place] % (Auto) Eos % (Auto) Baso % (Auto) Gran # Lymph # [place] # Eos # Baso # PT INR APTT pCO2 pO2 HCO3 ABG pH ABG Total CO2 ABG O2 Saturation ABG Base Excess ABG Potassium Sodium Chloride Glucose Lactate FiO2 Potassium Carbon Dioxide Anion Gap BUN Creatinine Est GFR ( Amer) Est GFR (Non-Af Amer) Random Glucose Calcium Phosphorus Magnesium Total Bilirubin AST ALT Alkaline Phosphatase Ammonia 19 Total Protein Albumin Globulin Albumin/Globulin Ratio Arterial Blood Potassium Urine Color Yellow Urine Appearance Turbid Urine pH 6.0 Ur Specific [place] 1.020 Urine Protein 30 H Urine Glucose (UA) Negative Urine Ketones Negative Urine Blood Large H Urine Nitrate Negative Urine Bilirubin Negative Urine Urobilinogen 0.2 Ur Leukocyte Esterase Negative Urine RBC 0 - 2 Urine WBC 0 - 2 Hyaline Casts 3-5 Urine Opiates Screen Positive H Urine Methadone Screen Negative Ur Barbiturates Screen Negative Ur Phencyclidine Scrn Negative Ur Amphetamines Screen Negative U Benzodiazepines Scrn Negative U Oth Cocaine Metabols Negative U Cannabinoids Screen Negative 01/13/17 01/13/17 01/13/17 05:45 05:45 05:45 WBC 5.0 D RBC 3.13 L Hgb 9.2 L Hct 28.3 L MCV 90.4 MCH 29.4 MCHC 32.5 RDW 15.9 H Plt Count 171 MPV 9.7 Gran % 66.9 Lymph % (Auto) 19.0 L [place] % (Auto) 10.5 H Eos % (Auto) 3.4 Baso % (Auto) 0.2 Gran # 3.32 Lymph # 0.9 L [place] # 0.5 Eos # 0.2 Baso # 0.01 PT 11.1 INR 1.03 APTT pCO2 45 pO2 75.0 L HCO3 20.7 L ABG pH 7.27 L ABG Total CO2 22.1 ABG O2 Saturation 96.3 ABG Base Excess -6.2 L ABG Potassium 3.7 Sodium 136.0 Chloride 100.0 Glucose 104 Lactate 1.1 FiO2 21.0 Potassium Carbon Dioxide Anion Gap BUN Creatinine Est GFR ( Amer) Est GFR (Non-Af Amer) Random Glucose Calcium Phosphorus Magnesium Total Bilirubin AST ALT Alkaline Phosphatase Ammonia Total Protein Albumin Globulin Albumin/Globulin Ratio Arterial Blood Potassium 3.7 Urine Color Urine Appearance Urine pH Ur Specific [place] Urine Protein Urine Glucose (UA) Urine Ketones Urine Blood Urine Nitrate Urine Bilirubin Urine Urobilinogen Ur Leukocyte Esterase Urine RBC Urine WBC Hyaline Casts Urine Opiates Screen Urine Methadone Screen Ur Barbiturates Screen Ur Phencyclidine Scrn Ur Amphetamines Screen U Benzodiazepines Scrn U Oth Cocaine Metabols U Cannabinoids Screen 01/13/17 01/13/17 01/13/17 05:45 08:00 11:50 WBC RBC Hgb Hct MCV MCH MCHC RDW Plt Count MPV Gran % Lymph % (Auto) [place] % (Auto) Eos % (Auto) Baso % (Auto) Gran # Lymph # [place] # Eos # Baso # PT INR APTT 69.2 H pCO2 pO2 HCO3 ABG pH ABG Total CO2 ABG O2 Saturation ABG Base Excess ABG Potassium Sodium 135 Chloride 97 Glucose Lactate FiO2 Potassium 3.6 Carbon Dioxide 21 Anion Gap 21 H BUN 55 H Creatinine 4.4 H Est GFR ( Amer) 12 Est GFR (Non-Af Amer) 10 Random Glucose 99 Calcium 8.2 L Phosphorus 9.5 H Magnesium 1.9 Total Bilirubin 0.5 AST 91 H ALT 36 Alkaline Phosphatase 86 Ammonia Total Protein 7.1 Albumin 3.7 Globulin 3.4 Albumin/Globulin Ratio 1.1 Arterial Blood Potassium Urine Color Urine Appearance Urine pH Ur Specific [place] Urine Protein Urine Glucose (UA) Urine Ketones Urine Blood Urine Nitrate Urine Bilirubin Urine Urobilinogen Ur Leukocyte Esterase Urine RBC Urine WBC Hyaline Casts Urine Opiates Screen Urine Methadone Screen Ur Barbiturates Screen Ur Phencyclidine Scrn Ur Amphetamines Screen U Benzodiazepines Scrn U Oth Cocaine Metabols U Cannabinoids Screen Assessment & Plan (1) DVT (deep venous thrombosis) Assessment and Plan: likely provoked from immobility agree with heparin drip for now given recurrent clotting, would benefit from lifelong anticoagulation outpatient determination of anticoagulation would depend on renal function recovery outpatient f/u with Dr. Zendejas Status: Acute (2) Anemia Assessment and Plan: will check ferritin, retic count, b12, folate to further characterize Status: Acute (3) Coagulopathy Assessment and Plan: on heparin Thank you for this interesting consult. Status: Chronic Priority: High
[2017-01-13] MEDS: Heparin 25,000units in D5W /250 ML BAG IV PRN (13:57)
--- NOTE | 2017-01-13 13:57 | CP.PCM.PN ---
<HO DÍAZ - Last Filed: 01/13/17 13:50> Subjective - Date & Time of Evaluation Date of Evaluation: 01/13/17 Time of Evaluation: 07:30 - Subjective Subjective: Ho Díaz DO PGY1 - ICU Progress Note Patient seen and examined at bedside. She was admitted last night for JOSEFINA with acidosis 2/2 rhabdomyolysis and current DVT, started on fluid resucitation and heparin drip. Today, she denies CP, SOB, cough, wheeze, abdominal pain, N/V/D/C , F/C. She admits to some confusion, though significantly improved since yesterday. Objective - Vital Signs/Intake and Output Vital Signs (last 24 hours): Temp Pulse Resp BP Pulse Ox 97.2 F L 87 19 120/76 100 01/13/17 06:00 01/13/17 12:50 01/13/17 12:43 01/13/17 12:30 01/12/17 21:44 Intake and Output: 01/13/17 01/13/17 06:59 18:59 Intake Total 2490 Output Total 600 Balance 1890 - Medications Medications: Current Medications Acetaminophen (Tylenol 325mg Tab) 650 mg PO Q6H PRN PRN Reason: Fever >100.4 F Gabapentin (Neurontin) 300 mg PO TID ALEXI PRN Reason: Protocol Last Admin: 01/13/17 11:25 Dose: Not Given Heparin Sodium/Dextrose (Heparin 25,000 Units/250ml In D5w) 25,000 units in 250 mls @ 16.248 mls/hr IV .[id number] PRN; Protocol; 18 UNITS/KG/HR PRN Reason: ADJUST RATE PER PROTOCOL Last Admin: 01/12/17 23:42 Dose: 18 units/kg/hr, 16.248 mls/hr Sodium Chloride (Sodium Chloride 0.9%) 1,000 mls @ 150 mls/hr IV .Q6H40M [facility] Last Admin: 01/13/17 09:36 Dose: 150 mls/hr Oxycodone HCl (Oxycodone Immediate Release Tab) 30 mg PO Q6 PRN PRN Reason: Pain, severe (8-10) Pantoprazole Sodium (Protonix Inj) 40 mg IVP DAILY [facility] Last Admin: 01/13/17 09:36 Dose: 40 mg - Labs Labs: 01/13/17 05:45 01/13/17 05:45 PT 11.1 Seconds (9.9-11.8) 01/13/17 05:45 INR 1.03 (0.93-1.08) 01/13/17 05:45 APTT 69.2 Seconds (23.7-30.8) H 01/13/17 08:00 - Constitutional Appears: Non-toxic, No Acute Distress - Head Exam Head Exam: ATRAUMATIC, NORMOCEPHALIC - Eye Exam Eye Exam: EOMI, Normal appearance, PERRL - ENT Exam ENT Exam: Mucous Membranes Moist, Normal Exam - Respiratory Exam Respiratory Exam: Clear to Ausculation Bilateral. absent: Rales, Rhonchi, Wheezes - Cardiovascular Exam Cardiovascular Exam: RRR, +S1, +S2 - GI/Abdominal Exam GI & Abdominal Exam: Soft Additional comments: Mild LLQ tenderness. 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, CVA, HTN, and DVT, admitted to the ICU for AMS 2/2 renal failure 2/2 rhabdomyolysis and active DVT Plan: Neuro: - Patient was admitted with AMS, and she still feels somewhat confused, but is AAOx3, with grossly intact neurological exam - Continue to monitor mental status CV: - Patient received approximately 2.5L fluid resuscitation overnight, but remains hypotensive today - Continue volume resuscitation with repeat bolus and maintenance fluids NS@150 - Hold all home antihypertensives and sedative/analgesic medications that could also exacerbate hypotension - Active DVT noted, but not complaining of SOB, on therapeutic heparin drip - Maintain MAP >65 Pulm: - Maintaining O2 saturation well on RA - Maintain O2 sat >90% GI: - Tolerating PO - Protonix Ppx Renal: - JOSEFINA 2/2 to rhambdomyolysis, likely the cause of the AMS. 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 - Active DVT noted on duplex yesterday, on therapeutic heparin drip - DVT is "provoked" with a history of hypercoagulability and a period of immobility due to pain - Will likely require lifelong anticoagulation - Hem/Onc consulted, all recs appreciated ID: - Afebrile, no leukocytosis - Continue to monitor Ppx: Therapeutic heparin for active DVT, protonix for GI Patient seen, discussed, and reviewed with attending <Jose OVALLE,Bryant H - Last Filed: 01/13/17 16:43> Objective - Vital Signs/Intake and Output Vital Signs (last 24 hours): Temp Pulse Resp BP Pulse Ox 97.2 F L 87 19 120/76 100 01/13/17 06:00 01/13/17 12:50 01/13/17 12:43 01/13/17 12:30 01/12/17 21:44 Intake and Output: 01/13/17 01/13/17 06:59 18:59 Intake Total 2490 260 Output Total 600 Balance 1890 260 - Medications Medications: Current Medications Acetaminophen (Tylenol 325mg Tab) 650 mg PO Q6H PRN PRN Reason: Fever >100.4 F Last Admin: 01/13/17 13:56 Dose: 650 mg Gabapentin (Neurontin) 300 mg PO TID ALEXI PRN Reason: Protocol Last Admin: 01/13/17 11:25 Dose: Not Given Heparin Sodium/Dextrose (Heparin 25,000 Units/250ml In D5w) 25,000 units in 250 mls @ 16.248 mls/hr IV .[id number] PRN; Protocol; 18 UNITS/KG/HR PRN Reason: ADJUST RATE PER PROTOCOL Last Titration: 01/13/17 15:30 Dose: 16 units/kg/hr, 14.442 mls/hr Sodium Chloride (Sodium Chloride 0.9%) 1,000 mls @ 150 mls/hr IV .Q6H40M [facility] Last Admin: 01/13/17 09:36 Dose: 150 mls/hr Oxycodone HCl (Oxycodone Immediate Release Tab) 30 mg PO Q6 PRN PRN Reason: Pain, severe (8-10) Pantoprazole Sodium (Protonix Inj) 40 mg IVP DAILY [facility] Last Admin: 01/13/17 09:36 Dose: 40 mg - Labs Labs: 01/13/17 05:45 01/13/17 05:45 PT 11.1 Seconds (9.9-11.8) 01/13/17 05:45 INR 1.03 (0.93-1.08) 01/13/17 05:45 APTT 81.5 Seconds (23.7-30.8) H* 01/13/17 14:20 Attending/Attestation - Attestation I have personally seen and examined this patient.: Yes I have fully participated in the care of the patient.: Yes I have reviewed all pertinent clinical information, including history, physical exam and plan: Yes Notes (Text): 01/13/17 16:35 61 y/o F w/ JOSEFINA secondary to pre-renal causes and dehydration/ vomiting Normal saline IV fluids x 6 liters . SBP improved now with IV fluids . JOSEFINA improving and urine output also picking up. New DVT noted and on anticoagulation for Protein C def. Will need lifelong anticoagulation . Will need further evaluation for elevated CK , rhabdo and r/o other causes per nephrology. cc time 45 min
[2017-01-13 14:48] LABS: CK MB% 0.5 % (2.5-3.0); CK-MB 27.2 ng/mL (0.0-3.6)
--- NOTE | 2017-01-13 15:03 | CP.PCM.CON ---
History of Present Illness - History of Present Illness History of Present Illness: Initial Nephrology Consultation: Assessment: Critical Non-oliguric Acute Kidney Injury (N17.9) likely due to Shock, Hypovolemia/pre- renal state, hypotension, rhabdomyolysis>>>Acute tubular necrosis : IMPROVED Anemia (D64.9), Hyperphosphatemia (E83.39), HTN (I12.0) hx of protein C def Hyponatremia, Hyperkalemia Acute High anion gap metabolic acidosis with superimposed respi acidosis Altered mental status Recurrent Rhabdomyolysis (cause ? statins versus autoimmune) Plan No acute need for renal replacement therapy at this time. Patient not on ACEI/ARB due to JOSEFINA Monitor Input/Output, daily weights and renal function with basic metabolic panel continue with aggressive IVF resus with normal saline, maintain hemodynamics stable. can d/c bicarb drip as last pH 7.27. its role in rhabdo is debatable d/c neurontin as risk of neurotoxicity due to accumulation in renal failure Check urine analysis, spot protein/creatinine and albumin/creatinine ratio, Urine Na. Cr. Monitor CPK, uric acid. Phos will check Lupus serology, anti-JAMIE antibody. eventually she will need rheumatology/Neuro/EMG/muscle biopsy to eval for the causes of recurrent rhabdo. avoid Statins in future. Dose meds/antibiotics for reduced GFR. Avoid fleets enema/magnesium based laxatives. Avoid nephrotoxins/NSAIDs/ iodinated contrast (unless needed emergently) Glycemic control Further work up/management as per primary team Thanks for allowing me to participate in care of your patient. Will follow patient with you. Please call if any Qs Dr Junior Szymanski Office: [phone] Chief Complaint; weakness and feels thirsty, confusion Reason for consult; JOSEFINA HPI: Pt is a 61 y/o F with hx of hypertension, protein C def, warfarin necrosis , CVA, DVT s/p IVC fiter, had many incidences of JOSEFINA and rhabdomyolysis over last 1-2 years, had recent knee injection 2 weeks ago, had been feeling sick for last few days with impaired ambulation and unable to eat/drink due to mobility status. she lives alone at home. mostly walks with cane. also found to be be counfused and brought to ER. She has been hypotensive and acidotic with JOSEFINA and elevated CPK hence renal consulted. Denies chest pain, palpitation, shortness of breath, leg swelling Denies blood or bubbles in urine Denies OTC/herbal meds or NSAIDs No recent iodinated contrast exposure. had episodes of low BP since came to ER. ROS: she was somewhat lethargic when seen but was able to provide most hx. Constitutional Symptoms: Denies fever. No chills. No Recent Weight Changes Eyes: denies change in vision, denies watery eyes, denies double vision Ears/Nose/Mouth/Throat: Denies Abnormal Taste. No Bad breath no Bad Taste. Feels Thirsty a lot Cardiovascular: No chest pain. There is no shortness of breath. No palpitations. Pulmonary: No shortness of breath no cough. Gastrointestinal: denies abdominal pain No nausea. No vomiting. Denies change in bowel habits. Denies Bleeding Genitourinary: No Change in force of strain when urinating. No increase in urinary frequency. No pain while urinating. Denies blood in urine. Neurological: Denies headaches. No dizziness. Denies loss of balance. c/o overall weakness, denies tingling/numbness Dermatological: No Rash or Bruising or ulcers. Psychiatric: Denies Anxiety. No depression. Denies hallucinations. Rheumatological: Denies Joint swelling Endocrine: c/o tiredness/Fatigue denies Heat/Cold Intolerance. All other negative Physical Examination: General Appearance: Comfortable, in no acute respiratory distress, co-operative . Ill appearing, somewhat lethargic Vitals reviewed and noted as below. BP in 70-80s when seen Head; Atraumatic, normocephalic ENT: no ulcers no thrush. Tongue is midline. Oropharynx: no rash or ulcers. very dry oral mucosa and coated EYES: Pupils are equal, round and reactive to light accommodation. Eye muscles and extraocular movement intact. Sclera is anicteric. Neck; supple no lymphadenopathy, no thyromegaly or bruit Lungs: Normal respiratory rate/effort. Breath sounds bilateral equal and clear Heart: Normal rate. s1s2 normal. No rub or gallop. Extremities: no edema. No varicose veins Neurological: Patient is somewhat lethargic but oriented to person, place and time. No focal deficit. Strength bilateral appropriate and equal except has generalized weakness. Skin: Warm and dry. Decreased turgor. No rash. Palpitation: Normal elasticity for age Abdomen: Abdomen is soft. Bowel sounds +. There is no abdominal tenderness, no guarding/rigidity no organomegaly Psych: normal insight and normal affect/mood MSK: no joint tenderness or swelling. Digits and nails normal, no deformity : kidney or bladder not palpable Labs/imaging/EKG reviewed. Past medical history, past surgical history, family history, social history, allergy reviewed and noted as below Family hx: no hx of CKD. Rest non-contributory Work up UA 100 protein, large blood but no RBC CT: rt renal cyst otherwise unremarkable Past Patient History - Infectious Disease Hx of Infectious Diseases: None - Tetanus Immunizations Tetanus Immunization: Unknown - Past Medical History & Family History Past Medical History?: Yes - Past Social History Smoking Status: Never Smoked - CARDIAC Hx Hypertension: Yes - PULMONARY Hx Asthma: Yes - NEUROLOGICAL Hx Paralysis: No - HEENT Hx HEENT Problems: No - RENAL Hx Chronic Kidney Disease: No - ENDOCRINE/METABOLIC Hx Endocrine Disorders: No - HEMATOLOGICAL/ONCOLOGICAL Hx Blood Transfusions: Yes Hx Blood Transfusion Reaction: No - INTEGUMENTARY Hx Dermatological Problems: No - MUSCULOSKELETAL/RHEUMATOLOGICAL Hx Falls: Yes Hx Rhabdomyolysis: Yes - GASTROINTESTINAL Hx Gastrointestinal Disorders: No - GENITOURINARY/GYNECOLOGICAL Hx Genitourinary Disorders: Yes Hx Urinary Tract Infection: Yes - PSYCHIATRIC Hx Emotional Abuse: No Hx Physical Abuse: No Hx Substance Use: No - SURGICAL HISTORY Hx Amputation: Yes (bilateral middle fingers) Hx Gastric Bypass Surgery: Yes Hx Hysterectomy: Yes - ANESTHESIA Hx Anesthesia: Yes Hx Anesthesia Reactions: No Hx Malignant Hyperthermia: No Meds Allergies/Adverse Reactions: Allergies Allergy/AdvReac Type Severity Reaction Status Date / Time Penicillins Allergy ANGIOEDEMA/SHORTNESS Verified 01/12/17 22:09 OF BREATH - Medications Medications: Current Medications Acetaminophen (Tylenol 325mg Tab) 650 mg PO Q6H PRN PRN Reason: Fever >100.4 F Gabapentin (Neurontin) 300 mg PO TID ALEXI PRN Reason: Protocol Last Admin: 01/13/17 11:25 Dose: Not Given Heparin Sodium/Dextrose (Heparin 25,000 Units/250ml In D5w) 25,000 units in 250 mls @ 16.248 mls/hr IV .[id number] PRN; Protocol; 18 UNITS/KG/HR PRN Reason: ADJUST RATE PER PROTOCOL Last Admin: 01/12/17 23:42 Dose: 18 units/kg/hr, 16.248 mls/hr Sodium Chloride (Sodium Chloride 0.9%) 1,000 mls @ 150 mls/hr IV .Q6H40M [facility] Last Admin: 01/13/17 09:36 Dose: 150 mls/hr Oxycodone HCl (Oxycodone Immediate Release Tab) 30 mg PO Q6 PRN PRN Reason: Pain, severe (8-10) Pantoprazole Sodium (Protonix Inj) 40 mg IVP DAILY [facility] Last Admin: 01/13/17 09:36 Dose: 40 mg Results - Vital Signs Recent Vital Signs: Last Vital Signs Temp 97.2 F L 01/13/17 06:00 Pulse 87 01/13/17 12:50 Resp 19 01/13/17 12:43 BP 120/76 01/13/17 12:30 Pulse Ox 100 01/12/17 21:44 - Labs Result Diagrams: 01/13/17 05:45 01/13/17 05:45 Labs: Laboratory Results - last 24 hr 01/12/17 01/12/17 01/13/17 19:38 19:38 05:45 WBC RBC Hgb Hct MCV MCH MCHC RDW Plt Count MPV Gran % Lymph % (Auto) [place] % (Auto) Eos % (Auto) Baso % (Auto) Gran # Lymph # Walton # Eos # Baso # PT INR APTT pCO2 pO2 HCO3 ABG pH ABG Total CO2 ABG O2 Saturation ABG Base Excess ABG Potassium Sodium Chloride Glucose Lactate FiO2 Potassium Carbon Dioxide Anion Gap BUN Creatinine Est GFR ( Amer) Est GFR (Non-Af Amer) Random Glucose Calcium Phosphorus Magnesium Total Bilirubin AST ALT Alkaline Phosphatase Ammonia 19 Total Protein Albumin Globulin Albumin/Globulin Ratio Arterial Blood Potassium Urine Color Yellow Urine Appearance Turbid Urine pH 6.0 Ur Specific [place] 1.020 Urine Protein 30 H Urine Glucose (UA) Negative Urine Ketones Negative Urine Blood Large H Urine Nitrate Negative Urine Bilirubin Negative Urine Urobilinogen 0.2 Ur Leukocyte Esterase Negative Urine RBC 0 - 2 Urine WBC 0 - 2 Hyaline Casts 3-5 Urine Opiates Screen Positive H Urine Methadone Screen Negative Ur Barbiturates Screen Negative Ur Phencyclidine Scrn Negative Ur Amphetamines Screen Negative U Benzodiazepines Scrn Negative U Oth Cocaine Metabols Negative U Cannabinoids Screen Negative 01/13/17 01/13/17 01/13/17 05:45 05:45 05:45 WBC 5.0 D RBC 3.13 L Hgb 9.2 L Hct 28.3 L MCV 90.4 MCH 29.4 MCHC 32.5 RDW 15.9 H Plt Count 171 MPV 9.7 Gran % 66.9 Lymph % (Auto) 19.0 L Walton % (Auto) 10.5 H Eos % (Auto) 3.4 Baso % (Auto) 0.2 Gran # 3.32 Lymph # 0.9 L Walton # 0.5 Eos # 0.2 Baso # 0.01 PT 11.1 INR 1.03 APTT pCO2 45 pO2 75.0 L HCO3 20.7 L ABG pH 7.27 L ABG Total CO2 22.1 ABG O2 Saturation 96.3 ABG Base Excess -6.2 L ABG Potassium 3.7 Sodium 136.0 Chloride 100.0 Glucose 104 Lactate 1.1 FiO2 21.0 Potassium Carbon Dioxide Anion Gap BUN Creatinine Est GFR ( Amer) Est GFR (Non-Af Amer) Random Glucose Calcium Phosphorus Magnesium Total Bilirubin AST ALT Alkaline Phosphatase Ammonia Total Protein Albumin Globulin Albumin/Globulin Ratio Arterial Blood Potassium 3.7 Urine Color Urine Appearance Urine pH Ur Specific [place] Urine Protein Urine Glucose (UA) Urine Ketones Urine Blood Urine Nitrate Urine Bilirubin Urine Urobilinogen Ur Leukocyte Esterase Urine RBC Urine WBC Hyaline Casts Urine Opiates Screen Urine Methadone Screen Ur Barbiturates Screen Ur Phencyclidine Scrn Ur Amphetamines Screen U Benzodiazepines Scrn U Oth Cocaine Metabols U Cannabinoids Screen 01/13/17 01/13/17 01/13/17 05:45 08:00 11:50 WBC RBC Hgb Hct MCV MCH MCHC RDW Plt Count MPV Gran % Lymph % (Auto) [place] % (Auto) Eos % (Auto) Baso % (Auto) Gran # Lymph # [place] # Eos # Baso # PT INR APTT 69.2 H pCO2 pO2 HCO3 ABG pH ABG Total CO2 ABG O2 Saturation ABG Base Excess ABG Potassium Sodium 135 Chloride 97 Glucose Lactate FiO2 Potassium 3.6 Carbon Dioxide 21 Anion Gap 21 H BUN 55 H Creatinine 4.4 H Est GFR ( Amer) 12 Est GFR (Non-Af Amer) 10 Random Glucose 99 Calcium 8.2 L Phosphorus 9.5 H Magnesium 1.9 Total Bilirubin 0.5 AST 91 H ALT 36 Alkaline Phosphatase 86 Ammonia Total Protein 7.1 Albumin 3.7 Globulin 3.4 Albumin/Globulin Ratio 1.1 Arterial Blood Potassium Urine Color Urine Appearance Urine pH Ur Specific [place] Urine Protein Urine Glucose (UA) Urine Ketones Urine Blood Urine Nitrate Urine Bilirubin Urine Urobilinogen Ur Leukocyte Esterase Urine RBC Urine WBC Hyaline Casts Urine Opiates Screen Urine Methadone Screen Ur Barbiturates Screen Ur Phencyclidine Scrn Ur Amphetamines Screen U Benzodiazepines Scrn U Oth Cocaine Metabols U Cannabinoids Screen
--- NOTE | 2017-01-13 18:04 | CP.PCM.PN ---
<JORDON HARDY - Last Filed: 01/13/17 17:59> Subjective - Date & Time of Evaluation Date of Evaluation: 01/13/17 Time of Evaluation: 07:00 - Subjective Subjective: MEDICINE PROGRESS NOTE: Pt seen and assessed at bedside. Patient was admitted overnight after an episode of AMS and found to have rhabdomyolysis and current DVT. Pt endorses that her memory of the past 48 hours is a little "foggy". Pt reports no new complaints and denies an acute events since her admission yesterday evening. She denies headache, fever, changes in her vision, dysphagia, chest pain, palpitations, SOB, cough, abdominal pain, N/V, or diarrhea. Objective - Vital Signs/Intake and Output Vital Signs (last 24 hours): Temp Pulse Resp BP Pulse Ox 97.2 F L 80 14 90/44 L 90 L 01/13/17 06:00 01/13/17 16:30 01/13/17 16:30 01/13/17 16:30 01/13/17 16:30 Intake and Output: 01/13/17 01/13/17 06:59 18:59 Intake Total 2490 260 Output Total 600 Balance 1890 260 - Medications Medications: Current Medications Acetaminophen (Tylenol 325mg Tab) 650 mg PO Q6H PRN PRN Reason: Fever >100.4 F Last Admin: 01/13/17 13:56 Dose: 650 mg Gabapentin (Neurontin) 300 mg PO TID ALEXI PRN Reason: Protocol Last Admin: 01/13/17 11:25 Dose: Not Given Heparin Sodium/Dextrose (Heparin 25,000 Units/250ml In D5w) 25,000 units in 250 mls @ 16.248 mls/hr IV .[id number] PRN; Protocol; 18 UNITS/KG/HR PRN Reason: ADJUST RATE PER PROTOCOL Last Titration: 01/13/17 15:30 Dose: 16 units/kg/hr, 14.442 mls/hr Sodium Chloride (Sodium Chloride 0.9%) 1,000 mls @ 150 mls/hr IV .Q6H40M [facility] Last Admin: 01/13/17 09:36 Dose: 150 mls/hr Oxycodone HCl (Oxycodone Immediate Release Tab) 30 mg PO Q6 PRN PRN Reason: Pain, severe (8-10) Pantoprazole Sodium (Protonix Inj) 40 mg IVP DAILY [facility] Last Admin: 01/13/17 09:36 Dose: 40 mg - Labs Labs: 01/13/17 05:45 01/13/17 05:45 PT 11.1 Seconds (9.9-11.8) 01/13/17 05:45 INR 1.03 (0.93-1.08) 01/13/17 05:45 APTT 81.5 Seconds (23.7-30.8) H* 01/13/17 14:20 - Constitutional Appears: Non-toxic, No Acute Distress - Head Exam Head Exam: NORMAL INSPECTION, NORMOCEPHALIC - Eye Exam Eye Exam: EOMI, Normal appearance, PERRL Pupil Exam: NORMAL ACCOMODATION - ENT Exam ENT Exam: Mucous Membranes Moist, Normal Exam - Neck Exam Neck Exam: Full ROM - Respiratory Exam Respiratory Exam: Clear to Ausculation Bilateral, NORMAL BREATHING PATTERN. absent: Prolonged Expiratory Phase, Rales, Rhonchi, Wheezes, Respiratory Distress - Cardiovascular Exam Cardiovascular Exam: REGULAR RHYTHM, RRR, +S1, +S2. absent: Tachycardia, Murmur - GI/Abdominal Exam GI & Abdominal Exam: Soft, Normal Bowel Sounds. absent: Tenderness Additional comments: LLQ TTP - Exam Exam: absent: Bladder Distension - Back Exam Back Exam: absent: CVA tenderness (L), CVA tenderness (R) - Neurological Exam Neurological Exam: Alert, Awake, Oriented x3 Neuro motor strength exam: Left Upper Extremity: 5, Right Upper Extremity: 5, Left Lower Extremity: 5, Right Lower Extremity: 5 - Psychiatric Exam Psychiatric exam: Normal Affect, Normal Mood - Skin Skin Exam: Dry, Intact, Normal Color, Warm Assessment and Plan - Assessment and Plan (Free Text) Assessment: 61 year old AA female with a past medical history significant for protein C deficiency, coumadin induced skin necrosis, CVA, HTN, and DVT, who presented with AMS and found to have rhabdomyolysis and active DVT Plan: 1. Acute Kidney Injury -rhabdomyolysis likely etiology -CPK: 5843, which is down from 7084 on admission -creatinine downtrending from 7.3 to 4.4 -IVF: Normal Saline at 150mls/hr -strict intake and output -discontinued bicarb drip, per nephro -discontinue gabapentin due to nephrotoxicity -Full nephrology work up, including Lupus serology and anti-JAMIE antibody, for recurrent rhabdo pending -Renal diet -Nephrology consulted, all recommendations appreciated 2. Right Popliteal Vein Thrombosis -history of protein c deficiency and warfarin induced skin necrosis -started on therapeutic heparin drip -will likely need lifetime anticoagulation -hem/onc consulted, all recommendations appreciated 3. GI Prophylaxis -Protonix Patient seen and case discussed with attending, Dr. Kathe Garcia. <Kathe Garcia - Last Filed: 01/17/17 15:37> Objective - Vital Signs/Intake and Output Vital Signs (last 24 hours): Temp Pulse Resp BP Pulse Ox 98.3 F 81 20 144/98 H 99 01/16/17 08:05 01/16/17 08:05 01/16/17 08:05 01/16/17 08:05 01/16/17 11:46 - Labs Labs: 01/16/17 05:00 01/16/17 07:00 PT 11.3 Seconds (9.9-11.8) 01/16/17 07:00 INR 1.05 (0.93-1.08) 01/16/17 07:00 APTT 52.5 Seconds (23.7-30.8) H 01/15/17 13:00 Attending/Attestation - Attestation I have personally seen and examined this patient.: Yes I have fully participated in the care of the patient.: Yes I have reviewed all pertinent clinical information, including history, physical exam and plan: Yes Notes (Text): I have seen and examined the patient at bedside. Agree with the above note with the following additions/ exceptions: Briefly this is 61 year old female with history of protein C deficiency, coumadin induced skin necrosis, CVA, HTN, and DVT, who presented with AMS and found to have rhabdomyolysis and acute popliteal DVT. She was started on IVF. Will stop bicarb as acidosis has resolved. Will dc neurontin and statins. Nephrology consult appreciated. Continue heparin for DVT. Discussed with Dr Lindsey and Dr Szymanski. Upon discharge patient will follow up with Dr Amezquita. Dr Kathe Garcia
[2017-01-13] MEDS ORDERED: Sodium Chloride 0.9% 2,000 ML IV STA (19:20)
[2017-01-13 21:20] LABS: BASO # 0.02 K/mm3 (0.0-2.0); BASO % 0.4 % (0.0-3.0); EOS # 0.2 (0.0-0.7); EOS % 5.1 % (1.5-5.0); GRAN # 2.41 (1.4-6.5); GRAN % 51.5 % (50.0-68.0); HEMOGLOBIN 9.1 g/dL (12.0-16.0); LYMPH # 1.4 (1.2-3.4); LYMPH % 29.6 % (22.0-35.0); MEAN CELL VOLUME 90.5 fl (80.0-105.0); MEAN CORPUSCULAR HEMOGLOBIN 29.9 pg (25.0-35.0); MEAN CORPUSCULAR HGB CONC 33.1 g/dl (31.0-37.0); MEAN PLATELET VOLUME 9.3 fl (7.0-11.0); MONO # 0.6 (0.1-0.6); MONO % 13.4 % (1.0-6.0); PLATELET COUNT 165 10^3/uL (120.0-450.0); RBC 3.04 10^6/uL (3.5-6.1); RED CELL DISTRIBUTION WIDTH 15.7 % (11.5-14.5); WHITE BLOOD COUNT 4.7 10^3/ul (4.5-11.0)
[2017-01-13 21:21] LABS: ALB/GLOB RATIO 1.1 (1.1-1.8); ALBUMIN 3.3 g/dL (3.0-4.8); CALCIUM 7.7 mg/dL (8.4-10.5); MAGNESIUM 1.8 mg/dL (1.7-2.2)
[2017-01-13] MEDS: oxyCODONE 10 mg Immediate Release Tab PO PRN (21:49)
[2017-01-13 21:52] LABS: CREATININE,RANDOM URINE 59 mg/dL
[2017-01-13 23:02] LABS: CK MB% 0.4 % (2.5-3.0); CK-MB 13.6 ng/mL (0.0-3.6)
[2017-01-14] MEDS: oxyCODONE 10 mg Immediate Release Tab PO PRN ×3 (05:54→20:34)
[2017-01-14] MEDS: Sodium Chloride 0.9% 1,000 ML IV SCH ×3 (06:00→14:45)
[2017-01-14 06:10] LABS: BASO # 0.02 K/mm3 (0.0-2.0); BASO % 0.5 % (0.0-3.0); EOS # 0.2 (0.0-0.7); EOS % 6.3 % (1.5-5.0); GRAN % 39.4 % (50.0-68.0); HEMOGLOBIN 10.3 g/dL (12.0-16.0); LYMPH # 1.7 (1.2-3.4); LYMPH % 43.3 % (22.0-35.0); MEAN CELL VOLUME 90.2 fl (80.0-105.0); MEAN CORPUSCULAR HEMOGLOBIN 29.8 pg (25.0-35.0); MEAN PLATELET VOLUME 9.5 fl (7.0-11.0); MONO # 0.4 (0.1-0.6); MONO % 10.5 % (1.0-6.0); PLATELET COUNT 196 10^3/uL (120.0-450.0); RBC 3.46 10^6/uL (3.5-6.1); RED CELL DISTRIBUTION WIDTH 15.9 % (11.5-14.5); WHITE BLOOD COUNT 3.8 10^3/ul (4.5-11.0)
--- NOTE | 2017-01-14 06:12 | CP.PCM.PN ---
<JORDON HARDY - Last Filed: 01/14/17 15:14> Subjective - Date & Time of Evaluation Date of Evaluation: 01/14/17 Time of Evaluation: 11:00 - Subjective Subjective: MEDICINE PROGRESS NOTE: Pt seen and assessed at bedside. Pt reports no new complaints but does endorse pain in her left hip region that she has had for "a few weeks now" intermittently when she goes from sitting to standing and/or changing positions. She denies headache, fever, changes in her vision, dysphagia, chest pain, palpitations, SOB, cough, abdominal pain, N/V, or diarrhea. Objective - Vital Signs/Intake and Output Vital Signs (last 24 hours): Temp Pulse Resp BP Pulse Ox 98.6 F 82 11 L 105/44 L 96 01/13/17 16:10 01/14/17 01:01 01/14/17 01:00 01/14/17 01:01 01/14/17 01:01 Intake and Output: 01/13/17 01/14/17 18:59 06:59 Intake Total 3948 76 Balance 3948 76 - Medications Medications: Current Medications Acetaminophen (Tylenol 325mg Tab) 650 mg PO Q6H PRN PRN Reason: Fever >100.4 F Last Admin: 01/13/17 13:56 Dose: 650 mg Gabapentin (Neurontin) 300 mg PO TID ALEXI PRN Reason: Protocol Last Admin: 01/13/17 11:25 Dose: Not Given Heparin Sodium/Dextrose (Heparin 25,000 Units/250ml In D5w) 25,000 units in 250 mls @ 16.248 mls/hr IV .[id number] PRN; Protocol; 18 UNITS/KG/HR PRN Reason: ADJUST RATE PER PROTOCOL Last Titration: 01/13/17 22:43 Dose: 13 units/kg/hr, 11.734 mls/hr Sodium Chloride (Sodium Chloride 0.9%) 1,000 mls @ 150 mls/hr IV .Q6H40M [facility] Last Admin: 01/14/17 06:00 Dose: 150 mls/hr Oxycodone HCl (Oxycodone Immediate Release Tab) 30 mg PO Q6 PRN PRN Reason: Pain, severe (8-10) Last Admin: 01/14/17 05:54 Dose: 30 mg Pantoprazole Sodium (Protonix Inj) 40 mg IVP DAILY [facility] Last Admin: 01/13/17 09:36 Dose: 40 mg - Labs Labs: 01/13/17 21:05 01/13/17 21:05 PT 11.1 Seconds (9.9-11.8) 01/13/17 05:45 INR 1.03 (0.93-1.08) 01/13/17 05:45 APTT 103.4 Seconds (23.7-30.8) H* 01/13/17 21:05 - Constitutional Appears: Non-toxic, No Acute Distress - Head Exam Head Exam: ATRAUMATIC, NORMOCEPHALIC - Eye Exam Eye Exam: EOMI, Normal appearance, PERRL - ENT Exam ENT Exam: Mucous Membranes Moist, Normal Exam - Neck Exam Neck Exam: Full ROM, Normal Inspection. absent: Lymphadenopathy - Respiratory Exam Respiratory Exam: Clear to Ausculation Bilateral, NORMAL BREATHING PATTERN. absent: Rales, Rhonchi, Wheezes, Respiratory Distress - Cardiovascular Exam Cardiovascular Exam: REGULAR RHYTHM, RRR, +S1, +S2 - GI/Abdominal Exam GI & Abdominal Exam: Soft, Normal Bowel Sounds. absent: Firm, Guarding, Rigid, Tenderness - Exam Exam: absent: Bladder Distension - Extremities Exam Extremities Exam: Normal Capillary Refill, Normal Inspection. absent: Pedal Edema Additional comments: TTP to left hip over head of greater trochanter - Back Exam Back Exam: absent: CVA tenderness (L), CVA tenderness (R) - Neurological Exam Neurological Exam: Alert, Awake, Oriented x3 - Psychiatric Exam Psychiatric exam: Normal Affect, Normal Mood - Skin Skin Exam: Dry, Intact, Normal Color, Warm Assessment and Plan - Assessment and Plan (Free Text) Assessment: 61 year old AA female with a past medical history significant for protein C deficiency, coumadin induced skin necrosis, CVA, HTN, and DVT, who presented with AMS and found to have rhabdomyolysis and active DVT. Plan: 1. Acute Kidney Injury -rhabdomyolysis likely etiology -CPK: 2533, which is down from 7084 on admission -creatinine downtrending from 2.0 to 1.3 -IVF: Normal Saline at 100mls/hr -strict intake and output -safe to resume gabapentin, per nephro -full nephrology work up, including Lupus serology and anti-JAMIE antibody, for recurrent rhabdo pending -Renal diet -Nephrology consulted, all recommendations appreciated 2. Right Popliteal Vein Thrombosis -history of protein c deficiency and warfarin induced skin necrosis -continue therapeutic heparin drip -will likely need lifetime anticoagulation but has noted adverse reactions to several common anticoagulants; will review medical records and work with hem/ onc to find medication best suited for patient -hem/onc consulted, all recommendations appreciated 3. Left Hip Tenderness -will obtain left hip xray 4-view to rule out fracture -will base further treatment on results of xray 4. GI Prophylaxis -Protonix Patient seen and case discussed with attending, Dr. Kathe Garcia. <Kathe Garcia - Last Filed: 01/17/17 15:40> Objective - Vital Signs/Intake and Output Vital Signs (last 24 hours): Temp Pulse Resp BP Pulse Ox 98.3 F 81 20 144/98 H 99 01/16/17 08:05 01/16/17 08:05 01/16/17 08:05 01/16/17 08:05 01/16/17 11:46 - Labs Labs: 01/16/17 05:00 01/16/17 07:00 PT 11.3 Seconds (9.9-11.8) 01/16/17 07:00 INR 1.05 (0.93-1.08) 01/16/17 07:00 APTT 52.5 Seconds (23.7-30.8) H 01/15/17 13:00 Attending/Attestation - Attestation I have personally seen and examined this patient.: Yes I have fully participated in the care of the patient.: Yes I have reviewed all pertinent clinical information, including history, physical exam and plan: Yes Notes (Text): I have seen and examined the patient at bedside. Agree with the above note with the following additions/ exceptions: Briefly this is 61 year old female with history of protein C deficiency, coumadin induced skin necrosis, CVA, HTN, and DVT, who presented with AMS and found to have rhabdomyolysis and acute popliteal DVT. Patient is alert and oriented X3. Patient just complains of being tired. She will remain on IVF. Advised the patient to stop taking statins. Nephrology consult appreciated. Continue heparin for DVT. Discussed with Dr Lindsey and Dr Szymanski. Upon discharge patient will follow up with Dr Amezquita. Dr Kathe Garcia
[2017-01-14 06:19] LABS: INR 0.99 (0.93-1.08); PARTIAL THROMBOPLASTIN TIME 65.6 Seconds (23.7-30.8); PROTHROMBIN TIME 10.7 Seconds (9.9-11.8)
[2017-01-14 06:23] LABS: ALB/GLOB RATIO 1.1 (1.1-1.8); ALBUMIN 3.6 g/dL (3.0-4.8); CALCIUM 8.3 mg/dL (8.4-10.5)
[2017-01-14 07:21] LABS: CK MB% 0.4 % (2.5-3.0); CK-MB 10.3 ng/mL (0.0-3.6)
[2017-01-14] MEDS: Heparin 25,000units in D5W /250 ML BAG IV PRN (09:31)
--- NOTE | 2017-01-14 12:29 | RAD ---
PROCEDURE: HISTORY: hip pain COMPARISON: 04/14/2016 TECHNIQUE: AP view of the pelvis and applicable frog leg views obtained. FINDINGS: Generalized osteopenia limiting optimal evaluation. Right axial joint space narrowing with minimal right superolateral acetabular spurring -similar appearing. No fracture dislocation appreciated Vague calcification projects over the greater trochanter -some calcific debris and/or calcific trochanteric bursitis are some considerations. Conceivably a gluteal injection granuloma could project over this area as well. Findings are more conspicuous on the current study IMPRESSION: No fracture or dislocation. Generalized osteopenia. Mild degenerative joint space narrowing. Possible right calcific trochanteric bursitis as above.
[2017-01-14] MEDS ORDERED: Potassium Chloride 20 mEq ER Tab PO ONE (12:30)
--- NOTE | 2017-01-14 12:40 | CP.PCM.PN ---
Subjective - Date & Time of Evaluation Date of Evaluation: 01/14/17 Time of Evaluation: 12:23 - Subjective Subjective: FOllow up Nephrology Consultation: Assessment: stable Non-oliguric Acute Kidney Injury (N17.9) likely due to Shock, Hypovolemia/pre- renal state, hypotension, dehydration, rhabdomyolysis>>>Acute tubular necrosis : IMPROVED significantly Anemia (D64.9), Hyperphosphatemia (E83.39), HTN (I12.0) hx of protein C def Hyponatremia, Hyperkalemia Acute High anion gap metabolic acidosis with superimposed respi acidosis Altered mental status Recurrent Rhabdomyolysis (cause ? statins versus autoimmune) Plan Patient not on ACEI/ARB due to JOSEFINA and low BP Monitor Input/Output, daily weights and renal function with basic metabolic panel continue with IVF as normal saline @ 75-100 ml/hr for another day. maintain hemodynamics stable. may resume lower dose neurontin Check spot protein/creatinine and albumin/creatinine ratio Pending Lupus serology, anti-JAMIE antibody. eventually she will need rheumatology/ Neuro/EMG/muscle biopsy to eval for the causes of recurrent rhabdo. avoid Statins in future. Dose meds/antibiotics for improved GFR. Avoid fleets enema/magnesium based laxatives. Avoid nephrotoxins/NSAIDs/ iodinated contrast (unless needed emergently) Glycemic control Further work up/management as per primary team, keisha Thanks for allowing me to participate in care of your patient. Will follow patient with you. Please call if any Qs Dr Junior Szymanski Office: [phone] Chief Complaint; Feel better Reason for consult; JOSEFINA, rhabdomyolysis HPI: Pt is a 61 y/o F with hx of hypertension, protein C def, warfarin necrosis , CVA, DVT s/p IVC fiter, had many incidences of JOSEFINA and rhabdomyolysis over last 1-2 years, had recent knee injection 2 weeks ago, had been feeling sick for last few days with impaired ambulation and unable to eat/drink due to mobility status. she lives alone at home. mostly walks with cane. also found to be be counfused and brought to ER. She has been hypotensive and acidotic with JOSEFINA and elevated CPK hence renal consulted. Denies chest pain, palpitation, shortness of breath, leg swelling Denies blood or bubbles in urine Denies OTC/herbal meds or NSAIDs No recent iodinated contrast exposure. had episodes of low BP since came to ER. ROS: Constitutional Symptoms: Denies fever. No chills. No Recent Weight Changes Eyes: denies change in vision, denies watery eyes, denies double vision Ears/Nose/Mouth/Throat: Denies Abnormal Taste. No Bad breath no Bad Taste. Cardiovascular: No chest pain. There is no shortness of breath. No palpitations. Pulmonary: No shortness of breath no cough. Gastrointestinal: denies abdominal pain No nausea. No vomiting. Denies change in bowel habits. Denies Bleeding Genitourinary: No Change in force of strain when urinating. No increase in urinary frequency. No pain while urinating. Denies blood in urine. Neurological: Denies headaches. No dizziness. Denies loss of balance. c/o overall weakness, denies tingling/numbness Dermatological: No Rash or Bruising or ulcers. Psychiatric: Denies Anxiety. No depression. Denies hallucinations. Rheumatological: Denies Joint swelling Endocrine: c/o tiredness/Fatigue denies Heat/Cold Intolerance. All other negative Physical Examination: General Appearance: Comfortable, in no acute respiratory distress, co-operative . walking around Vitals reviewed and noted as below. Head; Atraumatic, normocephalic ENT: no ulcers no thrush. Tongue is midline. Oropharynx: no rash or ulcers. very dry oral mucosa and coated EYES: Pupils are equal, round and reactive to light accommodation. Eye muscles and extraocular movement intact. Sclera is anicteric. Neck; supple no lymphadenopathy, no thyromegaly or bruit Lungs: Normal respiratory rate/effort. Breath sounds bilateral equal and clear Heart: Normal rate. s1s2 normal. No rub or gallop. Extremities: no edema. No varicose veins Neurological: Patient is awake oriented to person, place and time. No focal deficit. Strength bilateral appropriate and equal . Skin: Warm and dry. normal turgor. No rash. Palpitation: Normal elasticity for age Abdomen: Abdomen is soft. Bowel sounds +. There is no abdominal tenderness, no guarding/rigidity no organomegaly Psych: normal insight and normal affect/mood MSK: no joint tenderness or swelling. Digits and nails normal, no deformity : kidney or bladder not palpable Labs/imaging/EKG reviewed. Past medical history, past surgical history, family history, social history, allergy reviewed and noted as below Family hx: no hx of CKD. Rest non-contributory Work up UA 100 protein, large blood but no RBC CT: rt renal cyst otherwise unremarkable Objective - Vital Signs/Intake and Output Vital Signs (last 24 hours): Temp Pulse Resp BP Pulse Ox 98.6 F 80 14 114/58 L 95 01/14/17 08:00 01/14/17 11:00 01/14/17 11:00 01/14/17 11:00 01/14/17 11:00 Intake and Output: 01/14/17 01/14/17 06:59 18:59 Intake Total 2116 164 Output Total 2250 Balance -134 164 - Medications Medications: Current Medications Acetaminophen (Tylenol 325mg Tab) 650 mg PO Q6H PRN PRN Reason: Fever >100.4 F Last Admin: 01/13/17 13:56 Dose: 650 mg Gabapentin (Neurontin) 300 mg PO TID [facility] PRN Reason: Protocol Last Admin: 01/13/17 11:25 Dose: Not Given Heparin Sodium/Dextrose (Heparin 25,000 Units/250ml In D5w) 25,000 units in 250 mls @ 16.248 mls/hr IV .[id number] PRN; Protocol; 18 UNITS/KG/HR PRN Reason: ADJUST RATE PER PROTOCOL Last Admin: 01/14/17 09:31 Dose: 13 units/kg/hr, 11.734 mls/hr Sodium Chloride (Sodium Chloride 0.9%) 1,000 mls @ 150 mls/hr IV .Q6H40M [facility] Last Admin: 01/14/17 09:30 Dose: 150 mls/hr Oxycodone HCl (Oxycodone Immediate Release Tab) 30 mg PO Q6 PRN PRN Reason: Pain, severe (8-10) Last Admin: 01/14/17 05:54 Dose: 30 mg Pantoprazole Sodium (Protonix Inj) 40 mg IVP DAILY [facility] Last Admin: 01/14/17 09:30 Dose: 40 mg - Labs Labs: 01/14/17 05:30 01/14/17 05:30 PT 10.7 Seconds (9.9-11.8) 01/14/17 05:30 INR 0.99 (0.93-1.08) 01/14/17 05:30 APTT 65.6 Seconds (23.7-30.8) H 01/14/17 05:30
--- NOTE | 2017-01-14 17:45 | RAD ---
PROCEDURE: Left Hip X-ray Radiographs. HISTORY: L hip pain COMPARISON: None. FINDINGS: BONES: The pelvic ring is intact. There is no acute fracture or bone destruction. There is diffuse bone demineralization. . JOINTS: There is mild degenerative osteoarthrosis in the hip joints. The sacroiliac joints are normal. SOFT TISSUES: Normal. OTHER FINDINGS: There is a small round calcification in the left lateral soft tissues. IMPRESSION: No acute displaced fracture or dislocation. Please note occult fractures cannot be excluded on plain radiographs. If there is a persistent clinical concern, an MRI of the hip may be performed for further evaluation.
[2017-01-15] MEDS: Sodium Chloride 0.9% 1,000 ML IV SCH ×2 (00:16→09:49)
[2017-01-15] MEDS: oxyCODONE 10 mg Immediate Release Tab PO PRN ×4 (02:41→22:31)
[2017-01-15 06:16] LABS: BASO # 0.02 K/mm3 (0.0-2.0); BASO % 0.6 % (0.0-3.0); EOS # 0.2 (0.0-0.7); EOS % 6.5 % (1.5-5.0); GRAN # 0.91 (1.4-6.5); GRAN % 26.8 % (50.0-68.0); LYMPH # 1.8 (1.2-3.4); LYMPH % 54.3 % (22.0-35.0); MEAN CELL VOLUME 90.4 fl (80.0-105.0); MEAN CORPUSCULAR HEMOGLOBIN 29.2 pg (25.0-35.0); MEAN CORPUSCULAR HGB CONC 32.2 g/dl (31.0-37.0); MEAN PLATELET VOLUME 9.3 fl (7.0-11.0); MONO # 0.4 (0.1-0.6); MONO % 11.8 % (1.0-6.0); PLATELET COUNT 186 10^3/uL (120.0-450.0); RBC 2.71 10^6/uL (3.5-6.1); RED CELL DISTRIBUTION WIDTH 15.9 % (11.5-14.5); WHITE BLOOD COUNT 3.4 10^3/ul (4.5-11.0)
[2017-01-15 06:24] LABS: HEMOGLOBIN 7.9 g/dL (12.0-16.0)
[2017-01-15 06:25] LABS: INR 1.06 (0.93-1.08); PROTHROMBIN TIME 11.4 Seconds (9.9-11.8)
[2017-01-15 06:26] LABS: ALB/GLOB RATIO 0.9 (1.1-1.8); ALBUMIN 2.6 g/dL (3.0-4.8); ALT/SGPT 23 U/L (7-56); AST/SGOT 39 U/L (15-39); BLOOD UREA NITROGEN 18 mg/dL (7-21); CALCIUM 8.1 mg/dL (8.4-10.5); GFR AFRICAN-AMERICAN > 60; GFR NON-AFRICAN AMERICAN > 60; URIC ACID 8.2 mg/dL (2.5-6.2)
[2017-01-15] MEDS: Heparin 25,000units in D5W /250 ML BAG IV PRN (06:42)
[2017-01-15 07:43] LABS: CK-MB 3.5 ng/mL (0.0-3.6)
[2017-01-15] MEDS ORDERED: Potassium & Sodium Phosphate PO ONE ×2 (07:45→12:00)
[2017-01-15] MEDS: Enoxaparin 100 mg Syringe SC SCH ×2 (11:57→22:31)
[2017-01-15 13:04] LABS: BASO # 0.01 K/mm3 (0.0-2.0); BASO % 0.3 % (0.0-3.0); EOS # 0.2 (0.0-0.7); EOS % 4.4 % (1.5-5.0); GRAN # 1.32 (1.4-6.5); GRAN % 36.6 % (50.0-68.0); HEMOGLOBIN 9.1 g/dL (12.0-16.0); LYMPH # 1.7 (1.2-3.4); LYMPH % 45.7 % (22.0-35.0); MEAN CELL VOLUME 91.5 fl (80.0-105.0); MEAN CORPUSCULAR HEMOGLOBIN 29.7 pg (25.0-35.0); MEAN CORPUSCULAR HGB CONC 32.5 g/dl (31.0-37.0); MEAN PLATELET VOLUME 8.9 fl (7.0-11.0); MONO # 0.5 (0.1-0.6); PLATELET COUNT 191 10^3/uL (120.0-450.0); RBC 3.06 10^6/uL (3.5-6.1); RED CELL DISTRIBUTION WIDTH 15.8 % (11.5-14.5); WHITE BLOOD COUNT 3.6 10^3/ul (4.5-11.0)
[2017-01-15] MEDS ORDERED: Potassium Chloride 20 mEq ER Tab PO ONE (14:09)
--- NOTE | 2017-01-15 14:13 | CP.PCM.PN ---
Subjective - Date & Time of Evaluation Date of Evaluation: 01/15/17 Time of Evaluation: 14:10 - Subjective Subjective: Follow up Nephrology Consultation: Assessment: stable Non-oliguric Acute Kidney Injury (N17.9) likely due to Shock, Hypovolemia/pre- renal state, hypotension, dehydration, rhabdomyolysis>>>Acute tubular necrosis : IMPROVED significantly Hypokalemia Anemia (D64.9), Hyperphosphatemia (E83.39), HTN (I12.0) hx of protein C def Hyponatremia, Hyperkalemia Acute High anion gap metabolic acidosis with superimposed respi acidosis Altered mental status Recurrent Rhabdomyolysis (cause ? statins versus autoimmune) Plan Patient not on ACEI/ARB due to JOSEFINA and low BP. hold BP meds. d/c IVF. supplement KDUR may resume neurontin Check spot protein/creatinine and albumin/creatinine ratio Pending Lupus serology, anti-JAMIE antibody (NEG). eventually she will need rheumatology/Neuro/EMG/muscle biopsy to eval for the causes of recurrent rhabdo. avoid Statins in future. Dose meds/antibiotics for normal GFR. Avoid fleets enema/magnesium based laxatives. Avoid nephrotoxins/NSAIDs/ iodinated contrast (unless needed emergently) Glycemic control Further work up/management as per primary team, heme Thanks for allowing me to participate in care of your patient. Please call if any Qs. pt stable from renal perspective. to f/up 2 weeks post d/c. Dr Junior Szymanski ([address] [place] [address]) Office: [phone] Chief Complaint; Feel much better Reason for consult; JOSEFINA, rhabdomyolysis HPI: Pt is a 61 y/o F with hx of hypertension, protein C def, warfarin necrosis , CVA, DVT s/p IVC fiter, had many incidences of JOSEFINA and rhabdomyolysis over last 1-2 years, had recent knee injection 2 weeks ago, had been feeling sick for last few days with impaired ambulation and unable to eat/drink due to mobility status. she lives alone at home. mostly walks with cane. also found to be be counfused and brought to ER. She has been hypotensive and acidotic with JOSEFINA and elevated CPK hence renal consulted. Denies chest pain, palpitation, shortness of breath, leg swelling Denies blood or bubbles in urine Denies OTC/herbal meds or NSAIDs No recent iodinated contrast exposure. had episodes of low BP since came to ER. ROS: Constitutional Symptoms: Denies fever. No chills. No Recent Weight Changes Eyes: denies change in vision, denies watery eyes, denies double vision Ears/Nose/Mouth/Throat: Denies Abnormal Taste. No Bad breath no Bad Taste. Cardiovascular: No chest pain. There is no shortness of breath. No palpitations. Pulmonary: No shortness of breath no cough. Gastrointestinal: denies abdominal pain No nausea. No vomiting. Denies change in bowel habits. Denies Bleeding Genitourinary: No Change in force of strain when urinating. No increase in urinary frequency. No pain while urinating. Denies blood in urine. Neurological: Denies headaches. No dizziness. Denies loss of balance. c/o overall weakness but better, denies tingling/numbness Dermatological: No Rash or Bruising or ulcers. Psychiatric: Denies Anxiety. No depression. Denies hallucinations. Rheumatological: Denies Joint swelling Endocrine: c/o tiredness/Fatigue but better denies Heat/Cold Intolerance. All other negative Physical Examination: General Appearance: Comfortable, in no acute respiratory distress, co-operative . Vitals reviewed and noted as below. Head; Atraumatic, normocephalic ENT: no ulcers no thrush. Tongue is midline. Oropharynx: no rash or ulcers. very dry oral mucosa and coated EYES: Pupils are equal, round and reactive to light accommodation. Eye muscles and extraocular movement intact. Sclera is anicteric. Neck; supple no lymphadenopathy, no thyromegaly or bruit Lungs: Normal respiratory rate/effort. Breath sounds bilateral equal and clear Heart: Normal rate. s1s2 normal. No rub or gallop. Extremities: 1+ edema. No varicose veins Neurological: Patient is awake oriented to person, place and time. No focal deficit. Strength bilateral appropriate and equal . Skin: Warm and dry. normal turgor. No rash. Palpitation: Normal elasticity for age Abdomen: Abdomen is soft. Bowel sounds +. There is no abdominal tenderness, no guarding/rigidity no organomegaly Psych: normal insight and normal affect/mood MSK: no joint tenderness or swelling. Digits and nails normal, no deformity : kidney or bladder not palpable Labs/imaging/EKG reviewed. Past medical history, past surgical history, family history, social history, allergy reviewed and noted as below Family hx: no hx of CKD. Rest non-contributory Work up UA 100 protein, large blood but no RBC CT: rt renal cyst otherwise unremarkable Objective - Vital Signs/Intake and Output Vital Signs (last 24 hours): Temp Pulse Resp BP Pulse Ox 98.1 F 80 20 109/60 98 01/15/17 08:00 01/15/17 08:00 01/15/17 08:00 01/15/17 08:00 01/15/17 08:00 Intake and Output: 01/15/17 01/15/17 06:59 18:59 Intake Total 1050 420 Balance 1050 420 - Medications Medications: Current Medications Acetaminophen (Tylenol 325mg Tab) 650 mg PO Q6H PRN PRN Reason: Fever >100.4 F Last Admin: 01/13/17 13:56 Dose: 650 mg Enoxaparin Sodium (Lovenox) 100 mg SC Q12H [facility] PRN Reason: Protocol Last Admin: 01/15/17 11:57 Dose: 100 mg Gabapentin (Neurontin) 300 mg PO TID [facility] PRN Reason: Protocol Last Admin: 01/15/17 09:40 Dose: 300 mg Oxycodone HCl (Oxycodone Immediate Release Tab) 30 mg PO Q6 PRN PRN Reason: Pain, severe (8-10) Last Admin: 01/15/17 09:40 Dose: 30 mg Pantoprazole Sodium (Protonix Inj) 40 mg IVP DAILY [facility] Last Admin: 01/15/17 09:39 Dose: 40 mg Potassium Chloride (K-Dur 20 Meq Er Tab) 40 meq PO ONCE ONE Stop: 01/15/17 14:10 - Labs Labs: 01/15/17 12:00 01/15/17 05:20 PT 11.4 Seconds (9.9-11.8) 01/15/17 05:20 INR 1.06 (0.93-1.08) 01/15/17 05:20 APTT 52.5 Seconds (23.7-30.8) H 01/15/17 13:00
--- NOTE | 2017-01-15 16:37 | CP.PCM.PN ---
<JORDON HARDY - Last Filed: 01/15/17 16:17> Subjective - Date & Time of Evaluation Date of Evaluation: 01/15/17 Time of Evaluation: 16:17 - Subjective Subjective: MEDICINE PROGRESS NOTE: Pt seen and assessed at bedside. Pt reports no new complaints this AM. She denies headache, fever, changes in her vision, dysphagia, chest pain, palpitations, SOB, cough, abdominal pain, N/V, or diarrhea. Objective - Vital Signs/Intake and Output Vital Signs (last 24 hours): Temp Pulse Resp BP Pulse Ox 98.1 F 80 20 109/60 98 01/15/17 08:00 01/15/17 08:00 01/15/17 08:00 01/15/17 08:00 01/15/17 08:00 Intake and Output: 01/15/17 01/15/17 06:59 18:59 Intake Total 1050 420 Balance 1050 420 - Medications Medications: Current Medications Acetaminophen (Tylenol 325mg Tab) 650 mg PO Q6H PRN PRN Reason: Fever >100.4 F Last Admin: 01/13/17 13:56 Dose: 650 mg Enoxaparin Sodium (Lovenox) 100 mg SC Q12H [facility] PRN Reason: Protocol Last Admin: 01/15/17 11:57 Dose: 100 mg Gabapentin (Neurontin) 300 mg PO TID [facility]LEXI PRN Reason: Protocol Last Admin: 01/15/17 15:29 Dose: 300 mg Oxycodone HCl (Oxycodone Immediate Release Tab) 30 mg PO Q6 PRN PRN Reason: Pain, severe (8-10) Last Admin: 01/15/17 09:40 Dose: 30 mg Pantoprazole Sodium (Protonix Inj) 40 mg IVP DAILY [facility] Last Admin: 01/15/17 09:39 Dose: 40 mg - Labs Labs: 01/15/17 12:00 01/15/17 05:20 PT 11.4 Seconds (9.9-11.8) 01/15/17 05:20 INR 1.06 (0.93-1.08) 01/15/17 05:20 APTT 52.5 Seconds (23.7-30.8) H 01/15/17 13:00 - Constitutional Appears: Non-toxic, No Acute Distress - Head Exam Head Exam: ATRAUMATIC, NORMOCEPHALIC - Eye Exam Eye Exam: EOMI, Normal appearance, PERRL - ENT Exam ENT Exam: Mucous Membranes Moist, Normal Exam - Neck Exam Neck Exam: Full ROM, Normal Inspection. absent: Lymphadenopathy - Respiratory Exam Respiratory Exam: Clear to Ausculation Bilateral, NORMAL BREATHING PATTERN. absent: Rales, Rhonchi, Wheezes, Respiratory Distress - Cardiovascular Exam Cardiovascular Exam: REGULAR RHYTHM, RRR. absent: +S1, +S2 - GI/Abdominal Exam GI & Abdominal Exam: Soft, Normal Bowel Sounds. absent: Distended, Firm, Guarding, Tenderness - Exam Exam: absent: Bladder Distension - Extremities Exam Extremities Exam: Normal Capillary Refill. absent: Pedal Edema - Back Exam Back Exam: absent: CVA tenderness (L), CVA tenderness (R) - Neurological Exam Neurological Exam: Alert, Awake, Oriented x3 - Psychiatric Exam Psychiatric exam: Normal Affect, Normal Mood - Skin Skin Exam: Dry, Intact, Normal Color, Warm Assessment and Plan - Assessment and Plan (Free Text) Assessment: 61 year old AA female with a past medical history significant for protein C deficiency, coumadin induced skin necrosis, CVA, HTN, and DVT, who presented with AMS and found to have rhabdomyolysis and active DVT Plan: 1. Acute Kidney Injury-Resolved -rhabdomyolysis likely etiology -CPK: 963, which is down from 7084 on admission -BUN/Creatinine: 18/0.7, which is decreased from 55/4.4 on admission -discontinue IVF, per nephro -strict intake and output; 1634/1634 is I/O for 01/15 -full nephrology work up, including Lupus serology, for recurrent rhabdo pending ; kristyn-antibody negative -Renal diet -Nephrology consulted, all recommendations appreciated 2. Right Popliteal Vein Thrombosis -history of protein c deficiency and warfarin induced skin necrosis -discontinued heparin drip -started Lovenox 100mg Q12 -will likely start pradaxa upon discharge, as this medication has a reversal agent which patient will need due to increased fall risk -hem/onc consulted, all recommendations appreciated 3. Chronic Anemia -Hb dropped from 10.3 to 7.9 on AM labs -a repeat CBC at 1200 today showed Hb to be 9.1 -will continue to monitor 4. Left Hip Tenderness -will obtain left hip xray 4-view to rule out fracture -will base further treatment on results of xray -continue home oxycodone for pain control -PT/OT evaluation pending 5. History of CVA -holding simvastatin in setting of rhabdomyolysis 6. Hypophosphatemia -Phos at 2.4 today -4 packets of neutraphos for replenishment 7. Hypokalemia -K+ at 3.4 today -40meq of K-Dur PO given for replenishment 8. Hyperuricemia -Uric Acid at 8.2 and elevated since admission -chronically elevated, per chart review 9. Hypoalbuminemia -albumin mildly decreased at 2.7 -clinically asymptomatic -will monitor with 10. GI Prophylaxis -Protonix Patient seen and case discussed with attending, Dr. Kathe Garcia. <Kathe Garcia - Last Filed: 01/17/17 15:47> Objective - Vital Signs/Intake and Output Vital Signs (last 24 hours): Temp Pulse Resp BP Pulse Ox 98.3 F 81 20 144/98 H 99 01/16/17 08:05 01/16/17 08:05 01/16/17 08:05 01/16/17 08:05 01/16/17 11:46 - Labs Labs: 01/16/17 05:00 01/16/17 07:00 PT 11.3 Seconds (9.9-11.8) 01/16/17 07:00 INR 1.05 (0.93-1.08) 01/16/17 07:00 APTT 52.5 Seconds (23.7-30.8) H 01/15/17 13:00 Attending/Attestation - Attestation I have personally seen and examined this patient.: Yes I have fully participated in the care of the patient.: Yes I have reviewed all pertinent clinical information, including history, physical exam and plan: Yes Notes (Text): I have seen and examined the patient at bedside. Agree with the above note with the following additions/ exceptions: Briefly this is 61 year old female with history of protein C deficiency, coumadin induced skin necrosis, CVA, HTN, and DVT, who presented with AMS and found to have recurrent rhabdomyolysis (most likely due to statins but autoimmune causes cannot be ruled out as the tests are pending), Acute kidney injury (resolved) and acute popliteal DVT. Patient is alert and oriented X3. She denies any complaints. Renal function is back to normal. JOSEFINA was most likely pre renal in setting of rhabdomyolysis. Continues to have hyperphosphatemia and anemia. Advised the patient to stop taking statins. Nephrology consult appreciated. Continue heparin for DVT while in patient however recommended to start pradaxa upon discharge. Discussed with Dr Lindsey and Dr Szymanski. Upon discharge patient will follow up with Dr Amezquita. Patient will need outpatient rheumatology, neurology follow up for possible EMG and muscle biopsy to evaluate the reason for recurrent rhabdomyolysis. Dr Kathe Garcia
--- NOTE | 2017-01-15 21:18 | CP.PCM.PN ---
Subjective - Date & Time of Evaluation Date of Evaluation: 01/15/17 Time of Evaluation: 19:00 - Subjective Subjective: Covering Dr. Zendejas Feeling better Objective - Vital Signs/Intake and Output Vital Signs (last 24 hours): Temp Pulse Resp BP Pulse Ox 97.8 F 70 18 144/92 H 100 01/15/17 16:54 01/15/17 16:54 01/15/17 16:54 01/15/17 16:54 01/15/17 16:54 Intake and Output: 01/15/17 01/16/17 18:59 06:59 Intake Total 420 Balance 420 - Medications Medications: Current Medications Acetaminophen (Tylenol 325mg Tab) 650 mg PO Q6H PRN PRN Reason: Fever >100.4 F Last Admin: 01/13/17 13:56 Dose: 650 mg Enoxaparin Sodium (Lovenox) 100 mg SC Q12H [facility] PRN Reason: Protocol Last Admin: 01/15/17 11:57 Dose: 100 mg Gabapentin (Neurontin) 300 mg PO TID [facility] PRN Reason: Protocol Last Admin: 01/15/17 18:06 Dose: 300 mg Oxycodone HCl (Oxycodone Immediate Release Tab) 30 mg PO Q6 PRN PRN Reason: Pain, severe (8-10) Last Admin: 01/15/17 16:34 Dose: 30 mg Pantoprazole Sodium (Protonix Inj) 40 mg IVP DAILY [facility] Last Admin: 01/15/17 09:39 Dose: 40 mg - Labs Labs: 01/15/17 12:00 01/15/17 05:20 PT 11.4 Seconds (9.9-11.8) 01/15/17 05:20 INR 1.06 (0.93-1.08) 01/15/17 05:20 APTT 52.5 Seconds (23.7-30.8) H 01/15/17 13:00 - Head Exam Head Exam: ATRAUMATIC - Eye Exam Eye Exam: Normal appearance - ENT Exam ENT Exam: Mucous Membranes Dry - Respiratory Exam Respiratory Exam: NORMAL BREATHING PATTERN - Cardiovascular Exam Cardiovascular Exam: +S1, +S2 - GI/Abdominal Exam GI & Abdominal Exam: Normal Bowel Sounds - Extremities Exam Extremities Exam: Pedal Edema Assessment and Plan (1) DVT (deep venous thrombosis) Assessment & Plan: Recurrent likely provoked from immobility currently on therapeutic lovenox outpatient Pradaxa 150mg PO BID outpatient f/u with Dr. Zendejas Status: Acute (2) Anemia Assessment & Plan: anemia of chronic disease Status: Acute (3) Coagulopathy Assessment & Plan: secondary to anticoagulation Status: Chronic
--- NOTE | 2017-01-15 21:20 | CP.PCM.PN ---
Subjective - Date & Time of Evaluation Date of Evaluation: 01/14/17 Time of Evaluation: 14:00 - Subjective Subjective: Feeling better Objective - Vital Signs/Intake and Output Vital Signs (last 24 hours): Temp Pulse Resp BP Pulse Ox 97.8 F 70 18 144/92 H 100 01/15/17 16:54 01/15/17 16:54 01/15/17 16:54 01/15/17 16:54 01/15/17 16:54 Intake and Output: 01/15/17 01/16/17 18:59 06:59 Intake Total 420 Balance 420 - Medications Medications: Current Medications Acetaminophen (Tylenol 325mg Tab) 650 mg PO Q6H PRN PRN Reason: Fever >100.4 F Last Admin: 01/13/17 13:56 Dose: 650 mg Enoxaparin Sodium (Lovenox) 100 mg SC Q12H [facility] PRN Reason: Protocol Last Admin: 01/15/17 11:57 Dose: 100 mg Gabapentin (Neurontin) 300 mg PO TID [facility] PRN Reason: Protocol Last Admin: 01/15/17 18:06 Dose: 300 mg Oxycodone HCl (Oxycodone Immediate Release Tab) 30 mg PO Q6 PRN PRN Reason: Pain, severe (8-10) Last Admin: 01/15/17 16:34 Dose: 30 mg Pantoprazole Sodium (Protonix Inj) 40 mg IVP DAILY [facility] Last Admin: 01/15/17 09:39 Dose: 40 mg - Labs Labs: 01/15/17 12:00 01/15/17 05:20 PT 11.4 Seconds (9.9-11.8) 01/15/17 05:20 INR 1.06 (0.93-1.08) 01/15/17 05:20 APTT 52.5 Seconds (23.7-30.8) H 01/15/17 13:00 - Head Exam Head Exam: ATRAUMATIC - Eye Exam Eye Exam: Normal appearance - ENT Exam ENT Exam: Mucous Membranes Dry - Respiratory Exam Respiratory Exam: NORMAL BREATHING PATTERN - Cardiovascular Exam Cardiovascular Exam: +S1, +S2 - GI/Abdominal Exam GI & Abdominal Exam: Normal Bowel Sounds - Extremities Exam Extremities Exam: Pedal Edema Assessment and Plan (1) DVT (deep venous thrombosis) Assessment & Plan: recurrent with MTHFR mutation (heterozygous) on therapeutic anticoagulation outpatient pradaxa Status: Acute (2) Anemia Assessment & Plan: chronic disease transfusion support PRN Status: Acute (3) Coagulopathy Assessment & Plan: secondary to anticoagulation Status: Chronic
[2017-01-16] MEDS: oxyCODONE 10 mg Immediate Release Tab PO PRN ×2 (04:41→10:56)
[2017-01-16] MEDS ORDERED: Pantoprazole 40 mg EC Tab PO SCH (06:00)
[2017-01-16 07:43] LABS: BASO # 0.01 K/mm3 (0.0-2.0); BASO % 0.3 % (0.0-3.0); EOS # 0.2 (0.0-0.7); EOS % 6.1 % (1.5-5.0); GRAN # 1.16 (1.4-6.5); GRAN % 33.5 % (50.0-68.0); HEMOGLOBIN 8.4 g/dL (12.0-16.0); LYMPH # 1.7 (1.2-3.4); MEAN CELL VOLUME 90.1 fl (80.0-105.0); MEAN CORPUSCULAR HEMOGLOBIN 28.8 pg (25.0-35.0); MEAN CORPUSCULAR HGB CONC 31.9 g/dl (31.0-37.0); MEAN PLATELET VOLUME 9.2 fl (7.0-11.0); MONO # 0.4 (0.1-0.6); MONO % 12.1 % (1.0-6.0); PLATELET COUNT 189 10^3/uL (120.0-450.0); RBC 2.92 10^6/uL (3.5-6.1); RED CELL DISTRIBUTION WIDTH 15.6 % (11.5-14.5); WHITE BLOOD COUNT 3.5 10^3/ul (4.5-11.0)
[2017-01-16 07:52] LABS: INR 1.05 (0.93-1.08); PROTHROMBIN TIME 11.3 Seconds (9.9-11.8)
[2017-01-16 07:54] LABS: ALBUMIN 2.8 g/dL (3.0-4.8); ALT/SGPT 28 U/L (7-56); AST/SGOT 34 U/L (15-39); BLOOD UREA NITROGEN 10 mg/dL (7-21); CALCIUM 8.4 mg/dL (8.4-10.5); GFR AFRICAN-AMERICAN > 60; GFR NON-AFRICAN AMERICAN > 60
[2017-01-16 08:06] VITALS: BP 144/98; PULSE 81; RESP 20; TEMP 98.3; O2SAT 99
[2017-01-16] MEDS: Enoxaparin 100 mg Syringe SC SCH (10:43)
--- NOTE | 2017-01-16 14:27 | CP.PCM.PN ---
Subjective - Date & Time of Evaluation Date of Evaluation: 01/16/17 Time of Evaluation: 14:23 - Subjective Subjective: Follow up Nephrology Consultation: Assessment: stable Non-oliguric Acute Kidney Injury (N17.9) likely due to Shock, Hypovolemia/pre- renal state, hypotension, dehydration, rhabdomyolysis>>>Acute tubular necrosis: resolved Hypokalemia Anemia (D64.9), Hyperphosphatemia (E83.39), HTN (I12.0) hx of protein C def Hyponatremia, Hyperkalemia Acute High anion gap metabolic acidosis with superimposed respi acidosis Altered mental status Recurrent Rhabdomyolysis (cause ? statins. So far neg work up for autoimmune pathology) Plan resume her home bp meds pt takes only lasix only on as needed basis for leg swelling. so far neg Lupus serology, anti-JAMIE antibody (NEG). If recurrence, then she will need rheumatology/Neuro/EMG/muscle biopsy to eval for the causes of recurrent rhabdo. avoid Statins in future. Dose meds/antibiotics for normal GFR. Avoid fleets enema/magnesium based laxatives. Avoid nephrotoxins/NSAIDs/ iodinated contrast (unless needed emergently) Glycemic control Further work up/management as per primary team, heme Thanks for allowing me to participate in care of your patient. Please call if any Qs. pt stable from renal perspective for d/c. to f/up 2 weeks post d/c. Dr Junior Szymanski ([address] [place] [address]) Office: [phone] Chief Complaint; Feel much better Reason for consult; JOSEFINA, rhabdomyolysis HPI: Pt is a 61 y/o F with hx of hypertension, protein C def, warfarin necrosis , CVA, DVT s/p IVC fiter, had many incidences of JOSEFINA and rhabdomyolysis over last 1-2 years, had recent knee injection 2 weeks ago, had been feeling sick for last few days with impaired ambulation and unable to eat/drink due to mobility status. she lives alone at home. mostly walks with cane. also found to be be counfused and brought to ER. She has been hypotensive and acidotic with JOSEFINA and elevated CPK hence renal consulted. Denies chest pain, palpitation, shortness of breath, c/o leg swelling Denies blood or bubbles in urine Denies OTC/herbal meds or NSAIDs No recent iodinated contrast exposure. had episodes of low BP since came to ER. ROS: Constitutional Symptoms: Denies fever. No chills. No Recent Weight Changes Eyes: denies change in vision, denies watery eyes, denies double vision Ears/Nose/Mouth/Throat: Denies Abnormal Taste. No Bad breath no Bad Taste. Cardiovascular: No chest pain. There is no shortness of breath. No palpitations. Pulmonary: No shortness of breath no cough. Gastrointestinal: denies abdominal pain No nausea. No vomiting. Denies change in bowel habits. Denies Bleeding Genitourinary: No Change in force of strain when urinating. No increase in urinary frequency. No pain while urinating. Denies blood in urine. Neurological: Denies headaches. No dizziness. Denies loss of balance. c/o overall weakness but better, denies tingling/numbness Dermatological: No Rash or Bruising or ulcers. Psychiatric: Denies Anxiety. No depression. Denies hallucinations. Rheumatological: Denies Joint swelling Endocrine: c/o tiredness/Fatigue but better denies Heat/Cold Intolerance. All other negative Physical Examination: General Appearance: Comfortable, in no acute respiratory distress, co-operative . Vitals reviewed and noted as below. Head; Atraumatic, normocephalic ENT: no ulcers no thrush. Tongue is midline. Oropharynx: no rash or ulcers. EYES: Pupils are equal, round and reactive to light accommodation. Eye muscles and extraocular movement intact. Sclera is anicteric. Neck; supple no lymphadenopathy, no thyromegaly or bruit Lungs: Normal respiratory rate/effort. Breath sounds bilateral equal and clear Heart: Normal rate. s1s2 normal. No rub or gallop. Extremities: 1+ edema. No varicose veins Neurological: Patient is awake oriented to person, place and time. No focal deficit. Strength bilateral appropriate and equal . Skin: Warm and dry. normal turgor. No rash. Palpitation: Normal elasticity for age Abdomen: Abdomen is soft. Bowel sounds +. There is no abdominal tenderness, no guarding/rigidity no organomegaly Psych: normal insight and normal affect/mood MSK: no joint tenderness or swelling. Digits and nails normal, no deformity : kidney or bladder not palpable Labs/imaging/EKG reviewed. Past medical history, past surgical history, family history, social history, allergy reviewed and noted as below Family hx: no hx of CKD. Rest non-contributory Work up UA 100 protein, large blood but no RBC CT: rt renal cyst otherwise unremarkable Objective - Vital Signs/Intake and Output Vital Signs (last 24 hours): Temp Pulse Resp BP Pulse Ox 98.3 F 81 20 144/98 H 99 01/16/17 08:05 01/16/17 08:05 01/16/17 08:05 01/16/17 08:05 01/16/17 11:46 Intake and Output: 01/16/17 01/16/17 06:59 18:59 Intake Total 660 Balance 660 - Medications Medications: Current Medications Acetaminophen (Tylenol 325mg Tab) 650 mg PO Q6H PRN PRN Reason: Fever >100.4 F Last Admin: 01/13/17 13:56 Dose: 650 mg Enoxaparin Sodium (Lovenox) 100 mg SC Q12H ALEXI PRN Reason: Protocol Last Admin: 01/16/17 10:43 Dose: 100 mg Gabapentin (Neurontin) 300 mg PO TID ALEXI PRN Reason: Protocol Last Admin: 01/16/17 10:43 Dose: 300 mg Losartan Potassium (Cozaar) 50 mg PO DAILY ALEXI Oxycodone HCl (Oxycodone Immediate Release Tab) 30 mg PO Q6 PRN PRN Reason: Pain, severe (8-10) Last Admin: 01/16/17 10:56 Dose: 30 mg Pantoprazole Sodium (Protonix Ec Tab) 40 mg PO 0600 [facility] Last Admin: 01/16/17 05:00 Dose: 40 mg - Labs Labs: 01/16/17 05:00 01/16/17 07:00 PT 11.3 Seconds (9.9-11.8) 01/16/17 07:00 INR 1.05 (0.93-1.08) 01/16/17 07:00 APTT 52.5 Seconds (23.7-30.8) H 01/15/17 13:00
--- NOTE | 2017-01-17 18:06 | CP.PCM.DIS ---
<JORDON HARDY - Last Filed: 01/17/17 18:02> Provider - Provider Date of Admission: 01/12/17 19:34 Attending physician: Kathe Garcia MD Primary care physician: John Amezquita MD Consults: Hem/Onc: Cristiana Nephro: Javier Time Spent in preparation of Discharge (in minutes): 61 Hospital Course - Lab Results Lab Results: Micro Results 01/12/17 19:38 Urine Urine Culture - Final No Growth (<1,000 CFU/ML) Most Recent Lab Values WBC 3.5 10^3/ul (4.5-11.0) L 01/16/17 05:00 RBC 2.92 10^6/uL (3.5-6.1) L 01/16/17 05:00 Hgb 8.4 g/dL (12.0-16.0) L 01/16/17 05:00 Hct 26.3 % (36.0-48.0) L 01/16/17 05:00 MCV 90.1 fl (80.0-105.0) 01/16/17 05:00 MCH 28.8 pg (25.0-35.0) 01/16/17 05:00 MCHC 31.9 g/dl (31.0-37.0) 01/16/17 05:00 RDW 15.6 % (11.5-14.5) H 01/16/17 05:00 Plt Count 189 10^3/uL (120.0-450.0) 01/16/17 05:00 MPV 9.2 fl (7.0-11.0) 01/16/17 05:00 Gran % 33.5 % (50.0-68.0) L 01/16/17 05:00 Lymph % (Auto) 48.0 % (22.0-35.0) H 01/16/17 05:00 Beaver % (Auto) 12.1 % (1.0-6.0) H 01/16/17 05:00 Eos % (Auto) 6.1 % (1.5-5.0) H 01/16/17 05:00 Baso % (Auto) 0.3 % (0.0-3.0) 01/16/17 05:00 Gran # 1.16 (1.4-6.5) L 01/16/17 05:00 Lymph # 1.7 (1.2-3.4) 01/16/17 05:00 Beaver # 0.4 (0.1-0.6) 01/16/17 05:00 Eos # 0.2 (0.0-0.7) 01/16/17 05:00 Baso # 0.01 K/mm3 (0.0-2.0) 01/16/17 05:00 PT 11.3 Seconds (9.9-11.8) 01/16/17 07:00 INR 1.05 (0.93-1.08) 01/16/17 07:00 APTT 52.5 Seconds (23.7-30.8) H 01/15/17 13:00 pCO2 45 mm/Hg (35-45) 01/13/17 05:45 pO2 75.0 mm/Hg (80-100) L 01/13/17 05:45 HCO3 20.7 mmol/L (21-28) L 01/13/17 05:45 ABG pH 7.27 (7.35-7.45) L 01/13/17 05:45 ABG Total CO2 22.1 mmol.L (22-28) 01/13/17 05:45 ABG O2 Saturation 96.3 % (95-98) 01/13/17 05:45 ABG Base Excess -6.2 mmol/L (-2.0-3.0) L 01/13/17 05:45 ABG Potassium 3.7 mmol/L (3.6-5.2) 01/13/17 05:45 VBG pH 7.17 (7.32-7.43) L* 01/12/17 17:50 VBG pCO2 40.0 (40-60) 01/12/17 17:50 VBG HCO3 14.6 mmol/l (21-28) L 01/12/17 17:50 VBG Total CO2 15.8 mmol.L (22-28) L 01/12/17 17:50 VBG O2 Sat (Calc) 99.0 % (40-65) H 01/12/17 17:50 VBG Base Excess -13.1 mmol/L (0.0-2.0) L 01/12/17 17:50 VBG Potassium 5.8 mmol/L (3.6-5.2) H 01/12/17 17:50 Sodium 136.0 mmol/L (132-148) 01/13/17 05:45 Chloride 100.0 mmol/L (98-107) 01/13/17 05:45 Glucose 104 mg/dl (65-105) 01/13/17 05:45 Lactate 1.1 mmol/L (0.7-2.1) 01/13/17 05:45 FiO2 21.0 % 01/13/17 05:45 Sodium 141 mmol/L (132-148) 01/16/17 07:00 Potassium 3.8 mmol/L (3.6-5.0) 01/16/17 07:00 Chloride 112 mmol/L (95-110) H 01/16/17 07:00 Carbon Dioxide 21 mmol/L (21-33) 01/16/17 07:00 Anion Gap 12 (10-20) 01/16/17 07:00 BUN 10 mg/dL (7-21) 01/16/17 07:00 Creatinine 0.6 mg/dL (0.5-1.4) 01/16/17 07:00 Est GFR ( Amer) > 60 01/16/17 07:00 Est GFR (Non-Af Amer) > 60 01/16/17 07:00 POC Glucose (mg/dL) 94 mg/dL (65-110) 01/12/17 16:34 Random Glucose 73 mg/dL (70-110) 01/16/17 07:00 Uric Acid 8.2 mg/dL (2.5-6.2) H 01/15/17 05:20 Calcium 8.4 mg/dL (8.4-10.5) 01/16/17 07:00 Phosphorus 2.4 mg/dL (2.5-4.5) L 01/15/17 05:20 Magnesium 1.8 mg/dL (1.7-2.2) 01/13/17 21:05 Iron 16 ug/dL (45-180) L 01/12/17 17:50 TIBC 201 ug/dL (265-497) L 01/12/17 17:50 % Saturation 8 % (20-55) L 01/12/17 17:50 Ferritin 727.0 ng/mL 01/12/17 17:50 Total Bilirubin 0.3 mg/dL (0.2-1.3) 01/16/17 07:00 AST 34 U/L (15-39) 01/16/17 07:00 ALT 28 U/L (7-56) 01/16/17 07:00 Alkaline Phosphatase 56 U/L (38-133) 01/16/17 07:00 Ammonia 19 umol/L (9-33) 01/13/17 05:45 Total Creatine Kinase 963 U/L (35-230) H 01/15/17 05:20 CK-MB (CK-2) 3.5 ng/mL (0.0-3.6) 01/15/17 05:20 CK-MB (CK-2) % 0.4 % (2.5-3.0) L 01/14/17 05:30 Troponin I < 0.01 ng/mL D 01/12/17 17:50 Total Protein 5.7 g/dL (5.8-8.3) L 01/16/17 07:00 Albumin 2.8 g/dL (3.0-4.8) L 01/16/17 07:00 Globulin 2.9 gm/dL 01/16/17 07:00 Albumin/Globulin Ratio 1.0 (1.1-1.8) L 01/16/17 07:00 Lipase 70 U/L (23-300) 01/12/17 17:50 Free T4 1.00 ng/dL (0.78-2.19) 01/12/17 17:50 TSH 3rd Generation 1.50 mIU/mL (0.46-4.68) 01/12/17 17:50 Arterial Blood Potassium 3.7 mmol/L (3.6-5.2) 01/13/17 05:45 Venous Blood Potassium 5.8 mmol/L (3.6-5.2) H 01/12/17 17:50 Urine Color Yellow (YELLOW) 01/12/17 19:38 Urine Appearance Turbid (CLEAR) 01/12/17 19:38 Urine pH 6.0 (4.7-8.0) 01/12/17 19:38 Ur Specific [place] 1.020 (1.005-1.035) 01/12/17 19:38 Urine Protein 30 mg/dL (<30 mg/dL) H 01/12/17 19:38 Urine Glucose (UA) Negative mg/dL (NEGATIVE) 01/12/17 19:38 Urine Ketones Negative mg/dL (NEGATIVE) 01/12/17 19:38 Urine Blood Large (NEGATIVE) H 01/12/17 19:38 Urine Nitrate Negative (NEGATIVE) 01/12/17 19:38 Urine Bilirubin Negative (NEGATIVE) 01/12/17 19:38 Urine Urobilinogen 0.2 E.U./dL (<1 E.U./dL) 01/12/17 19:38 Ur Leukocyte Esterase Negative Zheng/uL (NEGATIVE) 01/12/17 19:38 Urine RBC 0 - 2 /hpf (0-2) 01/12/17 19:38 Urine WBC 0 - 2 /hpf (0-6) 01/12/17 19:38 Hyaline Casts 3-5 /hpf 01/12/17 19:38 Ur Random Creatinine 59 mg/dL 01/13/17 21:25 Ur Random Sodium 44 meq/L 01/13/17 21:25 Urine Microalbumin 20.5 mg/L (0.0-16.6) H 01/13/17 21:25 Urine Opiates Screen Positive (NEGATIVE) H 01/12/17 19:38 Urine Methadone Screen Negative (NEGATIVE) 01/12/17 19:38 Ur Barbiturates Screen Negative (NEGATIVE) 01/12/17 19:38 Ur Phencyclidine Scrn Negative (NEGATIVE) 01/12/17 19:38 Ur Amphetamines Screen Negative (NEGATIVE) 01/12/17 19:38 U Benzodiazepines Scrn Negative (NEGATIVE) 01/12/17 19:38 U Oth Cocaine Metabols Negative (NEGATIVE) 01/12/17 19:38 U Cannabinoids Screen Negative (NEGATIVE) 01/12/17 19:38 Alcohol, Quantitative < 10 mg/dL (0-10) 01/12/17 17:50 Rheumatoid Factor 8 IU/mL (<14) 01/13/17 14:20 JORDAN Screen Negative (NEGATIVE) 01/13/17 14:20 JORDAN Titer TNP 01/13/17 14:20 JORDAN Pattern TNP 01/13/17 14:20 JAMIE-1 Antibody <1.0 AI (<1.0) 01/13/17 14:20 JAMIE-1 Ab Interpret Negative (Negative) 01/13/17 14:20 SS-A Antibody <1.0 neg AI (<1.0 NEGATIVE) 01/13/17 14:20 SS-B Antibody <1.0 neg AI (<1.0 NEGATIVE) 01/13/17 14:20 Sm (Aden) Antibody <1.0 neg AI (<1.0 NEGATIVE) 01/13/17 14:20 SM/DIESEL ENGINE II PIPE FITTER Antibody <1.0 neg AI (<1.0 NEGATIVE) 01/13/17 14:20 Scl-70 Antibody <1.0 neg AI (<1.0 NEGATIVE) 01/13/17 14:20 Anti-ds DNA Titer (Crith) TNP 01/13/17 14:20 Anti-ds DNA (Crithidia) Negative (NEGATIVE) 01/13/17 14:20 Ribosomal P Prot Ab <1.0 neg AI (<1.0 NEGATIVE) 01/13/17 14:20 Actin IgG Antibody <20 U 01/13/17 14:20 Myocardial Ab Titer TNP 01/13/17 14:20 Anti-Myocardial Ab Negative (NEGATIVE) 01/13/17 14:20 Reticulin Ab Titer TNP 01/13/17 14:20 Reticulin IgA Antibody Negative (NEGATIVE) 01/13/17 14:20 Thyroperoxidase Ab 1 IU/mL (<9) 01/13/17 14:20 Anti-Parietal Cell Ab <20.0 U 01/13/17 14:20 Complement C3 130 mg/dL 01/13/17 14:20 Complement C4 39 mg/dL (ADULTS: 16-47) 01/13/17 14:20 Blood Type A POSITIVE 01/12/17 17:50 Antibody Screen Negative 01/12/17 17:50 BBK History Checked Patient has bt 01/12/17 17:50 - Hospital Course Hospital Course: 61 year old female with a past medical history Protein C defiency, warfarin skin necrosis, CVA, hypertension, DVT, and a recent admission for right knee pain treated with intra-articular knee injection who presented with 2 days of altered mental status, dizziness, headache, decreased PO intake, and dyspnea. A VBG showed that the patient was in metabolic acidosis and a bicarb drip was started. Patient was hypotensive in the ED and was given a total of 2.5 liters of NS in the ED and was admitted to the ICU. A CMP revealed a CPK was found to be over 7000, demonstrating rhabdomyolysis, and NS at 150mls/hr was started. CMP also demonstrated patient to have an JOSEFINA, with acute elevation in creatinine and BUN. With patients history of protein c deficiency and a demonstrated DVT on extremity ultrasound, she was started on a therapeutic heparin drip. Hem/Onc and Nephro were consulted. After patient became normotensive and her bicarb was switched from IV to PO, she was transferred to the med-surg floor. There, her fluids were continued until her CPK and kidney function returned to being within normal limits. Therapeutic heparin drip was discontinued and lovenox was started when INR became therapeutic and hem/onc recommended patient be discharged home on pradaxa, which she was. During her admission, patient mentioned that she had had hip pain and an xray of both hips and her pelvis were ordered and found to be negative for acute fractures. Once patient was medically stable, she was discharged on 01/16 with instructions to follow up with hem/onc within one week as well as follow up with her PMD within one week. Patient demonstrated verbal understanding to this plan. - Date & Time of H&P Date of H&P: 01/12/17 Time of H&P: 21:00 Discharge Exam - Head Exam Head Exam: ATRAUMATIC, NORMOCEPHALIC - Eye Exam Eye Exam: EOMI, Normal appearance, PERRL - ENT Exam ENT Exam: Mucous Membranes Moist, Normal Exam - Neck Exam Neck exam: Full Rom - Respiratory Exam Respiratory Exam: NORMAL BREATHING PATTERN, UNREMARKABLE. absent: Rales, Rhonchi, Wheezes, Respiratory Distress - Cardiovascular Exam Cardiovascular Exam: REGULAR RHYTHM, RRR, +S1, +S2 - GI/Abdominal Exam GI & Abdominal Exam: Normal Bowel Sounds, Soft, Unremarkable. absent: Distended , Firm, Guarding, Tenderness - Exam Exam: absent: Bladder Distension - Extremities Exam Additional comments: +1 edema to bilateral LE - Back Exam Back exam: absent: CVA tenderness (L), CVA tenderness (R) - Neurological Exam Neurological exam: Alert, Oriented x3 - Psychiatric Exam Psychiatric exam: Normal Affect, Normal Mood - Skin Skin Exam: Dry, Intact, Normal Color, Warm Discharge Plan - Discharge Medications Prescriptions: Dabigatran [Pradaxa] 150 mg PO BID #28 cap - Follow Up Plan Condition: CRITICAL Disposition: HOME/ ROUTINE Instructions: Rhabdomyolysis (GEN), Cholesterol and Your Health (GEN), Hypertension (GEN), Impaired Kidney Function (GEN) Additional Instructions: 1. Please follow up with Dr. Zendejas/Rosalia, Hematology, within two weeks of your discharge. 2. Please follow up with your PMD within two weeks for a post hospital visit appointment to discuss the medical issues addressed during your admission at [facility] [place]. 3. Please take all medications as prescribed. 4. If your symptoms should worsen or persist, please seek emergency medical care. Referrals: John Amezquita MD [Primary Care Provider] - Sae Lindsey MD [Staff Provider] - Sylvia Zendejas MD [Staff Provider] - <Kathe Garcia - Last Filed: 01/18/17 13:03> Provider - Provider Date of Admission: 01/12/17 19:34 Attending physician: Kathe Garcia MD Primary care physician: John Amezquita MD Hospital Course - Lab Results Lab Results: Micro Results 01/12/17 19:38 Urine Urine Culture - Final No Growth (<1,000 CFU/ML) Most Recent Lab Values WBC 3.5 10^3/ul (4.5-11.0) L 01/16/17 05:00 RBC 2.92 10^6/uL (3.5-6.1) L 01/16/17 05:00 Hgb 8.4 g/dL (12.0-16.0) L 01/16/17 05:00 Hct 26.3 % (36.0-48.0) L 01/16/17 05:00 MCV 90.1 fl (80.0-105.0) 01/16/17 05:00 MCH 28.8 pg (25.0-35.0) 01/16/17 05:00 MCHC 31.9 g/dl (31.0-37.0) 01/16/17 05:00 RDW 15.6 % (11.5-14.5) H 01/16/17 05:00 Plt Count 189 10^3/uL (120.0-450.0) 01/16/17 05:00 MPV 9.2 fl (7.0-11.0) 01/16/17 05:00 Gran % 33.5 % (50.0-68.0) L 01/16/17 05:00 Lymph % (Auto) 48.0 % (22.0-35.0) H 01/16/17 05:00 [place] % (Auto) 12.1 % (1.0-6.0) H 01/16/17 05:00 Eos % (Auto) 6.1 % (1.5-5.0) H 01/16/17 05:00 Baso % (Auto) 0.3 % (0.0-3.0) 01/16/17 05:00 Gran # 1.16 (1.4-6.5) L 01/16/17 05:00 Lymph # 1.7 (1.2-3.4) 01/16/17 05:00 [place] # 0.4 (0.1-0.6) 01/16/17 05:00 Eos # 0.2 (0.0-0.7) 01/16/17 05:00 Baso # 0.01 K/mm3 (0.0-2.0) 01/16/17 05:00 PT 11.3 Seconds (9.9-11.8) 01/16/17 07:00 INR 1.05 (0.93-1.08) 01/16/17 07:00 APTT 52.5 Seconds (23.7-30.8) H 01/15/17 13:00 pCO2 45 mm/Hg (35-45) 01/13/17 05:45 pO2 75.0 mm/Hg (80-100) L 01/13/17 05:45 HCO3 20.7 mmol/L (21-28) L 01/13/17 05:45 ABG pH 7.27 (7.35-7.45) L 01/13/17 05:45 ABG Total CO2 22.1 mmol.L (22-28) 01/13/17 05:45 ABG O2 Saturation 96.3 % (95-98) 01/13/17 05:45 ABG Base Excess -6.2 mmol/L (-2.0-3.0) L 01/13/17 05:45 ABG Potassium 3.7 mmol/L (3.6-5.2) 01/13/17 05:45 VBG pH 7.17 (7.32-7.43) L* 01/12/17 17:50 VBG pCO2 40.0 (40-60) 01/12/17 17:50 VBG HCO3 14.6 mmol/l (21-28) L 01/12/17 17:50 VBG Total CO2 15.8 mmol.L (22-28) L 01/12/17 17:50 VBG O2 Sat (Calc) 99.0 % (40-65) H 01/12/17 17:50 VBG Base Excess -13.1 mmol/L (0.0-2.0) L 01/12/17 17:50 VBG Potassium 5.8 mmol/L (3.6-5.2) H 01/12/17 17:50 Sodium 136.0 mmol/L (132-148) 01/13/17 05:45 Chloride 100.0 mmol/L (98-107) 01/13/17 05:45 Glucose 104 mg/dl (65-105) 01/13/17 05:45 Lactate 1.1 mmol/L (0.7-2.1) 01/13/17 05:45 FiO2 21.0 % 01/13/17 05:45 Sodium 141 mmol/L (132-148) 01/16/17 07:00 Potassium 3.8 mmol/L (3.6-5.0) 01/16/17 07:00 Chloride 112 mmol/L (95-110) H 01/16/17 07:00 Carbon Dioxide 21 mmol/L (21-33) 01/16/17 07:00 Anion Gap 12 (10-20) 01/16/17 07:00 BUN 10 mg/dL (7-21) 01/16/17 07:00 Creatinine 0.6 mg/dL (0.5-1.4) 01/16/17 07:00 Est GFR ( Amer) > 60 01/16/17 07:00 Est GFR (Non-Af Amer) > 60 01/16/17 07:00 POC Glucose (mg/dL) 94 mg/dL (65-110) 01/12/17 16:34 Random Glucose 73 mg/dL (70-110) 01/16/17 07:00 Uric Acid 8.2 mg/dL (2.5-6.2) H 01/15/17 05:20 Calcium 8.4 mg/dL (8.4-10.5) 01/16/17 07:00 Phosphorus 2.4 mg/dL (2.5-4.5) L 01/15/17 05:20 Magnesium 1.8 mg/dL (1.7-2.2) 01/13/17 21:05 Iron 16 ug/dL (45-180) L 01/12/17 17:50 TIBC 201 ug/dL (265-497) L 01/12/17 17:50 % Saturation 8 % (20-55) L 01/12/17 17:50 Ferritin 727.0 ng/mL 01/12/17 17:50 Total Bilirubin 0.3 mg/dL (0.2-1.3) 01/16/17 07:00 AST 34 U/L (15-39) 01/16/17 07:00 ALT 28 U/L (7-56) 01/16/17 07:00 Alkaline Phosphatase 56 U/L (38-133) 01/16/17 07:00 Ammonia 19 umol/L (9-33) 01/13/17 05:45 Total Creatine Kinase 963 U/L (35-230) H 01/15/17 05:20 CK-MB (CK-2) 3.5 ng/mL (0.0-3.6) 01/15/17 05:20 CK-MB (CK-2) % 0.4 % (2.5-3.0) L 01/14/17 05:30 Troponin I < 0.01 ng/mL D 01/12/17 17:50 Total Protein 5.7 g/dL (5.8-8.3) L 01/16/17 07:00 Albumin 2.8 g/dL (3.0-4.8) L 01/16/17 07:00 Globulin 2.9 gm/dL 01/16/17 07:00 Albumin/Globulin Ratio 1.0 (1.1-1.8) L 01/16/17 07:00 Lipase 70 U/L (23-300) 01/12/17 17:50 Free T4 1.00 ng/dL (0.78-2.19) 01/12/17 17:50 TSH 3rd Generation 1.50 mIU/mL (0.46-4.68) 01/12/17 17:50 Arterial Blood Potassium 3.7 mmol/L (3.6-5.2) 01/13/17 05:45 Venous Blood Potassium 5.8 mmol/L (3.6-5.2) H 01/12/17 17:50 Urine Color Yellow (YELLOW) 01/12/17 19:38 Urine Appearance Turbid (CLEAR) 01/12/17 19:38 Urine pH 6.0 (4.7-8.0) 01/12/17 19:38 Ur Specific [place] 1.020 (1.005-1.035) 01/12/17 19:38 Urine Protein 30 mg/dL (<30 mg/dL) H 01/12/17 19:38 Urine Glucose (UA) Negative mg/dL (NEGATIVE) 01/12/17 19:38 Urine Ketones Negative mg/dL (NEGATIVE) 01/12/17 19:38 Urine Blood Large (NEGATIVE) H 01/12/17 19:38 Urine Nitrate Negative (NEGATIVE) 01/12/17 19:38 Urine Bilirubin Negative (NEGATIVE) 01/12/17 19:38 Urine Urobilinogen 0.2 E.U./dL (<1 E.U./dL) 01/12/17 19:38 Ur Leukocyte Esterase Negative Zheng/uL (NEGATIVE) 01/12/17 19:38 Urine RBC 0 - 2 /hpf (0-2) 01/12/17 19:38 Urine WBC 0 - 2 /hpf (0-6) 01/12/17 19:38 Hyaline Casts 3-5 /hpf 01/12/17 19:38 Ur Random Creatinine 59 mg/dL 01/13/17 21:25 Ur Random Sodium 44 meq/L 01/13/17 21:25 Urine Microalbumin 20.5 mg/L (0.0-16.6) H 01/13/17 21:25 Urine Opiates Screen Positive (NEGATIVE) H 01/12/17 19:38 Urine Methadone Screen Negative (NEGATIVE) 01/12/17 19:38 Ur Barbiturates Screen Negative (NEGATIVE) 01/12/17 19:38 Ur Phencyclidine Scrn Negative (NEGATIVE) 01/12/17 19:38 Ur Amphetamines Screen Negative (NEGATIVE) 01/12/17 19:38 U Benzodiazepines Scrn Negative (NEGATIVE) 01/12/17 19:38 U Oth Cocaine Metabols Negative (NEGATIVE) 01/12/17 19:38 U Cannabinoids Screen Negative (NEGATIVE) 01/12/17 19:38 Alcohol, Quantitative < 10 mg/dL (0-10) 01/12/17 17:50 Rheumatoid Factor 8 IU/mL (<14) 01/13/17 14:20 JORDAN Screen Negative (NEGATIVE) 01/13/17 14:20 JORDAN Titer TNP 01/13/17 14:20 JORDAN Pattern TNP 01/13/17 14:20 JAMIE-1 Antibody <1.0 AI (<1.0) 01/13/17 14:20 JAMIE-1 Ab Interpret Negative (Negative) 01/13/17 14:20 SS-A Antibody <1.0 neg AI (<1.0 NEGATIVE) 01/13/17 14:20 SS-B Antibody <1.0 neg AI (<1.0 NEGATIVE) 01/13/17 14:20 Sm (Aden) Antibody <1.0 neg AI (<1.0 NEGATIVE) 01/13/17 14:20 SM/DIESEL ENGINE II PIPE FITTER Antibody <1.0 neg AI (<1.0 NEGATIVE) 01/13/17 14:20 Scl-70 Antibody <1.0 neg AI (<1.0 NEGATIVE) 01/13/17 14:20 Anti-ds DNA Titer (Crith) TNP 01/13/17 14:20 Anti-ds DNA (Crithidia) Negative (NEGATIVE) 01/13/17 14:20 Ribosomal P Prot Ab <1.0 neg AI (<1.0 NEGATIVE) 01/13/17 14:20 Anti-Mitochondrial Titr TNP 01/13/17 14:20 Anti-Mitochondrial Ab Negative (NEGATIVE) 01/13/17 14:20 Actin IgG Antibody <20 U 01/13/17 14:20 Striated Muscle Ab TNP 01/13/17 14:20 Myocardial Ab Titer TNP 01/13/17 14:20 Anti-Myocardial Ab Negative (NEGATIVE) 01/13/17 14:20 Reticulin Ab Titer TNP 01/13/17 14:20 Reticulin IgA Antibody Negative (NEGATIVE) 01/13/17 14:20 Thyroperoxidase Ab 1 IU/mL (<9) 01/13/17 14:20 Anti-Parietal Cell Ab <20.0 U 01/13/17 14:20 Complement C3 130 mg/dL 01/13/17 14:20 Complement C4 39 mg/dL (ADULTS: 16-47) 01/13/17 14:20 Blood Type A POSITIVE 01/12/17 17:50 Antibody Screen Negative 01/12/17 17:50 BBK History Checked Patient has bt 01/12/17 17:50 Attending/Attestation - Attestation I have personally seen and examined this patient.: Yes I have fully participated in the care of the patient.: Yes I have reviewed all pertinent clinical information, including history, physical exam and plan: Yes Notes (Text): I have seen and examined the patient at bedside. Agree with the above note with the following additions/ exceptions: Briefly this is 61 year old female with history of protein C deficiency, coumadin induced skin necrosis, CVA, HTN, and DVT, who presented with AMS and found to have recurrent rhabdomyolysis (most likely due to statins but autoimmune causes cannot be ruled out as the tests are pending), Acute kidney injury (resolved) and acute popliteal DVT. Patient is alert and oriented X3. She denies any complaints. Renal function is back to normal. JOSEFINA was most likely pre renal in setting of rhabdomyolysis. Advised the patient to stop taking statins. Nephrology consult appreciated. She was given heparin for DVT while in patient however recommended to start pradaxa upon discharge as per Dr Lindsey. Discussed with Dr Szymanski. Renetta lópez. Upon discharge patient will follow up with Dr Amezquita. Patient will need outpatient rheumatology, neurology follow up for possible EMG and muscle biopsy to evaluate the reason for recurrent rhabdomyolysis. Dr Kathe Garcia
== END 2017-01-16 15:11 | disposition home or self-care (01) | DRG 683 ==
LOC: ED 16:13 → ERH 19:34 → CCU 22:50 → 5RNO 01-14 12:10
PROVIDERS: ADMIT Internal Medicine; ATTEND Hospitalist
DX: N17.0 Acute kidney failure with tubular necrosis (principal); M62.82 Rhabdomyolysis; R57.9 Shock, unspecified; I96 Gangrene, not elsewhere classified; D68.59 Other primary thrombophilia; E87.2 Acidosis; I82.439 Acute embolism and thrombosis of unspecified popliteal vein; E87.1 Hypo-osmolality and hyponatremia; E83.39 Other disorders of phosphorus metabolism; N28.1 Cyst of kidney, acquired; D64.9 Anemia, unspecified; E86.0 Dehydration; E86.1 Hypovolemia; E87.5 Hyperkalemia; E87.6 Hypokalemia; I10 Essential (primary) hypertension; Z86.718 Personal history of other venous thrombosis and embolism; Z86.73 Personal history of transient ischemic attack (TIA), and cerebral infarction without residual deficits; Z87.440 Personal history of urinary (tract) infections; Z90.710 Acquired absence of both cervix and uterus; J45.909 Unspecified asthma, uncomplicated; K21.9 Gastro-esophageal reflux disease without esophagitis; T45.515A Adverse effect of anticoagulants, initial encounter; Z80.3 Family history of malignant neoplasm of breast; Z80.9 Family history of malignant neoplasm, unspecified; Z98.84 Bariatric surgery status; Z89.022 Acquired absence of left finger(s); Z89.021 Acquired absence of right finger(s); Z88.0 Allergy status to penicillin; E79.0 Hyperuricemia without signs of inflammatory arthritis and tophaceous disease; E88.09 Other disorders of plasma-protein metabolism, not elsewhere classified; D63.8 Anemia in other chronic diseases classified elsewhere

== ENCOUNTER 2017-03-19 19:34 | Inpatient (IN) | payer MEDICARE, OTHER ==
[2017-03-19 19:45] VITALS: BMI 28.3
[2017-03-19] MEDS ORDERED: Sodium Chloride 0.9% 1,000 ML IV STA (20:09)
--- NOTE | 2017-03-19 20:20 | ED PDOC ---
Arrival/HPI - General Chief Complaint: Trauma Time Seen by Provider: 03/19/17 20:07 - History of Present Illness Narrative History of Present Illness (Text): 03/19/17 20:17 Patient is a 61 y/o F with hx of protein c deficiency, warfarin skin necrosis, on eliquis, CVA, htn, dvt, r knee fracture, scheduled for knee replacement, with admissions for rhabdo, presenting after fall. Patient reports that she was cooking dinner when her R knee gave out and she fell, hitting her R knee and ankle. Denies LOC. Patient is also reporting that for the last 2 days she has had difficulty "putting words together." Now complaining of headache and generalized fatigue. Denies chest pain, shortness of breath, fever, cough, uri , diarrhea/constipation, hip pain. PMD: [facility]: Dr. Zendejas Past Medical History - Infectious Disease Hx of Infectious Diseases: None - Tetanus Immunization Tetanus Immunization: Unknown - Cardiac Hx Hypertension: Yes - Pulmonary Hx Asthma: Yes - Neurological Hx Paralysis: No - HEENT Hx HEENT Disorder: No - Renal Hx Renal Disorder: No - Endocrine/Metabolic Hx Endocrine Disorders: No - Hematological/Oncological Hx Blood Transfusions: Yes Hx Blood Transfusion Reaction: No - Integumentary Hx Dermatological Disorder: No - Musculoskeletal/Rheumatological Hx Falls: Yes Hx Rhabdomyolysis: Yes - Gastrointestinal Hx Gastrointestinal Disorders: No - Genitourinary/Gynecological Hx Genitourinary Disorders: Yes Hx Urinary Tract Infection: Yes - Psychiatric Hx Emotional Abuse: No Hx Physical Abuse: No Hx Substance Use: No - Past Surgical History Past Surgical History: Non-Contributing - Surgical History Hx Amputation: Yes (bilateral middle fingers) Hx Gastric Bypass Surgery: Yes Hx Hysterectomy: Yes - Anesthesia Hx Anesthesia: Yes Hx Anesthesia Reactions: No Hx Malignant Hyperthermia: No - Suicidal Assessment Feels Threatened In Home Enviroment: No Family/Social History Family/Social History: No Known Family HX Smoking Status: Never Smoked Hx Alcohol Use: No Hx Substance Use: No Hx Substance Use Treatment: No Allergies/Home Meds Allergies/Adverse Reactions: Allergies Penicillins Allergy (Verified 01/12/17 22:09) ANGIOEDEMA/SHORTNESS OF BREATH ANGIOEDEMA SHORTNESS OF BREATH Home Medications: Home Meds Medication Instructions Recorded Confirmed Pantoprazole [Protonix EC Tab] 40 mg PO BID 12/05/13 01/12/17 Valsartan [Diovan] 80 mg PO QPM 11/07/15 01/12/17 Metoprolol Tartrate 25 mg PO BID 12/10/15 01/12/17 Fluticasone Nasal [Flonase] 2 spr NS DAILY PRN 03/28/16 01/12/17 Furosemide [Lasix] 40 mg PO DAILY 03/28/16 01/12/17 Review of Systems - Review of Systems Constitutional: Fatigue. absent: Fevers Eyes: absent: Vision Changes ENT: absent: Hearing Changes Respiratory: absent: SOB, Cough, Sputum, Wheezing Cardiovascular: absent: Chest Pain, Palpitations, Edema, Calf Pain, FERNANDEZ, Orthopnea, Syncope Gastrointestinal: absent: Abdominal Pain, Constipation, Diarrhea, Nausea, Vomiting Genitourinary Female: absent: Dysuria Musculoskeletal: Arthralgias Skin: absent: Rash Neurological: Headache. absent: Focal Weakness, Gait Changes, Speech Changes Physical Exam Vital Signs Temp Pulse Resp BP Pulse Ox 03/19/17 19:35 97.1 F L 77 16 90/56 L 96 Temperature: Afebrile Blood Pressure: Hypotensive Pulse: Regular Respiratory Rate: Normal Appearance: Positive for: Well-Appearing, Non-Toxic, Comfortable Pain Distress: None Mental Status: Positive for: Alert and Oriented X 3 Finger Stick Blood Glucose: 151 - Systems Exam Head: Present: Atraumatic, Normocephalic Pupils: Present: PERRL Extroacular Muscles: Present: EOMI Conjunctiva: Present: Normal Mouth: Present: Dry Neck: Present: Normal Range of Motion. No: MIDLINE TENDERNESS Respiratory/Chest: Present: Clear to Auscultation, Good Air Exchange. No: Respiratory Distress Cardiovascular: Present: Regular Rate and Rhythm. No: Murmurs Abdomen: No: Tenderness, Distention Upper Extremity: Present: Normal Inspection Lower Extremity: Present: NORMAL PULSES, Other (tenderness and abrasion to R knee. tenderness to R ankle. distal pulses intact, no bony hip tenderness and normal ROM at hip) Neurological: Present: GCS=15, CN II-XII Intact, Speech Normal, Motor Func Grossly Intact, Normal Sensory Function Psychiatric: Present: Alert, Oriented x 3 Medical Decision Making ED Course and Treatment: 03/19/17 20:17 Impression: 61 year old female complaining of knee fracture, scheduled for knee replacement , with admissions for rhabdo, presenting after fall. ?change in speech. Now neurologically at baseline. Differential Diagnosis included but are not limited to: Plan: -- EKG -- Chest X-ray -- Right ankle X-ray -- Right Knee X-ray -- Urinalysis -- IV Fluids -- Reassess and disposition Prior Visits: Notes and results from previous visits were reviewed. Patient last seen in the ED on 01/12/17 for AMS. Patient was admitted to ICU. Progress Notes: EKG shows NSR at 72 BPM with non-specific ST Changes with no prior for comparison. Interpreted by me. 03/19/17 22:30 CT Head Without Intravenous Contrast: Dictated and Authenticated by: Maritza Frazier MD FINDINGS: Limitation:Streak artifact degrades image quality. Brain: Ventricles are normal in size and configuration. There is no midline shift. There are no intraaxial or extra-axial mass lesions or areas of hemorrhage. There are no abnormal fluid collections. Roldan-white differentiation is maintained. Ventricles: See above. Bones: Cranial vault is intact. Soft tissues: unremarkable Sinuses: There is no acute sinusitis. Ears and mastoids: Middle ears and mastoids are unremarkable Orbits: Orbital contents are unremarkable. IMPRESSION: No acute intracranial abnormality. 03/19/17 23:01 Reviewed radiology, Chest X-ray is negative. Right knee x-ray shows osteoarthritis, will repeat final read in the morning. Right Ankle x-ray is negative, will follow up with official read in the morning. Labs significant for elevated WBC. As well as elevated Creatinine, baseline 0.6 , now 1.4. Will transfer to telemetry observation for fluid hydration under Dr. West service. 03/19/17 23:[address] West who states that no longer follows patient. Patient is under Dr. Ho' service. 03/20/17 00:[address] Ho and did not get return page. Will admit to hospitalist for IV hydration for acute kidney injury and ?tia. Aspirin given. 03/20/17 01:[address] Patel and will admit to hospitalist 03/20/17 01:[address] Amezquita, who accepted patient to his service. Patient will be admitted under his name. - Lab Interpretations Lab Results: 03/19/17 20:00 03/19/17 20:00 Lab Results 03/19/17 20:00: Sodium 142, Potassium 4.1, Chloride 109 H, Carbon Dioxide 20 L, Anion Gap 17, BUN 18, Creatinine 1.4 H, Est GFR ( Amer) 46, Est GFR (Non- Af Amer) 38, Random Glucose 105, Calcium 8.9, Phosphorus 4.0, Magnesium 1.7, Total Bilirubin 0.7, AST 41 H, ALT 35, Alkaline Phosphatase 67, Total Creatine Kinase 35, Troponin I < 0.01, NT-Pro-B Natriuret Pep 199, Total Protein 7.3, Albumin 3.9, Globulin 3.3, Albumin/Globulin Ratio 1.2 03/19/17 20:00: PT 16.5 H, INR 1.50 H, APTT 33.2 03/19/17 20:00: WBC 14.1 H D, RBC 3.54, Hgb 10.7 L D, Hct 32.8 L, MCV 92.7, MCH 30.2, MCHC 32.6, RDW 15.4 H, Plt Count 275, MPV 9.8, Gran % 82.7 H, Lymph % ( Auto) 11.3 L, [place] % (Auto) 5.8, Eos % (Auto) 0.1 L, Baso % (Auto) 0.1, Gran # 11.64 H, Lymph # 1.6, [place] # 0.8 H, Eos # 0.0, Baso # 0.01 I have reviewed the lab results: Yes - RAD Interpretation Radiology Orders: 03/19/17 20:08 CHEST PORTABLE [RAD] Stat 03/19/17 20:09 HEAD W/O CONTRAST [CT] Stat 03/19/17 20:15 ANKLE RIGHT 3 VIEWS ROUTINE [RAD] Stat KNEE RIGHT 2 VIEWS (AP & LAT) [RAD] Stat - Medication Orders Current Medication Orders: Discontinued Medications Aspirin (Aspirin Chewable) 324 mg PO STAT STA Stop: 03/20/17 00:55 Sodium Chloride (Sodium Chloride 0.9%) 1,000 mls @ 999 mls/hr IV .Q1H1M STA Stop: 03/19/17 21:09 - Scribe Statement The provider has reviewed the documentation as recorded by the Sherwin Lowery Provider Scribe Attestation: All medical record entries made by the Scribe were at my direction and personally dictated by me. I have reviewed the chart and agree that the record accurately reflects my personal performance of the history, physical exam, medical decision making, and the department course for this patient. I have also personally directed, reviewed, and agree with the discharge instructions and disposition. Disposition/Present on Arrival - Present on Arrival Any Indicators Present on Arrival: No History of DVT/PE: No History of Uncontrolled Diabetes: No Urinary Catheter: No History of Decub. Ulcer: No History Surgical Site Infection Following: None - Disposition Have Diagnosis and Disposition been Completed?: Yes Diagnosis: Acute renal failure Disposition: HOSPITALIZED Disposition Time: 02:23 Patient Plan: Observation Patient Problems: Current Active Problems Problem Status Onset Acute renal failure Acute Condition: FAIR
[2017-03-19 20:39] LABS: BASO # 0.01 K/mm3 (0.0-2.0); BASO % 0.1 % (0.0-3.0); EOS % 0.1 % (1.5-5.0); GRAN # 11.64 (1.4-6.5); GRAN % 82.7 % (50.0-68.0); HEMATOCRIT 32.8 % (36.0-48.0); LYMPH # 1.6 (1.2-3.4); LYMPH % 11.3 % (22.0-35.0); MEAN CELL VOLUME 92.7 fl (80.0-105.0); MEAN CORPUSCULAR HEMOGLOBIN 30.2 pg (25.0-35.0); MEAN CORPUSCULAR HGB CONC 32.6 g/dl (31.0-37.0); MEAN PLATELET VOLUME 9.8 fl (7.0-11.0); MONO # 0.8 (0.1-0.6); MONO % 5.8 % (1.0-6.0); RED CELL DISTRIBUTION WIDTH 15.4 % (11.5-14.5); WHITE BLOOD COUNT 14.1 10^3/ul (4.5-11.0)
[2017-03-19 20:42] LABS: ALB/GLOB RATIO 1.2 (1.1-1.8); ALKALINE PHOSPHATASE 67 U/L (38-126); ALT/SGPT 35 U/L (7-56); AST/SGOT 41 U/L (14-36); BILIRUBIN,TOTAL 0.7 mg/dL (0.2-1.3); BLOOD UREA NITROGEN 18 mg/dL (7-21); CALCIUM 8.9 mg/dL (8.4-10.5); CARBON DIOXIDE 20 mmol/L (21-33); CHLORIDE 109 mmol/L (98-107); GFR AFRICAN-AMERICAN 46; GLUCOSE,RANDOM 105 mg/dL (70-110); MAGNESIUM 1.7 mg/dL (1.7-2.2); POTASSIUM 4.1 mmol/L (3.6-5.0); SODIUM 142 mmol/L (132-148); TOTAL PROTEIN 7.3 g/dL (5.8-8.3)
[2017-03-19 20:43] LABS: INR 1.5 (0.93-1.08); PARTIAL THROMBOPLASTIN TIME 33.2 Seconds (25.1-36.5)
[2017-03-19 20:55] LABS: TROPONIN I < 0.01 ng/mL
--- NOTE | 2017-03-19 22:23 | CT ---
EXAM: CT Head Without Intravenous Contrast EXAM DATE/TIME: 03/19/2017 8:09 PM CLINICAL HISTORY: 61 years old, female; Signs and symptoms; Alteration of consciousness; Syncope and collapse; Patient HX: Fall, altered TECHNIQUE: Axial computed tomography images of the head/brain without intravenous contrast. All CT scans at this facility use one or more dose reduction techniques, viz.: automated exposure control; ma/kV adjustment per patient size (including targeted exams where dose is matched to indication; i.e. head); or iterative reconstruction technique. COMPARISON: CT - HEAD W/O CONTRAST 2017-01-12 19:08 FINDINGS: Limitation:Streak artifact degrades image quality. Brain: Ventricles are normal in size and configuration. There is no midline shift. There are no intra-axial or extra-axial mass lesions or areas of hemorrhage. There are no abnormal fluid collections. Roldan-white differentiation is maintained. Ventricles: See above. Bones: Cranial vault is intact. Soft tissues: unremarkable Sinuses: There is no acute sinusitis. Ears and mastoids: Middle ears and mastoids are unremarkable Orbits: Orbital contents are unremarkable. IMPRESSION: No acute intracranial abnormality
[2017-03-20] MEDS ORDERED: oxyCODONE 30 mg Immediate Release Tab PO PRN (01:39)
[2017-03-20] MEDS ORDERED: Fluticasone Nasal 50 mcg/Spray NS PRN ×2 (01:39→10:00)
[2017-03-20] MEDS ORDERED: Morphine 2 mg/ml ISec IVP STA (02:38)
[2017-03-20] MEDS: Sodium Chloride 0.9% 1,000 ML IV SCH ×3 (03:06→22:55)
[2017-03-20] MEDS ORDERED: Albuterol 0.083% Inhal Sol (2.5 mg/3 mL) UD IH SCH (03:30)
[2017-03-20] MEDS ORDERED: Influenza Vaccine 60 mcg/0.5 mL SYR (4YR UP) IM ONE ×2 (03:56→17:45)
--- NOTE | 2017-03-20 04:13 | CP.PCM.HP ---
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 Pt was in her kitchen cooking when she all of a sudden felt a sharp pain down her right leg and subsequently felt her Rt knee give out. Pt does no recall falling to the floor however awoke once on the floor. She admits to hitting her head on her left side with laceration above the left orbit and laceration tot he rt knee. Pt admitted to headache which has improved , and generalized weakness as well as rt knee pain. Pt denied fever, chills, sob , chest pains, abdominal pains, n/v/d/c or urinary symptoms. PMHx: As above PSHx: Tonsillectomy, double mastectomy, b/l ring finger amputation, gastric bypass SHx: Denied tobacco/etoh/illicit abuse, ambulates with assistive device FamHx: Extensive family history of cancer. Mom: Breast Ca, Dad: metastatic cancer, unknown Meds: protonix, diovan, metoprolol, flonase, lasix, elaquis, gabapentin, oxycodone Allergies: PCN PMD: [facility]: Dr. Zendejas Present on Admission - Present on Admission Any Indicators Present on Admission: Yes History of DVT/PE: Yes Review of Systems - Review of Systems Review of Systems: As per HPI otherwise negative Past Patient History - Infectious Disease Hx of Infectious Diseases: None - Tetanus Immunizations Tetanus Immunization: Unknown - Past Medical History & Family History Past Medical History?: Yes - Past Social History Smoking Status: Never Smoked - CARDIAC Hx Cardiac Disorders: Yes Hx Hypercholesterolemia: Yes Hx Hypertension: Yes Other/Comment: A-fib - PULMONARY Hx Respiratory Disorders: Yes Hx Asthma: Yes - NEUROLOGICAL Hx Neurological Disorder: No - HEENT Hx HEENT Problems: No - RENAL Hx Chronic Kidney Disease: No - ENDOCRINE/METABOLIC Hx Endocrine Disorders: No - HEMATOLOGICAL/ONCOLOGICAL Hx Blood Disorders: No - INTEGUMENTARY Hx Dermatological Problems: No - MUSCULOSKELETAL/RHEUMATOLOGICAL Hx Musculoskeletal Disorders: No Hx Falls: Yes - GASTROINTESTINAL Hx Gastrointestinal Disorders: Yes Other/Comment: Gastric Bypass Surgery - GENITOURINARY/GYNECOLOGICAL Hx Genitourinary Disorders: Yes Hx Urinary Tract Infection: Yes - PSYCHIATRIC Hx Psychophysiologic Disorder: No Hx Substance Use: No - SURGICAL HISTORY Hx Surgeries: Yes Hx Gastric Bypass Surgery: Yes Hx Hysterectomy: Yes Hx Mastectomy: Yes (B/L Mastectomy) - ANESTHESIA Hx Anesthesia: Yes Hx Anesthesia Reactions: No Hx Malignant Hyperthermia: No Meds Allergies/Adverse Reactions: Allergies Allergy/AdvReac Type Severity Reaction Status Date / Time Penicillins Allergy ANGIOEDEMA/SHORTNESS Verified 01/12/17 22:09 OF BREATH Physical Exam - Constitutional Appears: No Acute Distress - Head Exam Additional comments: laceration above the left orbit - Eye Exam Eye Exam: EOMI, Normal appearance, PERRL Pupil Exam: NORMAL ACCOMODATION, PERRL - ENT Exam ENT Exam: Mucous Membranes Moist, Normal Exam - Respiratory Exam Respiratory Exam: Clear to Auscultation Bilateral, NORMAL BREATHING PATTERN - Cardiovascular Exam Cardiovascular Exam: REGULAR RHYTHM, +S1, +S2 - GI/Abdominal Exam GI & Abdominal Exam: Normal Bowel Sounds, Soft. absent: Tenderness - Extremities Exam Extremities exam: Positive for: joint swelling, tenderness - Neurological Exam Neurological exam: Alert, CN II-XII Intact, Oriented x3, Reflexes Normal - Psychiatric Exam Psychiatric exam: Normal Affect, Normal Mood - Skin Skin Exam: Dry, Intact, Normal Color, Warm Results - Vital Signs Recent Vital Signs: Last Vital Signs Temp 97.1 F L 03/19/17 19:35 Pulse 84 03/20/17 03:05 Resp 20 03/20/17 03:05 BP 98/64 L 03/20/17 01:35 Pulse Ox 100 03/20/17 01:35 - Labs Result Diagrams: 03/19/17 20:00 03/19/17 20:00 Assessment & Plan - Assessment and Plan (Free Text) Assessment: 61 year old AA female with a past medical history significant for protein C deficiency, coumadin induced skin necrosis, CVA, HTN, and DVT, who presented s/ p with brief loc. Fall with brief LOC CTH Negative for any intracranial pathology neurology consulted, Dr. Jose Bryan Xrays, ankle knee Ortho consulted, Dr. El Most recent Echo 10/2016: EF: 63% FU tsh, orthostatics, consider carotid dopplers Protein C deficiency hx of DVT IVC filter placed Elaquis 2.5 mg BID HTN holding anti-htn at this time due to low normal BP Cr slightly elevated, holding ACEi Continue to monitor CVA hx of TIA asa, FU neuro reccs OA analgesics zofran prn Rt knee fracture, Ortho consulted fu reccs Leukocytosis fu cxr fu blood cx fu ua/ucx afebrile, no systemic signs of infx continue to monitor PT eval GI DVT ppx Discussed and reviewed with attending
[2017-03-20] MEDS: Pantoprazole 40 mg EC Tab PO SCH ×2 (05:13→17:29)
--- NOTE | 2017-03-20 08:53 | RAD ---
PROCEDURE: Right Knee Radiographs. HISTORY: fall, hx of fracture, now with worsening pain COMPARISON: None. FINDINGS: BONES: No acute fracture. JOINTS: Tricompartmental osteoarthritis with severe lateral and patellofemoral osteoarthritis and mild medial osteoarthritis. No articular erosions. Extensive marginal hypertrophy about both the lateral compartment and the patellofemoral articulation. JOINT EFFUSION: None. OTHER FINDINGS: None. IMPRESSION: Tricompartmental osteoarthritis most severe in the lateral and patellofemoral articulations.
--- NOTE | 2017-03-20 09:00 | RAD ---
HISTORY: fall COMPARISON: 01/12/2017 FINDINGS: LUNGS: No active pulmonary disease. PLEURA: No pleural effusion. Mammilation contour right hemidiaphragm, unchanged. CARDIOVASCULAR: Normal. OSSEOUS STRUCTURES: No significant abnormalities. VISUALIZED UPPER ABDOMEN: Normal. OTHER FINDINGS: None. IMPRESSION: No active disease.
--- NOTE | 2017-03-20 09:00 | RAD ---
PROCEDURE: Right Ankle Radiographs. HISTORY: fall with pain COMPARISON: None FINDINGS: BONES: There is a sclerotic line traversing the base of the 5th metatarsal. There is no displacement. Nevertheless, this raises suspicion of nondisplaced fracture at the base of the 5th metatarsal. Please correlate clinically and consider further radiographic evaluation. No other fracture is identified. JOINTS: Normal. No osteoarthritis. Ankle mortise maintained. Talar dome intact SOFT TISSUES: Normal. OTHER FINDINGS: None. IMPRESSION: Findings suspicious for nondisplaced fracture at the base of the 5th metatarsal. Further evaluation is advised.
[2017-03-20] MEDS ORDERED: MethylPREDNISolone Depo 40 mg/ml Inj IM ONE (09:33)
[2017-03-20] MEDS ORDERED: Bupivacaine 0.5% Inj(30mL) IJ ONE (09:35)
[2017-03-20 09:53] LABS: URINE BILIRUBIN NEGATIVE (NEGATIVE); URINE BLOOD TRACE-INTACT (NEGATIVE); URINE GLUCOSE (UA) NEGATIVE (NEGATIVE); URINE KETONE NEGATIVE (NEGATIVE); URINE LEUKOCYTE ESTERASE LARGE Leu/uL (NEGATIVE); URINE PROTEIN TRACE mg/dL (<30 mg/dL)
[2017-03-20 09:54] LABS: URINE APPEARANCE TURBID (CLEAR); URINE COLOR YELLOW (YELLOW)
[2017-03-20] MEDS ORDERED: Oxycodone/Acetaminophen 5/325 mg Tab PO STA (09:58)
[2017-03-20] MEDS ORDERED: Pantoprazole 40 mg EC Tab PO SCH (10:00)
[2017-03-20 10:13] LABS: URINE BACTERIA MANY (NEG); URINE RBC 0 - 2 /hpf (0-2); URINE WBC TNTC /hpf (0-6)
--- NOTE | 2017-03-20 11:56 | CON ---
ORTHOPEDIC CONSULT REPORT DATE: 03/20/2017 LOCATION: She is in room 268, bed 2. HISTORY OF PRESENT ILLNESS: She tripped and fell yesterday around the stairs and preexisting genu valgum with advanced osteoarthritis to lateral joint line and injured her knee when she fell and became swollen, and she also injured her right ankle and that became swollen. X-rays of the knees showed the preexisting osteoarthritis with genu valgum about 15 degrees and the ankle showed no arthritis and no fracture, and the right knee did not show any fracture either, but it is swollen and tender to touch and it is swollen medially and laterally. So, I put the right ankle in an air cast to help stabilize the ankle and we will get a CAT scan of her knee and ankle to see if there is any occult fractures that may be producing the swelling and aggravating the pain. So, I put her in an air cast for now on the right ankle and I aspirated the knee of 20 mL of blood. There was no apparent fat particles in it, but I injected it with Depo-Medrol and Marcaine. I was trying to order her a right knee brace with a lateral unloading kind of brace. Now, we will have to do that after we establish a better diagnosis for the right knee, which is either osteoarthritis, which it is; or make sure she does not have an occult fracture with the CAT scan and the same thing for the right ankle. We will get a CAT scan of that to make sure she has no fracture . bones appear weak and osteopenic. I will re-dictate a report after I see the CAT scan of the ankle and the knee on the right. Sae Avila DO ZORA
--- NOTE | 2017-03-20 12:37 | CT ---
PROCEDURE: CT of the right ankle without contrast HISTORY: RIGHT ANKLE R/O OCCULT FX COMPARISON: TECHNIQUE: Axial imaging with sagittal and coronal reconstructions FINDINGS: There is no evidence of fracture or osteochondral defect. There is no evidence of osteomyelitis. There is no subcutaneous edema. IMPRESSION: Negative study
[2017-03-20] MEDS: oxyCODONE 30 mg Immediate Release Tab PO PRN ×2 (12:49→22:53)
--- NOTE | 2017-03-20 13:01 | CT ---
PROCEDURE: CT of the right knee without contrast HISTORY: evaluation for cccult fx rt knee n ankle COMPARISON: TECHNIQUE: CT of the right knee was performed in the axial plane with sagittal and coronal reconstructions. FINDINGS: Severe degenerative changes are seen in the medial and lateral joint compartment with osteophyte formation and joint space narrowing. Degenerative changes are also seen in the patellofemoral joint. There is a minimal nondisplaced fracture along edge of the patella on the lateral side. This can be seen on image 44 series 2. There is a moderate-sized joint effusion. There is some air seen within the joint space that is presumably secondary to a recent aspiration. IMPRESSION: Minimal nondisplaced fracture along the edge of the patella on the lateral side. Severe osteoarthritis
--- NOTE | 2017-03-20 17:15 | MRI ---
PROCEDURE: MRI BRAIN WITHOUT CONTRAST HISTORY: syncope COMPARISON: 06/24/2015 MRI TECHNIQUE: Multiplanar, multisequence MR images of the brain were obtained without intravenous contrast enhancement. FINDINGS: HEMORRHAGE: None DWI: No evidence of an acute or early subacute infarction. BRAIN PARENCHYMA: No mass effect or edema. There is a small chronic lacunar infarct in the mary kay. VENTRICLES: Unremarkable. No hydrocephalus. CRANIUM: Unremarkable. ORBITS: Grossly unremarkable. PARANASAL SINUSES/MASTOIDS: Clear VASCULAR SYSTEM: Skull base flow voids intact. OTHER FINDINGS: There is an enlarged empty sella which is an anatomic variant IMPRESSION: No acute findings
[2017-03-20] MEDS ORDERED: Non Formulary Medication (Valsartan [Diovan] 80 MG) PO SCH (18:00)
--- NOTE | 2017-03-20 18:44 | CON ---
NEUROLOGY CONSULTATION DATE: REASON FOR CONSULTATION: Questionable TIA. HISTORY OF PRESENT ILLNESS: The patient is a 61-year-old female who has been asked for evaluation of possible TIA. The patient was in her kitchen cooking yesterday and the next thing she knows she was on the floor. She did not have any chest pain or palpitation, did not have any dizziness prior to passing out. She had no urinary incontinence or tongue biting. She has gotten herself up somehow and went to the bed and after that, she remembers she was bleeding from her head. She does not remember how she got to the hospital. According to the patient, she had 2 episodes of passing out in the past few months ago. REVIEW OF SYSTEMS: Denies any headache, dizziness, chest pain, shortness of breath, abdominal pain, constipation, diarrhea, does complain of pain in the right knee. PAST MEDICAL HISTORY: Includes hypertension, atrial fibrillation, hyperglycemia, protein C deficiency. PAST SURGICAL HISTORY: Includes bilateral mastectomies and ring finger amputation, tonsillectomy, and gastric bypass. MEDICATIONS: At home include oxycodone p.r.n., losartan, Protonix, metoprolol, gabapentin, Lasix, Flonase, Pradaxa, and potassium chloride. ALLERGIES: PENICILLIN. SOCIAL HISTORY: Denies smoking, use of alcohol, or illicit drugs. FAMILY HISTORY: Reviewed and noncontributory to the case. PHYSICAL EXAMINATION: GENERAL: The patient is an elderly pleasant female, lying on the bed, in no acute distress. VITAL SIGNS: Her blood pressure is 99/74 lying and 95/63 standing. Her heart rate is 75 per minute, breathing at the rate of 16 per minute, temperature is 98.5 degrees Fahrenheit. HEENT: Head is normocephalic and atraumatic. NECK: Supple. There are no carotid bruits. LUNGS: Clear. CARDIOVASCULAR EXAM: S1 and S2 are audible. No murmurs. ABDOMEN: Soft and nontender. Bowel sounds are present. NEUROLOGICAL EXAMINATION: The patient is awake, alert, and oriented to time, place, and person. Speech is fluent. Naming and repetition normal. Memory and cognition are intact. Cranial nerve exam: The pupils are 3 mm bilaterally reactive to light. Visual giraldo are full. Extraocular movements are intact. There is no facial asymmetry. Tongue is midline. Motor Examination: Tone is normal. Power is 5/5 bilaterally in all extremities; however, there is limited movement in the right lower extremity secondary to right knee pain. Reflexes are 1+ and symmetrical. Plantars downgoing bilaterally. Cerebellar Examination: [id number] shows no dysmetria. Gait is deferred at the moment. LABORATORY DATA: Labs reviewed, shows WBC of 14.1, hemoglobin of 10.7, hematocrit of 32.8, platelets of 275. INR is 1.5. Sodium is 142, potassium 4.1, chloride of 109, carbon dioxide 20, BUN of 18, creatinine 1.4, glucose of 105. She had CT scan of the head done, which shows no acute intracranial pathology. IMPRESSION: 1. Recurrent syncope, rule out seizure versus cardiac arrhythmia. 2. History of atrial fibrillation. RECOMMENDATIONS: 1. The patient to have MRI of the brain without contrast. 2. The patient also to have an electroencephalogram. 3. The patient to have cardiac monitoring to rule out any cardiac arrhythmias. 4. Please continue supportive care and other treatment. Thank you for the opportunity to participate in the care of this patient. Yvonne Garcia MD
--- NOTE | 2017-03-20 23:04 | CARD ---
APPROVED REPORT EKG Measurement Heart [id number] CO [id number] <Conclusion> Normal sinus rhythm Possible Left atrial enlargement Low voltage QRS Nonspecific T wave abnormality Abnormal ECG
[2017-03-21] MEDS: oxyCODONE 30 mg Immediate Release Tab PO PRN ×4 (05:16→23:47)
[2017-03-21 07:39] LABS: GRAN # 8.33 (1.4-6.5); GRAN % 81.8 % (50.0-68.0); HEMATOCRIT 27.8 % (36.0-48.0); LYMPH # 1.4 (1.2-3.4); LYMPH % 13.3 % (22.0-35.0); MEAN CELL VOLUME 93.9 fl (80.0-105.0); MEAN CORPUSCULAR HEMOGLOBIN 30.1 pg (25.0-35.0); MEAN PLATELET VOLUME 9.2 fl (7.0-11.0); MONO # 0.5 (0.1-0.6); MONO % 4.9 % (1.0-6.0); RED CELL DISTRIBUTION WIDTH 15.7 % (11.5-14.5); WHITE BLOOD COUNT 10.2 10^3/ul (4.5-11.0)
[2017-03-21 07:55] LABS: ALB/GLOB RATIO 1.1 (1.1-1.8); ALKALINE PHOSPHATASE 66 U/L (38-126); ALT/SGPT 30 U/L (7-56); AST/SGOT 28 U/L (14-36); BILIRUBIN,TOTAL 0.4 mg/dL (0.2-1.3); BLOOD UREA NITROGEN 21 mg/dL (7-21); CALCIUM 8.8 mg/dL (8.4-10.5); CARBON DIOXIDE 22 mmol/L (21-33); CHLORIDE 112 mmol/L (98-107); CHOLESTEROL 113 mg/dL (130-200); GFR AFRICAN-AMERICAN > 60; GLUCOSE,RANDOM 111 mg/dL (70-110); MAGNESIUM 1.8 mg/dL (1.7-2.2); PHOSPHOROUS 3.3 mg/dL (2.5-4.5); POTASSIUM 4.4 mmol/L (3.6-5.0); SODIUM 142 mmol/L (132-148); TOTAL PROTEIN 6.6 g/dL (5.8-8.3)
[2017-03-21] MEDS: Oxycodone/Acetaminophen 5/325 mg Tab PO PRN ×3 (09:13→21:05)
[2017-03-21] MEDS: Sodium Chloride 0.9% 1,000 ML IV SCH (09:45)
--- NOTE | 2017-03-21 13:51 | CP.PCM.PN ---
Subjective - Date & Time of Evaluation Date of Evaluation: 03/21/17 Time of Evaluation: 06:00 - Subjective Subjective: Patient was seen and evaluated bedside, she was eating breakfast. Patient states she has been walking around slowly to get to the bathroom and that the air cast on the right ankle has helped her. She denies any CP, SOB, abdominal pain, muscle pain, fever, chills, nausea, vomiting or any other complaints. Objective - Vital Signs/Intake and Output Vital Signs (last 24 hours): Temp Pulse Resp BP Pulse Ox 98.6 F 60 18 131/74 100 03/21/17 06:00 03/21/17 10:00 03/21/17 06:00 03/21/17 09:13 03/21/17 06:00 Intake and Output: 03/21/17 03/21/17 06:59 18:59 Intake Total 1440 Output Total 0 Balance 1440 - Medications Medications: Current Medications Aspirin (Ecotrin) 81 mg PO DAILY [facility] Last Admin: 03/21/17 09:13 Dose: 81 mg Docusate Sodium (Colace) 100 mg PO BID [facility] Last Admin: 03/21/17 09:13 Dose: 100 mg Fluticasone Propionate (Flonase) 1 actuation NS DAILY PRN PRN Reason: ALLERGY SYMPTOMS Furosemide (Lasix) 40 mg PO DAILY [facility] Last Admin: 03/21/17 09:13 Dose: 40 mg Gabapentin (Neurontin) 300 mg PO TID [facility] PRN Reason: Protocol Last Admin: 03/21/17 09:13 Dose: 300 mg Sodium Chloride (Sodium Chloride 0.9%) 1,000 mls @ 100 mls/hr IV .Q10H [facility] Last Admin: 03/20/17 22:55 Dose: 100 mls/hr Ondansetron HCl (Zofran Inj) 4 mg IVP Q4H PRN PRN Reason: Nausea/Vomiting Oxycodone HCl (Oxycodone Immediate Release Tab) 30 mg PO Q6H PRN PRN Reason: Pain, severe (8-10) Last Admin: 03/21/17 11:18 Dose: 30 mg Oxycodone/Acetaminophen (Percocet 5/325 Mg Tab) 1 tab PO Q6H PRN PRN Reason: Pain, moderate (4-7) Stop: 03/24/17 08:48 Last Admin: 03/21/17 09:13 Dose: 1 tab Pantoprazole Sodium (Protonix Ec Tab) 40 mg PO 0600,1600 [facility] Last Admin: 03/20/17 17:29 Dose: 40 mg Valsartan (Diovan) 80 mg PO DAILY [facility] - Labs Labs: 03/21/17 07:20 03/21/17 07:20 PT 16.5 SECONDS (9.4-12.5) H 03/19/17 20:00 INR 1.50 (0.93-1.08) H 03/19/17 20:00 APTT 33.2 Seconds (25.1-36.5) 03/19/17 20:00 - Constitutional Appears: Non-toxic, No Acute Distress - Head Exam Head Exam: ATRAUMATIC, NORMAL INSPECTION, NORMOCEPHALIC - Eye Exam Eye Exam: EOMI, Normal appearance Pupil Exam: NORMAL ACCOMODATION, PERRL - ENT Exam ENT Exam: Mucous Membranes Moist - Neck Exam Neck Exam: Normal Inspection - Respiratory Exam Respiratory Exam: Clear to Ausculation Bilateral, NORMAL BREATHING PATTERN - Cardiovascular Exam Cardiovascular Exam: REGULAR RHYTHM, +S1, +S2 - GI/Abdominal Exam GI & Abdominal Exam: Normal Bowel Sounds. absent: Distended, Tenderness - Extremities Exam Extremities Exam: Joint Swelling Additional comments: swelling in right knee, air cast on right ankle - Neurological Exam Neurological Exam: Alert, Awake, Oriented x3 - Psychiatric Exam Psychiatric exam: Normal Mood Assessment and Plan - Assessment and Plan (Free Text) Assessment: 61 year old AA female with a past medical history significant for protein C deficiency, coumadin induced skin necrosis, CVA, HTN, and DVT, who presented s/ p with brief loc. She is being worked up for syncope and evaluation of possible fracture. Plan: Fall with brief LOC CTH Negative for any intracranial pathology MRI w/o contrast: no hemorrhage no acute findings neurology consulted, Dr. Garcia: EEG ordered: negative Xray ankle: non displaced fracture at the base of the 5th xray knee: tricompartmental osteoarthritis Ortho consulted, Dr. El, will follow recs CT Right Knee: non diplaced fracture along edge of patella on the lateral side CT right ankle: negative study Most recent Echo 10/2016: EF: 63% FU TSH orthostatics obtained normal consider carotid dopplers Protein C deficiency hx of DVT IVC filter placed Elaquis 2.5 mg BID-held HTN Started cozaar 80 mg Continue to monitor CVA hx of TIA asa, FU neuro recs OA analgesics zofran prn Rt knee fracture, Ortho consulted fu reccs Leukocytosis-resolved WBC: 10.2 fu cxr fu blood cx fu ua/ucx afebrile, no systemic signs of infx continue to monitor PT eval GI DVT ppx Discussed and reviewed with attending
--- NOTE | 2017-03-21 15:08 | PN ---
DATE: 03/21/2017 LOCATION: A 61-year-old female, room 268, bed 2. The patient feels much better in the right knee aspirating her hemarthrosis and a CAT scan shows avulsion fracture of the lateral side of the right patellar, which is aggravated by her for existing osteoarthritis of the right knee with the valgus deformity and her right knee feels little better since we applied the air cast. She does not need a knee brace because her fracture is so stable that would make her much weaker. She has good ability to do full straight leg raising and can flex and extend her knee to approximately 70 degrees without too much discomfort, which will get better in time. The fracture will heal. Adding Ha bandage or splint would just make her ankle swell more, which is mildly swollen from the ankle sprain that she incurred medially and laterally, but the air cast was definitely needed on the right ankle, when she ambulates. 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 So, final diagnosis besides the genu valgum with osteoarthritis and right ankle sprain, she now has a small patellar fracture that is stable and treat her with early ambulation with a walker and strengthening exercise and to the wear the air cast and to avoid Ha bandage on the right knee. So I will follow her in the office. Sae Avila DO
[2017-03-21] MEDS: Pantoprazole 40 mg EC Tab PO SCH (17:19)
--- NOTE | 2017-03-22 | PN ---
DATE: NEUROLOGY PROGRESS NOTE SUBJECTIVE: The patient is lying on the bed, in no acute distress. Denies having any headache or dizziness. PHYSICAL EXAMINATION VITAL SIGNS: Blood pressure is 145/76, heart rate 63 per minute, breathing at a rate of 16 per minute, temperature is 98.6 degrees Fahrenheit. HEENT: Head is normocephalic and atraumatic. NECK: Supple. There are no carotid bruits. LUNGS: Clear. CARDIOVASCULAR: S1 and S2 audible. No murmurs. ABDOMEN: Soft and nontender. Bowel sounds are present. NEUROLOGIC: Mental status: She is awake, alert and oriented to time, place, and person. Speech is fluent. Naming and repetition is normal. Memory and cognition are intact. Cranial nerve examination: Pupils are 3 mm bilaterally, reactive to light. Visual giraldo are full. Extraocular movements are intact. There is no facial asymmetry. Tongue is midline. Motor examination: Tone is normal and power 5/5 bilaterally in all extremities. Reflexes are +1 and symmetrical. Plantars downgoing bilaterally. LABORATORY DATA: Reviewed. MRI of the brain in no acute findings. EEG normal. IMPRESSION: Status post syncope. RECOMMENDATIONS: 1. The patient had no further episode of passing out. 2. The patient had no cardiac arrhythmia noted. 3. The patient may require ambulatory and electroencephalogram. 4. Please continue supportive care and other treatment. Thank you for the opportunity to participate in the care of this patient. Yvonne Garcia MD
[2017-03-22] MEDS: Oxycodone/Acetaminophen 5/325 mg Tab PO PRN ×3 (03:41→19:36)
[2017-03-22] MEDS: Sodium Chloride 0.9% 1,000 ML IV SCH ×2 (05:36→19:05)
[2017-03-22] MEDS: Pantoprazole 40 mg EC Tab PO SCH ×2 (05:57→18:00)
[2017-03-22] MEDS: oxyCODONE 30 mg Immediate Release Tab PO PRN ×4 (06:00→23:45)
[2017-03-22 07:34] LABS: ALB/GLOB RATIO 1.1 (1.1-1.8); ALKALINE PHOSPHATASE 64 U/L (38-126); ALT/SGPT 41 U/L (7-56); AST/SGOT 23 U/L (14-36); BILIRUBIN,TOTAL 0.5 mg/dL (0.2-1.3); BLOOD UREA NITROGEN 20 mg/dL (7-21); CALCIUM 8.8 mg/dL (8.4-10.5); CARBON DIOXIDE 22 mmol/L (21-33); CHLORIDE 109 mmol/L (95-110); GFR AFRICAN-AMERICAN > 60; GLUCOSE,RANDOM 81 mg/dL (70-110); MAGNESIUM 1.6 mg/dL (1.7-2.2); PHOSPHOROUS 3.1 mg/dL (2.5-4.5); POTASSIUM 3.7 mmol/L (3.6-5.0); SODIUM 140 mmol/L (132-148); TOTAL PROTEIN 6.6 g/dL (5.8-8.3)
[2017-03-22 07:54] LABS: BASO # 0.02 K/mm3 (0.0-2.0); BASO % 0.2 % (0.0-3.0); EOS # 0.1 (0.0-0.7); EOS % 1.5 % (1.5-5.0); GRAN # 5.4 (1.4-6.5); GRAN % 60.6 % (50.0-68.0); HEMATOCRIT 27.9 % (36.0-48.0); LYMPH # 2.8 (1.2-3.4); LYMPH % 31.8 % (22.0-35.0); MEAN CELL VOLUME 94.3 fl (80.0-105.0); MEAN CORPUSCULAR HEMOGLOBIN 30.4 pg (25.0-35.0); MEAN CORPUSCULAR HGB CONC 32.3 g/dl (31.0-37.0); MEAN PLATELET VOLUME 9.6 fl (7.0-11.0); MONO # 0.5 (0.1-0.6); MONO % 5.9 % (1.0-6.0); RED CELL DISTRIBUTION WIDTH 15.8 % (11.5-14.5); WHITE BLOOD COUNT 8.9 10^3/ul (4.5-11.0)
--- NOTE | 2017-03-22 13:14 | CP.PCM.PN ---
<Mariusz Martinez - Last Filed: 03/22/17 13:17> Subjective - Date & Time of Evaluation Date of Evaluation: 03/22/17 Time of Evaluation: 06:00 - Subjective Subjective: Patient was seen and evaluated bedside. Patient stated she had some right knee pain overnight, for which she was given pain medicine for. Currently resolved. Patient denies any CP, SOB, headache, Nausea, vomiting, or any other complaints. Says the case on the ankle is helping and she can walk to the bathroom with a little less pain than yesterday. Objective - Vital Signs/Intake and Output Vital Signs (last 24 hours): Temp Pulse Resp BP Pulse Ox 98.0 F 71 17 147/71 98 03/22/17 12:00 03/22/17 12:00 03/22/17 12:00 03/22/17 12:00 03/22/17 06:00 Intake and Output: 03/22/17 03/22/17 06:59 18:59 Intake Total 2320 Balance 2320 - Medications Medications: Current Medications Aspirin (Ecotrin) 81 mg PO DAILY [facility] Last Admin: 03/22/17 09:55 Dose: 81 mg Docusate Sodium (Colace) 100 mg PO BID [facility] Last Admin: 03/22/17 09:55 Dose: 100 mg Fluticasone Propionate (Flonase) 1 actuation NS DAILY PRN PRN Reason: ALLERGY SYMPTOMS Furosemide (Lasix) 40 mg PO DAILY [facility] Last Admin: 03/22/17 09:59 Dose: 40 mg Gabapentin (Neurontin) 300 mg PO TID [facility] PRN Reason: Protocol Last Admin: 03/22/17 09:55 Dose: 300 mg Sodium Chloride (Sodium Chloride 0.9%) 1,000 mls @ 100 mls/hr IV .Q10H [facility] Last Admin: 03/22/17 05:36 Dose: Not Given Losartan Potassium (Cozaar) 50 mg PO DAILY [facility] Last Admin: 03/22/17 09:55 Dose: 50 mg Ondansetron HCl (Zofran Inj) 4 mg IVP Q4H PRN PRN Reason: Nausea/Vomiting Oxycodone HCl (Oxycodone Immediate Release Tab) 30 mg PO Q6H PRN PRN Reason: Pain, severe (8-10) Last Admin: 03/22/17 11:57 Dose: 30 mg Oxycodone/Acetaminophen (Percocet 5/325 Mg Tab) 1 tab PO Q6H PRN PRN Reason: Pain, moderate (4-7) Stop: 03/24/17 08:48 Last Admin: 03/22/17 10:02 Dose: 1 tab Pantoprazole Sodium (Protonix Ec Tab) 40 mg PO 0600,1600 [facility] Last Admin: 03/22/17 05:57 Dose: 40 mg - Labs Labs: 03/22/17 07:00 03/22/17 07:00 PT 16.5 SECONDS (9.4-12.5) H 03/19/17 20:00 INR 1.50 (0.93-1.08) H 03/19/17 20:00 APTT 33.2 Seconds (25.1-36.5) 03/19/17 20:00 - Constitutional Appears: Non-toxic, No Acute Distress - Head Exam Head Exam: ATRAUMATIC, NORMAL INSPECTION, NORMOCEPHALIC - Eye Exam Eye Exam: EOMI, Normal appearance, PERRL Pupil Exam: NORMAL ACCOMODATION, PERRL - ENT Exam ENT Exam: Mucous Membranes Moist, Normal Exam - Neck Exam Neck Exam: Normal Inspection. absent: Lymphadenopathy - Respiratory Exam Respiratory Exam: Clear to Ausculation Bilateral, NORMAL BREATHING PATTERN - Cardiovascular Exam Cardiovascular Exam: REGULAR RHYTHM, +S1, +S2 - GI/Abdominal Exam GI & Abdominal Exam: Normal Bowel Sounds - Extremities Exam Extremities Exam: Joint Swelling. absent: Pedal Edema Additional comments: right knee slight swilling, right ankle in air cast - Neurological Exam Neurological Exam: Alert, Awake, Oriented x3 Assessment and Plan - Assessment and Plan (Free Text) Assessment: 61 year old AA female with a past medical history significant for protein C deficiency, coumadin induced skin necrosis, CVA, HTN, and DVT, who presented s/ p with brief loc. She is being worked up for syncope and evaluation of possible fracture. Plan: Fall with brief LOC CTH Negative for any intracranial pathology MRI w/o contrast: no hemorrhage no acute findings neurology consulted, Dr. Garcia: EEG ordered: negative Xray ankle: non displaced fracture at the base of the 5th xray knee: tricompartmental osteoarthritis Ortho consulted, Dr. El: patient will need PT and walker before being able to sent home (spoke to Dr. Mastromanaco on the phone) CT Right Knee: non diplaced fracture along edge of patella on the lateral side CT right ankle: negative study Most recent Echo 10/2016: EF: 63% TSH: .25 Low orthostatics obtained normal consider carotid dopplers Protein C deficiency hx of DVT IVC filter placed Elaquis 2.5 mg BID-held HTN continue cozaar 80 mg Continue to monitor CVA hx of TIA asa, FU neuro recs OA analgesics zofran prn Rt knee fracture, Ortho consulted fu reccs Leukocytosis-resolved WBC: 8.9 afebrile, no systemic signs of infx continue to monitor PT eval-follow up GI DVT ppx <Sander Lynn - Last Filed: 03/23/17 07:56> Objective - Vital Signs/Intake and Output Vital Signs (last 24 hours): Temp Pulse Resp BP Pulse Ox 98.6 F 69 20 126/75 100 03/23/17 06:00 03/23/17 06:00 03/23/17 06:00 03/23/17 06:00 03/23/17 06:00 Intake and Output: 03/23/17 03/23/17 06:59 18:59 Intake Total 1680 Balance 1680 - Medications Medications: Current Medications Aspirin (Ecotrin) 81 mg PO DAILY [facility] Last Admin: 03/22/17 09:55 Dose: 81 mg Docusate Sodium (Colace) 100 mg PO BID [facility] Last Admin: 03/22/17 17:59 Dose: 100 mg Fluticasone Propionate (Flonase) 1 actuation NS DAILY PRN PRN Reason: ALLERGY SYMPTOMS Furosemide (Lasix) 40 mg PO DAILY [facility] Last Admin: 03/22/17 09:59 Dose: 40 mg Gabapentin (Neurontin) 300 mg PO TID [facility] PRN Reason: Protocol Last Admin: 03/22/17 17:59 Dose: 300 mg Sodium Chloride (Sodium Chloride 0.9%) 1,000 mls @ 100 mls/hr IV .Q10H [facility] Last Admin: 03/23/17 05:57 Dose: Not Given Losartan Potassium (Cozaar) 50 mg PO DAILY [facility] Last Admin: 03/22/17 09:55 Dose: 50 mg Ondansetron HCl (Zofran Inj) 4 mg IVP Q4H PRN PRN Reason: Nausea/Vomiting Oxycodone HCl (Oxycodone Immediate Release Tab) 30 mg PO Q6H PRN PRN Reason: Pain, severe (8-10) Last Admin: 03/23/17 05:51 Dose: 30 mg Oxycodone/Acetaminophen (Percocet 5/325 Mg Tab) 1 tab PO Q6H PRN PRN Reason: Pain, moderate (4-7) Stop: 03/24/17 08:48 Last Admin: 03/23/17 02:43 Dose: 1 tab Pantoprazole Sodium (Protonix Ec Tab) 40 mg PO 0600,1600 [facility] Last Admin: 03/23/17 05:52 Dose: 40 mg - Labs Labs: 03/23/17 06:20 03/23/17 06:20 PT 16.5 SECONDS (9.4-12.5) H 03/19/17 20:00 INR 1.50 (0.93-1.08) H 03/19/17 20:00 APTT 33.2 Seconds (25.1-36.5) 03/19/17 20:00 Assessment and Plan - Assessment and Plan (Free Text) Assessment: discussed w/ resident at length went over meds labs orders plans
--- NOTE | 2017-03-22 15:16 | EEG ---
ELECTROENCEPHALOGRAM REPORT INTRODUCTION: This is a digitally recorded EEG monitoring using standard EEG montages. BACKGROUND RHYTHM: The EEG shows a background activity of 8 Hz delta activity in parietooccipital region. The EEG activity is bilaterally symmetrical and synchronous. There is attenuation of the background activity on eye opening. ABNORMAL POTENTIALS: No spike, sharp waves or focal slowing was seen. PHOTIC STIMULATION AND HYPERVENTILATION: Photic stimulation did not reveal any abnormality. Hyperventilation was not performed. IMPRESSION: Normal electroencephalogram. No epileptiform activity is seen in this electroencephalogram recording. Yvonne Garcia MD
[2017-03-23] MEDS: Oxycodone/Acetaminophen 5/325 mg Tab PO PRN ×3 (02:43→16:28)
[2017-03-23] MEDS: oxyCODONE 30 mg Immediate Release Tab PO PRN ×2 (05:51→12:08)
[2017-03-23] MEDS: Pantoprazole 40 mg EC Tab PO SCH ×2 (05:52→16:28)
[2017-03-23] MEDS: Sodium Chloride 0.9% 1,000 ML IV SCH ×2 (05:52→05:57)
[2017-03-23 06:32] LABS: BASO # 0.02 K/mm3 (0.0-2.0); BASO % 0.3 % (0.0-3.0); EOS # 0.1 (0.0-0.7); EOS % 2.2 % (1.5-5.0); GRAN # 2.64 (1.4-6.5); GRAN % 45.5 % (50.0-68.0); HEMATOCRIT 31.9 % (36.0-48.0); LYMPH # 2.6 (1.2-3.4); LYMPH % 45.3 % (22.0-35.0); MEAN CELL VOLUME 94.1 fl (80.0-105.0); MEAN CORPUSCULAR HEMOGLOBIN 29.8 pg (25.0-35.0); MEAN CORPUSCULAR HGB CONC 31.7 g/dl (31.0-37.0); MEAN PLATELET VOLUME 9.3 fl (7.0-11.0); MONO # 0.4 (0.1-0.6); MONO % 6.7 % (1.0-6.0); RED CELL DISTRIBUTION WIDTH 15.8 % (11.5-14.5); WHITE BLOOD COUNT 5.8 10^3/ul (4.5-11.0)
[2017-03-23 06:35] VITALS: O2SAT 100
[2017-03-23 06:44] LABS: ALB/GLOB RATIO 1.1 (1.1-1.8); ALKALINE PHOSPHATASE 64 U/L (38-126); ALT/SGPT 34 U/L (7-56); AST/SGOT 23 U/L (14-36); BILIRUBIN,TOTAL 0.5 mg/dL (0.2-1.3); BLOOD UREA NITROGEN 18 mg/dL (7-21); CALCIUM 9.1 mg/dL (8.4-10.5); CARBON DIOXIDE 25 mmol/L (21-33); CHLORIDE 109 mmol/L (95-110); GFR AFRICAN-AMERICAN > 60; GLUCOSE,RANDOM 81 mg/dL (70-110); MAGNESIUM 1.6 mg/dL (1.7-2.2); POTASSIUM 3.9 mmol/L (3.6-5.0); SODIUM 143 mmol/L (132-148); TOTAL PROTEIN 7.1 g/dL (5.8-8.3)
[2017-03-23] MEDS ORDERED: Magnesium Sulfate 2 GM in Sodium Chloride 0.9% 100 ML IV ONE (08:57)
[2017-03-23 09:46] VITALS: PULSE 68
--- NOTE | 2017-03-23 12:43 | CP.PCM.DIS ---
Provider - Provider Date of Admission: 03/22/17 12:52 Attending physician: Orestes Ho MD Primary care physician: John Amezquita MD Time Spent in preparation of Discharge (in minutes): 20 Diagnosis - Discharge Diagnosis (1) Acute renal failure Status: Acute (2) Dehydration Status: Acute (3) Gait instability Status: Acute (4) Ankle sprain Status: Acute (5) Knee fracture, right Status: Acute Hospital Course - Lab Results Lab Results: Most Recent Lab Values WBC 5.8 10^3/ul (4.5-11.0) D 03/23/17 06:20 RBC 3.39 10^6/uL (3.5-6.1) L 03/23/17 06:20 Hgb 10.1 g/dL (12.0-16.0) L 03/23/17 06:20 Hct 31.9 % (36.0-48.0) L 03/23/17 06:20 MCV 94.1 fl (80.0-105.0) 03/23/17 06:20 MCH 29.8 pg (25.0-35.0) 03/23/17 06:20 MCHC 31.7 g/dl (31.0-37.0) 03/23/17 06:20 RDW 15.8 % (11.5-14.5) H 03/23/17 06:20 Plt Count 276 10^3/uL (120.0-450.0) 03/23/17 06:20 MPV 9.3 fl (7.0-11.0) 03/23/17 06:20 Gran % 45.5 % (50.0-68.0) L 03/23/17 06:20 Lymph % (Auto) 45.3 % (22.0-35.0) H 03/23/17 06:20 [place] % (Auto) 6.7 % (1.0-6.0) H 03/23/17 06:20 Eos % (Auto) 2.2 % (1.5-5.0) 03/23/17 06:20 Baso % (Auto) 0.3 % (0.0-3.0) 03/23/17 06:20 Gran # 2.64 (1.4-6.5) 03/23/17 06:20 Lymph # 2.6 (1.2-3.4) 03/23/17 06:20 [place] # 0.4 (0.1-0.6) 03/23/17 06:20 Eos # 0.1 (0.0-0.7) 03/23/17 06:20 Baso # 0.02 K/mm3 (0.0-2.0) 03/23/17 06:20 PT 16.5 SECONDS (9.4-12.5) H 03/19/17 20:00 INR 1.50 (0.93-1.08) H 03/19/17 20:00 APTT 33.2 Seconds (25.1-36.5) 03/19/17 20:00 Sodium 143 mmol/L (132-148) 03/23/17 06:20 Potassium 3.9 mmol/L (3.6-5.0) 03/23/17 06:20 Chloride 109 mmol/L (95-110) 03/23/17 06:20 Carbon Dioxide 25 mmol/L (21-33) 03/23/17 06:20 Anion Gap 13 (10-20) 03/23/17 06:20 BUN 18 mg/dL (7-21) 03/23/17 06:20 Creatinine 0.8 mg/dL (0.7-1.2) 03/23/17 06:20 Est GFR ( Amer) > 60 03/23/17 06:20 Est GFR (Non-Af Amer) > 60 03/23/17 06:20 Random Glucose 81 mg/dL (70-110) 03/23/17 06:20 Calcium 9.1 mg/dL (8.4-10.5) 03/23/17 06:20 Phosphorus 4.0 mg/dL (2.5-4.5) 03/23/17 06:20 Magnesium 1.6 mg/dL (1.7-2.2) L 03/23/17 06:20 Total Bilirubin 0.5 mg/dL (0.2-1.3) 03/23/17 06:20 AST 23 U/L (14-36) 03/23/17 06:20 ALT 34 U/L (7-56) 03/23/17 06:20 Alkaline Phosphatase 64 U/L (38-126) 03/23/17 06:20 Total Creatine Kinase 35 U/L (35-230) 03/19/17 20:00 Troponin I < 0.01 ng/mL 03/19/17 20:00 NT-Pro-B Natriuret Pep 199 pg/mL (0-450) 03/19/17 20:00 Total Protein 7.1 g/dL (5.8-8.3) 03/23/17 06:20 Albumin 3.8 g/dL (3.0-4.8) 03/23/17 06:20 Globulin 3.3 gm/dL 03/23/17 06:20 Albumin/Globulin Ratio 1.1 (1.1-1.8) 03/23/17 06:20 Triglycerides 66 mg/dL (35-160) 03/21/17 07:20 Cholesterol 113 mg/dL (130-200) L 03/21/17 07:20 LDL Cholesterol Direct 46 mg/dL (0-129) 03/21/17 07:20 HDL Cholesterol 43 mg/dL (29-60) 03/21/17 07:20 TSH 3rd Generation 0.25 mIU/mL (0.46-4.68) L 03/21/17 07:00 Urine Color Yellow (YELLOW) 03/20/17 09:47 Urine Appearance Turbid (CLEAR) 03/20/17 09:47 Urine pH 6.0 (4.7-8.0) 03/20/17 09:47 Ur Specific [place] 1.015 (1.005-1.035) 03/20/17 09:47 Urine Protein Trace mg/dL (<30 mg/dL) H 03/20/17 09:47 Urine Glucose (UA) Negative mg/dL (NEGATIVE) 03/20/17 09:47 Urine Ketones Negative mg/dL (NEGATIVE) 03/20/17 09:47 Urine Blood Trace-intact (NEGATIVE) H 03/20/17 09:47 Urine Nitrate Negative (NEGATIVE) 03/20/17 09:47 Urine Bilirubin Negative (NEGATIVE) 03/20/17 09:47 Urine Urobilinogen 1.0 E.U./dL (<1 E.U./dL) H 03/20/17 09:47 Ur Leukocyte Esterase Large Zheng/uL (NEGATIVE) H 03/20/17 09:47 Urine RBC 0 - 2 /hpf (0-2) 03/20/17 09:47 Urine WBC Tntc /hpf (0-6) 03/20/17 09:47 Urine Bacteria Many (NEG) 03/20/17 09:47 - Hospital Course Hospital Course: Patient is a 61 year old female with hx of protein c deficiency, 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 Neurology and Orthopedic surgery were both consulted to rule out syncopal vs mechanical etiology. As per neurology since patient no longer experienced any passing out episodes in conjunction with both the EEG and MRI showed no acute findings, EEG as outpatient was recommended with no further intervention besides continued supportive care. As per Orthopedic surgery, right knee has presence of hemarthrosis, lateral avulsion fracture, osteoarthritis, and valgus deformity which has been improving during course of hospital visit s/p air cast. Ortho states knee brace is not necessary due to stability of fracture; air cast is recommended for right ankle when patient ambulated. Ortho recommends patient to follow up as outpatient so that her progress can be monitored. PT evaluation was necessary for patient to be considered for both SAH and a walker. As per PT patient refused SAH stating she needed to care for her cats. Social work was able to set up visiting nurse service to work with patient at home. Walker will also be provided to patient upon discharge. Importance of following up with Neurology and Orthopedic surgery was discussed with patient. Patient showed complete understanding and is willing to comply. Discharge Exam - Head Exam Head Exam: ATRAUMATIC, NORMAL INSPECTION, NORMOCEPHALIC - Eye Exam Eye Exam: EOMI, Normal appearance - ENT Exam ENT Exam: Mucous Membranes Moist - Respiratory Exam Respiratory Exam: NORMAL BREATHING PATTERN - Cardiovascular Exam Cardiovascular Exam: REGULAR RHYTHM, +S1, +S2 - GI/Abdominal Exam GI & Abdominal Exam: Normal Bowel Sounds, Unremarkable - Neurological Exam Neurological exam: Alert, Oriented x3 - Psychiatric Exam Psychiatric exam: Normal Affect, Normal Mood - Skin Skin Exam: Normal Color, Warm Discharge Plan - Follow Up Plan Condition: FAIR Disposition: HOME/ ROUTINE Patient education suggested?: Yes Instructions: Ankle Sprain (DC), Acute Kidney Injury (DC), Influenza Vaccine ( DC), Fall Prevention (DC) Additional Instructions: - Please follow up with Dr. Amezquita on - Please follow up with Orthopedic as scheduled - Please call Dr. Garcia's office to schedule for outpatient EEG - Continue with current home medications - Please return to Emergency room if symptoms worsen or persist - Script given for walker - Please continue home medications Referrals: John Amezquita MD [Primary Care Provider] - Yvonne Garcia MD [Staff Provider] - Sae Avila DO [Staff Provider] -
[2017-03-23 12:55] VITALS: BP 137/72; RESP 18; TEMP 99.2
[2017-03-23] MEDS ORDERED: Influenza Vaccine 60 mcg/0.5 mL SYR (4YR UP) IM ONE (16:33)
== END 2017-03-23 19:01 | disposition home or self-care (01) | DRG 563 ==
LOC: ED 19:34 → ERH 03-20 01:04 → 2RNO 03-20 02:41 → OBSVTOIN 03-22 12:52
PROVIDERS: ADMIT Internal Medicine; ATTEND Internal Medicine
PROC: 0S9C3ZZ Drainage of Right Knee Joint, Percutaneous Approach (ICD-10-PCS; principal; 2017-03-20)
PROC: 3E0U33Z Introduction of Anti-inflammatory into Joints, Percutaneous Approach (ICD-10-PCS; 2017-03-20)
PROC: 3E0U3BZ Introduction of Anesthetic Agent into Joints, Percutaneous Approach (ICD-10-PCS; 2017-03-20)
DX: S82.001A Unspecified fracture of right patella, initial encounter for closed fracture (principal); N17.9 Acute kidney failure, unspecified; D68.59 Other primary thrombophilia; M62.82 Rhabdomyolysis; M25.00 Hemarthrosis, unspecified joint; E86.0 Dehydration; I48.91 Unspecified atrial fibrillation; I10 Essential (primary) hypertension; W01.0XXA Fall on same level from slipping, tripping and stumbling without subsequent striking against object, initial encounter; E78.5 Hyperlipidemia, unspecified; S93.401A Sprain of unspecified ligament of right ankle, initial encounter; D72.829 Elevated white blood cell count, unspecified; E78.00 Pure hypercholesterolemia, unspecified; Z86.73 Personal history of transient ischemic attack (TIA), and cerebral infarction without residual deficits; Z90.710 Acquired absence of both cervix and uterus; Z98.84 Bariatric surgery status; Z90.13 Acquired absence of bilateral breasts and nipples; Z87.440 Personal history of urinary (tract) infections; Z86.718 Personal history of other venous thrombosis and embolism; Z80.3 Family history of malignant neoplasm of breast; M21.069 Valgus deformity, not elsewhere classified, unspecified knee; M17.11 Unilateral primary osteoarthritis, right knee; J45.909 Unspecified asthma, uncomplicated; Z89.029 Acquired absence of unspecified finger(s)

== ENCOUNTER 2017-03-26 14:20 | Observation (INO) | payer MEDICARE, OTHER ==
[2017-03-26 14:21] VITALS: BMI 28.3
[2017-03-26] MEDS ORDERED: Oxycodone/Acetaminophen 5/325 mg Tab PO STA (15:18)
[2017-03-26] MEDS ORDERED: oxyCODONE 30 mg Immediate Release Tab PO STA (15:30)
--- NOTE | 2017-03-26 15:56 | ED PDOC ---
Arrival/HPI - General Chief Complaint: Lower Extremity Problem/Injury Time Seen by Provider: 03/26/17 14:22 Historian: Patient - History of Present Illness Narrative History of Present Illness (Text): 03/26/17 15:51 61yr old female presents today sent in by dr. garcia for repeat imaging of right foot. pt with recent xray concerning for possible non displaced fracture of right 5th metatarsal. pt states she went to dr. singh office today and was sent in to the hospital. pt is c/o 03/10 with ambulation. pt states she is wearing an air cast to the right ankle and is supposed to f/u with dr. plascencia. pt denies fever/chills. no cp or sob. no vomiting/diarrhea. pt states she is having difficulty with ambulation. pt states she has been taking oxycodone for pain 30mg. Past Medical History - Provider Review Nursing Documentation Reviewed: Yes - Travel History Have you recently traveled outside [place] w/in the past 3 mons?: No - Infectious Disease Hx of Infectious Diseases: None - Tetanus Immunization Tetanus Immunization: Unknown - Cardiac Hx Cardiac Disorders: Yes Hx Hypertension: Yes Other/Comment: A-fib - Pulmonary Hx Respiratory Disorders: Yes Hx Asthma: Yes - Neurological Hx Neurological Disorder: No - HEENT Hx HEENT Disorder: No - Renal Hx Renal Disorder: No - Endocrine/Metabolic Hx Endocrine Disorders: No - Hematological/Oncological Hx Blood Disorders: No - Integumentary Hx Dermatological Disorder: No - Musculoskeletal/Rheumatological Hx Musculoskeletal Disorders: No Hx Falls: Yes - Gastrointestinal Hx Gastrointestinal Disorders: Yes Other/Comment: Gastric Bypass Surgery - Genitourinary/Gynecological Hx Genitourinary Disorders: Yes Hx Urinary Tract Infection: Yes - Psychiatric Hx Psychophysiologic Disorder: No Hx Substance Use: No - Past Surgical History Past Surgical History: Non-Contributing - Surgical History Hx Gastric Bypass Surgery: Yes Hx Hysterectomy: Yes Hx Mastectomy: Yes (B/L Mastectomy) - Anesthesia Hx Anesthesia: Yes Hx Anesthesia Reactions: No Hx Malignant Hyperthermia: No - Suicidal Assessment Feels Threatened In Home Enviroment: No Family/Social History - Physician Review Nursing Documentation Reviewed: Yes Family/Social History: Unknown Family HX Smoking Status: Never Smoked Hx Alcohol Use: No Hx Substance Use: No Hx Substance Use Treatment: No Allergies/Home Meds Allergies/Adverse Reactions: Allergies Penicillins Allergy (Verified 03/26/17 14:45) ANGIOEDEMA/SHORTNESS OF BREATH ANGIOEDEMA SHORTNESS OF BREATH Home Medications: Home Meds Medication Instructions Recorded Confirmed Unobtainable 03/26/17 03/26/17 Review of Systems - Review of Systems Constitutional: absent: Fatigue, Fevers Respiratory: absent: SOB, Cough Cardiovascular: absent: Chest Pain, Palpitations Gastrointestinal: absent: Abdominal Pain, Nausea, Vomiting Musculoskeletal: Arthralgias. absent: Back Pain Neurological: absent: Headache, Dizziness Psychiatric: absent: Anxiety, Depression Physical Exam Vital Signs Reviewed: Yes Vital Signs Temp Pulse Resp BP Pulse Ox 03/26/17 14:42 99.2 F 73 18 135/87 97 Temperature: Afebrile Blood Pressure: Normal Pulse: Regular Respiratory Rate: Normal Appearance: Positive for: Well-Appearing, Non-Toxic, Comfortable Pain Distress: None Mental Status: Positive for: Alert and Oriented X 3 - Systems Exam Head: Present: Atraumatic Mouth: Present: Moist Mucous Membranes Neck: Present: Normal Range of Motion Respiratory/Chest: Present: Clear to Auscultation, Good Air Exchange. No: Respiratory Distress, Accessory Muscle Use Cardiovascular: Present: Regular Rate and Rhythm, Normal S1, S2. No: Murmurs Upper Extremity: Present: Normal Inspection Lower Extremity: Present: NORMAL PULSES, Tenderness, Swelling, Neurovascularly Intact, Capillary Refill < 2 s. No: Normal Inspection, CALF TENDERNESS, Normal ROM, Erythema, Deformity Neurological: Present: GCS=15, Speech Normal Skin: Present: Warm, Dry Psychiatric: Present: Alert, Oriented x 3 Medical Decision Making ED Course and Treatment: 03/26/17 15:56 61yr old female with continued right leg pain. sent in by PMD. pt requesting oxycodone 30mg PO venous duplex right leg; no dvt verbal report from [place] ct right foot;FINDINGS: There is a slightly displaced fracture at the base of the 5th metatarsal bone. No other acute fracture identified. Mild arthritic degenerative changes noted at the right foot. There is mild diffuse soft tissue edema. IMPRESSION: Acute slightly displaced fracture at the base of the 5th metatarsal bone. Diffuse soft tissue edema. 03/26/17 17:51 discussed results with patient in depth; pt feeling better after medications. cbc: hcg; 9.1 cmp: wnl case discussed with dr. Garcia. he would like patient admitted observational status, dr. plascencia on consult. pt placed into short leg posterior splint. case discussed with dr. olivarez medical supervisor impression; foot fracture, difficulty with ambulation observational status to med/surg with ortho consult. - RAD Interpretation Radiology Orders: 03/26/17 14:55 EXT LOWER W/O CONTRAST RIGHT [CT] Stat 03/26/17 15:18 DUPLEX LOWER EXTRM VEIN RIGHT [US] Stat - Medication Orders Current Medication Orders: Heparin Sodium (Porcine) (Heparin) 5,000 units SC Q8 ALEXI PRN Reason: Protocol Sodium Chloride (Sodium Chloride 0.9%) 1,000 mls @ 100 mls/hr IV .Q10H [facility] Ketorolac Tromethamine (Toradol) 30 mg IVP Q4 PRN PRN Reason: Pain, moderate (4-7) Ondansetron HCl (Zofran Inj) 4 mg IVP STAT PRN PRN Reason: Nausea/Vomiting Oxycodone/Acetaminophen (Percocet 5/325 Mg Tab) 1 tab PO Q6H PRN PRN Reason: Pain, severe (8-10) Stop: 03/29/17 19:32 Pantoprazole Sodium (Protonix Ec Tab) 40 mg PO 0600,1600 [facility] Discontinued Medications Oxycodone HCl (Oxycodone Immediate Release Tab) 30 mg PO STAT STA Stop: 03/26/17 15:31 Last Admin: 03/26/17 15:55 Dose: 30 mg [facility] Pain Assessment Document 03/26/17 15:55 EQ (Rec: 03/26/17 15:55 EQ [id number] Pain Reassessment Is this a pain reassessment? No Sleep Is patient sleeping during reassessment? No Presence of Pain Presence of Pain Yes Procedures - Splinting Location: right foot Hand-Made Type: fiberglass Splint: posterior short leg splint Pre-Proc Neuro Vasc Exam: normal Post-Proc Neuro Vasc Exam: normal Disposition/Present on Arrival - Present on Arrival Any Indicators Present on Arrival: Yes History of DVT/PE: Yes History of Uncontrolled Diabetes: No Urinary Catheter: No History of Decub. Ulcer: No History Surgical Site Infection Following: None - Disposition Have Diagnosis and Disposition been Completed?: Yes Diagnosis: Foot fracture, Gait disturbance, Intractable pain Disposition: HOSPITALIZED Disposition Time: 17:56 Patient Plan: Observation Patient Problems: Current Active Problems Problem Status Onset Foot fracture Acute Gait disturbance Acute Intractable pain Acute Condition: FAIR
--- NOTE | 2017-03-26 17:09 | CT ---
PROCEDURE: CT of the right foot without contrast HISTORY: foot pain, ? non displaced fx of 5th metatarsal COMPARISON: No prior similar study available for comparison TECHNIQUE: Axial and reformatted coronal and sagittal CT images of the right foot were obtained without IV contrast administration. FINDINGS: There is a slightly displaced fracture at the base of the 5th metatarsal bone. No other acute fracture identified. Mild arthritic degenerative changes noted at the right foot. There is mild diffuse soft tissue edema. IMPRESSION: Acute slightly displaced fracture at the base of the 5th metatarsal bone. Diffuse soft tissue edema.
[2017-03-26 19:25] LABS: BASO # 0.03 K/mm3 (0.0-2.0); BASO % 0.5 % (0.0-3.0); EOS # 0.1 (0.0-0.7); GRAN # 2.54 (1.4-6.5); HEMATOCRIT 31.1 % (36.0-48.0); MEAN CELL VOLUME 96.6 fl (80.0-105.0); MEAN CORPUSCULAR HEMOGLOBIN 29.8 pg (25.0-35.0); MEAN CORPUSCULAR HGB CONC 30.9 g/dl (31.0-37.0); MEAN PLATELET VOLUME 8.8 fl (7.0-11.0); MONO # 0.8 (0.1-0.6); MONO % 14.5 % (1.0-6.0); RED CELL DISTRIBUTION WIDTH 15.8 % (11.5-14.5); WHITE BLOOD COUNT 5.5 10^3/ul (4.5-11.0)
[2017-03-26] MEDS ORDERED: Oxycodone/Acetaminophen 5/325 mg Tab PO PRN (19:31)
--- NOTE | 2017-03-26 19:31 | US ---
PROCEDURE: Right lower extremity venous US HISTORY: Leg pain and swelling. Evaluate for DVT. PHYSICIAN(S): Stewart Aden M.D. TECHNIQUE: Duplex sonography and color-flow Doppler with graded compression were used to evaluate the deep venous system of the right lower extremity. FINDINGS: The visualized deep venous system of the right lower extremity is sonographically normal and compressible. Normal waveforms and augmentation are seen. There is no sonographic evidence for deep venous thrombosis in the visualized segments of the right lower extremity. IMPRESSION: 1. No sonographic evidence for deep venous thrombosis in the visualized segments of the right lower extremity.
[2017-03-26 19:37] LABS: ALB/GLOB RATIO 1.2 (1.1-1.8); ALKALINE PHOSPHATASE 65 U/L (38-126); ALT/SGPT 34 U/L (7-56); AST/SGOT 23 U/L (14-36); BILIRUBIN,TOTAL 0.6 mg/dL (0.2-1.3); BLOOD UREA NITROGEN 17 mg/dL (7-21); CALCIUM 9.4 mg/dL (8.4-10.5); CARBON DIOXIDE 25 mmol/L (21-33); CHLORIDE 111 mmol/L (98-107); GFR AFRICAN-AMERICAN > 60; GLUCOSE,RANDOM 73 mg/dL (70-110); POTASSIUM 4.5 mmol/L (3.6-5.0); SODIUM 146 mmol/L (132-148)
[2017-03-26] MEDS ORDERED: Sodium Chloride 0.9% 1,000 ML IV SCH (19:45)
--- NOTE | 2017-03-26 20:06 | CP.PCM.HP ---
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 Pt states that she was in her kitchen cooking when all of a sudden, she felt a sharp pain down her right leg and subsequently felt her Rt knee give out. Pt was seen by Ortho and PT last time and was discharged with a walker, but continued to feel pain in her legs, and so she went to Dr. Tafoya office today and he sent her back to the ED for evaluation. Patient states that she has chronic R knee issues but the pain currently is in her R foot ( specifically medial foot), but she denies any numbness/tingling, chest pain, sob , cough, fevers/chills, n/v/d, headaches. 12-point ROS was reviewed and otherwise unremarkable. PMHx: As above PSHx: Tonsillectomy, double mastectomy, b/l ring finger amputation, gastric bypass SHx: Denied tobacco/etoh/illicit abuse, ambulates with assistive device (RW) FamHx: Extensive family history of cancer. Mom: Breast Ca, Dad: metastatic cancer, unknown Meds: protonix, diovan, metoprolol, flonase, lasix, elaquis, gabapentin, oxycodone Allergies: PCN PMD: [facility]: Dr. Zendejas Present on Admission - Present on Admission Any Indicators Present on Admission: No History of DVT/PE: No History of Uncontrolled Diabetes: No Urinary Catheter: No Decubitus Ulcer Present: No History Surgical Site Infection Following: None Review of Systems - Review of Systems All systems: reviewed and no additional remarkable complaints except (as per HPI ) Past Patient History - Infectious Disease Hx of Infectious Diseases: None - Tetanus Immunizations Tetanus Immunization: Unknown - Past Medical History & Family History Past Medical History?: Yes Past Family History: Reviewed and not pertinent - Past Social History Smoking Status: Never Smoked Alcohol: None Drugs: Denies - CARDIAC Hx Cardiac Disorders: Yes Hx Atrial Fibrillation: Yes Hx Hypertension: Yes - PULMONARY Hx Respiratory Disorders: Yes Hx Asthma: Yes - NEUROLOGICAL Hx Neurological Disorder: No - HEENT Hx HEENT Problems: No - RENAL Hx Chronic Kidney Disease: No - ENDOCRINE/METABOLIC Hx Endocrine Disorders: No - HEMATOLOGICAL/ONCOLOGICAL Hx Blood Disorders: No - INTEGUMENTARY Hx Dermatological Problems: No - MUSCULOSKELETAL/RHEUMATOLOGICAL Hx Musculoskeletal Disorders: No Hx Falls: Yes - GASTROINTESTINAL Hx Gastrointestinal Disorders: Yes Other/Comment: Gastric Bypass Surgery - GENITOURINARY/GYNECOLOGICAL Hx Genitourinary Disorders: Yes Hx Urinary Tract Infection: Yes - PSYCHIATRIC Hx Psychophysiologic Disorder: No Hx Substance Use: No - SURGICAL HISTORY Hx Gastric Bypass Surgery: Yes Hx Hysterectomy: Yes Hx Mastectomy: Yes (B/L Mastectomy) - ANESTHESIA Hx Anesthesia: Yes Hx Anesthesia Reactions: No Hx Malignant Hyperthermia: No Meds Allergies/Adverse Reactions: Allergies Allergy/AdvReac Type Severity Reaction Status Date / Time Penicillins Allergy ANGIOEDEMA/SHORTNESS Verified 03/26/17 14:45 OF BREATH Physical Exam - Constitutional Appears: Well, Non-toxic, No Acute Distress - Head Exam Head Exam: ATRAUMATIC, NORMAL INSPECTION, NORMOCEPHALIC - Eye Exam Eye Exam: EOMI, Normal appearance, PERRL Pupil Exam: NORMAL ACCOMODATION - ENT Exam ENT Exam: Mucous Membranes Moist, Normal Exam - Neck Exam Neck exam: Positive for: Normal Inspection - Respiratory Exam Respiratory Exam: Chest Wall Tenderness (R lateral ribcage), Clear to Auscultation Bilateral, NORMAL BREATHING PATTERN. absent: Rales, Rhonchi, Wheezes, Respiratory Distress - Cardiovascular Exam Cardiovascular Exam: RRR, +S1, +S2 - GI/Abdominal Exam GI & Abdominal Exam: Normal Bowel Sounds, Soft. absent: Distended, Tenderness - Extremities Exam Extremities exam: Positive for: joint swelling (R knee), normal inspection, pedal pulses present Additional comments: RLE below knee soft cast - Back Exam Back exam: NORMAL INSPECTION - Neurological Exam Neurological exam: Alert, Oriented x3 Additional comments: motor sensory function intact in all extremities - Psychiatric Exam Psychiatric exam: Normal Affect, Normal Mood - Skin Skin Exam: Normal Color, Warm Results - Vital Signs Recent Vital Signs: Last Vital Signs Temp 99.2 F 03/26/17 14:42 Pulse 73 03/26/17 14:42 Resp 18 03/26/17 14:42 BP 135/87 03/26/17 14:42 Pulse Ox 97 03/26/17 14:42 - Labs Result Diagrams: 03/26/17 19:00 03/26/17 19:00 Labs: Laboratory Results - last 24 hr 03/26/17 03/26/17 19:00 19:00 WBC 5.5 RBC 3.22 L Hgb 9.6 L Hct 31.1 L MCV 96.6 MCH 29.8 MCHC 30.9 L RDW 15.8 H Plt Count 299 MPV 8.8 Gran % 46.0 L Lymph % (Auto) 37.0 H [place] % (Auto) 14.5 H Eos % (Auto) 2.0 Baso % (Auto) 0.5 Gran # 2.54 Lymph # 2.0 [place] # 0.8 H Eos # 0.1 Baso # 0.03 Sodium 146 Potassium 4.5 Chloride 111 H Carbon Dioxide 25 Anion Gap 15 BUN 17 Creatinine 0.8 Est GFR ( Amer) > 60 Est GFR (Non-Af Amer) > 60 Random Glucose 73 Calcium 9.4 Total Bilirubin 0.6 AST 23 ALT 34 Alkaline Phosphatase 65 Total Protein 7.0 Albumin 3.8 Globulin 3.2 Albumin/Globulin Ratio 1.2 Assessment & Plan - Assessment and Plan (Free Text) Assessment: 61yo AAF PMH protein C deficiency, coumadin induced skin necrosis, CVA, HTN, and DVT presenting s/p fall with acute slightly displaced fracture at base of RIGHT 5th metatarsal bone and minimal non-displcaed fracture along edge of RIGHT patella on lateral side Plan: 1. Fall - CT showed acute slightly displaced fracture at base of R 5th metatarsal bone and minimal non-displcaed fracture along edge of R patella on lateral side - Ortho consulted (Dr. Avila), recs appreciated - recent workup showed no neuro/cardiogenic cause of syncope - NPO in case of OR tomorrow - Zofran PRN n/v - Pain mgmt: Oxycodone Q6 (which patient states she takes at home) PRN and Percocet PRN - PT/OT eval 2. Protein C deficiency - IVC filter in place - Eliquis 5 mg BID - venous duplex right leg; no dvt per PA report 3. HTN - started home meds - Continue to monitor 4. Afib - cont Eliquis 5. CVA - hx of TIA - ASA 6. OA - analgesics - zofran prn PTX/ Eliquis NPO NS @ 100 Patient was evaluated and discussed with attending, Dr. Bia Sprague PGY1 - Date & Time Date: 03/26/17 Time: 20:22
[2017-03-26] MEDS: oxyCODONE 30 mg Immediate Release Tab PO PRN (22:01)
--- NOTE | 2017-03-27 02:16 | CP.PCM.PN ---
Subjective - Date & Time of Evaluation Date of Evaluation: 03/27/17 Time of Evaluation: 02:14 - Subjective Subjective: S: It was requested to insert a heparin lock. Patient has no complaints now. Pertinent medical record reviewed. Last Vital Signs 3 Temp 98.2 F 03/26/17 22:43 Pulse 66 03/26/17 22:43 Resp 20 03/26/17 22:43 BP 136/90 03/26/17 22:43 Pulse Ox 98 03/26/17 20:36 O: Awake alert , not in distress. LUNGS: Normal breathing pattern. A: Poor venous access. Encounter for intravenous line placement. Objective - Vital Signs/Intake and Output Vital Signs (last 24 hours): Temp Pulse Resp BP Pulse Ox 98.2 F 66 20 136/90 98 03/26/17 22:43 03/26/17 22:43 03/26/17 22:43 03/26/17 22:43 03/26/17 20:36 - Medications Medications: Current Medications Apixaban (Eliquis) 5 mg PO BID ALEXI PRN Reason: Protocol Last Admin: 03/26/17 22:01 Dose: 5 mg Aspirin (Ecotrin) 81 mg PO DAILY ALEXI Gabapentin (Neurontin) 300 mg PO TID ALEXI PRN Reason: Protocol Sodium Chloride (Sodium Chloride 0.9%) 1,000 mls @ 100 mls/hr IV .Q10H [facility] Last Admin: 03/26/17 19:59 Dose: 100 mls/hr Losartan Potassium (Cozaar) 50 mg PO DAILY [facility] Metoprolol Tartrate (Lopressor) 25 mg PO BID [facility] Ondansetron HCl (Zofran Inj) 4 mg IVP STAT PRN PRN Reason: Nausea/Vomiting Oxycodone HCl (Oxycodone Immediate Release Tab) 30 mg PO Q6H PRN PRN Reason: Pain, moderate (4-7) Last Admin: 03/26/17 22:01 Dose: 30 mg Pantoprazole Sodium (Protonix Ec Tab) 40 mg PO 0600,1600 [facility] Sennosides (Senokot Tab) 17.2 mg PO HS [facility] Last Admin: 03/27/17 00:17 Dose: Not Given Zolpidem Tartrate (Ambien) 10 mg PO HS [facility] PRN Reason: Protocol Last Admin: 03/27/17 00:02 Dose: 10 mg - Labs Labs: 10/26/17 19:00 03/26/17 19:00
[2017-03-27] MEDS: oxyCODONE 30 mg Immediate Release Tab PO PRN ×4 (03:44→20:23)
[2017-03-27] MEDS: Pantoprazole 40 mg EC Tab PO SCH ×2 (06:14→16:46)
[2017-03-27 07:13] LABS: HEMATOCRIT 28.1 % (36.0-48.0); INR 1.21 (0.93-1.08); MEAN CELL VOLUME 94.6 fl (80.0-105.0); MEAN CORPUSCULAR HEMOGLOBIN 29.6 pg (25.0-35.0); MEAN CORPUSCULAR HGB CONC 31.3 g/dl (31.0-37.0); MEAN PLATELET VOLUME 8.7 fl (7.0-11.0); PARTIAL THROMBOPLASTIN TIME 32.1 Seconds (25.1-36.5); RED CELL DISTRIBUTION WIDTH 15.6 % (11.5-14.5)
[2017-03-27] MEDS ORDERED: Non Formulary Medication (Valsartan [Diovan] 80 MG) PO SCH (10:00)
--- NOTE | 2017-03-27 16:26 | CP.PCM.DIS ---
Provider - Provider Date of Admission: 03/26/17 17:51 Attending physician: Orestes Ho MD Primary care physician: John Amezquita MD Hospital Course - Lab Results Lab Results: Most Recent Lab Values WBC 4.0 10^3/ul (4.5-11.0) L D 03/27/17 06:52 RBC 2.97 10^6/uL (3.5-6.1) L 03/27/17 06:52 Hgb 8.8 g/dL (12.0-16.0) L 03/27/17 06:52 Hct 28.1 % (36.0-48.0) L 03/27/17 06:52 MCV 94.6 fl (80.0-105.0) 03/27/17 06:52 MCH 29.6 pg (25.0-35.0) 03/27/17 06:52 MCHC 31.3 g/dl (31.0-37.0) 03/27/17 06:52 RDW 15.6 % (11.5-14.5) H 03/27/17 06:52 Plt Count 297 10^3/uL (120.0-450.0) 03/27/17 06:52 MPV 8.7 fl (7.0-11.0) 03/27/17 06:52 Gran % 46.0 % (50.0-68.0) L 03/26/17 19:00 Lymph % (Auto) 37.0 % (22.0-35.0) H 03/26/17 19:00 [place] % (Auto) 14.5 % (1.0-6.0) H 03/26/17 19:00 Eos % (Auto) 2.0 % (1.5-5.0) 03/26/17 19:00 Baso % (Auto) 0.5 % (0.0-3.0) 03/26/17 19:00 Gran # 2.54 (1.4-6.5) 03/26/17 19:00 Lymph # 2.0 (1.2-3.4) 03/26/17 19:00 [place] # 0.8 (0.1-0.6) H 03/26/17 19:00 Eos # 0.1 (0.0-0.7) 03/26/17 19:00 Baso # 0.03 K/mm3 (0.0-2.0) 03/26/17 19:00 PT 13.4 SECONDS (9.4-12.5) H 03/27/17 06:52 INR 1.21 (0.93-1.08) H 03/27/17 06:52 APTT 32.1 Seconds (25.1-36.5) 03/27/17 06:52 Sodium 146 mmol/L (132-148) 03/26/17 19:00 Potassium 4.5 mmol/L (3.6-5.0) 03/26/17 19:00 Chloride 111 mmol/L (98-107) H 03/26/17 19:00 Carbon Dioxide 25 mmol/L (21-33) 03/26/17 19:00 Anion Gap 15 (10-20) 03/26/17 19:00 BUN 17 mg/dL (7-21) 03/26/17 19:00 Creatinine 0.8 mg/dL (0.7-1.2) 03/26/17 19:00 Est GFR ( Amer) > 60 03/26/17 19:00 Est GFR (Non-Af Amer) > 60 03/26/17 19:00 Random Glucose 73 mg/dL (70-110) 03/26/17 19:00 Calcium 9.4 mg/dL (8.4-10.5) 03/26/17 19:00 Total Bilirubin 0.6 mg/dL (0.2-1.3) 03/26/17 19:00 AST 23 U/L (14-36) 03/26/17 19:00 ALT 34 U/L (7-56) 03/26/17 19:00 Alkaline Phosphatase 65 U/L (38-126) 03/26/17 19:00 Total Protein 7.0 g/dL (5.8-8.3) 03/26/17 19:00 Albumin 3.8 g/dL (3.0-4.8) 03/26/17 19:00 Globulin 3.2 gm/dL 03/26/17 19:00 Albumin/Globulin Ratio 1.2 (1.1-1.8) 03/26/17 19:00 Discharge Exam - Head Exam Head Exam: ATRAUMATIC, NORMAL INSPECTION, NORMOCEPHALIC Discharge Plan - Follow Up Plan Condition: FAIR Disposition: HOME/ ROUTINE Instructions: Atrial Fibrillation (DC), Heart Healthy Diet (DC), Foot Fracture in Adults (DC) Referrals: John Amezquita MD [Primary Care Provider] - Sae Avila DO [Staff Provider] -
[2017-03-27] MEDS: Oxycodone/Acetaminophen 5/325 mg Tab PO PRN ×2 (16:49→23:21)
--- NOTE | 2017-03-27 23:04 | CON ---
ORTHOPEDIC CONSULT DATE: 03/27/2017 HISTORY OF PRESENT ILLNESS: The patient is a 61-year-old female. The patient was admitted to the hospital on 03/26/2017 for injury sustained to the right ankle when she slipped and twisted the ankle and was seen in the emergency room. I had seen her this last week and saw that she had a bad ankle sprain with tenderness to the medial malleolar region deltoid ligament, but when she fell again, in the ER, the CAT was done and picked up that she had a fifth metatarsal fracture, but she has no tenderness to that region of her foot and it does appear to have some callus. I took the cast off that they applied in the ER and I put the air cast on that she had before. It was more comfortable because it is padded and it is controlling the ankle fracture. She has no pain on the fifth metatarsal region at the base, so I am confident that the air case would be better than the cast, so I thought she can go home tomorrow which is 03/28/2017, to wear the air cast and the importance to get a good shoe. She has not got a good shoe yet. She needs a shoe that is going to hold the air cast onto her ankle. There is no tenderness to the fifth metatarsal and the x-ray shows that it is a healing fracture, probably happened a while ago. FINAL DIAGNOSIS: Right ankle sprain with chronic occult fracture of the fifth metatarsal base of right foot. Sae Avila DO
--- NOTE | 2017-03-27 23:07 | CP.PCM.PN ---
Subjective - Date & Time of Evaluation Date of Evaluation: 03/27/17 Time of Evaluation: 07:30 - Subjective Subjective: Patient was seen and examined in bed side at no acute distress. Patient states she has pain in the medial aspect of right foot which radiates upwards slightly up right knee. Patient is able to ambulate with air cast. Patient was in slight pain of the 5th metatarsal due to the fact that she hit it against the edge of the hospital bed. Patient denies chest pain, shortness of breath, dizziness, n// v/d, abdominal pain. Objective - Vital Signs/Intake and Output Vital Signs (last 24 hours): Temp Pulse Resp BP Pulse Ox 98.4 F 61 20 110/60 100 03/27/17 16:00 03/27/17 17:54 03/27/17 16:00 03/27/17 17:54 03/27/17 16:00 Intake and Output: 03/27/17 03/28/17 18:59 06:59 Intake Total 833 600 Balance 833 600 - Medications Medications: Current Medications Apixaban (Eliquis) 5 mg PO BID [facility] PRN Reason: Protocol Last Admin: 03/27/17 17:54 Dose: 5 mg Aspirin (Ecotrin) 81 mg PO DAILY [facility] Last Admin: 03/27/17 11:00 Dose: 81 mg Gabapentin (Neurontin) 300 mg PO TID [facility] PRN Reason: Protocol Last Admin: 03/27/17 17:54 Dose: 300 mg Losartan Potassium (Cozaar) 50 mg PO DAILY [facility] Last Admin: 03/27/17 11:00 Dose: 50 mg Metoprolol Tartrate (Lopressor) 25 mg PO BID [facility] Last Admin: 03/27/17 17:54 Dose: 25 mg Ondansetron HCl (Zofran Inj) 4 mg IVP STAT PRN PRN Reason: Nausea/Vomiting Last Admin: 03/27/17 08:47 Dose: 4 mg Oxycodone HCl (Oxycodone Immediate Release Tab) 30 mg PO Q6H PRN PRN Reason: Pain, moderate (4-7) Last Admin: 03/27/17 20:23 Dose: 30 mg Oxycodone/Acetaminophen (Percocet 5/325 Mg Tab) 1 tab PO Q4H PRN PRN Reason: Pain, severe (8-10) Stop: 03/30/17 07:37 Last Admin: 03/27/17 16:49 Dose: 1 tab Pantoprazole Sodium (Protonix Ec Tab) 40 mg PO 0600,1600 [facility] Last Admin: 03/27/17 16:46 Dose: 40 mg Sennosides (Senokot Tab) 17.2 mg PO HS [facility] Last Admin: 03/27/17 00:17 Dose: Not Given Zolpidem Tartrate (Ambien) 10 mg PO HS [facility] PRN Reason: Protocol Last Admin: 03/27/17 00:02 Dose: 10 mg - Labs Labs: 03/27/17 06:52 03/26/17 19:00 PT 13.4 SECONDS (9.4-12.5) H 03/27/17 06:52 INR 1.21 (0.93-1.08) H 03/27/17 06:52 APTT 32.1 Seconds (25.1-36.5) 03/27/17 06:52 - Constitutional Appears: No Acute Distress - Head Exam Head Exam: ATRAUMATIC, NORMAL INSPECTION, NORMOCEPHALIC - Eye Exam Eye Exam: EOMI, Normal appearance. absent: Nystagmus, Periorbital tenderness Pupil Exam: NORMAL ACCOMODATION - ENT Exam ENT Exam: Mucous Membranes Moist, Normal Exam - Neck Exam Neck Exam: Full ROM, Normal Inspection - Respiratory Exam Respiratory Exam: Clear to Ausculation Bilateral, NORMAL BREATHING PATTERN. absent: Accessory Muscle Use, Decreased Breath Sounds - Cardiovascular Exam Cardiovascular Exam: REGULAR RHYTHM, +S1, +S2. absent: Clicks, Gallop, Murmur - GI/Abdominal Exam GI & Abdominal Exam: Soft, Normal Bowel Sounds. absent: Firm, Rigid, Tenderness , Hyperactive Bowel Sounds - Extremities Exam Extremities Exam: Tenderness (medial aspect of right foot to right knee). absent: Normal Inspection - Back Exam Back Exam: NORMAL INSPECTION, tenderness - Neurological Exam Neurological Exam: Abnormal Gait, Alert, Awake, CN II-XII Intact, Oriented x3. absent: Normal Gait - Psychiatric Exam Psychiatric exam: Normal Affect, Normal Mood. absent: Depressed, Flat Affect - Skin Skin Exam: Normal Color, Warm. 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 Right 5th metatarsal fracture - Orthopedic surgery consulted recs appreciated - Patient instructed to not bear weight on right foot - Pain control - NPO discontinued, diet ordered as per surgery 2. Protein C deficiency - IVC filter in place - Continue Eliquis 3. HTN - Continue with home meds - Monitor BP 4. Afib - continue Eliquis 5. CVA - Continue Aspirin GI/DVT prophylaxis Protonix/Eliquis
[2017-03-28] MEDS: oxyCODONE 30 mg Immediate Release Tab PO PRN ×4 (03:20→21:59)
[2017-03-28] MEDS: Pantoprazole 40 mg EC Tab PO SCH ×2 (06:01→18:31)
[2017-03-28 07:44] LABS: HEMATOCRIT 29.4 % (36.0-48.0); MEAN CELL VOLUME 94.8 fl (80.0-105.0); MEAN CORPUSCULAR HEMOGLOBIN 29.7 pg (25.0-35.0); MEAN CORPUSCULAR HGB CONC 31.3 g/dl (31.0-37.0); RED CELL DISTRIBUTION WIDTH 15.7 % (11.5-14.5)
[2017-03-28 07:52] LABS: BLOOD UREA NITROGEN 13 mg/dL (7-21); CALCIUM 9.2 mg/dL (8.4-10.5); CARBON DIOXIDE 25 mmol/L (21-33); CHLORIDE 108 mmol/L (98-107); GFR AFRICAN-AMERICAN > 60; GLUCOSE,RANDOM 75 mg/dL (70-110); POTASSIUM 3.8 mmol/L (3.6-5.0); SODIUM 141 mmol/L (132-148)
--- NOTE | 2017-03-28 08:33 | CP.PCM.PN ---
Subjective - Date & Time of Evaluation Date of Evaluation: 03/28/17 Time of Evaluation: 08:32 - Subjective Subjective: PGY-2 Progress note Patient seen and examined at bedside. No acute distress. Patient states that the pain in her right foot is continues to be about 7-8/10 but is helped by with the pain medication. She states that the pain is worse when standing. She has no other complaints. Objective - Vital Signs/Intake and Output Vital Signs (last 24 hours): Temp Pulse Resp BP Pulse Ox 98.2 F 57 L 20 122/73 99 03/28/17 07:30 03/28/17 07:30 03/28/17 07:30 03/28/17 07:30 03/28/17 07:30 Intake and Output: 03/28/17 03/28/17 06:59 18:59 Intake Total 600 Balance 600 - Medications Medications: Current Medications Apixaban (Eliquis) 5 mg PO BID [facility] PRN Reason: Protocol Last Admin: 03/27/17 17:54 Dose: 5 mg Aspirin (Ecotrin) 81 mg PO DAILY [facility] Last Admin: 03/27/17 11:00 Dose: 81 mg Gabapentin (Neurontin) 300 mg PO TID [facility] PRN Reason: Protocol Last Admin: 03/27/17 17:54 Dose: 300 mg Losartan Potassium (Cozaar) 50 mg PO DAILY [facility] Last Admin: 03/27/17 11:00 Dose: 50 mg Metoprolol Tartrate (Lopressor) 25 mg PO BID [facility] Last Admin: 03/27/17 17:54 Dose: 25 mg Ondansetron HCl (Zofran Inj) 4 mg IVP STAT PRN PRN Reason: Nausea/Vomiting Last Admin: 03/27/17 08:47 Dose: 4 mg Oxycodone HCl (Oxycodone Immediate Release Tab) 30 mg PO Q6H PRN PRN Reason: Pain, moderate (4-7) Last Admin: 03/28/17 03:20 Dose: 30 mg Oxycodone/Acetaminophen (Percocet 5/325 Mg Tab) 1 tab PO Q4H PRN PRN Reason: Pain, severe (8-10) Stop: 03/30/17 07:37 Last Admin: 03/27/17 23:21 Dose: 1 tab Pantoprazole Sodium (Protonix Ec Tab) 40 mg PO 0600,1600 [facility] Last Admin: 03/28/17 06:01 Dose: 40 mg Sennosides (Senokot Tab) 17.2 mg PO HS [facility] Last Admin: 03/27/17 21:59 Dose: Not Given Zolpidem Tartrate (Ambien) 10 mg PO HS [facility] PRN Reason: Protocol Last Admin: 03/27/17 23:00 Dose: Not Given - Labs Labs: 03/28/17 06:30 03/28/17 06:30 PT 13.4 SECONDS (9.4-12.5) H 03/27/17 06:52 INR 1.21 (0.93-1.08) H 03/27/17 06:52 APTT 32.1 Seconds (25.1-36.5) 03/27/17 06:52 - Constitutional Appears: Well, No Acute Distress - Head Exam Head Exam: ATRAUMATIC, NORMAL INSPECTION, NORMOCEPHALIC - Eye Exam Eye Exam: EOMI, Normal appearance - ENT Exam ENT Exam: Mucous Membranes Moist - Respiratory Exam Respiratory Exam: Clear to Ausculation Bilateral, NORMAL BREATHING PATTERN. absent: Decreased Breath Sounds, Rales, Rhonchi, Wheezes, Respiratory Distress - Cardiovascular Exam Cardiovascular Exam: REGULAR RHYTHM, +S1, +S2. absent: Tachycardia, Murmur - GI/Abdominal Exam GI & Abdominal Exam: Soft, Normal Bowel Sounds. absent: Distended, Firm, Guarding, Tenderness - Extremities Exam Extremities Exam: Tenderness Additional comments: right foot in air cast - Neurological Exam Neurological Exam: Alert, Awake, Oriented x3 - Skin Skin Exam: Dry, Intact, Normal Color, Warm Assessment and Plan - Assessment and Plan (Free Text) Assessment: 61 yo Past Medical History of protein C deficiency, coumadin induced skin necrosis, CVA, HTN, and DVT presenting s/p fall with acute slightly displaced fracture at base of RIGHT 5th metatarsal bone and minimal non-displaced fracture along edge of RIGHT patella on lateral side Plan: 1. Fall with fracture of right 5th metatarsal - CT showed acute slightly displaced fracture at base of R 5th metatarsal bone and minimal non-displaced fracture along edge of R patella on lateral side - Ortho consulted (Dr. Avila), no surgical intervention - recent workup showed no neuro/cardiogenic cause of syncope - Zofran PRN n&v - Pain management: Oxycodone Q6 (which patient states she takes at home) PRN and Percocet PRN - PT recommends home with services 2. Protein C deficiency - IVC filter in place - Eliquis 5 mg BID - venous duplex right leg; no dvt per PA report 3. HTN - controlled - started home meds - Continue to monitor 4. Afib - heart rate controlled - continue Eliquis 5. CVA - hx of TIA - continue ASA 6. Osteoarthritis - analgesics - zofran prn Prophylaxis - DVT- Eliquis
--- NOTE | 2017-03-28 10:33 | PN ---
DATE: 03/28/2017 The patient was admitted for painful right ankle, with most of her pain on the medial ligaments of the right ankle and she feels better today with the air cast. There is no pain over the fifth metatarsal base where she was reported to have a fracture, but appears to be healing, indicating it is old, so she can go home today. Close followup with me and I will see her in a week in the office and to wear the air cast along with a good walking sneaker or shoe that goes around the heel to capture the air cast to contain the ankle on the right side. So she can go home today, which is 03/28/2017. Follow up in the office for the right ankle sprain and old fifth metatarsal fracture at the base. Sae Avila DO
--- NOTE | 2017-03-28 11:43 | CP.PCM.DIS ---
Provider - Provider Date of Admission: 03/26/17 17:51 Attending physician: Orestes Ho MD Primary care physician: John Amezquita MD Time Spent in preparation of Discharge (in minutes): 40 Hospital Course - Lab Results Lab Results: Most Recent Lab Values WBC 4.0 10^3/ul (4.5-11.0) L 03/28/17 06:30 RBC 3.10 10^6/uL (3.5-6.1) L 03/28/17 06:30 Hgb 9.2 g/dL (12.0-16.0) L 03/28/17 06:30 Hct 29.4 % (36.0-48.0) L 03/28/17 06:30 MCV 94.8 fl (80.0-105.0) 03/28/17 06:30 MCH 29.7 pg (25.0-35.0) 03/28/17 06:30 MCHC 31.3 g/dl (31.0-37.0) 03/28/17 06:30 RDW 15.7 % (11.5-14.5) H 03/28/17 06:30 Plt Count 302 10^3/uL (120.0-450.0) 03/28/17 06:30 MPV 9.0 fl (7.0-11.0) 03/28/17 06:30 Gran % 46.0 % (50.0-68.0) L 03/26/17 19:00 Lymph % (Auto) 37.0 % (22.0-35.0) H 03/26/17 19:00 [place] % (Auto) 14.5 % (1.0-6.0) H 03/26/17 19:00 Eos % (Auto) 2.0 % (1.5-5.0) 03/26/17 19:00 Baso % (Auto) 0.5 % (0.0-3.0) 03/26/17 19:00 Gran # 2.54 (1.4-6.5) 03/26/17 19:00 Lymph # 2.0 (1.2-3.4) 03/26/17 19:00 Free[place] # 0.8 (0.1-0.6) H 03/26/17 19:00 Eos # 0.1 (0.0-0.7) 03/26/17 19:00 Baso # 0.03 K/mm3 (0.0-2.0) 03/26/17 19:00 PT 13.4 SECONDS (9.4-12.5) H 03/27/17 06:52 INR 1.21 (0.93-1.08) H 03/27/17 06:52 APTT 32.1 Seconds (25.1-36.5) 03/27/17 06:52 Sodium 141 mmol/L (132-148) 03/28/17 06:30 Potassium 3.8 mmol/L (3.6-5.0) 03/28/17 06:30 Chloride 108 mmol/L (98-107) H 03/28/17 06:30 Carbon Dioxide 25 mmol/L (21-33) 03/28/17 06:30 Anion Gap 12 (10-20) 03/28/17 06:30 BUN 13 mg/dL (7-21) 03/28/17 06:30 Creatinine 0.8 mg/dL (0.7-1.2) 03/28/17 06:30 Est GFR ( Amer) > 60 03/28/17 06:30 Est GFR (Non-Af Amer) > 60 03/28/17 06:30 Random Glucose 75 mg/dL (70-110) 03/28/17 06:30 Calcium 9.2 mg/dL (8.4-10.5) 03/28/17 06:30 Total Bilirubin 0.6 mg/dL (0.2-1.3) 03/26/17 19:00 AST 23 U/L (14-36) 03/26/17 19:00 ALT 34 U/L (7-56) 03/26/17 19:00 Alkaline Phosphatase 65 U/L (38-126) 03/26/17 19:00 Total Protein 7.0 g/dL (5.8-8.3) 03/26/17 19:00 Albumin 3.8 g/dL (3.0-4.8) 03/26/17 19:00 Globulin 3.2 gm/dL 03/26/17 19:00 Albumin/Globulin Ratio 1.2 (1.1-1.8) 03/26/17 19:00 - Hospital Course Hospital Course: 61 yo Past Medical History of protein C deficiency, Coumadin induced skin necrosis, CVA, HTN, and DVT presenting s/p fall with acute slightly displaced fracture at base of RIGHT 5th metatarsal bone and minimal non-displaced fracture along edge of RIGHT patella on lateral side, confirmed with CT. Ortho was consulted, they did not recommend surgical intervention. Her right foot was placed in air cast. She is advised to wear air cast, and avoid placing weight on her foot. She is to follow up within 1 week. Patient had recent workup for syncope, it showed no neurological or cardiogenic cause of syncope. While in the hospital patients other medical conditions were monitored. Ultrasound of the lower extremities showed no dvt. Patient states the pain has improved and is doing better overall. Discharge Exam - Head Exam Head Exam: ATRAUMATIC, NORMAL INSPECTION, NORMOCEPHALIC - Eye Exam Eye Exam: EOMI, Normal appearance - Respiratory Exam Respiratory Exam: Clear to PA & Lateral, NORMAL BREATHING PATTERN, UNREMARKABLE. absent: Decreased Breath Sounds, Rales, Rhonchi, Wheezes, Respiratory Distress - Cardiovascular Exam Cardiovascular Exam: REGULAR RHYTHM, +S1, +S2. absent: Tachycardia, Systolic Murmur - GI/Abdominal Exam GI & Abdominal Exam: Normal Bowel Sounds, Unremarkable. absent: Distended, Firm , Guarding, Soft, Tenderness - Extremities Exam Additional comments: right foot in cast, tender - Neurological Exam Neurological exam: Alert, Oriented x3 - Skin Skin Exam: Dry, Intact, Normal Color, Warm Discharge Plan - Follow Up Plan Condition: FAIR Disposition: HOME/ ROUTINE Instructions: Atrial Fibrillation (DC), Heart Healthy Diet (DC), Foot Fracture in Adults (DC) Additional Instructions: Patient is to follow up next week with Dr. Avila. Referrals: John Amezquita MD [Primary Care Provider] - Sae Avila DO [Staff Provider] -
[2017-03-28] MEDS ORDERED: Oxycodone/Acetaminophen 5/325 mg Tab PO PRN (16:25)
--- NOTE | 2017-03-28 16:43 | CP.PCM.PN ---
<Tabitha Gibson - Last Filed: 03/28/17 20:17> Subjective - Date & Time of Evaluation Date of Evaluation: 03/28/17 Time of Evaluation: 16:41 - Subjective Subjective: PGY-2 Progress note Patient seen and examined at bedside. Patient states that she slipped and reinjuryed her ankle while waking back form the rest room. She states that she is having difficulty placing weight back on her foot. Objective - Vital Signs/Intake and Output Vital Signs (last 24 hours): Temp Pulse Resp BP Pulse Ox 98.2 F 62 20 123/70 99 03/28/17 07:30 03/28/17 09:31 03/28/17 07:30 03/28/17 09:31 03/28/17 07:30 Intake and Output: 03/28/17 03/28/17 06:59 18:59 Intake Total 600 720 Balance 600 720 - Medications Medications: Current Medications Apixaban (Eliquis) 5 mg PO BID [facility] PRN Reason: Protocol Last Admin: 03/28/17 09:12 Dose: 5 mg Aspirin (Ecotrin) 81 mg PO DAILY [facility] Last Admin: 03/28/17 09:12 Dose: 81 mg Gabapentin (Neurontin) 300 mg PO TID [facility] PRN Reason: Protocol Last Admin: 03/28/17 15:00 Dose: 300 mg Losartan Potassium (Cozaar) 50 mg PO DAILY [facility] Last Admin: 03/28/17 09:31 Dose: 50 mg Metoprolol Tartrate (Lopressor) 25 mg PO BID [facility] Last Admin: 03/28/17 09:30 Dose: 25 mg Ondansetron HCl (Zofran Inj) 4 mg IVP STAT PRN PRN Reason: Nausea/Vomiting Stop: 03/28/17 19:36 Last Admin: 03/27/17 08:47 Dose: 4 mg Ondansetron HCl (Zofran Inj) 4 mg IVP Q6H PRN PRN Reason: Nausea/Vomiting Last Admin: 03/28/17 09:12 Dose: 4 mg Oxycodone HCl (Oxycodone Immediate Release Tab) 30 mg PO Q6H PRN PRN Reason: Pain, severe (8-10) Last Admin: 03/28/17 16:38 Dose: 30 mg Oxycodone/Acetaminophen (Percocet 5/325 Mg Tab) 1 tab PO Q4H PRN PRN Reason: Pain, moderate (4-7) Stop: 03/30/17 07:37 Pantoprazole Sodium (Protonix Ec Tab) 40 mg PO 0600,1600 [facility] Last Admin: 03/28/17 06:01 Dose: 40 mg Sennosides (Senokot Tab) 17.2 mg PO HS [facility] Last Admin: 03/27/17 21:59 Dose: Not Given Zolpidem Tartrate (Ambien) 10 mg PO HS [facility] PRN Reason: Protocol Last Admin: 03/27/17 23:00 Dose: Not Given - Labs Labs: 03/28/17 06:30 03/28/17 06:30 PT 13.4 SECONDS (9.4-12.5) H 03/27/17 06:52 INR 1.21 (0.93-1.08) H 03/27/17 06:52 APTT 32.1 Seconds (25.1-36.5) 03/27/17 06:52 - Constitutional Appears: No Acute Distress - Head Exam Head Exam: ATRAUMATIC, NORMAL INSPECTION, NORMOCEPHALIC - Eye Exam Eye Exam: EOMI, Normal appearance - ENT Exam ENT Exam: Mucous Membranes Moist - Respiratory Exam Respiratory Exam: Clear to Ausculation Bilateral, NORMAL BREATHING PATTERN. absent: Decreased Breath Sounds, Rales, Rhonchi, Wheezes, Respiratory Distress, Stridor - Cardiovascular Exam Cardiovascular Exam: REGULAR RHYTHM, +S1, +S2. absent: Tachycardia, Murmur - GI/Abdominal Exam GI & Abdominal Exam: Soft, Normal Bowel Sounds. absent: Distended, Firm, Guarding, Tenderness - Extremities Exam Additional comments: right foot in air cast, tender to palpitation, pain continues to be in medial aspect of foot. 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 Plan: 1. Right 5th metatarsal fracture with sprain - On examination, no new injury, pain continues to be in medial aspect of right ankle. 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 Protein C deficiency - IVC filter in place - Continue Eliquis 3. HTN - controlled - Continue with home meds - Monitor BP 4. Afib - heart rate controlled - continue Eliquis 5. CVA - Continue Aspirin GI/DVT prophylaxis Protonix/Eliquis <Sander Lynn - Last Filed: 03/28/17 20:41> Objective - Vital Signs/Intake and Output Vital Signs (last 24 hours): Temp Pulse Resp BP Pulse Ox 98.7 F 50 L 20 114/76 99 03/28/17 16:00 03/28/17 18:17 03/28/17 16:00 03/28/17 16:00 03/28/17 16:00 Intake and Output: 03/28/17 03/29/17 18:59 06:59 Intake Total 720 320 Balance 720 320 - Medications Medications: Current Medications Apixaban (Eliquis) 5 mg PO BID [facility] PRN Reason: Protocol Last Admin: 03/28/17 18:16 Dose: 5 mg Aspirin (Ecotrin) 81 mg PO DAILY [facility] Last Admin: 03/28/17 09:12 Dose: 81 mg Gabapentin (Neurontin) 300 mg PO TID [facility] PRN Reason: Protocol Last Admin: 03/28/17 18:16 Dose: 300 mg Losartan Potassium (Cozaar) 50 mg PO DAILY [facility] Last Admin: 03/28/17 09:31 Dose: 50 mg Metoprolol Tartrate (Lopressor) 25 mg PO BID [facility] Last Admin: 03/28/17 18:17 Dose: Not Given Ondansetron HCl (Zofran Inj) 4 mg IVP Q6H PRN PRN Reason: Nausea/Vomiting Last Admin: 03/28/17 09:12 Dose: 4 mg Oxycodone HCl (Oxycodone Immediate Release Tab) 30 mg PO Q6H PRN PRN Reason: Pain, severe (8-10) Last Admin: 03/28/17 16:38 Dose: 30 mg Oxycodone/Acetaminophen (Percocet 5/325 Mg Tab) 1 tab PO Q4H PRN PRN Reason: Pain, moderate (4-7) Stop: 03/30/17 07:37 Pantoprazole Sodium (Protonix Ec Tab) 40 mg PO 0600,1600 [facility] Last Admin: 03/28/17 18:31 Dose: Not Given Sennosides (Senokot Tab) 17.2 mg PO HS [facility] Last Admin: 03/27/17 21:59 Dose: Not Given Zolpidem Tartrate (Ambien) 10 mg PO HS [facility] PRN Reason: Protocol Last Admin: 03/27/17 23:00 Dose: Not Given - Labs Labs: 03/28/17 06:30 03/28/17 06:30 PT 13.4 SECONDS (9.4-12.5) H 03/27/17 06:52 INR 1.21 (0.93-1.08) H 03/27/17 06:52 APTT 32.1 Seconds (25.1-36.5) 03/27/17 06:52 Assessment and Plan - Assessment and Plan (Free Text) Assessment: discussed w/ resident at length ortho wont discharge patient now w/ a sprain still observation
[2017-03-29 00:39] VITALS: RESP 18
[2017-03-29] MEDS: oxyCODONE 30 mg Immediate Release Tab PO PRN ×2 (03:58→09:53)
[2017-03-29] MEDS: Pantoprazole 40 mg EC Tab PO SCH (06:30)
[2017-03-29 07:51] LABS: HEMATOCRIT 28.7 % (36.0-48.0); MEAN CELL VOLUME 93.2 fl (80.0-105.0); MEAN CORPUSCULAR HEMOGLOBIN 29.9 pg (25.0-35.0); MEAN CORPUSCULAR HGB CONC 32.1 g/dl (31.0-37.0); MEAN PLATELET VOLUME 8.8 fl (7.0-11.0); RED CELL DISTRIBUTION WIDTH 15.4 % (11.5-14.5); WHITE BLOOD COUNT 3.9 10^3/ul (4.5-11.0)
[2017-03-29 08:10] VITALS: PULSE 64; TEMP 99; O2SAT 113
[2017-03-29 08:16] LABS: BLOOD UREA NITROGEN 10 mg/dL (7-21); CALCIUM 8.9 mg/dL (8.4-10.5); CARBON DIOXIDE 24 mmol/L (21-33); CHLORIDE 109 mmol/L (98-107); GFR AFRICAN-AMERICAN > 60; GLUCOSE,RANDOM 82 mg/dL (70-110); POTASSIUM 3.8 mmol/L (3.6-5.0); SODIUM 140 mmol/L (132-148)
[2017-03-29 10:33] VITALS: BP 113/63
--- NOTE | 2017-03-29 12:16 | CP.PCM.DIS ---
<Tabitha Gibson - Last Filed: 03/29/17 15:30> Provider - Provider Date of Admission: 03/26/17 17:51 Attending physician: Orestes Ho MD Primary care physician: John Amezquita MD Time Spent in preparation of Discharge (in minutes): 40 Hospital Course - Lab Results Lab Results: Most Recent Lab Values WBC 3.9 10^3/ul (4.5-11.0) L 03/29/17 06:30 RBC 3.08 10^6/uL (3.5-6.1) L 03/29/17 06:30 Hgb 9.2 g/dL (12.0-16.0) L 03/29/17 06:30 Hct 28.7 % (36.0-48.0) L 03/29/17 06:30 MCV 93.2 fl (80.0-105.0) 03/29/17 06:30 MCH 29.9 pg (25.0-35.0) 03/29/17 06:30 MCHC 32.1 g/dl (31.0-37.0) 03/29/17 06:30 RDW 15.4 % (11.5-14.5) H 03/29/17 06:30 Plt Count 295 10^3/uL (120.0-450.0) 03/29/17 06:30 MPV 8.8 fl (7.0-11.0) 03/29/17 06:30 Gran % 46.0 % (50.0-68.0) L 03/26/17 19:00 Lymph % (Auto) 37.0 % (22.0-35.0) H 03/26/17 19:00 Darke % (Auto) 14.5 % (1.0-6.0) H 03/26/17 19:00 Eos % (Auto) 2.0 % (1.5-5.0) 03/26/17 19:00 Baso % (Auto) 0.5 % (0.0-3.0) 03/26/17 19:00 Gran # 2.54 (1.4-6.5) 03/26/17 19:00 Lymph # 2.0 (1.2-3.4) 03/26/17 19:00 Darke # 0.8 (0.1-0.6) H 03/26/17 19:00 Eos # 0.1 (0.0-0.7) 03/26/17 19:00 Baso # 0.03 K/mm3 (0.0-2.0) 03/26/17 19:00 PT 13.4 SECONDS (9.4-12.5) H 03/27/17 06:52 INR 1.21 (0.93-1.08) H 03/27/17 06:52 APTT 32.1 Seconds (25.1-36.5) 03/27/17 06:52 Sodium 140 mmol/L (132-148) 03/29/17 06:30 Potassium 3.8 mmol/L (3.6-5.0) 03/29/17 06:30 Chloride 109 mmol/L (98-107) H 03/29/17 06:30 Carbon Dioxide 24 mmol/L (21-33) 03/29/17 06:30 Anion Gap 11 (10-20) 03/29/17 06:30 BUN 10 mg/dL (7-21) 03/29/17 06:30 Creatinine 0.7 mg/dL (0.7-1.2) 03/29/17 06:30 Est GFR ( Amer) > 60 03/29/17 06:30 Est GFR (Non-Af Amer) > 60 03/29/17 06:30 Random Glucose 82 mg/dL (70-110) 03/29/17 06:30 Calcium 8.9 mg/dL (8.4-10.5) 03/29/17 06:30 Total Bilirubin 0.6 mg/dL (0.2-1.3) 03/26/17 19:00 AST 23 U/L (14-36) 03/26/17 19:00 ALT 34 U/L (7-56) 03/26/17 19:00 Alkaline Phosphatase 65 U/L (38-126) 03/26/17 19:00 Total Protein 7.0 g/dL (5.8-8.3) 03/26/17 19:00 Albumin 3.8 g/dL (3.0-4.8) 03/26/17 19:00 Globulin 3.2 gm/dL 03/26/17 19:00 Albumin/Globulin Ratio 1.2 (1.1-1.8) 03/26/17 19:00 - Hospital Course Hospital Course: 61 yo Past Medical History of protein C deficiency, Coumadin induced skin necrosis, CVA, HTN, and DVT presenting s/p fall with acute slightly displaced fracture at base of RIGHT 5th metatarsal bone and minimal non-displaced fracture along edge of RIGHT patella on lateral side, confirmed with CT. Ortho was consulted, they did not recommend surgical intervention. Her right foot was placed in air cast. She is advised to wear air cast, and avoid placing weight on her foot. Patient was monitored and provided pain management She is to follow up within 1 week. Patient had recent workup for syncope, it showed no neurological or cardiogenic cause of syncope. While in the hospital patients other medical conditions were monitored. Ultrasound of the lower extremities showed no dvt. Patient states the pain has improved and is doing better overall. Discharge Exam - Head Exam Head Exam: ATRAUMATIC, NORMAL INSPECTION, NORMOCEPHALIC Discharge Plan - Follow Up Plan Condition: FAIR Disposition: HOME/ ROUTINE Instructions: Atrial Fibrillation (DC), Heart Healthy Diet (DC), Foot Fracture in Adults (DC) Additional Instructions: Patient is to follow up next week with Dr. Avila. Referrals: John Amezquita MD [Primary Care Provider] - Sae Avila DO [Staff Provider] - <Sander Lynn S - Last Filed: 03/30/17 07:41> Provider - Provider Date of Admission: 03/26/17 17:51 Attending physician: Orestes Ho MD Primary care physician: John Amezquita MD Hospital Course - Lab Results Lab Results: Most Recent Lab Values WBC 3.9 10^3/ul (4.5-11.0) L 03/29/17 06:30 RBC 3.08 10^6/uL (3.5-6.1) L 03/29/17 06:30 Hgb 9.2 g/dL (12.0-16.0) L 03/29/17 06:30 Hct 28.7 % (36.0-48.0) L 03/29/17 06:30 MCV 93.2 fl (80.0-105.0) 03/29/17 06:30 MCH 29.9 pg (25.0-35.0) 03/29/17 06:30 MCHC 32.1 g/dl (31.0-37.0) 03/29/17 06:30 RDW 15.4 % (11.5-14.5) H 03/29/17 06:30 Plt Count 295 10^3/uL (120.0-450.0) 03/29/17 06:30 MPV 8.8 fl (7.0-11.0) 03/29/17 06:30 Gran % 46.0 % (50.0-68.0) L 03/26/17 19:00 Lymph % (Auto) 37.0 % (22.0-35.0) H 03/26/17 19:00 Darke % (Auto) 14.5 % (1.0-6.0) H 03/26/17 19:00 Eos % (Auto) 2.0 % (1.5-5.0) 03/26/17 19:00 Baso % (Auto) 0.5 % (0.0-3.0) 03/26/17 19:00 Gran # 2.54 (1.4-6.5) 03/26/17 19:00 Lymph # 2.0 (1.2-3.4) 03/26/17 19:00 Darke # 0.8 (0.1-0.6) H 03/26/17 19:00 Eos # 0.1 (0.0-0.7) 03/26/17 19:00 Baso # 0.03 K/mm3 (0.0-2.0) 03/26/17 19:00 PT 13.4 SECONDS (9.4-12.5) H 03/27/17 06:52 INR 1.21 (0.93-1.08) H 03/27/17 06:52 APTT 32.1 Seconds (25.1-36.5) 03/27/17 06:52 Sodium 140 mmol/L (132-148) 03/29/17 06:30 Potassium 3.8 mmol/L (3.6-5.0) 03/29/17 06:30 Chloride 109 mmol/L (98-107) H 03/29/17 06:30 Carbon Dioxide 24 mmol/L (21-33) 03/29/17 06:30 Anion Gap 11 (10-20) 03/29/17 06:30 BUN 10 mg/dL (7-21) 03/29/17 06:30 Creatinine 0.7 mg/dL (0.7-1.2) 03/29/17 06:30 Est GFR ( Amer) > 60 03/29/17 06:30 Est GFR (Non-Af Amer) > 60 03/29/17 06:30 Random Glucose 82 mg/dL (70-110) 03/29/17 06:30 Calcium 8.9 mg/dL (8.4-10.5) 03/29/17 06:30 Total Bilirubin 0.6 mg/dL (0.2-1.3) 03/26/17 19:00 AST 23 U/L (14-36) 03/26/17 19:00 ALT 34 U/L (7-56) 03/26/17 19:00 Alkaline Phosphatase 65 U/L (38-126) 03/26/17 19:00 Total Protein 7.0 g/dL (5.8-8.3) 03/26/17 19:00 Albumin 3.8 g/dL (3.0-4.8) 03/26/17 19:00 Globulin 3.2 gm/dL 03/26/17 19:00 Albumin/Globulin Ratio 1.2 (1.1-1.8) 03/26/17 19:00 - Hospital Course Hospital Course: discussed w/ resident at length orders meds labs xrays and plans
== END 2017-03-29 14:51 | disposition home or self-care (01) ==
LOC: ED 14:20 → ERH 17:51 → 5RNO 21:01
PROVIDERS: ADMIT Internal Medicine; ATTEND Internal Medicine
DX: S92.351A Displaced fracture of fifth metatarsal bone, right foot, initial encounter for closed fracture (principal); S93.401A Sprain of unspecified ligament of right ankle, initial encounter; D68.59 Other primary thrombophilia; E78.5 Hyperlipidemia, unspecified; I10 Essential (primary) hypertension; I48.91 Unspecified atrial fibrillation; J45.909 Unspecified asthma, uncomplicated; Z80.3 Family history of malignant neoplasm of breast; Z86.73 Personal history of transient ischemic attack (TIA), and cerebral infarction without residual deficits; Z87.440 Personal history of urinary (tract) infections; Z90.710 Acquired absence of both cervix and uterus; Z98.84 Bariatric surgery status; M19.90 Unspecified osteoarthritis, unspecified site; Z86.718 Personal history of other venous thrombosis and embolism; Z90.13 Acquired absence of bilateral breasts and nipples; Z89.022 Acquired absence of left finger(s); Z89.021 Acquired absence of right finger(s)
CPT/HCPCS: 36415; 73700; 80048; 80053; 85025; 85027; 85610; 85730; 93971; 97161; 99283; G0378; G8978; G8979; J2405; J7040

== ENCOUNTER 2017-06-11 20:24 | Observation (INO) | payer MEDICARE, OTHER ==
--- NOTE | 2017-06-11 21:23 | ED PDOC ---
Arrival/HPI - General Chief Complaint: Weakness/Neurological Deficit Time Seen by Provider: 06/11/17 21:15 Historian: Patient - History of Present Illness Narrative History of Present Illness (Text): 06/11/17 21:17 A 61 year old female, whose past medical history includes CVA with residual speech deficits, presents to the emergency department complaining of worsening speech changes since yesterday. Patient reports she began having difficulty articulating and today noted having trouble finding her words. Patient states she was seen by her speech therapist today who noticed her speech was different than baseline and instructed her to come in for further evaluation. Patient notes mild shortness of breath but denies any fever, chills, nausea, vomiting, abdominal pain, chest pain or any other complaints. PMD: Dr. Amezquita Time/Duration: Other (yesterday) Symptom Course: Worsening Context: Home Past Medical History - Provider Review Nursing Documentation Reviewed: Yes - Infectious Disease Hx of Infectious Diseases: None - Tetanus Immunization Tetanus Immunization: Unknown - Cardiac Hx Cardiac Disorders: Yes Hx Hypertension: Yes - Pulmonary Hx Respiratory Disorders: Yes Hx Asthma: Yes - Neurological Hx Neurological Disorder: Yes HX Cerebrovascular Accident: Yes Hx Transient Ischemic Attacks (TIA): Yes - HEENT Hx HEENT Disorder: No - Renal Hx Renal Failure: Yes - Endocrine/Metabolic Hx Endocrine Disorders: No - Hematological/Oncological Hx Blood Disorders: No - Integumentary Hx Dermatological Disorder: Yes Other/Comment: 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 - Musculoskeletal/Rheumatological Hx Arthritis: Yes - Gastrointestinal Hx Gastrointestinal Disorders: Yes Hx Gall Bladder Disease: Yes Other/Comment: Gastric Bypass Surgery - Genitourinary/Gynecological Hx Genitourinary Disorders: Yes Hx Urinary Tract Infection: Yes - Psychiatric Hx Psychophysiologic Disorder: No Hx Substance Use: No - Past Surgical History Past Surgical History: Non-Contributing - Surgical History Hx Gastric Bypass Surgery: Yes Hx Hysterectomy: Yes Hx Mastectomy: Yes (B/L Mastectomy) Other/Comment: b/l middle fingers amputated - Anesthesia Hx Anesthesia: Yes Hx Anesthesia Reactions: No Hx Malignant Hyperthermia: No - Suicidal Assessment Feels Threatened In Home Enviroment: No Family/Social History - Physician Review Nursing Documentation Reviewed: Yes Family/Social History: No Known Family HX Smoking Status: Never Smoked Hx Alcohol Use: No Hx Substance Use: No Hx Substance Use Treatment: No Allergies/Home Meds Allergies/Adverse Reactions: Allergies Penicillins Allergy (Verified 06/11/17 20:54) ANGIOEDEMA/SHORTNESS OF BREATH ANGIOEDEMA SHORTNESS OF BREATH Home Medications: Home Meds Medication Instructions Recorded Confirmed Apixaban [Eliquis] 5 mg PO BID 03/26/17 03/26/17 Furosemide [Lasix] 40 mg PO DAILY 03/26/17 03/26/17 Gabapentin [Neurontin] 300 mg PO TID 03/26/17 03/26/17 Metoprolol Tartrate [Lopressor] 25 mg PO BID 03/26/17 03/26/17 Pantoprazole Sodium [Protonix] 40 mg PO BID 03/26/17 03/26/17 Valsartan [Diovan] 80 mg PO DAILY 03/26/17 03/26/17 Zolpidem [Ambien] 10 mg PO HS 03/26/17 03/26/17 oxyCODONE [oxyCODONE Immediate 30 mg PO QID 03/26/17 03/26/17 Release Tab] Review of Systems - Physician Review All systems were reviewed & negative as marked: Yes - Review of Systems Constitutional: absent: Fevers, Night Sweats Respiratory: absent: SOB, Cough, Sputum Cardiovascular: absent: Chest Pain Gastrointestinal: absent: Abdominal Pain, Nausea, Vomiting Neurological: Speech Changes Physical Exam Vital Signs Pulse Resp BP Pulse Ox 06/11/17 20:40 75 18 100/60 98 Temperature: Afebrile Blood Pressure: Normal Pulse: Regular Respiratory Rate: Normal Appearance: Positive for: Well-Appearing, Non-Toxic, Comfortable Pain Distress: None Mental Status: Positive for: Alert and Oriented X 3 Finger Stick Blood Glucose: 48 - Systems Exam Head: Present: Atraumatic, Normocephalic Pupils: Present: PERRL Extroacular Muscles: Present: EOMI Conjunctiva: Present: Normal Mouth: Present: Moist Mucous Membranes Neck: Present: Normal Range of Motion Respiratory/Chest: Present: Clear to Auscultation, Good Air Exchange. No: Respiratory Distress, Accessory Muscle Use Cardiovascular: Present: Regular Rate and Rhythm, Normal S1, S2. No: Murmurs Abdomen: Present: Normal Bowel Sounds. No: Tenderness, Distention, Peritoneal Signs Upper Extremity: Present: Normal Inspection. No: Cyanosis, Edema Lower Extremity: Present: Normal Inspection. No: Edema Neurological: Present: GCS=15, CN II-XII Intact. No: Speech Normal (slight word finding difficulty. baseline articulation (patient reports prior deficit from yesterday is now back to baseline post-cva)) Skin: Present: Warm, Dry, Normal Color. No: Rashes Psychiatric: Present: Alert, Oriented x 3, Normal Insight, Normal Concentration Medical Decision Making ED Course and Treatment: 06/11/17 21:17 Impression: A 61 year old female with difficulty articulating and finding her words. History of CVA, states her speech changes are not normal to baseline. On eliquis but reports allergy to aspirin. Plan: -- Head CT -- Chest xray -- EKG -- Labs -- Reassess and disposition Progress Notes: 06/11/17 22:28 EKG shows NSR at 73bpm with normal intervals and no st changes 06/11/17 22:[address] head and labs. Will need tele observation for tia while on eliquis 06/11/17 23:23 - Lab Interpretations Lab Results: 06/11/17 22:33 06/11/17 22:33 Lab Results 06/11/17 22:33: Sodium 138, Potassium 4.6, Chloride 111 H, Carbon Dioxide 16 L, Anion Gap 17, BUN 35 H, Creatinine 1.2, Est GFR ( Amer) 55, Est GFR (Non- Af Amer) 46, Random Glucose 93, Calcium 8.9, Total Bilirubin 0.7, AST 68 H D, ALT 65 H, Alkaline Phosphatase 105, Troponin I < 0.01, NT-Pro-B Natriuret Pep 142, Total Protein 7.6, Albumin 4.0, Globulin 3.6, Albumin/Globulin Ratio 1.1 06/11/17 22:33: WBC 8.5 D, RBC 3.49 L, Hgb 10.6 L, Hct 33.8 L, MCV 96.8 D, MCH 30.4, MCHC 31.4, RDW 15.2 H, Plt Count 210, MPV 9.9, Gran % 73.1 H, Lymph % (Auto) 19.2 L, Victoria % (Auto) 6.0, Eos % (Auto) 1.6, Baso % (Auto) 0.1, Gran # 6.22, Lymph # 1.6, Victoria # 0.5, Eos # 0.1, Baso # 0.01 06/11/17 21:38: POC Glucose (mg/dL) 66 06/11/17 20:46: POC Glucose (mg/dL) 48 L - RAD Interpretation Radiology Orders: 06/11/17 21:15 CHEST PORTABLE [RAD] Stat 06/11/17 21:16 HEAD W/O CONTRAST [CT] Stat NIHSS Scale ([place]) Time Performed: 21:15 - How Severe is the Stoke Baseline Level of Consciousness: 0=Alert LOC to Questions: 0=Both comments correct LOC to commands: 0=Obeys both correctly Best Gaze: 0=Normal Visual: 0=No visual loss Facial: 0=Normal Motor Arm - Left: 0=No drift Motor Arm - Right: 0=No drift Motor Leg - Left: 0=No drift Motor Leg - Right: 0=No drift Limb Ataxia: 0=Absent Sensory: 0=Normal Best Language: 1=Mild to moderate aphasia (intermittent word finding difficulty) Dysarthia: 0=Normal articulation Extinction & Inattention (Neglect): 0=Normal, no object Score: 1 Risk Level: Minor Stroke Risk rTPA Inclusion/Exclusion - Refusal of Treatment Patient Refused Treatment: No - Inclusion Criteria for Altepase Patient is 18 years or Older: Yes The Clinical Diagnosis of Ischemic Stroke That is Causing a Potentially Disabling Neurological Deficit: No Time of Onset is Well Established to be Less Than 270 Minute Before Treatment Would Begin: No Risk/Benefit Discussed With Patient/Family Member Present: No - Scribe Statement The provider has reviewed the documentation as recorded by the Leonaibchris Landry Provider Scribe Attestation: All medical record entries made by the Scribchris were at my direction and personally dictated by me. I have reviewed the chart and agree that the record accurately reflects my personal performance of the history, physical exam, medical decision making, and the department course for this patient. I have also personally directed, reviewed, and agree with the discharge instructions and disposition. Disposition/Present on Arrival - Present on Arrival Any Indicators Present on Arrival: No History of DVT/PE: No History of Uncontrolled Diabetes: No Urinary Catheter: No History of Decub. Ulcer: No History Surgical Site Infection Following: None - Disposition Have Diagnosis and Disposition been Completed?: Yes Diagnosis: TIA (transient ischemic attack) Disposition: HOSPITALIZED Disposition Time: 23:23 Condition: FAIR Referrals: Dedousis,Orestes, MD [Primary Care Provider] - Follow up with primary Forms: [employer] (Qatari)
[2017-06-11 22:49] LABS: ALB/GLOB RATIO 1.1 (1.1-1.8); ALT/SGPT 65 U/L (7-56); AST/SGOT 68 U/L (14-36); BLOOD UREA NITROGEN 35 mg/dL (7-21); CALCIUM 8.9 mg/dL (8.4-10.5); GFR AFRICAN-AMERICAN 55; GFR NON-AFRICAN AMERICAN 46
[2017-06-11 23:00] LABS: BASO # 0.01 K/mm3 (0.0-2.0); BASO % 0.1 % (0.0-3.0); EOS # 0.1 (0.0-0.7); EOS % 1.6 % (1.5-5.0); GRAN # 6.22 (1.4-6.5); GRAN % 73.1 % (50.0-68.0); HEMOGLOBIN 10.6 g/dL (12.0-16.0); LYMPH # 1.6 (1.2-3.4); LYMPH % 19.2 % (22.0-35.0); MEAN CELL VOLUME 96.8 fl (80.0-105.0); MEAN CORPUSCULAR HEMOGLOBIN 30.4 pg (25.0-35.0); MEAN CORPUSCULAR HGB CONC 31.4 g/dl (31.0-37.0); MEAN PLATELET VOLUME 9.9 fl (7.0-11.0); MONO # 0.5 (0.1-0.6); RBC 3.49 10^6/uL (3.5-6.1); RED CELL DISTRIBUTION WIDTH 15.2 % (11.5-14.5); WHITE BLOOD COUNT 8.5 10^3/ul (4.5-11.0)
[2017-06-11 23:14] LABS: B-TYPE NATRIURETIC PEPTIDE 142 pg/mL (0-450); TROPONIN I < 0.01 ng/mL
[2017-06-11 23:34] LABS: INR 1.29 (0.93-1.08); PARTIAL THROMBOPLASTIN TIME 35.1 Seconds (25.1-36.5); PROTHROMBIN TIME 14.8 SECONDS (9.4-12.5)
--- NOTE | 2017-06-12 00:20 | CT ---
EXAM: CT Head Without Intravenous Contrast EXAM DATE/TIME: 06/11/2017 9:16 PM CLINICAL HISTORY: The patient age is 61 years old and is female; Signs and symptoms; Other: Aphasia Facility exam id and description: Ct heads head w/o contrast TECHNIQUE: Axial computed tomography images of the head/brain without intravenous contrast. All CT scans at this facility use one or more dose reduction techniques, viz.: automated exposure control; ma/kV adjustment per patient size (including targeted exams where dose is matched to indication; i.e. head); or iterative reconstruction technique. Coronal and sagittal reformatted images were created and reviewed. COMPARISON: CT - HEAD W/O CONTRAST 2017-03-19 21:40 FINDINGS: Artifacts: Motion artifact limits this study. Brain: Motion artifact limits evaluation of intracranial hemorrhage at the base of the brain. There is no visualized acute intracranial hemorrhage on the remainder of the study. Although limited by motion artifact, the white-wisdom differentiation is preserved demonstrating no definitive acute territorial type infarct. There is mild prominence of the ventricles and sulci, compatible with atrophy. No acute intracranial hemorrhage is seen. Comment calcifications are visualized along the falx. Brainstem: Artifact limits evaluation of the mary kay. Midline shift: There is no midline shift. Ventricles: See above. Bones/joints: The calvarium demonstrates no evidence for a depressed fracture. There is a stable nonspecific sclerotic lesion within the right frontal skull. Soft tissues: No acute abnormality. Vasculature: There is atherosclerotic calcification of the cavernous internal carotid arteries. Sinuses: Unremarkable as visualized. No acute sinusitis. Mastoid air cells: No mastoid effusion. IMPRESSION: 1. No definitive acute territorial type infarct. 2. Motion artifact limits evaluation of intracranial hemorrhage at the base of the brain. There is no visualized acute intracranial hemorrhage on the remainder of the study. 3. Mild atrophy. 4. If further evaluation is clinically indicated, an MRI of the brain is recommended.
--- NOTE | 2017-06-12 00:58 | ED PDOC ---
Physical Exam - Physical Exam Narrative Physical Exam (Text): Signed out to me at change of shift pending Head CT prior to admission for TIA observation. IMPRESSION: 1. No definitive acute territorial type infarct. 2. Motion artifact limits evaluation of intracranial hemorrhage at the base of the brain. There is no visualized acute intracranial hemorrhage on the remainder of the study. 3. Mild atrophy. 4. If further evaluation is clinically indicated, an MRI of the brain is recommended. Vital Signs Pulse Resp BP Pulse Ox 06/12/17 00:51 67 18 117/86 98 06/11/17 20:40 75 18 100/60 98 Finger Stick Blood Glucose: 48 Medical Decision Making - Lab Interpretations Lab Results: 06/11/17 22:33 06/11/17 22:33 Lab Results 06/11/17 22:50: Blood Type A POSITIVE, Antibody Screen Negative, BBK History Checked Patient has bt 06/11/17 22:50: PT 14.8 H, INR 1.29 H, APTT 35.1 06/11/17 22:33: Sodium 138, Potassium 4.6, Chloride 111 H, Carbon Dioxide 16 L, Anion Gap 17, BUN 35 H, Creatinine 1.2, Est GFR ( Amer) 55, Est GFR (Non- Af Amer) 46, Random Glucose 93, Calcium 8.9, Total Bilirubin 0.7, AST 68 H D, ALT 65 H, Alkaline Phosphatase 105, Troponin I < 0.01, NT-Pro-B Natriuret Pep 142, Total Protein 7.6, Albumin 4.0, Globulin 3.6, Albumin/Globulin Ratio 1.1 06/11/17 22:33: WBC 8.5 D, RBC 3.49 L, Hgb 10.6 L, Hct 33.8 L, MCV 96.8 D, MCH 30.4, MCHC 31.4, RDW 15.2 H, Plt Count 210, MPV 9.9, Gran % 73.1 H, Lymph % (Auto) 19.2 L, [place] % (Auto) 6.0, Eos % (Auto) 1.6, Baso % (Auto) 0.1, Gran # 6.22, Lymph # 1.6, [place] # 0.5, Eos # 0.1, Baso # 0.01 06/11/17 21:38: POC Glucose (mg/dL) 66 06/11/17 20:46: POC Glucose (mg/dL) 48 L - RAD Interpretation Radiology Orders: 06/11/17 21:15 CHEST PORTABLE [RAD] Stat 06/11/17 21:16 HEAD W/O CONTRAST [CT] Stat Disposition/Present on Arrival - Present on Arrival Any Indicators Present on Arrival: No History of DVT/PE: No History of Uncontrolled Diabetes: No Urinary Catheter: No History of Decub. Ulcer: No History Surgical Site Infection Following: None - Disposition Have Diagnosis and Disposition been Completed?: Yes Diagnosis: TIA (transient ischemic attack) Disposition: HOSPITALIZED Disposition Time: 00:58 Patient Plan: Observation, Telemetry Patient Problems: Current Active Problems Problem Status Onset Transient ischemic attack (TIA) Acute Condition: FAIR Referrals: Orestes Ho MD [Primary Care Provider] - Follow up with primary Forms: [employer] (Polish)
--- NOTE | 2017-06-12 02:47 | CP.PCM.HP ---
History of Present Illness - History of Present Illness History of Present Illness: Mrs. 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 Patient reports that although she has not noticed any speech changes, she has been told by her friends that she has been slurring her words more so this week than she has in the past. Patient is noted to have residual speech deficits from previous CVA for which she sees speech therapy. At her scheduled speech therapy appointment earlier today, she was told by her therapist that she should seek emergency care for acute speech changes as this could indicate a CVA and this prompted patient to come in to the ED. Over the past week, she endorses a frontal right sided headache lasting 4-6 hours Thursday evening, intermittent numbness/tingling of her right lower extremity, insomnia and one episode of fatigue while walking that was resolved with rest. She notes that she does not believe these symptoms to be related and endorses that they are all symptoms of her various chronic illnesses. She also reports that she saw her pain management doctor on Thursday, who increased her Gabapentin dose from 300mg TID to 400mg TID as well as increase her oxycodone dosage. She denies any trauma, recent travel, fever, chills, changes in her vision/hearing/smell, facial droop, drooling, neck pain/ stiffness, chest pain, palpitations, syncope, leg swelling, orthopnea, SOB, cough, wheezing, hemoptysis, abdominal pain, N/V, diarrhea, constipation, melena , hematochezia, burning/pain with urination, hematuria, or skin changes. In the ED, she was noted to be afebrile and hemodynamically stable. She had a CT of her head without contrast that showed no acute intracranial abnormalities and had no significant abnormalities on a CBC, CMP, and coagulation studies. An EKG was also done and showed NSR at 73bpm. 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 Mom: Breast Ca, Dad: metastatic cancer, unknown Social History: Denies tobacco, alcohol or illicit drug use; ambulates with cane Allergies: Penicillins Meds: As per JUL PMD: Dr. Ho Oncology: Dr. Zendejas Present on Admission - Present on Admission Any Indicators Present on Admission: No Review of Systems - Review of Systems Review of Systems: As stated in HPI, otherwise negative Past Patient History - Infectious Disease Hx of Infectious Diseases: None - Tetanus Immunizations Tetanus Immunization: Unknown - Past Medical History & Family History Past Medical History?: Yes - Past Social History Smoking Status: Never Smoked - CARDIAC Hx Cardiac Disorders: Yes Hx Hypertension: Yes - PULMONARY Hx Respiratory Disorders: Yes Hx Asthma: Yes - NEUROLOGICAL Hx Neurological Disorder: Yes HX Cerebrovascular Accident: Yes Hx Transient Ischemic Attacks (TIA): Yes - HEENT Hx HEENT Problems: No - RENAL Hx Renal Failure: Yes - ENDOCRINE/METABOLIC Hx Endocrine Disorders: No - HEMATOLOGICAL/ONCOLOGICAL Hx Blood Disorders: No - INTEGUMENTARY Hx Dermatological Problems: Yes Other/Comment: 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 - MUSCULOSKELETAL/RHEUMATOLOGICAL Hx Arthritis: Yes - GASTROINTESTINAL Hx Gastrointestinal Disorders: Yes Hx Gall Bladder Disease: Yes Other/Comment: Gastric Bypass Surgery - GENITOURINARY/GYNECOLOGICAL Hx Genitourinary Disorders: Yes Hx Urinary Tract Infection: Yes - PSYCHIATRIC Hx Psychophysiologic Disorder: No Hx Substance Use: No - SURGICAL HISTORY Hx Gastric Bypass Surgery: Yes Hx Hysterectomy: Yes Hx Mastectomy: Yes (B/L Mastectomy) Other/Comment: b/l middle fingers amputated - ANESTHESIA Hx Anesthesia: Yes Hx Anesthesia Reactions: No Hx Malignant Hyperthermia: No Meds Allergies/Adverse Reactions: Allergies Allergy/AdvReac Type Severity Reaction Status Date / Time Penicillins Allergy ANGIOEDEMA/SHORTNESS Verified 06/11/17 20:54 OF BREATH Physical Exam - Constitutional Appears: Non-toxic, No Acute Distress - Head Exam Head Exam: ATRAUMATIC, NORMAL INSPECTION, NORMOCEPHALIC - Eye Exam Eye Exam: EOMI, Normal appearance, PERRL. absent: Conjunctival injection, Nystagmus, Periorbital swelling, Periorbital tenderness, Scleral icterus Pupil Exam: NORMAL ACCOMODATION, PERRL. absent: Fixed, Irregular, Miosis, Mydriatic, Unequal - ENT Exam ENT Exam: Mucous Membranes Moist, Normal Exam, Normal External Ear Exam, Normal Oropharynx (Noted to have several missing teeth; chronic). absent: Mucous Membranes Dry - Neck Exam Neck exam: Positive for: Full Rom, Normal Inspection. Negative for: Lymphadenopathy, Meningismus, Tenderness, Thyromegaly - Respiratory Exam Respiratory Exam: Clear to Auscultation Bilateral, NORMAL BREATHING PATTERN. absent: Accessory Muscle Use, Chest Wall Tenderness, Decreased Breath Sounds, Prolonged Expiratory Phase, Rales, Rhonchi, Wheezes, Respiratory Distress, Stridor - Cardiovascular Exam Cardiovascular Exam: REGULAR RHYTHM, RRR, +S1, +S2. absent: Bradycardia, Tachycardia, Clicks, Diastolic murmur, Gallop, Irregular Rhythm, JVD, Rubs, +S4 , Systolic Murmur - GI/Abdominal Exam GI & Abdominal Exam: Normal Bowel Sounds, Soft. absent: Bruit, Diminished Bowel Sounds, Distended, Firm, Guarding, Hernia, Hyperactive Bowel Sounds, Hypoactive Bowel Sounds, Mass, Organomegaly, Pulsatile Mass, Rebound, Rigid, Tenderness - Extremities Exam Extremities exam: Positive for: full ROM, normal capillary refill, normal inspection, pedal pulses present. Negative for: calf tenderness, joint swelling , pedal edema, tenderness - Back Exam Back exam: FULL ROM, NORMAL INSPECTION. absent: CVA tenderness (L), CVA tenderness (R), muscle spasm, paraspinal tenderness, rash noted, tenderness, vertebral tenderness - Neurological Exam Neurological exam: Alert, CN II-XII Intact, Oriented x3, Reflexes Normal - Psychiatric Exam Psychiatric exam: Normal Affect, Normal Mood - Skin Skin Exam: Dry, Intact, Normal Color, Warm Results - Vital Signs Recent Vital Signs: Last Vital Signs Temp Pulse 67 06/12/17 00:51 Resp 18 06/12/17 00:51 BP 117/86 06/12/17 00:51 Pulse Ox 98 06/12/17 00:51 - Labs Result Diagrams: 06/11/17 22:33 06/11/17 22:33 - EKG Data EKG shows normal: Sinus rhythm, Intervals, ST-T waves Rate: Normal Assessment & Plan - Assessment and Plan (Free Text) Assessment: 61 year old AAF with a past medical history significant for protein C deficiency , asthma, HLD, HTN, atrial fibrillation, DVT with IVC filter, previous CVA, and 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 In the ED, she was noted to be afebrile and hemodynamically stable. She had a CT of her head without contrast that showed no acute intracranial abnormalities and had no significant abnormalities on a CBC, CMP, and coagulation studies. An EKG was also done and showed NSR at 73bpm. Plan: 1. TIA Symptoms/Speech changes -CT Head showing no acute intracranial abnormalities -Passed nursing swallow evaluation -Holding all medications that can cause drowsiness -Neurochecks Q4H -Fall risk and Aspiration risk precautions -Neuro consult 2. History of Protein C Deficiency -CT Head showing no intracranial hemorrhage -Continue home eliquis 3. History of HTN -Continue home Losartan and Metoprolol -Monitor with scheduled VS -Heart Healthy Diet 4. History of Atrial Fibrillation -EKG showing NSR -Continue home eliquis GI Prophylaxis: Protonix DVT Prophylaxis: SCD's Patient seen and case discussed with attending, Dr. Shawn Garcia. - Date & Time Date: 06/12/17 Time: 02:47 Decision To Admit - Pt Status Changed To: Hospital Disposition Of: Observation - . Bed Request Type: Telemetry
[2017-06-12] MEDS ORDERED: Sodium Chloride 0.9% 1,000 ML IV STA (05:08)
[2017-06-12] MEDS: Pantoprazole 40 mg EC Tab PO SCH (06:17)
[2017-06-12] MEDS ORDERED: Magnesium Sulfate 2 GM in Sodium Chloride 0.9% 100 ML IVPB ONE (06:22)
[2017-06-12 07:36] LABS: BASO # 0.02 K/mm3 (0.0-2.0); BASO % 0.3 % (0.0-3.0); EOS # 0.2 (0.0-0.7); GRAN # 4.65 (1.4-6.5); GRAN % 62.8 % (50.0-68.0); LYMPH % 27.3 % (22.0-35.0); MEAN CELL VOLUME 95.5 fl (80.0-105.0); MEAN CORPUSCULAR HEMOGLOBIN 29.9 pg (25.0-35.0); MEAN CORPUSCULAR HGB CONC 31.3 g/dl (31.0-37.0); MEAN PLATELET VOLUME 9.3 fl (7.0-11.0); MONO # 0.5 (0.1-0.6); MONO % 6.6 % (1.0-6.0); RBC 3.34 10^6/uL (3.5-6.1); RED CELL DISTRIBUTION WIDTH 15.1 % (11.5-14.5); WHITE BLOOD COUNT 7.4 10^3/ul (4.5-11.0)
[2017-06-12 07:51] LABS: ALB/GLOB RATIO 1.1 (1.1-1.8); ALBUMIN 3.5 g/dL (3.0-4.8); ALT/SGPT 59 U/L (7-56); AST/SGOT 57 U/L (14-36); BLOOD UREA NITROGEN 30 mg/dL (7-21); CALCIUM 8.7 mg/dL (8.4-10.5); GFR AFRICAN-AMERICAN > 60; GFR NON-AFRICAN AMERICAN 56
[2017-06-12 08:01] LABS: HDL CHOLESTEROL 59 mg/dL (29-60)
[2017-06-12 08:12] LABS: LDL CHOLESTEROL 41 mg/dL (0-129)
--- NOTE | 2017-06-12 10:06 | RAD ---
HISTORY: aphasia COMPARISON: 03/19/2017 FINDINGS: LUNGS: No active pulmonary disease. PLEURA: No significant pleural effusion identified, no pneumothorax apparent. CARDIOVASCULAR: Normal. OSSEOUS STRUCTURES: No significant abnormalities. VISUALIZED UPPER ABDOMEN: Normal. OTHER FINDINGS: None. IMPRESSION: No active disease.
[2017-06-12] MEDS: Sodium Chloride 0.9% 1,000 ML IV SCH ×2 (11:52→22:01)
--- NOTE | 2017-06-12 12:30 | MRI ---
PROCEDURE: MRI BRAIN WITHOUT CONTRAST HISTORY: TIA COMPARISON: 03/20/2017 MRI TECHNIQUE: Multiplanar, multisequence MR images of the brain were obtained without intravenous contrast enhancement. FINDINGS: HEMORRHAGE: None DWI: No evidence of an acute or early subacute infarction. BRAIN PARENCHYMA: No mass effect or edema. Minimal microvascular ischemic changes are seen in the mary kay. This is unchanged. There are no acute intracranial findings VENTRICLES: Unremarkable. No hydrocephalus. CRANIUM: Unremarkable. ORBITS: Grossly unremarkable. PARANASAL SINUSES/MASTOIDS: Clear VASCULAR SYSTEM: Skull base flow voids intact. OTHER FINDINGS: None. IMPRESSION: No acute findings
--- NOTE | 2017-06-12 12:32 | MRI ---
PROCEDURE: Magnetic Resonance Angiography Brain HISTORY: TIA COMPARISON: None available. TECHNIQUE: 3D time of flight MR angiography of the intracranial arteries was performed. Rotating maximum intensity projection images were generated. FINDINGS: INTERNAL CAROTID ARTERIES: Unremarkable. The skull base, petrous, cavernous and supraclinoid segments are bilaterally widely patient. ANTERIOR CEREBRAL ARTERIES: Unremarkable. A1 and A2 segments are widely patent. Smaller distal branches unremarkable, as visualized. MIDDLE CEREBRAL ARTERIES: Unremarkable. M1 and M2 segments are widely patent. Perisylvian branches grossly symmetric. POSTERIOR CIRCULATION: Basilar Artery: Unremarkable. Distal Vertebral Arteries: Unremarkable. Posterior Cerebral Arteries: Unremarkable. Posterior Inferior Cerebellar Arteries: Unremarkable. ANEURYSM/ VASCULAR MALFORMATIONS: None. OTHER FINDINGS: None. IMPRESSION: Unremarkable MR angiography of the brain.
--- NOTE | 2017-06-12 12:34 | MRI ---
PROCEDURE: MR Angiography of the neck without contrast HISTORY: TIA COMPARISON: None available. TECHNIQUE: 3D [id number] angiography of the neck was performed. Rotating maximum intensity projection images of the cervical carotid and vertebral arteries were generated. The origins of the common carotid arteries were not visualized, which is a limitation inherent to the non-contrast time of flight technique. FINDINGS: RIGHT CAROTID ARTERIES: Common Carotid Artery: Normal. Carotid Bifurcation: Normal. Internal Carotid Artery:Normal. External Carotid Artery (proximal branches): Normal. LEFT CAROTID ARTERIES: Common Carotid Artery: Normal. Carotid Bifurcation: Normal. Internal Carotid Artery:Normal. External Carotid Artery (proximal branches): Normal. VERTEBRAL ARTERIES: Right Vertebral Artery: Normal. Left Vertebral Artery: Dominant OTHER FINDINGS: None. IMPRESSION: Normal MR Angiography of the neck.
[2017-06-12 14:25] VITALS: BMI 31.0
[2017-06-12] MEDS ORDERED: Pneumococcal 23-Valent Vaccine IM ONE (14:25)
[2017-06-12] MEDS ORDERED: Influenza Vaccine 60 mcg/0.5 mL SYR (4YR UP) IM ONE (14:25)
--- NOTE | 2017-06-12 16:03 | US ---
PROCEDURE: Left carotid duplex arterial ultrasound HISTORY: TIA PHYSICIAN(S): Stewart Aden MD. TECHNIQUE: The right carotid could not be evaluated due to the central line. FINDINGS: Mild smooth hypoechoic plaque is noted at the left carotid bifurcation. The peak systolic velocity in the proximal left internal carotid artery is 94 cm/second. This is consistent with a 20-39 percent proximal left ICA stenosis. Normal velocities seen in the proximal left external carotid artery. There is antegrade flow in the left vertebral artery. IMPRESSION: 20-39 percent proximal left ICA stenosis The right carotid could not be evaluated due to the central line.
--- NOTE | 2017-06-12 20:28 | CARD ---
APPROVED REPORT EKG Measurement Heart [id number] <Conclusion> Normal sinus rhythm Normal ECG
[2017-06-12] MEDS: oxyCODONE 30 mg Immediate Release Tab PO PRN (22:08)
[2017-06-13] MEDS: oxyCODONE 30 mg Immediate Release Tab PO PRN ×3 (05:13→19:44)
[2017-06-13] MEDS: Pantoprazole 40 mg EC Tab PO SCH (05:22)
[2017-06-13 07:33] LABS: BASO # 0.01 K/mm3 (0.0-2.0); BASO % 0.1 % (0.0-3.0); EOS % 0.5 % (1.5-5.0); GRAN # 5.26 (1.4-6.5); GRAN % 69.4 % (50.0-68.0); HEMOGLOBIN 8.6 g/dL (12.0-16.0); LYMPH # 1.7 (1.2-3.4); LYMPH % 22.2 % (22.0-35.0); MEAN CELL VOLUME 93.8 fl (80.0-105.0); MEAN CORPUSCULAR HEMOGLOBIN 29.8 pg (25.0-35.0); MEAN CORPUSCULAR HGB CONC 31.7 g/dl (31.0-37.0); MEAN PLATELET VOLUME 9.1 fl (7.0-11.0); MONO # 0.6 (0.1-0.6); MONO % 7.8 % (1.0-6.0); RBC 2.89 10^6/uL (3.5-6.1); RED CELL DISTRIBUTION WIDTH 14.8 % (11.5-14.5); WHITE BLOOD COUNT 7.6 10^3/ul (4.5-11.0)
[2017-06-13 07:58] LABS: ALBUMIN 3.2 g/dL (3.0-4.8); ALT/SGPT 51 U/L (7-56); AST/SGOT 33 U/L (14-36); BLOOD UREA NITROGEN 20 mg/dL (7-21); CALCIUM 8.9 mg/dL (8.4-10.5); GFR AFRICAN-AMERICAN > 60; GFR NON-AFRICAN AMERICAN > 60
[2017-06-13] MEDS: Sodium Chloride 0.9% 1,000 ML IV SCH (09:01)
--- NOTE | 2017-06-13 13:00 | CP.PCM.PN ---
<Shlomo Thomas - Last Filed: 06/13/17 12:57> Subjective - Date & Time of Evaluation Date of Evaluation: 06/13/17 Time of Evaluation: 12:57 - Subjective Subjective: Medicine Progress Note Pt seen and examined at bedside. No acute overnight events. Pt states that her right leg feels a little week. But overall feels better. No speech difficulties. Pt tolerates diet. Pt denied chest pain, shortness of breath, nausea, vomiting, diarrhea, abdominal pain, fever, chills, headache, or dizziness. Objective - Vital Signs/Intake and Output Vital Signs (last 24 hours): Temp Pulse Resp BP Pulse Ox 98.2 F 80 18 104/60 99 06/13/17 08:48 06/13/17 08:48 06/13/17 08:48 06/13/17 08:48 06/13/17 08:48 Intake and Output: 06/13/17 06/13/17 06:59 18:59 Intake Total 1860 Balance 1860 - Medications Medications: Current Medications Apixaban (Eliquis) 5 mg PO BID ALEXI PRN Reason: Protocol Last Admin: 06/13/17 09:00 Dose: 5 mg Aspirin (Aspirin Chewable) 81 mg PO DAILY [facility] Last Admin: 06/13/17 09:00 Dose: 81 mg Gabapentin (Neurontin) 400 mg PO TID ALEXI PRN Reason: Protocol Last Admin: 06/13/17 09:00 Dose: 400 mg Losartan Potassium (Cozaar) 50 mg PO DAILY [facility] Metoprolol Tartrate (Lopressor) 25 mg PO BID [facility] Oxycodone HCl (Oxycodone Immediate Release Tab) 30 mg PO TID PRN PRN Reason: Pain, severe (8-10) Last Admin: 06/13/17 11:25 Dose: 30 mg Pantoprazole Sodium (Protonix Ec Tab) 40 mg PO 0600 [facility] Last Admin: 06/13/17 05:22 Dose: 40 mg Zolpidem Tartrate (Ambien) 10 mg PO HS [facility] PRN Reason: Protocol Last Admin: 06/12/17 22:09 Dose: 10 mg - Labs Labs: 06/13/17 06:40 06/13/17 06:40 PT 14.8 SECONDS (9.4-12.5) H 06/11/17 22:50 INR 1.29 (0.93-1.08) H 06/11/17 22:50 APTT 35.1 Seconds (25.1-36.5) 06/11/17 22:50 - Constitutional Appears: No Acute Distress - Head Exam Head Exam: NORMAL INSPECTION - Eye Exam Eye Exam: Normal appearance - ENT Exam ENT Exam: Normal Exam - Neck Exam Neck Exam: Normal Inspection - Respiratory Exam Respiratory Exam: Clear to Ausculation Bilateral. absent: Rales, Rhonchi, Wheezes - Cardiovascular Exam Cardiovascular Exam: RRR, +S1, +S2. absent: Gallop, Rubs, Murmur - GI/Abdominal Exam GI & Abdominal Exam: Soft. absent: Distended, Guarding, Tenderness, Rebound - Extremities Exam Extremities Exam: Normal Inspection - Back Exam Back Exam: NORMAL INSPECTION - Neurological Exam Neurological Exam: Alert, Awake, Oriented x3 Neuro motor strength exam: Left Upper Extremity: 5, Right Upper Extremity: 5, Left Lower Extremity: 5, Right Lower Extremity: 4 - Psychiatric Exam Psychiatric exam: Normal Affect, Normal Mood - Skin Skin Exam: Dry, Intact, Normal Color, Warm Assessment and Plan - Assessment and Plan (Free Text) Assessment: 61 year old AAF with a past medical history significant for protein C deficiency , asthma, HLD, HTN, atrial fibrillation, DVT with IVC filter, previous CVA, and 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 In the ED, she was noted to be afebrile and hemodynamically stable. She had a CT of her head without contrast that showed no acute intracranial abnormalities. Pt admitted for evaluation for possible TIA. Plan: 1. TIA Symptoms/Speech changes -CT Head showing no acute intracranial abnormalities -Brain MRI, Head MRA, Neck MRA negative -Neurochecks Q4H -Fall risk and Aspiration risk precautions -Neuro consult -Cont ASA -Hold Lopressor, Losartan 2. History of Protein C Deficiency -CT Head showing no intracranial hemorrhage -Continue home eliquis 3. History of HTN -Holding Lopressor, Losartan -Cont to monitor -Heart Healthy Diet 4. History of Atrial Fibrillation -Continue home eliquis 5. Anemia of Chronic Disease - Venofer given - Cont to monitor GI Prophylaxis: Protonix DVT Prophylaxis: SCD's Pt seen and discussed in detail with Dr. Sherman. Ted Thomas PGY1 <Chilo Sherman - Last Filed: 06/13/17 15:31> Objective - Vital Signs/Intake and Output Vital Signs (last 24 hours): Temp Pulse Resp BP Pulse Ox 98.2 F 80 18 104/60 99 06/13/17 08:48 06/13/17 08:48 06/13/17 08:48 06/13/17 08:48 06/13/17 08:48 Intake and Output: 06/13/17 06/13/17 06:59 18:59 Intake Total 1860 Balance 1860 - Medications Medications: Current Medications Apixaban (Eliquis) 5 mg PO BID ALEXI PRN Reason: Protocol Last Admin: 06/13/17 09:00 Dose: 5 mg Aspirin (Aspirin Chewable) 81 mg PO DAILY [facility] Last Admin: 06/13/17 09:00 Dose: 81 mg Gabapentin (Neurontin) 400 mg PO TID ALEXI PRN Reason: Protocol Last Admin: 06/13/17 13:53 Dose: 400 mg Losartan Potassium (Cozaar) 50 mg PO DAILY [facility] Metoprolol Tartrate (Lopressor) 25 mg PO BID [facility] Oxycodone HCl (Oxycodone Immediate Release Tab) 30 mg PO TID PRN PRN Reason: Pain, severe (8-10) Last Admin: 06/13/17 11:25 Dose: 30 mg Pantoprazole Sodium (Protonix Ec Tab) 40 mg PO 0600 [facility] Last Admin: 06/13/17 05:22 Dose: 40 mg Zolpidem Tartrate (Ambien) 10 mg PO HS [facility] PRN Reason: Protocol Last Admin: 06/12/17 22:09 Dose: 10 mg - Labs Labs: 06/13/17 06:40 06/13/17 06:40 PT 14.8 SECONDS (9.4-12.5) H 06/11/17 22:50 INR 1.29 (0.93-1.08) H 06/11/17 22:50 APTT 35.1 Seconds (25.1-36.5) 06/11/17 22:50 Attending/Attestation - Attestation I have personally seen and examined this patient.: Yes I have fully participated in the care of the patient.: Yes I have reviewed all pertinent clinical information, including history, physical exam and plan: Yes Notes (Text): 06/13/17 15:23 Attending note; Patient seen and examined with resident . 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 Admitted to rule out TIA. Neurology evaluation appreciated. MRI MRA negative. dizziness and generalized weakness; due to anemia. Patient does not tolerate by mouth iron as outpatient. Will give IV iron. Patient had extensive workup for anemia as outpatient. Follows up with hematology as outpatient. Possible discharge home tomorrow. Upon discharge the patient will follow-up with PMD DR. Ho.
--- NOTE | 2017-06-13 15:16 | CP.PCM.CON ---
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 Patient reports that although she has not noticed any speech changes, she has been told by her friends that she has been slurring her words more so this week than she has in the past. Patient is noted to have residual speech deficits from previous CVA for which she sees speech therapy. At her scheduled speech therapy appointment earlier today, she was told by her therapist that she should seek emergency care for acute speech changes as this could indicate a CVA and this prompted patient to come in to the ED. Over the past week, she endorses a frontal right sided headache lasting 4-6 hours Thursday evening, intermittent numbness/tingling of her right lower extremity, insomnia and one episode of fatigue while walking that was resolved with rest. She notes that she does not believe these symptoms to be related and endorses that they are all symptoms of her various chronic illnesses. She also reports that she saw her pain management doctor on Thursday, who increased her Gabapentin dose from 300mg TID to 400mg TID as well as increase her oxycodone dosage. She denies any trauma, recent travel, fever, chills, changes in her vision/hearing/smell, facial droop, drooling, neck pain/ stiffness, chest pain, palpitations, syncope, leg swelling, orthopnea, SOB, cough, wheezing, hemoptysis, abdominal pain, N/V, diarrhea, constipation, melena , hematochezia, burning/pain with urination, hematuria, or skin changes. In the ED, she was noted to be afebrile and hemodynamically stable. She had a CT of her head without contrast that showed no acute intracranial abnormalities and had no significant abnormalities on a CBC, CMP, and coagulation studies. An EKG was also done and showed NSR at 73bpm. 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 Mom: Breast Ca, Dad: metastatic cancer, unknown Social History: Denies tobacco, alcohol or illicit drug use; ambulates with cane Allergies: Penicillins Meds: As per JUL PMD: Dr. Ho Oncology: Dr. Zendejas Past Patient History - Infectious Disease Hx of Infectious Diseases: None - Tetanus Immunizations Tetanus Immunization: Unknown - Past Medical History & Family History Past Medical History?: Yes - Past Social History Smoking Status: Never Smoked - CARDIAC Hx Cardiac Disorders: Yes Hx Hypertension: Yes - PULMONARY Hx Respiratory Disorders: Yes Hx Asthma: Yes - NEUROLOGICAL Hx Neurological Disorder: Yes HX Cerebrovascular Accident: Yes Hx Transient Ischemic Attacks (TIA): Yes - HEENT Hx HEENT Problems: No - RENAL Hx Renal Failure: Yes - ENDOCRINE/METABOLIC Hx Endocrine Disorders: No - HEMATOLOGICAL/ONCOLOGICAL Hx Blood Disorders: No - INTEGUMENTARY Hx Dermatological Problems: Yes Other/Comment: 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 - MUSCULOSKELETAL/RHEUMATOLOGICAL Hx Arthritis: Yes - GASTROINTESTINAL Hx Gastrointestinal Disorders: Yes Hx Gall Bladder Disease: Yes Other/Comment: Gastric Bypass Surgery - GENITOURINARY/GYNECOLOGICAL Hx Genitourinary Disorders: Yes Hx Urinary Tract Infection: Yes - PSYCHIATRIC Hx Psychophysiologic Disorder: No Hx Substance Use: No - SURGICAL HISTORY Hx Gastric Bypass Surgery: Yes Hx Hysterectomy: Yes Hx Mastectomy: Yes (B/L Mastectomy) Other/Comment: b/l middle fingers amputated - ANESTHESIA Hx Anesthesia: Yes Hx Anesthesia Reactions: No Hx Malignant Hyperthermia: No Meds Allergies/Adverse Reactions: Allergies Allergy/AdvReac Type Severity Reaction Status Date / Time Penicillins Allergy ANGIOEDEMA/SHORTNESS Verified 06/11/17 20:54 OF BREATH - Medications Medications: Current Medications Apixaban (Eliquis) 5 mg PO BID [facility] PRN Reason: Protocol Aspirin (Aspirin Chewable) 81 mg PO DAILY [facility] Last Admin: 06/12/17 10:25 Dose: 81 mg Sodium Chloride (Sodium Chloride 0.9%) 1,000 mls @ 100 mls/hr IV .Q10H [facility] Ibuprofen (Motrin Tab) 400 mg PO Q6H PRN PRN Reason: Headache Last Admin: 06/12/17 03:15 Dose: 400 mg Losartan Potassium (Cozaar) 50 mg PO DAILY [facility] Metoprolol Tartrate (Lopressor) 25 mg PO BID [facility] Pantoprazole Sodium (Protonix Ec Tab) 40 mg PO 0600 [facility] Last Admin: 06/12/17 06:17 Dose: 40 mg Physical Exam - Neurological Exam Neurological exam: Abnormal Gait, Motor Sensory Deficit - Expanded Neurological Exam Expanded Patient oriented to: person, place, time Speech: Fluid Speech Cranial nerves: EOM's Intact: Normal Ataxia: No Cerebellar Function: Finger to Nose: Normal, Heel to Menjivar: Normal, Romberg: Normal Upper motor neuron: Babinski Sign: Normal, Nitesh Neglect: Normal, Pronator Drift : Normal, Sensory Extinction: Normal Sensory exam: Lower Extremity 2 Point Discrimination: Abnormal Right, Lower Extremity Light Touch: Abnormal Right, Lower Extremity Pin Prick: Abnormal Right , Lower Extremity Temperature: Abnormal Right, Upper Extremity 2 Point Discrimination: Abnormal Right, Upper Extremity Light Touch: Abnormal Right, Upper Extremity Pin Prick: Abnormal Right, Upper Extremity Temperature: Abnormal Right Neuro motor strength exam: Left Upper Extremity: 5, Right Upper Extremity: 5, Left Lower Extremity: 5, Right Lower Extremity: 3 DTR: Achilles Tendon Left: 1+, Achilles Tendon Right: 1+, Bicep Left: 1+, Bicep Right: 1+, Brachioradialis Left: 1+, Brachioradialis Right: 1+, Patellar Left: 1 +, Patellar Right: 1+, Tricep Left: 1+, Tricep Right: 1+ Coma Scale Verbal: Oriented Results - Vital Signs Recent Vital Signs: Last Vital Signs Temp 98 F 06/12/17 07:25 Pulse 74 06/12/17 07:56 Resp 18 06/12/17 07:56 BP 103/59 L 06/12/17 07:56 Pulse Ox 96 06/12/17 07:56 - Labs Result Diagrams: 06/13/17 06:40 06/13/17 06:40 Labs: Laboratory Results - last 24 hr 06/12/17 06/12/17 06/12/17 02:29 02:32 07:10 WBC 7.4 RBC 3.34 L Hgb 10.0 L Hct 31.9 L MCV 95.5 MCH 29.9 MCHC 31.3 RDW 15.1 H Plt Count 210 MPV 9.3 Gran % 62.8 Lymph % (Auto) 27.3 [place] % (Auto) 6.6 H Eos % (Auto) 3.0 Baso % (Auto) 0.3 Gran # 4.65 Lymph # 2.0 [place] # 0.5 Eos # 0.2 Baso # 0.02 ESR Sodium Potassium Chloride Carbon Dioxide Anion Gap BUN Creatinine Est GFR ( Amer) Est GFR (Non-Af Amer) POC Glucose (mg/dL) 38 L* 53 L Random Glucose Calcium Total Bilirubin AST ALT Alkaline Phosphatase Total Protein Albumin Globulin Albumin/Globulin Ratio Triglycerides Cholesterol LDL Cholesterol Direct HDL Cholesterol 06/12/17 06/12/17 06/12/17 07:10 07:10 07:30 WBC RBC Hgb Hct MCV MCH MCHC RDW Plt Count MPV Gran % Lymph % (Auto) [place] % (Auto) Eos % (Auto) Baso % (Auto) Gran # Lymph # [place] # Eos # Baso # ESR 24 H Sodium 139 Potassium 4.1 Chloride 112 H Carbon Dioxide 18 L Anion Gap 13 BUN 30 H Creatinine 1.0 Est GFR ( Amer) > 60 Est GFR (Non-Af Amer) 56 POC Glucose (mg/dL) Random Glucose 70 Calcium 8.7 Total Bilirubin 0.7 AST 57 H ALT 59 H Alkaline Phosphatase 103 Total Protein 6.8 Albumin 3.5 Globulin 3.3 Albumin/Globulin Ratio 1.1 Triglycerides 83 Cholesterol 131 LDL Cholesterol Direct 41 HDL Cholesterol 59 06/12/17 07:36 WBC RBC Hgb Hct MCV MCH MCHC RDW Plt Count MPV Gran % Lymph % (Auto) [place] % (Auto) Eos % (Auto) Baso % (Auto) Gran # Lymph # [place] # Eos # Baso # ESR Sodium Potassium Chloride Carbon Dioxide Anion Gap BUN Creatinine Est GFR ( Amer) Est GFR (Non-Af Amer) POC Glucose (mg/dL) 71 Random Glucose Calcium Total Bilirubin AST ALT Alkaline Phosphatase Total Protein Albumin Globulin Albumin/Globulin Ratio Triglycerides Cholesterol LDL Cholesterol Direct HDL Cholesterol Assessment & Plan - Assessment and Plan (Free Text) Assessment: 61 yr old woman with possible new ischemic stroke. Stroke workup: MRI/MRA Brain pending. Would like to do CTA but patient has renal dysfunction. Carotid Dopplers ECHO DVT prophylaxis with Sq heparin physical therapy
--- NOTE | 2017-06-13 15:18 | CP.PCM.PN ---
Subjective - Date & Time of Evaluation Date of Evaluation: 06/13/17 Time of Evaluation: 11:00 - Subjective Subjective: Patient has no new complaitns. No weakness, no aphasia, dysarthria, headache. Stroke workup completed. Objective - Vital Signs/Intake and Output Vital Signs (last 24 hours): Temp Pulse Resp BP Pulse Ox 98.2 F 80 18 104/60 99 06/13/17 08:48 06/13/17 08:48 06/13/17 08:48 06/13/17 08:48 06/13/17 08:48 Intake and Output: 06/13/17 06/13/17 06:59 18:59 Intake Total 1860 Balance 1860 - Medications Medications: Current Medications Apixaban (Eliquis) 5 mg PO BID [facility] PRN Reason: Protocol Last Admin: 06/13/17 09:00 Dose: 5 mg Aspirin (Aspirin Chewable) 81 mg PO DAILY [facility] Last Admin: 06/13/17 09:00 Dose: 81 mg Gabapentin (Neurontin) 400 mg PO TID [facility] PRN Reason: Protocol Last Admin: 06/13/17 13:53 Dose: 400 mg Losartan Potassium (Cozaar) 50 mg PO DAILY [facility] Metoprolol Tartrate (Lopressor) 25 mg PO BID [facility] Oxycodone HCl (Oxycodone Immediate Release Tab) 30 mg PO TID PRN PRN Reason: Pain, severe (8-10) Last Admin: 06/13/17 11:25 Dose: 30 mg Pantoprazole Sodium (Protonix Ec Tab) 40 mg PO 0600 [facility] Last Admin: 06/13/17 05:22 Dose: 40 mg Zolpidem Tartrate (Ambien) 10 mg PO HS [facility] PRN Reason: Protocol Last Admin: 06/12/17 22:09 Dose: 10 mg - Labs Labs: 06/13/17 06:40 06/13/17 06:40 PT 14.8 SECONDS (9.4-12.5) H 06/11/17 22:50 INR 1.29 (0.93-1.08) H 06/11/17 22:50 APTT 35.1 Seconds (25.1-36.5) 06/11/17 22:50 - Neurological Exam Neuro motor strength exam: Left Upper Extremity: 5, Right Upper Extremity: 5, Left Lower Extremity: 5, Right Lower Extremity: 5 Assessment and Plan - Assessment and Plan (Free Text) Assessment: 61 yr old woman with resolvd most likely tia, now stable with completed stroke workup. Plan: 1. Continue current anticoagulation regimen. 2. Follow up with neurology in one month.
--- NOTE | 2017-06-13 15:24 | CARD ---
APPROVED REPORT EXAM: Two-dimensional and M-mode echocardiogram with Doppler and color Doppler. INDICATION CVA/TIA 2D DIMENSIONS Left Atrium (2D)3.9 (1.6-4.0cm)IVSd1.3 (0.7-1.1cm) Aortic Root (2D)2.7 (2.0-3.7cm)LVDd4.3 (3.9-5.9cm) PWd1.2 (0.7-1.1cm)LVDs2.6 (2.5-4.0cm) FS (%) 38.7 %LVEF (%)69.5 (>50%) M-Mode DIMENSIONS Aortic Cusp Exc.1.90 (1.5-2.0cm) Mitral Valve MV E Ybfluglj13.5cm/sMV A Agcngryi739.0cm/sE/A ratio0.8 TDI Lateral E' Peak V9.40cm/sMedial E' Peak V7.51cm/sE/Lateral E'8.1 E/Medial E'10.2 Pulmonary Valve PV Peak Zssskcyx116.0cm/sPV Peak Grad.6mmHg Tricuspid Valve TR Peak Cdgdeerr203ds/sRAP [id number] Peak Gr.34mmHg [id number] LEFT VENTRICLE The left ventricle is normal size. There is mild concentric left ventricular hypertrophy. The left ventricular function is normal. The left ventricular ejection fraction is within the normal range. There is normal LV segmental wall motion. Transmitral Doppler flow pattern is Grade I-abnormal relaxation pattern. RIGHT VENTRICLE The right ventricle is normal size. There is normal right ventricular wall thickness. The right ventricular systolic function is normal. ATRIA The left atrium size is normal. The right atrium size is normal. AORTIC VALVE The aortic valve is mildly thickened. No aortic regurgitation is present. There is no aortic valvular stenosis. MITRAL VALVE The mitral valve is mildly thickened. There is no mitral valve regurgitation noted. There is no mitral valve stenosis. TRICUSPID VALVE There is mild tricuspid regurgitation. There is mild pulmonary hypertension. GREAT VESSELS The aortic root is normal in size. The IVC is normal in size and collapses >50% with inspiration. <Conclusion> The left ventricle is normal size. There is mild concentric left ventricular hypertrophy. The left ventricular function is normal. The left ventricular ejection fraction is within the normal range. There is normal LV segmental wall motion. Transmitral Doppler flow pattern is Grade I-abnormal relaxation pattern. There is mild tricuspid regurgitation. There is mild pulmonary hypertension.
[2017-06-13 19:44] VITALS: RESP 20
[2017-06-13] MEDS: guaiFENesin DM 100 mg-10 mg/5 ml UD PO PRN (22:21)
[2017-06-14] MEDS: oxyCODONE 30 mg Immediate Release Tab PO PRN (05:39)
[2017-06-14] MEDS: guaiFENesin DM 100 mg-10 mg/5 ml UD PO PRN (05:40)
--- NOTE | 2017-06-14 07:09 | CP.PCM.PN ---
Subjective - Date & Time of Evaluation Date of Evaluation: 06/14/17 Time of Evaluation: 07:06 - Subjective Subjective: Ms. Redd Lam was seen and examined at the bedside. She is alert, oriented with mild dysarthyria. She claims of experiencing frontal headache x 2 days, with pain scale of 6/10, with occasional radiating to the right orbital area. She denies any blurred vision, numbness, dizziness, nausea, or vomiting. She is able to follow simple commands. MRI of the brain showed unremarkable and carotid doppler showed 20-39 stenosis of the left ICA, right ICA was unable to perform due to patient's IV access.There was no untoward events overnight. Objective - Vital Signs/Intake and Output Vital Signs (last 24 hours): Temp Pulse Resp BP Pulse Ox 99.1 F 78 20 122/79 98 06/13/17 16:00 06/14/17 02:00 06/13/17 16:00 06/13/17 16:00 06/13/17 16:00 - Medications Medications: Current Medications Apixaban (Eliquis) 5 mg PO BID [facility] PRN Reason: Protocol Last Admin: 06/13/17 17:36 Dose: 5 mg Aspirin (Aspirin Chewable) 81 mg PO DAILY [facility] Last Admin: 06/13/17 09:00 Dose: 81 mg Gabapentin (Neurontin) 400 mg PO TID [facility] PRN Reason: Protocol Last Admin: 06/13/17 17:36 Dose: 400 mg Guaifenesin/Dextromethorphan (Robitussin Dm) 5 ml PO Q4H PRN PRN Reason: Cough Last Admin: 06/14/17 05:40 Dose: 5 ml Losartan Potassium (Cozaar) 50 mg PO DAILY [facility] Metoprolol Tartrate (Lopressor) 25 mg PO BID [facility] Oxycodone HCl (Oxycodone Immediate Release Tab) 30 mg PO TID PRN PRN Reason: Pain, severe (8-10) Last Admin: 06/14/17 05:39 Dose: 30 mg Pantoprazole Sodium (Protonix Ec Tab) 40 mg PO 0600 [facility] Last Admin: 06/13/17 05:22 Dose: 40 mg Zolpidem Tartrate (Ambien) 10 mg PO HS [facility] PRN Reason: Protocol Last Admin: 06/13/17 22:21 Dose: 10 mg - Labs Labs: 06/13/17 06:40 06/13/17 06:40 PT 14.8 SECONDS (9.4-12.5) H 06/11/17 22:50 INR 1.29 (0.93-1.08) H 06/11/17 22:50 APTT 35.1 Seconds (25.1-36.5) 06/11/17 22:50 - Constitutional Appears: No Acute Distress, Chronically Ill - Eye Exam Pupil Exam: PERRL - Neurological Exam Neurological Exam: Alert, Awake, Oriented x3 Neuro motor strength exam: Left Upper Extremity: 5, Right Upper Extremity: 5, Left Lower Extremity: 5, Right Lower Extremity: 3 (hx. of old ankle fracture) Additional comments: She is able to answer questions appropriately and follow commands. Sensation remains intact. Assessment and Plan (1) Transient ischemic attack (TIA) Assessment & Plan: Case discussed with Dr. Fox, continue all current medical, physical, occupational, and speech therapies. Pending echocardiogram result. Status: Acute (2) Head ache Assessment & Plan: Case discussed with Dr. Fox, recommend Magnesium 2 gm IVPB for one dose and decadron 10 mg IVPB for one dose.If the headache worsen to do a stat CT of the head without contrast. Status: Acute
[2017-06-14] MEDS ORDERED: Magnesium Sulfate 2 GM in Sodium Chloride 0.9% 100 ML IVPB ONE (07:14)
[2017-06-14 07:53] VITALS: BP 103/65; TEMP 98.4; O2SAT 99
[2017-06-14 07:55] LABS: HEMOGLOBIN 8.9 g/dL (12.0-16.0); MEAN CELL VOLUME 95.9 fl (80.0-105.0); MEAN CORPUSCULAR HEMOGLOBIN 30.7 pg (25.0-35.0); MEAN PLATELET VOLUME 10.2 fl (7.0-11.0); RBC 2.9 10^6/uL (3.5-6.1); RED CELL DISTRIBUTION WIDTH 14.7 % (11.5-14.5); WHITE BLOOD COUNT 6.8 10^3/ul (4.5-11.0)
[2017-06-14 08:11] LABS: BLOOD UREA NITROGEN 20 mg/dL (7-21); CALCIUM 9.4 mg/dL (8.4-10.5); GFR AFRICAN-AMERICAN > 60; GFR NON-AFRICAN AMERICAN > 60
[2017-06-14 10:31] VITALS: PULSE 90
--- NOTE | 2017-06-14 11:55 | CP.PCM.DIS ---
<Shlomo Thomas - Last Filed: 06/14/17 12:25> Provider - Provider Date of Admission: 06/12/17 00:50 Attending physician: Chilo Sherman MD Primary care physician: Orestes Ho MD Consults: Neuro: Fox Time Spent in preparation of Discharge (in minutes): 45 Hospital Course - Lab Results Lab Results: Most Recent Lab Values WBC 6.8 10^3/ul (4.5-11.0) 06/14/17 06:30 RBC 2.90 10^6/uL (3.5-6.1) L 06/14/17 06:30 Hgb 8.9 g/dL (12.0-16.0) L 06/14/17 06:30 Hct 27.8 % (36.0-48.0) L 06/14/17 06:30 MCV 95.9 fl (80.0-105.0) 06/14/17 06:30 MCH 30.7 pg (25.0-35.0) 06/14/17 06:30 MCHC 32.0 g/dl (31.0-37.0) 06/14/17 06:30 RDW 14.7 % (11.5-14.5) H 06/14/17 06:30 Plt Count 230 10^3/uL (120.0-450.0) 06/14/17 06:30 MPV 10.2 fl (7.0-11.0) 06/14/17 06:30 Gran % 69.4 % (50.0-68.0) H 06/13/17 06:40 Lymph % (Auto) 22.2 % (22.0-35.0) 06/13/17 06:40 [place] % (Auto) 7.8 % (1.0-6.0) H 06/13/17 06:40 Eos % (Auto) 0.5 % (1.5-5.0) L 06/13/17 06:40 Baso % (Auto) 0.1 % (0.0-3.0) 06/13/17 06:40 Gran # 5.26 (1.4-6.5) 06/13/17 06:40 Lymph # 1.7 (1.2-3.4) 06/13/17 06:40 [place] # 0.6 (0.1-0.6) 06/13/17 06:40 Eos # 0.0 (0.0-0.7) 06/13/17 06:40 Baso # 0.01 K/mm3 (0.0-2.0) 06/13/17 06:40 ESR 24 mm/hr (0.0-20.0) H 06/12/17 07:30 PT 14.8 SECONDS (9.4-12.5) H 06/11/17 22:50 INR 1.29 (0.93-1.08) H 06/11/17 22:50 APTT 35.1 Seconds (25.1-36.5) 06/11/17 22:50 Sodium 140 mmol/L (132-148) 06/14/17 06:30 Potassium 4.1 mmol/L (3.6-5.0) 06/14/17 06:30 Chloride 111 mmol/L (98-107) H 06/14/17 06:30 Carbon Dioxide 21 mmol/L (21-33) 06/14/17 06:30 Anion Gap 13 (10-20) 06/14/17 06:30 BUN 20 mg/dL (7-21) 06/14/17 06:30 Creatinine 0.8 mg/dl (0.7-1.2) 06/14/17 06:30 Est GFR ( Amer) > 60 06/14/17 06:30 Est GFR (Non-Af Amer) > 60 06/14/17 06:30 POC Glucose (mg/dL) 84 mg/dL (65-110) 06/14/17 07:10 Random Glucose 80 mg/dL (70-110) 06/14/17 06:30 Hemoglobin A1c 5.0 % (4.2-6.5) 06/12/17 07:30 Calcium 9.4 mg/dL (8.4-10.5) 06/14/17 06:30 Total Bilirubin 0.5 mg/dL (0.2-1.3) 06/13/17 06:40 AST 33 U/L (14-36) 06/13/17 06:40 ALT 51 U/L (7-56) 06/13/17 06:40 Alkaline Phosphatase 85 U/L (38-126) 06/13/17 06:40 Troponin I < 0.01 ng/mL 06/11/17 22:33 NT-Pro-B Natriuret Pep 142 pg/mL (0-450) 06/11/17 22:33 Total Protein 6.2 g/dL (5.8-8.3) 06/13/17 06:40 Albumin 3.2 g/dL (3.0-4.8) 06/13/17 06:40 Globulin 3.0 gm/dL 06/13/17 06:40 Albumin/Globulin Ratio 1.0 (1.1-1.8) L 06/13/17 06:40 Triglycerides 83 mg/dL (35-160) 06/12/17 07:10 Cholesterol 131 mg/dL (130-200) 06/12/17 07:10 LDL Cholesterol Direct 41 mg/dL (0-129) 06/12/17 07:10 HDL Cholesterol 59 mg/dL (29-60) 06/12/17 07:10 Blood Type A POSITIVE 06/11/17 22:50 Antibody Screen Negative 06/11/17 22:50 BBK History Checked Patient has bt 06/11/17 22:50 - Hospital Course Hospital Course: Mrs. 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 Patient reported that although she has not noticed any speech changes, she had been told by her friends that she had been slurring her words. Patient is noted to have residual speech deficits from previous CVA for which she sees speech therapy. At her scheduled speech therapy appointment on day of admission, she was told by her therapist that she should seek emergency care for acute speech changes as this could indicate a CVA and this prompted patient to come in to the ED. In the ED, CT of her head without contrast that showed no acute intracranial abnormalities and had no significant abnormalities on a CBC, CMP, and coagulation studies. Pt was admitted for evaluation and treatment for possible TIA. Neuro was consulted , recommendations were appreciated. Brain MRI, Head MRA, Neck MRA, and carotid doppler were negative. Echocardiogram showed normal LVEF. Magnesium and decadron were given for headache. ASA was started. Pt H/H was stable during admission, but was given IV venofer due to symptomatic anemia from chronic disease. Pt's comordities were managed. Pt BP medications were held as pt was normotensive, borderline hypotensive. Today, patient was seen and examined at bedside. Pt symptoms had resolved. Work up for stroke was negative. As patient symptoms had resolved and she was medically stable, patient was discharged. Pt was advised to follow up with her primary care doctor upon discharge for further medical management and monitoring. Pt advised to hold BP medications until follow up with PMD in 1 week as BP was borderline low. Discharge Diagnosis 1. TIA 2. Protein C Deficiency 3. Hypertension 4. History of Atrial Fibrillation 5. Anemia of Chronic Disease Discharge Medications - Pt will continue home medications per MAR - Hold BP medications until follow up with PMD Discharge Exam - Head Exam Head Exam: NORMAL INSPECTION - Eye Exam Eye Exam: Normal appearance - ENT Exam ENT Exam: Normal Exam - Neck Exam Neck exam: Normal Inspection - Respiratory Exam Respiratory Exam: Clear to PA & Lateral. absent: Accessory Muscle Use, Rales, Rhonchi, Wheezes, Respiratory Distress - Cardiovascular Exam Cardiovascular Exam: RRR, +S1, +S2. absent: Diastolic murmur, Gallop, Rubs, Systolic Murmur - GI/Abdominal Exam GI & Abdominal Exam: Soft. absent: Distended, Guarding, Rigid, Tenderness - Extremities Exam Extremities exam: normal inspection - Back Exam Back exam: NORMAL INSPECTION - Neurological Exam Neurological exam: Alert, Oriented x3 - Psychiatric Exam Psychiatric exam: Normal Affect, Normal Mood - Skin Skin Exam: Dry, Intact, Normal Color, Warm Discharge Plan - Follow Up Plan Condition: FAIR Disposition: HOME/ ROUTINE Instructions: Transient Ischemic Attack (DC), Transient Ischemic Attack (GEN), Back Pain (GEN), Stroke (DC), Stroke (GEN) Additional Instructions: PLEASE FOLLOW UP WITH YOUR DOCTOR WITHIN 1 WEEK. TAKE ALL MEDICATIONS PRESCRIBED. HOLD BLOOD PRESSURE MEDICATIONS UNTIL FOLLOW UP WITH PMD. IF SYMPTOMS PERSIST AND/OR WORSEN, GO TO THE ER. Referrals: Orestes Ho MD [Primary Care Provider] - <Chilo Sherman - Last Filed: 06/14/17 14:09> Provider - Provider Date of Admission: 06/12/17 00:50 Attending physician: Chilo Sherman MD Primary care physician: Orestes Ho MD [facility] Course - Lab Results Lab Results: Most Recent Lab Values WBC 6.8 10^3/ul (4.5-11.0) 06/14/17 06:30 RBC 2.90 10^6/uL (3.5-6.1) L 06/14/17 06:30 Hgb 8.9 g/dL (12.0-16.0) L 06/14/17 06:30 Hct 27.8 % (36.0-48.0) L 06/14/17 06:30 MCV 95.9 fl (80.0-105.0) 06/14/17 06:30 MCH 30.7 pg (25.0-35.0) 06/14/17 06:30 MCHC 32.0 g/dl (31.0-37.0) 06/14/17 06:30 RDW 14.7 % (11.5-14.5) H 06/14/17 06:30 Plt Count 230 10^3/uL (120.0-450.0) 06/14/17 06:30 MPV 10.2 fl (7.0-11.0) 06/14/17 06:30 Gran % 69.4 % (50.0-68.0) H 06/13/17 06:40 Lymph % (Auto) 22.2 % (22.0-35.0) 06/13/17 06:40 [place] % (Auto) 7.8 % (1.0-6.0) H 06/13/17 06:40 Eos % (Auto) 0.5 % (1.5-5.0) L 06/13/17 06:40 Baso % (Auto) 0.1 % (0.0-3.0) 06/13/17 06:40 Gran # 5.26 (1.4-6.5) 06/13/17 06:40 Lymph # 1.7 (1.2-3.4) 06/13/17 06:40 [place] # 0.6 (0.1-0.6) 06/13/17 06:40 Eos # 0.0 (0.0-0.7) 06/13/17 06:40 Baso # 0.01 K/mm3 (0.0-2.0) 06/13/17 06:40 ESR 24 mm/hr (0.0-20.0) H 06/12/17 07:30 PT 14.8 SECONDS (9.4-12.5) H 06/11/17 22:50 INR 1.29 (0.93-1.08) H 06/11/17 22:50 APTT 35.1 Seconds (25.1-36.5) 06/11/17 22:50 Sodium 140 mmol/L (132-148) 06/14/17 06:30 Potassium 4.1 mmol/L (3.6-5.0) 06/14/17 06:30 Chloride 111 mmol/L (98-107) H 06/14/17 06:30 Carbon Dioxide 21 mmol/L (21-33) 06/14/17 06:30 Anion Gap 13 (10-20) 06/14/17 06:30 BUN 20 mg/dL (7-21) 06/14/17 06:30 Creatinine 0.8 mg/dl (0.7-1.2) 06/14/17 06:30 Est GFR ( Amer) > 60 06/14/17 06:30 Est GFR (Non-Af Amer) > 60 06/14/17 06:30 POC Glucose (mg/dL) 112 mg/dL (65-110) H 06/14/17 13:06 Random Glucose 80 mg/dL (70-110) 06/14/17 06:30 Hemoglobin A1c 5.0 % (4.2-6.5) 06/12/17 07:30 Calcium 9.4 mg/dL (8.4-10.5) 06/14/17 06:30 Total Bilirubin 0.5 mg/dL (0.2-1.3) 06/13/17 06:40 AST 33 U/L (14-36) 06/13/17 06:40 ALT 51 U/L (7-56) 06/13/17 06:40 Alkaline Phosphatase 85 U/L (38-126) 06/13/17 06:40 Troponin I < 0.01 ng/mL 06/11/17 22:33 NT-Pro-B Natriuret Pep 142 pg/mL (0-450) 06/11/17 22:33 Total Protein 6.2 g/dL (5.8-8.3) 06/13/17 06:40 Albumin 3.2 g/dL (3.0-4.8) 06/13/17 06:40 Globulin 3.0 gm/dL 06/13/17 06:40 Albumin/Globulin Ratio 1.0 (1.1-1.8) L 06/13/17 06:40 Triglycerides 83 mg/dL (35-160) 06/12/17 07:10 Cholesterol 131 mg/dL (130-200) 06/12/17 07:10 LDL Cholesterol Direct 41 mg/dL (0-129) 06/12/17 07:10 HDL Cholesterol 59 mg/dL (29-60) 06/12/17 07:10 Blood Type A POSITIVE 06/11/17 22:50 Antibody Screen Negative 06/11/17 22:50 BBK History Checked Patient has bt 06/11/17 22:50 Attending/Attestation - Attestation I have personally seen and examined this patient.: Yes I have fully participated in the care of the patient.: Yes I have reviewed all pertinent clinical information, including history, physical exam and plan: Yes Notes (Text): 06/14/17 14:09 Attending note; Patient seen and examined with resident . 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 Admitted to rule out TIA. Neurology evaluation appreciated. MRI/ MRA negative. dizziness and generalized weakness; due to anemia. Got 2 doses of IV venofer. Patient had extensive workup for anemia as outpatient. Follows up with hematology as outpatient. Discharge home today. Follow-up with outpatient physical therapy. Upon discharge the patient will follow-up with PMD DR. Ho.
== END 2017-06-14 15:22 | disposition home or self-care (01) ==
LOC: ED 20:24 → ERH 06-12 00:50 → 3RNO 06-12 15:28
PROVIDERS: ADMIT Internal Medicine; ATTEND Internal Medicine
DX: G45.9 Transient cerebral ischemic attack, unspecified (principal); D68.59 Other primary thrombophilia; D63.8 Anemia in other chronic diseases classified elsewhere; I10 Essential (primary) hypertension; I48.91 Unspecified atrial fibrillation; J45.909 Unspecified asthma, uncomplicated; I69.928 Other speech and language deficits following unspecified cerebrovascular disease; E78.5 Hyperlipidemia, unspecified; R29.701 NIHSS score 1; Z90.13 Acquired absence of bilateral breasts and nipples; Z86.718 Personal history of other venous thrombosis and embolism; Z88.6 Allergy status to analgesic agent; Z88.0 Allergy status to penicillin; Z98.84 Bariatric surgery status; Z89.022 Acquired absence of left finger(s); Z89.021 Acquired absence of right finger(s)
CPT/HCPCS: 36415; 70450; 70544; 70547; 70551; 71045; 80048; 80053; 80061; 82948; 83036; 83880; 84484; 85025; 85027; 85610; 85651; 85730; 86850; 86900; 92523; 93005; 93306; 93882; 95812; 97161; 99285; G0378; G8978; G8979; G9162; G9163; G9164; J1100; J1756; J3475; J7040

== ENCOUNTER 2017-07-28 09:51 | Inpatient (IN) | payer MEDICARE, OTHER ==
[2017-07-28 09:51] VITALS: BMI 31.0
--- NOTE | 2017-07-28 10:26 | ED PDOC ---
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 Pt states that she was doing house work yesterday when she became short of breath with nonproductive coughing. Pt tried using her inhaler and resting, but that provided minimal relief. Pt denies any recent sick contacts. Pt also complained of lower abdominal pain and has not been able to urinate over the last day, as well as dizziness for a few days one week ago. Of note, patient was admitted recently for dizziness, which was likely due to symptomatic anemia. Pt denies CP, n/v/d, fever, chills, MURILLO, dysuria, fatigue, or near syncopal events. PMD: [place] Past Medical History - Provider Review Nursing Documentation Reviewed: Yes - Infectious Disease Hx of Infectious Diseases: None - Tetanus Immunization Tetanus Immunization: Unknown - Reproductive Menopause: Yes - Cardiac Hx Cardiac Disorders: Yes Hx Hypertension: Yes - Pulmonary Hx Respiratory Disorders: Yes Hx Asthma: Yes - Neurological Hx Neurological Disorder: Yes HX Cerebrovascular Accident: Yes Hx Transient Ischemic Attacks (TIA): Yes - HEENT Hx HEENT Disorder: No - Renal Hx Renal Failure: Yes - Endocrine/Metabolic Hx Endocrine Disorders: No - Hematological/Oncological Hx Blood Disorders: No - Integumentary Hx Dermatological Disorder: Yes Other/Comment: 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 - Musculoskeletal/Rheumatological Hx Arthritis: Yes - Gastrointestinal Hx Gastrointestinal Disorders: Yes Hx Gall Bladder Disease: Yes Other/Comment: Gastric Bypass Surgery - Genitourinary/Gynecological Hx Genitourinary Disorders: Yes Hx Urinary Tract Infection: Yes - Psychiatric Hx Psychophysiologic Disorder: No Hx Substance Use: No - Past Surgical History Past Surgical History: Non-Contributing - Surgical History Hx Gastric Bypass Surgery: Yes Hx Hysterectomy: Yes Hx Mastectomy: Yes (B/L Mastectomy) Other/Comment: b/l middle fingers amputated - Anesthesia Hx Anesthesia: Yes Hx Anesthesia Reactions: No Hx Malignant Hyperthermia: No - Suicidal Assessment Feels Threatened In Home Enviroment: No Family/Social History - Physician Review Nursing Documentation Reviewed: Yes Family/Social History: Other (noncontributory) Smoking Status: Never Smoked Hx Alcohol Use: No Hx Substance Use: No Hx Substance Use Treatment: No Allergies/Home Meds Allergies/Adverse Reactions: Allergies Penicillins Allergy (Verified 07/28/17 09:57) ANGIOEDEMA/SHORTNESS OF BREATH ANGIOEDEMA SHORTNESS OF BREATH Home Medications: Home Meds Medication Instructions Recorded Confirmed Apixaban [Eliquis] 5 mg PO BID 03/26/17 07/28/17 Furosemide [Lasix] 40 mg PO DAILY 03/26/17 07/28/17 Gabapentin [Neurontin] 400 mg PO TID 03/26/17 07/28/17 Metoprolol Tartrate [Lopressor] 25 mg PO BID 03/26/17 07/28/17 Pantoprazole Sodium [Protonix] 40 mg PO BID 03/26/17 07/28/17 Valsartan [Diovan] 80 mg PO DAILY 03/26/17 07/28/17 Zolpidem [Ambien] 10 mg PO HS 03/26/17 07/28/17 oxyCODONE [oxyCODONE Immediate 30 mg PO TID 03/26/17 07/28/17 Release Tab] Cholecalciferol [Vitamin D 1000 IU] 50,000 unit PO QWK 06/12/17 07/28/17 Potassium Chloride [K-Dur 20 mEq 10 meq PO BID 06/12/17 07/28/17 ER Tab] Review of Systems - Physician Review All systems were reviewed & negative as marked: Yes - Review of Systems Constitutional: Fatigue, Fevers Eyes: Normal ENT: Normal Respiratory: SOB, Cough. absent: Sputum, Wheezing Cardiovascular: Normal. absent: Chest Pain, Palpitations Gastrointestinal: Abdominal Pain (lower). absent: Stool Changes, Constipation, Diarrhea, Nausea, Vomiting Genitourinary Female: Normal Musculoskeletal: Normal Skin: Normal Neurological: Normal Endocrine: Normal Hemo/Lymphatic: Normal Psychiatric: Normal Physical Exam Vital Signs Reviewed: Yes Vital Signs Temp Pulse Resp BP Pulse Ox 07/28/17 14:38 98.9 F 07/28/17 13:44 111 H 21 107/54 L 95 07/28/17 11:05 20 07/28/17 10:00 101.9 F H 118 H 20 114/63 94 L Temperature: Febrile Blood Pressure: Normal Pulse: Tachycardic Respiratory Rate: Tachypneic Appearance: Positive for: Uncomfortable Pain Distress: Mild Mental Status: Positive for: Alert and Oriented X 3 - Systems Exam Head: Present: Atraumatic, Normocephalic Pupils: Present: PERRL Extroacular Muscles: Present: EOMI Conjunctiva: Present: Other (pallor) Ears: Present: Normal Mouth: Present: Dry Pharnyx: Present: ERYTHEMA, EXUDATE, TONSILS ENLARGED. No: Peritonsilar Swelling, Uvular Deviation, Muffled/Hoarse Voice Nose (Internal): Present: Normal Inspection Neck: Present: Normal Range of Motion Respiratory/Chest: Present: Wheezes. No: Respiratory Distress, Accessory Muscle Use, Rales, Rhonchi Cardiovascular: Present: Normal S1, S2, Tachycardic. No: Murmurs, Rub, Gallop Abdomen: Present: Tenderness (lower abdomen). No: Distention, Peritoneal Signs , Rebound, Guarding Upper Extremity: Present: Normal Inspection Lower Extremity: Present: Normal Inspection Neurological: Present: GCS=15, CN II-XII Intact Skin: Present: Warm, Dry, Normal Color Medical Decision Making ED Course and Treatment: 07/28/17 10:38 Assessment: 62 yo F presents to ED with dyspnea and nonproductive cough. Plan: - Labs - Cardiac Enzyme - EKG - CXR - VBG - Blood cultures - Influenza - Bladder scan - 500 cc NS bolus - Duoneb EKG showed sinus tachycardia, rate 119. 07/28/17 12:06 CXR showed trace linear atelectasis in the right lung base. No infiltrate or pleural effusion bilaterally. Cardiomegaly. Bladder scan showed 373 ml. UA and urine culture ordered. 07/28/17 13:38 600 cc urine per straight cath. 07/28/17 15:[address] Benz, agrees with plan and accepts patient under hospitalist service. - Lab Interpretations Lab Results: 07/28/17 11:05 07/28/17 11:05 Lab Results 07/28/17 13:32: Urine Color Yellow, Urine Appearance Clear, Urine pH 6.0, Ur Specific [place] 1.010, Urine Protein Negative, Urine Glucose (UA) Negative, Urine Ketones Trace H, Urine Blood Negative, Urine Nitrate Negative, Urine Bilirubin Negative, Urine Urobilinogen 0.2, Ur Leukocyte Esterase Trace H, Urine RBC 0 - 2, Urine WBC 0 - 2, Ur Epithelial Cells 0 - 2, Calcium Oxalate Crystal Occ, Urine Bacteria Few 07/28/17 12:05: pCO2 36, pO2 73.0 L, HCO3 17.7 L, ABG pH 7.30 L, ABG Total CO2 18.8 L, ABG O2 Saturation 96.8, ABG Base Excess -7.9 L, ABG Potassium 3.3 L, Glucose 88, Lactate 1.5, FiO2 21.0, Sodium 136.0, Chloride 110.0 H, Arterial Blood Potassium 3.3 L 07/28/17 11:54: Grp A Beta Strep Ag Negative 07/28/17 11:10: pO2 32, VBG pH 7.18 L*, VBG pCO2 59.0, VBG HCO3 22.0, VBG Total CO2 23.8, VBG O2 Sat (Calc) 71.4 H, VBG Base Excess -7.1 L, VBG Potassium 3.8, Glucose 95, Lactate 1.8, FiO2 21.0, Sodium 136.0, Chloride 106.0, Venous Blood Potassium 3.8 07/28/17 11:05: PT 14.0 H, INR 1.21 H, APTT 31.4 07/28/17 11:05: Sodium 138, Potassium 3.9, Chloride 104, Carbon Dioxide 23, Anion Gap 15, BUN 23 H, Creatinine 2.4 H, Est GFR ( Amer) 25, Est GFR ( Non-Af Amer) 20, Random Glucose 89, Calcium 9.6, Magnesium 2.1, Total Bilirubin 0.5, AST 189 H D, ALT 80 H, Alkaline Phosphatase 93, Lactate Dehydrogenase 867 H , Total Creatine Kinase 72, Troponin I < 0.01, Total Protein 7.7, Albumin 4.2, Globulin 3.6, Albumin/Globulin Ratio 1.2 07/28/17 11:05: WBC 6.3, RBC 3.80, Hgb 11.7 L D, Hct 37.6, MCV 98.9 D, MCH 30.8 , MCHC 31.1, RDW 14.2, Plt Count 155, MPV 9.9, Gran % 67.5, Lymph % (Auto) 25.0 , [place] % (Auto) 6.0, Eos % (Auto) 1.3 L, Baso % (Auto) 0.2, Gran # 4.26, Lymph # (Auto) 1.6, [place] # (Auto) 0.4, Eos # (Auto) 0.1, Baso # (Auto) 0.01 07/28/17 11:00: Influenza Typ A,B (EIA) Negative for flu a/b - RAD Interpretation Radiology Orders: 07/28/17 10:15 CHEST PORTABLE [RAD] Stat - Medication Orders Current Medication Orders: Apixaban (Eliquis) 5 mg PO Q12 ALEXI PRN Reason: Protocol Ergocalciferol (Drisdol 50,000 Intl Units Cap) 1 cap PO Q7D ALEXI Gabapentin (Neurontin) 400 mg PO Q8 ALEXI PRN Reason: Protocol Sodium Chloride (Sodium Chloride 0.9%) 1,000 mls @ 100 mls/hr IV .Q10H ALEXI Azithromycin (Zithromax 500mg In Ns) 500 mg in 250 mls @ 167 mls/hr IVPB DAILY ALEXI PRN Reason: Protocol Losartan Potassium (Cozaar) 50 mg PO DAILY ALEXI Metoprolol Tartrate (Lopressor) 25 mg PO BID ALEXI Pantoprazole Sodium (Protonix Ec Tab) 40 mg PO BID ALEXI Potassium Chloride (Klor-Con 10) 10 meq PO BID ALEXI Stop: 07/29/17 10:01 Zolpidem Tartrate (Ambien) 5 mg PO HS ALEXI PRN Reason: Protocol Discontinued Medications Albuterol/Ipratropium (Duoneb 3 Mg/0.5 Mg (3 Ml) Ud) 3 ml IH STAT STA Stop: 07/28/17 10:15 Last Admin: 07/28/17 10:41 Dose: Sodium Chloride (Sodium Chloride 0.9%) 500 mls @ 999 mls/hr IV .Q31M STA Stop: 07/28/17 11:02 Last Admin: 07/28/17 10:40 Dose: 999 mls/hr eMAR Start Stop Document 07/28/17 10:40 OCS (Rec: 07/28/17 10:41 OCS [id number]) Intravenous Solution Start Date 07/28/17 Start Time 10:41 End Date 07/28/17 End time 11:11 Total Infusion Time 30 Disposition/Present on Arrival - Present on Arrival Any Indicators Present on Arrival: Yes History of DVT/PE: No History of Uncontrolled Diabetes: No Urinary Catheter: No History of Decub. Ulcer: No History Surgical Site Infection Following: None - Disposition Have Diagnosis and Disposition been Completed?: Yes Diagnosis: JOSEFINA (acute kidney injury), Viral illness Disposition Time: 16:29 Patient Plan: Admission, Observation Condition: FAIR
[2017-07-28] MEDS ORDERED: Sodium Chloride 0.9% 500 ML IV STA (10:32)
[2017-07-28] MEDS: Albuterol-Ipratrop 3 mg / 0.5 (3 ml) UD IH STA ×2 (10:41)
[2017-07-28 11:17] LABS: VENOUS BLOOD GAS BASE EXCESS -7.1 mmol/L (0.0-2.0); VENOUS BLOOD GAS PO2 32 mm/Hg (30-55)
[2017-07-28 11:19] LABS: VENOUS BLOOD PH 7.18 (7.32-7.43)
[2017-07-28 11:24] LABS: INR 1.21 (0.93-1.08); PARTIAL THROMBOPLASTIN TIME 31.4 Seconds (25.1-36.5)
[2017-07-28 11:25] LABS: ALB/GLOB RATIO 1.2 (1.1-1.8); ALBUMIN 4.2 g/dL (3.0-4.8); ALT/SGPT 80 U/L (7-56); AST/SGOT 189 U/L (14-36); BASO # 0.01 K/mm3 (0.0-2.0); BASO % 0.2 % (0.0-3.0); BLOOD UREA NITROGEN 23 mg/dL (7-21); CALCIUM 9.6 mg/dL (8.4-10.5); EOS # 0.1 (0.0-0.7); EOS % 1.3 % (1.5-5.0); GFR AFRICAN-AMERICAN 25; GFR NON-AFRICAN AMERICAN 20; GRAN # 4.26 (1.4-6.5); GRAN % 67.5 % (50.0-68.0); HEMOGLOBIN 11.7 g/dL (12.0-16.0); LYMPH # 1.6 (1.2-3.4); MAGNESIUM 2.1 mg/dL (1.7-2.2); MEAN CELL VOLUME 98.9 fl (80.0-105.0); MEAN CORPUSCULAR HEMOGLOBIN 30.8 pg (25.0-35.0); MEAN CORPUSCULAR HGB CONC 31.1 g/dl (31.0-37.0); MEAN PLATELET VOLUME 9.9 fl (7.0-11.0); MONO # 0.4 (0.1-0.6); RBC 3.8 10^6/uL (3.5-6.1); RED CELL DISTRIBUTION WIDTH 14.2 % (11.5-14.5); WHITE BLOOD COUNT 6.3 10^3/ul (4.5-11.0)
[2017-07-28 11:36] LABS: TROPONIN I < 0.01 ng/mL
--- NOTE | 2017-07-28 12:00 | RAD ---
HISTORY: dyspnea COMPARISON: Portable chest 06/11/2017. FINDINGS: LUNGS: No acute infiltrate bilaterally. Trace linear atelectasis right base. PLEURA: No significant pleural effusion identified, no pneumothorax apparent. CARDIOVASCULAR: Normal. OSSEOUS STRUCTURES: No significant abnormalities. VISUALIZED UPPER ABDOMEN: Normal. OTHER FINDINGS: None. IMPRESSION: Trace linear atelectasis right base. No acute infiltrate or pleural effusion bilaterally. Cardiomediastinal silhouette stable.
[2017-07-28 12:16] LABS: ARTERIAL BLOOD GAS HCO3 17.7 mmol/L (21-28); ARTERIAL BLOOD GAS O2 SAT 96.8 % (95-98); ARTERIAL BLOOD GAS PCO2 36 mm/Hg (35-45); ARTERIAL BLOOD GAS TCO2 18.8 mmol.L (22-28)
--- NOTE | 2017-07-28 12:30 | CARD ---
APPROVED REPORT EKG Measurement Heart [id number] <Conclusion> Sinus tachycardia Possible Anterior infarct, age undetermined Abnormal ECG
[2017-07-28 13:53] LABS: URINE BILIRUBIN NEGATIVE (NEGATIVE); URINE BLOOD NEGATIVE (NEGATIVE); URINE GLUCOSE (UA) NEGATIVE (NEGATIVE); URINE LEUKOCYTE ESTERASE TRACE Leu/uL (NEGATIVE); URINE NITRATE NEGATIVE (NEGATIVE); URINE PROTEIN NEGATIVE mg/dL (<30 mg/dL); URINE UROBILINOGEN 0.2 E.U./dL (<1 E.U./dL)
[2017-07-28 14:12] LABS: URINE APPEARANCE CLEAR (CLEAR); URINE COLOR YELLOW (YELLOW)
[2017-07-28 14:16] LABS: URINE RBC 0 - 2 /hpf (0-2); URINE WBC 0 - 2 /hpf (0-6)
[2017-07-28 14:17] LABS: URINE BACTERIA FEW (NEG); URINE CALCIUM OXALATE CRYSTALS OCC /hpf; URINE EPITHELIAL CELLS 0 - 2 /hpf (0-5)
[2017-07-28] MEDS ORDERED: Sodium Chloride 0.9% 1,000 ML IV SCH (16:00)
--- NOTE | 2017-07-28 16:02 | CP.PCM.HP ---
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 Pt states that she was doing house work yesterday when she became short of breath with nonproductive coughing. She states she did not think much of it at first. She then stated around 4 am in the morning she was awoken from sleep with a cough and felt that she was unable to catch her breath. She took her inhaler with come relief. She states the cough now is slightly productive with some small streaks of blood and she feels pain in her chest when she coughs along with a sore throat. She denies any recent travel but says she [place] [facility] [place] at the [place]. Pt also complained of lower abdominal pain and has not been able to urinate over the last day. She states she has the urge to urinate but she was not able to start a stream. Pt denies CP , n/v/d, fever, chills, MURILLO, dysuria, fatigue, or any other complaints at this time. 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 Mom: Breast Ca, Dad: metastatic cancer, unknown Social History: Denies tobacco, alcohol or illicit drug use; ambulates with cane Allergies: Penicillins Meds: As per JUL PMD: Dr. Ho Oncology: Dr. Zendejas Present on Admission - Present on Admission Any Indicators Present on Admission: No Review of Systems - Constitutional Constitutional: absent: Chills, Fever, Headache, Night Sweats - EENT Nose/Mouth/Throat: Sinus Pressure, Sore Throat. absent: Nasal Congestion, Nasal Discharge - Cardiovascular Cardiovascular: Dyspnea. absent: Chest Pain - Respiratory Respiratory: Cough, Dyspnea, Change in Mucous Color - Gastrointestinal Gastrointestinal: absent: Abdominal Pain, Constipation, Diarrhea, Nausea, Vomiting - Genitourinary Genitourinary: Difficulty Urinating. absent: Flank Pain, Hematuria, Urinary Frequency, Urinary Urgency - Musculoskeletal Musculoskeletal: absent: Numbness, Tingling - Neurological Neurological: absent: Dizziness, Syncope, Weakness Past Patient History - Infectious Disease Hx of Infectious Diseases: None - Tetanus Immunizations Tetanus Immunization: Unknown - Past Medical History & Family History Past Medical History?: Yes - Past Social History Smoking Status: Never Smoked - CARDIAC Hx Cardiac Disorders: Yes Hx Hypertension: Yes - PULMONARY Hx Respiratory Disorders: Yes Hx Asthma: Yes - NEUROLOGICAL Hx Neurological Disorder: Yes HX Cerebrovascular Accident: Yes Hx Transient Ischemic Attacks (TIA): Yes - HEENT Hx HEENT Problems: No - RENAL Hx Renal Failure: Yes - ENDOCRINE/METABOLIC Hx Endocrine Disorders: No - HEMATOLOGICAL/ONCOLOGICAL Hx Blood Disorders: No - INTEGUMENTARY Hx Dermatological Problems: Yes Other/Comment: 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 - MUSCULOSKELETAL/RHEUMATOLOGICAL Hx Arthritis: Yes - GASTROINTESTINAL Hx Gastrointestinal Disorders: Yes Hx Gall Bladder Disease: Yes Other/Comment: Gastric Bypass Surgery - GENITOURINARY/GYNECOLOGICAL Hx Genitourinary Disorders: Yes Hx Urinary Tract Infection: Yes - PSYCHIATRIC Hx Psychophysiologic Disorder: No Hx Substance Use: No - SURGICAL HISTORY Hx Gastric Bypass Surgery: Yes Hx Hysterectomy: Yes Hx Mastectomy: Yes (B/L Mastectomy) Other/Comment: b/l middle fingers amputated - ANESTHESIA Hx Anesthesia: Yes Hx Anesthesia Reactions: No Hx Malignant Hyperthermia: No Meds Allergies/Adverse Reactions: Allergies Allergy/AdvReac Type Severity Reaction Status Date / Time Penicillins Allergy ANGIOEDEMA/SHORTNESS Verified 07/28/17 18:24 OF BREATH Physical Exam - Constitutional Appears: Non-toxic, No Acute Distress - Head Exam Head Exam: ATRAUMATIC, NORMAL INSPECTION, NORMOCEPHALIC - Eye Exam Eye Exam: EOMI, Normal appearance, PERRL - ENT Exam ENT Exam: Mucous Membranes Dry - Neck Exam Neck exam: Negative for: Lymphadenopathy - Respiratory Exam Respiratory Exam: Clear to Auscultation Bilateral, NORMAL BREATHING PATTERN. absent: Wheezes - Cardiovascular Exam Cardiovascular Exam: Tachycardia - GI/Abdominal Exam GI & Abdominal Exam: Normal Bowel Sounds. absent: Tenderness - Extremities Exam Extremities exam: Positive for: normal inspection, pedal pulses present. Negative for: pedal edema - Neurological Exam Neurological exam: Alert, Oriented x3 - Skin Skin Exam: Normal Color, Warm Results - Vital Signs Recent Vital Signs: Last Vital Signs Temp 98.9 F 07/28/17 14:38 Pulse 111 H 07/28/17 13:44 Resp 21 07/28/17 13:44 BP 107/54 L 07/28/17 13:44 Pulse Ox 95 07/28/17 13:44 - Labs Result Diagrams: 07/28/17 11:05 07/28/17 11:05 Assessment & Plan - Assessment and Plan (Free Text) Assessment: 62 year old AA female with with PMH of Protein C deficiency, asthma, HLD, HTN, atrial fibrillation, DVT with IVC filter, previous CVA, and warfarin induced necrosis with subsequent b/l mastectomy and bilateral fourth digit amputation presents to ED with 1 day history of shortness of breath and urinary retention. Plan: 1. Pneumonia -EKG shwoing sinus tach, pending official read -rapid flu negative -Started on zithromax -Chest xray: trace linear atelectasis -initial temp 101.9, currenlty afebrile -no leukocytosis -Oxygen as needed -blood, urine, sputum cultures pending -CT chest pending -V/Q scan low probability for PE 2. Urinary Retention with Increased BUN/CR -bladder scan showed 373 ml -patient made 600 ml of urine with malhotra -started on fluids -BUN: 23 Cr: 2.4 -continue to monitor renal function and urine output 3. History of Protein C Deficiency -Continue home eliquis -INR 1.21 4. History of HTN -Continue home meds -Monitor with scheduled VS -Heart Healthy Diet 5. History of Atrial Fibrillation -Continue home eliquis GI Prophylaxis: Protonix DVT Prophylaxis: Eliquis <Ankur Bolivar - Last Filed: 07/28/17 18:53> History of Present Illness - History of Present Illness History of Present Illness: CC: cough, sob, urinary retention Results - Vital Signs Recent Vital Signs: Last Vital Signs Temp 98.2 F 07/28/17 18:02 Pulse 80 07/28/17 18:21 Resp 20 07/28/17 18:02 BP 134/89 07/28/17 18:21 Pulse Ox 100 07/28/17 18:02 - Labs Result Diagrams: 07/28/17 11:05 07/28/17 11:05 Attending/Attestation - Attestation I have personally seen and examined this patient.: Yes I have fully participated in the care of the patient.: Yes I have reviewed all pertinent clinical information: Yes Notes (Text): suspected pneumonia acute bronchitis rule out pe high risk patient rule out acs Acute renal failure urinary retention
[2017-07-28] MEDS ORDERED: oxyCODONE 30 mg Immediate Release Tab PO SCH (18:00)
[2017-07-28] MEDS ORDERED: Pantoprazole 40 mg EC Tab PO SCH (18:00)
--- NOTE | 2017-07-28 18:03 | CT ---
PROCEDURE: CT Chest without contrast HISTORY: PNEUMONIA COMPARISON: Comparison made with chest radiograph dated 07/28/2017 at 1115 hours TECHNIQUE: Contiguous helical/ transaxial images were obtained through the chest without intravenous contrast enhancement. Sagittal and coronal reconstructions were performed. Radiation dose (DLP): 533.78 mGy-cm. This CT exam was performed using one or more of the following dose reduction techniques: Automated exposure control, adjustment of the mA and/or kV according to patient size, and/or use of iterative reconstruction technique. FINDINGS: LUNGS: Minor linear/ curvilinear scarring changes seen in the superior segment right lower lobe extending to the posterior pleural surface. Minimal scarring changes seen in the middle lobe also extending to the pleural surface as well. The Minor linear scarring also seen in the superior aspect left lower lobe extending to the lateral pleural surface as well. MEDIASTINUM: Heart size is within range of normal. No significant pericardial effusion. Ascending thoracic aorta measures approximately 2.9 cm and descending thoracic aorta measures approximately 2.3 cm. . Pulmonary trunk measures approximately 3.1 cm. Rule out underlying mild pulmonary arterial hypertension. . No significant mediastinal adenopathy adenopathy. Evaluation for hilar adenopathy limited due to the lack of circulating intravenous contrast material. Central airways are midline and patent. No large central endoluminal lesions. There is a hiatal hernia with wall thickening of the distal esophagus likely due to protrusion of gastric mucosa. Possibility of esophagitis not excluded. PLEURA: No pleural fluid. No pneumothorax. BONES: Minor multilevel degenerative spondylosis of the thoracic spine. There are no acute compression fractures no retropulsed fragments. UPPER ABDOMEN: Postsurgical changes of the stomach. Clinical correlation with surgical history. Pancreas is slightly atrophic and fatty replaced. Gallbladder is moderately distended. OTHER FINDINGS: None. IMPRESSION: No acute consolidation. No effusion or pneumothorax. Minor linear scarring changes seen in the superior margins of the upper lobes bilaterally as well as right middle lobe.
[2017-07-28] MEDS ORDERED: Levalbuterol 0.63 MG/3 ML Inhal Soln UD IH PRN (18:19)
[2017-07-28] MEDS: Potassium Chloride 10 mEq ER Tab PO SCH (18:21)
[2017-07-28] MEDS ORDERED: Influenza Vaccine 60 mcg/0.5 mL SYR (4YR UP) IM ONE (21:13)
[2017-07-28] MEDS ORDERED: Pneumococcal 23-Valent Vaccine IM ONE (21:13)
[2017-07-29] MEDS ORDERED: oxyCODONE 30 mg Immediate Release Tab PO STA (02:23)
[2017-07-29] MEDS: Pantoprazole 40 mg EC Tab PO SCH ×2 (06:24→19:58)
[2017-07-29 07:39] LABS: BASO # 0.02 K/mm3 (0.0-2.0); BASO % 0.3 % (0.0-3.0); EOS # 0.2 (0.0-0.7); GRAN # 4.39 (1.4-6.5); GRAN % 56.8 % (50.0-68.0); HEMOGLOBIN 9.6 g/dL (12.0-16.0); LYMPH # 2.3 (1.2-3.4); LYMPH % 29.2 % (22.0-35.0); MEAN CELL VOLUME 97.5 fl (80.0-105.0); MEAN CORPUSCULAR HEMOGLOBIN 30.1 pg (25.0-35.0); MEAN CORPUSCULAR HGB CONC 30.9 g/dl (31.0-37.0); MEAN PLATELET VOLUME 9.5 fl (7.0-11.0); MONO # 0.8 (0.1-0.6); MONO % 10.7 % (1.0-6.0); RBC 3.19 10^6/uL (3.5-6.1); RED CELL DISTRIBUTION WIDTH 14.2 % (11.5-14.5); WHITE BLOOD COUNT 7.7 10^3/ul (4.5-11.0)
[2017-07-29 07:52] LABS: ALB/GLOB RATIO 1.1 (1.1-1.8); ALBUMIN 3.3 g/dL (3.0-4.8)
[2017-07-29] MEDS ORDERED: Azithromycin 500MG/NS 250ml 500 MG/250 ML BAG IVPB SCH (10:00)
[2017-07-29] MEDS: Potassium Chloride 10 mEq ER Tab PO SCH (10:06)
--- NOTE | 2017-07-29 11:10 | NM ---
COMPARISON: 07/28/2017 CT thorax and portable chest. 01/25/2016 ventilation-perfusion scan. TECHNIQUE: 34.2 mCi technetium 99-m DTPA aerosol. 3.3 mCI technetium 99-m MAA administered intravenously. FINDINGS: VENTILATION COMPONENT: Normal. PERFUSION COMPONENT: Heterogeneous distribution of radionuclide. No geographic, segmental, lobar abnormalities apparent on the present examination. IMPRESSION: Low probability ventilation perfusion scan for pulmonary embolism. No significant interval change compared to the prior examination(s). Concordant results (preliminary interpretation) provided by [facility]. Procedure Completed: 17:06 Preliminary ([facility]) Report: Dictated and Authenticated: 17:44 Final Interpretation: 11:06 July 29, 2017.
[2017-07-29] MEDS ORDERED: Albuterol-Ipratrop 3 mg / 0.5 (3 ml) UD IH PRN (12:10)
--- NOTE | 2017-07-29 13:16 | CP.PCM.PN ---
<Mariusz Martinez - Last Filed: 07/29/17 13:13> Subjective - Date & Time of Evaluation Date of Evaluation: 07/29/17 Time of Evaluation: 06:00 - Subjective Subjective: Patient seen and evaluated bedside, no acute issues overnight. Patient states cough is getting better, producing very little mucus. Patient also states she urinated at midnight about a cup of urine. States she has slight tenderness in the suprapubic area on the right, improved from yesterday. She also states a slight headache. No additional complaints at this time. Objective - Vital Signs/Intake and Output Vital Signs (last 24 hours): Temp Pulse Resp BP Pulse Ox 98.3 F 76 18 98/56 L 98 07/29/17 00:00 07/29/17 00:00 07/29/17 00:00 07/29/17 00:30 07/29/17 00:00 - Medications Medications: Current Medications Albuterol/Ipratropium (Duoneb 3 Mg/0.5 Mg (3 Ml) Ud) 3 ml IH [id number] ALEXI Albuterol/Ipratropium (Duoneb 3 Mg/0.5 Mg (3 Ml) Ud) 3 ml IH Q2H PRN PRN Reason: Shortness of Breath Apixaban (Eliquis) 5 mg PO Q12 ALEXI PRN Reason: Protocol Last Admin: 07/29/17 10:06 Dose: 5 mg Ergocalciferol (Drisdol 50,000 Intl Units Cap) 1 cap PO Q7D ALEXI Gabapentin (Neurontin) 400 mg PO Q8 ALEXI PRN Reason: Protocol Last Admin: 07/29/17 10:06 Dose: 400 mg Guaifenesin (Robitussin) 100 mg PO Q4H PRN PRN Reason: Cough Sodium Chloride (Sodium Chloride 0.9%) 1,000 mls @ 100 mls/hr IV .Q10H [facility] Last Admin: 07/28/17 18:51 Dose: 100 mls/hr Levofloxacin/Dextrose (Levaquin 750mg) 750 mg in 150 mls @ 100 mls/hr IVPB QOD ALEXI PRN Reason: Protocol Losartan Potassium (Cozaar) 50 mg PO DAILY [facility] Metoprolol Tartrate (Lopressor) 25 mg PO BID [facility] Last Admin: 07/28/17 18:21 Dose: 25 mg Oxycodone HCl (Oxycodone Immediate Release Tab) 30 mg PO TID [facility] Last Admin: 07/28/17 18:22 Dose: 30 mg Pantoprazole Sodium (Protonix Ec Tab) 40 mg PO 0600,1600 [facility] Last Admin: 07/29/17 06:24 Dose: 40 mg Zolpidem Tartrate (Ambien) 5 mg PO HS [facility] PRN Reason: Protocol Last Admin: 07/28/17 23:17 Dose: 5 mg - Labs Labs: PT 14.0 SECONDS (9.4-12.5) H 07/28/17 11:05 INR 1.21 (0.93-1.08) H 07/28/17 11:05 APTT 31.4 Seconds (25.1-36.5) 07/28/17 11:05 - Constitutional Appears: Non-toxic, No Acute Distress - Head Exam Head Exam: ATRAUMATIC, NORMAL INSPECTION, NORMOCEPHALIC - Eye Exam Eye Exam: Normal appearance - ENT Exam ENT Exam: Mucous Membranes Moist - Respiratory Exam Respiratory Exam: Clear to Ausculation Bilateral, NORMAL BREATHING PATTERN - Cardiovascular Exam Cardiovascular Exam: REGULAR RHYTHM - GI/Abdominal Exam GI & Abdominal Exam: Soft, Normal Bowel Sounds. absent: Tenderness - Extremities Exam Extremities Exam: Full ROM. 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 Plan: 1. Bronchitis -rapid flu negative -Continue levaquin -Chest xray: trace linear atelectasis -currently afebrile -no leukocytosis -Oxygen as needed -blood, urine, sputum cultures pending -CT chest no consolidation -V/Q scan low probability for PE -duonebs 2. Urinary Retention with Increased BUN/CR -bladder scan showed 154 cc of urine today -patient had episode of urination at midnght -will monitor -Continue NS -BUN: 29 Cr: 2.2 -Nephro consulted, Stephon, follow recs -continue to monitor renal function and urine output -strict I and Os 3. History of Protein C Deficiency -Continue home eliquis 4. History of HTN -currently hypotensive 98/56 -hold losartan and metroprolol -Monitor with scheduled VS -Heart Healthy Diet 5. History of Atrial Fibrillation -Continue home eliquis <JoseKathe Lew - Last Filed: 07/29/17 13:50> Objective - Vital Signs/Intake and Output Vital Signs (last 24 hours): Temp Pulse Resp BP Pulse Ox 98.3 F 76 18 98/56 L 98 07/29/17 00:00 07/29/17 00:00 07/29/17 00:00 07/29/17 00:30 07/29/17 00:00 - Medications Medications: Current Medications Albuterol/Ipratropium (Duoneb 3 Mg/0.5 Mg (3 Ml) Ud) 3 ml IH [id number] ALEXI Albuterol/Ipratropium (Duoneb 3 Mg/0.5 Mg (3 Ml) Ud) 3 ml IH Q2H PRN PRN Reason: Shortness of Breath Apixaban (Eliquis) 5 mg PO Q12 [facility] PRN Reason: Protocol Last Admin: 07/29/17 10:06 Dose: 5 mg Ergocalciferol (Drisdol 50,000 Intl Units Cap) 1 cap PO Q7D [facility] Gabapentin (Neurontin) 400 mg PO Q8 [facility] PRN Reason: Protocol Last Admin: 07/29/17 10:06 Dose: 400 mg Guaifenesin (Robitussin) 100 mg PO Q4H PRN PRN Reason: Cough Sodium Chloride (Sodium Chloride 0.9%) 1,000 mls @ 100 mls/hr IV .Q10H [facility] Last Admin: 07/28/17 18:51 Dose: 100 mls/hr Levofloxacin/Dextrose (Levaquin 750mg) 750 mg in 150 mls @ 100 mls/hr IVPB QOD [facility] PRN Reason: Protocol Losartan Potassium (Cozaar) 50 mg PO DAILY [facility] Metoprolol Tartrate (Lopressor) 25 mg PO BID [facility] Last Admin: 07/28/17 18:21 Dose: 25 mg Oxycodone HCl (Oxycodone Immediate Release Tab) 30 mg PO TID PRN PRN Reason: Pain, severe (8-10) Pantoprazole Sodium (Protonix Ec Tab) 40 mg PO 0600,1600 [facility] Last Admin: 07/29/17 06:24 Dose: 40 mg Zolpidem Tartrate (Ambien) 5 mg PO HS [facility] PRN Reason: Protocol Last Admin: 07/28/17 23:17 Dose: 5 mg - Labs Labs: PT 14.0 SECONDS (9.4-12.5) H 07/28/17 11:05 INR 1.21 (0.93-1.08) H 07/28/17 11:05 APTT 31.4 Seconds (25.1-36.5) 07/28/17 11:05 Attending/Attestation - Attestation I have personally seen and examined this patient.: Yes I have fully participated in the care of the patient.: Yes I have reviewed all pertinent clinical information, including history, physical exam and plan: Yes Notes (Text): I have seen and examined the patient at bedside. 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 Flu negative. V/Q scan show low probability scan. CT chest revealed no consolidation. Continue duonebs, levaquin and oxygen supplementation. Patient reports urinary retention and found to have JOSEFINA. Creatinine is 2.2. Will order urine lytes. Nephro consult pending. Bedside bladder scan revealed 154 cc of urine. No need for malhotra at this time. Strict Is and Os monitoring ordered. Patient is hypotensive. Continue IVF and hold antihypertensive medication. Continue eliquis for atrial fibrillation. Upon discharge patient will follow up with Dr Cohen. Dr Kathe Garcia
[2017-07-29] MEDS ORDERED: oxyCODONE 30 mg Immediate Release Tab PO PRN (13:18)
[2017-07-29] MEDS: Albuterol-Ipratrop 3 mg / 0.5 (3 ml) UD IH SCH ×2 (13:32→21:05)
[2017-07-29] MEDS: oxyCODONE 30 mg Immediate Release Tab PO PRN ×2 (14:03→23:07)
[2017-07-29] MEDS: levoFLOXacin 750 mg in D5W 750 MG/150 ML BAG IVPB SCH (14:04)
--- NOTE | 2017-07-29 17:08 | CP.PCM.CON ---
History of Present Illness - History of Present Illness History of Present Illness: Nephrology Consultation Note: Assessment: Stable Acute Kidney Injury (N17.9) likely due to prerenal state and low blood pressure Acute bronchitis History of protein C deficiency and DVT and IVC filter History of a care in the past history of rhabdomyolysis in the past Plan No acute need for renal replacement therapy at this time. Hypertension control with meds as ordered. Agree to hold ACEI/ARB due to JOSEFINA Monitor Input/Output, daily weights and renal function with basic metabolic panel Agree with IV fluid as normal saline Will check renal sonogram Doses Levaquin as per her reduced GFR Dose meds/antibiotics for reduced GFR. Avoid fleets enema/magnesium based laxatives. Avoid nephrotoxins/NSAIDs/ iodinated contrast (unless needed emergently) Glycemic control Further work up/management as per primary team Thanks for allowing me to participate in care of your patient. Will follow patient with you. Please call if any Qs. 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 She feels better at this time shortness of breath is better cough is better she also reported some difficulty in urination earlier. Denies OTC/herbal meds or NSAIDs No recent iodinated contrast exposure. noted episodes of low BP. ROS: Cardiovascular: No chest pain. Pulmonary: No shortness of breath . has cough Gastrointestinal: denies abdominal pain No nausea. No vomiting. Genitourinary: No pain while urinating. Denies blood in urine. All other negative except as mentioned in HPI Physical Examination: General Appearance: Comfortable, in no acute respiratory distress, co-operative . She is obese Vitals reviewed and noted as below Head; Atraumatic, normocephalic ENT: no ulcers no thrush. Tongue is midline. Oropharynx: no rash or ulcers. EYES: Pupils are equal, round and reactive to light accommodation. Eye muscles and extraocular movement intact. Sclera is anicteric. Neck; supple no lymphadenopathy, no thyromegaly or bruit Lungs: Normal respiratory rate/effort. Breath sounds bilateral equal and clear Heart: Normal rate. s1s2 normal. No rub or gallop. Extremities: no edema. No varicose veins Neurological: Patient is alert, awake and oriented to person, place and time. No focal deficit. Strength bilateral appropriate and equal Skin: Warm and dry. Normal turgor. No rash. Palpitation: Normal elasticity for age Abdomen: Abdomen is soft. Bowel sounds +. There is no abdominal tenderness, no guarding/rigidity no organomegaly Psych: normal insight and normal affect/mood MSK: no joint tenderness or swelling. Digits and nails normal, no deformity : kidney or bladder not palpable Labs/imaging reviewed. Past medical history, past surgical history, family history, social history, allergy reviewed and noted as below Family hx: no hx of CKD. Rest non-contributory Workup her CPK level is 72 UA shows trace ketone Past Patient History - Infectious Disease Hx of Infectious Diseases: None - Tetanus Immunizations Tetanus Immunization: Unknown - Past Medical History & Family History Past Medical History?: Yes - Past Social History Smoking Status: Never Smoked - CARDIAC Hx Cardiac Disorders: Yes Hx Hypertension: Yes Hx Peripheral Vascular Disease: Yes (DVT) - PULMONARY Hx Respiratory Disorders: Yes Hx Asthma: Yes - NEUROLOGICAL Hx Neurological Disorder: Yes HX Cerebrovascular Accident: Yes Hx Transient Ischemic Attacks (TIA): Yes - HEENT Hx HEENT Problems: Yes Hx Blind: Yes (RIGHT EYE) - RENAL Hx Renal Failure: Yes - ENDOCRINE/METABOLIC Hx Endocrine Disorders: No - HEMATOLOGICAL/ONCOLOGICAL Hx Blood Disorders: Yes (COAGULOPATHY) Hx Anemia: Yes (IRON DEFICIENCY ANEMIA) - INTEGUMENTARY Hx Dermatological Problems: Yes Other/Comment: 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 - MUSCULOSKELETAL/RHEUMATOLOGICAL Hx Musculoskeletal Disorders: Yes (SCIATICA) Hx Arthritis: Yes Hx Back Pain: Yes Hx Falls: Yes Hx Unsteady Gait: Yes (CANE) - GASTROINTESTINAL Hx Gastrointestinal Disorders: Yes Hx Gall Bladder Disease: Yes Other/Comment: Gastric Bypass Surgery - GENITOURINARY/GYNECOLOGICAL Hx Genitourinary Disorders: Yes Hx Urinary Tract Infection: Yes - PSYCHIATRIC Hx Psychophysiologic Disorder: Yes (INSOMNIA) Hx Substance Use: No - SURGICAL HISTORY Hx Surgeries: Yes (IVC FILTER) Hx Gastric Bypass Surgery: Yes Hx Hysterectomy: Yes Hx Mastectomy: Yes (B/L Mastectomy) Other/Comment: b/l middle fingers amputated - ANESTHESIA Hx Anesthesia: Yes Hx Anesthesia Reactions: No Hx Malignant Hyperthermia: No Meds Allergies/Adverse Reactions: Allergies Allergy/AdvReac Type Severity Reaction Status Date / Time Penicillins Allergy ANGIOEDEMA/SHORTNESS Verified 07/28/17 18:24 OF BREATH - Medications Medications: Current Medications Albuterol/Ipratropium (Duoneb 3 Mg/0.5 Mg (3 Ml) Ud) 3 ml IH [id number] [facility] Last Admin: 07/29/17 13:32 Dose: 3 ml Albuterol/Ipratropium (Duoneb 3 Mg/0.5 Mg (3 Ml) Ud) 3 ml IH Q2H PRN PRN Reason: Shortness of Breath Apixaban (Eliquis) 5 mg PO Q12 [facility] PRN Reason: Protocol Last Admin: 07/29/17 10:06 Dose: 5 mg Ergocalciferol (Drisdol 50,000 Intl Units Cap) 1 cap PO Q7D [facility] Gabapentin (Neurontin) 400 mg PO Q8 [facility] PRN Reason: Protocol Last Admin: 07/29/17 16:23 Dose: Not Given Guaifenesin (Robitussin) 100 mg PO Q4H PRN PRN Reason: Cough Sodium Chloride (Sodium Chloride 0.9%) 1,000 mls @ 100 mls/hr IV .Q10H [facility] Last Admin: 07/28/17 18:51 Dose: 100 mls/hr Levofloxacin/Dextrose (Levaquin 750mg) 750 mg in 150 mls @ 100 mls/hr IVPB QOD [facility] PRN Reason: Protocol Last Admin: 07/29/17 14:04 Dose: 100 mls/hr Losartan Potassium (Cozaar) 50 mg PO DAILY [facility] Metoprolol Tartrate (Lopressor) 25 mg PO BID [facility] Last Admin: 07/28/17 18:21 Dose: 25 mg Oxycodone HCl (Oxycodone Immediate Release Tab) 30 mg PO Q8H PRN PRN Reason: Pain, severe (8-10) Last Admin: 07/29/17 14:03 Dose: 30 mg Pantoprazole Sodium (Protonix Ec Tab) 40 mg PO 0600,1600 [facility] Last Admin: 07/29/17 06:24 Dose: 40 mg Zolpidem Tartrate (Ambien) 5 mg PO HS [facility] PRN Reason: Protocol Last Admin: 07/28/17 23:17 Dose: 5 mg Results - Vital Signs Recent Vital Signs: Last Vital Signs Temp 97.2 F L 07/29/17 07:30 Pulse 82 07/29/17 13:43 Resp 17 07/29/17 07:30 BP 116/45 L 07/29/17 13:43 Pulse Ox 95 07/29/17 07:30 - Labs Result Diagrams: 07/29/17 07:00 07/29/17 07:00
[2017-07-30] MEDS: Albuterol-Ipratrop 3 mg / 0.5 (3 ml) UD IH SCH ×4 (02:20→19:48)
[2017-07-30] MEDS: Pantoprazole 40 mg EC Tab PO SCH ×2 (06:23→18:07)
[2017-07-30] MEDS: oxyCODONE 30 mg Immediate Release Tab PO PRN ×3 (06:23→21:07)
--- NOTE | 2017-07-30 06:52 | CP.PCM.PN ---
Subjective - Date & Time of Evaluation Date of Evaluation: 07/30/17 Time of Evaluation: 06:51 - Subjective Subjective: # 22 angiocath was inserted in right hand. Objective - Vital Signs/Intake and Output Vital Signs (last 24 hours): Temp Pulse Resp BP Pulse Ox 98.0 F 92 H 20 94/47 L 96 07/29/17 19:01 07/29/17 19:01 07/29/17 19:01 07/29/17 19:01 07/29/17 19:01 Intake and Output: 07/29/17 07/30/17 18:59 06:59 Intake Total 120 Balance 120 - Medications Medications: Current Medications Albuterol/Ipratropium (Duoneb 3 Mg/0.5 Mg (3 Ml) Ud) 3 ml IH [id number] [facility] Last Admin: 07/30/17 02:20 Dose: 3 ml Albuterol/Ipratropium (Duoneb 3 Mg/0.5 Mg (3 Ml) Ud) 3 ml IH Q2H PRN PRN Reason: Shortness of Breath Apixaban (Eliquis) 5 mg PO Q12 [facility] PRN Reason: Protocol Last Admin: 07/29/17 21:20 Dose: 5 mg Ergocalciferol (Drisdol 50,000 Intl Units Cap) 1 cap PO Q7D [facility] Gabapentin (Neurontin) 400 mg PO Q8 [facility] PRN Reason: Protocol Last Admin: 07/30/17 06:24 Dose: 400 mg Guaifenesin (Robitussin) 100 mg PO Q4H PRN PRN Reason: Cough Sodium Chloride (Sodium Chloride 0.9%) 1,000 mls @ 100 mls/hr IV .Q10H [facility] Last Admin: 07/28/17 18:51 Dose: 100 mls/hr Levofloxacin/Dextrose (Levaquin 750mg) 750 mg in 150 mls @ 100 mls/hr IVPB QOD [facility] PRN Reason: Protocol Last Admin: 07/29/17 14:04 Dose: 100 mls/hr Losartan Potassium (Cozaar) 50 mg PO DAILY [facility] Metoprolol Tartrate (Lopressor) 25 mg PO BID [facility] Last Admin: 07/28/17 18:21 Dose: 25 mg Ondansetron HCl (Zofran Inj) 2 mg IVP Q6H PRN PRN Reason: Nausea/Vomiting Last Admin: 07/29/17 19:59 Dose: 2 mg Oxycodone HCl (Oxycodone Immediate Release Tab) 30 mg PO Q8H PRN PRN Reason: Pain, severe (8-10) Last Admin: 07/30/17 06:23 Dose: 30 mg Pantoprazole Sodium (Protonix Ec Tab) 40 mg PO 0600,1600 [facility] Last Admin: 07/30/17 06:23 Dose: 40 mg Zolpidem Tartrate (Ambien) 5 mg PO HS [facility] PRN Reason: Protocol Last Admin: 07/28/17 23:17 Dose: 5 mg - Labs Labs: PT 14.0 SECONDS (9.4-12.5) H 07/28/17 11:05 INR 1.21 (0.93-1.08) H 07/28/17 11:05 APTT 31.4 Seconds (25.1-36.5) 07/28/17 11:05
[2017-07-30] MEDS: Benzocaine/Menthol (Cepacol) Lozenge MT PRN ×2 (09:03→18:07)
[2017-07-30 09:13] LABS: BASO # 0.01 K/mm3 (0.0-2.0); BASO % 0.2 % (0.0-3.0); EOS # 0.2 (0.0-0.7); GRAN # 2.71 (1.4-6.5); GRAN % 54.2 % (50.0-68.0); HEMOGLOBIN 9.3 g/dL (12.0-16.0); LYMPH # 1.8 (1.2-3.4); LYMPH % 35.4 % (22.0-35.0); MEAN CELL VOLUME 96.1 fl (80.0-105.0); MEAN CORPUSCULAR HEMOGLOBIN 30.1 pg (25.0-35.0); MEAN CORPUSCULAR HGB CONC 31.3 g/dl (31.0-37.0); MEAN PLATELET VOLUME 9.7 fl (7.0-11.0); MONO # 0.4 (0.1-0.6); MONO % 7.2 % (1.0-6.0); RBC 3.09 10^6/uL (3.5-6.1); RED CELL DISTRIBUTION WIDTH 14.2 % (11.5-14.5)
[2017-07-30 09:18] LABS: ALB/GLOB RATIO 1.1 (1.1-1.8); ALBUMIN 3.3 g/dL (3.0-4.8); CALCIUM 9.1 mg/dL (8.4-10.5)
--- NOTE | 2017-07-30 12:54 | CP.PCM.PN ---
<Mariusz Martinez - Last Filed: 07/30/17 12:51> Subjective - Date & Time of Evaluation Date of Evaluation: 07/30/17 Time of Evaluation: 06:00 - Subjective Subjective: Patient seen and evaluated bedside. patient states pain in right lower abdomen/ pubic area has improved. She also states she urinated around 2 am. No acute issues overnight. Patient was complaining of a headache and sore throat. She also stated she had some vomiting and diarrhea. No additional complaints at this time. Objective - Vital Signs/Intake and Output Vital Signs (last 24 hours): Temp Pulse Resp BP Pulse Ox 97.7 F 87 20 100/65 95 07/30/17 07:30 07/30/17 07:30 07/30/17 07:30 07/30/17 07:30 07/30/17 07:30 Intake and Output: 07/30/17 07/30/17 06:59 18:59 Intake Total 120 Balance 120 - Medications Medications: Current Medications Albuterol/Ipratropium (Duoneb 3 Mg/0.5 Mg (3 Ml) Ud) 3 ml IH [id number] [facility]S [facility]CLUDE 234 BEDS AT [facility] Last Admin: 07/30/17 07:26 Dose: 3 ml Albuterol/Ipratropium (Duoneb 3 Mg/0.5 Mg (3 Ml) Ud) 3 ml IH Q2H PRN PRN Reason: Shortness of Breath Apixaban (Eliquis) 5 mg PO Q12 [facility] PRN Reason: Protocol Last Admin: 07/30/17 09:03 Dose: 5 mg Benzocaine/Menthol (Cepacol Sore Throat) 1 mercedes MT Q2H PRN PRN Reason: Sore Throat Last Admin: 07/30/17 09:03 Dose: 1 mercedes Ergocalciferol (Drisdol 50,000 Intl Units Cap) 1 cap PO Q7D [facility] Gabapentin (Neurontin) 400 mg PO Q8 [facility] PRN Reason: Protocol Last Admin: 07/30/17 06:24 Dose: 400 mg Guaifenesin (Robitussin) 100 mg PO Q4H PRN PRN Reason: Cough Sodium Chloride (Sodium Chloride 0.9%) 1,000 mls @ 100 mls/hr IV .Q10H COUNTS INCLUDE 234 BEDS AT [facility] Last Admin: 07/28/17 18:51 Dose: 100 mls/hr Levofloxacin/Dextrose (Levaquin 750mg) 750 mg in 150 mls @ 100 mls/hr IVPB QOD [facility] PRN Reason: Protocol Last Admin: 07/29/17 14:04 Dose: 100 mls/hr Lactobacillus Acidophilus (Bacid Acidophilus) 1 cap PO BID [facility] 234 BEDS AT [facility] Losartan Potassium (Cozaar) 50 mg PO DAILY [facility] 234 BEDS AT [facility] Metoprolol Tartrate (Lopressor) 25 mg PO BID [facility] 234 BEDS AT [facility] Last Admin: 07/28/17 18:21 Dose: 25 mg Ondansetron HCl (Zofran Inj) 2 mg IVP Q6H PRN PRN Reason: Nausea/Vomiting Last Admin: 07/29/17 19:59 Dose: 2 mg Oxycodone HCl (Oxycodone Immediate Release Tab) 30 mg PO Q8H PRN PRN Reason: Pain, severe (8-10) Last Admin: 07/30/17 06:23 Dose: 30 mg Pantoprazole Sodium (Protonix Ec Tab) 40 mg PO 0600,1600 [facility] Last Admin: 07/30/17 06:23 Dose: 40 mg Zolpidem Tartrate (Ambien) 5 mg PO HS [facility]S [facility]CLUDE 234 BEDS AT [facility] PRN Reason: Protocol Last Admin: 07/28/17 23:17 Dose: 5 mg - Labs Labs: 07/30/17 08:45 07/30/17 08:45 PT 14.0 SECONDS (9.4-12.5) H 07/28/17 11:05 INR 1.21 (0.93-1.08) H 07/28/17 11:05 APTT 31.4 Seconds (25.1-36.5) 07/28/17 11:05 - Constitutional Appears: Non-toxic, No Acute Distress - Head Exam Head Exam: NORMAL INSPECTION, NORMOCEPHALIC - Eye Exam Eye Exam: Normal appearance - ENT Exam ENT Exam: Mucous Membranes Moist - Neck Exam Neck Exam: absent: Lymphadenopathy - Respiratory Exam Respiratory Exam: Clear to Ausculation Bilateral, NORMAL BREATHING PATTERN - Cardiovascular Exam Cardiovascular Exam: REGULAR RHYTHM - GI/Abdominal Exam GI & Abdominal Exam: Tenderness, Normal Bowel Sounds - Extremities Exam Extremities Exam: Pedal Edema - Neurological Exam Neurological Exam: Alert, Awake, Oriented x3 - Skin Skin Exam: Normal Color Assessment and Plan - Assessment and Plan (Free Text) Assessment: 62 year old AA female with with PMH of Protein C deficiency, asthma, HLD, HTN, atrial fibrillation, DVT with IVC filter, previous CVA, and 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 Plan: 1. Bronchitis -rapid flu negative -Continue levaquin -Chest xray: trace linear atelectasis -currently afebrile -no leukocytosis -Oxygen as needed -blood, urine, sputum cultures negative -V/Q scan low probability for PE -duonebs -cepachol -robitussin -procal .55 likely false elevation, will reorder 2. JOSEFINA-likely prerenal -patient urinated at 2 am more than usual (120ml) -will monitor -Continue NS -BUN: 24 Cr: 1.3 -Nephro consulted, Stephon, follow recs : JOSEFINA to low BP, conitnue fluids, renal US -continue to monitor renal function and urine output -strict I and Os -120ml output urine 3. Diarrhea -likely secondary to abx use -lactobacillus added -C diff pending 4. Headache -no focal deficits -tylenol given 5. History of Protein C Deficiency -Continue home eliquis 6. History of HTN -currently 100/65 -hold losartan and metroprolol -Monitor with scheduled VS -Heart Healthy Diet 7. History of Atrial Fibrillation -Continue home eliquis Prophylaxis Protonix Eliquis <Kathe Garcia B - Last Filed: 07/30/17 17:02> Objective - Vital Signs/Intake and Output Vital Signs (last 24 hours): Temp Pulse Resp BP Pulse Ox 97.7 F 87 20 100/65 95 07/30/17 07:30 07/30/17 07:30 07/30/17 07:30 07/30/17 07:30 07/30/17 07:30 Intake and Output: 07/30/17 07/30/17 06:59 18:59 Intake Total 120 720 Balance 120 720 - Medications Medications: Current Medications Albuterol/Ipratropium (Duoneb 3 Mg/0.5 Mg (3 Ml) Ud) 3 ml IH [id number] COUNTS INCLUDE 234 BEDS AT [facility] Last Admin: 07/30/17 13:02 Dose: 3 ml Albuterol/Ipratropium (Duoneb 3 Mg/0.5 Mg (3 Ml) Ud) 3 ml IH Q2H PRN PRN Reason: Shortness of Breath Apixaban (Eliquis) 5 mg PO Q12 [facility] PRN Reason: Protocol Last Admin: 07/30/17 09:03 Dose: 5 mg Benzocaine/Menthol (Cepacol Sore Throat) 1 mercedes MT Q2H PRN PRN Reason: Sore Throat Last Admin: 07/30/17 09:03 Dose: 1 mercedes Ergocalciferol (Drisdol 50,000 Intl Units Cap) 1 cap PO Q7D [facility] Gabapentin (Neurontin) 400 mg PO Q8 [facility] PRN Reason: Protocol Last Admin: 07/30/17 14:07 Dose: 400 mg Guaifenesin (Robitussin) 100 mg PO Q4H PRN PRN Reason: Cough Sodium Chloride (Sodium Chloride 0.9%) 1,000 mls @ 100 mls/hr IV .Q10H COUNTS INCLUDE 234 BEDS AT [facility] Last Admin: 07/28/17 18:51 Dose: 100 mls/hr Levofloxacin/Dextrose (Levaquin 750mg) 750 mg in 150 mls @ 100 mls/hr IVPB QOD [facility]S INCLUDE 234 BEDS AT [facility] PRN Reason: Protocol Last Admin: 07/29/17 14:04 Dose: 100 mls/hr Lactobacillus Acidophilus (Bacid Acidophilus) 1 cap PO BID [facility]CLUDE 234 BEDS AT [facility] Losartan Potassium (Cozaar) 50 mg PO DAILY [facility]CLUDE 234 BEDS AT [facility] Metoprolol Tartrate (Lopressor) 25 mg PO BID [facility]CLUDE 234 BEDS AT [facility] Last Admin: 07/28/17 18:21 Dose: 25 mg Ondansetron HCl (Zofran Inj) 2 mg IVP Q6H PRN PRN Reason: Nausea/Vomiting Last Admin: 07/29/17 19:59 Dose: 2 mg Oxycodone HCl (Oxycodone Immediate Release Tab) 30 mg PO Q8H PRN PRN Reason: Pain, severe (8-10) Last Admin: 07/30/17 14:07 Dose: 30 mg Pantoprazole Sodium (Protonix Ec Tab) 40 mg PO 0600,1600 COUNTS INCLUDE 234 BEDS AT [facility] Last Admin: 07/30/17 06:23 Dose: 40 mg Zolpidem Tartrate (Ambien) 5 mg PO HS COUNTS INCLUDE 234 BEDS AT [facility] PRN Reason: Protocol Last Admin: 07/28/17 23:17 Dose: 5 mg - Labs Labs: 07/30/17 08:45 07/30/17 08:45 PT 14.0 SECONDS (9.4-12.5) H 07/28/17 11:05 INR 1.21 (0.93-1.08) H 07/28/17 11:05 APTT 31.4 Seconds (25.1-36.5) 07/28/17 11:05 Attending/Attestation - Attestation I have personally seen and examined this patient.: Yes I have fully participated in the care of the patient.: Yes I have reviewed all pertinent clinical information, including history, physical exam and plan: Yes Notes (Text): I have seen and examined the patient at bedside. 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 Flu negative. V/Q scan show low probability scan. CT chest revealed no consolidation. Continue duonebs, levaquin and oxygen supplementation. Continue to have mild cough with sputum production. Procal was elevated. Will repeat that today. Last night, patient had multiple episodes of loose watery diarrhea and vomiting. Stool for cdiff pending. Lactobacillus added. Upon admission, patient reported urinary retention and found to have JOSEFINA. Creatinine was 2.2 and today it has improved to 1.3 with IVF. Nephro consult appreciated. Patient has been passing urine in the bathroom without any problem. Continue IVF . Continue eliquis for atrial fibrillation. Upon discharge patient will follow up with Dr Cohen. Dr Kathe Garcia
--- NOTE | 2017-07-30 15:08 | CP.PCM.PN ---
Subjective - Date & Time of Evaluation Date of Evaluation: 07/30/17 Time of Evaluation: 15:06 - Subjective Subjective: Nephrology Consultation Note: Assessment: Stable Acute Kidney Injury (N17.9) likely due to prerenal state and low blood pressure : Improved Acute bronchitis History of protein C deficiency and DVT and IVC filter history of rhabdomyolysis in the past Plan No acute need for renal replacement therapy at this time. Hypertension control with meds as ordered. Agree to hold ACEI/ARB due to JOSEFINA Monitor Input/Output, daily weights and renal function with basic metabolic panel DC fluid as patient complain leg swelling Dose meds/antibiotics for Improved GFR. Avoid fleets enema/magnesium based laxatives. Avoid nephrotoxins/NSAIDs/ iodinated contrast (unless needed emergently) Glycemic control Further work up/management as per primary team Patient stable for discharge from renal perspective. Continue to hold blood pressure medication at this time. Patient advised to follow with me in one week in office Thanks for allowing me to participate in care of your patient. Will follow patient with you. Please call if any Qs. 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 She feels better at this time shortness of breath is better cough is better she also reported some difficulty in urination earlier. Denies OTC/herbal meds or NSAIDs No recent iodinated contrast exposure. noted episodes of low BP. ROS: Cardiovascular: No chest pain. Pulmonary: No shortness of breath . has cough Gastrointestinal: denies abdominal pain No nausea. No vomiting. Genitourinary: No pain while urinating. Denies blood in urine. All other negative except as mentioned in HPI Physical Examination: General Appearance: Comfortable, in no acute respiratory distress, co-operative . She is obese Vitals reviewed and noted as below Head; Atraumatic, normocephalic ENT: no ulcers no thrush. Tongue is midline. Oropharynx: no rash or ulcers. EYES: Pupils are equal, round and reactive to light accommodation. Eye muscles and extraocular movement intact. Sclera is anicteric. Neck; supple no lymphadenopathy, no thyromegaly or bruit Lungs: Normal respiratory rate/effort. Breath sounds bilateral equal and clear Heart: Normal rate. s1s2 normal. No rub or gallop. Extremities: no edema. No varicose veins Neurological: Patient is alert, awake and oriented to person, place and time. No focal deficit. Strength bilateral appropriate and equal Skin: Warm and dry. Normal turgor. No rash. Palpitation: Normal elasticity for age Abdomen: Abdomen is soft. Bowel sounds +. There is no abdominal tenderness, no guarding/rigidity no organomegaly Psych: normal insight and normal affect/mood MSK: no joint tenderness or swelling. Digits and nails normal, no deformity : kidney or bladder not palpable Labs/imaging reviewed. Past medical history, past surgical history, family history, social history, allergy reviewed and noted as below Family hx: no hx of CKD. Rest non-contributory Workup her CPK level is 72 UA shows trace ketone Objective - Vital Signs/Intake and Output Vital Signs (last 24 hours): Temp Pulse Resp BP Pulse Ox 97.7 F 87 20 100/65 95 07/30/17 07:30 07/30/17 07:30 07/30/17 07:30 07/30/17 07:30 07/30/17 07:30 Intake and Output: 07/30/17 07/30/17 06:59 18:59 Intake Total 120 720 Balance 120 720 - Medications Medications: Current Medications Albuterol/Ipratropium (Duoneb 3 Mg/0.5 Mg (3 Ml) Ud) 3 ml IH [id number] [facility] Last Admin: 07/30/17 13:02 Dose: 3 ml Albuterol/Ipratropium (Duoneb 3 Mg/0.5 Mg (3 Ml) Ud) 3 ml IH Q2H PRN PRN Reason: Shortness of Breath Apixaban (Eliquis) 5 mg PO Q12 [facility] PRN Reason: Protocol Last Admin: 07/30/17 09:03 Dose: 5 mg Benzocaine/Menthol (Cepacol Sore Throat) 1 mercedes MT Q2H PRN PRN Reason: Sore Throat Last Admin: 07/30/17 09:03 Dose: 1 mercedes Ergocalciferol (Drisdol 50,000 Intl Units Cap) 1 cap PO Q7D [facility] Gabapentin (Neurontin) 400 mg PO Q8 [facility] PRN Reason: Protocol Last Admin: 07/30/17 14:07 Dose: 400 mg Guaifenesin (Robitussin) 100 mg PO Q4H PRN PRN Reason: Cough Sodium Chloride (Sodium Chloride 0.9%) 1,000 mls @ 100 mls/hr IV .Q10H [facility] Last Admin: 07/28/17 18:51 Dose: 100 mls/hr Levofloxacin/Dextrose (Levaquin 750mg) 750 mg in 150 mls @ 100 mls/hr IVPB QOD [facility] PRN Reason: Protocol Last Admin: 07/29/17 14:04 Dose: 100 mls/hr Lactobacillus Acidophilus (Bacid Acidophilus) 1 cap PO BID [facility] Losartan Potassium (Cozaar) 50 mg PO DAILY [facility] Metoprolol Tartrate (Lopressor) 25 mg PO BID [facility] Last Admin: 07/28/17 18:21 Dose: 25 mg Ondansetron HCl (Zofran Inj) 2 mg IVP Q6H PRN PRN Reason: Nausea/Vomiting Last Admin: 07/29/17 19:59 Dose: 2 mg Oxycodone HCl (Oxycodone Immediate Release Tab) 30 mg PO Q8H PRN PRN Reason: Pain, severe (8-10) Last Admin: 07/30/17 14:07 Dose: 30 mg Pantoprazole Sodium (Protonix Ec Tab) 40 mg PO 0600,1600 [facility] Last Admin: 07/30/17 06:23 Dose: 40 mg Zolpidem Tartrate (Ambien) 5 mg PO HS [facility] PRN Reason: Protocol Last Admin: 07/28/17 23:17 Dose: 5 mg - Labs Labs: 07/30/17 08:45 07/30/17 08:45 PT 14.0 SECONDS (9.4-12.5) H 07/28/17 11:05 INR 1.21 (0.93-1.08) H 07/28/17 11:05 APTT 31.4 Seconds (25.1-36.5) 07/28/17 11:05
[2017-07-30] MEDS: Lactobacillus Acidophilus 500 MU Cap PO SCH (18:07)
[2017-07-30] MEDS: guaiFENesin 100 mg/5 ml Syrup UD PO PRN (18:33)
--- NOTE | 2017-07-30 19:02 | US ---
PROCEDURE: Ultrasound of the Kidneys HISTORY: JOSEFINA COMPARISON: None available. TECHNIQUE: Sonogram of the kidneys. FINDINGS: RIGHT KIDNEY: Measures: 11.3 x 5.4 x 5.4 cm. No obstructing calculus or hydronephrosis identified. 2.5 cm and 1.4 cm simple appearing cysts. LEFT KIDNEY: Measures: 10.8 x 5.7 x 4.8 cm. No obstructing calculus, hydronephrosis, or renal cyst identified. OTHER FINDINGS: None. IMPRESSION: Simple appearing right renal cysts. No evidence of hydronephrosis or obstructing calculi.
[2017-07-31] MEDS: Albuterol-Ipratrop 3 mg / 0.5 (3 ml) UD IH SCH ×4 (01:21→19:27)
[2017-07-31] MEDS: oxyCODONE 30 mg Immediate Release Tab PO PRN ×3 (05:40→21:47)
[2017-07-31] MEDS: Pantoprazole 40 mg EC Tab PO SCH (05:40)
[2017-07-31 07:03] LABS: BASO # 0.01 K/mm3 (0.0-2.0); BASO % 0.2 % (0.0-3.0); EOS # 0.2 (0.0-0.7); EOS % 3.6 % (1.5-5.0); GRAN # 2.19 (1.4-6.5); GRAN % 44.4 % (50.0-68.0); HEMOGLOBIN 9.2 g/dL (12.0-16.0); LYMPH # 1.9 (1.2-3.4); LYMPH % 37.4 % (22.0-35.0); MEAN CORPUSCULAR HEMOGLOBIN 30.6 pg (25.0-35.0); MEAN CORPUSCULAR HGB CONC 31.8 g/dl (31.0-37.0); MEAN PLATELET VOLUME 9.6 fl (7.0-11.0); MONO # 0.7 (0.1-0.6); MONO % 14.4 % (1.0-6.0); RBC 3.01 10^6/uL (3.5-6.1); RED CELL DISTRIBUTION WIDTH 14.2 % (11.5-14.5); WHITE BLOOD COUNT 4.9 10^3/ul (4.5-11.0)
[2017-07-31 07:17] LABS: ALT/SGPT 63 U/L (7-56); AST/SGOT 54 U/L (14-36); BLOOD UREA NITROGEN 21 mg/dL (7-21); CALCIUM 9.4 mg/dL (8.4-10.5); GFR AFRICAN-AMERICAN > 60; GFR NON-AFRICAN AMERICAN 56
--- NOTE | 2017-07-31 09:42 | CP.PCM.DIS ---
<BogdanjuanjosemaryPeyton - Last Filed: 07/31/17 09:31> Provider - Provider Date of Admission: 07/29/17 12:11 Attending physician: Kathe Garcia MD Primary care physician: Orestes Ho MD Consults: Jose: Dr. Szymanski Time Spent in preparation of Discharge (in minutes): 35 Hospital Course - Lab Results Lab Results: Most Recent Lab Values WBC 4.9 10^3/ul (4.5-11.0) 07/31/17 06:30 RBC 3.01 10^6/uL (3.5-6.1) L 07/31/17 06:30 Hgb 9.2 g/dL (12.0-16.0) L 07/31/17 06:30 Hct 28.9 % (36.0-48.0) L 07/31/17 06:30 MCV 96.0 fl (80.0-105.0) 07/31/17 06:30 MCH 30.6 pg (25.0-35.0) 07/31/17 06:30 MCHC 31.8 g/dl (31.0-37.0) 07/31/17 06:30 RDW 14.2 % (11.5-14.5) 07/31/17 06:30 Plt Count 158 10^3/uL (120.0-450.0) 07/31/17 06:30 MPV 9.6 fl (7.0-11.0) 07/31/17 06:30 Gran % 44.4 % (50.0-68.0) L 07/31/17 06:30 Lymph % (Auto) 37.4 % (22.0-35.0) H 07/31/17 06:30 [place] % (Auto) 14.4 % (1.0-6.0) H 07/31/17 06:30 Eos % (Auto) 3.6 % (1.5-5.0) 07/31/17 06:30 Baso % (Auto) 0.2 % (0.0-3.0) 07/31/17 06:30 Gran # 2.19 (1.4-6.5) 07/31/17 06:30 Lymph # (Auto) 1.9 (1.2-3.4) 07/31/17 06:30 [place] # (Auto) 0.7 (0.1-0.6) H 07/31/17 06:30 Eos # (Auto) 0.2 (0.0-0.7) 07/31/17 06:30 Baso # (Auto) 0.01 K/mm3 (0.0-2.0) 07/31/17 06:30 PT 14.0 SECONDS (9.4-12.5) H 07/28/17 11:05 INR 1.21 (0.93-1.08) H 07/28/17 11:05 APTT 31.4 Seconds (25.1-36.5) 07/28/17 11:05 pCO2 36 mm/Hg (35-45) 07/28/17 12:05 pO2 73.0 mm/Hg (80-100) L 07/28/17 12:05 HCO3 17.7 mmol/L (21-28) L 07/28/17 12:05 ABG pH 7.30 (7.35-7.45) L 07/28/17 12:05 ABG Total CO2 18.8 mmol.L (22-28) L 07/28/17 12:05 ABG O2 Saturation 96.8 % (95-98) 07/28/17 12:05 ABG Base Excess -7.9 mmol/L (-2.0-3.0) L 07/28/17 12:05 ABG Potassium 3.3 mmol/L (3.6-5.2) L 07/28/17 12:05 VBG pH 7.18 (7.32-7.43) L* 07/28/17 11:10 VBG pCO2 59.0 (40-60) 07/28/17 11:10 VBG HCO3 22.0 mmol/l (21-28) 07/28/17 11:10 VBG Total CO2 23.8 mmol.L (22-28) 07/28/17 11:10 VBG O2 Sat (Calc) 71.4 % (40-65) H 07/28/17 11:10 VBG Base Excess -7.1 mmol/L (0.0-2.0) L 07/28/17 11:10 VBG Potassium 3.8 mmol/L (3.6-5.2) 07/28/17 11:10 Sodium 136.0 mmol/L (132-148) 07/28/17 12:05 Chloride 110.0 mmol/L (98-107) H 07/28/17 12:05 Glucose 88 mg/dl (65-105) 07/28/17 12:05 Lactate 1.5 mmol/L (0.7-2.1) 07/28/17 12:05 FiO2 21.0 % 07/28/17 12:05 Sodium 141 mmol/L (132-148) 07/31/17 06:30 Potassium 4.8 mmol/L (3.6-5.0) 07/31/17 06:30 Chloride 112 mmol/L (98-107) H 07/31/17 06:30 Carbon Dioxide 21 mmol/L (21-33) 07/31/17 06:30 Anion Gap 13 (10-20) 07/31/17 06:30 BUN 21 mg/dL (7-21) 07/31/17 06:30 Creatinine 1.0 mg/dl (0.7-1.2) 07/31/17 06:30 Est GFR ( Amer) > 60 07/31/17 06:30 Est GFR (Non-Af Amer) 56 07/31/17 06:30 Random Glucose 77 mg/dL (70-110) 07/31/17 06:30 Calcium 9.4 mg/dL (8.4-10.5) 07/31/17 06:30 Magnesium 2.1 mg/dL (1.7-2.2) 07/28/17 11:05 Total Bilirubin 0.5 mg/dL (0.2-1.3) 07/31/17 06:30 AST 54 U/L (14-36) H D 07/31/17 06:30 ALT 63 U/L (7-56) H 07/31/17 06:30 Alkaline Phosphatase 67 U/L (38-126) 07/31/17 06:30 Lactate Dehydrogenase 867 U/L (333-699) H 07/28/17 11:05 Total Creatine Kinase 72 U/L (35-230) 07/28/17 11:05 Troponin I < 0.01 ng/mL 07/28/17 11:05 Total Protein 5.9 g/dL (5.8-8.3) 07/31/17 06:30 Albumin 3.0 g/dL (3.0-4.8) 07/31/17 06:30 Globulin 2.9 gm/dL 07/31/17 06:30 Albumin/Globulin Ratio 1.0 (1.1-1.8) L 07/31/17 06:30 Procalcitonin 0.21 NG/ML (0.19-0.49) 07/30/17 11:11 Arterial Blood Potassium 3.3 mmol/L (3.6-5.2) L 07/28/17 12:05 Venous Blood Potassium 3.8 mmol/L (3.6-5.2) 07/28/17 11:10 Urine Color Yellow (YELLOW) 07/28/17 13:32 Urine Appearance Clear (CLEAR) 07/28/17 13:32 Urine pH 6.0 (4.7-8.0) 07/28/17 13:32 Ur Specific [place] 1.010 (1.005-1.035) 07/28/17 13:32 Urine Protein Negative mg/dL (<30 mg/dL) 07/28/17 13:32 Urine Glucose (UA) Negative mg/dL (NEGATIVE) 07/28/17 13:32 Urine Ketones Trace mg/dL (NEGATIVE) H 07/28/17 13:32 Urine Blood Negative (NEGATIVE) 07/28/17 13:32 Urine Nitrate Negative (NEGATIVE) 07/28/17 13:32 Urine Bilirubin Negative (NEGATIVE) 07/28/17 13:32 Urine Urobilinogen 0.2 E.U./dL (<1 E.U./dL) 07/28/17 13:32 Ur Leukocyte Esterase Trace Zheng/uL (NEGATIVE) H 07/28/17 13:32 Urine RBC 0 - 2 /hpf (0-2) 07/28/17 13:32 Urine WBC 0 - 2 /hpf (0-6) 07/28/17 13:32 Ur Epithelial Cells 0 - 2 /hpf (0-5) 07/28/17 13:32 Calcium Oxalate Crystal Occ /hpf 07/28/17 13:32 Urine Bacteria Few (NEG) 07/28/17 13:32 Influenza Typ A,B (EIA) Negative for flu a/b (NEGATIVE) 07/28/17 11:00 Grp A Beta Strep Ag Negative (NEGATIVE) 07/28/17 11:54 - Hospital Course Hospital Course: This is a 62yo AA female with past medical history of HTN, HLD, a.fib (on Eliquis), DVT w/ IVC filter, CVA, protein C deficiency and 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 As far as the bronchitis, patient was negative for flu with a negative CT chest. V/Q scan was done considering pt's history and was low probability for PE. Patient was placed on Levaquin and has been afebrile. Sputum culture showed gram negative bacilli. Once the micro comes back, will review and notify the patient if any antibiotics need to be changed. She also complained of one episode of water diarrhea. She was placed on Lactobacillis and diarrhea has now resolved. She was also noted to have urinary retention upon admission with JOSEFINA. The urinary retention was only one episode on admission and was monitored through bladder scanning. Patient denies any difficulty urinating at this time, but was noted to be hypotensive. Nephrology was consulted and thought the JOSEFINA is secondary to dehydration. Patient was hydrated and JOSEFINA has now resolved. Her SBP is still on the lower side. Her BP medications have been held. The patient has an appointment on ThursdayAugust 03 at 11:30am for follow up on her blood pressure. It is recommended that patient continues her Eliquis and other home medication. I discussed plan with patient and she verbalized and agreed with discharge plan. - Date & Time of H&P Date of H&P: 07/28/17 Time of H&P: 14:00 Discharge Exam - Head Exam Head Exam: NORMAL INSPECTION, NORMOCEPHALIC - Eye Exam Eye Exam: Normal appearance, PERRL Pupil Exam: NORMAL ACCOMODATION - ENT Exam ENT Exam: Mucous Membranes Moist - Respiratory Exam Respiratory Exam: Clear to PA & Lateral, NORMAL BREATHING PATTERN, UNREMARKABLE. absent: Rales, Rhonchi, Wheezes - Cardiovascular Exam Cardiovascular Exam: REGULAR RHYTHM, +S1, +S2. absent: Gallop, Rubs, Systolic Murmur - GI/Abdominal Exam GI & Abdominal Exam: Normal Bowel Sounds, Soft, Unremarkable. absent: Rebound, Rigid, Tenderness - Extremities Exam Extremities exam: normal inspection - Neurological Exam Neurological exam: Alert, CN II-XII Intact, Normal Gait, Oriented x3 - Psychiatric Exam Psychiatric exam: Normal Affect, Normal Mood - Skin Skin Exam: Dry, Intact, Warm Discharge Plan - Discharge Medications Prescriptions: Benzocaine/Menthol [Cepacol Sore Throat] 1 mercedes MT Q2H PRN #30 mercedes PRN Reason: Sore Throat Levofloxacin [Levaquin] 750 mg PO DAILY #7 tablet - Follow Up Plan Condition: FAIR Disposition: HOME/ ROUTINE Additional Instructions: 1. Take Levaquin 750mg daily x 7 days 2. Cepachol lozenges as needed for sore throat 3. Do not take blood pressure medication due to normal/low BP during hospital stay - Check BP at home over weekend- if high please take your Metoprolol 25mg daily 4. Follow up with Dr. Moe on Thursday at 11:30 am for hospital follow up and blood pressure medication management. 5. Continue other home medications. 6. Drink plenty of fluids to maintain hydration. Referrals: Orestes Ho MD [Primary Care Provider] - <Kathe Garcia - Last Filed: 07/31/17 11:22> Provider - Provider Date of Admission: 07/29/17 12:11 Attending physician: Kathe Garcia MD Primary care physician: Orestes Ho MD Hospital Course - Lab Results Lab Results: Most Recent Lab Values WBC 4.9 10^3/ul (4.5-11.0) 07/31/17 06:30 RBC 3.01 10^6/uL (3.5-6.1) L 07/31/17 06:30 Hgb 9.2 g/dL (12.0-16.0) L 07/31/17 06:30 Hct 28.9 % (36.0-48.0) L 07/31/17 06:30 MCV 96.0 fl (80.0-105.0) 07/31/17 06:30 MCH 30.6 pg (25.0-35.0) 07/31/17 06:30 MCHC 31.8 g/dl (31.0-37.0) 07/31/17 06:30 RDW 14.2 % (11.5-14.5) 07/31/17 06:30 Plt Count 158 10^3/uL (120.0-450.0) 07/31/17 06:30 MPV 9.6 fl (7.0-11.0) 07/31/17 06:30 Gran % 44.4 % (50.0-68.0) L 07/31/17 06:30 Lymph % (Auto) 37.4 % (22.0-35.0) H 07/31/17 06:30 [place] % (Auto) 14.4 % (1.0-6.0) H 07/31/17 06:30 Eos % (Auto) 3.6 % (1.5-5.0) 07/31/17 06:30 Baso % (Auto) 0.2 % (0.0-3.0) 07/31/17 06:30 Gran # 2.19 (1.4-6.5) 07/31/17 06:30 Lymph # (Auto) 1.9 (1.2-3.4) 07/31/17 06:30 [place] # (Auto) 0.7 (0.1-0.6) H 07/31/17 06:30 Eos # (Auto) 0.2 (0.0-0.7) 07/31/17 06:30 Baso # (Auto) 0.01 K/mm3 (0.0-2.0) 07/31/17 06:30 PT 14.0 SECONDS (9.4-12.5) H 07/28/17 11:05 INR 1.21 (0.93-1.08) H 07/28/17 11:05 APTT 31.4 Seconds (25.1-36.5) 07/28/17 11:05 pCO2 36 mm/Hg (35-45) 07/28/17 12:05 pO2 73.0 mm/Hg (80-100) L 07/28/17 12:05 HCO3 17.7 mmol/L (21-28) L 07/28/17 12:05 ABG pH 7.30 (7.35-7.45) L 07/28/17 12:05 ABG Total CO2 18.8 mmol.L (22-28) L 07/28/17 12:05 ABG O2 Saturation 96.8 % (95-98) 07/28/17 12:05 ABG Base Excess -7.9 mmol/L (-2.0-3.0) L 07/28/17 12:05 ABG Potassium 3.3 mmol/L (3.6-5.2) L 07/28/17 12:05 VBG pH 7.18 (7.32-7.43) L* 07/28/17 11:10 VBG pCO2 59.0 (40-60) 07/28/17 11:10 VBG HCO3 22.0 mmol/l (21-28) 07/28/17 11:10 VBG Total CO2 23.8 mmol.L (22-28) 07/28/17 11:10 VBG O2 Sat (Calc) 71.4 % (40-65) H 07/28/17 11:10 VBG Base Excess -7.1 mmol/L (0.0-2.0) L 07/28/17 11:10 VBG Potassium 3.8 mmol/L (3.6-5.2) 07/28/17 11:10 Sodium 136.0 mmol/L (132-148) 07/28/17 12:05 Chloride 110.0 mmol/L (98-107) H 07/28/17 12:05 Glucose 88 mg/dl (65-105) 07/28/17 12:05 Lactate 1.5 mmol/L (0.7-2.1) 07/28/17 12:05 FiO2 21.0 % 07/28/17 12:05 Sodium 141 mmol/L (132-148) 07/31/17 06:30 Potassium 4.8 mmol/L (3.6-5.0) 07/31/17 06:30 Chloride 112 mmol/L (98-107) H 07/31/17 06:30 Carbon Dioxide 21 mmol/L (21-33) 07/31/17 06:30 Anion Gap 13 (10-20) 07/31/17 06:30 BUN 21 mg/dL (7-21) 07/31/17 06:30 Creatinine 1.0 mg/dl (0.7-1.2) 07/31/17 06:30 Est GFR ( Amer) > 60 07/31/17 06:30 Est GFR (Non-Af Amer) 56 07/31/17 06:30 Random Glucose 77 mg/dL (70-110) 07/31/17 06:30 Calcium 9.4 mg/dL (8.4-10.5) 07/31/17 06:30 Magnesium 2.1 mg/dL (1.7-2.2) 07/28/17 11:05 Total Bilirubin 0.5 mg/dL (0.2-1.3) 07/31/17 06:30 AST 54 U/L (14-36) H D 07/31/17 06:30 ALT 63 U/L (7-56) H 07/31/17 06:30 Alkaline Phosphatase 67 U/L (38-126) 07/31/17 06:30 Lactate Dehydrogenase 867 U/L (333-699) H 07/28/17 11:05 Total Creatine Kinase 72 U/L (35-230) 07/28/17 11:05 Troponin I < 0.01 ng/mL 07/28/17 11:05 Total Protein 5.9 g/dL (5.8-8.3) 07/31/17 06:30 Albumin 3.0 g/dL (3.0-4.8) 07/31/17 06:30 Globulin 2.9 gm/dL 07/31/17 06:30 Albumin/Globulin Ratio 1.0 (1.1-1.8) L 07/31/17 06:30 Procalcitonin 0.21 NG/ML (0.19-0.49) 07/30/17 11:11 Arterial Blood Potassium 3.3 mmol/L (3.6-5.2) L 07/28/17 12:05 Venous Blood Potassium 3.8 mmol/L (3.6-5.2) 07/28/17 11:10 Urine Color Yellow (YELLOW) 07/28/17 13:32 Urine Appearance Clear (CLEAR) 07/28/17 13:32 Urine pH 6.0 (4.7-8.0) 07/28/17 13:32 Ur Specific [place] 1.010 (1.005-1.035) 07/28/17 13:32 Urine Protein Negative mg/dL (<30 mg/dL) 07/28/17 13:32 Urine Glucose (UA) Negative mg/dL (NEGATIVE) 07/28/17 13:32 Urine Ketones Trace mg/dL (NEGATIVE) H 07/28/17 13:32 Urine Blood Negative (NEGATIVE) 07/28/17 13:32 Urine Nitrate Negative (NEGATIVE) 07/28/17 13:32 Urine Bilirubin Negative (NEGATIVE) 07/28/17 13:32 Urine Urobilinogen 0.2 E.U./dL (<1 E.U./dL) 07/28/17 13:32 Ur Leukocyte Esterase Trace Zheng/uL (NEGATIVE) H 07/28/17 13:32 Urine RBC 0 - 2 /hpf (0-2) 07/28/17 13:32 Urine WBC 0 - 2 /hpf (0-6) 07/28/17 13:32 Ur Epithelial Cells 0 - 2 /hpf (0-5) 07/28/17 13:32 Calcium Oxalate Crystal Occ /hpf 07/28/17 13:32 Urine Bacteria Few (NEG) 07/28/17 13:32 Influenza Typ A,B (EIA) Negative for flu a/b (NEGATIVE) 07/28/17 11:00 Grp A Beta Strep Ag Negative (NEGATIVE) 07/28/17 11:54 Attending/Attestation - Attestation I have personally seen and examined this patient.: Yes I have fully participated in the care of the patient.: Yes I have reviewed all pertinent clinical information, including history, physical exam and plan: Yes Notes (Text): I have seen and examined the patient at bedside. 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 Flu negative. V/Q scan show low probability scan. CT chest revealed no consolidation. Blood and urine culture negative. Procal elevated and is trending down. Sputum culture revealed gram negative rods. Patient feels better today and denies any complaints. Continue levaquin. Patients diarrhea and vomiting has completely resolved. Stool for cdiff was not even sent. Upon admission, patient reported urinary retention and found to have JOSEFINA. Creatinine was 2.2 and today it has improved to 1. JOSEFINA was most likely due to pre renal etiology. Nephro consult appreciated. Patient has been passing urine in the bathroom without any problem. Continue eliquis for atrial fibrillation. Upon discharge patient will follow up with Dr Cohen. Dr Kathe Garcia
[2017-07-31] MEDS: Lactobacillus Acidophilus 500 MU Cap PO SCH ×2 (10:58→16:53)
[2017-07-31] MEDS: levoFLOXacin 750 mg in D5W 750 MG/150 ML BAG IVPB SCH (10:58)
[2017-07-31 11:40] LABS: CREATININE,RANDOM URINE 29 mg/dL
[2017-07-31] MEDS ORDERED: Meropenem 500 MG in Sodium Chloride 0.9% 50 ML IVPB SCH (15:15)
--- NOTE | 2017-07-31 15:19 | CP.PCM.PN ---
Subjective - Date & Time of Evaluation Date of Evaluation: 07/31/17 Time of Evaluation: 15:18 - Subjective Subjective: Nephrology Consultation Note: Assessment: Stable Acute Kidney Injury (N17.9) likely due to prerenal state and low blood pressure : Improved Acute bronchitis/PNA with MDR E coli in sputum History of protein C deficiency and DVT and IVC filter history of rhabdomyolysis in the past Plan No acute need for renal replacement therapy at this time. BP controlled without meds Agree to hold ACEI/ARB due to JOSEFINA and low BP. hold beta blockers for same reason Dose meds/antibiotics for Improved GFR. Avoid nephrotoxins/NSAIDs Glycemic control Further work up/management as per primary team Thanks for allowing me to participate in care of your patient. Will follow patient as needed basis. Please call if any Qs. 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 She feels better at this time shortness of breath is better cough is better she also reported some difficulty in urination earlier. Denies OTC/herbal meds or NSAIDs No recent iodinated contrast exposure. noted episodes of low BP. ROS: Cardiovascular: No chest pain. Pulmonary: No shortness of breath . has cough Gastrointestinal: denies abdominal pain No nausea. No vomiting. Genitourinary: No pain while urinating. Denies blood in urine. All other negative except as mentioned in HPI Physical Examination: General Appearance: Comfortable, in no acute respiratory distress, co-operative . She is obese Vitals reviewed and noted as below Head; Atraumatic, normocephalic ENT: no ulcers no thrush. Tongue is midline. Oropharynx: no rash or ulcers. EYES: Pupils are equal, round and reactive to light accommodation. Eye muscles and extraocular movement intact. Sclera is anicteric. Neck; supple no lymphadenopathy, no thyromegaly or bruit Lungs: Normal respiratory rate/effort. Breath sounds bilateral equal and clear Heart: Normal rate. s1s2 normal. No rub or gallop. Extremities: no edema. No varicose veins Neurological: Patient is alert, awake and oriented to person, place and time. No focal deficit. Strength bilateral appropriate and equal Skin: Warm and dry. Normal turgor. No rash. Palpitation: Normal elasticity for age Abdomen: Abdomen is soft. Bowel sounds +. There is no abdominal tenderness, no guarding/rigidity no organomegaly Psych: normal insight and normal affect/mood MSK: no joint tenderness or swelling. Digits and nails normal, no deformity : kidney or bladder not palpable Labs/imaging reviewed. Past medical history, past surgical history, family history, social history, allergy reviewed and noted as below Family hx: no hx of CKD. Rest non-contributory Workup her CPK level is 72 UA shows trace ketone Objective - Vital Signs/Intake and Output Vital Signs (last 24 hours): Temp Pulse Resp BP Pulse Ox 98.1 F 82 20 114/72 93 L 07/31/17 07:00 07/31/17 07:00 07/31/17 07:00 07/31/17 07:00 07/31/17 07:00 Intake and Output: 07/31/17 07/31/17 06:59 18:59 Intake Total 480 600 Balance 480 600 - Medications Medications: Current Medications Albuterol/Ipratropium (Duoneb 3 Mg/0.5 Mg (3 Ml) Ud) 3 ml IH [id number] [facility] Last Admin: 07/31/17 13:49 Dose: 3 ml Albuterol/Ipratropium (Duoneb 3 Mg/0.5 Mg (3 Ml) Ud) 3 ml IH Q2H PRN PRN Reason: Shortness of Breath Apixaban (Eliquis) 5 mg PO Q12 ALEXI PRN Reason: Protocol Last Admin: 07/31/17 10:58 Dose: 5 mg Benzocaine/Menthol (Cepacol Sore Throat) 1 mercedes MT Q2H PRN PRN Reason: Sore Throat Last Admin: 07/30/17 18:07 Dose: 1 mercedes Ergocalciferol (Drisdol 50,000 Intl Units Cap) 1 cap PO Q7D ALEXI Gabapentin (Neurontin) 400 mg PO Q8 ALEXI PRN Reason: Protocol Last Admin: 07/31/17 13:57 Dose: 400 mg Guaifenesin (Robitussin) 100 mg PO Q4H PRN PRN Reason: Cough Last Admin: 07/30/17 18:33 Dose: 100 mg Meropenem 500 mg/ Sodium (Chloride) 50 mls @ 100 mls/hr IVPB Q8 ALEXI PRN Reason: Protocol Stop: 07/31/17 22:29 Lactobacillus Acidophilus (Bacid Acidophilus) 1 cap PO BID [facility] Last Admin: 07/31/17 10:58 Dose: 1 cap Losartan Potassium (Cozaar) 50 mg PO DAILY [facility] Metoprolol Tartrate (Lopressor) 25 mg PO BID [facility] Last Admin: 07/28/17 18:21 Dose: 25 mg Ondansetron HCl (Zofran Inj) 2 mg IVP Q6H PRN PRN Reason: Nausea/Vomiting Last Admin: 07/29/17 19:59 Dose: 2 mg Oxycodone HCl (Oxycodone Immediate Release Tab) 30 mg PO Q8H PRN PRN Reason: Pain, severe (8-10) Last Admin: 07/31/17 13:57 Dose: 30 mg Pantoprazole Sodium (Protonix Ec Tab) 40 mg PO 0600,1600 [facility] Last Admin: 07/31/17 05:40 Dose: 40 mg Zolpidem Tartrate (Ambien) 5 mg PO HS [facility] PRN Reason: Protocol Last Admin: 07/28/17 23:17 Dose: 5 mg - Labs Labs: 07/31/17 06:30 07/31/17 06:30 PT 14.0 SECONDS (9.4-12.5) H 07/28/17 11:05 INR 1.21 (0.93-1.08) H 07/28/17 11:05 APTT 31.4 Seconds (25.1-36.5) 07/28/17 11:05
[2017-07-31] MEDS ORDERED: Meropenem 500 MG in Sodium Chloride 0.9% 100 ML IVPB SCH (15:50)
[2017-07-31] MEDS: Meropenem 500 MG in Sodium Chloride 0.9% 50 ML IVPB SCH (21:47)
[2017-08-01] MEDS ORDERED: DiphenhydrAMINE 12.5 mg/5 ml LIQ UD (5 ml) PO STA (00:16)
[2017-08-01] MEDS: Albuterol-Ipratrop 3 mg / 0.5 (3 ml) UD IH SCH ×4 (01:09→20:20)
[2017-08-01] MEDS: oxyCODONE 30 mg Immediate Release Tab PO PRN ×3 (06:01→21:59)
[2017-08-01] MEDS: Meropenem 500 MG in Sodium Chloride 0.9% 50 ML IVPB SCH ×3 (06:01→21:58)
[2017-08-01] MEDS: Pantoprazole 40 mg EC Tab PO SCH ×3 (06:03→17:10)
[2017-08-01] MEDS: Lactobacillus Acidophilus 500 MU Cap PO SCH ×2 (09:01→17:16)
[2017-08-01 10:18] LABS: BASO # 0.02 K/mm3 (0.0-2.0); BASO % 0.5 % (0.0-3.0); EOS # 0.2 (0.0-0.7); EOS % 4.3 % (1.5-5.0); GRAN # 1.41 (1.4-6.5); HEMOGLOBIN 9.7 g/dL (12.0-16.0); LYMPH # 1.8 (1.2-3.4); LYMPH % 46.7 % (22.0-35.0); MEAN CELL VOLUME 94.7 fl (80.0-105.0); MEAN CORPUSCULAR HEMOGLOBIN 30.4 pg (25.0-35.0); MEAN CORPUSCULAR HGB CONC 32.1 g/dl (31.0-37.0); MEAN PLATELET VOLUME 9.2 fl (7.0-11.0); MONO # 0.5 (0.1-0.6); MONO % 12.5 % (1.0-6.0); RBC 3.19 10^6/uL (3.5-6.1); RED CELL DISTRIBUTION WIDTH 13.8 % (11.5-14.5); WHITE BLOOD COUNT 3.9 10^3/ul (4.5-11.0)
[2017-08-01 10:36] LABS: ALBUMIN 3.3 g/dL (3.0-4.8); ALT/SGPT 49 U/L (7-56); AST/SGOT 34 U/L (14-36); BLOOD UREA NITROGEN 17 mg/dL (7-21); CALCIUM 9.9 mg/dL (8.4-10.5); GFR AFRICAN-AMERICAN > 60; GFR NON-AFRICAN AMERICAN > 60
--- NOTE | 2017-08-01 15:37 | CP.PCM.PN ---
<Helder Weston - Last Filed: 08/02/17 07:18> Subjective - Date & Time of Evaluation Date of Evaluation: 08/01/17 Time of Evaluation: 07:15 - Subjective Subjective: Patient seen and examined at bedside eating breakfast in no acute distress. Patient states she has no expectorated brown phlegm as she was prior. denies fevers, chills, nausea, vomiting, abdominal pain, chest pain, shortness of breath. Objective - Vital Signs/Intake and Output Vital Signs (last 24 hours): Temp Pulse Resp BP Pulse Ox 97.7 F 88 18 126/80 100 08/01/17 07:30 08/01/17 07:30 08/01/17 07:30 08/01/17 07:30 08/01/17 07:30 Intake and Output: 08/01/17 08/01/17 06:59 18:59 Intake Total 240 640 Balance 240 640 - Medications Medications: Current Medications Albuterol/Ipratropium (Duoneb 3 Mg/0.5 Mg (3 Ml) Ud) 3 ml IH [id number] [facility] Last Admin: 08/01/17 13:10 Dose: 3 ml Albuterol/Ipratropium (Duoneb 3 Mg/0.5 Mg (3 Ml) Ud) 3 ml IH Q2H PRN PRN Reason: Shortness of Breath Apixaban (Eliquis) 5 mg PO Q12 [facility] PRN Reason: Protocol Last Admin: 08/01/17 09:01 Dose: 5 mg Benzocaine/Menthol (Cepacol Sore Throat) 1 mercedes MT Q2H PRN PRN Reason: Sore Throat Last Admin: 07/30/17 18:07 Dose: 1 mercedes Ergocalciferol (Drisdol 50,000 Intl Units Cap) 1 cap PO Q7D [facility] Gabapentin (Neurontin) 400 mg PO Q8 [facility] PRN Reason: Protocol Last Admin: 08/01/17 06:01 Dose: 400 mg Guaifenesin (Robitussin) 100 mg PO Q4H PRN PRN Reason: Cough Last Admin: 07/30/17 18:33 Dose: 100 mg Meropenem 500 mg/ Sodium (Chloride) 50 mls @ 100 mls/hr IVPB Q8 [facility] PRN Reason: Protocol Last Admin: 08/01/17 13:01 Dose: 100 mls/hr Lactobacillus Acidophilus (Bacid Acidophilus) 1 cap PO BID [facility] Last Admin: 08/01/17 09:01 Dose: 1 cap Losartan Potassium (Cozaar) 50 mg PO DAILY [facility] Metoprolol Tartrate (Lopressor) 25 mg PO BID [facility] Last Admin: 07/28/17 18:21 Dose: 25 mg Ondansetron HCl (Zofran Inj) 2 mg IVP Q6H PRN PRN Reason: Nausea/Vomiting Last Admin: 08/01/17 13:24 Dose: 2 mg Oxycodone HCl (Oxycodone Immediate Release Tab) 30 mg PO Q8H PRN PRN Reason: Pain, severe (8-10) Last Admin: 08/01/17 14:41 Dose: 30 mg Pantoprazole Sodium (Protonix Ec Tab) 40 mg PO 0600,1600 [facility] Last Admin: 08/01/17 15:04 Dose: 40 mg Zolpidem Tartrate (Ambien) 5 mg PO HS [facility] PRN Reason: Protocol Last Admin: 07/28/17 23:17 Dose: 5 mg - Labs Labs: 08/01/17 10:10 08/01/17 10:10 PT 14.0 SECONDS (9.4-12.5) H 07/28/17 11:05 INR 1.21 (0.93-1.08) H 07/28/17 11:05 APTT 31.4 Seconds (25.1-36.5) 07/28/17 11:05 - Constitutional Appears: Non-toxic, No Acute Distress - Head Exam Head Exam: ATRAUMATIC, NORMAL INSPECTION, NORMOCEPHALIC - Eye Exam Eye Exam: EOMI, Normal appearance - ENT Exam ENT Exam: Mucous Membranes Moist - Neck Exam Neck Exam: Normal Inspection - Respiratory Exam Respiratory Exam: Clear to Ausculation Bilateral, NORMAL BREATHING PATTERN - Cardiovascular Exam Cardiovascular Exam: REGULAR RHYTHM, +S1, +S2 - GI/Abdominal Exam GI & Abdominal Exam: Soft, Normal Bowel Sounds - Extremities Exam Extremities Exam: Full ROM, Normal Inspection - Back Exam Back Exam: NORMAL INSPECTION - Neurological Exam Neurological Exam: Alert, Awake, CN II-XII Intact - Psychiatric Exam Psychiatric exam: Normal Affect, Normal Mood - Skin Skin Exam: Intact, Normal Color, Warm Assessment and Plan - Assessment and Plan (Free Text) Assessment: 62 year old AA female with with PMH of Protein C deficiency, asthma, HLD, HTN, atrial fibrillation, DVT with IVC filter, previous CVA, and 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 Plan: 1. Bronchitis -rapid flu negative -Sputum ESBL s. aureus and e. coli positive; merrem and vanc started -Infectious disease consulted -Chest xray: trace linear atelectasis -currently afebrile -no leukocytosis -Oxygen as needed -V/Q scan low probability for PE -duonebs -cepachol -robitussin 2. JOSEFINA-likely prerenal -resolved 3. Diarrhea -likely secondary to abx use -lactobacillus added -C diff pending 4. Headache -no focal deficits -tylenol given 5. History of Protein C Deficiency -Continue home eliquis 6. History of HTN -currently 126/80 -continue hold losartan and metroprolol -Monitor with scheduled VS -Heart Healthy Diet 7. History of Atrial Fibrillation -Continue home eliquis Prophylaxis Protonix Eliquis <Kathe Garcia B - Last Filed: 08/02/17 12:06> Objective - Vital Signs/Intake and Output Vital Signs (last 24 hours): Temp Pulse Resp BP Pulse Ox 97.9 F 76 18 95/54 L 97 08/02/17 07:30 08/02/17 07:30 08/02/17 07:30 08/02/17 07:30 08/02/17 07:30 Intake and Output: 08/02/17 08/02/17 06:59 18:59 Intake Total 780 Balance 780 - Medications Medications: Current Medications Albuterol/Ipratropium (Duoneb 3 Mg/0.5 Mg (3 Ml) Ud) 3 ml IH [id number] [facility] Last Admin: 08/02/17 07:24 Dose: 3 ml Albuterol/Ipratropium (Duoneb 3 Mg/0.5 Mg (3 Ml) Ud) 3 ml IH Q2H PRN PRN Reason: Shortness of Breath Apixaban (Eliquis) 5 mg PO Q12 [facility] PRN Reason: Protocol Last Admin: 08/02/17 09:12 Dose: 5 mg Benzocaine/Menthol (Cepacol Sore Throat) 1 mercedes MT Q2H PRN PRN Reason: Sore Throat Last Admin: 07/30/17 18:07 Dose: 1 mercedes Ergocalciferol (Drisdol 50,000 Intl Units Cap) 1 cap PO Q7D [facility] Gabapentin (Neurontin) 400 mg PO Q8 [facility] PRN Reason: Protocol Last Admin: 08/01/17 21:58 Dose: 400 mg Guaifenesin (Robitussin) 100 mg PO Q4H PRN PRN Reason: Cough Last Admin: 08/02/17 09:08 Dose: 100 mg Meropenem 500 mg/ Sodium (Chloride) 50 mls @ 100 mls/hr IVPB Q8 [facility] PRN Reason: Protocol Last Admin: 08/02/17 06:15 Dose: 100 mls/hr Vancomycin HCl (Vancomycin 1gm) 1 gm in 250 mls @ 167 mls/hr IVPB DAILY [facility] PRN Reason: Protocol Last Admin: 08/02/17 09:09 Dose: 167 mls/hr Lactobacillus Acidophilus (Bacid Acidophilus) 1 cap PO BID [facility] Last Admin: 08/02/17 09:11 Dose: 1 cap Losartan Potassium (Cozaar) 50 mg PO DAILY [facility] Metoprolol Tartrate (Lopressor) 25 mg PO BID [facility] Last Admin: 07/28/17 18:21 Dose: 25 mg Ondansetron HCl (Zofran Inj) 2 mg IVP Q6H PRN PRN Reason: Nausea/Vomiting Last Admin: 08/02/17 09:08 Dose: 2 mg Oxycodone HCl (Oxycodone Immediate Release Tab) 30 mg PO Q8H PRN PRN Reason: Pain, severe (8-10) Last Admin: 08/02/17 06:22 Dose: 30 mg Pantoprazole Sodium (Protonix Ec Tab) 40 mg PO 0600,1600 [facility] Last Admin: 08/02/17 06:15 Dose: 40 mg Zolpidem Tartrate (Ambien) 5 mg PO HS [facility] PRN Reason: Protocol Last Admin: 08/02/17 00:19 Dose: 5 mg - Labs Labs: 08/02/17 08:24 08/02/17 08:24 PT 14.0 SECONDS (9.4-12.5) H 07/28/17 11:05 INR 1.21 (0.93-1.08) H 07/28/17 11:05 APTT 31.4 Seconds (25.1-36.5) 07/28/17 11:05 Attending/Attestation - Attestation I have personally seen and examined this patient.: Yes I have fully participated in the care of the patient.: Yes I have reviewed all pertinent clinical information, including history, physical exam and plan: Yes Notes (Text): I have seen and examined the patient at bedside. 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 Flu negative. V/Q scan show low probability scan. CT chest revealed no consolidation. Blood and urine culture negative. Procal elevated and is trending down. Sputum culture revealed ESBL and MSSA. SAhe is on meropenem. Patient feels better today and denies any complaints other than persistent cough with brownish phlegm. Continue levaquin. Patients diarrhea and vomiting has completely resolved. Stool for cdiff was not even sent. Upon admission, patient reported urinary retention and found to have JOSEFINA. Creatinine was 2.2 and today it has improved to 0.7. JOSEFINA was most likely due to pre renal etiology. Nephro consult appreciated. Patient has been passing urine in the bathroom without any problem. Continue eliquis for atrial fibrillation. Upon discharge patient will follow up with Dr Cohen. Dr Kathe Garcia
--- NOTE | 2017-08-01 15:53 | CP.PCM.CON ---
History of Present Illness - History of Present Illness History of Present Illness: 62 year old female with PMH of HTN, history of transient ischemic attack, dyslipidemia, hypercoagulable state with Protein C deficiency, chronic back pain , S/P hysterectomy, S/P gastric bypass surgery, history of right breast abscess was initially admitted in [facility] because of shortness of breath and cough. She was being treated with antibiotics, bronchodilators and was doing well and was about to be discharged, when the sputum cultures showed ESBL E. coli and MSSA. The patient is feeling better although still having some chest pain on coughing but much better. She denies fever or chills, no headache or dizziness, no nausea or vomiting, no chest pain, no SOB currently, no abdominal pain, no sore throat, no diarrhea, on dysuria. Infectious Diseases consult is requested to further evaluate and manage. Review of Systems - Review of Systems All systems: reviewed and no additional remarkable complaints except (as per HPI ) Past Patient History - Infectious Disease Hx of Infectious Diseases: None - Tetanus Immunizations Tetanus Immunization: Unknown - Past Medical History & Family History Past Medical History?: Yes - Past Social History Smoking Status: Never Smoked - CARDIAC Hx Cardiac Disorders: Yes Hx Hypertension: Yes Hx Peripheral Vascular Disease: Yes (DVT) - PULMONARY Hx Respiratory Disorders: Yes Hx Asthma: Yes - NEUROLOGICAL Hx Neurological Disorder: Yes HX Cerebrovascular Accident: Yes Hx Transient Ischemic Attacks (TIA): Yes - HEENT Hx HEENT Problems: Yes Hx Blind: Yes (RIGHT EYE) - RENAL Hx Renal Failure: Yes - ENDOCRINE/METABOLIC Hx Endocrine Disorders: No - HEMATOLOGICAL/ONCOLOGICAL Hx Blood Disorders: Yes (COAGULOPATHY) Hx Anemia: Yes (IRON DEFICIENCY ANEMIA) - INTEGUMENTARY Hx Dermatological Problems: Yes Other/Comment: 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 - MUSCULOSKELETAL/RHEUMATOLOGICAL Hx Musculoskeletal Disorders: Yes (SCIATICA) Hx Arthritis: Yes Hx Back Pain: Yes Hx Falls: Yes Hx Unsteady Gait: Yes (CANE) - GASTROINTESTINAL Hx Gastrointestinal Disorders: Yes Hx Gall Bladder Disease: Yes Other/Comment: Gastric Bypass Surgery - GENITOURINARY/GYNECOLOGICAL Hx Genitourinary Disorders: Yes Hx Urinary Tract Infection: Yes - PSYCHIATRIC Hx Psychophysiologic Disorder: Yes (INSOMNIA) Hx Substance Use: No - SURGICAL HISTORY Hx Surgeries: Yes (IVC FILTER) Hx Gastric Bypass Surgery: Yes Hx Hysterectomy: Yes Hx Mastectomy: Yes (B/L Mastectomy) Other/Comment: b/l middle fingers amputated - ANESTHESIA Hx Anesthesia: Yes Hx Anesthesia Reactions: No Hx Malignant Hyperthermia: No Meds Home Medications: Home Medication List Medication Instructions Recorded Confirmed Type Benzocaine/Menthol [Cepacol Sore 1 mercedes MT Q2H PRN #30 mercedes 07/31/17 Rx Throat] Levofloxacin [Levaquin] 750 mg PO DAILY #7 tablet 07/31/17 Rx Allergies/Adverse Reactions: Allergies Allergy/AdvReac Type Severity Reaction Status Date / Time Penicillins Allergy ANGIOEDEMA/SHORTNESS Verified 07/28/17 18:24 OF BREATH - Medications Medications: Current Medications Albuterol/Ipratropium (Duoneb 3 Mg/0.5 Mg (3 Ml) Ud) 3 ml IH [id number] [facility] Last Admin: 07/31/17 19:27 Dose: 3 ml Albuterol/Ipratropium (Duoneb 3 Mg/0.5 Mg (3 Ml) Ud) 3 ml IH Q2H PRN PRN Reason: Shortness of Breath Apixaban (Eliquis) 5 mg PO Q12 [facility] PRN Reason: Protocol Last Admin: 07/31/17 10:58 Dose: 5 mg Benzocaine/Menthol (Cepacol Sore Throat) 1 mercedes MT Q2H PRN PRN Reason: Sore Throat Last Admin: 07/30/17 18:07 Dose: 1 mercedes Ergocalciferol (Drisdol 50,000 Intl Units Cap) 1 cap PO Q7D [facility] Gabapentin (Neurontin) 400 mg PO Q8 [facility] PRN Reason: Protocol Last Admin: 07/31/17 13:57 Dose: 400 mg Guaifenesin (Robitussin) 100 mg PO Q4H PRN PRN Reason: Cough Last Admin: 07/30/17 18:33 Dose: 100 mg Meropenem 500 mg/ Sodium (Chloride) 50 mls @ 100 mls/hr IVPB Q8 [facility] PRN Reason: Protocol Lactobacillus Acidophilus (Bacid Acidophilus) 1 cap PO BID [facility] Last Admin: 07/31/17 16:53 Dose: 1 cap Losartan Potassium (Cozaar) 50 mg PO DAILY [facility] Metoprolol Tartrate (Lopressor) 25 mg PO BID [facility] Last Admin: 07/28/17 18:21 Dose: 25 mg Ondansetron HCl (Zofran Inj) 2 mg IVP Q6H PRN PRN Reason: Nausea/Vomiting Last Admin: 07/31/17 17:41 Dose: 2 mg Oxycodone HCl (Oxycodone Immediate Release Tab) 30 mg PO Q8H PRN PRN Reason: Pain, severe (8-10) Last Admin: 07/31/17 13:57 Dose: 30 mg Pantoprazole Sodium (Protonix Ec Tab) 40 mg PO 0600,1600 [facility] Last Admin: 07/31/17 05:40 Dose: 40 mg Zolpidem Tartrate (Ambien) 5 mg PO HS [facility] PRN Reason: Protocol Last Admin: 07/28/17 23:17 Dose: 5 mg Physical Exam - Constitutional Appears: Non-toxic, Chronically Ill - Head Exam Head Exam: NORMAL INSPECTION - ENT Exam ENT Exam: Mucous Membranes Moist - Neck Exam Neck exam: Negative for: Meningismus - Respiratory Exam Respiratory Exam: Decreased Breath Sounds - Cardiovascular Exam Cardiovascular Exam: +S1, +S2 - GI/Abdominal Exam GI & Abdominal Exam: Soft. absent: Tenderness Results - Vital Signs Recent Vital Signs: Last Vital Signs Temp 98.6 F 07/31/17 16:00 Pulse 90 07/31/17 16:00 Resp 20 07/31/17 16:00 BP 106/62 07/31/17 16:00 Pulse Ox 99 07/31/17 16:00 - Labs Result Diagrams: 08/01/17 10:10 08/01/17 10:10 Labs: Laboratory Results - last 24 hr 07/31/17 07/31/17 07/31/17 06:30 06:30 11:15 WBC 4.9 RBC 3.01 L Hgb 9.2 L Hct 28.9 L MCV 96.0 MCH 30.6 MCHC 31.8 RDW 14.2 Plt Count 158 MPV 9.6 Gran % 44.4 L Lymph % (Auto) 37.4 H [place] % (Auto) 14.4 H Eos % (Auto) 3.6 Baso % (Auto) 0.2 Gran # 2.19 Lymph # (Auto) 1.9 [place] # (Auto) 0.7 H Eos # (Auto) 0.2 Baso # (Auto) 0.01 Sodium 141 Potassium 4.8 Chloride 112 H Carbon Dioxide 21 Anion Gap 13 BUN 21 Creatinine 1.0 Est GFR ( Amer) > 60 Est GFR (Non-Af Amer) 56 Random Glucose 77 Calcium 9.4 Total Bilirubin 0.5 AST 54 H D ALT 63 H Alkaline Phosphatase 67 Total Protein 5.9 Albumin 3.0 Globulin 2.9 Albumin/Globulin Ratio 1.0 L Ur Random Creatinine 29 Ur Random Sodium 95 Ur Random Urea Nitrogn 257 Assessment & Plan - Assessment and Plan (Free Text) Plan: Assessment consider respiratory tract infection with MSSA and ESBL E. 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 faecalis and Klebsiella history of acute rhabdomyolysis HTN history of transient ischemic attack dyslipidemia hypercoagulable state with Protein C deficiency chronic back pain S/P hysterectomy S/P gastric bypass surgery Plan started patient on Merrem and will monitor clinically
[2017-08-01] MEDS: Vancomycin 1gm in NS 250ml 1 GM/250 ML BAG IVPB SCH (17:16)
[2017-08-01] MEDS: guaiFENesin 100 mg/5 ml Syrup UD PO PRN (19:56)
[2017-08-02] MEDS: Albuterol-Ipratrop 3 mg / 0.5 (3 ml) UD IH SCH ×4 (02:50→20:52)
[2017-08-02] MEDS: Pantoprazole 40 mg EC Tab PO SCH ×2 (06:15→16:37)
[2017-08-02] MEDS: Meropenem 500 MG in Sodium Chloride 0.9% 50 ML IVPB SCH ×3 (06:15→21:59)
[2017-08-02] MEDS: oxyCODONE 30 mg Immediate Release Tab PO PRN ×3 (06:22→21:17)
--- NOTE | 2017-08-02 07:21 | CP.PCM.PN ---
<Helder Weston - Last Filed: 08/02/17 12:07> Subjective - Date & Time of Evaluation Date of Evaluation: 08/02/17 Time of Evaluation: 07:00 - Subjective Subjective: Patient seen and examined at bedside in no acute distress. States she starting bringing up brown colored sputum once again. Admits to nausea states she normally does when she is on antibiotics. Denies abdominal pain, chest pain, diarrhea, fevers, chills, shortness of breath. Objective - Vital Signs/Intake and Output Vital Signs (last 24 hours): Temp Pulse Resp BP Pulse Ox 97.9 F 82 20 107/76 99 08/02/17 00:00 08/02/17 00:00 08/02/17 00:00 08/02/17 00:00 08/02/17 00:00 Intake and Output: 08/02/17 08/02/17 06:59 18:59 Intake Total 780 Balance 780 - Medications Medications: Current Medications Albuterol/Ipratropium (Duoneb 3 Mg/0.5 Mg (3 Ml) Ud) 3 ml IH [id number] [facility] Last Admin: 08/02/17 02:50 Dose: 3 ml Albuterol/Ipratropium (Duoneb 3 Mg/0.5 Mg (3 Ml) Ud) 3 ml IH Q2H PRN PRN Reason: Shortness of Breath Apixaban (Eliquis) 5 mg PO Q12 [facility] PRN Reason: Protocol Last Admin: 08/01/17 21:59 Dose: 5 mg Benzocaine/Menthol (Cepacol Sore Throat) 1 mercedes MT Q2H PRN PRN Reason: Sore Throat Last Admin: 07/30/17 18:07 Dose: 1 mercedes Ergocalciferol (Drisdol 50,000 Intl Units Cap) 1 cap PO Q7D [facility] Gabapentin (Neurontin) 400 mg PO Q8 [facility] PRN Reason: Protocol Last Admin: 08/01/17 21:58 Dose: 400 mg Guaifenesin (Robitussin) 100 mg PO Q4H PRN PRN Reason: Cough Last Admin: 08/01/17 19:56 Dose: 100 mg Meropenem 500 mg/ Sodium (Chloride) 50 mls @ 100 mls/hr IVPB Q8 [facility] PRN Reason: Protocol Last Admin: 08/02/17 06:15 Dose: 100 mls/hr Vancomycin HCl (Vancomycin 1gm) 1 gm in 250 mls @ 167 mls/hr IVPB DAILY [facility] PRN Reason: Protocol Last Admin: 08/01/17 17:16 Dose: 167 mls/hr Lactobacillus Acidophilus (Bacid Acidophilus) 1 cap PO BID [facility] Last Admin: 08/01/17 17:16 Dose: 1 cap Losartan Potassium (Cozaar) 50 mg PO DAILY [facility] Metoprolol Tartrate (Lopressor) 25 mg PO BID [facility] Last Admin: 07/28/17 18:21 Dose: 25 mg Ondansetron HCl (Zofran Inj) 2 mg IVP Q6H PRN PRN Reason: Nausea/Vomiting Last Admin: 08/01/17 13:24 Dose: 2 mg Oxycodone HCl (Oxycodone Immediate Release Tab) 30 mg PO Q8H PRN PRN Reason: Pain, severe (8-10) Last Admin: 08/02/17 06:22 Dose: 30 mg Pantoprazole Sodium (Protonix Ec Tab) 40 mg PO 0600,1600 [facility] Last Admin: 08/02/17 06:15 Dose: 40 mg Zolpidem Tartrate (Ambien) 5 mg PO HS [facility] PRN Reason: Protocol Last Admin: 08/02/17 00:19 Dose: 5 mg - Labs Labs: 08/01/17 10:10 08/01/17 10:10 PT 14.0 SECONDS (9.4-12.5) H 07/28/17 11:05 INR 1.21 (0.93-1.08) H 07/28/17 11:05 APTT 31.4 Seconds (25.1-36.5) 07/28/17 11:05 - Constitutional Appears: Non-toxic, No Acute Distress - Head Exam Head Exam: ATRAUMATIC, NORMAL INSPECTION, NORMOCEPHALIC - Eye Exam Eye Exam: EOMI, Normal appearance - ENT Exam ENT Exam: Mucous Membranes Moist - Neck Exam Neck Exam: Normal Inspection - Respiratory Exam Respiratory Exam: Clear to Ausculation Bilateral, NORMAL BREATHING PATTERN. absent: Accessory Muscle Use, Decreased Breath Sounds, Rales, Rhonchi, Wheezes, Respiratory Distress, Stridor - Cardiovascular Exam Cardiovascular Exam: REGULAR RHYTHM, +S1, +S2 - GI/Abdominal Exam GI & Abdominal Exam: Soft, Normal Bowel Sounds - Back Exam Back Exam: NORMAL INSPECTION - Neurological Exam Neurological Exam: Alert, Awake, Oriented x3 - Psychiatric Exam Psychiatric exam: Normal Affect, Normal Mood - Skin Skin Exam: Intact, Normal Color, Warm Assessment and Plan - Assessment and Plan (Free Text) Assessment: 62 year old AA female with with PMH of Protein C deficiency, asthma, HLD, HTN, atrial fibrillation, DVT with IVC filter, previous CVA, and 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 Plan: 1. Bronchitis -rapid flu negative -Sputum ESBL s. aureus and e. coli positive; merrem and vanc started. Switch to PO abx pending sensitivity of cultures. -Infectious disease consulted -Chest xray: trace linear atelectasis, repeat chest x-ray ordered -remains afebrile -no leukocytosis -continue duonebs -continue cepachol -continue robitussin 2. JOSEFINA-likely prerenal -resolved 3. Diarrhea -likely secondary to abx use -lactobacillus added -C diff pending 4. Headache -no focal deficits -tylenol given 5. History of Protein C Deficiency -Continue home eliquis 6. History of HTN -currently 126/80 -continue hold losartan and metroprolol -Monitor with scheduled VS -Heart Healthy Diet 7. History of Atrial Fibrillation -Continue home eliquis Prophylaxis Protonix Eliquis <Kathe Garcia B - Last Filed: 08/02/17 14:25> Objective - Vital Signs/Intake and Output Vital Signs (last 24 hours): Temp Pulse Resp BP Pulse Ox 97.9 F 76 18 95/54 L 97 08/02/17 07:30 08/02/17 07:30 08/02/17 07:30 08/02/17 07:30 08/02/17 07:30 Intake and Output: 08/02/17 08/02/17 06:59 18:59 Intake Total 780 Balance 780 - Medications Medications: Current Medications Albuterol/Ipratropium (Duoneb 3 Mg/0.5 Mg (3 Ml) Ud) 3 ml IH [id number] [facility] Last Admin: 08/02/17 13:18 Dose: 3 ml Albuterol/Ipratropium (Duoneb 3 Mg/0.5 Mg (3 Ml) Ud) 3 ml IH Q2H PRN PRN Reason: Shortness of Breath Apixaban (Eliquis) 5 mg PO Q12 [facility] PRN Reason: Protocol Last Admin: 08/02/17 09:12 Dose: 5 mg Benzocaine/Menthol (Cepacol Sore Throat) 1 mercedes MT Q2H PRN PRN Reason: Sore Throat Last Admin: 07/30/17 18:07 Dose: 1 mercedes Ergocalciferol (Drisdol 50,000 Intl Units Cap) 1 cap PO Q7D [facility] Gabapentin (Neurontin) 400 mg PO Q8 [facility] PRN Reason: Protocol Last Admin: 08/02/17 13:27 Dose: 400 mg Guaifenesin (Robitussin) 100 mg PO Q4H PRN PRN Reason: Cough Last Admin: 08/02/17 09:08 Dose: 100 mg Meropenem 500 mg/ Sodium (Chloride) 50 mls @ 100 mls/hr IVPB Q8 [facility] PRN Reason: Protocol Last Admin: 08/02/17 13:13 Dose: 100 mls/hr Vancomycin HCl (Vancomycin 1gm) 1 gm in 250 mls @ 167 mls/hr IVPB DAILY [facility] PRN Reason: Protocol Last Admin: 08/02/17 09:09 Dose: 167 mls/hr Lactobacillus Acidophilus (Bacid Acidophilus) 1 cap PO BID [facility] Last Admin: 08/02/17 09:11 Dose: 1 cap Losartan Potassium (Cozaar) 50 mg PO DAILY [facility] Metoprolol Tartrate (Lopressor) 25 mg PO BID [facility] Last Admin: 07/28/17 18:21 Dose: 25 mg Ondansetron HCl (Zofran Inj) 2 mg IVP Q6H PRN PRN Reason: Nausea/Vomiting Last Admin: 08/02/17 09:08 Dose: 2 mg Oxycodone HCl (Oxycodone Immediate Release Tab) 30 mg PO Q8H PRN PRN Reason: Pain, severe (8-10) Last Admin: 08/02/17 13:27 Dose: 30 mg Pantoprazole Sodium (Protonix Ec Tab) 40 mg PO 0600,1600 [facility] Last Admin: 08/02/17 06:15 Dose: 40 mg Zolpidem Tartrate (Ambien) 5 mg PO HS [facility] PRN Reason: Protocol Last Admin: 08/02/17 00:19 Dose: 5 mg - Labs Labs: 08/02/17 08:24 08/02/17 08:24 PT 14.0 SECONDS (9.4-12.5) H 07/28/17 11:05 INR 1.21 (0.93-1.08) H 07/28/17 11:05 APTT 31.4 Seconds (25.1-36.5) 07/28/17 11:05 Attending/Attestation - Attestation I have personally seen and examined this patient.: Yes I have fully participated in the care of the patient.: Yes I have reviewed all pertinent clinical information, including history, physical exam and plan: Yes Notes (Text): I have seen and examined the patient at bedside. 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 Flu negative. V/Q scan show low probability scan. CT chest revealed no consolidation. Blood and urine culture negative. Procal elevated and is trending down. Sputum culture revealed ESBL and MSSA. She is on meropenem. Patient feels better today and denies any complaints other than mild cough with brownish phlegm. Discussed with Dr Barksdale who recommends 3-5 days of therapy. Continue eliquis for atrial fibrillation. Upon discharge patient will follow up with Dr Cohen. Dr Kathe Garcia
[2017-08-02 08:36] LABS: BASO # 0.04 K/mm3 (0.0-2.0); EOS # 0.2 (0.0-0.7); GRAN # 1.3 (1.4-6.5); GRAN % 30.9 % (50.0-68.0); HEMOGLOBIN 9.4 g/dL (12.0-16.0); LYMPH # 2.2 (1.2-3.4); LYMPH % 53.3 % (22.0-35.0); MEAN CELL VOLUME 94.8 fl (80.0-105.0); MEAN CORPUSCULAR HEMOGLOBIN 30.3 pg (25.0-35.0); MEAN PLATELET VOLUME 9.3 fl (7.0-11.0); MONO # 0.4 (0.1-0.6); MONO % 9.8 % (1.0-6.0); RBC 3.1 10^6/uL (3.5-6.1); WHITE BLOOD COUNT 4.2 10^3/ul (4.5-11.0)
[2017-08-02] MEDS: guaiFENesin 100 mg/5 ml Syrup UD PO PRN (09:08)
[2017-08-02] MEDS: Vancomycin 1gm in NS 250ml 1 GM/250 ML BAG IVPB SCH (09:09)
[2017-08-02] MEDS: Lactobacillus Acidophilus 500 MU Cap PO SCH ×3 (09:11→16:37)
[2017-08-02 09:24] LABS: ALBUMIN 3.1 g/dL (3.0-4.8); ALT/SGPT 45 U/L (7-56); AST/SGOT 27 U/L (14-36); BLOOD UREA NITROGEN 16 mg/dL (7-21); CALCIUM 9.5 mg/dL (8.4-10.5); GFR AFRICAN-AMERICAN > 60; GFR NON-AFRICAN AMERICAN > 60
--- NOTE | 2017-08-02 10:42 | RAD ---
HISTORY: r/o pneumonia COMPARISON: 07/28/2017 TECHNIQUE: Chest PA and lateral FINDINGS: LUNGS: No active pulmonary disease. PLEURA: No significant pleural effusion identified. No pneumothorax apparent. CARDIOVASCULAR: Normal. OSSEOUS STRUCTURES: No significant abnormalities. VISUALIZED UPPER ABDOMEN: Normal. OTHER FINDINGS: None. IMPRESSION: No active disease.
--- NOTE | 2017-08-02 13:36 | CP.PCM.PN ---
Subjective - Date & Time of Evaluation Date of Evaluation: 08/02/17 Time of Evaluation: 11:40 - Subjective Subjective: Resting comfortably in bed but still with cough with some phlegm, no fevers. Objective - Vital Signs/Intake and Output Vital Signs (last 24 hours): Temp Pulse Resp BP Pulse Ox 97.9 F 76 18 95/54 L 97 08/02/17 07:30 08/02/17 07:30 08/02/17 07:30 08/02/17 07:30 08/02/17 07:30 Intake and Output: 08/02/17 08/02/17 06:59 18:59 Intake Total 780 Balance 780 - Medications Medications: Current Medications Albuterol/Ipratropium (Duoneb 3 Mg/0.5 Mg (3 Ml) Ud) 3 ml IH [id number] Last Admin: 08/02/17 13:18 Dose: 3 ml Albuterol/Ipratropium (Duoneb 3 Mg/0.5 Mg (3 Ml) Ud) 3 ml IH Q2H PRN PRN Reason: Shortness of Breath Apixaban (Eliquis) 5 mg PO Q12 ALEXI PRN Reason: Protocol Last Admin: 08/02/17 09:12 Dose: 5 mg Benzocaine/Menthol (Cepacol Sore Throat) 1 mercedes MT Q2H PRN PRN Reason: Sore Throat Last Admin: 07/30/17 18:07 Dose: 1 mercedes Ergocalciferol (Drisdol 50,000 Intl Units Cap) 1 cap PO Q7D ALEXI Gabapentin (Neurontin) 400 mg PO Q8 ALEXI PRN Reason: Protocol Last Admin: 08/02/17 13:27 Dose: 400 mg Guaifenesin (Robitussin) 100 mg PO Q4H PRN PRN Reason: Cough Last Admin: 08/02/17 09:08 Dose: 100 mg Meropenem 500 mg/ Sodium (Chloride) 50 mls @ 100 mls/hr IVPB Q8 ALEXI PRN Reason: Protocol Last Admin: 08/02/17 13:13 Dose: 100 mls/hr Vancomycin HCl (Vancomycin 1gm) 1 gm in 250 mls @ 167 mls/hr IVPB DAILY [facility] PRN Reason: Protocol Last Admin: 08/02/17 09:09 Dose: 167 mls/hr Lactobacillus Acidophilus (Bacid Acidophilus) 1 cap PO BID [facility] Last Admin: 08/02/17 09:11 Dose: 1 cap Losartan Potassium (Cozaar) 50 mg PO DAILY [facility] Metoprolol Tartrate (Lopressor) 25 mg PO BID [facility] Last Admin: 07/28/17 18:21 Dose: 25 mg Ondansetron HCl (Zofran Inj) 2 mg IVP Q6H PRN PRN Reason: Nausea/Vomiting Last Admin: 08/02/17 09:08 Dose: 2 mg Oxycodone HCl (Oxycodone Immediate Release Tab) 30 mg PO Q8H PRN PRN Reason: Pain, severe (8-10) Last Admin: 08/02/17 13:27 Dose: 30 mg Pantoprazole Sodium (Protonix Ec Tab) 40 mg PO 0600,1600 [facility] Last Admin: 08/02/17 06:15 Dose: 40 mg Zolpidem Tartrate (Ambien) 5 mg PO HS [facility] PRN Reason: Protocol Last Admin: 08/02/17 00:19 Dose: 5 mg - Labs Labs: 08/02/17 08:24 08/02/17 08:24 PT 14.0 SECONDS (9.4-12.5) H 07/28/17 11:05 INR 1.21 (0.93-1.08) H 07/28/17 11:05 APTT 31.4 Seconds (25.1-36.5) 07/28/17 11:05 - Constitutional Appears: Non-toxic, Chronically Ill - Head Exam Head Exam: NORMAL INSPECTION - Neck Exam Neck Exam: absent: Meningismus - Respiratory Exam Respiratory Exam: Decreased Breath Sounds - Cardiovascular Exam Cardiovascular Exam: +S1, +S2 - GI/Abdominal Exam GI & Abdominal Exam: Soft. absent: Tenderness Assessment and Plan - Assessment and Plan (Free Text) Plan: Assessment consider respiratory tract infection with MSSA and ESBL E. 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 faecalis and Klebsiella history of acute rhabdomyolysis HTN history of transient ischemic attack dyslipidemia hypercoagulable state with Protein C deficiency chronic back pain S/P hysterectomy S/P gastric bypass surgery Plan continue Merrem day 2 - CXR does not show pneumonia - complete 3-5 days of therapy
[2017-08-03] MEDS: guaiFENesin 100 mg/5 ml Syrup UD PO PRN ×2 (01:52→20:03)
[2017-08-03] MEDS: Albuterol-Ipratrop 3 mg / 0.5 (3 ml) UD IH SCH ×4 (04:05→21:30)
[2017-08-03] MEDS: Pantoprazole 40 mg EC Tab PO SCH (05:17)
[2017-08-03] MEDS: Meropenem 500 MG in Sodium Chloride 0.9% 50 ML IVPB SCH ×3 (05:18→21:22)
[2017-08-03] MEDS: oxyCODONE 30 mg Immediate Release Tab PO PRN ×3 (05:25→21:21)
[2017-08-03 08:40] LABS: BASO # 0.04 K/mm3 (0.0-2.0); BASO % 0.9 % (0.0-3.0); EOS # 0.2 (0.0-0.7); EOS % 5.3 % (1.5-5.0); GRAN # 1.83 (1.4-6.5); GRAN % 41.9 % (50.0-68.0); HEMOGLOBIN 10.2 g/dL (12.0-16.0); LYMPH # 1.9 (1.2-3.4); LYMPH % 42.3 % (22.0-35.0); MEAN CELL VOLUME 95.8 fl (80.0-105.0); MEAN CORPUSCULAR HEMOGLOBIN 30.3 pg (25.0-35.0); MEAN CORPUSCULAR HGB CONC 31.6 g/dl (31.0-37.0); MONO # 0.4 (0.1-0.6); MONO % 9.6 % (1.0-6.0); RBC 3.37 10^6/uL (3.5-6.1); RED CELL DISTRIBUTION WIDTH 13.8 % (11.5-14.5); WHITE BLOOD COUNT 4.4 10^3/ul (4.5-11.0)
[2017-08-03 08:56] LABS: ALBUMIN 3.3 g/dL (3.0-4.8); ALT/SGPT 37 U/L (7-56); AST/SGOT 32 U/L (14-36); BLOOD UREA NITROGEN 15 mg/dL (7-21); CALCIUM 9.8 mg/dL (8.4-10.5); GFR AFRICAN-AMERICAN > 60; GFR NON-AFRICAN AMERICAN > 60
[2017-08-03] MEDS: Lactobacillus Acidophilus 500 MU Cap PO SCH ×2 (10:55→17:59)
[2017-08-03] MEDS: Vancomycin 1gm in NS 250ml 1 GM/250 ML BAG IVPB SCH (10:56)
--- NOTE | 2017-08-03 12:37 | CP.PCM.PN ---
<Mariusz Martinez - Last Filed: 08/03/17 12:38> Subjective - Date & Time of Evaluation Date of Evaluation: 08/03/17 Time of Evaluation: 06:00 - Subjective Subjective: Patient seen and evaluated bedside. No acute issues overnight, patient states her throat is still a little sore. No additional complaints at this time. Denies any chest pain or shortness of breath. Objective - Vital Signs/Intake and Output Vital Signs (last 24 hours): Temp Pulse Resp BP Pulse Ox 98.2 F 76 18 140/90 100 08/03/17 08:10 08/03/17 10:55 08/03/17 08:10 08/03/17 10:55 08/03/17 08:10 Intake and Output: 08/03/17 08/03/17 06:59 18:59 Intake Total 1979 Balance 1979 - Medications Medications: Current Medications Acetaminophen (Tylenol 325mg Tab) 650 mg PO Q6H PRN PRN Reason: Pain, severe (8-10) Albuterol/Ipratropium (Duoneb 3 Mg/0.5 Mg (3 Ml) Ud) 3 ml IH [id number] ALEXI Last Admin: 08/03/17 07:31 Dose: 3 ml Albuterol/Ipratropium (Duoneb 3 Mg/0.5 Mg (3 Ml) Ud) 3 ml IH Q2H PRN PRN Reason: Shortness of Breath Apixaban (Eliquis) 5 mg PO Q12 ALEXI PRN Reason: Protocol Last Admin: 08/03/17 10:55 Dose: 5 mg Benzocaine/Menthol (Cepacol Sore Throat) 1 mercedes MT Q2H PRN PRN Reason: Sore Throat Last Admin: 07/30/17 18:07 Dose: 1 mercedes Ergocalciferol (Drisdol 50,000 Intl Units Cap) 1 cap PO Q7D ALEXI Gabapentin (Neurontin) 400 mg PO Q8 ALEXI PRN Reason: Protocol Last Admin: 08/03/17 05:17 Dose: 400 mg Guaifenesin (Robitussin) 100 mg PO Q4H PRN PRN Reason: Cough Last Admin: 08/03/17 01:52 Dose: 100 mg Meropenem 500 mg/ Sodium (Chloride) 50 mls @ 100 mls/hr IVPB Q8 ALEXI PRN Reason: Protocol Last Admin: 08/03/17 05:18 Dose: 100 mls/hr Vancomycin HCl (Vancomycin 1gm) 1 gm in 250 mls @ 167 mls/hr IVPB DAILY [facility] PRN Reason: Protocol Last Admin: 08/03/17 10:56 Dose: 167 mls/hr Lactobacillus Acidophilus (Bacid Acidophilus) 1 cap PO BID [facility] Last Admin: 08/03/17 10:55 Dose: 1 cap Losartan Potassium (Cozaar) 50 mg PO DAILY [facility] Last Admin: 08/03/17 10:55 Dose: 50 mg Metoprolol Tartrate (Lopressor) 25 mg PO BID [facility] Last Admin: 07/28/17 18:21 Dose: 25 mg Ondansetron HCl (Zofran Inj) 2 mg IVP Q6H PRN PRN Reason: Nausea/Vomiting Last Admin: 08/02/17 09:08 Dose: 2 mg Oxycodone HCl (Oxycodone Immediate Release Tab) 30 mg PO Q8H PRN PRN Reason: Pain, severe (8-10) Last Admin: 08/03/17 05:25 Dose: 30 mg Pantoprazole Sodium (Protonix Ec Tab) 40 mg PO 0600,1600 [facility] Last Admin: 08/03/17 05:17 Dose: 40 mg Zolpidem Tartrate (Ambien) 5 mg PO HS [facility] PRN Reason: Protocol Last Admin: 08/02/17 21:59 Dose: 5 mg - Labs Labs: 08/03/17 08:20 08/03/17 08:20 PT 14.0 SECONDS (9.4-12.5) H 07/28/17 11:05 INR 1.21 (0.93-1.08) H 07/28/17 11:05 APTT 31.4 Seconds (25.1-36.5) 07/28/17 11:05 - Constitutional Appears: Non-toxic, No Acute Distress - Head Exam Head Exam: ATRAUMATIC, NORMAL INSPECTION, NORMOCEPHALIC - Eye Exam Eye Exam: EOMI, Normal appearance - ENT Exam ENT Exam: Mucous Membranes Moist - Neck Exam Neck Exam: absent: Lymphadenopathy - Respiratory Exam Respiratory Exam: Clear to Ausculation Bilateral, NORMAL BREATHING PATTERN - Cardiovascular Exam Cardiovascular Exam: REGULAR RHYTHM - Neurological Exam Neurological Exam: Alert, Awake, Oriented x3 Assessment and Plan - Assessment and Plan (Free Text) Assessment: 62 year old AA female with with PMH of Protein C deficiency, asthma, HLD, HTN, atrial fibrillation, DVT with IVC filter, previous CVA, and 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 Plan: 1. Bronchitis -rapid flu negative -Sputum ESBL s. aureus and e. coli positive; merrem and vanco continued -Infectious disease consulted -Chest xray: trace linear atelectasis, repeat chest x-ray ordered -remains afebrile -no leukocytosis -continue duonebs -continue cepachol -continue robitussin 2. JOSEFINA-likely prerenal -resolved 3. Diarrhea-resolved -likely secondary to abx use -lactobacillus added 4. Headache -no focal deficits -tylenol given 5. History of Protein C Deficiency -Continue home eliquis 6. History of HTN -currently 141/91 -will start cozaar -Monitor with scheduled VS -Heart Healthy Diet 7. History of Atrial Fibrillation -Continue home eliquis Prophylaxis Protonix Eliquis <Chilo Sherman - Last Filed: 08/03/17 17:16> Objective - Vital Signs/Intake and Output Vital Signs (last 24 hours): Temp Pulse Resp BP Pulse Ox 98.2 F 76 18 140/90 100 08/03/17 08:10 08/03/17 10:55 08/03/17 08:10 08/03/17 10:55 08/03/17 08:10 Intake and Output: 08/03/17 08/03/17 06:59 18:59 Intake Total 1979 480 Balance 1979 480 - Medications Medications: Current Medications Acetaminophen (Tylenol 325mg Tab) 650 mg PO Q6H PRN PRN Reason: Pain, severe (8-10) Albuterol/Ipratropium (Duoneb 3 Mg/0.5 Mg (3 Ml) Ud) 3 ml IH [id number] [facility] Last Admin: 08/03/17 13:34 Dose: 3 ml Albuterol/Ipratropium (Duoneb 3 Mg/0.5 Mg (3 Ml) Ud) 3 ml IH Q2H PRN PRN Reason: Shortness of Breath Apixaban (Eliquis) 5 mg PO Q12 [facility] PRN Reason: Protocol Last Admin: 08/03/17 10:55 Dose: 5 mg Benzocaine/Menthol (Cepacol Sore Throat) 1 mercedes MT Q2H PRN PRN Reason: Sore Throat Last Admin: 07/30/17 18:07 Dose: 1 mercedes Ergocalciferol (Drisdol 50,000 Intl Units Cap) 1 cap PO Q7D ALEXI Gabapentin (Neurontin) 400 mg PO Q8 ALEXI PRN Reason: Protocol Last Admin: 08/03/17 05:17 Dose: 400 mg Guaifenesin (Robitussin) 100 mg PO Q4H PRN PRN Reason: Cough Last Admin: 08/03/17 01:52 Dose: 100 mg Meropenem 500 mg/ Sodium (Chloride) 50 mls @ 100 mls/hr IVPB Q8 ALEXI PRN Reason: Protocol Last Admin: 08/03/17 13:31 Dose: 100 mls/hr Lactobacillus Acidophilus (Bacid Acidophilus) 1 cap PO BID [facility] Last Admin: 08/03/17 10:55 Dose: 1 cap Losartan Potassium (Cozaar) 50 mg PO DAILY [facility] Last Admin: 08/03/17 10:55 Dose: 50 mg Metoprolol Tartrate (Lopressor) 25 mg PO BID [facility] Last Admin: 07/28/17 18:21 Dose: 25 mg Ondansetron HCl (Zofran Inj) 2 mg IVP Q6H PRN PRN Reason: Nausea/Vomiting Last Admin: 08/02/17 09:08 Dose: 2 mg Oxycodone HCl (Oxycodone Immediate Release Tab) 30 mg PO Q8H PRN PRN Reason: Pain, severe (8-10) Last Admin: 08/03/17 13:34 Dose: 30 mg Pantoprazole Sodium (Protonix Ec Tab) 40 mg PO 0600,1600 [facility] Last Admin: 08/03/17 05:17 Dose: 40 mg Zolpidem Tartrate (Ambien) 5 mg PO HS [facility] PRN Reason: Protocol Last Admin: 08/02/17 21:59 Dose: 5 mg - Labs Labs: 08/03/17 08:20 08/03/17 08:20 PT 14.0 SECONDS (9.4-12.5) H 07/28/17 11:05 INR 1.21 (0.93-1.08) H 07/28/17 11:05 APTT 31.4 Seconds (25.1-36.5) 07/28/17 11:05 Attending/Attestation - Attestation I have personally seen and examined this patient.: Yes I have fully participated in the care of the patient.: Yes I have reviewed all pertinent clinical information, including history, physical exam and plan: Yes Notes (Text): 08/03/17 17:14 Attending note; Patient seen and examined with resident. 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 Flu negative. V/Q scan show low probability scan. CT chest revealed no consolidation. Blood and urine culture negative. Sputum culture revealed ESBL and MSSA. Currently on meropenem. Patient feels better today and denies any complaints other than mild cough with brownish phlegm. Discussed with Dr Barksdale who recommends 3-5 days of therapy. Continue eliquis for atrial fibrillation. Possible discharge home tomorrow . Upon discharge patient will follow up with Dr. Ho.
--- NOTE | 2017-08-03 16:39 | CP.PCM.PN ---
Subjective - Date & Time of Evaluation Date of Evaluation: 08/03/17 Time of Evaluation: 12:35 - Subjective Subjective: Comfortable, no fevers, breathing better, no SOB at rest. Objective - Vital Signs/Intake and Output Vital Signs (last 24 hours): Temp Pulse Resp BP Pulse Ox 97.9 F 76 18 95/54 L 97 08/02/17 07:30 08/02/17 07:30 08/02/17 07:30 08/02/17 07:30 08/02/17 07:30 Intake and Output: 08/02/17 08/02/17 06:59 18:59 Intake Total 780 Balance 780 - Medications Medications: Current Medications Albuterol/Ipratropium (Duoneb 3 Mg/0.5 Mg (3 Ml) Ud) 3 ml IH [id number] ALEXI Last Admin: 08/02/17 13:18 Dose: 3 ml Albuterol/Ipratropium (Duoneb 3 Mg/0.5 Mg (3 Ml) Ud) 3 ml IH Q2H PRN PRN Reason: Shortness of Breath Apixaban (Eliquis) 5 mg PO Q12 ALEXI PRN Reason: Protocol Last Admin: 08/02/17 09:12 Dose: 5 mg Benzocaine/Menthol (Cepacol Sore Throat) 1 mercedes MT Q2H PRN PRN Reason: Sore Throat Last Admin: 07/30/17 18:07 Dose: 1 mercedes Ergocalciferol (Drisdol 50,000 Intl Units Cap) 1 cap PO Q7D ALEXI Gabapentin (Neurontin) 400 mg PO Q8 ALEXI PRN Reason: Protocol Last Admin: 08/02/17 13:27 Dose: 400 mg Guaifenesin (Robitussin) 100 mg PO Q4H PRN PRN Reason: Cough Last Admin: 08/02/17 09:08 Dose: 100 mg Meropenem 500 mg/ Sodium (Chloride) 50 mls @ 100 mls/hr IVPB Q8 [facility]LEXI PRN Reason: Protocol Last Admin: 08/02/17 13:13 Dose: 100 mls/hr Vancomycin HCl (Vancomycin 1gm) 1 gm in 250 mls @ 167 mls/hr IVPB DAILY [facility] PRN Reason: Protocol Last Admin: 08/02/17 09:09 Dose: 167 mls/hr Lactobacillus Acidophilus (Bacid Acidophilus) 1 cap PO BID [facility] Last Admin: 08/02/17 09:11 Dose: 1 cap Losartan Potassium (Cozaar) 50 mg PO DAILY [facility] Metoprolol Tartrate (Lopressor) 25 mg PO BID [facility] Last Admin: 07/28/17 18:21 Dose: 25 mg Ondansetron HCl (Zofran Inj) 2 mg IVP Q6H PRN PRN Reason: Nausea/Vomiting Last Admin: 08/02/17 09:08 Dose: 2 mg Oxycodone HCl (Oxycodone Immediate Release Tab) 30 mg PO Q8H PRN PRN Reason: Pain, severe (8-10) Last Admin: 08/02/17 13:27 Dose: 30 mg Pantoprazole Sodium (Protonix Ec Tab) 40 mg PO 0600,1600 [facility] Last Admin: 08/02/17 06:15 Dose: 40 mg Zolpidem Tartrate (Ambien) 5 mg PO HS [facility] PRN Reason: Protocol Last Admin: 08/02/17 00:19 Dose: 5 mg - Labs Labs: 08/02/17 08:24 08/02/17 08:24 PT 14.0 SECONDS (9.4-12.5) H 07/28/17 11:05 INR 1.21 (0.93-1.08) H 07/28/17 11:05 APTT 31.4 Seconds (25.1-36.5) 07/28/17 11:05 - Constitutional Appears: Chronically Ill - Head Exam Head Exam: NORMAL INSPECTION - ENT Exam ENT Exam: Mucous Membranes Moist - Neck Exam Neck Exam: absent: Meningismus - Respiratory Exam Respiratory Exam: Decreased Breath Sounds - Cardiovascular Exam Cardiovascular Exam: +S1, +S2 - GI/Abdominal Exam GI & Abdominal Exam: Soft. absent: Tenderness Assessment and Plan - Assessment and Plan (Free Text) Plan: Assessment consider respiratory tract infection with MSSA and ESBL E. 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 faecalis and Klebsiella history of acute rhabdomyolysis HTN history of transient ischemic attack dyslipidemia hypercoagulable state with Protein C deficiency chronic back pain S/P hysterectomy S/P gastric bypass surgery Plan continue Merrem day 3 - CXR does not show pneumonia - complete 3-5 days of therapy
[2017-08-03 22:53] VITALS: RESP 18
[2017-08-04] MEDS: Albuterol-Ipratrop 3 mg / 0.5 (3 ml) UD IH SCH ×2 (03:33→07:20)
[2017-08-04] MEDS: guaiFENesin 100 mg/5 ml Syrup UD PO PRN (03:52)
[2017-08-04] MEDS: Meropenem 500 MG in Sodium Chloride 0.9% 50 ML IVPB SCH (05:38)
[2017-08-04] MEDS: Pantoprazole 40 mg EC Tab PO SCH (05:38)
[2017-08-04] MEDS: oxyCODONE 30 mg Immediate Release Tab PO PRN (05:48)
[2017-08-04 08:16] LABS: HEMOGLOBIN 10.7 g/dL (12.0-16.0); MEAN CELL VOLUME 94.8 fl (80.0-105.0); MEAN CORPUSCULAR HEMOGLOBIN 30.7 pg (25.0-35.0); MEAN CORPUSCULAR HGB CONC 32.3 g/dl (31.0-37.0); MEAN PLATELET VOLUME 8.8 fl (7.0-11.0); RBC 3.49 10^6/uL (3.5-6.1); RED CELL DISTRIBUTION WIDTH 13.7 % (11.5-14.5); WHITE BLOOD COUNT 4.2 10^3/ul (4.5-11.0)
[2017-08-04 08:35] LABS: ALB/GLOB RATIO 1.1 (1.1-1.8); ALBUMIN 3.6 g/dL (3.0-4.8); ALT/SGPT 31 U/L (7-56); AST/SGOT 24 U/L (14-36); BLOOD UREA NITROGEN 12 mg/dL (7-21); GFR AFRICAN-AMERICAN > 60; GFR NON-AFRICAN AMERICAN > 60
[2017-08-04 09:32] VITALS: BP 138/68; PULSE 70; TEMP 97.7; O2SAT 99
--- NOTE | 2017-08-04 09:50 | CP.PCM.DIS ---
Provider - Provider Date of Admission: 07/29/17 12:11 Attending physician: Kathe Garcia MD Primary care physician: Orestes Ho MD [facility] Course - Lab Results Lab Results: Most Recent Lab Values WBC 4.2 10^3/ul (4.5-11.0) L 08/04/17 08:00 RBC 3.49 10^6/uL (3.5-6.1) L 08/04/17 08:00 Hgb 10.7 g/dL (12.0-16.0) L 08/04/17 08:00 Hct 33.1 % (36.0-48.0) L 08/04/17 08:00 MCV 94.8 fl (80.0-105.0) 08/04/17 08:00 MCH 30.7 pg (25.0-35.0) 08/04/17 08:00 MCHC 32.3 g/dl (31.0-37.0) 08/04/17 08:00 RDW 13.7 % (11.5-14.5) 08/04/17 08:00 Plt Count 224 10^3/uL (120.0-450.0) 08/04/17 08:00 MPV 8.8 fl (7.0-11.0) 08/04/17 08:00 Gran % 41.9 % (50.0-68.0) L 08/03/17 08:20 Lymph % (Auto) 42.3 % (22.0-35.0) H 08/03/17 08:20 [place] % (Auto) 9.6 % (1.0-6.0) H 08/03/17 08:20 Eos % (Auto) 5.3 % (1.5-5.0) H 08/03/17 08:20 Baso % (Auto) 0.9 % (0.0-3.0) 08/03/17 08:20 Gran # 1.83 (1.4-6.5) 08/03/17 08:20 Lymph # (Auto) 1.9 (1.2-3.4) 08/03/17 08:20 [place] # (Auto) 0.4 (0.1-0.6) 08/03/17 08:20 Eos # (Auto) 0.2 (0.0-0.7) 08/03/17 08:20 Baso # (Auto) 0.04 K/mm3 (0.0-2.0) 08/03/17 08:20 PT 14.0 SECONDS (9.4-12.5) H 07/28/17 11:05 INR 1.21 (0.93-1.08) H 07/28/17 11:05 APTT 31.4 Seconds (25.1-36.5) 07/28/17 11:05 pCO2 36 mm/Hg (35-45) 07/28/17 12:05 pO2 73.0 mm/Hg (80-100) L 07/28/17 12:05 HCO3 17.7 mmol/L (21-28) L 07/28/17 12:05 ABG pH 7.30 (7.35-7.45) L 07/28/17 12:05 ABG Total CO2 18.8 mmol.L (22-28) L 07/28/17 12:05 ABG O2 Saturation 96.8 % (95-98) 07/28/17 12:05 ABG Base Excess -7.9 mmol/L (-2.0-3.0) L 07/28/17 12:05 ABG Potassium 3.3 mmol/L (3.6-5.2) L 07/28/17 12:05 VBG pH 7.18 (7.32-7.43) L* 07/28/17 11:10 VBG pCO2 59.0 (40-60) 07/28/17 11:10 VBG HCO3 22.0 mmol/l (21-28) 07/28/17 11:10 VBG Total CO2 23.8 mmol.L (22-28) 07/28/17 11:10 VBG O2 Sat (Calc) 71.4 % (40-65) H 07/28/17 11:10 VBG Base Excess -7.1 mmol/L (0.0-2.0) L 07/28/17 11:10 VBG Potassium 3.8 mmol/L (3.6-5.2) 07/28/17 11:10 Sodium 136.0 mmol/L (132-148) 07/28/17 12:05 Chloride 110.0 mmol/L (98-107) H 07/28/17 12:05 Glucose 88 mg/dl (65-105) 07/28/17 12:05 Lactate 1.5 mmol/L (0.7-2.1) 07/28/17 12:05 FiO2 21.0 % 07/28/17 12:05 Sodium 142 mmol/L (132-148) 08/04/17 08:00 Potassium 4.2 mmol/L (3.6-5.0) 08/04/17 08:00 Chloride 106 mmol/L (98-107) 08/04/17 08:00 Carbon Dioxide 27 mmol/L (21-33) 08/04/17 08:00 Anion Gap 14 (10-20) 08/04/17 08:00 BUN 12 mg/dL (7-21) 08/04/17 08:00 Creatinine 0.6 mg/dl (0.7-1.2) L 08/04/17 08:00 Est GFR ( Amer) > 60 08/04/17 08:00 Est GFR (Non-Af Amer) > 60 08/04/17 08:00 Random Glucose 103 mg/dL (70-110) 08/04/17 08:00 Calcium 10.0 mg/dL (8.4-10.5) 08/04/17 08:00 Magnesium 2.1 mg/dL (1.7-2.2) 07/28/17 11:05 Total Bilirubin 0.6 mg/dL (0.2-1.3) 08/04/17 08:00 AST 24 U/L (14-36) 08/04/17 08:00 ALT 31 U/L (7-56) 08/04/17 08:00 Alkaline Phosphatase 76 U/L (38-126) 08/04/17 08:00 Lactate Dehydrogenase 867 U/L (333-699) H 07/28/17 11:05 Total Creatine Kinase 72 U/L (35-230) 07/28/17 11:05 Troponin I < 0.01 ng/mL 07/28/17 11:05 Total Protein 6.9 g/dL (5.8-8.3) 08/04/17 08:00 Albumin 3.6 g/dL (3.0-4.8) 08/04/17 08:00 Globulin 3.3 gm/dL 08/04/17 08:00 Albumin/Globulin Ratio 1.1 (1.1-1.8) 08/04/17 08:00 Procalcitonin 0.21 NG/ML (0.19-0.49) 07/30/17 11:11 Arterial Blood Potassium 3.3 mmol/L (3.6-5.2) L 07/28/17 12:05 Venous Blood Potassium 3.8 mmol/L (3.6-5.2) 07/28/17 11:10 Urine Color Yellow (YELLOW) 07/28/17 13:32 Urine Appearance Clear (CLEAR) 07/28/17 13:32 Urine pH 6.0 (4.7-8.0) 07/28/17 13:32 Ur Specific Leopold 1.010 (1.005-1.035) 07/28/17 13:32 Urine Protein Negative mg/dL (<30 mg/dL) 07/28/17 13:32 Urine Glucose (UA) Negative mg/dL (NEGATIVE) 07/28/17 13:32 Urine Ketones Trace mg/dL (NEGATIVE) H 07/28/17 13:32 Urine Blood Negative (NEGATIVE) 07/28/17 13:32 Urine Nitrate Negative (NEGATIVE) 07/28/17 13:32 Urine Bilirubin Negative (NEGATIVE) 07/28/17 13:32 Urine Urobilinogen 0.2 E.U./dL (<1 E.U./dL) 07/28/17 13:32 Ur Leukocyte Esterase Trace Zheng/uL (NEGATIVE) H 07/28/17 13:32 Urine RBC 0 - 2 /hpf (0-2) 07/28/17 13:32 Urine WBC 0 - 2 /hpf (0-6) 07/28/17 13:32 Ur Epithelial Cells 0 - 2 /hpf (0-5) 07/28/17 13:32 Calcium Oxalate Crystal Occ /hpf 07/28/17 13:32 Urine Bacteria Few (NEG) 07/28/17 13:32 Ur Random Creatinine 29 mg/dL 07/31/17 11:15 Ur Random Sodium 95 meq/L 07/31/17 11:15 Ur Random Urea Nitrogn 257 mg/dL 07/31/17 11:15 Influenza Typ A,B (EIA) Negative for flu a/b (NEGATIVE) 07/28/17 11:00 Grp A Beta Strep Ag Negative (NEGATIVE) 07/28/17 11:54 Discharge Exam - Head Exam Head Exam: NORMAL INSPECTION Discharge Plan - Discharge Medications Prescriptions: Benzocaine/Menthol [Cepacol Sore Throat] 1 mercedes MT Q2H PRN #30 mercedes PRN Reason: Sore Throat guaiFENesin [Robitussin] 100 mg PO Q4H PRN #1 bottle PRN Reason: Cough - Follow Up Plan Condition: FAIR Disposition: HOME/ ROUTINE Instructions: Heart Healthy Diet, Acute Kidney Failure Additional Instructions: 1. Cepacol lozenges as needed for sore throat. Robitussin as needed for cough. 2. Take Diovan daily and Metoprolol 25mg twice per day 3. Follow up with Dr. Moe for hospital follow up and blood pressure medication management. 4. Continue other home medications. 5. Drink plenty of fluids to maintain hydration. Referrals: Orestes Ho MD [Primary Care Provider] -
[2017-08-04] MEDS ORDERED: Ergocalciferol 50,000 Intl Units Cap PO SCH (10:00)
[2017-08-04] MEDS: Lactobacillus Acidophilus 500 MU Cap PO SCH (10:22)
--- NOTE | 2017-08-04 10:30 | CP.PCM.PN ---
Subjective - Date & Time of Evaluation Date of Evaluation: 08/04/17 Time of Evaluation: 10:29 - Subjective Subjective: Nephrology Consultation Note: Assessment: Stable Acute Kidney Injury (N17.9) likely due to prerenal state and low blood pressure : resolved Acute bronchitis/PNA with MDR E coli in sputum History of protein C deficiency and DVT and IVC filter history of rhabdomyolysis in the past HTN Plan No acute need for renal replacement therapy at this time. resume home BP meds Dose meds/antibiotics for Improved GFR. Avoid nephrotoxins/NSAIDs Glycemic control Further work up/management as per primary team pt stable for d/c from renal perspective. Thanks for allowing me to participate in care of your patient. Please call if any Qs. 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 She feels better at this time shortness of breath is better cough is better she also reported some difficulty in urination earlier. Denies OTC/herbal meds or NSAIDs No recent iodinated contrast exposure. noted episodes of low BP when came initially. ROS: Cardiovascular: No chest pain. Pulmonary: No shortness of breath . has cough at night but overall better Gastrointestinal: denies abdominal pain No nausea. No vomiting. Genitourinary: No pain while urinating. Denies blood in urine. All other negative except as mentioned in HPI Physical Examination: General Appearance: Comfortable, in no acute respiratory distress, co-operative . She is obese Vitals reviewed and noted as below Head; Atraumatic, normocephalic ENT: no ulcers no thrush. Tongue is midline. Oropharynx: no rash or ulcers. EYES: Pupils are equal, round and reactive to light accommodation. Eye muscles and extraocular movement intact. Sclera is anicteric. Neck; supple no lymphadenopathy, no thyromegaly or bruit Lungs: Normal respiratory rate/effort. Breath sounds bilateral equal and clear Heart: Normal rate. s1s2 normal. No rub or gallop. Extremities: no edema. No varicose veins Neurological: Patient is alert, awake and oriented to person, place and time. No focal deficit. Strength bilateral appropriate and equal Skin: Warm and dry. Normal turgor. No rash. Palpitation: Normal elasticity for age Abdomen: Abdomen is soft. Bowel sounds +. There is no abdominal tenderness, no guarding/rigidity no organomegaly Psych: normal insight and normal affect/mood MSK: no joint tenderness or swelling. Digits and nails normal, no deformity : kidney or bladder not palpable Labs/imaging reviewed. Past medical history, past surgical history, family history, social history, allergy reviewed and noted as below Family hx: no hx of CKD. Rest non-contributory Workup her CPK level is 72 UA shows trace ketone Objective - Vital Signs/Intake and Output Vital Signs (last 24 hours): Temp Pulse Resp BP Pulse Ox 97.7 F 70 18 138/68 99 08/04/17 07:30 08/04/17 07:30 08/04/17 07:30 08/04/17 07:30 08/04/17 07:30 Intake and Output: 08/04/17 08/04/17 06:59 18:59 Intake Total 840 Balance 840 - Medications Medications: Current Medications Acetaminophen (Tylenol 325mg Tab) 650 mg PO Q6H PRN PRN Reason: Pain, severe (8-10) Albuterol/Ipratropium (Duoneb 3 Mg/0.5 Mg (3 Ml) Ud) 3 ml IH [id number] [facility] Last Admin: 08/04/17 07:20 Dose: 3 ml Albuterol/Ipratropium (Duoneb 3 Mg/0.5 Mg (3 Ml) Ud) 3 ml IH Q2H PRN PRN Reason: Shortness of Breath Apixaban (Eliquis) 5 mg PO Q12 ALEXI PRN Reason: Protocol Last Admin: 08/03/17 21:21 Dose: 5 mg Benzocaine/Menthol (Cepacol Sore Throat) 1 mercedes MT Q2H PRN PRN Reason: Sore Throat Last Admin: 07/30/17 18:07 Dose: 1 mercedes Ergocalciferol (Drisdol 50,000 Intl Units Cap) 1 cap PO Q7D ALEXI Gabapentin (Neurontin) 400 mg PO Q8 ALEXI PRN Reason: Protocol Last Admin: 08/04/17 05:37 Dose: 400 mg Guaifenesin (Robitussin) 100 mg PO Q4H PRN PRN Reason: Cough Last Admin: 08/04/17 03:52 Dose: 100 mg Meropenem 500 mg/ Sodium (Chloride) 50 mls @ 100 mls/hr IVPB Q8 ALEXI PRN Reason: Protocol Last Admin: 08/04/17 05:38 Dose: 100 mls/hr Lactobacillus Acidophilus (Bacid Acidophilus) 1 cap PO BID [facility] Last Admin: 08/03/17 17:59 Dose: 1 cap Losartan Potassium (Cozaar) 50 mg PO DAILY [facility] Last Admin: 08/03/17 10:55 Dose: 50 mg Metoprolol Tartrate (Lopressor) 25 mg PO BID [facility] Ondansetron HCl (Zofran Inj) 2 mg IVP Q6H PRN PRN Reason: Nausea/Vomiting Last Admin: 08/02/17 09:08 Dose: 2 mg Oxycodone HCl (Oxycodone Immediate Release Tab) 30 mg PO Q8H PRN PRN Reason: Pain, severe (8-10) Last Admin: 08/04/17 05:48 Dose: 30 mg Pantoprazole Sodium (Protonix Ec Tab) 40 mg PO 0600,1600 [facility] Last Admin: 08/04/17 05:38 Dose: 40 mg Zolpidem Tartrate (Ambien) 5 mg PO HS [facility] PRN Reason: Protocol Last Admin: 08/03/17 22:46 Dose: 5 mg - Labs Labs: 08/04/17 08:00 08/04/17 08:00 PT 14.0 SECONDS (9.4-12.5) H 07/28/17 11:05 INR 1.21 (0.93-1.08) H 07/28/17 11:05 APTT 31.4 Seconds (25.1-36.5) 07/28/17 11:05
[2017-08-04] MEDS ORDERED: Pneumococcal 23-Valent Vaccine IM ONE (10:34)
[2017-08-04] MEDS ORDERED: Influenza Vaccine 60 mcg/0.5 mL SYR (4YR UP) IM ONE (10:34)
--- NOTE | 2017-08-04 18:20 | PN ---
DATE: 08/04/2017 SUBJECTIVE: The patient is seen in room 575, bed 2, this morning. No fevers and no chills. No nausea or vomiting. PHYSICAL EXAMINATION: VITAL SIGNS: Temperature is 97, blood pressure is 138/60, respiratory rate of 18, heart rate of 79. HEENT: Unremarkable. NECK: Supple. LUNGS: Decreased breath sounds. HEART: Normal S1, S2. ABDOMEN: Soft, nontender. LABORATORY EXAMINATION: Reveals the patient's white count of 4.2, hemoglobin of 10, and platelets of 224. Chemistries reveal the patient's BUN of 12, creatinine 0.6. Rrocalcitonin 0.21. Urinalysis is noted. Serology, influenza is negative and group B strep is negative. The patient had an HIV test in June 2016, which was negative. Microbiology reveals E. coli and staph aureus in the sputum and the E. coli is ESBL and staph is sensitive staph. ASSESSMENT AND PLAN: A 62-year-old female seen early this morning at 575, bed 2, with respiratory tract infection, questionable methicillin-susceptible Staphylococcus aureus, extended-spectrum beta-lactamase Escherichia coli, history of right breast abscess status post incision and drainage, on meropenem. Chest x-ray was negative and discussed with nursing staff. We will follow with you. Josh Rodriguez MD
== END 2017-08-04 12:08 | disposition home or self-care (01) | DRG 683 ==
LOC: ED 09:51 → ERH 14:57 → 5RSO 17:44 → 5RNO 07-29 09:31 → OBSVTOIN 07-29 12:11 → 5RSO 07-31 23:57
PROVIDERS: ADMIT Internal Medicine; ATTEND Hospitalist
PROC: 3E0F7GC Introduction of Other Therapeutic Substance into Respiratory Tract, Via Natural or Artificial Opening (ICD-10-PCS; principal; 2017-07-29)
DX: N17.9 Acute kidney failure, unspecified (principal); E86.0 Dehydration; J20.9 Acute bronchitis, unspecified; D68.59 Other primary thrombophilia; I48.91 Unspecified atrial fibrillation; E78.5 Hyperlipidemia, unspecified; G89.29 Other chronic pain; I10 Essential (primary) hypertension; R33.9 Retention of urine, unspecified; J02.9 Acute pharyngitis, unspecified; M54.9 Dorsalgia, unspecified; J45.909 Unspecified asthma, uncomplicated; R19.7 Diarrhea, unspecified; Z86.73 Personal history of transient ischemic attack (TIA), and cerebral infarction without residual deficits; Z90.13 Acquired absence of bilateral breasts and nipples; Z79.01 Long term (current) use of anticoagulants; Z86.718 Personal history of other venous thrombosis and embolism; Z98.84 Bariatric surgery status; Z90.710 Acquired absence of both cervix and uterus; Z89.022 Acquired absence of left finger(s); Z89.021 Acquired absence of right finger(s)

== ENCOUNTER 2017-08-11 14:06 | Inpatient (IN) | payer MEDICARE, OTHER ==
--- NOTE | 2017-08-11 14:32 | ED PDOC ---
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 Patient also notes that she experiences associated upper abdominal pain. Patient denies any fever or any other complaints at this time. Time/Duration: < week Symptom Onset: Gradual Symptom Course: Unchanged Activities at Onset: Light Context: Home Past Medical History - Provider Review Nursing Documentation Reviewed: Yes - Infectious Disease Hx of Infectious Diseases: None - Tetanus Immunization Tetanus Immunization: Unknown - Cardiac Hx Cardiac Disorders: Yes Hx Hypertension: Yes Hx Peripheral Vascular Disease: Yes (DVT) - Pulmonary Hx Respiratory Disorders: Yes Hx Asthma: Yes Hx Pneumonia: Yes - Neurological Hx Neurological Disorder: Yes HX Cerebrovascular Accident: Yes Hx Transient Ischemic Attacks (TIA): Yes - HEENT Hx HEENT Disorder: Yes Hx Blind: Yes (RIGHT EYE) - Renal Hx Renal Failure: Yes - Endocrine/Metabolic Hx Endocrine Disorders: No - Hematological/Oncological Hx Blood Disorders: Yes (COAGULOPATHY) Hx Anemia: Yes (IRON DEFICIENCY ANEMIA) - Integumentary Hx Dermatological Disorder: Yes Other/Comment: 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 - Musculoskeletal/Rheumatological Hx Musculoskeletal Disorders: Yes (SCIATICA) Hx Arthritis: Yes Hx Back Pain: Yes Hx Falls: Yes Hx Unsteady Gait: Yes (CANE) - Gastrointestinal Hx Gastrointestinal Disorders: Yes Hx Gall Bladder Disease: Yes Other/Comment: Gastric Bypass Surgery - Genitourinary/Gynecological Hx Genitourinary Disorders: Yes Hx Urinary Tract Infection: Yes - Psychiatric Hx Psychophysiologic Disorder: Yes (INSOMNIA) Hx Substance Use: No - Past Surgical History Past Surgical History: Non-Contributing - Surgical History Hx Gastric Bypass Surgery: Yes Hx Hysterectomy: Yes Hx Mastectomy: Yes (B/L Mastectomy) Other/Comment: b/l middle fingers amputated - Anesthesia Hx Anesthesia: Yes Hx Anesthesia Reactions: No Hx Malignant Hyperthermia: No - Suicidal Assessment Feels Threatened In Home Enviroment: No Family/Social History - Physician Review Nursing Documentation Reviewed: Yes Family/Social History: No Known Family HX Smoking Status: Never Smoked Hx Alcohol Use: No Hx Substance Use: No Hx Substance Use Treatment: No Allergies/Home Meds Allergies/Adverse Reactions: Allergies Penicillins Allergy (Verified 08/11/17 14:14) ANGIOEDEMA/SHORTNESS OF BREATH ANGIOEDEMA SHORTNESS OF BREATH Home Medications: Home Meds Medication Instructions Recorded Confirmed Apixaban [Eliquis] 5 mg PO BID 03/26/17 08/11/17 Gabapentin [Neurontin] 400 mg PO TID 03/26/17 08/11/17 Pantoprazole Sodium [Protonix] 40 mg PO BID 03/26/17 08/11/17 Zolpidem [Ambien] 10 mg PO HS 03/26/17 08/11/17 oxyCODONE [oxyCODONE Immediate 30 mg PO TID 03/26/17 08/11/17 Release Tab] Cholecalciferol [Vitamin D 1000 IU] 50,000 unit PO QWK 06/12/17 08/11/17 Valsartan [Diovan] 80 mg PO DAILY 08/03/17 08/11/17 Review of Systems - Review of Systems Constitutional: absent: Fevers, Night Sweats Eyes: absent: Vision Changes ENT: absent: Hearing Changes Respiratory: SOB, Cough Cardiovascular: FERNANDEZ. absent: Chest Pain Gastrointestinal: absent: Abdominal Pain Genitourinary Female: absent: Dysuria, Frequency Musculoskeletal: absent: Arthralgias Skin: absent: Rash, Pruritis Neurological: absent: Headache, Dizziness Endocrine: absent: Diaphoresis Hemo/Lymphatic: absent: Adenopathy Psychiatric: absent: Anxiety, Depression Physical Exam - Physical Exam Narrative Physical Exam (Text): Head: Atraumatic. Normocephalic. Eyes: PERRL. EOMI. Conjunctivae are not pale. ENT: Mucous membranes are moist and intact. Oropharynx is clear and symmetric. No drooling, no pooling of secretions. Occasional stridorous sounds. Neck: Supple. Full ROM. No JVD. No lymphadenopathy. Cardiovascular: Regular rate. Regular rhythm. No murmurs, rubs, or gallops. Distal pulses are 2+ and symmetric. Pulmonary/Chest: Bilateral expiratory wheezing. No accessory muscle usage. Abdominal: Soft and non-distended. Mild epigastric pain. No incarcerated hernais noted. No rebound, guarding, or rigidity. No organomegaly. Good bowel sounds. Back: No CVA tenderness. No midline tenderness. Extremities: No edema. Full range of motion in all extremities. No calf tenderness. Skin: Skin is warm and dry. No petechiae. No purpura. Neurological: Alert, awake, and oriented to person, place, time, and situation. Normal speech. No facial droop. Steady gait. Normal finger to nose. Normal rapid alternating movements. Psychiatric: Good eye contact. Normal interaction, affect, and behavior. 08/11/17 20:07 08/11/17 20:39 Vital Signs Reviewed: Yes Vital Signs Temp Pulse Resp BP Pulse Ox 08/11/17 17:18 87 18 113/60 97 08/11/17 15:01 96 08/11/17 14:33 98.4 F 79 27 H 122/48 L 94 L 08/11/17 14:20 18 Temperature: Afebrile Blood Pressure: Hypotensive Pulse: Tachycardic Medical Decision Making ED Course and Treatment: 08/11/17 14:33 Impression: 62 year old female complaining of shortness of breath and coughing since yesterday. Differential Diagnosis included but are not limited to: Plan: -- EKG -- Chest X-ray -- Blood Culture -- Urine Culture and Urinalysis -- ABG -- VBG -- Labs -- Duoneb -- Reassess and disposition Prior Visits: Notes and results from previous visits were reviewed. Patient was last seen in the emergency department on 07/28/17 for 1 day history of shortness of breath. Patient was admitted to hospitalist care for further evaluation. Reviewed Chest CT on the 07/28 which showed: No acute consolidation. No effusion or pneumothorax. Minor linear scarring changes seen in the superior margins of the upper lobes bilaterally as well as right middle lobe. Patient also had a Lung Scan Nuclear Medicine on 07/28 which showed: Low probability ventilation perfusion scan for pulmonary embolism. No significant interval change compared to the prior examination(s). Progress Notes: Patient on initial exam is afebrile, neurologically intact. Mild wheezing noted. However during examination patient felt as if she was becoming more short of breath and made stridorous sounds. No drooling. No difficulty speaking. No chest pain or neck pain. No lip or tongue swelling. Symptoms resolved spontaneously after less than one minutes. Nebulizers were given. IV steroids given. She has had 2 other episdoes of stridorous sounds, each lasting less than one minute. 08/11/2017 15:54 Chest X-ray IMPRESSION: No active disease. Dictator: Sae Edge MD 08/11/2017 17:37 Neck/Chest CT IMPRESSION: Unremarkable non-contrast enhance CT of the neck. Thorax: No active pulmonary disease. Markedly dilated esophagus without focal lesion. Dictator: Sander Arroyo MD Abnormal CT findings reviewed with patient. On re-exam, she states that she has been "eating fine" with no dysphagia or nausea. States she has been urinating "normally" and states that she has been moving her bowels. Labs significant for acute renal failure. ENT consulted for intermittent stridor. As per Dr. Almeida, no significant obstruction noted. Serial neuro exams remains intact. She is able to ambulate easily, converse easily. Over past two hours there have been no further episodes of stridor. She has no chest pain, and is already on blood thinner. Has hx of ivc filter. Recetn vq scan low probability. No acute calf pain. Patient will be admitted to telemetry for acute renal failure, bronchospasm, stridor, serial exams and monitoring of symptoms. Case d/w Dr. Bolivar who accepts admission to his service. - Lab Interpretations Lab Results: 08/11/17 15:15 08/11/17 15:15 Lab Results 08/11/17 17:45: Urine Color Yellow, Urine Appearance Clear, Urine pH 6.0, Ur Specific Bay 1.020, Urine Protein Negative, Urine Glucose (UA) Negative, Urine Ketones Trace H, Urine Blood Negative, Urine Nitrate Negative, Urine Bilirubin Negative, Urine Urobilinogen 0.2, Ur Leukocyte Esterase Trace H, Urine RBC 0 - 2, Urine WBC 2 - 5, Ur Epithelial Cells 4 - 5, Amorphous Sediment Small, Urine Bacteria Many, Urine Other Uyeast 08/11/17 16:38: pO2 43, VBG pH 7.17 L*, VBG pCO2 60.0, VBG HCO3 21.9, VBG Total CO2 23.7, VBG O2 Sat (Calc) 78.6 H, VBG Base Excess -7.4 L, VBG Potassium 4.6, Sodium 132.0, Chloride 101.0, Glucose 85, Lactate 1.2, FiO2 21.0, Venous Blood Potassium 4.6 08/11/17 15:15: Sodium 135, Chloride 99, Potassium 4.4, Carbon Dioxide 21, Anion Gap 19, BUN 39 H, Creatinine 4.0 H, Est GFR ( Amer) 14, Est GFR ( Non-Af Amer) 11, Random Glucose 85, Calcium 9.3, Total Bilirubin 0.6, AST 36 D , ALT 30, Alkaline Phosphatase 80, Lactate Dehydrogenase 454, Total Creatine Kinase 75, Troponin I < 0.01, NT-Pro-B Natriuret Pep 159, Total Protein 7.7, Albumin 4.2, Globulin 3.6, Albumin/Globulin Ratio 1.2 08/11/17 15:15: PT 16.3 H, INR 1.42 H, APTT 35.6 08/11/17 15:15: WBC 9.9 D, RBC 3.53, Hgb 10.8 L, Hct 33.9 L, MCV 96.0, MCH 30.6 , MCHC 31.9, RDW 13.9, Plt Count 233, MPV 9.0, Gran % 80.6 H, Lymph % (Auto) 12.6 L, Stark % (Auto) 5.5, Eos % (Auto) 1.2 L, Baso % (Auto) 0.1, Gran # 7.98 H , Lymph # (Auto) 1.3, Stark # (Auto) 0.5, Eos # (Auto) 0.1, Baso # (Auto) 0.01 08/11/17 15:10: Influenza Typ A,B (EIA) Negative for flu a/b 08/11/17 14:35: pCO2 40, pO2 131.0 H, HCO3 18.8 L, ABG pH 7.28 L, ABG Total CO2 20.0 L, ABG O2 Saturation 98.5 H, ABG Base Excess -7.5 L, ABG Potassium 4.4, Sodium 134.0, Chloride 105.0, Glucose 87, Lactate 1.1, FiO2 60.0, Arterial Blood Potassium 4.4 I have reviewed the lab results: Yes - RAD Interpretation Radiology Orders: 08/11/17 14:40 CHEST PORTABLE [RAD] Stat 08/11/17 15:37 NECK & CHEST W/O CONTRAST [CT] Stat - EKG Interpretation EKG Interpretation (Text): EKG at 14:16 normal sinus rhythm rate of [address] elevations Interpreted by ED Physician: Yes Type: 12 lead EKG - Medication Orders Current Medication Orders: Discontinued Medications Albuterol/Ipratropium (Duoneb 3 Mg/0.5 Mg (3 Ml) Ud) 3 ml IH STAT STA Stop: 08/11/17 14:42 Last Admin: 08/11/17 15:03 Dose: 3 ml Albuterol/Ipratropium (Duoneb 3 Mg/0.5 Mg (3 Ml) Ud) 3 ml IH STAT STA Stop: 08/11/17 15:43 Last Admin: 08/11/17 15:42 Dose: 3 ml Albuterol/Ipratropium (Duoneb 3 Mg/0.5 Mg (3 Ml) Ud) 3 ml IH STAT STA Stop: 08/11/17 18:17 Last Admin: 08/11/17 18:30 Dose: 3 ml Methylprednisolone (Solu-Medrol) 125 mg IVP STAT STA Stop: 08/11/17 15:45 Last Admin: 08/11/17 16:27 Dose: 125 mg IVP Administration Document 08/11/17 16:27 (Rec: 08/11/17 16:27 [email or web address]-[id number]) Charges for Administration # of IVP Administrations 1 - Scribe Statement The provider has reviewed the documentation as recorded by the Sherwin Lowery Provider Scribe Attestation: All medical record entries made by the Leonaibchris were at my direction and personally dictated by me. I have reviewed the chart and agree that the record accurately reflects my personal performance of the history, physical exam, medical decision making, and the department course for this patient. I have also personally directed, reviewed, and agree with the discharge instructions and disposition. Disposition/Present on Arrival - Present on Arrival Any Indicators Present on Arrival: No History of DVT/PE: No History of Uncontrolled Diabetes: No Urinary Catheter: No History of Decub. Ulcer: No History Surgical Site Infection Following: None - Disposition Have Diagnosis and Disposition been Completed?: Yes Diagnosis: Acute renal failure, Bronchospasm, Stridor Disposition: HOSPITALIZED Disposition Time: 17:00 Patient Plan: Admission, Telemetry Patient Problems: Current Active Problems Problem Status Onset Acute renal failure Acute Bronchospasm Acute Stridor Acute Condition: SERIOUS
[2017-08-11] MEDS ORDERED: Albuterol-Ipratrop 3 mg / 0.5 (3 ml) UD IH STA ×3 (14:41→18:16)
[2017-08-11 15:43] LABS: ARTERIAL BLOOD GAS HCO3 18.8 mmol/L (21-28); ARTERIAL BLOOD GAS O2 SAT 98.5 % (95-98); ARTERIAL BLOOD GAS PCO2 40 mm/Hg (35-45); ARTERIAL BLOOD GAS PH 7.28 (7.35-7.45)
--- NOTE | 2017-08-11 15:56 | RAD ---
HISTORY: sob COMPARISON: 08/02/2017 FINDINGS: LUNGS: No active pulmonary disease. PLEURA: No significant pleural effusion identified, no pneumothorax apparent. CARDIOVASCULAR: Normal. OSSEOUS STRUCTURES: No significant abnormalities. VISUALIZED UPPER ABDOMEN: Normal. OTHER FINDINGS: None. IMPRESSION: No active disease.
[2017-08-11 16:41] LABS: VENOUS BLOOD GAS BASE EXCESS -7.4 mmol/L (0.0-2.0); VENOUS BLOOD GAS PO2 43 mm/Hg (30-55)
[2017-08-11 16:45] LABS: VENOUS BLOOD PH 7.17 (7.32-7.43)
[2017-08-11 16:46] LABS: BASO # 0.01 K/mm3 (0.0-2.0); BASO % 0.1 % (0.0-3.0); EOS # 0.1 (0.0-0.7); EOS % 1.2 % (1.5-5.0); GRAN # 7.98 (1.4-6.5); GRAN % 80.6 % (50.0-68.0); HEMOGLOBIN 10.8 g/dL (12.0-16.0); LYMPH # 1.3 (1.2-3.4); LYMPH % 12.6 % (22.0-35.0); MEAN CORPUSCULAR HEMOGLOBIN 30.6 pg (25.0-35.0); MEAN CORPUSCULAR HGB CONC 31.9 g/dl (31.0-37.0); MONO # 0.5 (0.1-0.6); MONO % 5.5 % (1.0-6.0); RBC 3.53 10^6/uL (3.5-6.1); RED CELL DISTRIBUTION WIDTH 13.9 % (11.5-14.5); WHITE BLOOD COUNT 9.9 10^3/ul (4.5-11.0)
[2017-08-11 17:09] LABS: INR 1.42 (0.93-1.08); PARTIAL THROMBOPLASTIN TIME 35.6 Seconds (25.1-36.5); PROTHROMBIN TIME 16.3 SECONDS (9.4-12.5)
[2017-08-11 17:10] LABS: B-TYPE NATRIURETIC PEPTIDE 159 pg/mL (0-450); TROPONIN I < 0.01 ng/mL
[2017-08-11 17:14] LABS: ALB/GLOB RATIO 1.2 (1.1-1.8); ALBUMIN 4.2 g/dL (3.0-4.8); ALT/SGPT 30 U/L (7-56); AST/SGOT 36 U/L (14-36); BLOOD UREA NITROGEN 39 mg/dL (7-21); CALCIUM 9.3 mg/dL (8.4-10.5); GFR AFRICAN-AMERICAN 14; GFR NON-AFRICAN AMERICAN 11
--- NOTE | 2017-08-11 17:39 | CT ---
PROCEDURE: CT NECK WITHOUT CONTRAST CT CHEST WITHOUT CONTRAST HISTORY: SHORTNESS OF BREATH COMPARISON: 07/28/2017 CT thorax TECHNIQUE: This CT exam was performed using one or more of the following dose reduction techniques: Automated exposure control, adjustment of the mA and/or kV according to patient size, and/or use of iterative reconstruction technique. Radiation dose (DLP): 843.25 mGy-cm. FINDINGS: NASOPHARYNX: Unremarkable. SUPRAHYOID NECK: Unremarkable oropharynx, oral cavity, parapharyngeal space and retropharyngeal space. INFRAHYOID NECK: Unremarkable larynx, hypopharynx, and supraglottic space. Vocal cords intact. MASS: None. GLANDS: Parotid and submandibular glands unremarkable. Normal size thyroid gland, without nodule. LYMPH NODES: Normal. No lymphadenopathy. CERVICAL SPINE: No fracture or focal lesion. OTHER FINDINGS: MARKEDLY DILATED CERVICAL ESOPHAGUS. PROCEDURE: CT Chest without contrast PULMONARY PARENCHYMA: No active pulmonary disease. No pulmonary nodules, masses, infiltrates. MEDIASTINUM: No evidence of mediastinal or significant hilar adenopathy. No radiographic findings to suggest acute or significant cardiovascular disease. PLEURA: No pleural fluid. No pneumothorax. BONES: Minor multilevel degenerative spondylosis of the thoracic spine.There are no acute compression fractures no retropulsed fragments. UPPER ABDOMEN: Postsurgical changes of the stomach. And dilatation of the entire intrathoracic esophagus with an air-fluid level. IMPRESSION: Unremarkable non-contrast enhanced CT of the neck. Thorax: No active pulmonary disease. Markedly dilated esophagus without focal lesion.
[2017-08-11 19:27] LABS: URINE BILIRUBIN NEGATIVE (NEGATIVE); URINE BLOOD NEGATIVE (NEGATIVE); URINE GLUCOSE (UA) NEGATIVE (NEGATIVE); URINE LEUKOCYTE ESTERASE TRACE Leu/uL (NEGATIVE); URINE PROTEIN NEGATIVE mg/dL (<30 mg/dL); URINE UROBILINOGEN 0.2 E.U./dL (<1 E.U./dL)
[2017-08-11 19:28] LABS: URINE APPEARANCE CLEAR (CLEAR); URINE COLOR YELLOW (YELLOW)
[2017-08-11 19:39] LABS: URINE AMORPHOUS SEDIMENT SMALL; URINE BACTERIA MANY (NEG); URINE RBC 0 - 2 /hpf (0-2)
--- NOTE | 2017-08-11 20:11 | CP.PCM.HP ---
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 She was also found to have acutely elevated creatinine on her initial labs, concerning for possible acute renal failure. Of note, patient was discharged from [facility] on (admitted at that time for shortness of breath and urinary retention). Today , patient reports that she was fine after going home on the 6th for 3 days, then started to develop a cough, which she attributed to dust from cleaning her computers at home. However in the last 2-3 days, the cough has been productive of yellow sputum, occasionally tinged with blood. Denies gregorio hemoptysis. She also reports intermittent shortness of breath, which she most notices when she is trying to talk; however on further review, she admits that she has the episodes intermittently, even at rest and when not trying to talk. During interview, she displayed several of these episodes, where she would suddenly become short of breath, gasp, breath sounds like stridor, and would speak in a higher pitch of voice/have dyspnic speach for up to 2 minutes at a time. She reports that these episodes are variable in length, typically for a few minutes at a time, but can last as little as a few seconds or as much as a half hour. Denies syncopal/near-syncopal episodes during these events, but reports palpitations intermittently during, and gets very anxious regarding them. Additionally, reports nausea and emesis, and minimal tolerance of PO intake for last 5 days. Is able to tolerate fluids and "sweets," but reports throwing up most solid food. Reports few episodes of emesis not triggered by PO intake preceding. Denies bilious emesis, hematemesis, or uncontrolled/non-stop emesis. Admits to only minimal PO fluid intake, due to lack of thirst, and does note decreased urine output prior to presentation. Denies urinary frequency, burning, hematuria, of oliguria/anuria. Despite these symptoms, patient is repeatedly asking to be allowed to eat something during interview and exam, repeatedly asking for a cheeseburger. Of note, patient has had several admissions in the past with acutely elevated creatinine, frequently following episodes of emesis and minimal PO intake, with a high point of 7.3 on 01/12/17. At that time, the j2ee application developer following the patient determined that this was pre-renal JOSEFINA in nature, likely ATN; all episodes have resolved prior to discharge, with a baseline Cr of 0.6-0.7 for the last several discharges. Denies chest pain, hematemesis, diarrhea, constipation, syncope/pre-syncope. PMH: as above PSH: Tonsillectomy, double mastectomy, bilateral fourth digit amputation, gastric bypass Family History: Extensive family history of cancer, including Mom (Breast), Dad (metastatic, unknown primary) Social History: Denies tobacco, alcohol or illicit drug use; ambulates with cane PMD: Dr. Ho Onc: Dr. Zendejas Present on Admission - Present on Admission Any Indicators Present on Admission: Yes History of DVT/PE: Yes History of Uncontrolled Diabetes: No Urinary Catheter: No Review of Systems - Review of Systems All systems: reviewed and no additional remarkable complaints except (as per HPI ) Past Patient History - Infectious Disease Hx of Infectious Diseases: None - Tetanus Immunizations Tetanus Immunization: Unknown - Past Medical History & Family History Past Medical History?: Yes - Past Social History Smoking Status: Never Smoked - CARDIAC Hx Cardiac Disorders: Yes Hx Hypertension: Yes Hx Peripheral Vascular Disease: Yes (DVT) - PULMONARY Hx Respiratory Disorders: Yes Hx Asthma: Yes Hx Pneumonia: Yes - NEUROLOGICAL Hx Neurological Disorder: Yes HX Cerebrovascular Accident: Yes Hx Transient Ischemic Attacks (TIA): Yes - HEENT Hx HEENT Problems: Yes Hx Blind: Yes (RIGHT EYE) - RENAL Hx Renal Failure: Yes - ENDOCRINE/METABOLIC Hx Endocrine Disorders: No - HEMATOLOGICAL/ONCOLOGICAL Hx Blood Disorders: Yes (COAGULOPATHY) Hx Anemia: Yes (IRON DEFICIENCY ANEMIA) - INTEGUMENTARY Hx Dermatological Problems: Yes Other/Comment: 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 - MUSCULOSKELETAL/RHEUMATOLOGICAL Hx Musculoskeletal Disorders: Yes (SCIATICA) Hx Arthritis: Yes Hx Back Pain: Yes Hx Falls: Yes Hx Unsteady Gait: Yes (CANE) - GASTROINTESTINAL Hx Gastrointestinal Disorders: Yes Hx Gall Bladder Disease: Yes Other/Comment: Gastric Bypass Surgery - GENITOURINARY/GYNECOLOGICAL Hx Genitourinary Disorders: Yes Hx Urinary Tract Infection: Yes - PSYCHIATRIC Hx Psychophysiologic Disorder: Yes (INSOMNIA) Hx Substance Use: No - SURGICAL HISTORY Hx Gastric Bypass Surgery: Yes Hx Hysterectomy: Yes Hx Mastectomy: Yes (B/L Mastectomy) Other/Comment: b/l middle fingers amputated - ANESTHESIA Hx Anesthesia: Yes Hx Anesthesia Reactions: No Hx Malignant Hyperthermia: No Meds Allergies/Adverse Reactions: Allergies Allergy/AdvReac Type Severity Reaction Status Date / Time Penicillins Allergy ANGIOEDEMA/SHORTNESS Verified 08/11/17 14:14 OF BREATH Physical Exam - Constitutional Appears: Non-toxic, Chronically Ill Additional comments: for majority of exam, patient exhibits no acute distress during acute incidences of respiratory symptoms, briefly in distress, needs to stop talking/walking, and breathes slowly for up to 1 minute - Head Exam Head Exam: ATRAUMATIC, NORMAL INSPECTION, NORMOCEPHALIC - Eye Exam Eye Exam: EOMI, Normal appearance, PERRL. absent: Conjunctival injection, Scleral icterus Pupil Exam: NORMAL ACCOMODATION, PERRL. absent: Irregular, Unequal - ENT Exam ENT Exam: Mucous Membranes Dry Additional comments: some missing teeth, but otherwise dentition intact no bloody secretions pooled in the mouth - Neck Exam Neck exam: Positive for: Full Rom, Normal Inspection. Negative for: Tenderness Additional comments: during acute episode of respiratory symptoms, auscultation of neck negative for stridor - Respiratory Exam Respiratory Exam: Decreased Breath Sounds (mildly decreased breath sounds in all giraldo), Clear to Auscultation Bilateral. absent: Accessory Muscle Use, Chest Wall Tenderness, Rales, Rhonchi, Wheezes Additional comments: When not experiencing acute episode of her respiratory symptoms: normal breathing, not dyspnic with speech, no accessory muscle use, not grossly tachypnic, no stridor, no wheezing, rales, ronchi When experiencing acute episode of respiratory symptoms: breathing quickly becomes rapid/shallow until she makes an effort to breath slowly, speech becomes more dyspnic/breathless and goes up in tone, but breath sounds remain clear, no gregorio wheezing appreciated, no stridor no neck auscultation, no ronchorous sounds in lungs or neck - Cardiovascular Exam Cardiovascular Exam: Tachycardia, REGULAR RHYTHM, +S1, +S2. absent: Bradycardia , Irregular Rhythm, JVD, +S4 Additional comments: borderline tachycardic throughout exam, 90's-100's on bedside monitor throughout exam. - GI/Abdominal Exam GI & Abdominal Exam: Normal Bowel Sounds, Soft, Tenderness (mild tenderness to palpation diffusely, no single site is most tender). absent: Diminished Bowel Sounds, Firm, Hyperactive Bowel Sounds, Hypoactive Bowel Sounds, Rigid - Extremities Exam Extremities exam: Positive for: pedal pulses present (faintly palpable dorsalis pedis bilaterally, +1 radials bilaterally). Negative for: calf tenderness, pedal edema, tenderness Additional comments: normal inspection of bilateral LE bilateral UE missing 4th digits, otherwise normal exam, well healed amputation sites without oozing or discharge - Back Exam Back exam: absent: CVA tenderness (L), CVA tenderness (R) - Neurological Exam Additional comments: awake and alert, oriented to self/location/year/situation Following all commands appropriately witnessed ambulating through ED with cane, slow but stable gait moving all extremities spontaneously motor appears grossly intact and equal bilaterally, no facial droop, mild favoring of right side of stance but that is side patient is using cane on - Psychiatric Exam Additional comments: Intermittently anxious and agitated, but normal affect - Skin Skin Exam: Dry, Intact (except as documented in extremities exam), Normal Color , Warm Results - Vital Signs Recent Vital Signs: Last Vital Signs Temp 98.4 F 08/11/17 14:33 Pulse 87 08/11/17 17:18 Resp 18 08/11/17 17:18 BP 113/60 08/11/17 17:18 Pulse Ox 97 08/11/17 17:18 - Labs Result Diagrams: 08/11/17 15:15 08/11/17 15:15 Assessment & Plan - Assessment and Plan (Free Text) Assessment: This is a 62 yo AA F with PMH of Protein C deficiency, asthma, HLD, HTN, atrial fibrillation, DVT with IVC filter, previous CVA, and 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 She was also found to have acutely elevated creatinine on her initial labs, concerning for possible acute renal failure. Plan: Neuro: -awake and alert, following all commands -maintain normothermia -hx CVAs, no gross residual deficit at this time Pulm: -shortness of breath with possible intermittent bronchospasm -anxiety vs PNA vs upper airway irritation from repeated emesis -satting well on nasal canula on initial exam, seem ambulating without nasal canula in ED without issue -maintain SaO2 > 92%, continue nasal canula overnight -ABG in ED reviewed, notable for pCO2 40, pO2 131, pH 7.28, HCO3 18.8, on 60% FiO2, will repeat in AM on 2L NC -Albuterol IH q6 prn for shortness of breath -V/q Scan to rule out PE, CTA contraindicated due to current renal function -continue home Eliquis 5mg PO BID for therapeutic AC -continuous pulse ox for monitoring overnight Cardio: -RRR, hx of Afib -continue home Eliquis for AC -continue home Metoprolol for rate control -Hx HTN, but currently normotensive, hold home Diovan, holding home Losartan due to JOSEFINA/ARF GI: -Protonix BID to replace Dexilant 60mg daily (not on formulary) -Starting on clear liquid diet given hx of poor PO toleration of solid food -Zofran PRN for nausea/emesis; aggressive avoidance of emesis where feasible to prevent possible worsening of JOSEFINA -covering empirically for possible enteritis with Levaquin (renally dosed as above) Renal: -acutely elevated creatinine, 4 on admission, 0.6 on discharge 1 week prior -elevated BUN as well, and dry appearing clinically with history of repeated emesis and decreased PO intake, so likely Pre-renal component -multiple prior elevations, high point of Cr 7.3 (01/12/17), at that time, as per Nephro, likely pre-renal JOSEFINA/ATN -urine electrolytes, urine and serum osms ordered, f/u -avoid nephrotoxic drugs where feasible -current Cr clearance on admission labs 14, will need to renally dose antibiotics -continue to monitor on daily labs -NS 100cc/hr IV -maintain euglycemia -metabolic acidosis on ABG with pH 7.28 and low bicarb, not picture of hypochloremic/hypokalemic alkalosis expected in severe emesis, possible mixed picture, will reassess on morning labs -UA concerning for possible infection and yeast in urine, covering with renally dosed Levaquin and diflucan Heme: -Hgb 10.8, baseline from prior charting is 8.5-10.5 -likely an element of hemoconcentration from dehydration, but hemodynamically stable, unlikely to be low to a level requiring transfusion -hx protein C deficiency, coumadin-induced necrolysis, prior DVTs and PEs s/p IVC filter -continue home Eliquis ID: -no leukocytosis, afebrile, but UA suggestive of possible UTI, and N/V concerning for possible enteritis -ceftriaxone not a option due to severe penicillin allergy, will cover with renally dosed levaquin; diflucan for yeast in urine -Blood and urine cultures pending, Procal pending Dispo: ICU for continuous pulse-ox and monitoring FEN: Clear liquid diet, NS 100cc/hr Access: Peripheral IVs Consults: could consider Nephro, Pulm; defer to day team for decision to consult Ppx: Protonix covers GI, Eliquis covers for DVT Patient seen, reviewed, and discussed with attending, Dr. Patel. Decision To Admit - Pt Status Changed To: Hospital Disposition Of: Inpatient Admission - Admit Certification Admit to Inpatient:: After my assessment, the patient will require hospitalization for at least two midnights. This is because of the severity of symptoms shown, intensity of services needed, and/or the medical risk in this patient being treated as an outpatient. - . Bed Request Type: Critical Care <Demetri Patel Q - Last Filed: 08/12/17 04:12> Results - Vital Signs Recent Vital Signs: Last Vital Signs Temp 98.4 F 08/11/17 14:33 Pulse 87 08/11/17 17:18 Resp 18 08/11/17 17:18 BP 113/60 08/11/17 17:18 Pulse Ox 97 08/11/17 17:18 - Labs Result Diagrams: 08/11/17 15:15 08/11/17 15:15 Attending/Attestation - Attestation I have personally seen and examined this patient.: Yes I have fully participated in the care of the patient.: Yes I have reviewed all pertinent clinical information: Yes Notes (Text): 08/12/17 04:10 I agree with the above mentioned note and exam by the resident with the addition /exception of the followin62 y/o female with an extensive pmhx as listed above came to the ED with cough, shortness of breath and intermittent episodes of what appeared to be upper airway stridor. Patient reportedly had a bedside laryngoscopy done by ENT service showing no laryngeal mass or edema, however I personally was not present at the time of this laryngoscopy. Patient kept in the ICU for continuous pulse oximetry monitoring and is being treated for bronchitis/uti/ candiduria as well.
[2017-08-11 21:43] LABS: HDL CHOLESTEROL 68 mg/dL (29-60)
[2017-08-11 21:54] LABS: LDL CHOLESTEROL 70 mg/dL (0-129)
[2017-08-12] MEDS: Sodium Chloride 0.9% 1,000 ML IV SCH ×3 (00:57→17:59)
[2017-08-12] MEDS: Pantoprazole 40 mg EC Tab PO SCH ×3 (01:17→18:02)
[2017-08-12 07:16] LABS: GRAN # 9.01 (1.4-6.5); GRAN % 88.1 % (50.0-68.0); HEMOGLOBIN 11.2 g/dL (12.0-16.0); LYMPH # 1.1 (1.2-3.4); LYMPH % 10.9 % (22.0-35.0); MEAN CELL VOLUME 94.5 fl (80.0-105.0); MEAN CORPUSCULAR HEMOGLOBIN 30.6 pg (25.0-35.0); MEAN CORPUSCULAR HGB CONC 32.4 g/dl (31.0-37.0); MEAN PLATELET VOLUME 9.4 fl (7.0-11.0); MONO # 0.1 (0.1-0.6); RBC 3.66 10^6/uL (3.5-6.1); RED CELL DISTRIBUTION WIDTH 13.5 % (11.5-14.5); WHITE BLOOD COUNT 10.2 10^3/ul (4.5-11.0)
--- NOTE | 2017-08-12 07:25 | CARD ---
APPROVED REPORT EKG Measurement Heart [id number] <Conclusion> Normal sinus rhythm Normal ECG
[2017-08-12 07:36] LABS: ALB/GLOB RATIO 1.1 (1.1-1.8); ALBUMIN 4.2 g/dL (3.0-4.8); CALCIUM 9.8 mg/dL (8.4-10.5)
--- NOTE | 2017-08-12 08:09 | CON ---
DATE: 08/11/2017 HISTORY OF PRESENT ILLNESS: This is a 62-year-old black female who was seen in the emergency room with a history of intermittent stridor. The patient had a previous history of asthmatic bronchitis and was treated previously in the ER approximately 2 weeks ago. On today's examination in the ER, she was noted to have intermittent stridor with shortness of breath. PHYSICAL EXAMINATION: Revealed external auditory canals and tympanic membranes to be normal bilaterally. Oropharyngeal and nasopharyngeal exam were within normal limits. We performed direct fiberoptic laryngoscopy where the epiglottis and the larynx were directly visualized. There was normal vocal cord mobility and there was area of right arytenoid edema and erythema present. There were no obstructing masses noted. IMPRESSION: The patient suffers from asthmatic bronchitis, slight arytenoiditis on the right. PLAN: The plan would be to place the patient on steroids over the next several days with tapering and to follow up with us as an outpatient should symptoms reoccur regarding stridor. The CT scan of the neck is also pending. Cornell Almeida DO
[2017-08-12] MEDS ORDERED: Dextrose 50% SYRINGE Inj (50 ml) IVP STA (08:55)
[2017-08-12] MEDS ORDERED: Insulin Regular 1 UNITS/0.01 ML ML SC STA (08:55)
--- NOTE | 2017-08-12 09:10 | RAD ---
HISTORY: shortness of breath COMPARISON: 08/11/2017 FINDINGS: LUNGS: No active pulmonary disease. PLEURA: No significant pleural effusion identified, no pneumothorax apparent. CARDIOVASCULAR: Normal. OSSEOUS STRUCTURES: No significant abnormalities. VISUALIZED UPPER ABDOMEN: Normal. OTHER FINDINGS: None. IMPRESSION: No active disease.
[2017-08-12 09:22] VITALS: BMI 31.6
[2017-08-12] MEDS ORDERED: Influenza Vaccine 60 mcg/0.5 mL SYR (4YR UP) IM ONE (09:22)
[2017-08-12] MEDS ORDERED: Pneumococcal 23-Valent Vaccine IM ONE (09:22)
[2017-08-12] MEDS ORDERED: levoFLOXacin 250 mg in D5W 250 MG/50 ML BAG IVPB SCH (10:00)
[2017-08-12] MEDS ORDERED: oxyCODONE 30 mg Immediate Release Tab PO SCH (10:00)
[2017-08-12] MEDS ORDERED: Fluconazole IV 200mg/100 ml NS 100 ML IVPB SCH (10:00)
[2017-08-12] MEDS: oxyCODONE 30 mg Immediate Release Tab PO PRN ×2 (10:07→18:01)
[2017-08-12] MEDS: guaiFENesin 100 mg/5 ml Syrup UD PO PRN ×2 (10:12→16:39)
--- NOTE | 2017-08-12 10:40 | NM ---
COMPARISON: August 11, 2017. TECHNIQUE: 35.0 mCi technetium 99-m DTPA aerosol. 3.5 mCI technetium 99-m MAA administered intravenously. FINDINGS: VENTILATION COMPONENT: Heterogeneous ventilation. Retention of radionuclide in the tracheobronchial tree and ingestion of radionuclide in the stomach, incidental findings PERFUSION COMPONENT: No acute findings related to/accounting for the clinical presentation. IMPRESSION: Low probability ventilation perfusion scan for pulmonary embolism. Concordant results (preliminary interpretation) provided by [facility]. Procedure Completed: 23:32 Preliminary ([facility]) Report: Dictated and Authenticated: 00:19. Final Interpretation: 10:39.
[2017-08-12] MEDS ORDERED: Dextrose 50% SYRINGE Inj (50 ml) ONE (10:59)
--- NOTE | 2017-08-12 13:27 | CP.CCUPN ---
<Mariusz Martinez - Last Filed: 08/12/17 13:37> CCU Subjective - Physician Review Subjective (Free Text): Patient seen and evaluated bedside. No acute issues overnight. Patient says her throat bothers her, like an irritation. She denies any shortness of breath, chest pain, nausea, vomiting, fever, chills or any other complaints at this time. 08/12/17 13:25 Critical Care Time Spent (in minutes): 35 CCU Objective - Vital Signs / Intake & Output Vital Signs (Last 4 hours): Vital Signs Pulse Resp BP 08/12/17 10:05 96 H 102/55 L 08/12/17 09:54 96 H 33 H 08/12/17 09:53 95 H 08/12/17 09:52 97 H 29 H 08/12/17 09:51 97 H 14 08/12/17 09:50 97 H 29 H 08/12/17 09:49 95 H 13 08/12/17 09:48 96 H 19 08/12/17 09:47 96 H 35 H 08/12/17 09:46 103 H 18 08/12/17 09:45 95 H 24 08/12/17 09:44 97 H 21 08/12/17 09:43 97 H 15 08/12/17 09:42 96 H 30 H 08/12/17 09:41 97 H 08/12/17 09:40 98 H 18 08/12/17 09:39 96 H 22 08/12/17 09:38 98 H 20 08/12/17 09:37 97 H 26 H 08/12/17 09:36 96 H 08/12/17 09:35 99 H 16 08/12/17 09:34 99 H 40 H 08/12/17 09:33 97 H 16 08/12/17 09:32 99 H 26 H 08/12/17 09:31 99 H 24 08/12/17 09:30 99 H 16 08/12/17 09:29 96 H 08/12/17 09:28 97 H 14 08/12/17 09:27 99 H 15 08/12/17 09:26 100 H 31 H Intake and Output (Last 8hrs): Intake & Output 08/11/17 08/12/17 08/12/17 22:59 06:59 14:59 Weight 217 lb Other: Voiding Method Bedside Commode - Physical Exam Head: Positive for: Atraumatic, Normocephalic Pupils: Positive for: PERRL Respiratory/Chest: Positive for: Clear to Auscultation, Good Air Exchange. Negative for: Respiratory Distress, Accessory Muscle Use Cardiovascular: Positive for: Regular Rate and Rhythm, Normal S1, S2 Abdomen: Negative for: Tenderness, Distention Lower Extremity: Negative for: Edema Psychiatric: Positive for: Alert, Oriented x 3 - Medications Active Medications: Active Medications Generic Name Dose Route Start Last Admin Trade Name Freq PRN Reason Stop Dose Admin Albuterol Sulfate 2.5 mg 08/11/17 23:16 Albuterol 0.083% Inhal Angella (2.5 Mg/3 Ml) Ud INH [id number] PRN Shortness of Breath Apixaban 5 mg 08/11/17 23:00 08/12/17 10:07 Eliquis PO 5 mg BID ALEXI Administration Protocol Ergocalciferol 50,000 cap 08/18/17 10:00 Drisdol 50,000 Intl Units Cap PO QWK ALEXI Gabapentin 400 mg 08/12/17 10:00 08/12/17 10:06 Neurontin PO 400 mg TID ALEXI Administration Protocol Guaifenesin 100 mg 08/11/17 22:47 08/12/17 10:12 Robitussin PO 100 mg Q4H PRN Administration Cough Sodium Chloride 1,000 mls @ 100 mls/hr 08/11/17 21:00 08/12/17 07:00 Sodium Chloride 0.9% IV 100 mls/hr .Q10H ALEXI Administration Levofloxacin/Dextrose 250 mg in 50 mls @ 100 mls/hr 08/12/17 10:00 08/12/17 10:05 Levaquin 250mg IVPB 100 mls/hr QOTHERDAY ALEXI Administration Protocol Methylprednisolone 20 mg 08/12/17 14:00 Solu-Medrol IVP Q8 ALEXI Metoprolol Tartrate 25 mg 08/12/17 10:00 08/12/17 10:05 Lopressor PO 25 mg BID ALEXI Administration Ondansetron HCl 4 mg 08/11/17 23:17 Zofran Inj IVP Q6H PRN Nausea/Vomiting Oxycodone HCl 30 mg 08/12/17 03:00 08/12/17 10:07 Oxycodone Immediate Release Tab PO 30 mg TID PRN Administration Pain, moderate (4-7) Pantoprazole Sodium 40 mg 08/11/17 23:00 08/12/17 10:07 Protonix Ec Tab PO 40 mg BID ALEXI Administration Zolpidem Tartrate 5 mg 08/11/17 23:00 08/12/17 01:17 Ambien PO 5 mg HS ALEXI Administration Protocol - Patient Studies Lab Studies: Lab Studies 08/12/17 08/12/17 Range/Units 06:00 06:00 WBC 10.2 (4.5-11.0) 10^3/ul RBC 3.66 (3.5-6.1) 10^6/uL Hgb 11.2 L (12.0-16.0) g/dL Hct 34.6 L (36.0-48.0) % MCV 94.5 (80.0-105.0) fl MCH 30.6 (25.0-35.0) pg MCHC 32.4 (31.0-37.0) g/dl RDW 13.5 (11.5-14.5) % Plt Count 222 (120.0-450.0) 10^3/uL MPV 9.4 (7.0-11.0) fl Gran % 88.1 H (50.0-68.0) % Lymph % (Auto) 10.9 L (22.0-35.0) % [place] % (Auto) 1.0 (1.0-6.0) % Eos % (Auto) 0.0 L (1.5-5.0) % Baso % (Auto) 0.0 (0.0-3.0) % Gran # 9.01 H (1.4-6.5) Lymph # (Auto) 1.1 L (1.2-3.4) [place] # (Auto) 0.1 (0.1-0.6) Eos # (Auto) 0.0 (0.0-0.7) Baso # (Auto) 0.00 (0.0-2.0) K/mm3 Sodium 134 (132-148) mmol/L Potassium 5.4 H (3.6-5.0) mmol/L Chloride 101 (98-107) mmol/L Carbon Dioxide 18 L (21-33) mmol/L Anion Gap 21 H (10-20) BUN 44 H (7-21) mg/dL Creatinine 2.8 H (0.7-1.2) mg/dl Est GFR ( Amer) 21 Est GFR (Non-Af Amer) 17 Random Glucose 149 H (70-110) mg/dL Calcium 9.8 (8.4-10.5) mg/dL Phosphorus 7.7 H (2.5-4.5) mg/dL Magnesium 2.3 H (1.7-2.2) mg/dL Total Bilirubin 0.7 (0.2-1.3) mg/dL AST 40 H (14-36) U/L ALT 24 (7-56) U/L Alkaline Phosphatase 90 (38-126) U/L Total Protein 8.1 (5.8-8.3) g/dL Albumin 4.2 (3.0-4.8) g/dL Globulin 3.9 gm/dL Albumin/Globulin Ratio 1.1 (1.1-1.8) Laboratory Results - last 24 hr 08/12/17 08/12/17 06:00 06:00 WBC 10.2 RBC 3.66 Hgb 11.2 L Hct 34.6 L MCV 94.5 MCH 30.6 MCHC 32.4 RDW 13.5 Plt Count 222 MPV 9.4 Gran % 88.1 H Lymph % (Auto) 10.9 L [place] % (Auto) 1.0 Eos % (Auto) 0.0 L Baso % (Auto) 0.0 Gran # 9.01 H Lymph # (Auto) 1.1 L [place] # (Auto) 0.1 Eos # (Auto) 0.0 Baso # (Auto) 0.00 Sodium 134 Potassium 5.4 H Chloride 101 Carbon Dioxide 18 L Anion Gap 21 H BUN 44 H Creatinine 2.8 H Est GFR ( Amer) 21 Est GFR (Non-Af Amer) 17 Random Glucose 149 H Calcium 9.8 Phosphorus 7.7 H Magnesium 2.3 H Total Bilirubin 0.7 AST 40 H ALT 24 Alkaline Phosphatase 90 Total Protein 8.1 Albumin 4.2 Globulin 3.9 Albumin/Globulin Ratio 1.1 EKG/Cardiology Studies: Cardiology / EKG Studies 08/12/17 07:00 ELECTROCARDIOGRAM DAILY Comment: Reason For Exam: intermittent palpitations, shortness of breath Review of Systems - Cardiovascular Cardiovascular: absent: Chest Pain, Dyspnea, Edema, Lightheadedness - Respiratory Respiratory: Cough. absent: Dyspnea on Exertion, Wheezing, Pain with Coughing - Gastrointestinal Gastrointestinal: absent: Constipation, Diarrhea, Dysphagia, Nausea, Vomiting - Genitourinary Genitourinary: absent: Difficulty Urinating, Dysuria - Neurological Neurological: absent: Dizziness, Numbness, Headaches, Tingling Critical Care Progress Note - Nutrition Nutrition: Nutrition Category Date Time Status Regular Diet [DIET] Diets 08/12/17 Lunch Ordered Assessment/Plan - Assessment and Plan (Free Text) Assessment: 62 yo AA F with PMH of Protein C deficiency, asthma, HLD, HTN, atrial fibrillation, DVT with IVC filter, previous CVA, and 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 Plan: Neuro: -awake and alert, following all commands -continue to monitor Pulm: -shortness of breath intermittent -maintain SaO2 > 92% -Albuterol IH q6 prn for shortness of breath -Solumedrol -continuous pulse Cardio: -RRR, hx of Afib -holding eliquis for possible endoscopy tomorrow -continue home Metoprolol for rate control GI: -Protonix BID -regular diet -Gi consulted, Kelly, follow recs -possibly endoscopy tomorrow -CT Neck and chest showed dilated esophagus Renal: -JOSEFINA -continue fluids -NS 100cc/hr IV -avoid nephrotoxic drugs where feasible -continue to monitor on daily labs -maintain euglycemia Heme: -continue to monitor H/H -hx protein C deficiency, coumadin-induced necrolysis, prior DVTs and PEs s/p IVC filter -eliquis currently held ID: -no leukocytosis, afebrile, -continue abx for possible UTI -Blood and urine cultures pending, Procal pending Access: Peripheral IVs Ppx: Protonix, eliquis held <Shon Conteh - Last Filed: 08/12/17 16:47> CCU Objective - Vital Signs / Intake & Output Vital Signs (Last 4 hours): Vital Signs Pulse Resp 08/12/17 16:17 82 15 08/12/17 16:16 81 16 03/14/18 16:15 82 27 H 03/14/18 16:14 82 15 03/14/18 16:13 81 14 03/14/18 16:12 92 H 64 H 03/14/18 16:11 82 22 03/14/18 16:10 99 H 167 H 03/14/18 16:06 89 58 H 03/14/18 16:05 82 42 H 03/14/18 16:04 80 03/14/18 16:03 81 32 H 03/14/18 16:02 83 49 H 03/14/18 16:01 85 45 H 03/14/18 16:00 80 17 03/14/18 15:59 80 30 H 03/14/18 15:58 80 12 03/14/18 15:57 79 32 H 03/14/18 15:56 81 24 03/14/18 15:55 81 21 03/14/18 15:54 81 03/14/18 15:53 80 16 03/14/18 15:52 80 36 H 03/14/18 15:51 82 03/14/18 15:50 81 19 03/14/18 15:49 80 15 03/14/18 15:48 80 16 03/14/18 15:47 83 27 H 03/14/18 15:46 79 15 03/14/18 15:45 79 16 03/14/18 15:44 82 88 H 03/14/18 15:43 88 26 H 03/14/18 15:42 83 177 H 03/14/18 15:41 83 22 03/14/18 15:40 81 03/14/18 15:39 79 45 H 03/14/18 15:38 83 13 03/14/18 15:37 83 45 H 03/14/18 15:36 79 39 H 03/14/18 15:35 83 23 03/14/18 15:34 79 21 03/14/18 15:33 84 03/14/18 15:32 79 14 03/14/18 15:31 80 13 03/14/18 15:30 84 16 03/14/18 15:29 76 17 03/14/18 15:28 81 15 03/14/18 15:27 79 13 03/14/18 15:26 82 14 03/14/18 15:25 80 14 Intake and Output (Last 8hrs): Intake & Output 08/12/17 08/12/17 08/12/17 06:59 14:59 22:59 Weight 217 lb Other: Voiding Method Bedside Commode - Medications Active Medications: Active Medications Generic Name Dose Route Start Last Admin Trade Name Freq PRN Reason Stop Dose Admin Albuterol Sulfate 2.5 mg 08/11/17 23:16 Albuterol 0.083% Inhal Angella (2.5 Mg/3 Ml) Ud INH [id number] PRN Shortness of Breath Apixaban 5 mg 08/11/17 23:00 08/12/17 10:07 Eliquis PO 5 mg BID ALEXI Administration Protocol Ergocalciferol 50,000 cap 08/18/17 10:00 Drisdol 50,000 Intl Units Cap PO QWK ALEXI Gabapentin 400 mg 08/12/17 10:00 08/12/17 10:06 Neurontin PO 400 mg TID ALEXI Administration Protocol Guaifenesin 100 mg 08/11/17 22:47 08/12/17 10:12 Robitussin PO 100 mg Q4H PRN Administration Cough Sodium Chloride 1,000 mls @ 100 mls/hr 08/11/17 21:00 08/12/17 07:00 Sodium Chloride 0.9% IV 100 mls/hr .Q10H ALEXI Administration Levofloxacin/Dextrose 250 mg in 50 mls @ 100 mls/hr 08/12/17 10:00 08/12/17 10:05 Levaquin 250mg IVPB 100 mls/hr QOTHERDAY ALEXI Administration Protocol Methylprednisolone 20 mg 08/12/17 14:00 Solu-Medrol IVP Q8 ALEXI Metoprolol Tartrate 25 mg 08/12/17 10:00 08/12/17 10:05 Lopressor PO 25 mg BID ALEXI Administration Ondansetron HCl 4 mg 08/11/17 23:17 Zofran Inj IVP Q6H PRN Nausea/Vomiting Oxycodone HCl 30 mg 08/12/17 03:00 08/12/17 10:07 Oxycodone Immediate Release Tab PO 30 mg TID PRN Administration Pain, moderate (4-7) Pantoprazole Sodium 40 mg 08/11/17 23:00 08/12/17 10:07 Protonix Ec Tab PO 40 mg BID ALEXI Administration Zolpidem Tartrate 5 mg 08/11/17 23:00 08/12/17 01:17 Ambien PO 5 mg HS ALEXI Administration Protocol - Patient Studies Lab Studies: Lab Studies 08/12/17 08/12/17 08/12/17 Range/Units 15:41 13:35 12:27 WBC (4.5-11.0) 10^3/ul RBC (3.5-6.1) 10^6/uL Hgb (12.0-16.0) g/dL Hct (36.0-48.0) % MCV (80.0-105.0) fl MCH (25.0-35.0) pg MCHC (31.0-37.0) g/dl RDW (11.5-14.5) % Plt Count (120.0-450.0) 10^3/uL MPV (7.0-11.0) fl Gran % (50.0-68.0) % Lymph % (Auto) (22.0-35.0) % [place] % (Auto) (1.0-6.0) % Eos % (Auto) (1.5-5.0) % Baso % (Auto) (0.0-3.0) % Gran # (1.4-6.5) Lymph # (Auto) (1.2-3.4) [place] # (Auto) (0.1-0.6) Eos # (Auto) (0.0-0.7) Baso # (Auto) (0.0-2.0) K/mm3 Sodium (132-148) mmol/L Potassium (3.6-5.0) mmol/L Chloride (98-107) mmol/L Carbon Dioxide (21-33) mmol/L Anion Gap (10-20) BUN (7-21) mg/dL Creatinine (0.7-1.2) mg/dl Est GFR ( Amer) Est GFR (Non-Af Amer) POC Glucose (mg/dL) 85 91 138 H (65-110) mg/dL Random Glucose (70-110) mg/dL Calcium (8.4-10.5) mg/dL Phosphorus (2.5-4.5) mg/dL Magnesium (1.7-2.2) mg/dL Total Bilirubin (0.2-1.3) mg/dL AST (14-36) U/L ALT (7-56) U/L Alkaline Phosphatase (38-126) U/L Total Protein (5.8-8.3) g/dL Albumin (3.0-4.8) g/dL Globulin gm/dL Albumin/Globulin Ratio (1.1-1.8) 08/12/17 08/12/17 08/12/17 Range/Units 11:38 06:00 06:00 WBC 10.2 (4.5-11.0) 10^3/ul RBC 3.66 (3.5-6.1) 10^6/uL Hgb 11.2 L (12.0-16.0) g/dL Hct 34.6 L (36.0-48.0) % MCV 94.5 (80.0-105.0) fl MCH 30.6 (25.0-35.0) pg MCHC 32.4 (31.0-37.0) g/dl RDW 13.5 (11.5-14.5) % Plt Count 222 (120.0-450.0) 10^3/uL MPV 9.4 (7.0-11.0) fl Gran % 88.1 H (50.0-68.0) % Lymph % (Auto) 10.9 L (22.0-35.0) % [place] % (Auto) 1.0 (1.0-6.0) % Eos % (Auto) 0.0 L (1.5-5.0) % Baso % (Auto) 0.0 (0.0-3.0) % Gran # 9.01 H (1.4-6.5) Lymph # (Auto) 1.1 L (1.2-3.4) [place] # (Auto) 0.1 (0.1-0.6) Eos # (Auto) 0.0 (0.0-0.7) Baso # (Auto) 0.00 (0.0-2.0) K/mm3 Sodium 134 (132-148) mmol/L Potassium 5.4 H (3.6-5.0) mmol/L Chloride 101 (98-107) mmol/L Carbon Dioxide 18 L (21-33) mmol/L Anion Gap 21 H (10-20) BUN 44 H (7-21) mg/dL Creatinine 2.8 H (0.7-1.2) mg/dl Est GFR ( Amer) 21 Est GFR (Non-Af Amer) 17 POC Glucose (mg/dL) 165 H (65-110) mg/dL Random Glucose 149 H (70-110) mg/dL Calcium 9.8 (8.4-10.5) mg/dL Phosphorus 7.7 H (2.5-4.5) mg/dL Magnesium 2.3 H (1.7-2.2) mg/dL Total Bilirubin 0.7 (0.2-1.3) mg/dL AST 40 H (14-36) U/L ALT 24 (7-56) U/L Alkaline Phosphatase 90 (38-126) U/L Total Protein 8.1 (5.8-8.3) g/dL Albumin 4.2 (3.0-4.8) g/dL Globulin 3.9 gm/dL Albumin/Globulin Ratio 1.1 (1.1-1.8) Laboratory Results - last 24 hr 08/12/17 08/12/17 08/12/17 06:00 06:00 11:38 WBC 10.2 RBC 3.66 Hgb 11.2 L Hct 34.6 L MCV 94.5 MCH 30.6 MCHC 32.4 RDW 13.5 Plt Count 222 MPV 9.4 Gran % 88.1 H Lymph % (Auto) 10.9 L [place] % (Auto) 1.0 Eos % (Auto) 0.0 L Baso % (Auto) 0.0 Gran # 9.01 H Lymph # (Auto) 1.1 L [place] # (Auto) 0.1 Eos # (Auto) 0.0 Baso # (Auto) 0.00 Sodium 134 Potassium 5.4 H Chloride 101 Carbon Dioxide 18 L Anion Gap 21 H BUN 44 H Creatinine 2.8 H Est GFR ( Amer) 21 Est GFR (Non-Af Amer) 17 POC Glucose (mg/dL) 165 H Random Glucose 149 H Calcium 9.8 Phosphorus 7.7 H Magnesium 2.3 H Total Bilirubin 0.7 AST 40 H ALT 24 Alkaline Phosphatase 90 Total Protein 8.1 Albumin 4.2 Globulin 3.9 Albumin/Globulin Ratio 1.1 08/12/17 08/12/1718 12:27 13:35 15:41 WBC RBC Hgb Hct MCV MCH MCHC RDW Plt Count MPV Gran % Lymph % (Auto) [place] % (Auto) Eos % (Auto) Baso % (Auto) Gran # Lymph # (Auto) [place] # (Auto) Eos # (Auto) Baso # (Auto) Sodium Potassium Chloride Carbon Dioxide Anion Gap BUN Creatinine Est GFR ( Amer) Est GFR (Non-Af Amer) POC Glucose (mg/dL) 138 H 91 85 Random Glucose Calcium Phosphorus Magnesium Total Bilirubin AST ALT Alkaline Phosphatase Total Protein Albumin Globulin Albumin/Globulin Ratio EKG/Cardiology Studies: Cardiology / EKG Studies 08/12/17 07:00 ELECTROCARDIOGRAM DAILY Comment: Reason For Exam: intermittent palpitations, shortness of breath Critical Care Progress Note - Nutrition Nutrition: Nutrition Category Date Time Status Regular Diet [DIET] Diets 08/12/17 Lunch Ordered Attending/Attestation - Attestation I have personally seen and examined this patient.: Yes I have fully participated in the care of the patient.: Yes I have reviewed all pertinent clinical information: Yes Notes (Text): 08/12/17 16:39 62 yo female who was admitted with some arythenoid cartilage swelling ( infectious or non infectious origin), s/p laryngoscopy by ENT. steroids and abx started, patient substantially improved. no stridor nor drooling, no SOB and no respiratory duistress. CT neck showed dilated esophagus-->GI consulted: endoscopy on o/p basis. continue eliquis for protein c deficeincy. ok to downgrade to tele. ccm time 40 min
--- NOTE | 2017-08-12 15:12 | CP.PCM.PN ---
<IvetteRa Baird - Last Filed: 08/12/17 15:52> Subjective - Date & Time of Evaluation Date of Evaluation: 08/12/17 Time of Evaluation: 15:55 - Subjective Subjective: Medicine progress note: Dr. Garcia Patient seen and examined at bedside. She states that she feels better than when she was admitted. She states that the shortness of breath may also have a component of anxiety. No sick contacts. Objective - Vital Signs/Intake and Output Vital Signs (last 24 hours): Temp Pulse Resp BP Pulse Ox 98.8 F 96 H 33 H 102/55 L 98 08/12/17 02:30 08/12/17 10:05 08/12/17 09:54 08/12/17 10:05 08/12/17 02:17 - Medications Medications: Current Medications Albuterol Sulfate (Albuterol 0.083% Inhal Angella (2.5 Mg/3 Ml) Ud) 2.5 mg INH [id number] PRN PRN Reason: Shortness of Breath Apixaban (Eliquis) 5 mg PO BID ALEXI PRN Reason: Protocol Last Admin: 08/12/17 10:07 Dose: 5 mg Ergocalciferol (Drisdol 50,000 Intl Units Cap) 50,000 cap PO QWK ALEXI Gabapentin (Neurontin) 400 mg PO TID ALEXI PRN Reason: Protocol Last Admin: 08/12/17 10:06 Dose: 400 mg Guaifenesin (Robitussin) 100 mg PO Q4H PRN PRN Reason: Cough Last Admin: 08/12/17 10:12 Dose: 100 mg Sodium Chloride (Sodium Chloride 0.9%) 1,000 mls @ 100 mls/hr IV .Q10H ALEXI Last Admin: 08/12/17 07:00 Dose: 100 mls/hr Levofloxacin/Dextrose (Levaquin 250mg) 250 mg in 50 mls @ 100 mls/hr IVPB QOTHERDAY ALEXI PRN Reason: Protocol Last Admin: 08/12/17 10:05 Dose: 100 mls/hr Methylprednisolone (Solu-Medrol) 20 mg IVP Q8 ALEXI Metoprolol Tartrate (Lopressor) 25 mg PO BID ALEXI Last Admin: 08/12/17 10:05 Dose: 25 mg Ondansetron HCl (Zofran Inj) 4 mg IVP Q6H PRN PRN Reason: Nausea/Vomiting Oxycodone HCl (Oxycodone Immediate Release Tab) 30 mg PO TID PRN PRN Reason: Pain, moderate (4-7) Last Admin: 08/12/17 10:07 Dose: 30 mg Pantoprazole Sodium (Protonix Ec Tab) 40 mg PO BID ALEXI Last Admin: 08/12/17 10:07 Dose: 40 mg Zolpidem Tartrate (Ambien) 5 mg PO HS ALEXI PRN Reason: Protocol Last Admin: 08/12/17 01:17 Dose: 5 mg - Labs Labs: 08/12/17 06:00 08/12/17 06:00 PT 16.3 SECONDS (9.4-12.5) H 08/11/17 15:15 INR 1.42 (0.93-1.08) H 08/11/17 15:15 APTT 35.6 Seconds (25.1-36.5) 08/11/17 15:15 - Constitutional Appears: Well - Head Exam Head Exam: ATRAUMATIC, NORMAL INSPECTION, NORMOCEPHALIC - Eye Exam Eye Exam: EOMI, Normal appearance, PERRL Pupil Exam: NORMAL ACCOMODATION, PERRL - ENT Exam ENT Exam: Mucous Membranes Moist, Normal Exam - Neck Exam Neck Exam: Full ROM, Normal Inspection. absent: Lymphadenopathy - Respiratory Exam Respiratory Exam: Clear to Ausculation Bilateral, NORMAL BREATHING PATTERN - Cardiovascular Exam Cardiovascular Exam: REGULAR RHYTHM, +S1, +S2. absent: Murmur - GI/Abdominal Exam GI & Abdominal Exam: Soft, Normal Bowel Sounds. absent: Tenderness - Extremities Exam Extremities Exam: Full ROM, Normal Capillary Refill, Normal Inspection. absent : Joint Swelling, Pedal Edema - Back Exam Back Exam: NORMAL INSPECTION - Neurological Exam Neurological Exam: Alert, Awake, CN II-XII Intact, Normal Gait, Oriented x3 - Psychiatric Exam Psychiatric exam: Normal Affect, Normal Mood - Skin Skin Exam: Dry, Intact, Normal Color, Warm Assessment and Plan - Assessment and Plan (Free Text) Assessment: Assessment and Plan 62 year old female with extensive medical history presenting with bronchial spasm and JOSEFINA Dyspnea, likely 2/2 PNA VS Upper airway irritation VS Asthma - Repeated ABG this AM - Albuterol IH q6 JOSEFINA, likely 2/2 Prerenal azotemia due to poor po intake. Baseline around .6 - Metabolic acidosis with AG of 14.5 corrected for albumin - CR down to 2.8 from 4 - Continue fluid resuscitation Hyperkalemia, likely 2/2 JOSEFINA -Kayexalate UTI - Diflucan Hx A-Fib - Eliquis, Metoprolol Hx HTN - Hold Losartan 2/2 JOSEFINA - Patient normotensive for now, continue to monitor <Kathe Garcia B - Last Filed: 08/12/17 17:34> Objective - Vital Signs/Intake and Output Vital Signs (last 24 hours): Temp Pulse Resp BP Pulse Ox 98.8 F 82 15 102/55 L 98 08/12/17 02:30 08/12/17 16:17 08/12/17 16:17 08/12/17 10:05 08/12/17 02:17 - Medications Medications: Current Medications Albuterol Sulfate (Albuterol 0.083% Inhal Angella (2.5 Mg/3 Ml) Ud) 2.5 mg INH [id number] PRN PRN Reason: Shortness of Breath Apixaban (Eliquis) 5 mg PO BID ALEXI PRN Reason: Protocol Last Admin: 08/12/17 10:07 Dose: 5 mg Ergocalciferol (Drisdol 50,000 Intl Units Cap) 50,000 cap PO QWK ALEXI Gabapentin (Neurontin) 400 mg PO TID ALEXI PRN Reason: Protocol Last Admin: 08/12/17 14:00 Dose: 400 mg Guaifenesin (Robitussin) 100 mg PO Q4H PRN PRN Reason: Cough Last Admin: 08/12/17 16:39 Dose: 100 mg Sodium Chloride (Sodium Chloride 0.9%) 1,000 mls @ 100 mls/hr IV .Q10H ALEXI Last Admin: 08/12/17 07:00 Dose: 100 mls/hr Levofloxacin/Dextrose (Levaquin 250mg) 250 mg in 50 mls @ 100 mls/hr IVPB QOTHERDAY ALEXI PRN Reason: Protocol Last Admin: 08/12/17 10:05 Dose: 100 mls/hr Methylprednisolone (Solu-Medrol) 20 mg IVP Q8 ALEXI Last Admin: 08/12/17 16:39 Dose: 20 mg Ondansetron HCl (Zofran Inj) 4 mg IVP Q6H PRN PRN Reason: Nausea/Vomiting Oxycodone HCl (Oxycodone Immediate Release Tab) 30 mg PO TID PRN PRN Reason: Pain, moderate (4-7) Last Admin: 08/12/17 10:07 Dose: 30 mg Pantoprazole Sodium (Protonix Ec Tab) 40 mg PO BID ALEXI Last Admin: 08/12/17 10:07 Dose: 40 mg Zolpidem Tartrate (Ambien) 5 mg PO HS ALEXI PRN Reason: Protocol Last Admin: 08/12/17 01:17 Dose: 5 mg - Labs Labs: 08/12/17 06:00 08/12/17 16:45 PT 16.3 SECONDS (9.4-12.5) H 08/11/17 15:15 INR 1.42 (0.93-1.08) H 08/11/17 15:15 APTT 35.6 Seconds (25.1-36.5) 08/11/17 15:15 Attending/Attestation - Attestation I have personally seen and examined this patient.: Yes I have fully participated in the care of the patient.: Yes I have reviewed all pertinent clinical information, including history, physical exam and plan: Yes Notes (Text): I have seen and examined the patient at bedside. 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 Patient appears to be in no distress. Stridor has resolved. ENT eval appreciated. Patient is on steroids and antibiotics. Flu negative. Sputum culture is pending. V/Q scan show low probability scan. CT chest revealed no consolidation however esophageal dilatation was noted. Discussed with radiologist. Patient had similar findings in the past. GI consult pending. Patient is making urine. Continue IVF. Creatinine is improving. Continue eliquis for atrial fibrillation. Upon discharge patient will follow up with Dr Cohen. Dr Kathe Garcia
[2017-08-12] MEDS ORDERED: Sod Polystyrene Sulf 15 gm/60 ml Susp PO ONE (15:15)
[2017-08-12] MEDS: MethylPREDNISolone 40 mg Vial IVP SCH ×2 (16:39→21:57)
[2017-08-12 17:05] LABS: IRON 77 ug/dL (45-180)
--- NOTE | 2017-08-12 17:08 | CP.PCM.CON ---
History of Present Illness - History of Present Illness History of Present Illness: Nephrology Consultation Note: Assessment: Stable Acute Kidney Injury (N17.9) likely hemodynamic with low blood pressure: improving Hyperkalemia and acidosis (combined respi and metabolic) History of protein C deficiency and DVT and IVC filter history of rhabdomyolysis in the past, resolved off statins HTN Plan No acute need for renal replacement therapy at this time. hold BP meds as BP on low side continue with IVF no ACEI/ARB in future for her as pt with recurrent AKIs. may consider ambulatory BP as outpt to assess white coat HTN. check renal artery doppler to r/o b/l cheri lupus serology neg last year with normal complements. anca/hep b & c and hiv had been neg Anemia work up as ordered pt on weekly vit D supplements Dose meds/antibiotics for reduced GFR. Avoid nephrotoxins/NSAIDs Glycemic control Further work up/management as per primary team Thanks for allowing me to participate in care of your patient. Please call if any Qs. will follow up with you. d/w team Dr Junior Szymanski Office: [phone] Chief Complaint; Cough and SOB Reason for consult is JOSEFINA HPI: Pt is a 62-year-old female history of hypertension for many years protein C deficiency with Recurrent DVTs status post IVC filter also history of recurrent AK I in the past with rhabdomyolysis which has improved since she is off statins recently admitted for JOSEFINA due to low BP (improved with IVF) presented with complaints of Cough and SOB. She feels better at this time shortness of breath is better cough is better Denies OTC/herbal meds or NSAIDs No recent iodinated contrast exposure. Bp mostly okay and on low side ROS: Cardiovascular: No chest pain. Pulmonary: No shortness of breath . has cough Gastrointestinal: denies abdominal pain No nausea. No vomiting. Genitourinary: No pain while urinating. Denies blood in urine. All other negative except as mentioned in HPI Physical Examination: General Appearance: Comfortable, in no acute respiratory distress, co-operative . She is obese Vitals reviewed and noted as below Head; Atraumatic, normocephalic ENT: no ulcers no thrush. Tongue is midline. Oropharynx: no rash or ulcers. EYES: Pupils are equal, round and reactive to light accommodation. Eye muscles and extraocular movement intact. Sclera is anicteric. Neck; supple no lymphadenopathy, no thyromegaly or bruit Lungs: Normal respiratory rate/effort. Breath sounds bilateral equal and clear Heart: Normal rate. s1s2 normal. No rub or gallop. Extremities: no edema. No varicose veins Neurological: Patient is alert, awake and oriented to person, place and time. No focal deficit. Strength bilateral appropriate and equal Skin: Warm and dry. Normal turgor. No rash. Palpitation: Normal elasticity for age Abdomen: Abdomen is soft. Bowel sounds +. There is no abdominal tenderness, no guarding/rigidity no organomegaly Psych: normal insight and normal affect/mood MSK: no joint tenderness or swelling. Digits and nails normal, no deformity : kidney or bladder not palpable Labs/imaging reviewed. Past medical history, past surgical history, family history, social history, allergy reviewed and noted as below Family hx: no hx of CKD. Rest non-contributory Past Patient History - Infectious Disease Hx of Infectious Diseases: None - Tetanus Immunizations Tetanus Immunization: Unknown - Past Medical History & Family History Past Medical History?: Yes - Past Social History Smoking Status: Never Smoked - CARDIAC Hx Pacemaker: No - PULMONARY Hx Respiratory Disorders: Yes Hx Asthma: Yes Hx Bronchitis: No Hx Chronic Obstructive Pulmonary Disease (COPD): No Hx Emphysema: No Hx Pneumonia: Yes Hx Respiratory Aspiration: No Hx Respiratory Tract Infection: No Hx Sleep Apnea: No Hx Tuberculosis: No - NEUROLOGICAL Hx Neurological Disorder: Yes Hx Alzheimer's Disease: No HX Cerebrovascular Accident: Yes Hx Dementia: No Hx Dizziness: No Hx Meningitis: No Hx Migraine: No Hx Parkinson's Disease: Yes Hx Seizures: No Hx Transient Ischemic Attacks (TIA): Yes - HEENT Hx HEENT Problems: Yes Hx Blind: Yes Hx Cataracts: No Hx Deafness: No Hx Difficulty Chewing: No Hx Epistaxis: No Hx Glaucoma: No Hx Macular Degeneration: No Other/Comment: Tonsillectomy - RENAL Hx Chronic Kidney Disease: Yes Hx Dialysis: No Hx Kidney Stones: No Hx Neurogenic Bladder: No Hx Pyelonephritis: No Hx Renal (Kidney) Cancer: No Hx Renal Failure: Yes Other/Comment: Renal Insufficiency - ENDOCRINE/METABOLIC Hx Endocrine Disorders: No Hx Adrenal Cancer: No Hx Diabetes Insipidus: No Hx Diabetes Mellitus Type 1: No Hx Diabetes Mellitus Type 2: No Hx Hyperthyroidism: No Hx Hypothyroidism: No Hx Systemic Lupus Erythematosus: No - HEMATOLOGICAL/ONCOLOGICAL Hx Cancer: No - INTEGUMENTARY Hx Dermatological Problems: No Hx Basil Cell: No Hx Eczema: No Hx Melanoma: No Hx Psoriasis: No Hx Squamous Cell: No - MUSCULOSKELETAL/RHEUMATOLOGICAL Hx Musculoskeletal Disorders: Yes Hx Arthritis: Yes Hx Back Pain: Yes Hx Degenerative Joint Disease: No Hx Falls: No Hx Fractures: No Hx Gout: No Hx Herniated Disk: Yes Hx Myasthenia Gravis: No Hx Osteoarthritis: Yes Hx Osteomyelitis: No Hx Osteoporosis: No Hx Rhabdomyolysis: Yes Hx Spinal Stenosis: No Hx Unsteady Gait: Yes Other/Comment: 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 Utilizes a cane for ambulation. herniated disks to neck and back. - GASTROINTESTINAL Hx Gastrointestinal Disorders: Yes Hx Colostomy: No Hx Crohn's Disease: No Hx Diverticulitis: No Hx Gall Bladder Disease: Yes Hx Gastroesophageal Reflux: Yes Hx Ileostomy: No Hx Liver Failure: No Hx Pancreatitis: No HX Swallowing Problems: No Hx Ulcer: No Other/Comment: Gastric Bypass Surgery. Appetite Changes. Weight Loss. - GENITOURINARY/GYNECOLOGICAL Hx Genitourinary Disorders: No Hx Hematuria: No Hx Incontinence: No Hx Sexually Transmitted Disorders: No Hx Urinary Tract Infection: Yes - PSYCHIATRIC Hx Psychophysiologic Disorder: No Hx Anxiety: No Hx Bipolar Disorder: No Hx Depression: No Hx Emotional Abuse: No Hx Hallucinations: No Hx Panic Symptoms: No Hx Paranoia: No Hx Post Traumatic Stress Disorder: No Hx Psychosis: No Hx Physical Abuse: No Hx Schizophrenia: No Hx Sexual Abuse: No Hx Substance Use: No - SURGICAL HISTORY Hx Mastectomy: No - ANESTHESIA Hx Anesthesia: Yes Hx Anesthesia Reactions: No Hx Malignant Hyperthermia: No Meds Allergies/Adverse Reactions: Allergies Allergy/AdvReac Type Severity Reaction Status Date / Time Penicillins Allergy ANGIOEDEMA/SHORTNESS Verified 08/11/17 14:14 OF BREATH - Medications Medications: Current Medications Albuterol Sulfate (Albuterol 0.083% Inhal Angella (2.5 Mg/3 Ml) Ud) 2.5 mg INH [id number] PRN PRN Reason: Shortness of Breath Apixaban (Eliquis) 5 mg PO BID ALEXI PRN Reason: Protocol Last Admin: 08/12/17 10:07 Dose: 5 mg Ergocalciferol (Drisdol 50,000 Intl Units Cap) 50,000 cap PO QWK ALEXI Gabapentin (Neurontin) 400 mg PO TID [facility] PRN Reason: Protocol Last Admin: 08/12/17 14:00 Dose: 400 mg Guaifenesin (Robitussin) 100 mg PO Q4H PRN PRN Reason: Cough Last Admin: 08/12/17 16:39 Dose: 100 mg Sodium Chloride (Sodium Chloride 0.9%) 1,000 mls @ 100 mls/hr IV .Q10H [facility] Last Admin: 08/12/17 07:00 Dose: 100 mls/hr Levofloxacin/Dextrose (Levaquin 250mg) 250 mg in 50 mls @ 100 mls/hr IVPB QOTHERDAY [facility] PRN Reason: Protocol Last Admin: 08/12/17 10:05 Dose: 100 mls/hr Methylprednisolone (Solu-Medrol) 20 mg IVP Q8 [facility] Last Admin: 08/12/17 16:39 Dose: 20 mg Metoprolol Tartrate (Lopressor) 25 mg PO BID [facility] Last Admin: 08/12/17 10:05 Dose: 25 mg Ondansetron HCl (Zofran Inj) 4 mg IVP Q6H PRN PRN Reason: Nausea/Vomiting Oxycodone HCl (Oxycodone Immediate Release Tab) 30 mg PO TID PRN PRN Reason: Pain, moderate (4-7) Last Admin: 08/12/17 10:07 Dose: 30 mg Pantoprazole Sodium (Protonix Ec Tab) 40 mg PO BID [facility] Last Admin: 08/12/17 10:07 Dose: 40 mg Zolpidem Tartrate (Ambien) 5 mg PO HS [facility] PRN Reason: Protocol Last Admin: 08/12/17 01:17 Dose: 5 mg Results - Vital Signs Recent Vital Signs: Last Vital Signs Temp 98.8 F 08/12/17 02:30 Pulse 82 08/12/17 16:17 Resp 15 08/12/17 16:17 BP 102/55 L 08/12/17 10:05 Pulse Ox 98 08/12/17 02:17 - Labs Result Diagrams: 08/12/17 06:00 08/12/17 06:00 Labs: Laboratory Results - last 24 hr 08/12/17 08/12/17 08/12/17 06:00 06:00 11:38 WBC 10.2 RBC 3.66 Hgb 11.2 L Hct 34.6 L MCV 94.5 MCH 30.6 MCHC 32.4 RDW 13.5 Plt Count 222 MPV 9.4 Gran % 88.1 H Lymph % (Auto) 10.9 L [place] % (Auto) 1.0 Eos % (Auto) 0.0 L Baso % (Auto) 0.0 Gran # 9.01 H Lymph # (Auto) 1.1 L [place] # (Auto) 0.1 Eos # (Auto) 0.0 Baso # (Auto) 0.00 Sodium 134 Potassium 5.4 H Chloride 101 Carbon Dioxide 18 L Anion Gap 21 H BUN 44 H Creatinine 2.8 H Est GFR ( Amer) 21 Est GFR (Non-Af Amer) 17 POC Glucose (mg/dL) 165 H Random Glucose 149 H Calcium 9.8 Phosphorus 7.7 H Magnesium 2.3 H Total Bilirubin 0.7 AST 40 H ALT 24 Alkaline Phosphatase 90 Total Protein 8.1 Albumin 4.2 Globulin 3.9 Albumin/Globulin Ratio 1.1 08/12/17 08/12/17 08/12/17 12:27 13:35 15:41 WBC RBC Hgb Hct MCV MCH MCHC RDW Plt Count MPV Gran % Lymph % (Auto) [place] % (Auto) Eos % (Auto) Baso % (Auto) Gran # Lymph # (Auto) [place] # (Auto) Eos # (Auto) Baso # (Auto) Sodium Potassium Chloride Carbon Dioxide Anion Gap BUN Creatinine Est GFR ( Amer) Est GFR (Non-Af Amer) POC Glucose (mg/dL) 138 H 91 85 Random Glucose Calcium Phosphorus Magnesium Total Bilirubin AST ALT Alkaline Phosphatase Total Protein Albumin Globulin Albumin/Globulin Ratio
[2017-08-12 17:22] LABS: % IRON SATURATION 35 % (20-55); ALB/GLOB RATIO 1.1 (1.1-1.8); CALCIUM 9.3 mg/dL (8.4-10.5); TOTAL IRON BINDING CAPACITY 217 ug/dL (265-497)
[2017-08-12] MEDS: Albuterol 0.083% Inhal Sol (2.5 mg/3 mL) UD INH PRN (18:13)
--- NOTE | 2017-08-13 01:09 | CON ---
DATE: 08/12/2017 GASTROENTEROLOGY CONSULTATION REQUESTING PHYSICIAN: Shon Conteh MD REASON FOR CONSULTATION: I have been asked to see this 62-year-old female with a history of atrial fibrillation, DVT, IVC filter, CVA, protein C deficiency, asthma, hyperlipidemia and hypertension, for an incidental finding of a dilated fluid-filled esophagus on CAT scan of the chest. The CT scan of the chest was performed because of the patient's presenting complaint of shortness of breath with intractable cough for 4 to 5 days. The patient currently denies any dysphagia, excessive belching, hiccups, regurgitation or odynophagia. The patient currently is tolerating solid foods. The patient does have a history of gastric bypass over 30 years ago for obesity. The patient had a endoscopy in 03/2016, which revealed a hiatal hernia and a postsurgical gastric bypass stomach with a small gastric pouch. She also had a colonoscopy in 03/2016, which revealed diverticulosis. Patient admits to several days of vomiting approximately 1 week ago. She admits to diarrhea 1 week prior to that, both the diarrhea and vomiting have resolved. The patient denies any further cough. She was noted to have elevated BUN and creatinine, which she has had in the past. She denies any fevers, chills, hematemesis, melena or rectal bleeding. PAST MEDICAL HISTORY: As above. Again, the patient has a history of protein C deficiency, atrial fibrillation, DVT, CVA, IVC filter, asthma, hypertension, warfarin-induced necrosis of the fingers. PAST SURGICAL HISTORY: Notable for bilateral mastectomy, amputation of her fourth digits bilaterally, gastric bypass, tonsillectomy. FAMILY HISTORY: Notable for mother with breast cancer. Father with metastatic cancer, unknown primary. SOCIAL HISTORY: The patient denies cigarette smoking or alcohol use. REVIEW OF SYSTEMS: Fourteen-point review of systems notable for shortness of breath, cough. She denies dysphagia, odynophagia, belching or heartburn. MEDICATIONS: At home include Diovan 80 mg once a day, Protonix 40 mg b.i.d., metoprolol 25 mg twice a day, Neurontin 400 mg three times a day, vitamin D 50,000 units weekly, Cepacol lozenges as needed for sore throat, Eliquis 5 mg b.i.d., oxycodone 30 mg t.i.d., guaifenesin 100 mg q. 4 hours as needed, Ambien 10 mg at bedtime. PHYSICAL EXAMINATION: GENERAL: Pleasant, well-developed female, lying in bed, taking lunch, in no acute distress. VITAL SIGNS: Afebrile. Blood pressure 102/55, heart rate 96. HEENT: Sclerae to be white. Conjunctivae pink. NECK: Supple. CHEST: Reveals lungs to be clear. HEART: Reveals an irregular rate. ABDOMEN: Soft, nontender. EXTREMITIES: Show no edema. She has amputation of both fourth digits of her hands. LABORATORY DATA: Reveal white blood cell count 10.2, hemoglobin 11.2. Coag showed PT 16.3, INR 1.42. Chemistries reveal BUN 44, creatinine 2.8. AST is elevated at 40, ALT 24. CBC reveals white blood cell count 10.2, hemoglobin 11.2. IMPRESSION: A 62-year-old female with multiple medical problems including protein C deficiency, history of atrial fibrillation, history of cerebrovascular accident, hypertension, asthma, deep vein thrombosis, with a dilated fluid filled esophagus on CT scan of the chest. The patient is asymptomatic from this. She did have an endoscopy back in March 2016, which revealed a hiatal hernia and a gastric pouch as a result of gastric bypass surgery. RECOMMENDATIONS: We will schedule the patient for an upper endoscopy to rule out a lesion in the distal esophagus. Orestes Mendoza MD
[2017-08-13] MEDS: oxyCODONE 30 mg Immediate Release Tab PO PRN ×2 (02:14→13:57)
[2017-08-13] MEDS: guaiFENesin 100 mg/5 ml Syrup UD PO PRN (02:15)
[2017-08-13] MEDS: Albuterol 0.083% Inhal Sol (2.5 mg/3 mL) UD INH PRN (02:42)
[2017-08-13] MEDS: Sodium Chloride 0.9% 1,000 ML IV SCH ×2 (03:00→14:28)
[2017-08-13 03:36] LABS: CALCIUM 9.3 mg/dL (8.4-10.5)
[2017-08-13] MEDS ORDERED: Dextrose 50% SYRINGE Inj (50 ml) IVP STA (04:00)
[2017-08-13] MEDS ORDERED: Insulin Regular 1 UNITS/0.01 ML ML IV STA ×2 (04:06→08:00)
[2017-08-13] MEDS: MethylPREDNISolone 40 mg Vial IVP SCH ×2 (05:00→21:24)
[2017-08-13] MEDS ORDERED: Sod Polystyrene Sulf 15 gm/60 ml Susp PO ONE (07:56)
[2017-08-13] MEDS ORDERED: Dextrose 50% SYRINGE Inj (50 ml) IVP ONE (08:01)
[2017-08-13 09:24] LABS: CALCIUM 9.7 mg/dL (8.4-10.5)
[2017-08-13] MEDS ORDERED: Propofol 10 mg/ml Inj (20 ML) ONE (09:30)
[2017-08-13] MEDS ORDERED: Etomidate 20 mg/10ml Inj IV ONE (09:31)
--- NOTE | 2017-08-13 10:47 | CARD ---
APPROVED REPORT EKG Measurement Heart [id number] <Conclusion> Normal sinus rhythm Normal ECG
[2017-08-13] MEDS: Pantoprazole 40 mg EC Tab PO SCH ×2 (12:02→17:09)
[2017-08-13] MEDS: Nystatin 100,000 Units/ml Oral Susp 5 ml UD PO SCH ×4 (12:02→21:25)
--- NOTE | 2017-08-13 13:51 | CP.PCM.PN ---
Subjective - Date & Time of Evaluation Date of Evaluation: 08/13/17 Time of Evaluation: 13:44 - Subjective Subjective: Nephrology Consultation Note: Assessment: Stable Acute Kidney Injury (N17.9) likely hemodynamic with low blood pressure: improving Hyperkalemia and acidosis (combined respi and metabolic) History of protein C deficiency and DVT and IVC filter history of rhabdomyolysis in the past, resolved off statins HTN Plan No acute need for renal replacement therapy at this time. resume lopressor as BP better and to avoid continue with IVF, d/c by tomorrow no ACEI/ARB in future for her as pt with recurrent AKIs. may consider ambulatory BP as outpt to assess white coat HTN. check renal artery doppler to r/o b/l cheri lupus serology neg last year with normal complements. anca/hep b & c and hiv had been neg Anemia work up as ordered pt on weekly vit D supplements Dose meds/antibiotics for reduced GFR. Avoid nephrotoxins/NSAIDs Glycemic control Further work up/management as per primary team Thanks for allowing me to participate in care of your patient. Please call if any Qs. will follow up with you. d/w team Dr Junior Szymanski Office: [phone] Chief Complaint; Cough and SOB Reason for consult is JOSEFINA HPI: Pt is a 62-year-old female history of hypertension for many years protein C deficiency with Recurrent DVTs status post IVC filter also history of recurrent JOSEFINA in the past with rhabdomyolysis which has improved since she is off statins recently admitted for JOSEFINA due to low BP (improved with IVF) presented with complaints of Cough and SOB. She feels better at this time shortness of breath is better cough is better Denies OTC/herbal meds or NSAIDs No recent iodinated contrast exposure. Bp mostly okay and on low side ROS: Cardiovascular: No chest pain. Pulmonary: No shortness of breath . improved cough Gastrointestinal: denies abdominal pain No nausea. No vomiting. Genitourinary: No pain while urinating. Denies blood in urine. All other negative except as mentioned in HPI Physical Examination: General Appearance: Comfortable, in no acute respiratory distress, co-operative . She is obese Vitals reviewed and noted as below Head; Atraumatic, normocephalic ENT: no ulcers no thrush. Tongue is midline. Oropharynx: no rash or ulcers. EYES: Pupils are equal, round and reactive to light accommodation. Eye muscles and extraocular movement intact. Sclera is anicteric. Neck; supple no lymphadenopathy, no thyromegaly or bruit Lungs: Normal respiratory rate/effort. Breath sounds bilateral equal and clear Heart: Normal rate. s1s2 normal. No rub or gallop. Extremities: no edema. No varicose veins Neurological: Patient is alert, awake and oriented to person, place and time. No focal deficit. Strength bilateral appropriate and equal Skin: Warm and dry. Normal turgor. No rash. Palpitation: Normal elasticity for age Abdomen: Abdomen is soft. Bowel sounds +. There is no abdominal tenderness, no guarding/rigidity no organomegaly Psych: normal insight and normal affect/mood MSK: no joint tenderness or swelling. Digits and nails normal, no deformity : kidney or bladder not palpable Labs/imaging reviewed. Past medical history, past surgical history, family history, social history, allergy reviewed and noted as below Family hx: no hx of CKD. Rest non-contributory TSAT 35% Ferritin 433 Objective - Vital Signs/Intake and Output Vital Signs (last 24 hours): Temp Pulse Resp BP Pulse Ox 98.2 F 88 22 132/92 H 98 08/13/17 09:31 08/13/17 09:31 08/12/17 19:05 08/13/17 09:31 08/13/17 09:31 Intake and Output: 08/13/17 08/13/17 06:59 18:59 Intake Total 1200 Output Total 1800 Balance -600 - Medications Medications: Current Medications Albuterol Sulfate (Albuterol 0.083% Inhal Angella (2.5 Mg/3 Ml) Ud) 2.5 mg INH [id number] PRN PRN Reason: Shortness of Breath Last Admin: 08/13/17 02:42 Dose: 2.5 mg Apixaban (Eliquis) 5 mg PO BID ALEXI PRN Reason: Protocol Last Admin: 08/13/17 12:02 Dose: 5 mg Ergocalciferol (Drisdol 50,000 Intl Units Cap) 50,000 cap PO QWK ALEXI Fluconazole (Diflucan) 100 mg PO DAILY ALEXI PRN Reason: Protocol Last Admin: 08/13/17 12:21 Dose: 100 mg Gabapentin (Neurontin) 400 mg PO TID ALEXI PRN Reason: Protocol Last Admin: 08/13/17 12:02 Dose: 400 mg Guaifenesin (Robitussin) 100 mg PO Q4H PRN PRN Reason: Cough Last Admin: 08/13/17 02:15 Dose: 100 mg Sodium Chloride (Sodium Chloride 0.9%) 1,000 mls @ 100 mls/hr IV .Q10H [facility] Last Admin: 08/13/17 03:00 Dose: 100 mls/hr Levofloxacin/Dextrose (Levaquin 250mg) 250 mg in 50 mls @ 100 mls/hr IVPB QOTHERDAY [facility] PRN Reason: Protocol Last Admin: 08/12/17 10:05 Dose: 100 mls/hr Methylprednisolone (Solu-Medrol) 20 mg IVP Q12 [facility] Metoclopramide HCl (Reglan) 5 mg IVP ACHS [facility] Last Admin: 08/13/17 12:05 Dose: 5 mg Nystatin (Nystatin Oral Susp) 5 ml PO QID [facility] Last Admin: 08/13/17 12:02 Dose: 5 ml Ondansetron HCl (Zofran Inj) 4 mg IVP Q6H PRN PRN Reason: Nausea/Vomiting Oxycodone HCl (Oxycodone Immediate Release Tab) 30 mg PO TID PRN PRN Reason: Pain, moderate (4-7) Last Admin: 08/13/17 02:14 Dose: 30 mg Pantoprazole Sodium (Protonix Ec Tab) 40 mg PO BID [facility] Last Admin: 08/13/17 12:02 Dose: 40 mg Zolpidem Tartrate (Ambien) 5 mg PO HS [facility] PRN Reason: Protocol Last Admin: 08/12/17 21:56 Dose: 5 mg - Labs Labs: 08/12/17 06:00 08/13/17 09:00 PT 16.3 SECONDS (9.4-12.5) H 08/11/17 15:15 INR 1.42 (0.93-1.08) H 08/11/17 15:15 APTT 35.6 Seconds (25.1-36.5) 08/11/17 15:15
--- NOTE | 2017-08-13 14:34 | CP.PCM.PN ---
<Ra Steele Brie - Last Filed: 08/13/17 14:38> Subjective - Date & Time of Evaluation Date of Evaluation: 08/13/17 Time of Evaluation: 14:31 - Subjective Subjective: Medicine Progress Note - Dr. Garcia Patient seen and examined at bedside. No acute events overnight. No further complaints at this time. Objective - Vital Signs/Intake and Output Vital Signs (last 24 hours): Temp Pulse Resp BP Pulse Ox 98.2 F 109 H 22 136/75 98 08/13/17 09:31 08/13/17 13:54 08/12/17 19:05 08/13/17 13:54 08/13/17 09:31 Intake and Output: 08/13/17 08/13/17 06:59 18:59 Intake Total 1200 Output Total 1800 Balance -600 - Medications Medications: Current Medications Albuterol Sulfate (Albuterol 0.083% Inhal Angella (2.5 Mg/3 Ml) Ud) 2.5 mg INH [id number] PRN PRN Reason: Shortness of Breath Last Admin: 08/13/17 02:42 Dose: 2.5 mg Apixaban (Eliquis) 5 mg PO BID [facility] PRN Reason: Protocol Last Admin: 08/13/17 12:02 Dose: 5 mg Ergocalciferol (Drisdol 50,000 Intl Units Cap) 50,000 cap PO QWK [facility] Fluconazole (Diflucan) 100 mg PO DAILY [facility] PRN Reason: Protocol Last Admin: 08/13/17 12:21 Dose: 100 mg Gabapentin (Neurontin) 400 mg PO TID [facility] PRN Reason: Protocol Last Admin: 08/13/17 13:50 Dose: 400 mg Guaifenesin (Robitussin) 100 mg PO Q4H PRN PRN Reason: Cough Last Admin: 08/13/17 02:15 Dose: 100 mg Sodium Chloride (Sodium Chloride 0.9%) 1,000 mls @ 100 mls/hr IV .Q10H [facility] Last Admin: 08/13/17 14:28 Dose: 100 mls/hr Levofloxacin/Dextrose (Levaquin 250mg) 250 mg in 50 mls @ 100 mls/hr IVPB QOTHERDAY [facility] PRN Reason: Protocol Last Admin: 08/12/17 10:05 Dose: 100 mls/hr Methylprednisolone (Solu-Medrol) 20 mg IVP Q12 [facility] Metoclopramide HCl (Reglan) 5 mg IVP ACHS [facility] Last Admin: 08/13/17 12:05 Dose: 5 mg Metoprolol Tartrate (Lopressor) 25 mg PO BRKDIN [facility] Last Admin: 08/13/17 13:54 Dose: 25 mg Nystatin (Nystatin Oral Susp) 5 ml PO QID [facility] Last Admin: 08/13/17 13:52 Dose: 5 ml Ondansetron HCl (Zofran Inj) 4 mg IVP Q6H PRN PRN Reason: Nausea/Vomiting Oxycodone HCl (Oxycodone Immediate Release Tab) 30 mg PO TID PRN PRN Reason: Pain, moderate (4-7) Last Admin: 08/13/17 13:57 Dose: 30 mg Pantoprazole Sodium (Protonix Ec Tab) 40 mg PO BID [facility] Last Admin: 08/13/17 12:02 Dose: 40 mg Zolpidem Tartrate (Ambien) 5 mg PO HS [facility] PRN Reason: Protocol Last Admin: 08/12/17 21:56 Dose: 5 mg - Labs Labs: 08/12/17 06:00 08/13/17 09:00 PT 16.3 SECONDS (9.4-12.5) H 08/11/17 15:15 INR 1.42 (0.93-1.08) H 08/11/17 15:15 APTT 35.6 Seconds (25.1-36.5) 08/11/17 15:15 - Constitutional Appears: Well - Head Exam Head Exam: ATRAUMATIC, NORMAL INSPECTION, NORMOCEPHALIC - Eye Exam Eye Exam: EOMI, Normal appearance, PERRL Pupil Exam: NORMAL ACCOMODATION, PERRL - ENT Exam ENT Exam: Mucous Membranes Moist, Normal Exam - Neck Exam Neck Exam: Full ROM, Normal Inspection. absent: Lymphadenopathy - Respiratory Exam Respiratory Exam: Clear to Ausculation Bilateral, NORMAL BREATHING PATTERN - Cardiovascular Exam Cardiovascular Exam: REGULAR RHYTHM, +S1, +S2. absent: Murmur - GI/Abdominal Exam GI & Abdominal Exam: Soft, Normal Bowel Sounds. absent: Tenderness - Extremities Exam Extremities Exam: Full ROM, Normal Capillary Refill, Normal Inspection. absent : Joint Swelling, Pedal Edema - Back Exam Back Exam: NORMAL INSPECTION - Neurological Exam Neurological Exam: Alert, Awake, CN II-XII Intact, Normal Gait, Oriented x3 - Psychiatric Exam Psychiatric exam: Normal Affect, Normal Mood - Skin Skin Exam: Dry, Intact, Normal Color, Warm Assessment and Plan - Assessment and Plan (Free Text) Assessment: 62 year old female with extensive medical history presenting with bronchial spasm and JOSEFINA Dyspnea, likely 2/2 PNA VS Upper airway irritation VS Asthma - Repeated ABG this AM - Albuterol IH q6 - EGD done today JOSEFINA, likely 2/2 Prerenal azotemia due to poor po intake. Baseline around .6 - Metabolic acidosis with AG of 14.5 corrected for albumin - CR down to 1.2 from 4 - Continue fluid resuscitation - Nephro consult: Dr. Szymanski No acute need for renal replacement therapy at this time. Resume lopressor as BP better and to avoid Continue with IVF, d/c by tomorrow No ACEI/ARB in future for her as pt with recurrent AKIs. may consider ambulatory BP as outpt to assess white coat HTN. Check renal artery doppler to r/o b/l cheri Lupus serology neg last year with normal complements. anca/hep b & c and hiv had been neg Anemia work up as ordered Pt on weekly vit D supplements Dose meds/antibiotics for reduced GFR. Avoid nephrotoxins/NSAIDs Glycemic control Further work up/management as per primary team Hyperkalemia, likely 2/2 JOSEFINA - Resolved -Kayexalate prn UTI - Diflucan Hx A-Fib - Eliquis, Metoprolol Hx HTN - Hold Losartan 2/2 JOSEFINA - Patient normotensive for now, continue to monitor <Kathe Garcia B - Last Filed: 08/14/17 18:23> Objective - Vital Signs/Intake and Output Vital Signs (last 24 hours): Temp Pulse Resp BP Pulse Ox 98.6 F 78 20 116/68 100 08/14/17 07:57 08/14/17 10:29 08/14/17 07:57 08/14/17 10:29 08/14/17 07:57 Intake and Output: 08/14/17 08/14/17 06:59 18:59 Intake Total 1020 Balance 1020 - Medications Medications: Current Medications Albuterol Sulfate (Albuterol 0.083% Inhal Angella (2.5 Mg/3 Ml) Ud) 2.5 mg INH [id number] PRN PRN Reason: Shortness of Breath Last Admin: 08/14/17 11:37 Dose: 2.5 mg Apixaban (Eliquis) 5 mg PO BID [facility] PRN Reason: Protocol Last Admin: 08/14/17 13:26 Dose: 5 mg Ergocalciferol (Drisdol 50,000 Intl Units Cap) 50,000 cap PO QWK [facility] Fluconazole (Diflucan) 100 mg PO DAILY [facility] PRN Reason: Protocol Last Admin: 08/14/17 10:27 Dose: 100 mg Gabapentin (Neurontin) 400 mg PO TID [facility] PRN Reason: Protocol Last Admin: 08/14/17 10:27 Dose: 400 mg Guaifenesin (Robitussin) 100 mg PO Q4H PRN PRN Reason: Cough Last Admin: 08/13/17 02:15 Dose: 100 mg Sodium Chloride (Sodium Chloride 0.9%) 1,000 mls @ 100 mls/hr IV .Q10H [facility] Last Admin: 08/14/17 06:13 Dose: 100 mls/hr Levofloxacin (Levaquin) 250 mg PO Q48H [facility] Last Admin: 08/14/17 10:28 Dose: 250 mg Methylprednisolone (Solu-Medrol) 20 mg IVP Q12 [facility] Last Admin: 08/14/17 10:30 Dose: 20 mg Metoclopramide HCl (Reglan) 5 mg IVP ACHS [facility] Last Admin: 08/14/17 10:30 Dose: 5 mg Metoprolol Tartrate (Lopressor) 25 mg PO BRKDIN [facility] Last Admin: 08/14/17 10:29 Dose: 25 mg Nystatin (Nystatin Oral Susp) 5 ml PO QID [facility] Last Admin: 08/14/17 10:26 Dose: 5 ml Ondansetron HCl (Zofran Inj) 4 mg IVP Q6H PRN PRN Reason: Nausea/Vomiting Oxycodone HCl (Oxycodone Immediate Release Tab) 30 mg PO TID PRN PRN Reason: Pain, moderate (4-7) Last Admin: 08/14/17 10:28 Dose: 30 mg Pantoprazole Sodium (Protonix Ec Tab) 40 mg PO BID [facility] Last Admin: 08/14/17 10:27 Dose: 40 mg Zolpidem Tartrate (Ambien) 5 mg PO HS [facility] PRN Reason: Protocol Last Admin: 08/13/17 21:25 Dose: 5 mg - Labs Labs: 08/12/17 06:00 08/13/17 09:00 PT 16.3 SECONDS (9.4-12.5) H 08/11/17 15:15 INR 1.42 (0.93-1.08) H 08/11/17 15:15 APTT 35.6 Seconds (25.1-36.5) 08/11/17 15:15 Attending/Attestation - Attestation I have personally seen and examined this patient.: Yes I have fully participated in the care of the patient.: Yes I have reviewed all pertinent clinical information, including history, physical exam and plan: Yes Notes (Text): I have seen and examined the patient at bedside. 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 Patient appears to be in no distress. Stridor has resolved. ENT eval appreciated. Patient is on steroids and antibiotics. Flu negative. Sputum culture is pending. V/Q scan show low probability scan. CT chest revealed no consolidation however esophageal dilatation was noted. Discussed with radiologist. Patient had similar findings in the past. GI consult appreciated. EGD is scheduled for today. Patient is making urine. Continue IVF. Creatinine is improving. Continue eliquis for atrial fibrillation. Upon discharge patient will follow up with Dr Cohen. Dr Kathe Garcia
[2017-08-13 23:00] VITALS: O2SAT 100
[2017-08-14] MEDS: oxyCODONE 30 mg Immediate Release Tab PO PRN ×2 (02:01→10:28)
[2017-08-14] MEDS: Sodium Chloride 0.9% 1,000 ML IV SCH ×2 (02:52→06:13)
[2017-08-14 07:58] VITALS: BP 116/68; PULSE 78; RESP 20; TEMP 98.6
--- NOTE | 2017-08-14 10:23 | PN ---
DATE: 08/14/2017 SUBJECTIVE: The patient is lying in bed comfortable. She denies any dysphagia, nausea, vomiting, abdominal pain. PHYSICAL EXAMINATION: VITAL SIGNS: Reveal temperature of 98.6, blood pressure 116/68, heart rate of 78. HEENT: Reveals sclerae to be white. Conjunctivae pink. NECK: Supple. CHEST: Reveal distant breath sounds. HEART: Exam reveals a regular rate and rhythm. ABDOMEN: Soft, nontender. No mass. EXTREMITIES: Show no edema. LABORATORY DATA: Reveal BUN 38, creatinine 1.2, chloride 109, bicarb 20, blood sugar of 114. IMPRESSION: 1. Acute asthmatic bronchitis. 2. Acute on chronic renal failure. 3. Jennifer esophagitis. 4. Gastroparesis, status post gastric bypass. 5. History of atrial fibrillation with cerebrovascular accident. RECOMMENDATIONS: 1. Continue low-fat, low-residue diet. 2. Continue nystatin suspension 4 times a day for Jeninfer esophagitis. 3. Continue IV Reglan and PPI. Orestes Mendoza MD
[2017-08-14] MEDS: Nystatin 100,000 Units/ml Oral Susp 5 ml UD PO SCH (10:26)
[2017-08-14] MEDS: Pantoprazole 40 mg EC Tab PO SCH (10:27)
[2017-08-14] MEDS: MethylPREDNISolone 40 mg Vial IVP SCH (10:30)
--- NOTE | 2017-08-14 11:24 | CP.PCM.PN ---
Subjective - Date & Time of Evaluation Date of Evaluation: 08/14/17 Time of Evaluation: 11:23 - Subjective Subjective: Nephrology Consultation Note: Assessment: Stable Acute Kidney Injury (N17.9) likely hemodynamic with low blood pressure: improving Hyperkalemia and acidosis (combined respi and metabolic) History of protein C deficiency and DVT and IVC filter history of rhabdomyolysis in the past, resolved off statins HTN Plan No acute need for renal replacement therapy at this time. resume lopressor as BP better and to avoid BB withdrawal d/c IVF no ACEI/ARB in future for her as pt with recurrent AKIs. may consider ambulatory BP as outpt to assess white coat HTN. results pending on renal artery doppler to r/o b/l cheri lupus serology neg last year with normal complements. anca/hep b & c and hiv had been neg Anemia work up as ordered pt on weekly vit D supplements pt stable for d/c from renal perspective Dose meds/antibiotics for improved GFR. Avoid nephrotoxins/NSAIDs Glycemic control Further work up/management as per primary team Thanks for allowing me to participate in care of your patient. Please call if any Qs. d/w team Dr Junior Szymanski Office: [phone] Chief Complaint; Cough and SOB Reason for consult is JOSEFINA HPI: Pt is a 62-year-old female history of hypertension for many years protein C deficiency with Recurrent DVTs status post IVC filter also history of recurrent JOSEFINA in the past with rhabdomyolysis which has improved since she is off statins recently admitted for JOSEFINA due to low BP (improved with IVF) presented with complaints of Cough and SOB. She feels better at this time shortness of breath is better cough is better Denies OTC/herbal meds or NSAIDs No recent iodinated contrast exposure. Bp mostly okay and on low side ROS: Cardiovascular: No chest pain. Pulmonary: No shortness of breath . improved cough Gastrointestinal: denies abdominal pain No nausea. No vomiting. Genitourinary: No pain while urinating. Denies blood in urine. All other negative except as mentioned in HPI Physical Examination: General Appearance: Comfortable, in no acute respiratory distress, co-operative . She is obese Vitals reviewed and noted as below Head; Atraumatic, normocephalic ENT: no ulcers no thrush. Tongue is midline. Oropharynx: no rash or ulcers. EYES: Pupils are equal, round and reactive to light accommodation. Eye muscles and extraocular movement intact. Sclera is anicteric. Neck; supple no lymphadenopathy, no thyromegaly or bruit Lungs: Normal respiratory rate/effort. Breath sounds bilateral equal and clear Heart: Normal rate. s1s2 normal. No rub or gallop. Extremities: no edema. No varicose veins Neurological: Patient is alert, awake and oriented to person, place and time. No focal deficit. Strength bilateral appropriate and equal Skin: Warm and dry. Normal turgor. No rash. Palpitation: Normal elasticity for age Abdomen: Abdomen is soft. Bowel sounds +. There is no abdominal tenderness, no guarding/rigidity no organomegaly Psych: normal insight and normal affect/mood MSK: no joint tenderness or swelling. Digits and nails normal, no deformity : kidney or bladder not palpable Labs/imaging reviewed. Past medical history, past surgical history, family history, social history, allergy reviewed and noted as below Family hx: no hx of CKD. Rest non-contributory TSAT 35% Ferritin 433 Objective - Vital Signs/Intake and Output Vital Signs (last 24 hours): Temp Pulse Resp BP Pulse Ox 98.6 F 78 20 116/68 100 08/14/17 07:57 08/14/17 10:29 08/14/17 07:57 08/14/17 10:29 08/14/17 07:57 Intake and Output: 08/14/17 08/14/17 06:59 18:59 Intake Total 1020 Balance 1020 - Medications Medications: Current Medications Albuterol Sulfate (Albuterol 0.083% Inhal Angella (2.5 Mg/3 Ml) Ud) 2.5 mg INH [id number] PRN PRN Reason: Shortness of Breath Last Admin: 08/13/17 02:42 Dose: 2.5 mg Apixaban (Eliquis) 5 mg PO BID [facility] PRN Reason: Protocol Last Admin: 08/13/17 17:09 Dose: 5 mg Ergocalciferol (Drisdol 50,000 Intl Units Cap) 50,000 cap PO QWK [facility] Fluconazole (Diflucan) 100 mg PO DAILY [facility] PRN Reason: Protocol Last Admin: 08/14/17 10:27 Dose: 100 mg Gabapentin (Neurontin) 400 mg PO TID [facility] PRN Reason: Protocol Last Admin: 08/14/17 10:27 Dose: 400 mg Guaifenesin (Robitussin) 100 mg PO Q4H PRN PRN Reason: Cough Last Admin: 08/13/17 02:15 Dose: 100 mg Sodium Chloride (Sodium Chloride 0.9%) 1,000 mls @ 100 mls/hr IV .Q10H [facility] Last Admin: 08/14/17 06:13 Dose: 100 mls/hr Levofloxacin (Levaquin) 250 mg PO Q48H [facility] Last Admin: 08/14/17 10:28 Dose: 250 mg Methylprednisolone (Solu-Medrol) 20 mg IVP Q12 [facility] Last Admin: 08/14/17 10:30 Dose: 20 mg Metoclopramide HCl (Reglan) 5 mg IVP ACHS [facility] Last Admin: 08/14/17 10:30 Dose: 5 mg Metoprolol Tartrate (Lopressor) 25 mg PO BRKDIN [facility] Last Admin: 08/14/17 10:29 Dose: 25 mg Nystatin (Nystatin Oral Susp) 5 ml PO QID [facility] Last Admin: 08/14/17 10:26 Dose: 5 ml Ondansetron HCl (Zofran Inj) 4 mg IVP Q6H PRN PRN Reason: Nausea/Vomiting Oxycodone HCl (Oxycodone Immediate Release Tab) 30 mg PO TID PRN PRN Reason: Pain, moderate (4-7) Last Admin: 08/14/17 10:28 Dose: 30 mg Pantoprazole Sodium (Protonix Ec Tab) 40 mg PO BID [facility] Last Admin: 08/14/17 10:27 Dose: 40 mg Zolpidem Tartrate (Ambien) 5 mg PO HS [facility] PRN Reason: Protocol Last Admin: 08/13/17 21:25 Dose: 5 mg - Labs Labs: 08/12/17 06:00 08/13/17 09:00 PT 16.3 SECONDS (9.4-12.5) H 08/11/17 15:15 INR 1.42 (0.93-1.08) H 08/11/17 15:15 APTT 35.6 Seconds (25.1-36.5) 08/11/17 15:15
[2017-08-14] MEDS: Albuterol 0.083% Inhal Sol (2.5 mg/3 mL) UD INH PRN (11:37)
--- NOTE | 2017-08-14 13:09 | CP.PCM.DIS ---
Provider - Provider Date of Admission: 08/11/17 18:15 Attending physician: Kathe Garcia MD Primary care physician: Orestes Ho MD Consults: Nephro: Stephon GI: Kelly GI: Dr. Mendoza Time Spent in preparation of Discharge (in minutes): 45 Hospital Course - Lab Results Lab Results: Micro Results 08/13/17 15:40 Sputum Gram Stain - Final Most Recent Lab Values WBC 10.2 10^3/ul (4.5-11.0) 08/12/17 06:00 RBC 3.66 10^6/uL (3.5-6.1) 08/12/17 06:00 Hgb 11.2 g/dL (12.0-16.0) L 08/12/17 06:00 Hct 34.6 % (36.0-48.0) L 08/12/17 06:00 MCV 94.5 fl (80.0-105.0) 08/12/17 06:00 MCH 30.6 pg (25.0-35.0) 08/12/17 06:00 MCHC 32.4 g/dl (31.0-37.0) 08/12/17 06:00 RDW 13.5 % (11.5-14.5) 08/12/17 06:00 Plt Count 222 10^3/uL (120.0-450.0) 08/12/17 06:00 MPV 9.4 fl (7.0-11.0) 08/12/17 06:00 Gran % 88.1 % (50.0-68.0) H 08/12/17 06:00 Lymph % (Auto) 10.9 % (22.0-35.0) L 08/12/17 06:00 Bertie % (Auto) 1.0 % (1.0-6.0) 08/12/17 06:00 Eos % (Auto) 0.0 % (1.5-5.0) L 08/12/17 06:00 Baso % (Auto) 0.0 % (0.0-3.0) 08/12/17 06:00 Gran # 9.01 (1.4-6.5) H 08/12/17 06:00 Lymph # (Auto) 1.1 (1.2-3.4) L 08/12/17 06:00 Bertie # (Auto) 0.1 (0.1-0.6) 08/12/17 06:00 Eos # (Auto) 0.0 (0.0-0.7) 08/12/17 06:00 Baso # (Auto) 0.00 K/mm3 (0.0-2.0) 08/12/17 06:00 ESR 52 mm/hr (0.0-20.0) H 08/12/17 16:45 PT 16.3 SECONDS (9.4-12.5) H 08/11/17 15:15 INR 1.42 (0.93-1.08) H 08/11/17 15:15 APTT 35.6 Seconds (25.1-36.5) 08/11/17 15:15 pCO2 40 mm/Hg (35-45) 08/11/17 14:35 pO2 43 mm/Hg (30-55) 08/11/17 16:38 HCO3 18.8 mmol/L (21-28) L 08/11/17 14:35 ABG pH 7.28 (7.35-7.45) L 08/11/17 14:35 ABG Total CO2 20.0 mmol.L (22-28) L 08/11/17 14:35 ABG O2 Saturation 98.5 % (95-98) H 08/11/17 14:35 ABG Base Excess -7.5 mmol/L (-2.0-3.0) L 08/11/17 14:35 ABG Potassium 4.4 mmol/L (3.6-5.2) 08/11/17 14:35 VBG pH 7.17 (7.32-7.43) L* 08/11/17 16:38 VBG pCO2 60.0 (40-60) 08/11/17 16:38 VBG HCO3 21.9 mmol/l (21-28) 08/11/17 16:38 VBG Total CO2 23.7 mmol.L (22-28) 08/11/17 16:38 VBG O2 Sat (Calc) 78.6 % (40-65) H 08/11/17 16:38 VBG Base Excess -7.4 mmol/L (0.0-2.0) L 08/11/17 16:38 VBG Potassium 4.6 mmol/L (3.6-5.2) 08/11/17 16:38 Sodium 132.0 mmol/L (132-148) 08/11/17 16:38 Chloride 101.0 mmol/L (98-107) 08/11/17 16:38 Glucose 85 mg/dl (65-105) 08/11/17 16:38 Lactate 1.2 mmol/L (0.7-2.1) 08/11/17 16:38 FiO2 21.0 % 08/11/17 16:38 Sodium 141 mmol/L (132-148) 08/13/17 09:00 Potassium 5.0 mmol/L (3.6-5.0) 08/13/17 09:00 Chloride 109 mmol/L (98-107) H 08/13/17 09:00 Carbon Dioxide 20 mmol/L (21-33) L 08/13/17 09:00 Anion Gap 17 (10-20) 08/13/17 09:00 BUN 38 mg/dL (7-21) H 08/13/17 09:00 Creatinine 1.2 mg/dl (0.7-1.2) 08/13/17 09:00 Est GFR ( Amer) 55 08/13/17 09:00 Est GFR (Non-Af Amer) 45 08/13/17 09:00 POC Glucose (mg/dL) 217 mg/dL (65-110) H 08/12/17 17:35 Random Glucose 114 mg/dL (70-110) H 08/13/17 09:00 Serum Osmolality 294 mosm/kg (272-300) 08/11/17 15:15 Calcium 9.7 mg/dL (8.4-10.5) 08/13/17 09:00 Phosphorus 7.7 mg/dL (2.5-4.5) H 08/12/17 06:00 Magnesium 2.3 mg/dL (1.7-2.2) H 08/12/17 06:00 Iron 77 ug/dL (45-180) 08/12/17 16:45 TIBC 217 ug/dL (265-497) L 08/12/17 16:45 % Saturation 35 % (20-55) 08/12/17 16:45 Ferritin 433.0 ng/mL 08/12/17 16:45 Total Bilirubin 0.7 mg/dL (0.2-1.3) 08/12/17 16:45 AST 31 U/L (14-36) 08/12/17 16:45 ALT 32 U/L (7-56) 08/12/17 16:45 Alkaline Phosphatase 75 U/L (38-126) 08/12/17 16:45 Lactate Dehydrogenase 454 U/L (333-699) 08/11/17 15:15 Total Creatine Kinase 75 U/L (35-230) 08/11/17 15:15 Troponin I < 0.01 ng/mL 08/11/17 15:15 NT-Pro-B Natriuret Pep 159 pg/mL (0-450) 08/11/17 15:15 Total Protein 7.4 g/dL (5.8-8.3) 08/12/17 16:45 Total Protein (PEP) 6.8 g/dL (6.1-8.1) 08/12/17 16:45 Albumin 4.0 g/dL (3.0-4.8) 08/12/17 16:45 Globulin 3.5 gm/dL 08/12/17 16:45 Albumin/Globulin Ratio 1.1 (1.1-1.8) 08/12/17 16:45 Triglycerides 99 mg/dL (35-160) 08/11/17 15:15 Cholesterol 176 mg/dL (130-200) 08/11/17 15:15 LDL Cholesterol Direct 70 mg/dL (0-129) 08/11/17 15:15 HDL Cholesterol 68 mg/dL (29-60) H 08/11/17 15:15 Procalcitonin 0.16 NG/ML (0.19-0.49) L 08/11/17 15:15 Arterial Blood Potassium 4.4 mmol/L (3.6-5.2) 08/11/17 14:35 Venous Blood Potassium 4.6 mmol/L (3.6-5.2) 08/11/17 16:38 Urine Color Yellow (YELLOW) 08/11/17 17:45 Urine Appearance Clear (CLEAR) 08/11/17 17:45 Urine pH 6.0 (4.7-8.0) 08/11/17 17:45 Ur Specific Sutton 1.020 (1.005-1.035) 08/11/17 17:45 Urine Protein Negative mg/dL (<30 mg/dL) 08/11/17 17:45 Urine Glucose (UA) Negative mg/dL (NEGATIVE) 08/11/17 17:45 Urine Ketones Trace mg/dL (NEGATIVE) H 08/11/17 17:45 Urine Blood Negative (NEGATIVE) 08/11/17 17:45 Urine Nitrate Negative (NEGATIVE) 08/11/17 17:45 Urine Bilirubin Negative (NEGATIVE) 08/11/17 17:45 Urine Urobilinogen 0.2 E.U./dL (<1 E.U./dL) 08/11/17 17:45 Ur Leukocyte Esterase Trace Zheng/uL (NEGATIVE) H 08/11/17 17:45 Urine RBC 0 - 2 /hpf (0-2) 08/11/17 17:45 Urine WBC 2 - 5 /hpf (0-6) 08/11/17 17:45 Ur Epithelial Cells 4 - 5 /hpf (0-5) 08/11/17 17:45 Amorphous Sediment Small 08/11/17 17:45 Urine Bacteria Many (NEG) 08/11/17 17:45 Urine Other Uyeast 08/11/17 17:45 Urine Osmolality 174 mosm/kg (300-1000) L 08/13/17 01:40 Ur Random Creatinine 24 mg/dL 08/13/17 01:40 Ur Random Sodium 18 meq/L 08/13/17 01:40 Ur Random Potassium 13.7 meq/L 08/13/17 01:40 Urine Microalbumin < 6.0 mg/L (0.0-16.6) 08/13/17 01:40 Serum Immunofixation Not detected (Not Detected) 08/12/17 16:45 HIV 1&2 Antibody Screen Negative (NEGATIVE) 08/13/17 Unknown Influenza Typ A,B (EIA) Negative for flu a/b (NEGATIVE) 08/11/17 15:10 - Hospital Course Hospital Course: paroxysmal SOB 2-3 days and productive cough (yellow sputum streaked with blood) . She was also found to have acutely elevated creatinine concerning for possible acute renal failure. Of note, [place] [facility] [facility] [place] for [place]B and urinary retention). Patient denies gregorio hemoptysis but reports intermittent SOB which she most notices when she is trying to talk and at rest. During interview, she displayed several of these episodes, where she would suddenly become SOB, gasp, breath sounds like stridor, and would speak in a higher pitch of voice/have dyspnic speach for up to 2 minutes at a time. She reports that these episodes are variable in length, (few min to few seconds). Denies syncopal/near-syncopal episodes during these events, but reports palpitations intermittently during, and gets very anxious regarding them Patient was found to have an JOSEFINA 2/2 dehydration. Her creatinine rapidly improved with fluids Patient was taken out of the ICU and was stable. The following day, Dr. Mendoza deemed stable for discharge and her bronchospasms resolved. Dr. Szymanski stated that she should get full dose antibiotics for discharge. CXR: neg CT Neck: dilated esophagus without clear lesion V/Q: neg EGD: diffuse candidiasis CXR (08/12): neg Discharge Exam - Head Exam Head Exam: ATRAUMATIC, NORMAL INSPECTION, NORMOCEPHALIC - Eye Exam Eye Exam: EOMI, Normal appearance, PERRL Pupil Exam: NORMAL ACCOMODATION, PERRL - Respiratory Exam Respiratory Exam: Clear to PA & Lateral, NORMAL BREATHING PATTERN, UNREMARKABLE - Cardiovascular Exam Cardiovascular Exam: REGULAR RHYTHM - GI/Abdominal Exam GI & Abdominal Exam: Normal Bowel Sounds - Neurological Exam Neurological exam: Alert, CN II-XII Intact, Normal Gait, Oriented x3, Reflexes Normal - Psychiatric Exam Psychiatric exam: Normal Affect, Normal Mood - Skin Skin Exam: Dry, Intact, Normal Color, Warm Discharge Plan - Discharge Medications Prescriptions: Fluconazole [Diflucan] 100 mg PO DAILY #14 tab Metoclopramide HCl [Reglan] 5 mg PO DAILY #30 tablet - Follow Up Plan Condition: SERIOUS Disposition: HOME/ ROUTINE Instructions: Thrush, Low Cholesterol, Saturated Fat, and Trans Fat Diet , Low Fiber Diet, Avoiding Asthma Triggers, Eosinophilic Esophagitis, Gastroparesis ( Delayed Gastric Emptying) (DC), Exercise-Induced Asthma Referrals: Orestes Ho MD [Primary Care Provider] - Junior Szymanski MD [Staff Provider] - Orestes Mendoza MD [Staff Provider] -
--- NOTE | 2017-08-14 18:39 | US ---
PROCEDURE: Bilateral renal artery duplex ultrasound. CLINICAL HISTORY: Renal artery stenosis. Uncontrolled hypertension. Evaluate for renovascular hypertension. PHYSICIAN(S): Stewart Aden M.D. TECHNIQUE: Duplex sonography with color-flow Doppler was used to evaluate the visualized segments of the main renal arteries. The patient was evaluated in a fasting state. Imaging in a supine and decubitus position was performed. Limited evaluation of the arcuate waveforms and resistive indices were performed. FINDINGS: The overall quality of the study is adequate. The kidneys are normal in size, shape, and location. The right kidney measures 10.1cm in length and the left kidney measures 11.1cm in length. No solid renal masses, abnormal calcifications, or hydronephrosis is seen. The main right renal artery is fairly well visualized from the aorta to the hilum. The peak systolic velocity in the right main renal artery is 75 cm/sec. This is consistent with a 0 to 49% stenosis in the main right renal artery. The arcuate waveforms are normal. The resistive index is normal. The main left renal artery is tortuous. The peak systolic velocity in the main left renal artery is 86cm/sec. This corresponds to a 0 to 49% stenosis in the main left renal artery. The arcuate waveforms and resistive indices are normal. IMPRESSION: 1. The main renal arteries are fairly well visualized. 2. No sonographically significant stenosis is identified. 3. The kidneys are normal and symmetric in size. There are no solid renal masses, abnormal calcifications or hydronephrosis noted.
[2017-08-14 21:59] LABS: ALBUMIN (PEP) 3.6 g/dL (3.8-4.8); ALPHA-1-GLOBULIN (PEP) 0.4 g/dL (0.2-0.3)
[2017-08-18] MEDS ORDERED: Ergocalciferol 50,000 Intl Units Cap PO SCH (10:00)
[2017-08-18] MEDS ORDERED: Cholecalciferol 1,000 INTLU TAB PO SCH (10:00)
== END 2017-08-14 15:54 | disposition home or self-care (01) | DRG 683 ==
LOC: ED 14:06 → ERH 18:15 → ICU 08-12 05:50 → 5RSO 08-13 17:21 → 5RNO 08-14 00:42
PROVIDERS: ADMIT Internal Medicine; ATTEND Hospitalist
PROC: 05H633Z Insertion of Infusion Device into Left Subclavian Vein, Percutaneous Approach (ICD-10-PCS; 2017-08-12)
PROC: B547ZZA Ultrasonography of Left Subclavian Vein, Guidance (ICD-10-PCS; 2017-08-12)
PROC: 0DD58ZX Extraction of Esophagus, Via Natural or Artificial Opening Endoscopic, Diagnostic (ICD-10-PCS; principal; 2017-08-13 09:45)
DX: N17.9 Acute kidney failure, unspecified (principal); D68.59 Other primary thrombophilia; E87.2 Acidosis; B37.81 Candidal esophagitis; E87.5 Hyperkalemia; I48.91 Unspecified atrial fibrillation; E86.0 Dehydration; N39.0 Urinary tract infection, site not specified; J20.9 Acute bronchitis, unspecified; J45.909 Unspecified asthma, uncomplicated; K44.9 Diaphragmatic hernia without obstruction or gangrene; K31.84 Gastroparesis; N18.9 Chronic kidney disease, unspecified; I12.9 Hypertensive chronic kidney disease with stage 1 through stage 4 chronic kidney disease, or unspecified chronic kidney disease; E78.5 Hyperlipidemia, unspecified; Z86.73 Personal history of transient ischemic attack (TIA), and cerebral infarction without residual deficits; Z90.13 Acquired absence of bilateral breasts and nipples; Z86.718 Personal history of other venous thrombosis and embolism; Z79.01 Long term (current) use of anticoagulants; Z98.84 Bariatric surgery status

== ENCOUNTER 2017-08-25 15:00 | Inpatient (IN) | payer MEDICARE, OTHER ==
[2017-08-25 15:17] VITALS: BMI 29.2
[2017-08-25] MEDS ORDERED: Albuterol-Ipratrop 3 mg / 0.5 (3 ml) UD IH STA (15:29)
[2017-08-25] MEDS ORDERED: Lactated Ringer's 1,000 ML IV SCH (15:45)
--- NOTE | 2017-08-25 15:47 | ED PDOC ---
Arrival/HPI - General Chief Complaint: Shortness Of Breath Time Seen by Provider: 08/25/17 15:07 Historian: Patient EM Caveat: Acuity of Condition - History of Present Illness Narrative History of Present Illness (Text): 08/25/17 15:37 Pt is a 62 year old female with a past medical history of JOSEFINA, and pneumonia who presents to the ED today for shortness of breath that began last night along with a headache. Pt was recently admitted and treated for SOB and acute renal failure (08/11/17) and was given IV abx and discharged home with PO abx that she just finished this morning. Describes a productive cough that leaves her short of breath along with chills, fever, MURILLO, urine cessation x 1 day and poor appetite.. She uses an albuterol inhaler that gives some relief; took her BP meds this am and ABX but did not take her other meds. Also c/o a coated tongue and throat with some difficulty swallowing as a result. Denies nausea and vomiting (except when taking ABX), chest pain, diarrhea, back pain, or any other complaints. PMD is Dr. Ho and Dr. Moe. Did not take Apixaban today 08/25/17 15:52 Time/Duration: 24 hours Symptom Onset: Gradual Symptom Course: Unchanged Quality: Aching, Pressure Activities at Onset: Rest Context: Home Past Medical History - Provider Review Nursing Documentation Reviewed: Yes - Travel History Have you recently traveled outside [place] w/in the past 3 mons?: No - Infectious Disease Hx of Infectious Diseases: None - Tetanus Immunization Tetanus Immunization: Unknown - Cardiac Hx Cardiac Disorders: Yes Hx Hypertension: Yes - Pulmonary Hx Respiratory Disorders: Yes Hx Asthma: Yes Hx Bronchitis: No Hx Chronic Obstructive Pulmonary Disease (COPD): No Hx Emphysema: No Hx Pneumonia: Yes Hx Respiratory Aspiration: No Hx Respiratory Tract Infection: No Hx Sleep Apnea: No Hx Tuberculosis: No - Neurological HX Cerebrovascular Accident: Yes - HEENT Hx HEENT Disorder: Yes Hx Blind: Yes Hx Cataracts: No Hx Deafness: No Hx Difficulty Chewing: No Hx Epistaxis: No Hx Glaucoma: No Hx Macular Degeneration: No Other/Comment: Tonsillectomy - Renal Hx Renal Failure: Yes - Endocrine/Metabolic Hx Endocrine Disorders: No Hx Adrenal Cancer: No Hx Diabetes Insipidus: No Hx Diabetes Mellitus Type 1: No Hx Diabetes Mellitus Type 2: No Hx Hyperthyroidism: No Hx Hypothyroidism: No Hx Systemic Lupus Erythematosus: No - Hematological/Oncological Hx Blood Transfusions: Yes Hx Blood Transfusion Reaction: No - Integumentary Hx Dermatological Disorder: No Hx Basal Cell Carcinoma: No Hx Eczema: No Hx Melanoma: No Hx Psoriasis: No Hx Squamous Cell Carcinoma: No - Musculoskeletal/Rheumatological Hx Arthritis: Yes - Gastrointestinal Hx Gastrointestinal Disorders: Yes Hx Colostomy: No Hx Crohn's Disease: No Hx Diverticulitis: No Hx Gall Bladder Disease: Yes Hx Gastroesophageal Reflux: Yes Hx Ileostomy: No Hx Liver Failure: No Hx Pancreatitis: No HX Swallowing Problems: No Other/Comment: Gastric Bypass Surgery. Appetite Changes. Weight Loss. - Genitourinary/Gynecological Hx Genitourinary Disorders: No Hx Hematuria: No Hx Incontinence: No Hx Sexually Transmitted Diseases: No Hx Urinary Tract Infection: Yes - Psychiatric Hx Psychophysiologic Disorder: No Hx Anxiety: No Hx Bipolar Disorder: No Hx Depression: No Hx Emotional Abuse: No Hx Hallucinations: No Hx Panic Disorder: No Hx Post Traumatic Stress Disorder: No Hx Psychosis: No Hx Physical Abuse: No Hx Schizophrenia: No Hx Sexual Abuse: No Hx Substance Use: No - Past Surgical History Past Surgical History: Non-Contributing - Surgical History Hx Mastectomy: No - Anesthesia Hx Anesthesia Reactions: No Hx Malignant Hyperthermia: No - Suicidal Assessment Feels Threatened In Home Enviroment: No Family/Social History - Physician Review Nursing Documentation Reviewed: Yes Family/Social History: Unknown Family HX Smoking Status: Never Smoked Hx Alcohol Use: No Hx Substance Use: No Hx Substance Use Treatment: No Allergies/Home Meds Allergies/Adverse Reactions: Allergies Penicillins Allergy (Verified 08/11/17 14:14) ANGIOEDEMA/SHORTNESS OF BREATH ANGIOEDEMA SHORTNESS OF BREATH Home Medications: Home Meds Medication Instructions Recorded Confirmed Apixaban [Eliquis] 5 mg PO BID 03/26/17 08/25/17 Gabapentin [Neurontin] 400 mg PO TID 03/26/17 08/25/17 Pantoprazole Sodium [Protonix] 40 mg PO BID 03/26/17 08/25/17 Zolpidem [Ambien] 10 mg PO HS 03/26/17 08/25/17 oxyCODONE [oxyCODONE Immediate 30 mg PO TID 03/26/17 08/25/17 Release Tab] Cholecalciferol [Vitamin D 1000 IU] 50,000 unit PO QWK 01/12/18 03/27/18 Valsartan [Diovan] 80 mg PO DAILY 08/03/17 08/25/17 Review of Systems - Physician Review All systems were reviewed & negative as marked: Yes - Review of Systems Systems not reviewed;Unavailable: Acuity of Condition Constitutional: Fatigue, Fevers Eyes: Normal ENT: Normal Respiratory: SOB, Cough, Sputum, Wheezing Cardiovascular: Normal Gastrointestinal: Normal Genitourinary Female: Normal Musculoskeletal: Normal Skin: Normal Neurological: Normal, Headache Endocrine: Normal Hemo/Lymphatic: Normal Psychiatric: Normal Physical Exam Vital Signs Reviewed: Yes Vital Signs Temp Pulse Resp BP Pulse Ox 08/26/17 00:42 99 H 19 112/52 L 97 08/26/17 00:17 101 F H 08/25/17 23:18 106 H 18 103/60 98 08/25/17 22:44 101.5 F H 08/25/17 17:45 98 F 107 H 18 101/76 100 08/25/17 17:26 100 08/25/17 15:01 98.1 F 77 18 177/83 H 100 Temperature: Afebrile Blood Pressure: Hypertensive Pulse: Regular Respiratory Rate: Normal Appearance: Positive for: Well-Appearing, Non-Toxic, Comfortable Pain Distress: Mild Mental Status: Positive for: Alert and Oriented X 3 - Systems Exam Head: Present: Atraumatic, Normocephalic Pupils: Present: PERRL Extroacular Muscles: Present: EOMI Conjunctiva: Present: Normal Mouth: Present: Dry, Other (white-coated tongue and pharynx) Pharnyx: Present: Other (white-coated tongue and pharynx) Neck: Present: Normal Range of Motion Respiratory/Chest: Present: Clear to Auscultation, Rales. No: Respiratory Distress, Accessory Muscle Use Cardiovascular: Present: Regular Rate and Rhythm, Normal S1, S2. No: Murmurs Abdomen: Present: Normal Bowel Sounds. No: Tenderness, Distention, Peritoneal Signs Back: Present: Normal Inspection Upper Extremity: Present: Normal Inspection. No: Cyanosis, Edema Lower Extremity: Present: Normal Inspection, NORMAL PULSES, Normal ROM, Swelling (1+ pitting edema bilat). No: Edema Neurological: Present: GCS=15, CN II-XII Intact, Speech Normal, Motor Func Grossly Intact, Normal Sensory Function Skin: Present: Warm, Dry, Normal Color. No: Rashes, Diaphoretic, Erythematous, Induration, Hot, Cold, Pale, Laceration, Abscess, Abrasion, Other Psychiatric: Present: Alert, Oriented x 3, Normal Insight, Normal Concentration Medical Decision Making ED Course and Treatment: 08/25/17 15:47 Impression Pt is a 62 year old female with a past medical history of JOSEFINA, and pneumonia who presents to the ED today for shortness of breath that began last night along with a headache. Failed outpatient Tx for PNA; purulent sputum (yellow/green, streaked w blood) Plan SOB w/u Labs and imaging Fluids duoneb and o2 NPO Progress Note Multiple attempts made to get a blood draw and give fluids; Dr. Camacho placed line in left IJ for fluids LR 1L given with 500cc/hr EKG Sinus tach rate 112 CXR unchanged form previous; no cardiopulmonary disease appreciated Blood draw attempted again; phlebotomy contacted, right femoral vein tapped successfully by Dr. Camacho Contacted Sr Resident; Spoke with Dr. Britton for admission to [facility] Dr. Britton evaluated pt.; admission to [facility] given Sepsis parameters met Cef and Zithromax IV ordered and awaiting bed; Dr. Camacho reviewed and advised accordingly - Lab Interpretations Lab Results: 08/25/17 21:05 08/25/17 21:05 Lab Results 08/25/17 22:11: Urine Color Yellow, Urine Appearance Sl cloudy, Urine pH 6.0, Ur Specific [place] 1.020, Urine Protein Trace H, Urine Glucose (UA) Negative, Urine Ketones Negative, Urine Blood Trace-intact H, Urine Nitrate Negative, Urine Bilirubin Negative, Urine Urobilinogen 0.2, Ur Leukocyte Esterase Negative , Urine RBC 5 - 10, Urine WBC Negative, Ur Epithelial Cells 1 - 3 08/25/17 21:30: Blood Type A POSITIVE, Antibody Screen Negative, BBK History Checked Patient has bt 08/25/17 21:30: Urine Opiates Screen Positive H, Urine Methadone Screen Negative , Ur Barbiturates Screen Negative, Ur Phencyclidine Scrn Negative, Ur Amphetamines Screen Negative, U Benzodiazepines Scrn Negative, U Oth Cocaine Metabols Negative, U Cannabinoids Screen Negative 08/25/17 21:05: Acetaminophen < 10.0 L 08/25/17 21:05: Sodium 136, Chloride 106, Potassium 4.2, Carbon Dioxide 18 L, Anion Gap 17, BUN 19, Creatinine 1.5 H, Est GFR ( Amer) 42, Est GFR (Non- Af Amer) 35, Random Glucose 93, Calcium 9.0, Total Bilirubin 0.9, AST 525 H D, ALT 356 H, Alkaline Phosphatase 131 H D, Lactate Dehydrogenase 1619 H, Total Creatine Kinase 139, Troponin I < 0.01, NT-Pro-B Natriuret Pep 149, Total Protein 7.1, Albumin 3.9, Globulin 3.2, Albumin/Globulin Ratio 1.2 08/25/17 21:05: pO2 70 H, VBG pH 7.25 L, VBG pCO2 42.0, VBG HCO3 18.4 L, VBG Total CO2 19.7 L, VBG O2 Sat (Calc) 94.9 H, VBG Base Excess -8.5 L, VBG Potassium 3.9, Sodium 136.0, Chloride 107.0, Glucose 97, Lactate 2.0, FiO2 21.0 , Venous Blood Potassium 3.9 08/25/17 21:05: PT 12.6 H, INR 1.10 H, APTT 36.0 08/25/17 21:05: WBC 18.0 H D, RBC 3.50, Hgb 10.6 L, Hct 32.7 L, MCV 93.4, MCH 30.3, MCHC 32.4, RDW 14.7 H, Plt Count 203, MPV 8.9, Gran % 85.5 H, Lymph % ( Auto) 7.7 L, [place] % (Auto) 6.6 H, Eos % (Auto) 0.1 L, Baso % (Auto) 0.1, Gran # 15.37 H, Lymph # (Auto) 1.4, [place] # (Auto) 1.2 H, Eos # (Auto) 0.0, Baso # (Auto ) 0.01 I have reviewed the lab results: Yes (Elevated LFTs and WBCs) - RAD Interpretation Narrative RAD Interpretations (Text): 08/25/17 20:28 No active cardio or pulmonary disease Radiology Orders: 08/25/17 15:29 CHEST TWO VIEWS (PA/LAT) [RAD] Stat Tobacco Curer: Radiologist - EKG Interpretation Interpreted by ED Physician: Yes (Sinus Tach w Rate of 112) - Medication Orders Current Medication Orders: Albuterol/Ipratropium (Duoneb 3 Mg/0.5 Mg (3 Ml) Ud) 3 ml IH Q2H PRN PRN Reason: Shortness of Breath Apixaban (Eliquis) 5 mg PO BID ALEXI PRN Reason: Protocol Benzocaine/Menthol (Cepacol Sore Throat) 1 mercedes MT Q2H PRN PRN Reason: Sore Throat Ergocalciferol (Drisdol 50,000 Intl Units Cap) 1 cap PO Q7D ALEXI Gabapentin (Neurontin) 400 mg PO TID ALEXI PRN Reason: Protocol Meropenem 500 mg/ Sodium (Chloride) 50 mls @ 100 mls/hr IVPB Q8 ALEXI PRN Reason: Protocol Stop: 08/26/17 14:29 Sodium Chloride (Sodium Chloride 0.9%) 1,000 mls @ 125 mls/hr IV .Q8H [facility] Last Admin: 08/26/17 00:19 Dose: 125 mls/hr eMAR Start Stop Document 08/26/17 00:19 [place] (Rec: 08/26/17 00:19 [place] [email or web address] Intravenous Solution Start Date 08/26/17 Start Time 00:19 End Date 08/26/17 End time 08:19 Total Infusion Time 480 Vancomycin HCl (Vancomycin 1gm) 1 gm in 250 mls @ 167 mls/hr IVPB DAILY [facility] PRN Reason: Protocol Metoprolol Tartrate (Lopressor) 25 mg PO BID [facility] Oxycodone HCl (Oxycodone Immediate Release Tab) 30 mg PO TID PRN PRN Reason: Pain, moderate (4-7) Pantoprazole Sodium (Protonix Ec Tab) 40 mg PO BID [facility] Discontinued Medications Albuterol/Ipratropium (Duoneb 3 Mg/0.5 Mg (3 Ml) Ud) 3 ml IH STAT STA Stop: 08/25/17 15:30 Last Admin: 08/25/17 15:58 Dose: 3 ml Aspirin (Aspirin) 325 mg PO STAT STA Stop: 08/25/17 16:52 Last Admin: 08/25/17 17:55 Dose: 325 mg Lactated Ringer's (Lactated Ringer's) 1,000 mls @ 500 mls/hr IV .Q2H ALEXI Last Admin: 08/25/17 16:55 Dose: 500 mls/hr eMAR Start Stop Document 08/25/17 16:55 LA (Rec: 08/25/17 16:56 [place] [email or web address] Intravenous Solution Start Date 08/25/17 Start Time 16:56 End Date 08/25/17 End time 18:56 Total Infusion Time 120 Ceftriaxone Sodium 500 mg/ (Sodium Chloride) 100 mls @ 100 mls/hr IVPB STAT STA Stop: 08/25/17 23:13 Last Admin: 08/25/17 23:18 Dose: 100 mls/hr eMAR Start Stop Document 08/25/17 23:18 LA (Rec: 08/25/17 23:20 [place] [email or web address] Intravenous Solution Start Date 08/25/17 Start Time 23:19 End Date 08/25/17 End time 00:19 Total Infusion Time -1380 Ibuprofen (Motrin Tab) 400 mg PO STAT STA Stop: 08/25/17 23:43 Last Admin: 08/26/17 00:17 Dose: 400 mg MAR Pain/Vitals Document 08/26/17 00:17 LA (Rec: 08/26/17 00:17 [place] [email or web address] Pain Reassessment Is This A Pain ReAssessment? No Sleep Is patient sleeping during reassessment? No Presence of Pain Presence of Pain No Vitals Temperature (97.6 F-99.6 F) 101 F Temperature Source Rectal Disposition/Present on Arrival - Present on Arrival Any Indicators Present on Arrival: Yes History of DVT/PE: Yes History of Uncontrolled Diabetes: No Urinary Catheter: No History of Decub. Ulcer: No History Surgical Site Infection Following: None - Disposition Have Diagnosis and Disposition been Completed?: Yes Diagnosis: Leukocytosis, Chest pain in adult, Abnormal LFTs, Failure of outpatient treatment, Dyspnea, Sepsis Disposition: HOSPITALIZED Disposition Time: 22:00 Isolation: Airborne Patient Plan: Discharge Patient Problems: Current Active Problems Problem Status Onset Abnormal LFTs Acute Chest pain in adult Acute Dyspnea Acute Failure of outpatient treatment Acute Leukocytosis Acute Sepsis Acute Condition: FAIR
--- NOTE | 2017-08-25 18:15 | RAD ---
HISTORY: dyspnea COMPARISON: Portable chest 08/12/2017. TECHNIQUE: Chest PA and lateral FINDINGS: LUNGS: No active pulmonary disease. PLEURA: No significant pleural effusion identified. No pneumothorax apparent. CARDIOVASCULAR: Normal. OSSEOUS STRUCTURES: No significant abnormalities. VISUALIZED UPPER ABDOMEN: Mentally right hemidiaphragm again evident. OTHER FINDINGS: None. IMPRESSION: No interval acute cardiopulmonary disease appreciated.
--- NOTE | 2017-08-25 20:40 | CARD ---
APPROVED REPORT EKG Measurement Heart [id number] <Conclusion> Sinus tachycardia Otherwise normal ECG
[2017-08-25 21:10] LABS: BASO # 0.01 K/mm3 (0.0-2.0); BASO % 0.1 % (0.0-3.0); EOS % 0.1 % (1.5-5.0); GRAN # 15.37 (1.4-6.5); GRAN % 85.5 % (50.0-68.0); HEMOGLOBIN 10.6 g/dL (12.0-16.0); LYMPH # 1.4 (1.2-3.4); LYMPH % 7.7 % (22.0-35.0); MEAN CELL VOLUME 93.4 fl (80.0-105.0); MEAN CORPUSCULAR HEMOGLOBIN 30.3 pg (25.0-35.0); MEAN CORPUSCULAR HGB CONC 32.4 g/dl (31.0-37.0); MEAN PLATELET VOLUME 8.9 fl (7.0-11.0); MONO # 1.2 (0.1-0.6); MONO % 6.6 % (1.0-6.0); RBC 3.5 10^6/uL (3.5-6.1); RED CELL DISTRIBUTION WIDTH 14.7 % (11.5-14.5)
[2017-08-25 21:14] LABS: VENOUS BLOOD GAS BASE EXCESS -8.5 mmol/L (0.0-2.0); VENOUS BLOOD GAS PO2 70 mm/Hg (30-55); VENOUS BLOOD PH 7.25 (7.32-7.43)
[2017-08-25 21:19] LABS: INR 1.1 (0.93-1.08); PROTHROMBIN TIME 12.6 SECONDS (9.4-12.5)
[2017-08-25 21:27] LABS: ALB/GLOB RATIO 1.2 (1.1-1.8); ALBUMIN 3.9 g/dL (3.0-4.8); ALT/SGPT 356 U/L (7-56); AST/SGOT 525 U/L (14-36); BLOOD UREA NITROGEN 19 mg/dL (7-21); GFR AFRICAN-AMERICAN 42; GFR NON-AFRICAN AMERICAN 35
[2017-08-25 21:35] LABS: B-TYPE NATRIURETIC PEPTIDE 149 pg/mL (0-450); TROPONIN I < 0.01 ng/mL
[2017-08-25] MEDS ORDERED: cefTRIAXone (Rocephin) 2 gm Inj IVPB STA ×2 (21:59→22:13)
[2017-08-25 22:17] LABS: URINE APPEARANCE SL CLOUDY (CLEAR); URINE BILIRUBIN NEGATIVE (NEGATIVE); URINE BLOOD TRACE-INTACT (NEGATIVE); URINE COLOR YELLOW (YELLOW); URINE GLUCOSE (UA) NEGATIVE (NEGATIVE); URINE LEUKOCYTE ESTERASE NEGATIVE Leu/uL (NEGATIVE); URINE PROTEIN TRACE mg/dL (<30 mg/dL); URINE UROBILINOGEN 0.2 E.U./dL (<1 E.U./dL)
[2017-08-25 22:21] LABS: URINE WBC NEGATIVE /hpf (0-6)
[2017-08-25] MEDS ORDERED: Benzocaine/Menthol (Cepacol) Lozenge MT PRN (23:20)
[2017-08-25 23:27] LABS: BARBITURATES, UR NEGATIVE (NEGATIVE); BENZODIAZEPINES, UR NEGATIVE (NEGATIVE); OPIATES, UR POSITIVE (NEGATIVE); PHENCYCLIDINE, UR NEGATIVE (NEGATIVE)
--- NOTE | 2017-08-26 00:10 | CP.PCM.HP ---
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 Pt states that she is generally short of breath at baseline, but last night her dyspnea worsened with productive yellow/brown sputum and streaks of blood. Pt also complains of associated sternal pain with coughing, sore throat, and MURILLO located behind her right eye. Pt was recently admitted and treated for PNA. Pt states that she had completed her course of PO antibiotics and was scheduled to follow up with her PMD next week. Pt also complaining of some urinary rentention. Pt states she generally drinks a lot of water and urinates appropriately. However, over the last 24 she has only urinated once despite drink copious amounts of water. Pt states that urine is dark, but denies hematuria or dysuria. Pt denies CP, n/v/d, fever, chills, MURILLO, fatigue, or any other complaints at this time. PMH: Protein C deficiency, asthma, HLD, HTN, atrial fibrillation, DVT with IVC filter, previous CVA, and warfarin induced necrosis with subsequent b/l partial masctectomy and bilateral fourth digit amputation PSH: Tonsillectomy, double mastectomy, bilateral fourth digit amputation, gastric bypass All: PCN PHx: Extensive family history of cancer. Mom: Breast Ca, Dad: metastatic cancer , unknown SH: Denies tobacco, alcohol or illicit drug use; ambulates with cane Meds: As per JUL PMD: Payal Present on Admission - Present on Admission Any Indicators Present on Admission: No Review of Systems - Review of Systems Review of Systems: 12 point ROS reviewed and is negative other than what is stated in HPI. Past Patient History - Infectious Disease Hx of Infectious Diseases: None - Tetanus Immunizations Tetanus Immunization: Unknown - Past Medical History & Family History Past Medical History?: Yes - Past Social History Smoking Status: Never Smoked - CARDIAC Hx Cardiac Disorders: Yes Hx Hypertension: Yes - PULMONARY Hx Respiratory Disorders: Yes Hx Asthma: Yes Hx Bronchitis: No Hx Chronic Obstructive Pulmonary Disease (COPD): No Hx Emphysema: No Hx Pneumonia: Yes Hx Respiratory Aspiration: No Hx Respiratory Tract Infection: No Hx Sleep Apnea: No Hx Tuberculosis: No - NEUROLOGICAL HX Cerebrovascular Accident: Yes - HEENT Hx HEENT Problems: Yes Hx Blind: Yes Hx Cataracts: No Hx Deafness: No Hx Difficulty Chewing: No Hx Epistaxis: No Hx Glaucoma: No Hx Macular Degeneration: No Other/Comment: Tonsillectomy - RENAL Hx Renal Failure: Yes - ENDOCRINE/METABOLIC Hx Endocrine Disorders: No Hx Adrenal Cancer: No Hx Diabetes Insipidus: No Hx Diabetes Mellitus Type 1: No Hx Diabetes Mellitus Type 2: No Hx Hyperthyroidism: No Hx Hypothyroidism: No Hx Systemic Lupus Erythematosus: No - HEMATOLOGICAL/ONCOLOGICAL Hx Blood Transfusions: Yes Hx Blood Transfusion Reaction: No - INTEGUMENTARY Hx Dermatological Problems: No Hx Basil Cell: No Hx Eczema: No Hx Melanoma: No Hx Psoriasis: No Hx Squamous Cell: No - MUSCULOSKELETAL/RHEUMATOLOGICAL Hx Arthritis: Yes - GASTROINTESTINAL Hx Gastrointestinal Disorders: Yes Hx Colostomy: No Hx Crohn's Disease: No Hx Diverticulitis: No Hx Gall Bladder Disease: Yes Hx Gastroesophageal Reflux: Yes Hx Ileostomy: No Hx Liver Failure: No Hx Pancreatitis: No HX Swallowing Problems: No Other/Comment: Gastric Bypass Surgery. Appetite Changes. Weight Loss. - GENITOURINARY/GYNECOLOGICAL Hx Genitourinary Disorders: No Hx Hematuria: No Hx Incontinence: No Hx Sexually Transmitted Disorders: No Hx Urinary Tract Infection: Yes - PSYCHIATRIC Hx Psychophysiologic Disorder: No Hx Anxiety: No Hx Bipolar Disorder: No Hx Depression: No Hx Emotional Abuse: No Hx Hallucinations: No Hx Panic Symptoms: No Hx Post Traumatic Stress Disorder: No Hx Psychosis: No Hx Physical Abuse: No Hx Schizophrenia: No Hx Sexual Abuse: No Hx Substance Use: No - SURGICAL HISTORY Hx Mastectomy: No - ANESTHESIA Hx Anesthesia Reactions: No Hx Malignant Hyperthermia: No Meds Allergies/Adverse Reactions: Allergies Allergy/AdvReac Type Severity Reaction Status Date / Time Penicillins Allergy ANGIOEDEMA/SHORTNESS Verified 08/11/17 14:14 OF BREATH Physical Exam - Constitutional Appears: No Acute Distress - Head Exam Head Exam: NORMAL INSPECTION - Eye Exam Eye Exam: Normal appearance - ENT Exam ENT Exam: Mucous Membranes Dry Additional comments: Oropharanyx clear, no erythema or exudates - Neck Exam Neck exam: Positive for: Normal Inspection - Respiratory Exam Respiratory Exam: Clear to Auscultation Bilateral. absent: Rales, Rhonchi, Wheezes - Cardiovascular Exam Cardiovascular Exam: RRR, +S1, +S2. absent: Diastolic murmur, Gallop, Rubs, Systolic Murmur - GI/Abdominal Exam GI & Abdominal Exam: Soft. absent: Distended, Guarding, Rebound, Tenderness Additional comments: indurated, mobile mass 2x1 inch in R lateral abdomen - Extremities Exam Extremities exam: Positive for: pedal edema Additional comments: 2+ b/l and lower leg edema 2+ b/l - Back Exam Back exam: NORMAL INSPECTION - Neurological Exam Neurological exam: Alert, CN II-XII Intact, Oriented x3 - Psychiatric Exam Psychiatric exam: Normal Affect, Normal Mood - Skin Skin Exam: Dry, Intact, Normal Color, Warm Results - Vital Signs Recent Vital Signs: Last Vital Signs Temp 101.5 F H 08/25/17 22:44 Pulse 106 H 08/25/17 23:18 Resp 18 08/25/17 23:18 BP 103/60 08/25/17 23:18 Pulse Ox 98 08/25/17 23:18 - Labs Result Diagrams: 08/25/17 21:05 08/25/17 21:05 Labs: Laboratory Results - last 24 hr 08/25/17 08/25/17 08/25/17 21:05 21:05 21:05 WBC 18.0 H D RBC 3.50 Hgb 10.6 L Hct 32.7 L MCV 93.4 MCH 30.3 MCHC 32.4 RDW 14.7 H Plt Count 203 MPV 8.9 Gran % 85.5 H Lymph % (Auto) 7.7 L [place] % (Auto) 6.6 H Eos % (Auto) 0.1 L Baso % (Auto) 0.1 Gran # 15.37 H Lymph # (Auto) 1.4 [place] # (Auto) 1.2 H Eos # (Auto) 0.0 Baso # (Auto) 0.01 PT 12.6 H INR 1.10 H APTT 36.0 pO2 70 H VBG pH 7.25 L VBG pCO2 42.0 VBG HCO3 18.4 L VBG Total CO2 19.7 L VBG O2 Sat (Calc) 94.9 H VBG Base Excess -8.5 L VBG Potassium 3.9 Sodium 136.0 Chloride 107.0 Glucose 97 Lactate 2.0 FiO2 21.0 Potassium Carbon Dioxide Anion Gap BUN Creatinine Est GFR ( Amer) Est GFR (Non-Af Amer) Random Glucose Calcium Total Bilirubin AST ALT Alkaline Phosphatase Lactate Dehydrogenase Total Creatine Kinase Troponin I NT-Pro-B Natriuret Pep Total Protein Albumin Globulin Albumin/Globulin Ratio Venous Blood Potassium 3.9 Urine Color Urine Appearance Urine pH Ur Specific Mission Urine Protein Urine Glucose (UA) Urine Ketones Urine Blood Urine Nitrate Urine Bilirubin Urine Urobilinogen Ur Leukocyte Esterase Urine RBC Urine WBC Ur Epithelial Cells Urine Opiates Screen Urine Methadone Screen Ur Barbiturates Screen Ur Phencyclidine Scrn Ur Amphetamines Screen U Benzodiazepines Scrn U Oth Cocaine Metabols U Cannabinoids Screen BBK History Checked 08/25/17 08/25/17 08/25/17 21:05 21:30 21:30 WBC RBC Hgb Hct MCV MCH MCHC RDW Plt Count MPV Gran % Lymph % (Auto) [place] % (Auto) Eos % (Auto) Baso % (Auto) Gran # Lymph # (Auto) [place] # (Auto) Eos # (Auto) Baso # (Auto) PT INR APTT pO2 VBG pH VBG pCO2 VBG HCO3 VBG Total CO2 VBG O2 Sat (Calc) VBG Base Excess VBG Potassium Sodium 136 Chloride 106 Glucose Lactate FiO2 Potassium 4.2 Carbon Dioxide 18 L Anion Gap 17 BUN 19 Creatinine 1.5 H Est GFR ( Amer) 42 Est GFR (Non-Af Amer) 35 Random Glucose 93 Calcium 9.0 Total Bilirubin 0.9 AST 525 H D ALT 356 H Alkaline Phosphatase 131 H D Lactate Dehydrogenase 1619 H Total Creatine Kinase 139 Troponin I < 0.01 NT-Pro-B Natriuret Pep 149 Total Protein 7.1 Albumin 3.9 Globulin 3.2 Albumin/Globulin Ratio 1.2 Venous Blood Potassium Urine Color Urine Appearance Urine pH Ur Specific [place] Urine Protein Urine Glucose (UA) Urine Ketones Urine Blood Urine Nitrate Urine Bilirubin Urine Urobilinogen Ur Leukocyte Esterase Urine RBC Urine WBC Ur Epithelial Cells Urine Opiates Screen Positive H Urine Methadone Screen Negative Ur Barbiturates Screen Negative Ur Phencyclidine Scrn Negative Ur Amphetamines Screen Negative U Benzodiazepines Scrn Negative U Oth Cocaine Metabols Negative U Cannabinoids Screen Negative BBK History Checked Patient has bt 08/25/17 22:11 WBC RBC Hgb Hct MCV MCH MCHC RDW Plt Count MPV Gran % Lymph % (Auto) [place] % (Auto) Eos % (Auto) Baso % (Auto) Gran # Lymph # (Auto) [place] # (Auto) Eos # (Auto) Baso # (Auto) PT INR APTT pO2 VBG pH VBG pCO2 VBG HCO3 VBG Total CO2 VBG O2 Sat (Calc) VBG Base Excess VBG Potassium Sodium Chloride Glucose Lactate FiO2 Potassium Carbon Dioxide Anion Gap BUN Creatinine Est GFR ( Amer) Est GFR (Non-Af Amer) Random Glucose Calcium Total Bilirubin AST ALT Alkaline Phosphatase Lactate Dehydrogenase Total Creatine Kinase Troponin I NT-Pro-B Natriuret Pep Total Protein Albumin Globulin Albumin/Globulin Ratio Venous Blood Potassium Urine Color Yellow Urine Appearance Sl cloudy Urine pH 6.0 Ur Specific [place] 1.020 Urine Protein Trace H Urine Glucose (UA) Negative Urine Ketones Negative Urine Blood Trace-intact H Urine Nitrate Negative Urine Bilirubin Negative Urine Urobilinogen 0.2 Ur Leukocyte Esterase Negative Urine RBC 5 - 10 Urine WBC Negative Ur Epithelial Cells 1 - 3 Urine Opiates Screen Urine Methadone Screen Ur Barbiturates Screen Ur Phencyclidine Scrn Ur Amphetamines Screen U Benzodiazepines Scrn U Oth Cocaine Metabols U Cannabinoids Screen BBK History Checked Assessment & Plan - Assessment and Plan (Free Text) Assessment: 62 yo F with PMH of Protein C deficiency, asthma, HLD, HTN, atrial fibrillation , DVT with IVC filter, previous CVA, and warfarin induced necrosis with subsequent b/l masctectomy and bilateral fourth digit amputation admitted for SIRS at risk for sepsis and elevated LFT's. Plan: 1. SIRS, at risk for sepsis, possible HCAP - Febrile, tachycardic, leukocytosis - VBG: pH 7.25, pO2 70, pCO2 42, HCO3 18, Lactate 2 - CXR showed no active disease - UA negative - EKG showed sinus tachycardia - Serum lactate ordered - F/u blood, sputum, throat, urine culture - Duoneb prn - O2 via 2L NC - Merrem and Vanco to cover for HCAP due to recent admission Vanco to be continued if ID agrees - ID consulted 2. Transaminitis - AST 525, ALT 356, Tbili WNL - ALP 131, LDH 1619 - Hep panel ordered - Acetaminophen level ordered - GI consulted 3. Anemia - Hgb 10.6 - Appears to be at baseline - Cont to monitor 4. JOSEFINA - Cr 1.5 - IVF - Cont to monitor 5. HTN - Metoprolol - Hold Cozaar due to JOSEFINA 6. H/o A-fib - Eliquis - Metoprolol 7. H/o DVT - Eliquis GI/DVT PPx - Protonix - Eliquis Pt seen and discussed in detail with Dr. Britton. Ted Thomsa, PGY1 <Marilyn Britton - Last Filed: 08/26/17 00:53> Results - Vital Signs Recent Vital Signs: Last Vital Signs Temp 101 F H 08/26/17 00:17 Pulse 99 H 08/26/17 00:42 Resp 19 08/26/17 00:42 BP 112/52 L 08/26/17 00:42 Pulse Ox 97 08/26/17 00:42 - Labs Result Diagrams: 08/25/17 21:05 08/25/17 21:05 Attending/Attestation - Attestation I have personally seen and examined this patient.: Yes I have fully participated in the care of the patient.: Yes I have reviewed all pertinent clinical information: Yes Notes (Text): 08/26/17 00:52 Agree with documentation and orders placed
[2017-08-26] MEDS: Sodium Chloride 0.9% 1,000 ML IV SCH ×3 (00:19→20:06)
[2017-08-26] MEDS ORDERED: Lactated Ringer's 1,000 ML IV SCH (01:30)
[2017-08-26 03:02] LABS: VENOUS BLOOD GAS BASE EXCESS -5.9 mmol/L (0.0-2.0); VENOUS BLOOD GAS PO2 121 mm/Hg (30-55)
[2017-08-26 06:25] LABS: HEMOGLOBIN 9.9 g/dL (12.0-16.0); MEAN CELL VOLUME 93.1 fl (80.0-105.0); MEAN CORPUSCULAR HEMOGLOBIN 30.8 pg (25.0-35.0); MEAN CORPUSCULAR HGB CONC 33.1 g/dl (31.0-37.0); RBC 3.21 10^6/uL (3.5-6.1); RED CELL DISTRIBUTION WIDTH 14.6 % (11.5-14.5); WHITE BLOOD COUNT 20.1 10^3/ul (4.5-11.0)
[2017-08-26] MEDS: oxyCODONE 30 mg Immediate Release Tab PO PRN ×2 (06:25→14:45)
[2017-08-26] MEDS: Meropenem 500 MG in Sodium Chloride 0.9% 50 ML IVPB SCH ×2 (06:38→15:13)
[2017-08-26 07:05] LABS: ALB/GLOB RATIO 1.1 (1.1-1.8); ALBUMIN 3.5 g/dL (3.0-4.8)
[2017-08-26 09:31] LABS: TROPONIN I < 0.01 ng/mL
[2017-08-26] MEDS ORDERED: Vancomycin 1gm in NS 250ml 1 GM/250 ML BAG IVPB SCH (10:00)
[2017-08-26] MEDS ORDERED: Azithromycin 500MG/NS 250ml 500 MG/250 ML BAG IVPB SCH (10:00)
--- NOTE | 2017-08-26 10:00 | US ---
Abdominal ultrasound History: Transaminitis. Comparison: None available. Technique: Real-time sonography was performed through the abdomen. Findings: Liver: Prominent measuring 17.6 centimeters in length. Increased echogenicity of the hepatic parenchymal cortex suggestive for fatty infiltration versus hepatic parenchymal disease. Clinical correlation. Gallbladder: Cholelithiasis with gallbladder calculus measuring up to 1.1 centimeters. Normal wall thickness of 1.6 millimeters. Negative sonographic Burns's sign. Common bile duct is prominent measuring up to 1.1 centimeters. Pancreas not well visualized. Spleen measures 8.3 centimeters in length, within normal limits. Visualized IVC is preserved. Limited visualization of the aorta. Right kidney: 10.7 x 4.6 x 4.8 centimeters. Midpole hypoechoic cyst measuring 2.8 x 2.5 x 2.4 centimeters. No calculi or hydronephrosis. Left Kidney: 10.7 x 5.5 x 5.3 centimeters. No calculi or hydronephrosis. Study somewhat limited secondary to gas distention of the patient. Impression: Prominent liver measuring up to 17.6 centimeters in length with associated increased echogenicity of the hepatic parenchymal cortex suggestive for fatty infiltration versus hepatic parenchymal disease. Clinical correlation. Cholelithiasis. Normal gallbladder wall thickness of 1.6 millimeters. Negative sonographic Burns's sign. Common bile duct is prominent measuring up to 1.1 centimeters. Clinical correlation. Pancreas and aorta not well visualized. Midpole right renal cyst measuring up to 2.8 centimeters. Study somewhat limited secondary to gas distention of the bowel.
[2017-08-26] MEDS: Pantoprazole 40 mg EC Tab PO SCH ×2 (12:02→20:06)
[2017-08-26 12:41] LABS: HEPATITIS B SURFACE AG Negative (NEGATIVE)
[2017-08-26 12:47] LABS: HEPATITIS A IGM NEGATIVE (NEGATIVE); HEPATITIS B CORE AB NEGATIVE (NEGATIVE)
[2017-08-26 12:58] LABS: HEPATITIS C ANTIBODY NEGATIVE (NEGATIVE)
--- NOTE | 2017-08-26 15:47 | CON ---
DATE: 08/26/2017 HISTORY OF PRESENT ILLNESS: I saw the patient this morning. She is a 62-year-old black female with past medical history of protein C deficiency, asthma, hypertension, atrial fibrillation, DVT with filter, and partial mastectomy, who presented with increasing shortness of breath and water retention. She also indicates there is substantial amount of substernal chest pressure, especially after coughing and that she has been coughing significantly and hard associated with shortness of breath, initially was also associated with productive sputum for the past day and a half. Patient indicated she had recently cleared a course of oral antibiotics and we will schedule a followup with her PMD within a week. At the current time, the patient has mild epigastric and lower substernal chest pressure. There is no radiation to the neck or to the left shoulder. PHYSICAL EXAMINATION: VITAL SIGNS: I reviewed this patient's vital signs. HEENT: Noncontributory. LUNGS: Decreased breath sounds at the bases. HEART: Regular rhythm. ABDOMEN: Soft. Mild tenderness in epigastric area. LABORATORY DATA: I reviewed this patient's laboratory data which is significant for a white count of 18,000 with an H and H of 10/32. INR was within normal limits. Chemistry indicates BUN and creatinine ratio of 19 and 1.5. Bilirubin is 0.9. Transaminases 525/356, alkaline phosphatase 131, LDH 6019. Troponin less than 0.01. B-type natriuretic peptide 149. Chest x-ray; no interval acute cardiopulmonary disease noted. Her EKG was read as normal EKG with sinus tachycardia. ASSESSMENT: A 62-year-old black female admitted with mild epigastric discomfort with substernal chest discomfort and tightness, especially with coughing. Substernal tightness is probably related to her coughing issues. She does not practice antireflux precautions. This was discussed at the bedside. Patient was recently treated with oral antibiotics. The transaminases were normal as of 08/04/2017. So, in the interval between 08/04 and 08/25, she has an increase in transaminases, quite possibly this could be due to her infection or the possibility is some transient hepatic low-flow phenomenon with the elevation of LDH. The other possibility would consist of possible hepatic drug reaction based on elevated transaminases with a normal bilirubin. Probably, the patient will be seen by Dr. Jennifer mckenna around this morning. She is currently on meropenem and vancomycin plus ceftriaxone which had recently been discontinued. Hao Dixon DO, PhD ZORA
[2017-08-26 16:43] LABS: TROPONIN I < 0.01 ng/mL
--- NOTE | 2017-08-26 19:47 | MRI ---
EXAM: MR Abdomen Without Intravenous Contrast EXAM DATE/TIME: 08/26/2017 1:16 PM CLINICAL HISTORY: The patient age is 62 years old and is female; Signs and symptoms; Other: R/O cbd obstruction Facility exam id and description: Mri mrcp mrcp and abdomen w/o contrast TECHNIQUE: Multiplanar magnetic resonance images of the abdomen without intravenous contrast. COMPARISON: No relevant prior studies available. FINDINGS: Lower thorax: There is a small hiatal hernia. Fluid is seen within the distal esophagus, suggestive of reflux or decreased motility. Liver: No mass. Gallbladder and bile ducts: There is biliary dilatation. The common bile duct measures 1.1 cm in diameter. There is development of variation of the bilateral pancreatic duct, with no visualized common channel distally. No definitive filling defect is visualized within the common bile duct to suggest a common bile duct stone. There is dilatation of the pancreatic duct measuring 6-7 mm in diameter. Ampullary stenosis cannot be excluded. T2 hypointense gallstones are visualized. Pancreas: Atrophic changes are noted of the pancreas. Spleen: No splenomegaly. Adrenals: No mass. Kidneys and ureters: T2 hyperintense renal cysts are visualized bilaterally. At the midpole of the right kidney, there is a 2.7 x 2 x 1 cm mildly complex cyst, with internal septation. There is no hydronephrosis bilaterally. Stomach and bowel: A gas-filled colon is visualized. There is no visualized small bowel distention. Intraperitoneal space: No significant fluid collection. Bones/joints: Degenerative changes are noted within the spine. Vasculature: No abdominal aortic aneurysm. Lymph nodes: No enlarged lymph nodes. IMPRESSION: 1. Cholelithiasis. There is biliary dilatation. 3. There is development of variation of the bilateral pancreatic duct, with no visualized common channel distally. No definitive filling defect is visualized within the common bile duct to suggest a common bile duct stone. There is dilatation of the pancreatic duct. Ampullary stenosis cannot be excluded. 4. There is a small hiatal hernia. Fluid is seen within the distal esophagus, suggestive of reflux or decreased motility. 5. Renal cysts are visualized bilaterally. At the midpole of the right kidney, there is a 2.7 x 2 x 1 cm mildly complex cyst, with internal septation. Follow-up ultrasonography is recommended. 6. Additional findings described above.
[2017-08-26] MEDS: Meropenem IV 1 gm in NS 50 ML IVPB SCH ×2 (20:04→21:15)
[2017-08-26] MEDS ORDERED: guaiFENesin DM 100 mg-10 mg/5 ml UD PO ONE (22:10)
[2017-08-27] MEDS: Sodium Chloride 0.9% 1,000 ML IV SCH ×3 (00:45→15:42)
--- NOTE | 2017-08-27 01:37 | CON ---
DATE: LOCATION: The patient seen in 269, bed 2. CHIEF COMPLAINT: Weakness and fever for several days. HISTORY OF PRESENT ILLNESS: This is a 62-year-old female with a history of hypertension, history of TIA, dyslipidemia, hypercoagulable state with protein C deficiency, chronic back pain, who has had multiple hospitalizations, and has had a gastric bypass, hysterectomy, history of a right breast abscess, with arthritis and anemia, admitted to the emergency room. In the emergency room, the patient was seen by also complaining of shortness of breath, found to have a fever of 101.5, Infectious Disease consultation requested. The patient is complaining of cough, shortness of breath, fevers, occasional chills, minimal abdominal pain, and no headaches or blurred vision. PAST MEDICAL HISTORY: Is significant for hypercoagulable state with protein C deficiency, dyslipidemia, TIA, hypertension, right breast abscess, peripheral vascular disease, arthritis, Parkinson's disease. PAST SURGICAL HISTORY: Significant for hysterectomy and gastric bypass. ALLERGIES: THE PATIENT IS ALLERGIC TO PENICILLIN; HOWEVER, SHE HAS TOLERATED MEROPENEM IN THE PAST. MEDICATIONS AT HOME: Include metoprolol, gabapentin, fluconazole, Eliquis, oxycodone. PHYSICAL EXAMINATION: VITAL SIGNS: The patient is in bed, with a temperature of 98, T-max is 101.5, heart rate of 106, respiratory rate of 21, blood pressure is 96/40, O2 saturation is 97%. HEENT: Unremarkable. NECK: Supple. LUNGS: Have decreased breath sounds. HEART: Normal S1 and S2. ABDOMEN: Soft, nontender. LABORATORY DATA: Reveals a white count of 18,000, hemoglobin of 10, platelets of 203. Coagulation is noted. The chemistry reveals the patient has a BUN of 20, creatinine of 1.4. AST is 276, ALT is 261. Procalcitonin is 1.63. Urinalysis is noted. Hepatitis profile is negative. Ultrasound of the abdomen shows cholelithiasis, gallbladder calculus measuring up to 1.1 cm, normal wall thickness, negative Burns's sign, common bile duct is measuring up to 1.1 cm, and gastric distension. The patient had CAT scan of the abdomen, last CAT scan was in 12/2016. The patient's chest x-ray is reported to be negative, and the patient is having renal insufficiency with a creatinine of 1.4, procalcitonin is 1.63. Dr. Hao Dixon's progress and consultation note is reviewed. ASSESSMENT AND PLAN: This 62-year-old female with hypercoagulable state, protein C deficiency, history of right breast abscess, peripheral vascular disease, transient ischemic attack, dyslipidemia, hypertension, Parkinson's, chronic back pain, anemia, arthritis, admitted with a temperature of 101, white count of 18,000, elevated LFTs and negative chest x-ray, and unremarkable urinalysis. Systemic inflammatory response syndrome. Blood cultures and urine cultures and sputum cultures have been ordered. We will start the patient on meropenem. Due to the renal insufficiency, we will discontinue the vancomycin, treat the patient with meropenem, discontinue the ceftriaxone. We will order a CAT scan of the abdomen and pelvis. We will make further recommendations upon availability of initial results. We will get the CAT scan of the abdomen and pelvis with p.o. contrast due to the renal insufficiency. MRCP has been ordered. We will follow with you. Consider a HIDA scan to rule out the cholangitis or cystitis. Josh Rodriguez MD
[2017-08-27] MEDS: oxyCODONE 30 mg Immediate Release Tab PO PRN ×2 (05:46→14:26)
[2017-08-27 06:33] LABS: HEMOGLOBIN 9.9 g/dL (12.0-16.0); MEAN CELL VOLUME 92.7 fl (80.0-105.0); MEAN CORPUSCULAR HEMOGLOBIN 30.3 pg (25.0-35.0); MEAN CORPUSCULAR HGB CONC 32.7 g/dl (31.0-37.0); MEAN PLATELET VOLUME 9.6 fl (7.0-11.0); RBC 3.27 10^6/uL (3.5-6.1); RED CELL DISTRIBUTION WIDTH 14.6 % (11.5-14.5); WHITE BLOOD COUNT 11.5 10^3/ul (4.5-11.0)
[2017-08-27] MEDS ORDERED: Barium Sulfate Susp 2.1% w/v, 2.0% w/w 450 mL Bottle PO ONE (06:43)
[2017-08-27 07:09] LABS: ALB/GLOB RATIO 1.1 (1.1-1.8); ALBUMIN 3.6 g/dL (3.0-4.8); ALT/SGPT 186 U/L (7-56); AST/SGOT 134 U/L (14-36); BLOOD UREA NITROGEN 14 mg/dL (7-21); CALCIUM 9.5 mg/dL (8.4-10.5); GFR AFRICAN-AMERICAN > 60; GFR NON-AFRICAN AMERICAN > 60
--- NOTE | 2017-08-27 09:13 | CP.PCM.PN ---
<Tabitha Gisbon - Last Filed: 08/27/17 14:07> Subjective - Date & Time of Evaluation Date of Evaluation: 08/27/17 Time of Evaluation: 09:13 - Subjective Subjective: pgy 2 progress note for hospitalist service patient seen and examined at bedside. no acute distress. no acute events over night, per nurse patient was afebrile overnight. patient stated that she was not able to sleep. she states that her breathing has improved. she denies headache, fever, chills, n/n, dysurea. Objective - Vital Signs/Intake and Output Vital Signs (last 24 hours): Temp Pulse Resp BP Pulse Ox 98.6 F 80 20 110/68 97 08/27/17 05:32 08/27/17 05:32 08/27/17 05:32 08/27/17 05:32 08/27/17 05:32 Intake and Output: 08/27/17 08/27/17 06:59 18:59 Intake Total 1979 Balance 1979 - Medications Medications: Current Medications Albuterol/Ipratropium (Duoneb 3 Mg/0.5 Mg (3 Ml) Ud) 3 ml IH Q2H PRN PRN Reason: Shortness of Breath Apixaban (Eliquis) 5 mg PO BID ALEXI PRN Reason: Protocol Last Admin: 08/26/17 20:05 Dose: 5 mg Benzocaine/Menthol (Cepacol Sore Throat) 1 mercedes MT Q2H PRN PRN Reason: Sore Throat Last Admin: 08/26/17 06:25 Dose: 1 mercedes Benzonatate (Tessalon Perles) 100 mg PO TID PRN PRN Reason: cough Last Admin: 08/26/17 12:02 Dose: 100 mg Ergocalciferol (Drisdol 50,000 Intl Units Cap) 1 cap PO Q7D ALEXI Gabapentin (Neurontin) 400 mg PO TID ALEXI PRN Reason: Protocol Last Admin: 08/26/17 15:15 Dose: 400 mg Sodium Chloride (Sodium Chloride 0.9%) 1,000 mls @ 125 mls/hr IV .Q8H ALEXI Last Admin: 08/27/17 08:28 Dose: Not Given Meropenem (Merrem Iv 1 Gm Premix) 50 mls @ 100 mls/hr IVPB Q12 ALEXI PRN Reason: Protocol Stop: 09/04/17 17:16 Last Admin: 08/26/17 21:15 Dose: 100 mls/hr Metoprolol Tartrate (Lopressor) 25 mg PO BID [facility] Last Admin: 08/26/17 20:05 Dose: 25 mg Oxycodone HCl (Oxycodone Immediate Release Tab) 30 mg PO TID PRN PRN Reason: Pain, moderate (4-7) Last Admin: 08/27/17 05:46 Dose: 30 mg Pantoprazole Sodium (Protonix Ec Tab) 40 mg PO BID [facility] Last Admin: 08/26/17 20:06 Dose: 40 mg - Labs Labs: 08/27/17 06:00 08/27/17 06:00 PT 12.6 SECONDS (9.4-12.5) H 08/25/17 21:05 INR 1.10 (0.93-1.08) H 08/25/17 21:05 APTT 36.0 Seconds (25.1-36.5) 08/25/17 21:05 - Constitutional Appears: Well, No Acute Distress - Head Exam Head Exam: ATRAUMATIC, NORMAL INSPECTION, NORMOCEPHALIC - Eye Exam Eye Exam: EOMI, Normal appearance - ENT Exam ENT Exam: Mucous Membranes Moist - Respiratory Exam Respiratory Exam: Clear to Ausculation Bilateral, NORMAL BREATHING PATTERN. absent: Rales, Rhonchi, Wheezes - Cardiovascular Exam Cardiovascular Exam: REGULAR RHYTHM, +S1, +S2. absent: Tachycardia, Murmur - GI/Abdominal Exam GI & Abdominal Exam: Soft, Normal Bowel Sounds. 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 Plan: sepsis - seconday to possible bactremia, possible HCAP - Febrile, tachycardic, leukocytosis on admission, overnight patient is afebrile , leukocytosis is down trending - CXR showed no active disease - UA negative - EKG showed sinus tachycardia - blood culture positive for gram positive cocci - throat and urine cultures negative - CT abd/pel showed infiltrate in lingular segment of left upper lobe - continue Duoneb prn - continue Merrem - ID consulted Transaminitis - LFTs downtrending - Hep panel negative - Acetaminophen level negative - abd US showed prominent liver (17.6 cm), Cholelithiasis. Common bile duct is prominent measuring up to 1.1 cm - MRCP showed cholelithiasis, biliary dilatation, dilatation of the pancreatic duct - will order HIDA scan if abnormal with consult surgery - GI consulted Anemia - Hgb 10.6 - Appears to be at baseline - Cont to monitor JOSEFINA - creatinine downtrend - continue IVF - Cont to monitor HTN - controlled - continue Metoprolol - Hold Cozaar due to JOSEFINA H/o A-fib - rate controlled - continue Eliquis for anticoagulation - continue Metoprolol for rate control H/o DVT - Eliquis GI/DVT PPx - Protonix - Eliquis <Nik Benz A - Last Filed: 08/27/17 15:38> Objective - Vital Signs/Intake and Output Vital Signs (last 24 hours): Temp Pulse Resp BP Pulse Ox 97.9 F 101 H 20 129/75 97 08/27/17 12:00 08/27/17 14:28 08/27/17 12:00 08/27/17 14:28 08/27/17 05:32 Intake and Output: 08/27/17 08/27/17 06:59 18:59 Intake Total 1979 Balance 1979 - Medications Medications: Current Medications Albuterol/Ipratropium (Duoneb 3 Mg/0.5 Mg (3 Ml) Ud) 3 ml IH Q2H PRN PRN Reason: Shortness of Breath Apixaban (Eliquis) 5 mg PO BID ALEXI PRN Reason: Protocol Last Admin: 08/27/17 14:28 Dose: 5 mg Benzocaine/Menthol (Cepacol Sore Throat) 1 mercedes MT Q2H PRN PRN Reason: Sore Throat Last Admin: 08/26/17 06:25 Dose: 1 mercedes Benzonatate (Tessalon Perles) 100 mg PO TID PRN PRN Reason: cough Last Admin: 03/28/18 12:02 Dose: 100 mg Ergocalciferol (Drisdol 50,000 Intl Units Cap) 1 cap PO Q7D ALEXI Gabapentin (Neurontin) 400 mg PO TID ALEXI PRN Reason: Protocol Last Admin: 08/27/17 14:28 Dose: 400 mg Sodium Chloride (Sodium Chloride 0.9%) 1,000 mls @ 125 mls/hr IV .Q8H ALEXI Last Admin: 08/27/17 08:28 Dose: Not Given Meropenem (Merrem Iv 1 Gm Premix) 50 mls @ 100 mls/hr IVPB Q12 ALEXI PRN Reason: Protocol Stop: 09/04/17 17:16 Last Admin: 08/27/17 11:54 Dose: 100 mls/hr Metoprolol Tartrate (Lopressor) 25 mg PO BID [facility] Last Admin: 08/27/17 14:28 Dose: 25 mg Oxycodone HCl (Oxycodone Immediate Release Tab) 30 mg PO TID PRN PRN Reason: Pain, moderate (4-7) Last Admin: 08/27/17 14:26 Dose: 30 mg Pantoprazole Sodium (Protonix Ec Tab) 40 mg PO BID [facility] Last Admin: 08/27/17 14:26 Dose: 40 mg - Labs Labs: 08/27/17 06:00 08/27/17 06:00 PT 12.6 SECONDS (9.4-12.5) H 08/25/17 21:05 INR 1.10 (0.93-1.08) H 08/25/17 21:05 APTT 36.0 Seconds (25.1-36.5) 08/25/17 21:05 Attending/Attestation - Attestation I have personally seen and examined this patient.: Yes I have fully participated in the care of the patient.: Yes I have reviewed all pertinent clinical information, including history, physical exam and plan: Yes Notes (Text): 08/27/17 15:30 62 year old female with past medical history of protein C deficiency, hypertension, atrial fibrillation, DVT on anticoagulation s/p IVC filter and history of warfarin induced necrosis who presented with sepsis, shortness of breath and elevated LFTs. CXR was negative. Procalcitonin is elevated. Leukocytosis is improving. BCx x 1 is positive for gram positive cocci. Continue with iv antibiotics as per ID. CT abd/pelvis does show left upper lobe lingular segment infiltrate. Transaminitis most likely multifactorial secondary to recent antibiotics; also cholelithiasis reviewed on imaging. MRCP findings discussed with ID and GI. HIDA scan was ordered which was negative. Patient denies abdominal pain. LFTs are trending down. Hepatitis panel was negative. She initially had JOSEFINA which improved with IVF. Will continue to monitor her renal function. She is on eliquis for afib. Nik Benz MD Hospitalist.
[2017-08-27] MEDS: Pantoprazole 40 mg EC Tab PO SCH ×3 (10:00→18:25)
--- NOTE | 2017-08-27 10:32 | CT ---
PROCEDURE: CT Abdomen and Pelvis without intravenous contrast HISTORY: fever inc LFT COMPARISON: CT 08/11/2017 TECHNIQUE: Without contrast. Contrast Dose: Radiation dose: Total exam DLP = Total exam DLP = 1017 mGy-cm. This CT exam was performed using one or more of the following dose reduction techniques: Automated exposure control, adjustment of the mA and/or kV according to patient size, and/or use of iterative reconstruction technique. FINDINGS: LOWER THORAX: A suture line and multiple clips are seen in the stomach. There is a patchy infiltrate in the lingular segment of the left upper lobe which was not seen on the previous study and is suspicious for pneumonia LIVER: Unremarkable. No gross lesion or ductal dilatation. GALLBLADDER AND BILE DUCTS: Unremarkable. PANCREAS: Unremarkable. No gross lesion or ductal dilatation. SPLEEN: Unremarkable. ADRENALS: Unremarkable. No mass. KIDNEYS AND URETERS: Unremarkable. No hydronephrosis. No solid mass. VASCULATURE: Unremarkable. No aortic aneurysm. A caval filter is present BOWEL: Unremarkable. No obstruction. No gross mural thickening. APPENDIX: Unremarkable. Normal appendix. PERITONEUM: Unremarkable. No free fluid. No free air. LYMPH NODES: Unremarkable. No enlarged lymph nodes. BLADDER: Unremarkable. REPRODUCTIVE: Unremarkable. BONES: No acute fracture. OTHER FINDINGS: None. IMPRESSION: Infiltrate in the lingular segment of the left upper lobe. No acute intra-abdominal findings
[2017-08-27] MEDS: Meropenem IV 1 gm in NS 50 ML IVPB SCH ×2 (11:54→21:00)
--- NOTE | 2017-08-27 14:52 | NM ---
PROCEDURE: Nuclear Medicine Hepatobiliary Scan submit HISTORY: dilated biliary duct COMPARISON: 08/27/2017 CT abdomen and pelvis. 08/26/2017 abdominal ultrasound TECHNIQUE: 5.0 mCi of technetium 99m Mebrofenin was administered intravenously. Planar images of the abdomen were obtained at 5 min intervals to 60 mins. Delayed images were also obtained. FINDINGS: LIVER: Timely and homogenous uptake. COMMON BILE DUCT: identified at 15 mins. GALLBLADDER: identified at 15 mins. SMALL BOWEL: Not Identified at 60 mins. This may be due to preferential filling of the dilated gallbladder. IMPRESSION: Unremarkable Hepatobiliary Scan. The cystic duct is patent.
--- NOTE | 2017-08-27 15:29 | PN ---
DATE: 08/27/2017 SUBJECTIVE: I saw Ms. Rainey this morning. She is a 62-year-old black female with complaints of substernal chest discomfort and coughing, found to have elevated LFTs on admission. At the bedside this morning, the patient denies abdominal pain, but the coughing is still pretty significant. There is no hematemesis or rectal bleeding. PHYSICAL EXAMINATION VITAL SIGNS: I reviewed this patient's vital signs. HEENT: Noncontributory. LUNGS: Decreased breath sounds. HEART: Irregular rhythm. ABDOMEN: Soft. No tenderness elicited. LABORATORY DATA: Indicates most recent H&H of 03/29 today. Chemistry indicates decrease in transaminases as well as LDH and alkaline phosphatase. Currently, the AST/ALT ratio was 276/261. Normal bilirubin, LDH 802. Hepatitis serology is noncontributory. The patient had an MRCP yesterday, however, the MRCP indicates mild dilatation of pancreatic duct. Abdominal ultrasound was also performed yesterday indicating fatty liver disease with gallstones. I have reviewed Dr. Rodriguez's consult. OVERALL ASSESSMENT: This is a 62-year-old black female admitted with complaints of substernal chest pressure, found to have elevated transaminases. The patient is currently on antibiotics, which includes meropenem as per Dr. Rodriguez. There has been a decrease in transaminases since admission, the etiology of which is questionable. Given the abnormal magnetic retrograde cholangiopancreatography findings, I will ask the hospitalists to possibly consult Dr. Mack regarding possible endoscopic retrograde cholangiopancreatography evaluation for this particular patient. As of this point in time, we will continue on a same regimen. Hao Dixon DO, PhD ZORA
[2017-08-27] MEDS ORDERED: DAPTOmycin 500 mg Inj (Cubicin) IV SCH (20:00)
[2017-08-28] MEDS: oxyCODONE 30 mg Immediate Release Tab PO PRN ×3 (00:41→17:15)
--- NOTE | 2017-08-28 00:49 | PN ---
DATE: 08/27/2017 SUBJECTIVE: Patient is in bed, in no acute distress. Patient was seen earlier this morning. She is having fevers. PHYSICAL EXAMINATION: VITAL SIGNS: Temperature is 101.4, blood pressure 120/70, respiratory rate 20, heart rate of 81. HEENT: Unremarkable. NECK: Supple. LUNGS: Decreased breath sounds. HEART: Normal S1 and S2. ABDOMEN: There is tenderness in the right side of the abdomen. No rebound. No guarding. LABORATORY DATA: Laboratory examination reveals white count in the 11,500, hemoglobin of 9, platelets 174. BUN of 14, creatinine of 0.9. LFTs are noted to be elevated. Alkaline phosphatase is elevated. Urinalysis is noted. Serology is negative. Microbiology reveals positive blood cultures 2 bottles for coag-negative Staph by PNA FISH. Repeat blood cultures have been ordered. Patient's creatinine has improved to 0.9 from 1.5. She had renal insufficiency in the past. ASSESSMENT AND PLAN: This is a 62-year-old female who was seen early this morning in room 269, bed 2, with hypercoagulable state, protein C deficiency, history of right breast abscess, peripheral vascular disease, transient ischemic attack, dyslipidemia, hypertension, Parkinson's, chronic back pain, anemia, arthritis, admitted with fever, leukocytosis, LFT elevation, now with sepsis with gram-positive cocci bacteremia, chronic negative in 2 bottles. We will order to add daptomycin to the meropenem. Concern about biliary source of the fever if the coag-negative staphylococcus is contaminant. We must explain the persistent fever. Patient had an magnetic resonance cholangiopancreatography. Cholelithiasis with biliary dilatation is noted. No filling defect is noted. Patient also did have HIDA scan today, which is unremarkable. The cystic duct is patent. We will check on the repeat blood cultures and we will order an echocardiogram and initiate daptomycin, and will make further recommendations. We will also order a sedimentation rate, C-reactive protein, and procalcitonin. We will follow with you. Josh Rodriguez MD : 08/27/2017 20:00:11
[2017-08-28 08:07] LABS: HEMOGLOBIN 9.4 g/dL (12.0-16.0); MEAN CELL VOLUME 92.9 fl (80.0-105.0); MEAN CORPUSCULAR HEMOGLOBIN 30.5 pg (25.0-35.0); MEAN CORPUSCULAR HGB CONC 32.9 g/dl (31.0-37.0); MEAN PLATELET VOLUME 9.9 fl (7.0-11.0); RBC 3.08 10^6/uL (3.5-6.1); RED CELL DISTRIBUTION WIDTH 14.7 % (11.5-14.5); WHITE BLOOD COUNT 6.7 10^3/ul (4.5-11.0)
[2017-08-28 08:26] LABS: ALB/GLOB RATIO 1.1 (1.1-1.8); ALBUMIN 3.3 g/dL (3.0-4.8); ALT/SGPT 119 U/L (7-56); AST/SGOT 70 U/L (14-36); BLOOD UREA NITROGEN 11 mg/dL (7-21); CALCIUM 8.9 mg/dL (8.4-10.5); GFR AFRICAN-AMERICAN > 60; GFR NON-AFRICAN AMERICAN > 60
[2017-08-28 08:30] VITALS: RESP 20
[2017-08-28] MEDS: Pantoprazole 40 mg EC Tab PO SCH ×2 (10:32→18:25)
[2017-08-28] MEDS: Meropenem IV 1 gm in NS 50 ML IVPB SCH ×2 (10:33→22:23)
[2017-08-28] MEDS: Sodium Chloride 0.9% 1,000 ML IV SCH (10:35)
--- NOTE | 2017-08-28 11:40 | PN ---
DATE: SUBJECTIVE: I reviewed the clinical course of Ms. Rainey with the nursing staff this morning. According to the nursing staff, after eating a strange type of meat, the patient vomited a couple of times. Also, had one episode of stool incontinence. There is no bleeding or hematemesis noted. The patient also denies any abdominal pain. Reviewed the note of Dr. Rodriguez, which she indicates at the current time point, the patient has sepsis with Gram-positive bacteremia. Medications have been changed. Test today include a HIDA scan which is unremarkable. The cystic duct is patent. The abdominopelvic CT scan was performed yesterday, which indicates an infiltrate in the lingular segment of the upper lobe. There is no acute intra-abdominal findings. LABORATORY DATA: Indicate a very mild drop in the H and H over the last couple of days. The patient's transaminases have been rapidly improving with values as of yesterday including AST/ALT ratio of 134/186 with alkaline phosphatase of 128, now that the LDH is also decreased. I think the current therapeutic regimen is adequate. The house staff and Dr. Rodriguez will be evaluating the patient later on this morning. Hao Dixon DO, PhD MTDYared
[2017-08-28] MEDS: Albuterol-Ipratrop 3 mg / 0.5 (3 ml) UD IH PRN (12:58)
--- NOTE | 2017-08-28 13:07 | CP.PCM.PN ---
<Ho Díaz - Last Filed: 08/28/17 20:54> Subjective - Date & Time of Evaluation Date of Evaluation: 08/28/17 Time of Evaluation: 07:30 - Subjective Subjective: Ho Díaz DO PGY1 - IM Progress Note Patient seen and examined at bedside. Per nursing staff, patient had a fever yesterday evening. Patient does report subjective fever yesterday evening. She denies any nausea, vomiting, diarrhea, constipation, abdominal pain, chest pain. Shortness of breath is improving. Patient still has persistent cough, productive of brownish sputum. Objective - Vital Signs/Intake and Output Vital Signs (last 24 hours): Temp Pulse Resp BP Pulse Ox 97.8 F 75 20 130/72 100 08/28/17 08:29 08/28/17 08:29 08/28/17 08:29 08/28/17 10:32 08/28/17 08:29 Intake and Output: 08/28/17 08/28/17 06:59 18:59 Intake Total 240 Balance 240 - Medications Medications: Current Medications Albuterol/Ipratropium (Duoneb 3 Mg/0.5 Mg (3 Ml) Ud) 3 ml IH Q2H PRN PRN Reason: Shortness of Breath Last Admin: 08/28/17 12:58 Dose: 3 ml Apixaban (Eliquis) 5 mg PO BID ALEXI PRN Reason: Protocol Last Admin: 08/28/17 10:31 Dose: 5 mg Benzocaine/Menthol (Cepacol Sore Throat) 1 mercedes MT Q2H PRN PRN Reason: Sore Throat Last Admin: 08/26/17 06:25 Dose: 1 mercedes Benzonatate (Tessalon Perles) 100 mg PO TID PRN PRN Reason: cough Last Admin: 08/28/17 12:31 Dose: 100 mg Ergocalciferol (Drisdol 50,000 Intl Units Cap) 1 cap PO Q7D ALEXI Gabapentin (Neurontin) 400 mg PO TID ALEXI PRN Reason: Protocol Last Admin: 08/28/17 10:31 Dose: 400 mg Sodium Chloride (Sodium Chloride 0.9%) 1,000 mls @ 125 mls/hr IV .Q8H ALEXI Last Admin: 08/28/17 10:35 Dose: 125 mls/hr Meropenem (Merrem Iv 1 Gm Premix) 50 mls @ 100 mls/hr IVPB Q12 ALEXI PRN Reason: Protocol Stop: 09/04/17 17:16 Last Admin: 08/28/17 10:33 Dose: 100 mls/hr Daptomycin 590 mg/ Sodium (Chloride) 100 mls @ 200 mls/hr IV Q24H [facility] Stop: 09/05/17 20:01 Last Admin: 08/27/17 21:56 Dose: 200 mls/hr Ibuprofen (Motrin Tab) 400 mg PO Q8 PRN PRN Reason: Fever >100.4 F Last Admin: 08/27/17 18:25 Dose: 400 mg Metoprolol Tartrate (Lopressor) 25 mg PO BID ALEXI Last Admin: 08/28/17 10:32 Dose: 25 mg Ondansetron HCl (Zofran Inj) 4 mg IVP Q4H PRN PRN Reason: Nausea/Vomiting Last Admin: 08/28/17 12:31 Dose: 4 mg Oxycodone HCl (Oxycodone Immediate Release Tab) 30 mg PO TID PRN PRN Reason: Pain, moderate (4-7) Last Admin: 08/28/17 08:25 Dose: 30 mg Pantoprazole Sodium (Protonix Ec Tab) 40 mg PO BID ALEXI Last Admin: 08/28/17 10:32 Dose: 40 mg Zolpidem Tartrate (Ambien) 5 mg PO HS PRN; Protocol PRN Reason: Insomnia - Labs Labs: 08/28/17 07:40 08/28/17 07:40 PT 12.6 SECONDS (9.4-12.5) H 08/25/17 21:05 INR 1.10 (0.93-1.08) H 08/25/17 21:05 APTT 36.0 Seconds (25.1-36.5) 08/25/17 21:05 - Constitutional Appears: Non-toxic, No Acute Distress, Chronically Ill - Head Exam Head Exam: ATRAUMATIC, NORMOCEPHALIC - Eye Exam Eye Exam: EOMI, Normal appearance, PERRL Pupil Exam: NORMAL ACCOMODATION - ENT Exam ENT Exam: Mucous Membranes Moist, Normal Exam - Neck Exam Neck Exam: Normal Inspection - Respiratory Exam Respiratory Exam: Clear to Ausculation Bilateral, NORMAL BREATHING PATTERN. absent: Decreased Breath Sounds, Rales, Rhonchi, Wheezes, Respiratory Distress, Stridor - Cardiovascular Exam Cardiovascular Exam: RRR, +S1, +S2 - GI/Abdominal Exam GI & Abdominal Exam: Soft, Normal Bowel Sounds. absent: Tenderness Additional comments: Keloids palpable on superficial exam; nontender - Extremities Exam Extremities Exam: Normal Inspection. 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 Plan: Sepsis - Likely 2/2 bacteremia (unknown source) vs HCAP - Patient febrile yesterday to 101.4, >24 hours after initiation of antibiotics - Afebrile this AM; leukocytosis trending down - Blood culture positive for coagulase negative staph in two bottles - Ordered repeat blood cultures - CT abd/pel showed infiltrate in lingular segment of left upper lobe - Continue Merrem and Dapto per ID - Echo ordered per ID to r/o subacute bacterial endocarditis - Unlikely cholecytitis/cholangitis considering lack of abdominal pain and improving transaminitis - ID on consult; appreciate recs Transaminitis - LFTs downtrending - abd US showed prominent liver (17.6 cm), Cholelithiasis. Common bile duct is prominent measuring up to 1.1 cm - MRCP showed cholelithiasis, biliary dilatation, no obstruction; HIDA scan normal; no intervention per GI - May have passed a gallstone; patient will require outpatient evaluation for elective cholecystectomy for cholelithiasis - GI on consult; appreciate recs Anemia - H&H trended down slightly; likely hemodilutional - Hemodynamically stable; No active bleeding - Cont to monitor JOSEFINA - Resolved HTN - BP well controlled - Continue Metoprolol - Continue to hold Cozaar; BP stable, consider restarting at low dose for renal protection if BP remains stable H/o A-fib - Rate controlled - Continue Eliquis for anticoagulation - Continue Metoprolol for rate control H/o DVT - Eliquis GI/DVT PPx - Protonix - Eliquis <Nik Benz - Last Filed: 08/29/17 07:33> Objective - Vital Signs/Intake and Output Vital Signs (last 24 hours): Temp Pulse Resp BP Pulse Ox 98.7 F 77 20 130/80 100 08/28/17 14:00 08/28/17 14:00 08/28/17 14:00 08/28/17 17:10 08/28/17 15:02 Intake and Output: 08/29/17 08/29/17 06:59 18:59 Intake Total 1380 200 Balance 1380 200 - Medications Medications: Current Medications Albuterol/Ipratropium (Duoneb 3 Mg/0.5 Mg (3 Ml) Ud) 3 ml IH Q2H PRN PRN Reason: Shortness of Breath Last Admin: 08/28/17 12:58 Dose: 3 ml Apixaban (Eliquis) 5 mg PO BID ALEXI PRN Reason: Protocol Last Admin: 08/28/17 17:10 Dose: 5 mg Benzocaine/Menthol (Cepacol Sore Throat) 1 mercedes MT Q2H PRN PRN Reason: Sore Throat Last Admin: 08/26/17 06:25 Dose: 1 mercedes Benzonatate (Tessalon Perles) 100 mg PO TID PRN PRN Reason: cough Last Admin: 08/28/17 12:31 Dose: 100 mg Ergocalciferol (Drisdol 50,000 Intl Units Cap) 1 cap PO Q7D ALEXI Gabapentin (Neurontin) 400 mg PO TID ALEXI PRN Reason: Protocol Last Admin: 08/28/17 17:10 Dose: 400 mg Sodium Chloride (Sodium Chloride 0.9%) 1,000 mls @ 125 mls/hr IV .Q8H ALEXI Last Admin: 08/28/17 10:35 Dose: 125 mls/hr Meropenem (Merrem Iv 1 Gm Premix) 50 mls @ 100 mls/hr IVPB Q12 ALEXI PRN Reason: Protocol Stop: 09/04/17 17:16 Last Admin: 08/28/17 22:23 Dose: 100 mls/hr Daptomycin 590 mg/ Sodium (Chloride) 100 mls @ 200 mls/hr IV Q24H ALEXI Stop: 09/05/17 20:01 Last Admin: 08/28/17 21:00 Dose: 200 mls/hr Ibuprofen (Motrin Tab) 400 mg PO Q8 PRN PRN Reason: Fever >100.4 F Last Admin: 08/27/17 18:25 Dose: 400 mg Metoprolol Tartrate (Lopressor) 25 mg PO BID [facility] Last Admin: 08/28/17 17:10 Dose: 25 mg Ondansetron HCl (Zofran Inj) 4 mg IVP Q4H PRN PRN Reason: Nausea/Vomiting Last Admin: 08/28/17 12:31 Dose: 4 mg Oxycodone HCl (Oxycodone Immediate Release Tab) 30 mg PO TID PRN PRN Reason: Pain, moderate (4-7) Last Admin: 08/29/17 02:43 Dose: 30 mg Pantoprazole Sodium (Protonix Ec Tab) 40 mg PO BID [facility] Last Admin: 08/28/17 18:25 Dose: 40 mg Zolpidem Tartrate (Ambien) 5 mg PO HS PRN; Protocol PRN Reason: Insomnia Last Admin: 08/28/17 22:23 Dose: 5 mg - Labs Labs: 08/28/17 07:40 08/28/17 07:40 PT 12.6 SECONDS (9.4-12.5) H 08/25/17 21:05 INR 1.10 (0.93-1.08) H 08/25/17 21:05 APTT 36.0 Seconds (25.1-36.5) 08/25/17 21:05 Attending/Attestation - Attestation I have personally seen and examined this patient.: Yes I have fully participated in the care of the patient.: Yes I have reviewed all pertinent clinical information, including history, physical exam and plan: Yes Notes (Text): 08/28/17 62 year old female with past medical history of protein C deficiency, hypertension, atrial fibrillation, DVT on anticoagulation s/p IVC filter and history of warfarin induced necrosis who presented with sepsis, shortness of breath and elevated LFTs. CXR was negative. CT scan showed left lobe lingular infiltrate. Procalcitonin is elevated and leukocytosis is improving. BCx x 2 was positive for coag negative staph. Repeat BCx is negative to date ( x24 hrs). Continue with iv antibiotics as per ID. Echocardiogram was ordered as well. Transaminitis most likely multifactorial secondary to recent antibiotics; also cholelithiasis reviewed on imaging. MRCP findings discussed with ID and GI. HIDA scan was ordered which was negative. Patient denies abdominal pain. LFTs continue to be trending down. Hepatitis panel was negative. She initially had JOSEFINA which improved with IVF. Will continue to monitor her renal function. She is on eliquis for afib. Nik Benz MD Hospitalist.
--- NOTE | 2017-08-28 20:00 | CARD ---
APPROVED REPORT EXAM: Two-dimensional and M-mode echocardiogram with Doppler and color Doppler. INDICATION Infection:Rule out subacute bacterial endocarditis 2D DIMENSIONS Left Atrium (2D)4.1 (1.6-4.0cm)IVSd1.3 (0.7-1.1cm) LVDd4.2 (3.9-5.9cm)PWd1.3 (0.7-1.1cm) LVDs2.7 (2.5-4.0cm)FS (%) 34.7 % LVEF (%)64.3 (>50%) M-Mode DIMENSIONS Aortic Root2.40 (2.2-3.7cm)Aortic Cusp Exc.1.70 (1.5-2.0cm) Aortic Valve AoV Peak Yjnrutjw829.0cm/Juliana Peak GR.17mmHg Mitral Valve MV E Estrmqch960.0cm/sMV A Xgngaxit46.1cm/sE/A ratio1.2 TDI E/Lateral E'0.0E/Medial E'0.0 Tricuspid Valve TR Peak [id number]/sRAP [id number] Peak Gr.42mmHg [id number] LEFT VENTRICLE The left ventricle is normal size. There is mild concentric left ventricular hypertrophy. The left ventricular function is normal. The left ventricular ejection fraction is within the normal range. There is normal LV segmental wall motion. The left ventricular diastolic function is normal. RIGHT VENTRICLE The right ventricle is normal size. There is normal right ventricular wall thickness. The right ventricular systolic function is normal. ATRIA The left atrium is borderline dilated. The right atrium size is normal. AORTIC VALVE The aortic valve is mildly thickened. No aortic regurgitation is present. There is no aortic valvular stenosis. MITRAL VALVE The mitral valve is mildly thickened. There is no mitral valve regurgitation noted. TRICUSPID VALVE The tricuspid valve is not well visualized There is moderate pulmonary hypertension. GREAT VESSELS The aortic root is normal in size. The IVC is normal in size and collapses >50% with inspiration. <Conclusion> Thickened Aortic cusps and mitral leaflets, No vegitation seen The left ventricular function is normal. The left ventricular ejection fraction is within the normal range. There is moderate pulmonary hypertension.
--- NOTE | 2017-08-28 23:28 | CP.PCM.PN ---
Subjective - Date & Time of Evaluation Date of Evaluation: 08/28/17 Time of Evaluation: 10:50 - Subjective Subjective: No abdominal pain, no fevers, no diarrhea. Objective - Vital Signs/Intake and Output Vital Signs (last 24 hours): Temp Pulse Resp BP Pulse Ox 97.8 F 75 20 126/71 100 08/28/17 08:29 08/28/17 08:29 08/28/17 08:29 08/28/17 08:29 08/28/17 08:29 Intake and Output: 08/28/17 08/28/17 06:59 18:59 Intake Total 240 Balance 240 - Medications Medications: Current Medications Albuterol/Ipratropium (Duoneb 3 Mg/0.5 Mg (3 Ml) Ud) 3 ml IH Q2H PRN PRN Reason: Shortness of Breath Apixaban (Eliquis) 5 mg PO BID ALEXI PRN Reason: Protocol Last Admin: 08/27/17 18:25 Dose: 5 mg Benzocaine/Menthol (Cepacol Sore Throat) 1 mercedes MT Q2H PRN PRN Reason: Sore Throat Last Admin: 08/26/17 06:25 Dose: 1 mercedes Benzonatate (Tessalon Perles) 100 mg PO TID PRN PRN Reason: cough Last Admin: 08/26/17 12:02 Dose: 100 mg Ergocalciferol (Drisdol 50,000 Intl Units Cap) 1 cap PO Q7D [facility]LEXI Gabapentin (Neurontin) 400 mg PO TID ALEXI PRN Reason: Protocol Last Admin: 08/27/17 18:25 Dose: 400 mg Sodium Chloride (Sodium Chloride 0.9%) 1,000 mls @ 125 mls/hr IV .Q8H [facility] Last Admin: 08/27/17 15:42 Dose: Not Given Meropenem (Merrem Iv 1 Gm Premix) 50 mls @ 100 mls/hr IVPB Q12 ALEXI PRN Reason: Protocol Stop: 09/04/17 17:16 Last Admin: 08/27/17 21:00 Dose: 100 mls/hr Daptomycin 590 mg/ Sodium (Chloride) 100 mls @ 200 mls/hr IV Q24H [facility] Stop: 09/05/17 20:01 Last Admin: 08/27/17 21:56 Dose: 200 mls/hr Ibuprofen (Motrin Tab) 400 mg PO Q8 PRN PRN Reason: Fever >100.4 F Last Admin: 08/27/17 18:25 Dose: 400 mg Metoprolol Tartrate (Lopressor) 25 mg PO BID [facility] Last Admin: 08/27/17 18:25 Dose: 25 mg Ondansetron HCl (Zofran Inj) 4 mg IVP Q4H PRN PRN Reason: Nausea/Vomiting Last Admin: 08/27/17 21:24 Dose: 4 mg Oxycodone HCl (Oxycodone Immediate Release Tab) 30 mg PO TID PRN PRN Reason: Pain, moderate (4-7) Last Admin: 08/28/17 08:25 Dose: 30 mg Pantoprazole Sodium (Protonix Ec Tab) 40 mg PO BID [facility] Last Admin: 08/27/17 18:25 Dose: 40 mg Zolpidem Tartrate (Ambien) 5 mg PO HS PRN; Protocol PRN Reason: Insomnia - Labs Labs: 08/28/17 07:40 08/28/17 07:40 PT 12.6 SECONDS (9.4-12.5) H 08/25/17 21:05 INR 1.10 (0.93-1.08) H 08/25/17 21:05 APTT 36.0 Seconds (25.1-36.5) 08/25/17 21:05 - Constitutional Appears: Chronically Ill - Head Exam Head Exam: NORMAL INSPECTION - ENT Exam ENT Exam: Mucous Membranes Moist - Neck Exam Neck Exam: absent: Meningismus - Respiratory Exam Respiratory Exam: Decreased Breath Sounds - Cardiovascular Exam Cardiovascular Exam: +S1, +S2 - GI/Abdominal Exam GI & Abdominal Exam: Soft. absent: Tenderness Assessment and Plan - Assessment and Plan (Free Text) Plan: Assessment consider sepsis from left lower lobe HCAP, with coagulase negative staph bacteremia, concerned about intra-abdominal infection but HIDA scan is negative history of respiratory tract infection with MSSA and ESBL E. 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 faecalis and Klebsiella history of acute rhabdomyolysis HTN history of transient ischemic attack dyslipidemia hypercoagulable state with Protein C deficiency chronic back pain S/P hysterectomy S/P gastric bypass surgery Plan continue Merrem and Daptomycin - follow up repeat blood cx which are negative so far; reviewed CT A/P showing left lower lobe infiltrate will monitor clinically
[2017-08-29] MEDS: oxyCODONE 30 mg Immediate Release Tab PO PRN ×3 (02:43→19:52)
[2017-08-29 08:03] LABS: HEMOGLOBIN 8.5 g/dL (12.0-16.0); MEAN CELL VOLUME 92.1 fl (80.0-105.0); MEAN CORPUSCULAR HEMOGLOBIN 30.4 pg (25.0-35.0); MEAN CORPUSCULAR HGB CONC 32.9 g/dl (31.0-37.0); MEAN PLATELET VOLUME 9.6 fl (7.0-11.0); RBC 2.8 10^6/uL (3.5-6.1); RED CELL DISTRIBUTION WIDTH 14.5 % (11.5-14.5); WHITE BLOOD COUNT 5.1 10^3/ul (4.5-11.0)
[2017-08-29 08:13] LABS: ALT/SGPT 92 U/L (7-56); AST/SGOT 47 U/L (14-36); BLOOD UREA NITROGEN 7 mg/dL (7-21); CALCIUM 8.9 mg/dL (8.4-10.5); GFR AFRICAN-AMERICAN > 60; GFR NON-AFRICAN AMERICAN > 60
[2017-08-29] MEDS: Sodium Chloride 0.9% 1,000 ML IV SCH ×2 (09:52→19:28)
[2017-08-29] MEDS: Pantoprazole 40 mg EC Tab PO SCH ×2 (09:53→17:17)
[2017-08-29] MEDS: Meropenem IV 1 gm in NS 50 ML IVPB SCH ×2 (09:53→21:15)
--- NOTE | 2017-08-29 17:46 | CP.PCM.PN ---
<Ho Díaz - Last Filed: 08/29/17 17:40> Subjective - Date & Time of Evaluation Date of Evaluation: 08/29/17 Time of Evaluation: 07:30 - Subjective Subjective: Ho Díaz DO PGY1 - IM Progress Note Patient seen and examined at bedside. Per nursing staff, no acute events overnight. Patient reports poor sleep overnight; complaining of fatigue. She denies any new fever or chills. She denies any nausea, vomiting, diarrhea, constipation, abdominal pain, chest pain. Shortness of breath is improving. Patient still has persistent cough, productive of brownish sputum. Objective - Vital Signs/Intake and Output Vital Signs (last 24 hours): Temp Pulse Resp BP Pulse Ox 97.8 F 79 20 142/89 100 08/29/17 14:00 08/29/17 17:17 08/29/17 14:00 08/29/17 17:17 08/29/17 14:00 Intake and Output: 08/29/17 08/29/17 06:59 18:59 Intake Total 1380 1100 Balance 1380 1100 - Medications Medications: Current Medications Albuterol/Ipratropium (Duoneb 3 Mg/0.5 Mg (3 Ml) Ud) 3 ml IH Q2H PRN PRN Reason: Shortness of Breath Last Admin: 08/28/17 12:58 Dose: 3 ml Apixaban (Eliquis) 5 mg PO BID ALEXI PRN Reason: Protocol Last Admin: 08/29/17 17:17 Dose: 5 mg Benzocaine/Menthol (Cepacol Sore Throat) 1 mercedes MT Q2H PRN PRN Reason: Sore Throat Last Admin: 08/26/17 06:25 Dose: 1 mercedes Benzonatate (Tessalon Perles) 100 mg PO TID PRN PRN Reason: cough Last Admin: 08/28/17 12:31 Dose: 100 mg Ergocalciferol (Drisdol 50,000 Intl Units Cap) 1 cap PO Q7D [facility] Gabapentin (Neurontin) 400 mg PO TID ALEXI PRN Reason: Protocol Last Admin: 08/29/17 17:17 Dose: 400 mg Sodium Chloride (Sodium Chloride 0.9%) 1,000 mls @ 125 mls/hr IV .Q8H [facility] Last Admin: 08/29/17 09:52 Dose: 125 mls/hr Meropenem (Merrem Iv 1 Gm Premix) 50 mls @ 100 mls/hr IVPB Q12 ALEXI PRN Reason: Protocol Stop: 09/04/17 17:16 Last Admin: 08/29/17 09:53 Dose: 100 mls/hr Daptomycin 590 mg/ Sodium (Chloride) 100 mls @ 200 mls/hr IV Q24H [facility] Stop: 09/05/17 20:01 Last Admin: 08/28/17 21:00 Dose: 200 mls/hr Ibuprofen (Motrin Tab) 400 mg PO Q8 PRN PRN Reason: Fever >100.4 F Last Admin: 08/27/17 18:25 Dose: 400 mg Metoprolol Tartrate (Lopressor) 25 mg PO BID [facility] Last Admin: 08/29/17 17:17 Dose: 25 mg Ondansetron HCl (Zofran Inj) 4 mg IVP Q4H PRN PRN Reason: Nausea/Vomiting Last Admin: 08/28/17 12:31 Dose: 4 mg Oxycodone HCl (Oxycodone Immediate Release Tab) 30 mg PO TID PRN PRN Reason: Pain, moderate (4-7) Last Admin: 08/29/17 11:03 Dose: 30 mg Pantoprazole Sodium (Protonix Ec Tab) 40 mg PO BID [facility] Last Admin: 08/29/17 17:17 Dose: 40 mg Zolpidem Tartrate (Ambien) 5 mg PO HS PRN; Protocol PRN Reason: Insomnia Last Admin: 08/28/17 22:23 Dose: 5 mg - Labs Labs: 08/29/17 07:00 08/29/17 07:00 PT 12.6 SECONDS (9.4-12.5) H 08/25/17 21:05 INR 1.10 (0.93-1.08) H 08/25/17 21:05 APTT 36.0 Seconds (25.1-36.5) 08/25/17 21:05 - Additional Findings Additional findings: - Constitutional Appears: Non-toxic, No Acute Distress, Chronically Ill - Head Exam Head Exam: ATRAUMATIC, NORMOCEPHALIC - Eye Exam Eye Exam: EOMI, Normal appearance, PERRL Pupil Exam: NORMAL ACCOMODATION - ENT Exam ENT Exam: Mucous Membranes Moist, Normal Exam - Neck Exam Neck Exam: Normal Inspection - Respiratory Exam Respiratory Exam: Clear to Ausculation Bilateral, NORMAL BREATHING PATTERN. absent: Decreased Breath Sounds, Rales, Rhonchi, Wheezes, Respiratory Distress, Stridor - Cardiovascular Exam Cardiovascular Exam: RRR, +S1, +S2 - GI/Abdominal Exam GI & Abdominal Exam: Soft, Normal Bowel Sounds. absent: Tenderness Additional comments: Keloids palpable on superficial exam; nontender - Extremities Exam Extremities Exam: Normal Inspection. 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 Plan: Sepsis - Likely 2/2 bacteremia vs HCAP - Patient has been afebfrile for approximately 36 hours - Leukocytosis trending down - Blood culture positive for coagulase negative staph in two bottles; pending sensitivity - Repeat blood culture negative after 24 hours - CT abd/pel showed infiltrate in lingular segment of left upper lobe - Continue Merrem and Dapto per ID - Echo done; no vegetation seen - ID on consult; appreciate recs Transaminitis - LFTs downtrending - May have passed a gallstone; patient will require outpatient evaluation for elective cholecystectomy for cholelithiasis - GI on consult; appreciate recs Anemia - H&H continues to trend down; likely hemodilutional - Normoctic, normochromic; iron studies done 08/12/17 show normal serum iron, low TIBC, elevated ferritin - Likely anemia of chronic disease; acute on chronic - Hemodynamically stable; No active bleeding - Cont to monitor HTN - BP well controlled - Continue Metoprolol - Continue to hold Cozaar; BP stable, consider restarting at low dose for renal protection if BP remains stable H/o A-fib - Rate controlled - Continue Eliquis for anticoagulation - Continue Metoprolol for rate control H/o DVT - Eliquis GI/DVT PPx - Protonix - Eliquis Case discussed and reviewed with attending Dr. Benz <Nik Benz - Last Filed: 08/30/17 07:41> Objective - Vital Signs/Intake and Output Vital Signs (last 24 hours): Temp Pulse Resp BP Pulse Ox 97.8 F 79 20 142/89 100 08/29/17 14:00 08/29/17 17:17 08/29/17 14:00 08/29/17 17:17 08/29/17 14:00 Intake and Output: 08/30/17 08/30/17 06:59 18:59 Intake Total 1140 Balance 1140 - Medications Medications: Current Medications Albuterol/Ipratropium (Duoneb 3 Mg/0.5 Mg (3 Ml) Ud) 3 ml IH Q2H PRN PRN Reason: Shortness of Breath Last Admin: 08/28/17 12:58 Dose: 3 ml Apixaban (Eliquis) 5 mg PO BID [facility]LEXI PRN Reason: Protocol Last Admin: 08/29/17 17:17 Dose: 5 mg Benzocaine/Menthol (Cepacol Sore Throat) 1 mercedes MT Q2H PRN PRN Reason: Sore Throat Last Admin: 08/26/17 06:25 Dose: 1 mercedes Benzonatate (Tessalon Perles) 100 mg PO TID PRN PRN Reason: cough Last Admin: 08/28/17 12:31 Dose: 100 mg Ergocalciferol (Drisdol 50,000 Intl Units Cap) 1 cap PO Q7D [facility]LEXI Gabapentin (Neurontin) 400 mg PO TID ALEXI PRN Reason: Protocol Last Admin: 08/29/17 17:17 Dose: 400 mg Meropenem (Merrem Iv 1 Gm Premix) 50 mls @ 100 mls/hr IVPB Q12 ALEXI PRN Reason: Protocol Stop: 09/04/17 17:16 Last Admin: 08/29/17 21:15 Dose: 100 mls/hr Daptomycin 590 mg/ Sodium (Chloride) 100 mls @ 200 mls/hr IV Q24H [facility] Stop: 09/05/17 20:01 Last Admin: 08/29/17 20:30 Dose: 200 mls/hr Ibuprofen (Motrin Tab) 400 mg PO Q8 PRN PRN Reason: Fever >100.4 F Last Admin: 08/29/17 21:19 Dose: 400 mg Metoprolol Tartrate (Lopressor) 25 mg PO BID [facility]LEXI Last Admin: 08/29/17 17:17 Dose: 25 mg Ondansetron HCl (Zofran Inj) 4 mg IVP Q4H PRN PRN Reason: Nausea/Vomiting Last Admin: 08/28/17 12:31 Dose: 4 mg Oxycodone HCl (Oxycodone Immediate Release Tab) 30 mg PO TID PRN PRN Reason: Pain, moderate (4-7) Last Admin: 08/30/17 02:30 Dose: 30 mg Pantoprazole Sodium (Protonix Ec Tab) 40 mg PO BID [facility]LEXI Last Admin: 08/29/17 17:17 Dose: 40 mg Zolpidem Tartrate (Ambien) 5 mg PO HS PRN; Protocol PRN Reason: Insomnia Last Admin: 08/30/17 00:10 Dose: 5 mg - Labs Labs: 08/29/17 07:00 08/29/17 07:00 PT 12.6 SECONDS (9.4-12.5) H 08/25/17 21:05 INR 1.10 (0.93-1.08) H 08/25/17 21:05 APTT 36.0 Seconds (25.1-36.5) 08/25/17 21:05 Attending/Attestation - Attestation I have personally seen and examined this patient.: Yes I have fully participated in the care of the patient.: Yes I have reviewed all pertinent clinical information, including history, physical exam and plan: Yes Notes (Text): 08/29/17 62 year old female with past medical history of protein C deficiency, hypertension, atrial fibrillation, DVT on anticoagulation s/p IVC filter and history of warfarin induced necrosis who presented with sepsis, shortness of breath and elevated LFTs. CXR was negative. CT scan showed left lobe lingular infiltrate. She had elevated procalcitonin and WBC, both which are improving. BCx x 2 was positive for coag negative staph. Repeat BCx is negative to date ( x48 hrs). Continue with iv antibiotics as per ID. Will discuss duration of antibiotics needed with ID. Echocardiogram was negative for vegetations. Transaminitis most likely multifactorial secondary to recent antibiotics; also cholelithiasis reviewed on imaging. MRCP findings discussed with ID and GI. HIDA scan was negative. Patient denies abdominal pain. LFTs continue to be trending down. Hepatitis panel was negative. She initially had JOSEFINA which improved with IVF. Will continue to monitor her renal function. She is on eliquis for afib. Nik Benz MD Hospitalist.
[2017-08-30] MEDS: oxyCODONE 30 mg Immediate Release Tab PO PRN ×3 (02:30→16:27)
--- NOTE | 2017-08-30 03:49 | PN ---
DATE: 08/29/2017 SUBJECTIVE: Patient is in bed, in no acute distress. Patient was seen this morning. No fevers and chills. PHYSICAL EXAMINATION: VITAL SIGNS: Temperature is 98, blood pressure is 102/50, respiratory rate of 16. HEENT: Unremarkable. NECK: Supple. LUNGS: Have decreased breath sounds. HEART: Normal S1, S2. ABDOMEN: Soft, nontender. LABORATORY DATA: Reveals a white count of 5.1, hemoglobin of 8, platelets of 187. Chemistries reveal a BUN of 7, creatinine of 0.6. LFTs are improving. Patient's bilirubin has been normal. Patient did have an elevated alk phos of up to 131 with an ALT of 356, which has also improved. Procalcitonin is 0.57. Microbiology reveals coag-negative Staphylococcus in the blood, repeat cultures are reported to be no growth. Currently, the patient is on meropenem and daptomycin. Sed rate of 35. C-reactive protein is greater than 15. Echo result read by Dr. Mak. No vegetations are seen. There is moderate pulmonary hypertension. No vegetations on the mitral valve or aortic valve are seen. ASSESSMENT AND PLAN: A 62-year-old female with sepsis with left lower quadrant healthcare-associated pneumonia, coag-negative Staphylococcus bacteremia, and HIDA scan is negative. Liver function test elevations are improving. Patient also had a CAT scan of the abdomen. infiltration seen on the CAT scan of the abdomen. Unremarkable gallbladder. Patient's is 393. We will follow closely with you. Josh Rodriguez MD
[2017-08-30] MEDS: Albuterol-Ipratrop 3 mg / 0.5 (3 ml) UD IH PRN ×3 (08:20→21:35)
[2017-08-30 08:30] LABS: ALBUMIN 2.8 g/dL (3.0-4.8); ALT/SGPT 78 U/L (7-56); AST/SGOT 45 U/L (14-36); BLOOD UREA NITROGEN 8 mg/dL (7-21); CALCIUM 9.2 mg/dL (8.4-10.5); GFR AFRICAN-AMERICAN > 60; GFR NON-AFRICAN AMERICAN > 60
[2017-08-30 08:33] LABS: BASO # 0.04 K/mm3 (0.0-2.0); BASO % 1.1 % (0.0-3.0); EOS # 0.2 (0.0-0.7); EOS % 5.8 % (1.5-5.0); GRAN # 1.3 (1.4-6.5); GRAN % 34.1 % (50.0-68.0); HEMOGLOBIN 8.9 g/dL (12.0-16.0); LYMPH # 1.8 (1.2-3.4); LYMPH % 46.1 % (22.0-35.0); MEAN CELL VOLUME 91.6 fl (80.0-105.0); MEAN CORPUSCULAR HEMOGLOBIN 29.9 pg (25.0-35.0); MEAN CORPUSCULAR HGB CONC 32.6 g/dl (31.0-37.0); MEAN PLATELET VOLUME 9.5 fl (7.0-11.0); MONO # 0.5 (0.1-0.6); MONO % 12.9 % (1.0-6.0); RBC 2.98 10^6/uL (3.5-6.1); WHITE BLOOD COUNT 3.8 10^3/ul (4.5-11.0)
[2017-08-30] MEDS: Meropenem IV 1 gm in NS 50 ML IVPB SCH ×2 (09:40→21:27)
[2017-08-30] MEDS: Pantoprazole 40 mg EC Tab PO SCH ×2 (09:40→17:06)
[2017-08-30] MEDS ORDERED: levoFLOXacin 500 MG TAB PO STA (15:13)
--- NOTE | 2017-08-30 19:03 | CP.PCM.PN ---
<Ho Díaz - Last Filed: 08/30/17 18:58> Subjective - Date & Time of Evaluation Date of Evaluation: 08/30/17 Time of Evaluation: 07:30 - Subjective Subjective: Ho Díaz DO PGY1 - IM Progress Note Patient seen and examined at bedside. Per nursing staff, no acute events overnight. Patient has been afebrile for 2 days. Patient was complaining of cough productive of brownish sputum, decreasing in frequency and intensity. Denies chest pain or shortness of breath. Patient was going to be discharged, and was administered the first dose of oral antibiotics, and then started to feel nauseous and vomited, and reported tinnitus. Discharge was canceled and she will remain for observation overnight. Objective - Vital Signs/Intake and Output Vital Signs (last 24 hours): Temp Pulse Resp BP Pulse Ox 98.1 F 86 20 142/84 99 08/30/17 14:00 08/30/17 17:06 08/30/17 14:00 08/30/17 17:06 08/30/17 14:00 Intake and Output: 08/30/17 08/30/17 06:59 18:59 Intake Total 1140 900 Balance 1140 900 - Medications Medications: Current Medications Albuterol/Ipratropium (Duoneb 3 Mg/0.5 Mg (3 Ml) Ud) 3 ml IH Q2H PRN PRN Reason: Shortness of Breath Last Admin: 08/30/17 14:30 Dose: 3 ml Apixaban (Eliquis) 5 mg PO BID ALEXI PRN Reason: Protocol Last Admin: 08/30/17 17:06 Dose: 5 mg Benzocaine/Menthol (Cepacol Sore Throat) 1 mercedes MT Q2H PRN PRN Reason: Sore Throat Last Admin: 08/26/17 06:25 Dose: 1 mercedes Benzonatate (Tessalon Perles) 100 mg PO TID PRN PRN Reason: cough Last Admin: 08/28/17 12:31 Dose: 100 mg Ergocalciferol (Drisdol 50,000 Intl Units Cap) 1 cap PO Q7D [facility]LEXI Gabapentin (Neurontin) 400 mg PO TID ALEXI PRN Reason: Protocol Last Admin: 08/30/17 17:06 Dose: 400 mg Meropenem (Merrem Iv 1 Gm Premix) 50 mls @ 100 mls/hr IVPB Q12 ALEXI PRN Reason: Protocol Stop: 09/04/17 17:16 Last Admin: 08/30/17 09:40 Dose: 100 mls/hr Daptomycin 590 mg/ Sodium (Chloride) 100 mls @ 200 mls/hr IV Q24H [facility] Stop: 09/05/17 20:01 Last Admin: 08/29/17 20:30 Dose: 200 mls/hr Ibuprofen (Motrin Tab) 400 mg PO Q8 PRN PRN Reason: Fever >100.4 F Last Admin: 08/30/17 12:21 Dose: 400 mg Metoprolol Tartrate (Lopressor) 25 mg PO BID [facility] Last Admin: 08/30/17 17:06 Dose: 25 mg Oxycodone HCl (Oxycodone Immediate Release Tab) 30 mg PO TID PRN PRN Reason: Pain, moderate (4-7) Last Admin: 08/30/17 16:27 Dose: 30 mg Pantoprazole Sodium (Protonix Ec Tab) 40 mg PO BID [facility] Last Admin: 08/30/17 17:06 Dose: 40 mg Zolpidem Tartrate (Ambien) 5 mg PO HS PRN; Protocol PRN Reason: Insomnia Last Admin: 08/30/17 00:10 Dose: 5 mg - Labs Labs: 08/30/17 07:00 08/30/17 07:00 PT 12.6 SECONDS (9.4-12.5) H 08/25/17 21:05 INR 1.10 (0.93-1.08) H 08/25/17 21:05 APTT 36.0 Seconds (25.1-36.5) 08/25/17 21:05 - Additional Findings Additional findings: - Constitutional Appears: Non-toxic, No Acute Distress, Chronically Ill - Head Exam Head Exam: ATRAUMATIC, NORMOCEPHALIC - Eye Exam Eye Exam: EOMI, Normal appearance, PERRL Pupil Exam: NORMAL ACCOMODATION - ENT Exam ENT Exam: Mucous Membranes Moist, Normal Exam - Neck Exam Neck Exam: Normal Inspection - Respiratory Exam Respiratory Exam: Clear to Ausculation Bilateral, NORMAL BREATHING PATTERN. absent: Decreased Breath Sounds, Rales, Rhonchi, Wheezes, Respiratory Distress, Stridor - Cardiovascular Exam Cardiovascular Exam: RRR, +S1, +S2 - GI/Abdominal Exam GI & Abdominal Exam: Soft, Normal Bowel Sounds. absent: Tenderness - Extremities Exam Extremities Exam: Normal Inspection. 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 Plan: Sepsis; SIRS resolved - Likely 2/2 bacteremia vs HCAP - Patient has been afebfrile for 2 days - Leukocytosis resolved - Blood culture positive for coagulase negative staph in two bottles; MDR; per ID, likely contaminant considering overall picture - Repeat blood culture negative after 48 hours - CT abd/pel showed infiltrate in lingular segment of left upper lobe - Continue Merrem and Dapto per ID; patient was going to be discharged on PO levaquin, but had adverse reaction to first dose with nausea, vomiting, and tinnitus - Echo done; no vegetation seen - ID on consult; appreciate recs Transaminitis - LFTs downtrending - May have passed a gallstone; patient will require outpatient evaluation for elective cholecystectomy for cholelithiasis - GI on consult; appreciate recs Anemia - H&H improved today; likely hemodilutional - Normoctic, normochromic; iron studies done 08/12/17 show normal serum iron, low TIBC, elevated ferritin - Likely anemia of chronic disease; acute on chronic - Hemodynamically stable; No active bleeding - Cont to monitor HTN - BP well controlled - Continue Metoprolol - Continue to hold Cozaar; BP stable, consider restarting at low dose for renal protection if BP remains stable H/o A-fib - Rate controlled - Continue Eliquis for anticoagulation - Continue Metoprolol for rate control H/o DVT - Eliquis GI/DVT PPx - Protonix - Eliquis Case discussed and reviewed with attending Dr. Benz <Nik Benz - Last Filed: 08/31/17 20:23> Objective - Vital Signs/Intake and Output Vital Signs (last 24 hours): Temp Pulse Resp BP Pulse Ox 97.4 F L 72 20 133/74 100 08/31/17 14:00 08/31/17 14:00 08/31/17 14:00 08/31/17 14:00 08/31/17 14:00 Intake and Output: 08/31/17 09/01/17 18:59 06:59 Intake Total 1440 Balance 1440 - Labs Labs: 08/31/17 06:00 08/31/17 06:00 PT 12.6 SECONDS (9.4-12.5) H 08/25/17 21:05 INR 1.10 (0.93-1.08) H 08/25/17 21:05 APTT 36.0 Seconds (25.1-36.5) 08/25/17 21:05 Attending/Attestation - Attestation I have personally seen and examined this patient.: Yes I have fully participated in the care of the patient.: Yes I have reviewed all pertinent clinical information, including history, physical exam and plan: Yes Notes (Text): 08/30/17 62 year old female with past medical history of protein C deficiency, hypertension, atrial fibrillation, DVT on anticoagulation s/p IVC filter and history of warfarin induced necrosis who presented with sepsis, shortness of breath and elevated LFTs. CXR was negative. CT scan showed left lobe lingular infiltrate. She had elevated procalcitonin and WBC, both which improved. BCx x 2 was positive for coag negative staph. Repeat BCx is negative to date ( x72 hrs). Continue with iv antibiotics as per ID. Can switch to po for d/c planning. Echocardiogram was negative for vegetations. Transaminitis most likely multifactorial secondary to recent antibiotics; also cholelithiasis reviewed on imaging. MRCP findings discussed with ID and GI. HIDA scan was negative. Patient denies abdominal pain. LFTs have improved. Hepatitis panel was negative. She initially had JOSEFINA which improved with IVF. Will continue to monitor her renal function. She is on eliquis for afib. Discussed with patient potential d/c planning today or tomorrow. Nik Benz MD Hospitalist.
--- NOTE | 2017-08-30 21:42 | PN ---
DATE: SUBJECTIVE: Patient is in bed, in no acute distress, nontoxic. PHYSICAL EXAMINATION: VITAL SIGNS: Temperature is 97, blood pressure is 129/70, respiratory rate of 18 and heart rate of 71. HEENT: Unremarkable. NECK: Supple. LUNGS: Have decreased breath sounds. HEART: Normal S1 and S2. ABDOMEN: Soft, nontender. LABORATORY DATA: Reveals a white count of 3.8, hemoglobin of 8, platelets of 206. Chemistries reveal a BUN of 8, creatinine of 0.6. LFTs are improving. Procalcitonin is 0.57. Microbiology is noted. Repeat blood cultures are negative; the initial ones had coag-negative Staphylococcus. ASSESSMENT AND PLAN: A 62-year-old female who is ALLERGIC TO PENICILLIN, was admitted with healthcare-associated pneumonia, coagulase-negative staphylococcus bacteremia. HIDA scan is negative and CAT scan is noted. Possibility of gallbladder as source is in the differential and now maybe able to switch to p.o. Levaquin 500 mg p.o. once daily upon discharge. We can discontinue the daptomycin and meropenem, and discharge on p.o. Levaquin upon discharge. We will follow closely with you. Josh Rodriguez MD
[2017-08-31] MEDS: oxyCODONE 30 mg Immediate Release Tab PO PRN ×3 (00:18→14:35)
[2017-08-31 06:29] LABS: BASO # 0.03 K/mm3 (0.0-2.0); BASO % 0.7 % (0.0-3.0); EOS # 0.3 (0.0-0.7); EOS % 6.4 % (1.5-5.0); GRAN # 1.56 (1.4-6.5); GRAN % 38.4 % (50.0-68.0); HEMOGLOBIN 8.5 g/dL (12.0-16.0); LYMPH # 1.8 (1.2-3.4); LYMPH % 43.7 % (22.0-35.0); MEAN CELL VOLUME 91.8 fl (80.0-105.0); MEAN CORPUSCULAR HEMOGLOBIN 30.1 pg (25.0-35.0); MEAN CORPUSCULAR HGB CONC 32.8 g/dl (31.0-37.0); MEAN PLATELET VOLUME 9.1 fl (7.0-11.0); MONO # 0.4 (0.1-0.6); MONO % 10.8 % (1.0-6.0); RBC 2.82 10^6/uL (3.5-6.1); RED CELL DISTRIBUTION WIDTH 14.4 % (11.5-14.5); WHITE BLOOD COUNT 4.1 10^3/ul (4.5-11.0)
[2017-08-31 07:19] LABS: ALBUMIN 2.8 g/dL (3.0-4.8); ALT/SGPT 64 U/L (7-56); AST/SGOT 30 U/L (14-36); BLOOD UREA NITROGEN 11 mg/dL (7-21); CALCIUM 9.1 mg/dL (8.4-10.5); GFR AFRICAN-AMERICAN > 60; GFR NON-AFRICAN AMERICAN > 60
[2017-08-31] MEDS: Pantoprazole 40 mg EC Tab PO SCH ×2 (09:16→17:56)
[2017-08-31] MEDS: Meropenem IV 1 gm in NS 50 ML IVPB SCH (09:16)
[2017-08-31] MEDS ORDERED: Home Med 1 UNIT PO ONE (13:15)
[2017-08-31] MEDS ORDERED: MOXIFLOXACIN 400 MG PO ONE ×2 (13:30→14:15)
--- NOTE | 2017-08-31 15:05 | CP.PCM.PN ---
Subjective - Date & Time of Evaluation Date of Evaluation: 08/31/17 Time of Evaluation: 09:40 - Subjective Subjective: Comfortable in bed but had an episode of vomiting after levaquin was given. No fevers. Objective - Vital Signs/Intake and Output Vital Signs (last 24 hours): Temp Pulse Resp BP Pulse Ox 98 F 78 20 110/64 98 08/31/17 08:14 08/31/17 08:14 08/31/17 08:14 08/31/17 09:15 08/31/17 12:42 Intake and Output: 08/31/17 08/31/17 06:59 18:59 Intake Total 1200 Balance 1200 - Medications Medications: Current Medications Albuterol/Ipratropium (Duoneb 3 Mg/0.5 Mg (3 Ml) Ud) 3 ml IH Q2H PRN PRN Reason: Shortness of Breath Last Admin: 08/30/17 21:35 Dose: 3 ml Apixaban (Eliquis) 5 mg PO BID ALEXI PRN Reason: Protocol Last Admin: 08/31/17 09:17 Dose: 5 mg Benzocaine/Menthol (Cepacol Sore Throat) 1 mercedes MT Q2H PRN PRN Reason: Sore Throat Last Admin: 08/26/17 06:25 Dose: 1 mercedes Benzonatate (Tessalon Perles) 100 mg PO TID PRN PRN Reason: cough Last Admin: 08/28/17 12:31 Dose: 100 mg Doxycycline Hyclate (Doryx) 100 mg PO Q12 ALEXI PRN Reason: Protocol Last Admin: 08/31/17 14:31 Dose: 100 mg Ergocalciferol (Drisdol 50,000 Intl Units Cap) 1 cap PO Q7D LAEXI Gabapentin (Neurontin) 400 mg PO TID ALEXI PRN Reason: Protocol Last Admin: 08/31/17 14:32 Dose: 400 mg Meropenem (Merrem Iv 1 Gm Premix) 50 mls @ 100 mls/hr IVPB Q12 ALEXI PRN Reason: Protocol Stop: 09/04/17 17:16 Last Admin: 08/31/17 09:16 Dose: 100 mls/hr Daptomycin 590 mg/ Sodium (Chloride) 100 mls @ 200 mls/hr IV Q24H ALEXI Stop: 09/05/17 20:01 Last Admin: 08/30/17 22:28 Dose: 200 mls/hr Ibuprofen (Motrin Tab) 400 mg PO Q8 PRN PRN Reason: Fever >100.4 F Last Admin: 08/30/17 21:31 Dose: 400 mg Metoprolol Tartrate (Lopressor) 25 mg PO BID [facility] Last Admin: 08/31/17 09:15 Dose: 25 mg Oxycodone HCl (Oxycodone Immediate Release Tab) 30 mg PO TID PRN PRN Reason: Pain, moderate (4-7) Last Admin: 08/31/17 14:35 Dose: 30 mg Pantoprazole Sodium (Protonix Ec Tab) 40 mg PO BID [facility] Last Admin: 08/31/17 09:16 Dose: 40 mg Zolpidem Tartrate (Ambien) 5 mg PO HS PRN; Protocol PRN Reason: Insomnia Last Admin: 08/30/17 21:31 Dose: 5 mg - Labs Labs: 08/31/17 06:00 08/31/17 06:00 PT 12.6 SECONDS (9.4-12.5) H 08/25/17 21:05 INR 1.10 (0.93-1.08) H 08/25/17 21:05 APTT 36.0 Seconds (25.1-36.5) 08/25/17 21:05 - Constitutional Appears: Non-toxic, Chronically Ill - Head Exam Head Exam: NORMAL INSPECTION - Respiratory Exam Respiratory Exam: Decreased Breath Sounds - Cardiovascular Exam Cardiovascular Exam: +S1, +S2 - GI/Abdominal Exam GI & Abdominal Exam: Soft. absent: Tenderness Assessment and Plan - Assessment and Plan (Free Text) Plan: Assessment sepsis from left lower lobe HCAP, with coagulase negative staph bacteremia, concerned about intra-abdominal infection but HIDA scan is negative history of respiratory tract infection with MSSA and ESBL E. 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 faecalis and Klebsiella history of acute rhabdomyolysis HTN history of transient ischemic attack dyslipidemia hypercoagulable state with Protein C deficiency chronic back pain S/P hysterectomy S/P gastric bypass surgery Plan on Merrem and Daptomycin day 7 - had some nausea/vomiting with Levaquin, may try Avelox with Doxycycline to complete 3 days of therapy; QTc is 393 ms discussed with medical team to try first if she tolerates Avelox before discharge
[2017-08-31 16:54] VITALS: BP 133/74; PULSE 72; TEMP 97.4; O2SAT 100
--- NOTE | 2017-08-31 20:31 | CP.PCM.DIS ---
Provider - Provider Date of Admission: 08/25/17 23:16 Attending physician: Laura Conley MD Primary care physician: Ketan Moe DO Consults: ID: Shamir Time Spent in preparation of Discharge (in minutes): 65 Diagnosis - Discharge Diagnosis (1) Pneumonia Status: Acute (2) Sepsis Status: Acute (3) Anemia Status: Acute Hospital Course - Lab Results Lab Results: Micro Results 08/27/17 15:50 Blood Blood Culture - Preliminary NO GROWTH AFTER 4 DAYS 08/27/17 15:50 Blood Blood Culture - Preliminary NO GROWTH AFTER 4 DAYS 08/29/17 19:24 Sputum Gram Stain - Final 08/26/17 01:45 Throat Group A Strep Throat Culture - Final NO BETA STREP GROUP A ISOLATED. Most Recent Lab Values WBC 4.1 10^3/ul (4.5-11.0) L 08/31/17 06:00 RBC 2.82 10^6/uL (3.5-6.1) L 08/31/17 06:00 Hgb 8.5 g/dL (12.0-16.0) L 08/31/17 06:00 Hct 25.9 % (36.0-48.0) L 08/31/17 06:00 MCV 91.8 fl (80.0-105.0) 08/31/17 06:00 MCH 30.1 pg (25.0-35.0) 08/31/17 06:00 MCHC 32.8 g/dl (31.0-37.0) 08/31/17 06:00 RDW 14.4 % (11.5-14.5) 08/31/17 06:00 Plt Count 208 10^3/uL (120.0-450.0) 08/31/17 06:00 MPV 9.1 fl (7.0-11.0) 08/31/17 06:00 Gran % 38.4 % (50.0-68.0) L 08/31/17 06:00 Lymph % (Auto) 43.7 % (22.0-35.0) H 08/31/17 06:00 Fisher % (Auto) 10.8 % (1.0-6.0) H 08/31/17 06:00 Eos % (Auto) 6.4 % (1.5-5.0) H 08/31/17 06:00 Baso % (Auto) 0.7 % (0.0-3.0) 08/31/17 06:00 Gran # 1.56 (1.4-6.5) 08/31/17 06:00 Lymph # (Auto) 1.8 (1.2-3.4) 08/31/17 06:00 Fisher # (Auto) 0.4 (0.1-0.6) 08/31/17 06:00 Eos # (Auto) 0.3 (0.0-0.7) 08/31/17 06:00 Baso # (Auto) 0.03 K/mm3 (0.0-2.0) 08/31/17 06:00 ESR 35 mm/hr (0.0-20.0) H 08/28/17 07:40 PT 12.6 SECONDS (9.4-12.5) H 08/25/17 21:05 INR 1.10 (0.93-1.08) H 08/25/17 21:05 APTT 36.0 Seconds (25.1-36.5) 08/25/17 21:05 pO2 121 mm/Hg (30-55) H 08/26/17 02:25 VBG pH 7.30 (7.32-7.43) L 08/26/17 02:25 VBG pCO2 41.0 (40-60) 08/26/17 02:25 VBG HCO3 20.2 mmol/l (21-28) L 08/26/17 02:25 VBG Total CO2 21.5 mmol.L (22-28) L 08/26/17 02:25 VBG O2 Sat (Calc) 98.7 % (40-65) H 08/26/17 02:25 VBG Base Excess -5.9 mmol/L (0.0-2.0) L 08/26/17 02:25 VBG Potassium 3.6 mmol/L (3.6-5.2) 08/26/17 02:25 Sodium 135.0 mmol/L (132-148) 08/26/17 02:25 Chloride 108.0 mmol/L (98-107) H 08/26/17 02:25 Glucose 104 mg/dl (65-105) 08/26/17 02:25 Lactate 1.0 mmol/L (0.7-2.1) 08/26/17 02:25 FiO2 21.0 % 08/26/17 02:25 Sodium 140 mmol/L (132-148) 08/31/17 06:00 Potassium 3.7 mmol/L (3.6-5.0) 08/31/17 06:00 Chloride 110 mmol/L (98-107) H 08/31/17 06:00 Carbon Dioxide 23 mmol/L (21-33) 08/31/17 06:00 Anion Gap 10 (10-20) 08/31/17 06:00 BUN 11 mg/dL (7-21) 08/31/17 06:00 Creatinine 0.7 mg/dl (0.7-1.2) 08/31/17 06:00 Est GFR ( Amer) > 60 08/31/17 06:00 Est GFR (Non-Af Amer) > 60 08/31/17 06:00 Random Glucose 79 mg/dL (70-110) 08/31/17 06:00 Lactic Acid 1.4 mmol/L (0.7-2.1) 08/26/17 06:10 Calcium 9.1 mg/dL (8.4-10.5) 08/31/17 06:00 Phosphorus 4.4 mg/dL (2.5-4.5) 08/26/17 06:10 Magnesium 1.6 mg/dL (1.7-2.2) L 08/26/17 06:10 Total Bilirubin 0.3 mg/dL (0.2-1.3) 08/31/17 06:00 AST 30 U/L (14-36) 08/31/17 06:00 ALT 64 U/L (7-56) H 08/31/17 06:00 Alkaline Phosphatase 69 U/L (38-126) 08/31/17 06:00 Lactate Dehydrogenase 694 U/L (333-699) 08/26/17 16:13 Total Creatine Kinase 161 U/L (35-230) 08/26/17 16:13 Troponin I < 0.01 ng/mL 08/26/17 16:13 C-React Prot High Sens > 15.00 mg/L (1.00-3.00) H 08/28/17 07:40 NT-Pro-B Natriuret Pep 149 pg/mL (0-450) 08/25/17 21:05 Total Protein 5.8 g/dL (5.8-8.3) 08/31/17 06:00 Albumin 2.8 g/dL (3.0-4.8) L 08/31/17 06:00 Globulin 3.0 gm/dL 08/31/17 06:00 Albumin/Globulin Ratio 1.0 (1.1-1.8) L 08/31/17 06:00 25-OH Vitamin D Total 31.4 NG/ML (30.0-100.0) 08/26/17 06:10 Procalcitonin 0.57 NG/ML (0.19-0.49) H 08/28/17 07:40 Venous Blood Potassium 3.6 mmol/L (3.6-5.2) 08/26/17 02:25 Urine Color Yellow (YELLOW) 08/25/17 22:11 Urine Appearance Sl cloudy (CLEAR) 08/25/17 22:11 Urine pH 6.0 (4.7-8.0) 08/25/17 22:11 Ur Specific [place] 1.020 (1.005-1.035) 08/25/17 22:11 Urine Protein Trace mg/dL (<30 mg/dL) H 08/25/17 22:11 Urine Glucose (UA) Negative mg/dL (NEGATIVE) 08/25/17 22:11 Urine Ketones Negative mg/dL (NEGATIVE) 08/25/17 22:11 Urine Blood Trace-intact (NEGATIVE) H 08/25/17 22:11 Urine Nitrate Negative (NEGATIVE) 08/25/17 22:11 Urine Bilirubin Negative (NEGATIVE) 08/25/17 22:11 Urine Urobilinogen 0.2 E.U./dL (<1 E.U./dL) 08/25/17 22:11 Ur Leukocyte Esterase Negative Zheng/uL (NEGATIVE) 08/25/17 22:11 Urine RBC 5 - 10 /hpf (0-2) 08/25/17 22:11 Urine WBC Negative /hpf (0-6) 08/25/17 22:11 Ur Epithelial Cells 1 - 3 /hpf (0-5) 08/25/17 22:11 Urine Opiates Screen Positive (NEGATIVE) H 08/25/17 21:30 Urine Methadone Screen Negative (NEGATIVE) 08/25/17 21:30 Acetaminophen < 10.0 ug/ml (10.0-20.0) L 08/25/17 21:05 Ur Barbiturates Screen Negative (NEGATIVE) 08/25/17 21:30 Ur Phencyclidine Scrn Negative (NEGATIVE) 08/25/17 21:30 Ur Amphetamines Screen Negative (NEGATIVE) 08/25/17 21:30 U Benzodiazepines Scrn Negative (NEGATIVE) 08/25/17 21:30 U Oth Cocaine Metabols Negative (NEGATIVE) 08/25/17 21:30 U Cannabinoids Screen Negative (NEGATIVE) 08/25/17 21:30 Hepatitis A IgM Ab Negative (NEGATIVE) 08/25/17 21:05 Hep Bs Antigen Negative (NEGATIVE) 08/25/17 21:05 Hep B Core IgM Ab Negative (NEGATIVE) 08/25/17 21:05 Hepatitis C Antibody Negative (NEGATIVE) 08/25/17 21:05 Blood Type A POSITIVE 08/25/17 21:30 Antibody Screen Negative 08/25/17 21:30 BBK History Checked Patient has bt 08/25/17 21:30 - Hospital Course Hospital Course: 62 yo F with PMH of Protein C deficiency, asthma, HLD, HTN, atrial fibrillation , DVT with IVC filter, previous CVA, and warfarin induced necrosis with subsequent b/l partial mastectomy and bilateral fourth digit amputation who initially presented to the ED with 1 day history of worsening dyspnea and urinary retention. Patient had leukocytosis and fever with elevated lactate; code sepsis was called and patient was treated with IV antibiotics and IV fluids. Patient also had transaminitis, and CT scan of the abdomen showed dilated CBD. Further workup did not show any cholangitis, choledocholithiasis, obstruction, or cholecystitis. Approximately one day after initiation of antibiotics, patient again spiked a fever to 101.4. Repeat blood cultures were drawn and were subsequently negative. Patient has known cholelithaisis, and may have passed a gallstone. CT scan of the abdomen also showed a lingular pneumonia , which was treated as HAP. Yesterday, patient was going to be discharged with a course of PO levaquin, but had nausea and vomiting after administration of the first dose. Today, patient reports feeling better overall. She denies chest pain or shortness of breath, fever, or chills. She was started on Avelox and Doxycycline , which she tolerated without further nausea/vomiting. She was given a prescription for Avelox, Doxycycline, and Zofran. She was also given instructions for follow up. All questions were answered to her satisfaction, and she was discharged to home. Discharge Exam - Head Exam Head Exam: NORMAL INSPECTION - Eye Exam Eye Exam: EOMI, Normal appearance, PERRL Pupil Exam: NORMAL ACCOMODATION - ENT Exam ENT Exam: Mucous Membranes Moist - Neck Exam Neck exam: Normal Inspection - Respiratory Exam Respiratory Exam: Clear to PA & Lateral, NORMAL BREATHING PATTERN. absent: Rales, Rhonchi, Wheezes - Cardiovascular Exam Cardiovascular Exam: RRR, +S1, +S2 - GI/Abdominal Exam GI & Abdominal Exam: Normal Bowel Sounds, Soft. absent: Tenderness - Extremities Exam Extremities exam: full ROM, normal capillary refill - Neurological Exam Neurological exam: Alert, CN II-XII Intact, Oriented x3 - Psychiatric Exam Psychiatric exam: Normal Affect, Normal Mood - Skin Skin Exam: Dry, Intact, Normal Color Discharge Plan - Discharge Medications Prescriptions: Doxycycline Hyclate [Doryx] 100 mg PO Q12 #6 cap Moxifloxacin HCl 400 mg PO DAILY #3 tablet Ondansetron ODT [Zofran ODT] 4 mg PO Q8H PRN #14 odt PRN Reason: Nausea/Vomiting - Follow Up Plan Condition: FAIR Disposition: HOME/ ROUTINE Instructions: Chest Pain (DC), Sepsis (ED), Leukocytosis (DC) Additional Instructions: You are being discharged to home. - Continue to take doxycycline 100mg twice daily and moxifloxacin 400mg once daily for 3 days, even if you feel better - Use zofran as needed, up to three times daily; dissolve tablet under your tongue - Continue all other medications as previously prescribed - Follow up with your primary care doctor within one week - For any new or worsening concerns, contact your primary care doctor immediately or return to the ER Referrals: Ketan Moe, [Primary Care Provider] -
[2017-09-01] MEDS ORDERED: Ergocalciferol 50,000 Intl Units Cap PO SCH (10:00)
== END 2017-08-31 19:03 | disposition home health service (06) | DRG 871 ==
LOC: ED 15:00 → ERH 23:16 → 2RNO 08-26 02:10 → ERH 08-26 02:11 → 2RNO 08-26 05:12 → 5RNO 08-27 16:29
PROVIDERS: ADMIT Hospitalist; ATTEND Internal Medicine
DX: A41.89 Other specified sepsis (principal); J18.9 Pneumonia, unspecified organism; D68.59 Other primary thrombophilia; N17.9 Acute kidney failure, unspecified; J45.909 Unspecified asthma, uncomplicated; I48.91 Unspecified atrial fibrillation; I10 Essential (primary) hypertension; E78.5 Hyperlipidemia, unspecified; K80.20 Calculus of gallbladder without cholecystitis without obstruction; D63.8 Anemia in other chronic diseases classified elsewhere; Y95 Nosocomial condition; G89.29 Other chronic pain; K21.9 Gastro-esophageal reflux disease without esophagitis; I73.9 Peripheral vascular disease, unspecified; Z79.01 Long term (current) use of anticoagulants; Z86.718 Personal history of other venous thrombosis and embolism; Z98.84 Bariatric surgery status; Z86.73 Personal history of transient ischemic attack (TIA), and cerebral infarction without residual deficits; Z90.13 Acquired absence of bilateral breasts and nipples; Z89.022 Acquired absence of left finger(s); Z89.021 Acquired absence of right finger(s); Z88.0 Allergy status to penicillin

== ENCOUNTER 2017-10-21 21:47 | Inpatient (IN) | payer MEDICARE, OTHER ==
[2017-10-21] MEDS ORDERED: Dextrose 50% SYRINGE Inj (50 ml) ONE (21:53)
--- NOTE | 2017-10-21 21:58 | ED PDOC ---
Arrival/HPI - General Time Seen by Provider: 10/21/17 21:49 Historian: Patient - History of Present Illness Narrative History of Present Illness (Text): 10/21/17 21:58 Keesha Lam is a 62 year old female, protein C deficiency, asthma, hyperlipidemia, hypertension, atrial fibrillation, DVT with IVC filter, CVA, and warfarin induced necrosis, who presents to the Emergency department brought in by EMS for generalized weakness tonight. Patient noted to be hypoglycemic at 48 on arrival to the Emergency department. Limited HPI and ROS secondary to patient's acuity of condition. Symptom Onset: Gradual Symptom Course: Unchanged Activities at Onset: Light Context: Home Past Medical History - Provider Review Nursing Documentation Reviewed: Yes - Infectious Disease Hx of Infectious Diseases: None - Tetanus Immunization Tetanus Immunization: Unknown - Cardiac Hx Hypertension: Yes - Pulmonary Hx Respiratory Disorders: Yes Hx Asthma: Yes Hx Bronchitis: No Hx Chronic Obstructive Pulmonary Disease (COPD): No Hx Emphysema: No Hx Pneumonia: Yes Hx Respiratory Aspiration: No Hx Respiratory Tract Infection: No Hx Sleep Apnea: No Hx Tuberculosis: No - Neurological HX Cerebrovascular Accident: Yes - HEENT Hx HEENT Disorder: Yes Hx Blind: Yes Hx Cataracts: No Hx Deafness: No Hx Difficulty Chewing: No Hx Epistaxis: No Hx Glaucoma: No Hx Macular Degeneration: No Other/Comment: Tonsillectomy - Renal Hx Renal Failure: Yes - Endocrine/Metabolic Hx Endocrine Disorders: No Hx Adrenal Cancer: No Hx Diabetes Insipidus: No Hx Diabetes Mellitus Type 1: No Hx Diabetes Mellitus Type 2: No Hx Hyperthyroidism: No Hx Hypothyroidism: No Hx Systemic Lupus Erythematosus: No - Hematological/Oncological Hx Blood Transfusions: Yes Hx Blood Transfusion Reaction: No - Integumentary Hx Dermatological Disorder: No Hx Basal Cell Carcinoma: No Hx Eczema: No Hx Melanoma: No Hx Psoriasis: No Hx Squamous Cell Carcinoma: No - Musculoskeletal/Rheumatological Hx Arthritis: Yes - Gastrointestinal Hx Gastrointestinal Disorders: Yes Hx Colostomy: No Hx Crohn's Disease: No Hx Diverticulitis: No Hx Gall Bladder Disease: Yes Hx Gastroesophageal Reflux: Yes Hx Ileostomy: No Hx Liver Failure: No Hx Pancreatitis: No HX Swallowing Problems: No Other/Comment: Gastric Bypass Surgery. Appetite Changes. Weight Loss. - Genitourinary/Gynecological Hx Genitourinary Disorders: No Hx Hematuria: No Hx Incontinence: No Hx Sexually Transmitted Diseases: No Hx Urinary Tract Infection: Yes - Psychiatric Hx Psychophysiologic Disorder: No Hx Anxiety: No Hx Bipolar Disorder: No Hx Depression: No Hx Emotional Abuse: No Hx Hallucinations: No Hx Panic Disorder: No Hx Post Traumatic Stress Disorder: No Hx Psychosis: No Hx Physical Abuse: No Hx Schizophrenia: No Hx Sexual Abuse: No Hx Substance Use: No - Past Surgical History Past Surgical History: Non-Contributing - Surgical History Hx Mastectomy: No - Anesthesia Hx Anesthesia Reactions: No Hx Malignant Hyperthermia: No - Suicidal Assessment Feels Threatened In Home Enviroment: No Family/Social History - Physician Review Nursing Documentation Reviewed: Yes Family/Social History: Unknown Family HX Smoking Status: Never Smoked Hx Alcohol Use: No Hx Substance Use: No Hx Substance Use Treatment: No Allergies/Home Meds Allergies/Adverse Reactions: Allergies Penicillins Allergy (Verified 08/11/17 14:14) ANGIOEDEMA/SHORTNESS OF BREATH ANGIOEDEMA SHORTNESS OF BREATH levofloxacin Adverse Reaction (Verified 08/31/17 08:45) VOMITING Home Medications: Home Meds Medication Instructions Recorded Confirmed Apixaban [Eliquis] 5 mg PO BID 03/26/17 10/22/17 Gabapentin [Neurontin] 400 mg PO TID 03/26/17 10/22/17 Furosemide [Lasix] 40 mg PO DAILY 10/22/17 10/22/17 Pantoprazole Sodium [Protonix] 20 mg PO DAILY 10/22/17 10/22/17 Potassium Chloride [K-Dur 20 mEq 20 meq PO DAILY 10/22/17 10/22/17 ER Tab] Review of Systems - Review of Systems Systems not reviewed;Unavailable: Acuity of Condition Neurological: Other (+hypoglycemia) Physical Exam - Physical Exam Physical Exam Limitations: Altered Mental Status Vital Signs Reviewed: Yes Vital Signs Temp Pulse Pulse Pulse Resp BP Pulse Ox 10/22/17 02:34 98.5 F 95 H 95 H 95 H 20 113/80 10/22/17 00:10 98 F 92 H 19 118/75 99 10/21/17 21:50 98 F 102 H 18 137/84 95 Pulse: Tachycardic Mental Status: Positive for: Confused - Systems Exam Head: Present: Atraumatic, Normocephalic Pupils: Present: PERRL Extroacular Muscles: Present: EOMI Conjunctiva: Present: Normal Mouth: Present: Moist Mucous Membranes Neck: Present: Normal Range of Motion Respiratory/Chest: Present: Clear to Auscultation, Good Air Exchange. No: Respiratory Distress, Accessory Muscle Use Cardiovascular: Present: Regular Rate and Rhythm, Normal S1, S2. No: Murmurs Abdomen: No: Tenderness, Distention, Peritoneal Signs Back: Present: Normal Inspection Upper Extremity: No: Cyanosis, Edema Lower Extremity: No: Edema Neurological: Present: Motor Func Grossly Intact Skin: Present: Warm, Dry, Normal Color. No: Rashes Psychiatric: Present: Other (Confused) Medical Decision Making ED Course and Treatment: 10/21/17 21:58 Impression: 62 year old female brought in for generalized weakness and hypoglycemia. Plan: -- EKG -- Chest X-ray -- Labs, cardiac enzymes, alcohol level, blood cultures -- Urinalysis, urine cultures, urine drug screen -- Reassess and disposition Prior Visits: Notes and results from previous visits were reviewed. Progress Notes: Reviewed EKG, sinus tachycardia at [address]pm[address] Non-specific ST/T wave changes. Pt has very poor IV access. Central line placed by Dr. Dotson, neurosurgical physician assistant computer numerical control programmer, under my supervision. Chest X-ray reviewed, shows no acute processes. 10/22/17 02:12 Case discussed with emergency medical technician basic computer numerical control programmer, who is aware and agrees with plan. 10/22/17 02:[address] Frias, who is aware and agrees with plan. Accepts pt in to hospitalist service. - Lab Interpretations Microbiology Results: Microbiology Results 10/22/17 01:30 Blood-Venous Blood Culture - Preliminary NO GROWTH AFTER 24 HOURS 10/22/17 01:15 Blood-Venous Blood Culture - Preliminary NO GROWTH AFTER 24 HOURS Lab Results: 10/22/17 06:00 10/22/17 06:00 Lab Results 10/22/17 11:41: Cortisol AM Sample 3.7 L 10/22/17 11:20: POC Glucose (mg/dL) 87 10/22/17 07:20: POC Glucose (mg/dL) 94 10/22/17 06:00: Sodium 141, Potassium 3.7, Chloride 109 H, Carbon Dioxide 18 L, Anion Gap 17, BUN 17, Creatinine 1.0, Est GFR ( Amer) > 60, Est GFR (Non- Af Amer) 56, Random Glucose 95, Calcium 8.9, Total Bilirubin 0.5, AST 52 H, ALT 34, Alkaline Phosphatase 74, Total Protein 6.8, Albumin 3.8, Globulin 2.9, Albumin/Globulin Ratio 1.3, Vitamin B12 304, Folate 20.0 10/22/17 06:00: WBC 5.9, RBC 3.66, Hgb 10.9 L, Hct 33.7 L, MCV 92.1, MCH 29.8, MCHC 32.3, RDW 15.1 H, Plt Count 218, MPV 9.5, Gran % 55.2, Lymph % (Auto) 30.5 , [place] % (Auto) 10.7 H, Eos % (Auto) 3.4, Baso % (Auto) 0.2, Gran # 3.26, Lymph # (Auto) 1.8, [place] # (Auto) 0.6, Eos # (Auto) 0.2, Baso # (Auto) 0.01 10/22/17 05:59: POC Glucose (mg/dL) 98 10/22/17 05:30: 25-OH Vitamin D Total 26.4 L 10/22/17 02:51: Urine Opiates Screen Positive H, Urine Methadone Screen Negative , Ur Barbiturates Screen Negative, Ur Phencyclidine Scrn Negative, Ur Amphetamines Screen Negative, U Benzodiazepines Scrn Negative, U Oth Cocaine Metabols Negative, U Cannabinoids Screen Negative 10/22/17 02:51: Urine Color Yellow, Urine Appearance Sl cloudy, Urine pH 6.0, Ur Specific [place] 1.015, Urine Protein Negative, Urine Glucose (UA) Negative, Urine Ketones Negative, Urine Blood Negative, Urine Nitrate Negative, Urine Bilirubin Negative, Urine Urobilinogen 0.2, Ur Leukocyte Esterase Small H, Urine RBC 0 - 2, Urine WBC 1 - 3, Ur Epithelial Cells 0 - 2, Calcium Oxalate Crystal Few, Urine Bacteria Rare 10/22/17 02:12: POC Glucose (mg/dL) 72 10/22/17 01:08: Acetaminophen < 10.0 L 10/22/17 01:08: Alcohol, Quantitative < 10 10/22/17 01:08: Sodium 138, Potassium 3.3 L, Chloride 108 H, Carbon Dioxide 20 L , Anion Gap 13, BUN 18, Creatinine 1.0, Est GFR ( Amer) > 60, Est GFR ( Non-Af Amer) 56, Random Glucose 240 H, Calcium 8.8, Phosphorus 4.5, Magnesium 2.0, Total Bilirubin 0.7, AST 54 H D, ALT 24, Alkaline Phosphatase 79, Lactate Dehydrogenase 534, Total Creatine Kinase 113, Troponin I 0.03 D, Total Protein 6.5, Albumin 3.6, Globulin 2.9, Albumin/Globulin Ratio 1.2 10/22/17 01:08: PT 14.0 H, INR 1.22 H, APTT 24.7 L 10/22/17 01:08: WBC 6.6 D, RBC 3.68, Hgb 11.1 L D, Hct 33.8 L, MCV 91.8, MCH 30.2, MCHC 32.8, RDW 15.1 H, Plt Count 213, MPV 9.6, Gran % 59.3, Lymph % (Auto ) 27.5, [place] % (Auto) 9.8 H, Eos % (Auto) 3.2, Baso % (Auto) 0.2, Gran # 3.89, Lymph # (Auto) 1.8, [place] # (Auto) 0.6, Eos # (Auto) 0.2, Baso # (Auto) 0.01 10/22/17 00:10: POC Glucose (mg/dL) 66 I have reviewed the lab results: Yes - RAD Interpretation Radiology Orders: 10/22/17 00:02 CXR [CHEST PORTABLE] [RAD] Stat 10/22/17 00:42 CXR [CHEST PORTABLE] [RAD] Stat 10/22/17 02:15 HEAD W/O CONTRAST [CT] Stat 10/22/17 11:41 PANCREATIC PROTOCOL [CT] Routine 10/22/17 15:34 BRAIN WITHOUT CONTRAST [MRI] Routine Licensed Electrician: ED Physician - EKG Interpretation Interpreted by ED Physician: Yes Type: 12 lead EKG - Medication Orders Current Medication Orders: Apixaban (Eliquis) 5 mg PO BID ALEXI PRN Reason: Protocol Last Admin: 10/22/17 17:13 Dose: 5 mg Divalproex Sodium (Depakote Er(Once Daily)) 500 mg PO HS ALEXI PRN Reason: Protocol Last Admin: 10/22/17 22:00 Dose: 500 mg Behavioural Document 10/22/17 22:00 SG (Rec: 10/22/17 22:00 SG [id number]) Maintenance Maintenance Dose Yes Re-Assess: Reassess Psych Meds Document 10/22/17 23:00 SG (Rec: 10/22/17 23:25 SG [facility] [id number]) Reassess Psych Med Effective Furosemide (Lasix) 40 mg PO DAILY [facility] Last Admin: 10/22/17 09:03 Dose: 40 mg MAR Blood Pressure Document 10/22/17 09:03 KAA (Rec: 10/22/17 09:03 KAA [facility] [id number]) Blood Pressure Blood Pressure (100/60-150/90) 118/76 Gabapentin (Neurontin) 300 mg PO BID PRN; Protocol PRN Reason: neuropathic pain Sodium Chloride (Sodium Chloride 0.9%) 1,000 mls @ 100 mls/hr IV .Q10H [facility] Metoprolol Tartrate (Lopressor) 25 mg PO BID [facility] Last Admin: 10/22/17 17:13 Dose: 25 mg MAR Pulse and Blood Pressure Document 10/22/17 17:13 KAA (Rec: 10/22/17 17:13 KAA [id number]) Pulse Pulse Rate (60-90) 77 Blood Pressure Blood Pressure (100/60-150/90) 104/70 Oxycodone HCl (Oxycodone Immediate Release Tab) 30 mg PO TID PRN PRN Reason: Pain, severe (8-10) Last Admin: 10/23/17 01:35 Dose: 30 mg [facility] Pain Assessment Document 10/23/17 01:35 (Rec: 10/23/17 01:36 [id number] Pain Reassessment Is this a pain reassessment? No Sleep Is patient sleeping during reassessment? No Presence of Pain Presence of Pain Yes Location Left, Right or Bilateral Right Upper or Lower Lower Pain Location Body Site Back Knee Description Description Chronic Pain Behavior Grasping Site Rubbing Site Aggravating Factors Exercise/Activity Alleviating Factors/Management Medication Techniques Alleviating Factors Medication Re-Assess: MAR Pain Assessment Document 10/23/17 02:35 SG (Rec: 10/23/17 04:03 SG [facility] [id number]) Pain Reassessment Is this a pain reassessment? Yes Sleep Is patient sleeping during reassessment? Yes Potassium Chloride (K-Dur 20 Meq Er Tab) 20 meq PO 0800 [facility] Last Admin: 10/22/17 09:02 Dose: 20 meq Discontinued Medications Dextrose (Dextrose 50% Inj) 50 ml IVP STAT STA Stop: 10/22/17 01:09 Last Admin: 10/22/17 01:10 Dose: 50 ml IVP Administration Document 10/22/17 01:10 LA (Rec: 10/22/17 02:23 LA [facility] [id number]) Charges for Administration # of IVP Administrations 1 Gabapentin (Neurontin) 300 mg PO BID ALEXI PRN Reason: Protocol Oxycodone HCl (Oxycodone Immediate Release Tab) 30 mg PO STAT STA Stop: 10/22/17 15:08 Last Admin: 10/22/17 15:33 Dose: 30 mg MAR Pain Assessment Document 10/22/17 15:33 KAA (Rec: 10/22/17 15:34 KAA [facility] [id number]) Pain Reassessment Is this a pain reassessment? No Sleep Is patient sleeping during reassessment? No Presence of Pain Presence of Pain Yes Pain Scale Used Pain Scale Used Numeric Location Pain Location Body Site Back Description Description Constant Intensity of Pain at present 10 Alleviating Factors/Management Medication Techniques Alleviating Factors Medication Pantoprazole Sodium (Protonix Ec Tab) 40 mg PO 0600 ALEXI Last Admin: 10/22/17 05:52 Dose: 40 mg Potassium Chloride (K-Dur 20 Meq Er Tab) 40 meq PO STAT STA Stop: 10/22/17 01:48 Last Admin: 10/22/17 02:25 Dose: 40 meq - Scribe Statement The provider has reviewed the documentation as recorded by the Leonaibchris Griffiths All medical record entries made by the Sherwin were at my direction and personally dictated by me. I have reviewed the chart and agree that the record accurately reflects my personal performance of the history, physical exam, medical decision making, and the department course for this patient. I have also personally directed, reviewed, and agree with the discharge instructions and disposition. Disposition/Present on Arrival - Present on Arrival Any Indicators Present on Arrival: No History of DVT/PE: Yes History of Uncontrolled Diabetes: No Urinary Catheter: No History Surgical Site Infection Following: None - Disposition Have Diagnosis and Disposition been Completed?: Yes Diagnosis: Altered mental status Disposition: HOSPITALIZED Disposition Time: 02:15 Condition: FAIR
--- NOTE | 2017-10-22 00:52 | PCM.PROC ---
Procedures Attestation:: I certify that I have explained the specified Operation(s) or Procedure(s), risks, benefits and reasonable alternatives to the Patient and/or other person responsible. The opportunity was given to ask questions and all questions answered - Central Line Placement Right Internal Jugular Triple Lumen Catheter Aseptic technique was employed throughout the procedure: Hand Hygiene done prior to procedure, Full sterile barriers (mask, hair cover, sterile gown, sterile gloves), Full body sterile drape, Chloraprep Antiseptic: 30 second prep for IJ or SC sites CVP Time Out Performed: Yes Pt. Placed on Pulse Ox Monitor: Yes Central Line Prep: Chlorhexidine-Alcohol Combination Local Anesthesia Used: Lidocaine 1% Amount of Anesthesia Used (mls): 5 Ultrasound Used for Placement: Yes Central Line Lumen Inserted: triple Central Line Length: 16 cm Post Procedure: Sutured in Place, Good Blood Return, All Ports Aspirated, Flushed, Capped, Sterile Dressing Applied Secured by: Suture Post procedure dressing: Clear vapor permeable, Chlorhexidine disc (Biopatch) Post Procedure X-Ray: Yes Patient Tolerated Procedure: Well Immediate Complications: Catheter Malposition Additional Comments: Catheter was advanced too far extending into the atrium. Area was resterilized with chlorohexidine, which dried for 3min, the sutures cut, and the catheter retracted 1-2cm, and re-sutured in place. Tagaderm replaced. Repeat CXR performed and reviewed with attending ER physician and was deemed to be in appropriate position.
[2017-10-22] MEDS ORDERED: Dextrose 50% SYRINGE Inj (50 ml) IVP STA (01:08)
[2017-10-22 01:45] LABS: BASO # 0.01 K/mm3 (0.0-2.0); BASO % 0.2 % (0.0-3.0); EOS # 0.2 (0.0-0.7); EOS % 3.2 % (1.5-5.0); GRAN # 3.89 (1.4-6.5); GRAN % 59.3 % (50.0-68.0); LYMPH # 1.8 (1.2-3.4); LYMPH % 27.5 % (22.0-35.0); MEAN CELL VOLUME 91.8 fl (80.0-105.0); MEAN CORPUSCULAR HEMOGLOBIN 30.2 pg (25.0-35.0); MEAN CORPUSCULAR HGB CONC 32.8 g/dl (31.0-37.0); MEAN PLATELET VOLUME 9.6 fl (7.0-11.0); MONO # 0.6 (0.1-0.6); MONO % 9.8 % (1.0-6.0); RBC 3.68 10^6/uL (3.5-6.1); RED CELL DISTRIBUTION WIDTH 15.1 % (11.5-14.5); WHITE BLOOD COUNT 6.6 10^3/ul (4.5-11.0)
[2017-10-22 01:46] LABS: ALB/GLOB RATIO 1.2 (1.1-1.8); ALBUMIN 3.6 g/dL (3.0-4.8); ALT/SGPT 24 U/L (7-56); AST/SGOT 54 U/L (14-36); BLOOD UREA NITROGEN 18 mg/dL (7-21); CALCIUM 8.8 mg/dL (8.4-10.5); GFR AFRICAN-AMERICAN > 60; GFR NON-AFRICAN AMERICAN 56
[2017-10-22] MEDS ORDERED: Potassium Chloride 20 mEq ER Tab PO STA (01:47)
[2017-10-22 01:50] LABS: HEMOGLOBIN 11.1 g/dL (12.0-16.0)
[2017-10-22 01:51] LABS: INR 1.22 (0.93-1.08); PARTIAL THROMBOPLASTIN TIME 24.7 Seconds (25.1-36.5)
[2017-10-22 02:03] LABS: TROPONIN I 0.03 ng/mL
--- NOTE | 2017-10-22 02:57 | CP.PCM.HP ---
Addendum entered and electronically signed by Kim Brian DO 10/22/17 04:34 : Would recommend performing a complete work-up for hypoglycemia given the patient demonstrated autonomic symptoms of hypoglycemia, such as tremor, anxiety , sweating, and prior to arrival in the ED and then demonstrated near complete resolution of symptoms after glucose administration. 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 She was brought in via EMS and was found to have a BG level of 49 and difficult venous access requiring central line placement. Medicine was consulted for altered mental status. The patient was given an ampule of D50 and her potassium was repleted orally. At the time of my encounter, the patient reports not eating today, which she often does, and falling asleep on her bed. She is unable to provide a timeline. She reports waking up in an angry mood; distraught. A friend of hers, Oracio, she reports, was somehow able to called EMS. She complains specifically of an inability to move her legs, though after slight massage of her legs she is able to get out of the bed, ambulate in front of the ED staff, go to the restroom, and urinate in a cup. She denies dysuria, cough, fever, chest pain, palpitations, dyspnea, unilateral weakness or numbness, headache, visual disturbances, melena, hematochezia, or night sweats. She is able to recall that she was ambulating fine earlier today; that she also out with friends today. Vital signs were stable, though she was in atrial fibrillation on the monitor. She reports a history of paroxysmal atrial fibrillation. PMH: Protein C deficiency, asthma, HLD, HTN, atrial fibrillation, DVT with IVC filter, previous CVA, and warfarin induced necrosis with subsequent b/l partial masctectomy and bilateral fourth digit amputation PSH: Tonsillectomy, double mastectomy, bilateral fourth digit amputation, gastric bypass All: Penicillin, levofloxacin PHx: Extensive family history of cancer. Mom: Breast Ca, Dad: metastatic cancer , unknown SH: Denies tobacco, alcohol or illicit drug use; ambulates with cane Meds: reviewed Present on Admission - Present on Admission Any Indicators Present on Admission: Yes History of DVT/PE: Yes Review of Systems - Review of Systems All systems: reviewed and no additional remarkable complaints except (as per HPI ) Past Patient History - Infectious Disease Hx of Infectious Diseases: None - Tetanus Immunizations Tetanus Immunization: Unknown - Past Medical History & Family History Past Medical History?: Yes - Past Social History Smoking Status: Never Smoked - CARDIAC Hx Hypertension: Yes - PULMONARY Hx Respiratory Disorders: Yes Hx Asthma: Yes Hx Bronchitis: No Hx Chronic Obstructive Pulmonary Disease (COPD): No Hx Emphysema: No Hx Pneumonia: Yes Hx Respiratory Aspiration: No Hx Respiratory Tract Infection: No Hx Sleep Apnea: No Hx Tuberculosis: No - NEUROLOGICAL HX Cerebrovascular Accident: Yes - HEENT Hx HEENT Problems: Yes Hx Blind: Yes Hx Cataracts: No Hx Deafness: No Hx Difficulty Chewing: No Hx Epistaxis: No Hx Glaucoma: No Hx Macular Degeneration: No Other/Comment: Tonsillectomy - RENAL Hx Renal Failure: Yes - ENDOCRINE/METABOLIC Hx Endocrine Disorders: No Hx Adrenal Cancer: No Hx Diabetes Insipidus: No Hx Diabetes Mellitus Type 1: No Hx Diabetes Mellitus Type 2: No Hx Hyperthyroidism: No Hx Hypothyroidism: No Hx Systemic Lupus Erythematosus: No - HEMATOLOGICAL/ONCOLOGICAL Hx Blood Transfusions: Yes Hx Blood Transfusion Reaction: No - INTEGUMENTARY Hx Dermatological Problems: No Hx Basil Cell: No Hx Eczema: No Hx Melanoma: No Hx Psoriasis: No Hx Squamous Cell: No - MUSCULOSKELETAL/RHEUMATOLOGICAL Hx Arthritis: Yes - GASTROINTESTINAL Hx Gastrointestinal Disorders: Yes Hx Colostomy: No Hx Crohn's Disease: No Hx Diverticulitis: No Hx Gall Bladder Disease: Yes Hx Gastroesophageal Reflux: Yes Hx Ileostomy: No Hx Liver Failure: No Hx Pancreatitis: No HX Swallowing Problems: No Other/Comment: Gastric Bypass Surgery. Appetite Changes. Weight Loss. - GENITOURINARY/GYNECOLOGICAL Hx Genitourinary Disorders: No Hx Hematuria: No Hx Incontinence: No Hx Sexually Transmitted Disorders: No Hx Urinary Tract Infection: Yes - PSYCHIATRIC Hx Psychophysiologic Disorder: No Hx Anxiety: No Hx Bipolar Disorder: No Hx Depression: No Hx Emotional Abuse: No Hx Hallucinations: No Hx Panic Symptoms: No Hx Post Traumatic Stress Disorder: No Hx Psychosis: No Hx Physical Abuse: No Hx Schizophrenia: No Hx Sexual Abuse: No Hx Substance Use: No - SURGICAL HISTORY Hx Mastectomy: No - ANESTHESIA Hx Anesthesia Reactions: No Hx Malignant Hyperthermia: No Meds Allergies/Adverse Reactions: Allergies Allergy/AdvReac Type Severity Reaction Status Date / Time Penicillins Allergy ANGIOEDEMA/SHORTNESS Verified 08/11/17 14:14 OF BREATH levofloxacin AdvReac VOMITING Verified 08/31/17 08:45 Physical Exam - Constitutional Appears: Non-toxic, No Acute Distress - Head Exam Head Exam: ATRAUMATIC, NORMOCEPHALIC - Eye Exam Eye Exam: EOMI, Normal appearance, PERRL - ENT Exam ENT Exam: Mucous Membranes Dry - Neck Exam Neck exam: Positive for: Normal Inspection - Respiratory Exam Respiratory Exam: Clear to Auscultation Bilateral, NORMAL BREATHING PATTERN. absent: Accessory Muscle Use - Cardiovascular Exam Cardiovascular Exam: Irregular Rhythm, +S1, +S2 - GI/Abdominal Exam GI & Abdominal Exam: Soft. absent: Guarding, Tenderness - Exam Exam: absent: Bladder Distension - Extremities Exam Additional comments: left leg is cold to touch compared to right - Back Exam Back exam: NORMAL INSPECTION. absent: CVA tenderness (L), CVA tenderness (R) - Neurological Exam Neurological exam: Alert, CN II-XII Intact, Oriented x3 Additional comments: walks with cane - Psychiatric Exam Psychiatric exam: Normal Affect, Normal Mood - Skin Skin Exam: Dry, Intact, Normal Color, Warm Results - Labs Result Diagrams: 10/22/17 01:08 10/22/17 01:08 Labs: Laboratory Results - last 24 hr 10/22/17 10/22/17 10/22/17 00:10 01:08 01:08 WBC 6.6 D RBC 3.68 Hgb 11.1 L D Hct 33.8 L MCV 91.8 MCH 30.2 MCHC 32.8 RDW 15.1 H Plt Count 213 MPV 9.6 Gran % 59.3 Lymph % (Auto) 27.5 [place] % (Auto) 9.8 H Eos % (Auto) 3.2 Baso % (Auto) 0.2 Gran # 3.89 Lymph # (Auto) 1.8 [place] # (Auto) 0.6 Eos # (Auto) 0.2 Baso # (Auto) 0.01 PT 14.0 H INR 1.22 H APTT 24.7 L Sodium Potassium Chloride Carbon Dioxide Anion Gap BUN Creatinine Est GFR ( Amer) Est GFR (Non-Af Amer) POC Glucose (mg/dL) 66 Random Glucose Calcium Phosphorus Magnesium Total Bilirubin AST ALT Alkaline Phosphatase Lactate Dehydrogenase Total Creatine Kinase Troponin I Total Protein Albumin Globulin Albumin/Globulin Ratio Acetaminophen Alcohol, Quantitative 10/22/17 10/22/17 10/22/17 01:08 01:08 01:08 WBC RBC Hgb Hct MCV MCH MCHC RDW Plt Count MPV Gran % Lymph % (Auto) [place] % (Auto) Eos % (Auto) Baso % (Auto) Gran # Lymph # (Auto) [place] # (Auto) Eos # (Auto) Baso # (Auto) PT INR APTT Sodium 138 Potassium 3.3 L Chloride 108 H Carbon Dioxide 20 L Anion Gap 13 BUN 18 Creatinine 1.0 Est GFR ( Amer) > 60 Est GFR (Non-Af Amer) 56 POC Glucose (mg/dL) Random Glucose 240 H Calcium 8.8 Phosphorus 4.5 Magnesium 2.0 Total Bilirubin 0.7 AST 54 H D ALT 24 Alkaline Phosphatase 79 Lactate Dehydrogenase 534 Total Creatine Kinase 113 Troponin I 0.03 D Total Protein 6.5 Albumin 3.6 Globulin 2.9 Albumin/Globulin Ratio 1.2 Acetaminophen < 10.0 L Alcohol, Quantitative < 10 10/22/17 02:12 WBC RBC Hgb Hct MCV MCH MCHC RDW Plt Count MPV Gran % Lymph % (Auto) [place] % (Auto) Eos % (Auto) Baso % (Auto) Gran # Lymph # (Auto) [place] # (Auto) Eos # (Auto) Baso # (Auto) PT INR APTT Sodium Potassium Chloride Carbon Dioxide Anion Gap BUN Creatinine Est GFR ( Amer) Est GFR (Non-Af Amer) POC Glucose (mg/dL) 72 Random Glucose Calcium Phosphorus Magnesium Total Bilirubin AST ALT Alkaline Phosphatase Lactate Dehydrogenase Total Creatine Kinase Troponin I Total Protein Albumin Globulin Albumin/Globulin Ratio Acetaminophen Alcohol, Quantitative Assessment & Plan - Assessment and Plan (Free Text) Assessment: 62 year old female (who lives alone) with a past medical history of atrial fibrillation, CVA, protein C & S defiency, who presents with a transient altered mental status. Plan: 1) Altered Mental status, likely secondary to hypoglycemia r/o out stroke or underlying infection - non-contrast CT of the head reads as Brain: Mild atrophy. No intracranial hemorrhage. No mass. No definite edema. Ventricles: No hydrocephalus. Bones/joints: No acute fracture. Probable bone island. Soft tissues: Unremarkable. Vasculature: Minimal atherosclerotic disease of intracranial arteries. Sinuses: No acute sinusitis. Mastoid air cells: No mastoid effusion. Orbits: Unremarkable as visualized. Sella: Enlarged sella with CSF density and flattening of pituitary gland - Neurology consulted - Blood cultures, urine culture, - Chest X-ray shows NAD - follow up AM labs, replete electroly 2) Atrial Fibrillation - Metoprolol tartarate 25 BID - Eliquis 5 mg BID 3) Polypharmacy possibly contributing to perceived slow mentation - holding narcotics - Gabapentin changed to PRN with 300 mg BID dosage 4) History of gastric bypass - Vitamin and mineral deficiencies may be a possible etiology contributing to the patients generalized malaise, labs ordered 5) GI/DVT prophylaxis - Protonix 40 mg PO daily - Not indicated as patient is on Eliquis Case reviewed and discussed with attending physician, Dr. Frias - Date & Time Date: 10/22/17 Time: 03:52 <Annika Frias - Last Filed: 10/22/17 06:37> Results - Vital Signs Recent Vital Signs: Last Vital Signs Temp 981 F H 10/22/17 03:17 Pulse 89 10/22/17 03:17 Resp 18 10/22/17 03:17 BP 134/80 10/22/17 03:17 Pulse Ox 97 10/22/17 03:17 - Labs Result Diagrams: 10/22/17 01:08 10/22/17 01:08 Labs: Laboratory Results - last 24 hr 10/22/17 10/22/17 10/22/17 02:51 02:51 05:59 POC Glucose (mg/dL) 98 Urine Color Yellow Urine Appearance Sl cloudy Urine pH 6.0 Ur Specific [place] 1.015 Urine Protein Negative Urine Glucose (UA) Negative Urine Ketones Negative Urine Blood Negative Urine Nitrate Negative Urine Bilirubin Negative Urine Urobilinogen 0.2 Ur Leukocyte Esterase Small H Urine RBC 0 - 2 Urine WBC 1 - 3 Ur Epithelial Cells 0 - 2 Calcium Oxalate Crystal Few Urine Bacteria Rare Urine Opiates Screen Positive H Urine Methadone Screen Negative Ur Barbiturates Screen Negative Ur Phencyclidine Scrn Negative Ur Amphetamines Screen Negative U Benzodiazepines Scrn Negative U Oth Cocaine Metabols Negative U Cannabinoids Screen Negative Attending/Attestation - Attestation I have personally seen and examined this patient.: Yes I have fully participated in the care of the patient.: Yes I have reviewed all pertinent clinical information: Yes Notes (Text): 10/22/17 06:37 Patient was seen when she was in bed # 592-32. Agree with history, physical examination, assessment and plan.
[2017-10-22] MEDS ORDERED: Sodium Chloride 0.9% 1,000 ML IV SCH (03:00)
[2017-10-22 03:32] LABS: BARBITURATES, UR NEGATIVE (NEGATIVE); BENZODIAZEPINES, UR NEGATIVE (NEGATIVE); OPIATES, UR POSITIVE (NEGATIVE); PHENCYCLIDINE, UR NEGATIVE (NEGATIVE)
[2017-10-22 03:35] LABS: URINE BILIRUBIN NEGATIVE (NEGATIVE); URINE BLOOD NEGATIVE (NEGATIVE); URINE GLUCOSE (UA) NEGATIVE (NEGATIVE); URINE LEUKOCYTE ESTERASE SMALL Leu/uL (NEGATIVE); URINE PROTEIN NEGATIVE mg/dL (<30 mg/dL); URINE UROBILINOGEN 0.2 E.U./dL (<1 E.U./dL)
[2017-10-22 03:39] LABS: URINE APPEARANCE SL CLOUDY (CLEAR); URINE COLOR YELLOW (YELLOW)
[2017-10-22 03:42] LABS: URINE CALCIUM OXALATE CRYSTALS FEW /hpf; URINE EPITHELIAL CELLS 0 - 2 /hpf (0-5); URINE RBC 0 - 2 /hpf (0-2)
[2017-10-22 03:43] LABS: URINE BACTERIA RARE (NEG)
--- NOTE | 2017-10-22 03:59 | CT ---
EXAM: CT Head Without Intravenous Contrast CLINICAL HISTORY: 62 years old, female; Signs and symptoms; Altered mental status/memory loss; Additional info: AMS TECHNIQUE: Axial computed tomography images of the head/brain without intravenous contrast. All CT scans at this facility use one or more dose reduction techniques, viz.: automated exposure control; ma/kV adjustment per patient size (including targeted exams where dose is matched to indication; i.e. head); or iterative reconstruction technique. Coronal and sagittal reformatted images were created and reviewed. COMPARISON: CT - HEAD W/O CONTRAST 2017-06-11 23:08 FINDINGS: Brain: Mild atrophy. No intracranial hemorrhage. No mass. No definite edema. Ventricles: No hydrocephalus. Bones/joints: No acute fracture. Probable bone island. Soft tissues: Unremarkable. Vasculature: Minimal atherosclerotic disease of intracranial arteries. Sinuses: No acute sinusitis. Mastoid air cells: No mastoid effusion. Orbits: Unremarkable as visualized. Sella: Enlarged sella with CSF density and flattening of pituitary gland. IMPRESSION: 1. No definite acute intracranial abnormality. 2. Incidental/non-acute findings are described above.
[2017-10-22 04:31] VITALS: BMI 38.3
[2017-10-22] MEDS ORDERED: Pantoprazole 40 mg EC Tab PO SCH (06:00)
[2017-10-22 06:28] LABS: BASO # 0.01 K/mm3 (0.0-2.0); BASO % 0.2 % (0.0-3.0); EOS # 0.2 (0.0-0.7); EOS % 3.4 % (1.5-5.0); GRAN # 3.26 (1.4-6.5); GRAN % 55.2 % (50.0-68.0); HEMOGLOBIN 10.9 g/dL (12.0-16.0); LYMPH # 1.8 (1.2-3.4); LYMPH % 30.5 % (22.0-35.0); MEAN CELL VOLUME 92.1 fl (80.0-105.0); MEAN CORPUSCULAR HEMOGLOBIN 29.8 pg (25.0-35.0); MEAN CORPUSCULAR HGB CONC 32.3 g/dl (31.0-37.0); MEAN PLATELET VOLUME 9.5 fl (7.0-11.0); MONO # 0.6 (0.1-0.6); MONO % 10.7 % (1.0-6.0); RBC 3.66 10^6/uL (3.5-6.1); RED CELL DISTRIBUTION WIDTH 15.1 % (11.5-14.5); WHITE BLOOD COUNT 5.9 10^3/ul (4.5-11.0)
[2017-10-22 07:20] LABS: ALB/GLOB RATIO 1.3 (1.1-1.8); ALBUMIN 3.8 g/dL (3.0-4.8); ALT/SGPT 34 U/L (7-56); AST/SGOT 52 U/L (14-36); BLOOD UREA NITROGEN 17 mg/dL (7-21); CALCIUM 8.9 mg/dL (8.4-10.5); GFR AFRICAN-AMERICAN > 60; GFR NON-AFRICAN AMERICAN 56
--- NOTE | 2017-10-22 08:09 | CP.PCM.CON ---
History of Present Illness - History of Present Illness History of Present Illness: Neuro Consult note for Dr. Cárdenas 62yo female PMHx Protein C deficiency, asthma, HLD, HTN, atrial fibrillation, DVT with IVC filter, previous CVA, and warfarin induced necrosis with subsequent b/l partial masctectomy and bilateral fourth digit amputation presents for confusion and generalized weakness. Patient reports that the night of admission she "couldn't recognize people" and would stare blankly at her friends. She reported her confusion improved and cleared up in the ER after she received D50. Patient reported that at home she was unable to hold conversations and was getting confused easily. She also admitted to vertigo sensation and feeling like everything around her was spinning. She admitted to a slight headache but denied any LOC, trauma, fall, hitting her head. She also denied any fever, chills, chest pain, palpitations, SOB, cough, abd pain, nausea , vomiting, bowel/bladder complaints, pain/swelling in her legs b/l. During the interview patient reported she felt like she was "fazing out and coming back." Of note patient abruptly stopped taking her neurontin for 2 weeks and also took Topamax once over the past few days for a migraine. PMHx: Protein C deficiency, asthma, HLD, HTN, atrial fibrillation, DVT with IVC filter, previous CVA, and warfarin induced necrosis with subsequent b/l partial masctectomy and bilateral fourth digit amputation PSurgHx: Tonsillectomy, double mastectomy, bilateral fourth digit amputation, gastric bypass ALL: PCN FamHx: Extensive family history of cancer. Mom: Breast Ca, Dad: metastatic cancer, unknown SocHx: Denies tobacco, alcohol or illicit drug use; ambulates with cane Meds: As per JUL PMD: Payal Past Patient History - Infectious Disease Hx of Infectious Diseases: None - Tetanus Immunizations Tetanus Immunization: Unknown - Past Medical History & Family History Past Medical History?: Yes - Past Social History Smoking Status: Never Smoked - CARDIAC Hx Hypertension: Yes - PULMONARY Hx Respiratory Disorders: Yes Hx Asthma: Yes Hx Bronchitis: No Hx Chronic Obstructive Pulmonary Disease (COPD): No Hx Emphysema: No Hx Pneumonia: Yes Hx Respiratory Aspiration: No Hx Respiratory Tract Infection: No Hx Sleep Apnea: No Hx Tuberculosis: No - NEUROLOGICAL HX Cerebrovascular Accident: Yes - HEENT Hx HEENT Problems: Yes Hx Blind: Yes Hx Cataracts: No Hx Deafness: No Hx Difficulty Chewing: No Hx Epistaxis: No Hx Glaucoma: No Hx Macular Degeneration: No Other/Comment: Tonsillectomy - RENAL Hx Renal Failure: Yes - ENDOCRINE/METABOLIC Hx Endocrine Disorders: No Hx Adrenal Cancer: No Hx Diabetes Insipidus: No Hx Diabetes Mellitus Type 1: No Hx Diabetes Mellitus Type 2: No Hx Hyperthyroidism: No Hx Hypothyroidism: No Hx Systemic Lupus Erythematosus: No - HEMATOLOGICAL/ONCOLOGICAL Hx Blood Transfusions: Yes Hx Blood Transfusion Reaction: No - INTEGUMENTARY Hx Dermatological Problems: No Hx Basil Cell: No Hx Eczema: No Hx Melanoma: No Hx Psoriasis: No Hx Squamous Cell: No - MUSCULOSKELETAL/RHEUMATOLOGICAL Hx Arthritis: Yes - GASTROINTESTINAL Hx Gastrointestinal Disorders: Yes Hx Colostomy: No Hx Crohn's Disease: No Hx Diverticulitis: No Hx Gall Bladder Disease: Yes Hx Gastroesophageal Reflux: Yes Hx Ileostomy: No Hx Liver Failure: No Hx Pancreatitis: No HX Swallowing Problems: No Other/Comment: Gastric Bypass Surgery. Appetite Changes. Weight Loss. - GENITOURINARY/GYNECOLOGICAL Hx Genitourinary Disorders: No Hx Hematuria: No Hx Incontinence: No Hx Sexually Transmitted Disorders: No Hx Urinary Tract Infection: Yes - PSYCHIATRIC Hx Psychophysiologic Disorder: No Hx Anxiety: No Hx Bipolar Disorder: No Hx Depression: No Hx Emotional Abuse: No Hx Hallucinations: No Hx Panic Symptoms: No Hx Post Traumatic Stress Disorder: No Hx Psychosis: No Hx Physical Abuse: No Hx Schizophrenia: No Hx Sexual Abuse: No Hx Substance Use: No - SURGICAL HISTORY Hx Mastectomy: No - ANESTHESIA Hx Anesthesia Reactions: No Hx Malignant Hyperthermia: No Meds Allergies/Adverse Reactions: Allergies Allergy/AdvReac Type Severity Reaction Status Date / Time Penicillins Allergy ANGIOEDEMA/SHORTNESS Verified 08/11/17 14:14 OF BREATH levofloxacin AdvReac VOMITING Verified 08/31/17 08:45 - Medications Medications: Current Medications Apixaban (Eliquis) 5 mg PO BID ALEXI PRN Reason: Protocol Furosemide (Lasix) 40 mg PO DAILY ALEXI Gabapentin (Neurontin) 300 mg PO BID PRN; Protocol PRN Reason: neuropathic pain Sodium Chloride (Sodium Chloride 0.9%) 1,000 mls @ 100 mls/hr IV .Q10H [facility] Metoprolol Tartrate (Lopressor) 25 mg PO BID [facility] Potassium Chloride (K-Dur 20 Meq Er Tab) 20 meq PO 0800 ALEXI Physical Exam - Constitutional Appears: No Acute Distress - Head Exam Head Exam: ATRAUMATIC, NORMAL INSPECTION, NORMOCEPHALIC - Eye Exam Eye Exam: EOMI, Normal appearance, PERRL. absent: Conjunctival injection, Scleral icterus - ENT Exam ENT Exam: Mucous Membranes Moist - Neck Exam Neck exam: Positive for: Full Rom - Respiratory Exam Respiratory Exam: NORMAL BREATHING PATTERN. absent: Accessory Muscle Use, Respiratory Distress - Cardiovascular Exam Cardiovascular Exam: +S1, +S2 - Neurological Exam Neurological exam: Alert, CN II-XII Intact, Oriented x3 - Psychiatric Exam Psychiatric exam: Anxious - Skin Skin Exam: Dry, Intact Results - Vital Signs Recent Vital Signs: Last Vital Signs Temp 981 F H 10/22/17 03:17 Pulse 79 10/22/17 06:00 Resp 18 10/22/17 03:17 BP 134/80 10/22/17 03:17 Pulse Ox 97 10/22/17 03:17 - Labs Result Diagrams: 10/22/17 06:00 10/22/17 06:00 Labs: Laboratory Results - last 24 hr 10/22/17 10/22/17 10/22/17 02:51 02:51 05:59 WBC RBC Hgb Hct MCV MCH MCHC RDW Plt Count MPV Gran % Lymph % (Auto) [place] % (Auto) Eos % (Auto) Baso % (Auto) Gran # Lymph # (Auto) [place] # (Auto) Eos # (Auto) Baso # (Auto) Sodium Potassium Chloride Carbon Dioxide Anion Gap BUN Creatinine Est GFR ( Amer) Est GFR (Non-Af Amer) POC Glucose (mg/dL) 98 Random Glucose Calcium Total Bilirubin AST ALT Alkaline Phosphatase Total Protein Albumin Globulin Albumin/Globulin Ratio Urine Color Yellow Urine Appearance Sl cloudy Urine pH 6.0 Ur Specific [place] 1.015 Urine Protein Negative Urine Glucose (UA) Negative Urine Ketones Negative Urine Blood Negative Urine Nitrate Negative Urine Bilirubin Negative Urine Urobilinogen 0.2 Ur Leukocyte Esterase Small H Urine RBC 0 - 2 Urine WBC 1 - 3 Ur Epithelial Cells 0 - 2 Calcium Oxalate Crystal Few Urine Bacteria Rare Urine Opiates Screen Positive H Urine Methadone Screen Negative Ur Barbiturates Screen Negative Ur Phencyclidine Scrn Negative Ur Amphetamines Screen Negative U Benzodiazepines Scrn Negative U Oth Cocaine Metabols Negative U Cannabinoids Screen Negative 10/22/17 10/22/1710/22/18 06:00 06:00 07:20 WBC 5.9 RBC 3.66 Hgb 10.9 L Hct 33.7 L MCV 92.1 MCH 29.8 MCHC 32.3 RDW 15.1 H Plt Count 218 MPV 9.5 Gran % 55.2 Lymph % (Auto) 30.5 [place] % (Auto) 10.7 H Eos % (Auto) 3.4 Baso % (Auto) 0.2 Gran # 3.26 Lymph # (Auto) 1.8 [place] # (Auto) 0.6 Eos # (Auto) 0.2 Baso # (Auto) 0.01 Sodium 141 Potassium 3.7 Chloride 109 H Carbon Dioxide 18 L Anion Gap 17 BUN 17 Creatinine 1.0 Est GFR ( Amer) > 60 Est GFR (Non-Af Amer) 56 POC Glucose (mg/dL) 94 Random Glucose 95 Calcium 8.9 Total Bilirubin 0.5 AST 52 H ALT 34 Alkaline Phosphatase 74 Total Protein 6.8 Albumin 3.8 Globulin 2.9 Albumin/Globulin Ratio 1.3 Urine Color Urine Appearance Urine pH Ur Specific [place] Urine Protein Urine Glucose (UA) Urine Ketones Urine Blood Urine Nitrate Urine Bilirubin Urine Urobilinogen Ur Leukocyte Esterase Urine RBC Urine WBC Ur Epithelial Cells Calcium Oxalate Crystal Urine Bacteria Urine Opiates Screen Urine Methadone Screen Ur Barbiturates Screen Ur Phencyclidine Scrn Ur Amphetamines Screen U Benzodiazepines Scrn U Oth Cocaine Metabols U Cannabinoids Screen Assessment & Plan - Assessment and Plan (Free Text) Assessment: 62yo female PMHx Protein C deficiency, asthma, HLD, HTN, atrial fibrillation, DVT with IVC filter, previous CVA, and warfarin induced necrosis with subsequent b/l partial masctectomy and bilateral fourth digit amputation presents for confusion and generalized weakness Plan: -f/u MRI brain -f/u EEG -Head CT: negative -start patient on Depakote XR qhs Discussed with Dr. Melia Tucker PGY2
--- NOTE | 2017-10-22 08:16 | RAD ---
HISTORY: repositioned right IJ TLC COMPARISON: 10/22/2017 at 12:10 a.m. FINDINGS: LUNGS: No active pulmonary disease. PLEURA: No significant pleural effusion identified, no pneumothorax apparent. CARDIOVASCULAR: Repositioned right subclavian central venous catheter extends to the right atrium. OSSEOUS STRUCTURES: No significant abnormalities. VISUALIZED UPPER ABDOMEN: Normal. OTHER FINDINGS: None. IMPRESSION: Central venous catheter tip in right atrium. Otherwise unremarkable. No pneumothorax.
--- NOTE | 2017-10-22 08:17 | RAD ---
HISTORY: central line COMPARISON: 08/26/2019 FINDINGS: LUNGS: No active pulmonary disease. PLEURA: No significant pleural effusion identified, no pneumothorax apparent. CARDIOVASCULAR: Right multi lumen central venous catheter terminating in region of the right atrium. OSSEOUS STRUCTURES: Calcific tendinitis of right shoulder. VISUALIZED UPPER ABDOMEN: Normal. OTHER FINDINGS: None. IMPRESSION: Right multi lumen central venous catheter. No pneumothorax.
--- NOTE | 2017-10-22 08:58 | CARD ---
APPROVED REPORT EKG Measurement Heart [id number] <Conclusion> Sinus tachycardia Possible Left atrial enlargement Left Ant.Nitesh-Block.
[2017-10-22] MEDS: Potassium Chloride 20 mEq ER Tab PO SCH (09:02)
--- NOTE | 2017-10-22 14:21 | CT ---
PROCEDURE: CT Abdomen with and without intravenous contrast HISTORY: R/o pancretic mass, insulinoma, COMPARISON: 08/27/2017 CT TECHNIQUE: Axial images of the abdomen were obtained in the pre contrast, portal venous and delayed phases of enhancement. Coronal and sagittal reformats were generated. Contrast dose: 150 cc of Omni 350 Radiation dose: Total exam DLP = 17 80 mGy-cm. This CT exam was performed using one or more of the following dose reduction techniques: Automated exposure control, adjustment of the mA and/or kV according to patient size, and/or use of iterative reconstruction technique. FINDINGS: LOWER THORAX: Unremarkable. LIVER: Unremarkable. No gross lesion or ductal dilatation. GALLBLADDER AND BILE DUCTS: The common duct measures 8 mm in diameter. There are no stones visualized PANCREAS: There is pancreatic atrophy with dilatation of the pancreatic duct. There is no evidence of a pancreatic mass. The pancreatic duct empties below the common duct. This represents a normal variation. SPLEEN: Unremarkable. ADRENALS: Unremarkable. No mass. KIDNEYS AND URETERS: Unremarkable. No hydronephrosis. No solid mass. VASCULATURE: Unremarkable. No aortic aneurysm. A caval filter is seen BOWEL: Unremarkable. No obstruction. No gross mural thickening. PERITONEUM: Unremarkable. No free fluid. No free air. LYMPH NODES: Unremarkable. No enlarged lymph nodes. BONES: No acute fracture. OTHER FINDINGS: None. IMPRESSION: Severe pancreatic atrophy with dilatation of the pancreatic duct. No evidence of mass.
[2017-10-22] MEDS ORDERED: oxyCODONE 30 mg Immediate Release Tab PO STA (15:07)
--- NOTE | 2017-10-22 17:34 | MRI ---
PROCEDURE: MRI BRAIN WITHOUT CONTRAST HISTORY: confusion COMPARISON: None. TECHNIQUE: Multiplanar, multisequence MR images of the brain were obtained without intravenous contrast enhancement. FINDINGS: HEMORRHAGE: None DWI: No evidence of an acute or early subacute infarction. BRAIN PARENCHYMA: There are mild chronic microangiopathic changes. There is no mass, mass effect or abnormal extra-axial fluid collection. There is no territorial infarction. There is a partially empty sella, otherwise the midline sagittal structures are normal. VENTRICLES: There is mild age-related global parenchymal volume loss and proportionate enlargement of the ventricles and cortical sulci. CRANIUM: There is normal bone marrow signal pattern. ORBITS: Grossly unremarkable. PARANASAL SINUSES/MASTOIDS: Predominantly clear. VASCULAR SYSTEM: There are normal signal voids in the larger intracranial arteries. OTHER FINDINGS: None. IMPRESSION: No acute intracranial abnormality. Mild age-related global parenchymal volume loss. Partially empty sella.
[2017-10-22] MEDS: Divalproex 500 mg ER (ONCE DAILY formulation) PO SCH (22:00)
[2017-10-23] MEDS: oxyCODONE 30 mg Immediate Release Tab PO PRN ×3 (01:35→17:50)
[2017-10-23 06:43] LABS: BASO # 0.01 K/mm3 (0.0-2.0); BASO % 0.2 % (0.0-3.0); EOS # 0.2 (0.0-0.7); EOS % 3.7 % (1.5-5.0); GRAN # 1.75 (1.4-6.5); GRAN % 38.2 % (50.0-68.0); HEMOGLOBIN 9.7 g/dL (12.0-16.0); LYMPH # 2.1 (1.2-3.4); LYMPH % 46.4 % (22.0-35.0); MEAN CELL VOLUME 91.3 fl (80.0-105.0); MEAN CORPUSCULAR HEMOGLOBIN 29.2 pg (25.0-35.0); MEAN PLATELET VOLUME 9.4 fl (7.0-11.0); MONO # 0.5 (0.1-0.6); MONO % 11.5 % (1.0-6.0); RBC 3.32 10^6/uL (3.5-6.1); RED CELL DISTRIBUTION WIDTH 14.8 % (11.5-14.5); WHITE BLOOD COUNT 4.6 10^3/ul (4.5-11.0)
[2017-10-23 07:15] LABS: ALB/GLOB RATIO 1.2 (1.1-1.8); ALBUMIN 3.3 g/dL (3.0-4.8); ALT/SGPT 144 U/L (7-56); AST/SGOT 234 U/L (14-36); BLOOD UREA NITROGEN 14 mg/dL (7-21); CALCIUM 8.8 mg/dL (8.4-10.5); GFR AFRICAN-AMERICAN > 60; GFR NON-AFRICAN AMERICAN 56
[2017-10-23 08:19] VITALS: RESP 20; TEMP 98; O2SAT 99
[2017-10-23] MEDS: Potassium Chloride 20 mEq ER Tab PO SCH (08:19)
--- NOTE | 2017-10-23 08:41 | CP.PCM.PN ---
Subjective - Date & Time of Evaluation Date of Evaluation: 10/23/17 Time of Evaluation: 08:00 - Subjective Subjective: Neuro progress note for Dr. Cárdenas Patient seen and examined sitting up in bed resting comfortably. Nursing reported no acute events overnight. Patient reported she was unable to sleep well as it was loud and she said she felt confused today and had a slight headache. Otherwise she denied acute complaints of fever, chills, dizziness, chest pain, palpitations, SOB, cough, abd pain, nausea, vomiting, bowel/bladder complaints, swelling in her legs b/l. Patient continues to complain of pain in her RLE. Objective - Vital Signs/Intake and Output Vital Signs (last 24 hours): Temp Pulse Resp BP Pulse Ox 98 F 68 20 101/60 99 10/23/17 08:19 10/23/17 08:19 10/23/17 08:19 10/23/17 08:19 10/23/17 08:19 Intake and Output: 10/23/17 10/23/17 06:59 18:59 Intake Total 420 240 Balance 420 240 - Medications Medications: Current Medications Apixaban (Eliquis) 5 mg PO BID [facility] PRN Reason: Protocol Last Admin: 10/22/17 17:13 Dose: 5 mg Divalproex Sodium (Depakote Er(Once Daily)) 500 mg PO [facility] PRN Reason: Protocol Last Admin: 10/22/17 22:00 Dose: 500 mg Furosemide (Lasix) 40 mg PO DAILY [facility] Last Admin: 10/22/17 09:03 Dose: 40 mg Gabapentin (Neurontin) 300 mg PO BID PRN; Protocol PRN Reason: neuropathic pain Sodium Chloride (Sodium Chloride 0.9%) 1,000 mls @ 100 mls/hr IV .Q10H [facility] Metoprolol Tartrate (Lopressor) 25 mg PO BID [facility] Last Admin: 10/22/17 17:13 Dose: 25 mg Oxycodone HCl (Oxycodone Immediate Release Tab) 30 mg PO TID PRN PRN Reason: Pain, severe (8-10) Last Admin: 10/23/17 01:35 Dose: 30 mg Potassium Chloride (K-Dur 20 Meq Er Tab) 20 meq PO 0800 [facility] Last Admin: 10/23/17 08:19 Dose: 20 meq - Labs Labs: 10/23/17 06:00 10/23/17 06:00 PT 14.0 SECONDS (9.4-12.5) H 10/22/17 01:08 INR 1.22 (0.93-1.08) H 10/22/17 01:08 APTT 24.7 Seconds (25.1-36.5) L 10/22/17 01:08 - Constitutional Appears: Non-toxic, No Acute Distress - Head Exam Head Exam: ATRAUMATIC, NORMAL INSPECTION, NORMOCEPHALIC - Eye Exam Eye Exam: EOMI, Normal appearance, PERRL. absent: Conjunctival injection, Scleral icterus Pupil Exam: NORMAL ACCOMODATION - ENT Exam ENT Exam: Mucous Membranes Moist - Respiratory Exam Respiratory Exam: NORMAL BREATHING PATTERN. 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 Cárdenas upon discharge Discussed with Dr. Melia Tucker PGY2
[2017-10-23] MEDS: Tmp-Smz 800 mg-160 mg DS Tab PO SCH ×2 (10:22→17:21)
--- NOTE | 2017-10-23 11:41 | CP.PCM.PN ---
Subjective - Date & Time of Evaluation Date of Evaluation: 10/23/17 Time of Evaluation: 11:34 - Subjective Subjective: Patient seen and examined at bedside. Doing well with no complaints at this time. Ambulating without difficulty with PT. No fevers chills dizziness, nausea or vomiting. Objective - Vital Signs/Intake and Output Vital Signs (last 24 hours): Temp Pulse Resp BP Pulse Ox 98 F 70 20 100/60 99 10/23/17 08:19 10/23/17 10:22 10/23/17 08:19 10/23/17 10:22 10/23/17 08:19 Intake and Output: 10/23/17 10/23/17 06:59 18:59 Intake Total 420 240 Balance 420 240 - Medications Medications: Current Medications Apixaban (Eliquis) 5 mg PO BID [facility] PRN Reason: Protocol Last Admin: 10/23/17 10:22 Dose: 5 mg Divalproex Sodium (Depakote Er(Once Daily)) 500 mg PO HS [facility] PRN Reason: Protocol Last Admin: 10/22/17 22:00 Dose: 500 mg Furosemide (Lasix) 40 mg PO DAILY [facility] Last Admin: 10/23/17 10:22 Dose: 40 mg Gabapentin (Neurontin) 300 mg PO BID PRN; Protocol PRN Reason: neuropathic pain Sodium Chloride (Sodium Chloride 0.9%) 1,000 mls @ 100 mls/hr IV .Q10H [facility] Metoprolol Tartrate (Lopressor) 25 mg PO BID [facility] Last Admin: 10/23/17 10:22 Dose: 25 mg Oxycodone HCl (Oxycodone Immediate Release Tab) 30 mg PO TID PRN PRN Reason: Pain, severe (8-10) Last Admin: 10/23/17 10:21 Dose: 30 mg Potassium Chloride (K-Dur 20 Meq Er Tab) 20 meq PO 0800 [facility] Last Admin: 10/23/17 08:19 Dose: 20 meq Trimethoprim/Sulfamethoxazole (Bactrim Ds Tab) 1 tab PO BID [facility] PRN Reason: Protocol Last Admin: 10/23/17 10:22 Dose: 1 tab - Labs Labs: 10/23/17 06:00 10/23/17 06:00 PT 14.0 SECONDS (9.4-12.5) H 10/22/17 01:08 INR 1.22 (0.93-1.08) H 10/22/17 01:08 APTT 24.7 Seconds (25.1-36.5) L 10/22/17 01:08 - Constitutional Appears: Well - Head Exam Head Exam: ATRAUMATIC, NORMAL INSPECTION, NORMOCEPHALIC - Eye Exam Eye Exam: EOMI, Normal appearance, PERRL Pupil Exam: NORMAL ACCOMODATION, PERRL - ENT Exam ENT Exam: Mucous Membranes Moist, Normal Exam - Neck Exam Neck Exam: Full ROM, Normal Inspection. absent: Lymphadenopathy - Respiratory Exam Respiratory Exam: Clear to Ausculation Bilateral, NORMAL BREATHING PATTERN - Cardiovascular Exam Cardiovascular Exam: REGULAR RHYTHM, +S1, +S2. absent: Murmur - GI/Abdominal Exam GI & Abdominal Exam: Soft, Normal Bowel Sounds. absent: Tenderness - Extremities Exam Extremities Exam: Full ROM, Normal Capillary Refill, Normal Inspection. absent : Joint Swelling, Pedal Edema - Back Exam Back Exam: NORMAL INSPECTION - Neurological Exam Neurological Exam: Alert, Awake, CN II-XII Intact, Normal Gait, Oriented x3 - Psychiatric Exam Psychiatric exam: Normal Affect, Normal Mood - Skin Skin Exam: Dry, Intact, Normal Color, Warm Assessment and Plan (1) Hypoglycemia, unspecified Assessment & Plan: currently has resolved Checked for proinsulin, cpeptide, insulin, sulf AM cortisol 3.7 Needs to follow up with Endo as outpatient. Will provide her with Dr. Bo's information. ct head negative brain MRI negative EEG pending Pancreatic CT shows severe atrophy, no mass Status: Resolved (2) UTI (urinary tract infection) Assessment & Plan: UA shows small LE UC grew gram negative rods and gram + cocci allergic to levofloxacin and PCN so will start Bactrim Will follow up final cultures Status: Acute (3) A-fib Assessment & Plan: echo - f/u on eliquis rate controlled Status: Chronic - Assessment and Plan (Free Text) Assessment: PT reccs home with services but the patient already has these available. Will reach out to social work to make sure No need for GI PPX
[2017-10-23 12:41] LABS: HEPATITIS B SURFACE AG Negative (NEGATIVE)
[2017-10-23 12:47] LABS: HEPATITIS A IGM NEGATIVE (NEGATIVE); HEPATITIS B CORE AB NEGATIVE (NEGATIVE)
[2017-10-23 12:59] LABS: HEPATITIS C ANTIBODY NEGATIVE (NEGATIVE)
[2017-10-23 13:08] LABS: C-PEPTIDE 2.14 ng/mL (0.80-3.85)
[2017-10-23] MEDS: Divalproex 500 mg ER (ONCE DAILY formulation) PO SCH (21:48)
[2017-10-24] MEDS: oxyCODONE 30 mg Immediate Release Tab PO PRN ×2 (02:21→10:14)
[2017-10-24 08:55] LABS: BASO # 0.03 K/mm3 (0.0-2.0); BASO % 0.6 % (0.0-3.0); EOS # 0.2 (0.0-0.7); EOS % 4.3 % (1.5-5.0); GRAN # 2.02 (1.4-6.5); GRAN % 43.2 % (50.0-68.0); HEMOGLOBIN 11.1 g/dL (12.0-16.0); LYMPH % 43.6 % (22.0-35.0); MEAN CELL VOLUME 89.7 fl (80.0-105.0); MEAN CORPUSCULAR HGB CONC 33.4 g/dl (31.0-37.0); MEAN PLATELET VOLUME 9.2 fl (7.0-11.0); MONO # 0.4 (0.1-0.6); MONO % 8.3 % (1.0-6.0); RBC 3.7 10^6/uL (3.5-6.1); RED CELL DISTRIBUTION WIDTH 14.7 % (11.5-14.5); WHITE BLOOD COUNT 4.7 10^3/ul (4.5-11.0)
[2017-10-24] MEDS: Potassium Chloride 20 mEq ER Tab PO SCH (08:59)
[2017-10-24 09:04] LABS: ALB/GLOB RATIO 1.3 (1.1-1.8); ALBUMIN 3.9 g/dL (3.0-4.8); ALT/SGPT 160 U/L (7-56); AST/SGOT 192 U/L (14-36); BLOOD UREA NITROGEN 16 mg/dL (7-21); CALCIUM 9.1 mg/dL (8.4-10.5); GFR AFRICAN-AMERICAN > 60; GFR NON-AFRICAN AMERICAN 56
[2017-10-24] MEDS: Tmp-Smz 800 mg-160 mg DS Tab PO SCH (09:23)
[2017-10-24 09:26] VITALS: BP 107/53; PULSE 75
--- NOTE | 2017-10-24 13:58 | CP.PCM.DIS ---
<Kalpesh Schneider - Last Filed: 10/24/17 18:12> Provider - Provider Date of Admission: 10/22/17 15:43 Attending physician: Kathe Garcia MD Primary care physician: Ozzy Celestin Consults: Neuro: Josieya Time Spent in preparation of Discharge (in minutes): 45 Diagnosis - Discharge Diagnosis (1) Hypoglycemia, unspecified Status: Resolved (2) UTI (urinary tract infection) Status: Acute (3) A-fib Status: Chronic Hospital Course - Lab Results Lab Results: Most Recent Lab Values WBC 4.7 10^3/ul (4.5-11.0) 10/24/17 08:44 RBC 3.70 10^6/uL (3.5-6.1) 10/24/17 08:44 Hgb 11.1 g/dL (12.0-16.0) L 10/24/17 08:44 Hct 33.2 % (36.0-48.0) L 10/24/17 08:44 MCV 89.7 fl (80.0-105.0) 10/24/17 08:44 MCH 30.0 pg (25.0-35.0) 10/24/17 08:44 MCHC 33.4 g/dl (31.0-37.0) 10/24/17 08:44 RDW 14.7 % (11.5-14.5) H 10/24/17 08:44 Plt Count 224 10^3/uL (120.0-450.0) 10/24/17 08:44 MPV 9.2 fl (7.0-11.0) 10/24/17 08:44 Gran % 43.2 % (50.0-68.0) L 10/24/17 08:44 Lymph % (Auto) 43.6 % (22.0-35.0) H 10/24/17 08:44 [place] % (Auto) 8.3 % (1.0-6.0) H 10/24/17 08:44 Eos % (Auto) 4.3 % (1.5-5.0) 10/24/17 08:44 Baso % (Auto) 0.6 % (0.0-3.0) 10/24/17 08:44 Gran # 2.02 (1.4-6.5) 10/24/17 08:44 Lymph # (Auto) 2.0 (1.2-3.4) 10/24/17 08:44 [place] # (Auto) 0.4 (0.1-0.6) 10/24/17 08:44 Eos # (Auto) 0.2 (0.0-0.7) 10/24/17 08:44 Baso # (Auto) 0.03 K/mm3 (0.0-2.0) 10/24/17 08:44 PT 14.0 SECONDS (9.4-12.5) H 10/22/17 01:08 INR 1.22 (0.93-1.08) H 10/22/17 01:08 APTT 24.7 Seconds (25.1-36.5) L 10/22/17 01:08 Sodium 141 mmol/L (132-148) 10/24/17 08:44 Potassium 3.4 mmol/L (3.6-5.0) L 10/24/17 08:44 Chloride 106 mmol/L (98-107) 10/24/17 08:44 Carbon Dioxide 22 mmol/L (21-33) 10/24/17 08:44 Anion Gap 16 (10-20) 10/24/17 08:44 BUN 16 mg/dL (7-21) 10/24/17 08:44 Creatinine 1.0 mg/dl (0.7-1.2) 10/24/17 08:44 Est GFR ( Amer) > 60 10/24/17 08:44 Est GFR (Non-Af Amer) 56 10/24/17 08:44 POC Glucose (mg/dL) 74 mg/dL (65-110) 10/24/17 11:35 Random Glucose 100 mg/dL (70-110) 10/24/17 08:44 Insulin Level 8.9 uIU/mL (2.0-19.6) 10/22/17 11:41 C-Peptide 2.14 ng/mL (0.80-3.85) 10/22/17 11:41 Calcium 9.1 mg/dL (8.4-10.5) 10/24/17 08:44 Phosphorus 4.5 mg/dL (2.5-4.5) 10/22/17 01:08 Magnesium 2.0 mg/dL (1.7-2.2) 10/22/17 01:08 Total Bilirubin 0.3 mg/dL (0.2-1.3) 10/24/17 08:44 GGT 151 U/L (8-78) H 10/23/17 06:00 AST 192 U/L (14-36) H 10/24/17 08:44 ALT 160 U/L (7-56) H 10/24/17 08:44 Alkaline Phosphatase 111 U/L (38-126) 10/24/17 08:44 Lactate Dehydrogenase 534 U/L (333-699) 10/22/17 01:08 Total Creatine Kinase 113 U/L (35-230) 10/22/17 01:08 Troponin I 0.03 ng/mL D 10/22/17 01:08 Total Protein 7.0 g/dL (5.8-8.3) 10/24/17 08:44 Albumin 3.9 g/dL (3.0-4.8) 10/24/17 08:44 Globulin 3.1 gm/dL 10/24/17 08:44 Albumin/Globulin Ratio 1.3 (1.1-1.8) 10/24/17 08:44 Vitamin B12 304 pg/mL (239-931) 10/22/17 06:00 25-OH Vitamin D Total 26.4 NG/ML (30.0-100.0) L 10/22/17 05:30 Folate 20.0 ng/mL 10/22/17 06:00 Cortisol AM Sample 3.6 ug/dL (4.46-22.7) L 10/23/17 05:40 Urine Color Yellow (YELLOW) 10/22/17 02:51 Urine Appearance Sl cloudy (CLEAR) 10/22/17 02:51 Urine pH 6.0 (4.7-8.0) 10/22/17 02:51 Ur Specific [place] 1.015 (1.005-1.035) 10/22/17 02:51 Urine Protein Negative mg/dL (<30 mg/dL) 10/22/17 02:51 Urine Glucose (UA) Negative mg/dL (NEGATIVE) 10/22/17 02:51 Urine Ketones Negative mg/dL (NEGATIVE) 10/22/17 02:51 Urine Blood Negative (NEGATIVE) 10/22/17 02:51 Urine Nitrate Negative (NEGATIVE) 10/22/17 02:51 Urine Bilirubin Negative (NEGATIVE) 10/22/17 02:51 Urine Urobilinogen 0.2 E.U./dL (<1 E.U./dL) 10/22/17 02:51 Ur Leukocyte Esterase Small Zheng/uL (NEGATIVE) H 10/22/17 02:51 Urine RBC 0 - 2 /hpf (0-2) 10/22/17 02:51 Urine WBC 1 - 3 /hpf (0-6) 10/22/17 02:51 Ur Epithelial Cells 0 - 2 /hpf (0-5) 10/22/17 02:51 Calcium Oxalate Crystal Few /hpf 10/22/17 02:51 Urine Bacteria Rare (NEG) 10/22/17 02:51 Urine Opiates Screen Positive (NEGATIVE) H 10/22/17 02:51 Urine Methadone Screen Negative (NEGATIVE) 10/22/17 02:51 Acetaminophen < 10.0 ug/ml (10.0-20.0) L 10/22/17 01:08 Ur Barbiturates Screen Negative (NEGATIVE) 10/22/17 02:51 Ur Phencyclidine Scrn Negative (NEGATIVE) 10/22/17 02:51 Ur Amphetamines Screen Negative (NEGATIVE) 10/22/17 02:51 U Benzodiazepines Scrn Negative (NEGATIVE) 10/22/17 02:51 U Oth Cocaine Metabols Negative (NEGATIVE) 10/22/17 02:51 U Cannabinoids Screen Negative (NEGATIVE) 10/22/17 02:51 Alcohol, Quantitative < 10 mg/dL (0-10) 10/23/17 08:25 Hepatitis A IgM Ab Negative (NEGATIVE) 10/23/17 06:00 Hep Bs Antigen Negative (NEGATIVE) 10/23/17 06:00 Hep B Core IgM Ab Negative (NEGATIVE) 10/23/17 06:00 Hepatitis C Antibody Negative (NEGATIVE) 10/23/17 06:00 - Hospital Course Hospital Course: On admission: 62 year old female with a past medical history of Protein C deficiency, asthma, dyslipidemia, hypertension, atrial fibrillation, DVT with IVC filter, previous CVA, and 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 She was brought in via EMS and was found to have a BG level of 49 and difficult venous access requiring central line placement. Medicine was consulted for altered mental status. The patient was given an ampule of D50 and her potassium was repleted orally. At the time of my encounter, the patient reports not eating today, which she often does, and falling asleep on her bed. She is unable to provide a timeline. She reports waking up in an angry mood; distraught. A friend of hers, Oracio, she reports, was somehow able to called EMS. She complains specifically of an inability to move her legs, though after slight massage of her legs she is able to get out of the bed, ambulate in front of the ED staff, go to the restroom, and urinate in a cup. She denies dysuria, cough, fever, chest pain, palpitations, dyspnea, unilateral weakness or numbness, headache, visual disturbances, melena, hematochezia, or night sweats. She is able to recall that she was ambulating fine earlier today; that she also out with friends today. Vital signs were stable, though she was in atrial fibrillation on the monitor. She reports a history of paroxysmal atrial fibrillation. Hospital course: Her blood glucose was stable for the remainder of the admission. A complete workup for hypoglycemia in the non diabetic was ordered. She was instructed to follow up that workup with her primary doctor. She was found to have a UTI that may have contributed to her low sugar and brief AMS. She was treated with antibiotics here and will continue as an outpatient. She was seen by neuro who ordered EEG and MRI. EEG was not read but patient will follow up with Dr. Cárdenas for the result. The MRI of the brain was unremarkable. Her weakness did resolve and she was able to ambulate without difficulty with Physical therapy. PT reccs where home with services. The patient states she already has home PT services. Neuro started the patient on Depakote but due to a rise in her LFTs the drug was stopped. She instructed to have her LFTs checked as an outpatient to ensure they return back to baseline. Patient was stable prior to discharge. Discharge Exam - Head Exam Head Exam: ATRAUMATIC, NORMAL INSPECTION, NORMOCEPHALIC - Eye Exam Eye Exam: EOMI, Normal appearance, PERRL Pupil Exam: NORMAL ACCOMODATION, PERRL - Respiratory Exam Respiratory Exam: Clear to PA & Lateral, NORMAL BREATHING PATTERN, UNREMARKABLE. absent: Wheezes, Respiratory Distress - Cardiovascular Exam Cardiovascular Exam: REGULAR RHYTHM. absent: Tachycardia - GI/Abdominal Exam GI & Abdominal Exam: Normal Bowel Sounds, Soft, Unremarkable. absent: Distended , Tenderness - Extremities Exam Additional comments: s/p partial amputation of the 4th finger b/l - Neurological Exam Neurological exam: Alert, CN II-XII Intact, Oriented x3 - Psychiatric Exam Psychiatric exam: Normal Affect, Normal Mood - Skin Skin Exam: Dry, Intact, Normal Color, Warm Discharge Plan - Discharge Medications Prescriptions: Sulfamethoxazole/Trimethoprim [Bactrim DS Tab] 1 tab PO BID 1 Days tab - Follow Up Plan Condition: FAIR Disposition: HOME/ ROUTINE Instructions: Atrial Fibrillation (DC), Low Blood Sugar, Adult (DC), Altered Mental Status (DC), Urinary Tract Infection in Women (DC) Additional Instructions: Please follow up with your primary care provider in 7-10 days so they can review the results of your blood tests for hypoglycemia. Please also have your liver enzymes checked at this time to ensure they are trending down. Please follow up with Dr. Cárdenas in his office as we needed to stop the Depakote for rising liver enzymes. I have attached his office information. Please call to make an appointment. Please do not take any Tylenol Please continue with physical therapy at home. Please take the following medications: 1. Eliquis 5mg by mouth twice per day 2. Lasix 40mg by mouth once per day 3. Neurontin 400mg by mouth three times per day 4. Metoprolol 25mg by mouth twice per day 5. Potassium 20meq once per day 6. Bactrim 1 tablet twice per day for one day Referrals: Ozzy Celestin MD [Primary Care Provider] - Sushant Cárdenas MD [Staff Provider] - <Laura Conley - Last Filed: 10/25/17 10:26> Provider - Provider Date of Admission: 10/22/17 15:43 Attending physician: Kathe Garcia MD Primary care physician: Ozzy Merritthmbhatt [facility] Hospital Course - Lab Results Lab Results: Most Recent Lab Values WBC 4.7 10^3/ul (4.5-11.0) 10/24/17 08:44 RBC 3.70 10^6/uL (3.5-6.1) 10/24/17 08:44 Hgb 11.1 g/dL (12.0-16.0) L 10/24/17 08:44 Hct 33.2 % (36.0-48.0) L 10/24/17 08:44 MCV 89.7 fl (80.0-105.0) 10/24/17 08:44 MCH 30.0 pg (25.0-35.0) 10/24/17 08:44 MCHC 33.4 g/dl (31.0-37.0) 10/24/17 08:44 RDW 14.7 % (11.5-14.5) H 10/24/17 08:44 Plt Count 224 10^3/uL (120.0-450.0) 10/24/17 08:44 MPV 9.2 fl (7.0-11.0) 10/24/17 08:44 Gran % 43.2 % (50.0-68.0) L 10/24/17 08:44 Lymph % (Auto) 43.6 % (22.0-35.0) H 10/24/17 08:44 [place] % (Auto) 8.3 % (1.0-6.0) H 10/24/17 08:44 Eos % (Auto) 4.3 % (1.5-5.0) 10/24/17 08:44 Baso % (Auto) 0.6 % (0.0-3.0) 10/24/17 08:44 Gran # 2.02 (1.4-6.5) 10/24/17 08:44 Lymph # (Auto) 2.0 (1.2-3.4) 10/24/17 08:44 [place] # (Auto) 0.4 (0.1-0.6) 10/24/17 08:44 Eos # (Auto) 0.2 (0.0-0.7) 10/24/17 08:44 Baso # (Auto) 0.03 K/mm3 (0.0-2.0) 10/24/17 08:44 PT 14.0 SECONDS (9.4-12.5) H 10/22/17 01:08 INR 1.22 (0.93-1.08) H 10/22/17 01:08 APTT 24.7 Seconds (25.1-36.5) L 10/22/17 01:08 Sodium 141 mmol/L (132-148) 10/24/17 08:44 Potassium 3.4 mmol/L (3.6-5.0) L 10/24/17 08:44 Chloride 106 mmol/L (98-107) 10/24/17 08:44 Carbon Dioxide 22 mmol/L (21-33) 10/24/17 08:44 Anion Gap 16 (10-20) 10/24/17 08:44 BUN 16 mg/dL (7-21) 10/24/17 08:44 Creatinine 1.0 mg/dl (0.7-1.2) 10/24/17 08:44 Est GFR ( Amer) > 60 10/24/17 08:44 Est GFR (Non-Af Amer) 56 10/24/17 08:44 POC Glucose (mg/dL) 74 mg/dL (65-110) 10/24/17 11:35 Random Glucose 100 mg/dL (70-110) 10/24/17 08:44 Insulin Level 8.9 uIU/mL (2.0-19.6) 10/22/17 11:41 C-Peptide 2.14 ng/mL (0.80-3.85) 10/22/17 11:41 Calcium 9.1 mg/dL (8.4-10.5) 10/24/17 08:44 Phosphorus 4.5 mg/dL (2.5-4.5) 10/22/17 01:08 Magnesium 2.0 mg/dL (1.7-2.2) 10/22/17 01:08 Total Bilirubin 0.3 mg/dL (0.2-1.3) 10/24/17 08:44 GGT 151 U/L (8-78) H 10/23/17 06:00 AST 192 U/L (14-36) H 10/24/17 08:44 ALT 160 U/L (7-56) H 10/24/17 08:44 Alkaline Phosphatase 111 U/L (38-126) 10/24/17 08:44 Lactate Dehydrogenase 534 U/L (333-699) 10/22/17 01:08 Total Creatine Kinase 113 U/L (35-230) 10/22/17 01:08 Troponin I 0.03 ng/mL D 10/22/17 01:08 Total Protein 7.0 g/dL (5.8-8.3) 10/24/17 08:44 Albumin 3.9 g/dL (3.0-4.8) 10/24/17 08:44 Globulin 3.1 gm/dL 10/24/17 08:44 Albumin/Globulin Ratio 1.3 (1.1-1.8) 10/24/17 08:44 Vitamin B12 304 pg/mL (239-931) 10/22/17 06:00 25-OH Vitamin D Total 26.4 NG/ML (30.0-100.0) L 10/22/17 05:30 Folate 20.0 ng/mL 10/22/17 06:00 Cortisol AM Sample 3.6 ug/dL (4.46-22.7) L 10/23/17 05:40 Urine Color Yellow (YELLOW) 10/22/17 02:51 Urine Appearance Sl cloudy (CLEAR) 10/22/17 02:51 Urine pH 6.0 (4.7-8.0) 10/22/17 02:51 Ur Specific [place] 1.015 (1.005-1.035) 10/22/17 02:51 Urine Protein Negative mg/dL (<30 mg/dL) 10/22/17 02:51 Urine Glucose (UA) Negative mg/dL (NEGATIVE) 10/22/17 02:51 Urine Ketones Negative mg/dL (NEGATIVE) 10/22/17 02:51 Urine Blood Negative (NEGATIVE) 10/22/17 02:51 Urine Nitrate Negative (NEGATIVE) 10/22/17 02:51 Urine Bilirubin Negative (NEGATIVE) 10/22/17 02:51 Urine Urobilinogen 0.2 E.U./dL (<1 E.U./dL) 10/22/17 02:51 Ur Leukocyte Esterase Small Zheng/uL (NEGATIVE) H 10/22/17 02:51 Urine RBC 0 - 2 /hpf (0-2) 10/22/17 02:51 Urine WBC 1 - 3 /hpf (0-6) 10/22/17 02:51 Ur Epithelial Cells 0 - 2 /hpf (0-5) 10/22/17 02:51 Calcium Oxalate Crystal Few /hpf 10/22/17 02:51 Urine Bacteria Rare (NEG) 10/22/17 02:51 Urine Opiates Screen Positive (NEGATIVE) H 10/22/17 02:51 Urine Methadone Screen Negative (NEGATIVE) 10/22/17 02:51 Acetaminophen < 10.0 ug/ml (10.0-20.0) L 10/22/17 01:08 Ur Barbiturates Screen Negative (NEGATIVE) 10/22/17 02:51 Ur Phencyclidine Scrn Negative (NEGATIVE) 10/22/17 02:51 Ur Amphetamines Screen Negative (NEGATIVE) 10/22/17 02:51 U Benzodiazepines Scrn Negative (NEGATIVE) 10/22/17 02:51 U Oth Cocaine Metabols Negative (NEGATIVE) 10/22/17 02:51 U Cannabinoids Screen Negative (NEGATIVE) 10/22/17 02:51 Alcohol, Quantitative < 10 mg/dL (0-10) 10/23/17 08:25 Copper 103 mcg/dL (70-175) 10/22/17 05:00 Zinc 63 mcg/dL (60-130) 10/22/17 06:00 Hepatitis A IgM Ab Negative (NEGATIVE) 10/23/17 06:00 Hep Bs Antigen Negative (NEGATIVE) 10/23/17 06:00 Hep B Core IgM Ab Negative (NEGATIVE) 10/23/17 06:00 Hepatitis C Antibody Negative (NEGATIVE) 10/23/17 06:00 Attending/Attestation - Attestation I have personally seen and examined this patient.: Yes I have fully participated in the care of the patient.: Yes I have reviewed all pertinent clinical information, including history, physical exam and plan: Yes Notes (Text): 10/25/17 10:20 Medical record note made by the resident after discussion with my direction and input after the patient was personally seen and examined by me. I have reviewed the chart and agree that the record accurately reflects by personal performance of the history, physical exam, data review, and medical decision-making, in the course for the patient. I have also personally directed the plan of care. 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 Patient has elevated transaminase at the time of discharge, etiology is likely due to medication.The AST and ALT are coming down.Patient will need repeat LFT in 5-7 days.This was discussed in detail with her. Management plan was discussed in detail with patient. Education was provided.
[2017-10-26 14:39] LABS: VITAMIN C 0.1 mg/dL (0.3-2.7)
== END 2017-10-24 17:01 | disposition home health service (06) | DRG 641 ==
LOC: ED 21:47 → ERH 10-22 02:13 → 3RSO 10-22 03:26 → OBSVTOIN 10-22 15:43
PROVIDERS: ADMIT Internal Medicine; ATTEND Hospitalist
PROC: 05HM33Z Insertion of Infusion Device into Right Internal Jugular Vein, Percutaneous Approach (ICD-10-PCS; principal; 2017-10-22)
PROC: B543ZZA Ultrasonography of Right Jugular Veins, Guidance (ICD-10-PCS; 2017-10-22)
DX: E16.2 Hypoglycemia, unspecified (principal); N39.0 Urinary tract infection, site not specified; D68.59 Other primary thrombophilia; I48.0 Paroxysmal atrial fibrillation; J45.909 Unspecified asthma, uncomplicated; I10 Essential (primary) hypertension; E78.5 Hyperlipidemia, unspecified; K21.9 Gastro-esophageal reflux disease without esophagitis; Z86.718 Personal history of other venous thrombosis and embolism; Z86.73 Personal history of transient ischemic attack (TIA), and cerebral infarction without residual deficits; Z79.01 Long term (current) use of anticoagulants; Z88.0 Allergy status to penicillin; Z80.3 Family history of malignant neoplasm of breast; Z98.84 Bariatric surgery status; Z90.13 Acquired absence of bilateral breasts and nipples

== ENCOUNTER 2017-11-19 13:30 | Emergency (ER) | payer MEDICARE ==
[2017-11-19 13:47] VITALS: TEMP 98.2; BMI 31.0
--- NOTE | 2017-11-19 14:21 | ED PDOC ---
Arrival/HPI - General Chief Complaint: Lower Extremity Problem/Injury Time Seen by Provider: 11/19/17 13:50 Historian: Patient - History of Present Illness Narrative History of Present Illness (Text): 11/19/17 14:19 62 year old female, whose medical history includes CVA and hypertension, presents to the Emergency department complaining of bilateral leg swelling and pain that began last night and worsened this morning. Symptoms are worse in the right leg. Patient denies any fever, chills, chest pain, shortness of breath, nausea, vomiting, diarrhea, urinary symptoms, back pain, neck pain, headache, dizziness, or any other complaints. Dr. Payal Ho Time/Duration: Other (less than 1 day) Symptom Onset: Gradual Symptom Course: Unchanged Activities at Onset: Rest Context: Home Past Medical History - Provider Review Nursing Documentation Reviewed: Yes - Infectious Disease Hx of Infectious Diseases: None - Tetanus Immunization Tetanus Immunization: Unknown - Cardiac Hx Hypertension: Yes - Pulmonary Hx Respiratory Disorders: Yes Hx Asthma: Yes Hx Bronchitis: No Hx Chronic Obstructive Pulmonary Disease (COPD): No Hx Emphysema: No Hx Pneumonia: Yes Hx Respiratory Aspiration: No Hx Respiratory Tract Infection: No Hx Sleep Apnea: No Hx Tuberculosis: No - Neurological HX Cerebrovascular Accident: Yes - HEENT Hx HEENT Disorder: Yes Hx Blind: Yes Hx Cataracts: No Hx Deafness: No Hx Difficulty Chewing: No Hx Epistaxis: No Hx Glaucoma: No Hx Macular Degeneration: No Other/Comment: Tonsillectomy - Renal Hx Renal Failure: Yes - Endocrine/Metabolic Hx Endocrine Disorders: No Hx Adrenal Cancer: No Hx Diabetes Insipidus: No Hx Diabetes Mellitus Type 1: No Hx Diabetes Mellitus Type 2: No Hx Hyperthyroidism: No Hx Hypothyroidism: No Hx Systemic Lupus Erythematosus: No - Hematological/Oncological Hx Blood Transfusions: Yes Hx Blood Transfusion Reaction: No - Integumentary Hx Dermatological Disorder: No Hx Basal Cell Carcinoma: No Hx Eczema: No Hx Melanoma: No Hx Psoriasis: No Hx Squamous Cell Carcinoma: No - Musculoskeletal/Rheumatological Hx Arthritis: Yes - Gastrointestinal Hx Gastrointestinal Disorders: Yes Hx Colostomy: No Hx Crohn's Disease: No Hx Diverticulitis: No Hx Gall Bladder Disease: Yes Hx Gastroesophageal Reflux: Yes Hx Ileostomy: No Hx Liver Failure: No Hx Pancreatitis: No HX Swallowing Problems: No Other/Comment: Gastric Bypass Surgery. Appetite Changes. Weight Loss. - Genitourinary/Gynecological Hx Genitourinary Disorders: No Hx Hematuria: No Hx Incontinence: No Hx Sexually Transmitted Diseases: No Hx Urinary Tract Infection: Yes - Psychiatric Hx Psychophysiologic Disorder: No Hx Anxiety: No Hx Bipolar Disorder: No Hx Depression: No Hx Emotional Abuse: No Hx Hallucinations: No Hx Panic Disorder: No Hx Post Traumatic Stress Disorder: No Hx Psychosis: No Hx Physical Abuse: No Hx Schizophrenia: No Hx Sexual Abuse: No Hx Substance Use: No - Past Surgical History Past Surgical History: Non-Contributing - Surgical History Hx Mastectomy: No - Anesthesia Hx Anesthesia Reactions: No Hx Malignant Hyperthermia: No - Suicidal Assessment Feels Threatened In Home Enviroment: No Family/Social History - Physician Review Nursing Documentation Reviewed: Yes Family/Social History: Unknown Family HX Smoking Status: Never Smoked Hx Alcohol Use: No Hx Substance Use: No Hx Substance Use Treatment: No Allergies/Home Meds Allergies/Adverse Reactions: Allergies Penicillins Allergy (Verified 11/19/17 13:46) ANGIOEDEMA/SHORTNESS OF BREATH ANGIOEDEMA SHORTNESS OF BREATH levofloxacin Adverse Reaction (Verified 11/19/17 13:46) VOMITING Home Medications: Home Meds Medication Instructions Recorded Confirmed Apixaban [Eliquis] 5 mg PO BID 03/26/17 10/22/17 Gabapentin [Neurontin] 400 mg PO TID 03/26/17 10/22/17 Furosemide [Lasix] 40 mg PO DAILY 10/22/17 10/22/17 Pantoprazole Sodium [Protonix] 20 mg PO DAILY 10/22/17 10/22/17 Potassium Chloride [K-Dur 20 mEq 20 meq PO DAILY 10/22/17 10/22/17 ER Tab] Review of Systems - Physician Review All systems were reviewed & negative as marked: Yes - Review of Systems Constitutional: absent: Fevers, Night Sweats Respiratory: absent: SOB Cardiovascular: absent: Chest Pain Gastrointestinal: absent: Diarrhea, Nausea, Vomiting Genitourinary Female: absent: Dysuria Musculoskeletal: Other (leg swelling and pain). absent: Back Pain, Neck Pain Neurological: absent: Headache, Dizziness Physical Exam Vital Signs Reviewed: Yes Vital Signs Temp Pulse Resp BP Pulse Ox 11/19/17 16:51 85 16 100 11/19/17 16:50 109/70 11/19/17 15:39 83 16 102/57 L 100 11/19/17 13:46 98.2 F 88 18 123/82 99 Temperature: Afebrile Blood Pressure: Normal Pulse: Regular Respiratory Rate: Normal Appearance: Positive for: Well-Appearing, Non-Toxic, Comfortable Pain Distress: None Mental Status: Positive for: Alert and Oriented X 3 - Systems Exam Head: Present: Atraumatic, Normocephalic Pupils: Present: PERRL Extroacular Muscles: Present: EOMI Conjunctiva: Present: Normal Mouth: Present: Moist Mucous Membranes Neck: Present: Normal Range of Motion Respiratory/Chest: Present: Clear to Auscultation, Good Air Exchange. No: Respiratory Distress, Accessory Muscle Use Cardiovascular: Present: Regular Rate and Rhythm, Normal S1, S2. No: Murmurs Abdomen: No: Tenderness, Distention, Peritoneal Signs Back: Present: Normal Inspection Upper Extremity: Present: Normal Inspection. No: Cyanosis, Edema Lower Extremity: Present: CALF TENDERNESS (bilateral legs), Swelling (bilateral swelling and tense, right more than left) Neurological: Present: GCS=15, CN II-XII Intact, Speech Normal Skin: Present: Warm, Dry, Normal Color. No: Rashes Psychiatric: Present: Alert, Oriented x 3, Normal Insight, Normal Concentration Medical Decision Making ED Course and Treatment: 11/19/17 14:23 Impression: 62 year old female presents to the Emergency department complaining of bilateral lower extremity swelling and pain, left worse than right. Differential Diagnosis included but are not limited to: blood clot Plan: -- Chest xray -- Bilateral lower extremity Duplex -- EKG -- Labs -- Reassess and disposition Prior Visits: Notes and results from previous visits were reviewed. Patient was last seen in the emergency department on 10/21/17, was diagnosed with altered mental status, and was admitted to the hospital. Patient was also seen on 08/25/17, was diagnosed with Leukocytosis, Chest pain in adult, Abnormal LFTs, Failure of outpatient treatment, Dyspnea, Sepsis, and was admitted to the hospital. Progress Notes: - Lab Interpretations Lab Results: 11/19/17 15:39 11/19/17 15:39 Lab Results 11/19/17 15:39: Sodium 141, Potassium 3.5 L, Chloride 108 H, Carbon Dioxide 19 L , Anion Gap 17, BUN 30 H, Creatinine 1.2, Est GFR ( Amer) 55, Est GFR ( Non-Af Amer) 45, Random Glucose 84, Calcium 8.8, Total Bilirubin 0.6, AST 38 H D , ALT 33, Alkaline Phosphatase 71, Lactate Dehydrogenase 612, Total Creatine Kinase 120, Troponin I < 0.01 D, NT-Pro-B Natriuret Pep 62.3, Total Protein 6.9 , Albumin 3.8, Globulin 3.1, Albumin/Globulin Ratio 1.2 11/19/17 15:39: PT 13.4 H, INR 1.17 H 11/19/17 15:39: WBC 6.2 D, RBC 3.41 L, Hgb 10.2 L, Hct 31.2 L, MCV 91.5, MCH 29.9, MCHC 32.7, RDW 15.1 H, Plt Count 195, MPV 9.4, Gran % 65.3, Lymph % (Auto ) 21.5 L, [place] % (Auto) 10.0 H, Eos % (Auto) 2.9, Baso % (Auto) 0.3, Gran # 4.03 , Lymph # (Auto) 1.3, [place] # (Auto) 0.6, Eos # (Auto) 0.2, Baso # (Auto) 0.02 - RAD Interpretation Narrative RAD Interpretations (Text): 11/19/2017 14:31:30 Chest Xray FINDINGS: LUNGS: No active pulmonary disease. PLEURA: No significant pleural effusion identified, no pneumothorax apparent. CARDIOVASCULAR: Normal. OSSEOUS STRUCTURES: No significant abnormalities. VISUALIZED UPPER ABDOMEN: Normal. OTHER FINDINGS: None. IMPRESSION: No active disease. 11/19/17 15:55 Duplex is negative. Radiology Orders: 11/19/17 14:00 CXR [CHEST PORTABLE] [RAD] Stat 11/19/17 14:11 DUPLEX LOWER EXTRM VEIN BILAT [US] Stat - EKG Interpretation EKG Interpretation (Text): 11/19/17 14:23 EKG: Ordered, reviewed, and independently interpreted the EKG. Rate : 79 BPM Rhythm : NSR Interpretation : Cannot rule out anterior infarct, age undetermined. Interpreted by ED Physician: Yes Type: 12 lead EKG - Medication Orders Current Medication Orders: Discontinued Medications Furosemide (Lasix) 40 mg IVP STAT STA Stop: 11/19/17 16:12 Last Admin: 11/19/17 16:50 Dose: 40 mg MAR Blood Pressure Document 11/19/17 16:50 MANI (Rec: 11/19/17 16:50 MANI [id number]) Blood Pressure Blood Pressure (100/60-150/90) 109/70 IVP Administration Document 11/19/17 16:50 MANI (Rec: 11/19/17 16:50 MANI [id number]) Charges for Administration # of IVP Administrations 1 Potassium Chloride (K-Dur 20 Meq Er Tab) 40 meq PO STAT STA Stop: 11/19/17 16:12 Last Admin: 11/19/17 16:50 Dose: 40 meq - Scribe Statement The provider has reviewed the documentation as recorded by the Scribe Harsha Morley All medical record entries made by the Scribe were at my direction and personally dictated by me. I have reviewed the chart and agree that the record accurately reflects my personal performance of the history, physical exam, medical decision making, and the department course for this patient. I have also personally directed, reviewed, and agree with the discharge instructions and disposition. Disposition/Present on Arrival - Present on Arrival Any Indicators Present on Arrival: Yes History of DVT/PE: Yes History of Uncontrolled Diabetes: No Urinary Catheter: No History of Decub. Ulcer: No History Surgical Site Infection Following: None - Disposition Have Diagnosis and Disposition been Completed?: Yes Diagnosis: Dependent edema Disposition: HOME/ ROUTINE Disposition Time: 17:19 Patient Plan: Discharge Condition: GOOD Additional Instructions: Mrs Redd Lam- All of your tests look good, no blood clot, no kidney problem, no heart problem...... this is just some increased dependent edema. Elevate your feet as much as possible. Take all of your medicines as prescribed. Return to us if any problems. Luciano Hines/ Axel Figueroa Referrals: [facility], [Non-Staff] - Follow up with primary Forms: [employer] ([place])
--- NOTE | 2017-11-19 14:32 | RAD ---
HISTORY: Swollen Legs and Feet COMPARISON: 10/22/2017 FINDINGS: LUNGS: No active pulmonary disease. PLEURA: No significant pleural effusion identified, no pneumothorax apparent. CARDIOVASCULAR: Normal. OSSEOUS STRUCTURES: No significant abnormalities. VISUALIZED UPPER ABDOMEN: Normal. OTHER FINDINGS: None. IMPRESSION: No active disease.
[2017-11-19 15:43] LABS: BASO # 0.02 K/mm3 (0.0-2.0); BASO % 0.3 % (0.0-3.0); EOS # 0.2 (0.0-0.7); EOS % 2.9 % (1.5-5.0); GRAN # 4.03 (1.4-6.5); GRAN % 65.3 % (50.0-68.0); HEMOGLOBIN 10.2 g/dL (12.0-16.0); LYMPH # 1.3 (1.2-3.4); LYMPH % 21.5 % (22.0-35.0); MEAN CELL VOLUME 91.5 fl (80.0-105.0); MEAN CORPUSCULAR HEMOGLOBIN 29.9 pg (25.0-35.0); MEAN CORPUSCULAR HGB CONC 32.7 g/dl (31.0-37.0); MEAN PLATELET VOLUME 9.4 fl (7.0-11.0); MONO # 0.6 (0.1-0.6); RBC 3.41 10^6/uL (3.5-6.1); RED CELL DISTRIBUTION WIDTH 15.1 % (11.5-14.5); WHITE BLOOD COUNT 6.2 10^3/ul (4.5-11.0)
[2017-11-19 15:51] LABS: INR 1.17 (0.93-1.08); PROTHROMBIN TIME 13.4 SECONDS (9.4-12.5)
[2017-11-19 16:09] LABS: B-TYPE NATRIURETIC PEPTIDE 62.3 pg/mL (0-450); TROPONIN I < 0.01 ng/mL
[2017-11-19 16:10] LABS: ALB/GLOB RATIO 1.2 (1.1-1.8); ALBUMIN 3.8 g/dL (3.0-4.8); ALT/SGPT 33 U/L (7-56); AST/SGOT 38 U/L (14-36); BLOOD UREA NITROGEN 30 mg/dL (7-21); CALCIUM 8.8 mg/dL (8.4-10.5); GFR AFRICAN-AMERICAN 55; GFR NON-AFRICAN AMERICAN 45
[2017-11-19] MEDS ORDERED: Potassium Chloride 20 mEq ER Tab PO STA (16:11)
[2017-11-19 18:58] VITALS: BP 110/72; PULSE 84; RESP 17; O2SAT 99
--- NOTE | 2017-11-20 08:20 | CARD ---
APPROVED REPORT EKG Measurement Heart [id number] MD [id number] <Conclusion> Normal sinus rhythm Cannot rule out Anterior infarct, age undetermined Abnormal ECG
--- NOTE | 2017-11-20 17:16 | US ---
HISTORY: Leg pain and swelling. Evaluate for DVT PHYSICIAN(S): Stewart Aden MD. TECHNIQUE: Duplex sonography and color-flow Doppler with graded compression were used to evaluate the deep venous systems of both lower extremities. The exam is limited by body habitus and edema. FINDINGS: The visualized deep venous systems of both lower extremities are sonographically normal and compressible. Normal wave forms and augmentation are seen. There is no sonographic evidence for deep venous thrombosis in the visualized segments of both lower extremities. IMPRESSION: No sonographic evidence for deep venous thrombosis in the visualized segments of both lower extremities. Limited exam
== END 2017-11-19 18:30 | disposition home or self-care (01) ==
LOC: ED 13:30
DX: R60.9 Edema, unspecified (principal); I10 Essential (primary) hypertension
CPT/HCPCS: 71045; 80053; 82550; 83615; 83880; 84484; 85025; 85610; 93005; 93970; 96374; 99283; J1940

== ENCOUNTER 2017-11-20 13:10 | Emergency (ER) | payer MEDICARE ==
[2017-11-20 13:13] VITALS: BMI 29.8
[2017-11-20 13:18] VITALS: RESP 18; TEMP 98.6
--- NOTE | 2017-11-20 15:14 | ED PDOC ---
Arrival/HPI - History of Present Illness Time/Duration: 24 hours Symptom Onset: Gradual Symptom Course: Improving Quality: Aching - General Chief Complaint: Lower Extremity Problem/Injury Time Seen by Provider: 11/20/17 14:00 - History of Present Illness Narrative History of Present Illness (Text): Patient is a 62 year old female with a past medical history of Protein C deficiency, asthma, dyslipidemia, hypertension, atrial fibrillation, DVT with IVC filter, previous CVA, and warfarin induced necrosis who presents to the emergency department for evaluation and treatment of lower extremity pain and swelling. States the pain and swelling is at baseline compared to yesterday's evaluation. Also admits to intermittent right upper quadrant pain, nausea, and one bout of nonbloody nonbilious emesis. Able to tolerate diet now. Denies fever , chills, chest pain, SOB at rest, diarrhea, constipation, and urinary symptoms. 11/20/17 15:21 (Jaime Maddox) Past Medical History - Provider Review Nursing Documentation Reviewed: Yes - Infectious Disease Hx of Infectious Diseases: None - Tetanus Immunization Tetanus Immunization: Unknown - Cardiac Hx Hypertension: Yes - Pulmonary Hx Respiratory Disorders: Yes Hx Asthma: Yes Hx Bronchitis: No Hx Chronic Obstructive Pulmonary Disease (COPD): No Hx Emphysema: No Hx Pneumonia: Yes Hx Respiratory Aspiration: No Hx Respiratory Tract Infection: No Hx Sleep Apnea: No Hx Tuberculosis: No - Neurological HX Cerebrovascular Accident: Yes - HEENT Hx HEENT Disorder: Yes Hx Blind: Yes Hx Cataracts: No Hx Deafness: No Hx Difficulty Chewing: No Hx Epistaxis: No Hx Glaucoma: No Hx Macular Degeneration: No Other/Comment: Tonsillectomy - Renal Hx Renal Failure: Yes - Endocrine/Metabolic Hx Endocrine Disorders: No Hx Adrenal Cancer: No Hx Diabetes Insipidus: No Hx Diabetes Mellitus Type 1: No Hx Diabetes Mellitus Type 2: No Hx Hyperthyroidism: No Hx Hypothyroidism: No Hx Systemic Lupus Erythematosus: No - Hematological/Oncological Hx Blood Transfusions: Yes Hx Blood Transfusion Reaction: No - Integumentary Hx Dermatological Disorder: No Hx Basal Cell Carcinoma: No Hx Eczema: No Hx Melanoma: No Hx Psoriasis: No Hx Squamous Cell Carcinoma: No - Musculoskeletal/Rheumatological Hx Arthritis: Yes - Gastrointestinal Hx Gastrointestinal Disorders: Yes Hx Colostomy: No Hx Crohn's Disease: No Hx Diverticulitis: No Hx Gall Bladder Disease: Yes Hx Gastroesophageal Reflux: Yes Hx Ileostomy: No Hx Liver Failure: No Hx Pancreatitis: No HX Swallowing Problems: No Other/Comment: Gastric Bypass Surgery. Appetite Changes. Weight Loss. - Genitourinary/Gynecological Hx Genitourinary Disorders: No Hx Hematuria: No Hx Incontinence: No Hx Sexually Transmitted Diseases: No Hx Urinary Tract Infection: Yes - Psychiatric Hx Psychophysiologic Disorder: No Hx Anxiety: No Hx Bipolar Disorder: No Hx Depression: No Hx Emotional Abuse: No Hx Hallucinations: No Hx Panic Disorder: No Hx Post Traumatic Stress Disorder: No Hx Psychosis: No Hx Physical Abuse: No Hx Schizophrenia: No Hx Sexual Abuse: No Hx Substance Use: No - Past Surgical History Past Surgical History: Non-Contributing - Surgical History Hx Mastectomy: No - Anesthesia Hx Anesthesia Reactions: No Hx Malignant Hyperthermia: No - Suicidal Assessment Feels Threatened In Home Enviroment: No Family/Social History - Physician Review Nursing Documentation Reviewed: Yes Family/Social History: Unknown Family HX Smoking Status: Never Smoked Hx Alcohol Use: No Hx Substance Use: No Hx Substance Use Treatment: No Allergies/Home Meds Allergies/Adverse Reactions: Allergies Penicillins Allergy (Verified 11/19/17 13:46) ANGIOEDEMA/SHORTNESS OF BREATH ANGIOEDEMA SHORTNESS OF BREATH levofloxacin Adverse Reaction (Verified 11/19/17 13:46) VOMITING Home Medications: Home Meds Medication Instructions Recorded Confirmed Apixaban [Eliquis] 5 mg PO BID 03/26/17 11/20/17 Gabapentin [Neurontin] 400 mg PO TID 03/26/17 11/20/17 Furosemide [Lasix] 40 mg PO DAILY 10/22/17 11/20/17 Pantoprazole Sodium [Protonix] 20 mg PO DAILY 10/22/17 11/20/17 Potassium Chloride [K-Dur 20 mEq 20 meq PO DAILY 10/22/17 11/20/17 ER Tab] Review of Systems - Review of Systems Constitutional: Normal Eyes: Normal ENT: Normal Respiratory: Normal Cardiovascular: Normal Gastrointestinal: Abdominal Pain, Nausea, Vomiting Genitourinary Female: Normal Musculoskeletal: Arthralgias, Joint Swelling Skin: Normal Neurological: Normal Endocrine: Normal Hemo/Lymphatic: Normal Psychiatric: Normal Physical Exam Temperature: Afebrile Blood Pressure: Normal Pulse: Regular Respiratory Rate: Normal Appearance: Positive for: Well-Appearing, Non-Toxic, Comfortable Pain Distress: None Mental Status: Positive for: Alert and Oriented X 3 - Systems Exam Head: Present: Atraumatic, Normocephalic Pupils: Present: PERRL Extroacular Muscles: Present: EOMI Conjunctiva: Present: Normal Mouth: Present: Moist Mucous Membranes Neck: Present: Normal Range of Motion Respiratory/Chest: Present: Clear to Auscultation, Good Air Exchange. No: Respiratory Distress, Accessory Muscle Use Cardiovascular: Present: Regular Rate and Rhythm, Normal S1, S2. No: Murmurs Abdomen: No: Tenderness, Distention, Peritoneal Signs Back: Present: Normal Inspection Upper Extremity: Present: Normal Inspection. No: Cyanosis, Edema Lower Extremity: Present: Edema, NORMAL PULSES, Swelling, Capillary Refill < 2 s. No: Cyanosis, Tenderness, Erythema Neurological: Present: GCS=15, Speech Normal, Normal Sensory Function Skin: Present: Warm, Dry, Normal Color. No: Rashes Psychiatric: Present: Alert, Oriented x 3, Normal Insight, Normal Concentration Vital Signs Temp Pulse Resp BP Pulse Ox 11/20/17 16:14 99 11/20/17 16:13 75 18 118/78 99 11/20/17 15:10 79 18 117/79 97 11/20/17 13:17 98.6 F 85 18 119/80 97 Medical Decision Making ED Course and Treatment: Assessment and Plan: Patient is a 62 year old female with a past medical history of Protein C deficiency, asthma, dyslipidemia, hypertension, atrial fibrillation, DVT with IVC filter, previous CVA, and warfarin induced necrosis who presents to the emergency department for evaluation and treatment of lower extremity pain and swelling. 11/20/17 15:26 Abdominal Pain, Nausea, Vomiting - zofran and pepcid Lower extremity pain and swelling - likely dependent edema- encourage elevation of legs while sleeping 11/20/17 15:31 - patient reassessed nausea vomiting resolved - leg pain is at baseline - able to ambulate using cane - venous doppler u/s reviewed from yesterday- no DVTs (Jaime Maddox) 62 yo female with leg pain and swelling. Chronic abdominal pain. Agree with resident note, history and physical assessment and plan. (Keo Richardson) - Medication Orders Current Medication Orders: Discontinued Medications Famotidine (Pepcid) 40 mg PO STAT STA Stop: 11/20/17 14:05 Last Admin: 11/20/17 14:12 Dose: 40 mg Ondansetron HCl (Zofran Odt) 8 mg PO STAT STA Stop: 11/20/17 14:05 Last Admin: 11/20/17 14:12 Dose: 8 mg Disposition/Present on Arrival - Present on Arrival Any Indicators Present on Arrival: Yes History of DVT/PE: Yes History of Uncontrolled Diabetes: No Urinary Catheter: No History of Decub. Ulcer: No History Surgical Site Infection Following: None - Disposition Have Diagnosis and Disposition been Completed?: Yes Disposition Time: 15:34 Patient Plan: Discharge - Disposition Diagnosis: Leg pain Disposition: HOME/ ROUTINE Condition: FAIR Additional Instructions: JAQUELINE GRUBBS, thank you for letting us take care of you today. Your provider was Keo Richardson DO and you were treated for LEG PROBLEM. The emergency medical care you received today was directed at your acute symptoms. If you were prescribed any medication, please fill it and take as directed. It may take several days for your symptoms to resolve. Return to the Emergency Department if your symptoms worsen, do not improve, or if you have any other problems. Please contact your doctor or call one of the physicians/clinics you have been referred to that are listed on the Patient Visit Information form that is included in your discharge packet. Bring any paperwork you were given at discharge with you along with any medications you are taking to your follow up visit. Our treatment cannot replace ongoing medical care by a primary care provider outside of the emergency department. Thank you for allowing the [facility] team to be part of your care today. If you had an X-Ray or CT scan: A Radiologist will review the ED reading if any change in treatment is needed we will contact you. If you had a blood, urine, or wound culture: It will take several days for the results, if any change in treatment is needed we will contact you. If you had an STI test: It will take 48 hours for the results. Please call after 1 week if you have not heard back. Forms: [employer] ([place])
[2017-11-20 16:13] VITALS: PULSE 75
[2017-11-20 16:14] VITALS: BP 118/78; O2SAT 99
== END 2017-11-20 16:14 | disposition home or self-care (01) ==
LOC: ED 13:10
DX: M79.606 Pain in leg, unspecified (principal); E78.5 Hyperlipidemia, unspecified; I10 Essential (primary) hypertension; I48.91 Unspecified atrial fibrillation; Z86.73 Personal history of transient ischemic attack (TIA), and cerebral infarction without residual deficits

== ENCOUNTER 2017-12-17 17:04 | Inpatient (IN) | payer MEDICARE, OTHER ==
--- NOTE | 2017-12-17 17:08 | EDPD ---
HPI Stroke - General Time Seen by Provider: 12/17/17 17:07 Historian: Patient - History of Present Illness Narrative History of Present Illness (Free Text): 12/17/17 17:09 62 year old female with a past medical history of Protein C deficiency, asthma, dyslipidemia, hypertension, atrial fibrillation, DVT with IVC filter and on Eliquis, previous CVA, and warfarin induced necrosis, presents to the Emergency department via EMS accompanied by friend, for evaluation of right sided weakness since prior to arrival. Friend states patient was at her baseline last night before going to bed, however between 12-6 "is when stroke happened". Patient states she found herself on the floor this morning but does not recall the event properly. Patient was subsequently at her baseline again this morning and presented with right sided weakness prior to arrival. Patient states she is unable to grasp any object with her right hand secondary to weakness. Due to patient's past medical history, patient worries that she may be having a stroke but is unable to compare the symptoms from previous episodes. Patient denies any other associated neurological changes including slurred speech, facial droop or headache. Patient denies any fever, nausea, vomiting, diarrhea, abdominal pain, head trauma, chest pain, shortness of breath or any other complaints. Patient presents to the Emergency department for medical evaluation. Patient is having trouble recalling the entire incident and appears confused about the entire event. Onset:: Hours Timing: Currently Symptomatic Context: Home Exacerbated by: Nothing Relieved by: Nothing - Location Locate Right: Upper extremity - Pain Assessment/Levels Maximum Severity: Mild Severity Current: None rTPA Inclusion/Exclusion - Refusal of Treatment Patient Refused Treatment: No - Inclusion Criteria for Altepase Patient is 18 years or Older: Yes The Clinical Diagnosis of Ischemic Stroke That is Causing a Potentially Disabling Neurological Deficit: No Time of Onset is Well Established to be Less Than 270 Minute Before Treatment Would Begin: No Risk/Benefit Discussed With Patient/Family Member Present: No Past Medical History - Provider Review Nursing Documentation Reviewed: Yes - Infectious Disease Hx of Infectious Diseases: None - Tetanus Immunization Tetanus Immunization: Unknown - Cardiac Hx Hypertension: Yes - Pulmonary Hx Respiratory Disorders: Yes Hx Asthma: Yes Hx Bronchitis: No Hx Chronic Obstructive Pulmonary Disease (COPD): No Hx Emphysema: No Hx Pneumonia: Yes Hx Respiratory Aspiration: No Hx Respiratory Tract Infection: No Hx Sleep Apnea: No Hx Tuberculosis: No - Neurological HX Cerebrovascular Accident: Yes - HEENT Hx HEENT Disorder: Yes Hx Blind: Yes Hx Cataracts: No Hx Deafness: No Hx Difficulty Chewing: No Hx Epistaxis: No Hx Glaucoma: No Hx Macular Degeneration: No Other/Comment: Tonsillectomy - Renal Hx Renal Failure: Yes - Endocrine/Metabolic Hx Endocrine Disorders: No Hx Adrenal Cancer: No Hx Diabetes Insipidus: No Hx Diabetes Mellitus Type 1: No Hx Diabetes Mellitus Type 2: No Hx Hyperthyroidism: No Hx Hypothyroidism: No Hx Systemic Lupus Erythematosus: No - Hematological/Oncological Hx Blood Transfusions: Yes Hx Blood Transfusion Reaction: No - Integumentary Hx Dermatological Disorder: No Hx Basal Cell Carcinoma: No Hx Eczema: No Hx Melanoma: No Hx Psoriasis: No Hx Squamous Cell Carcinoma: No - Musculoskeletal/Rheumatological Hx Arthritis: Yes - Gastrointestinal Hx Gastrointestinal Disorders: Yes Hx Colostomy: No Hx Crohn's Disease: No Hx Diverticulitis: No Hx Gall Bladder Disease: Yes Hx Gastroesophageal Reflux: Yes Hx Ileostomy: No Hx Liver Failure: No Hx Pancreatitis: No HX Swallowing Problems: No Other/Comment: Gastric Bypass Surgery. Appetite Changes. Weight Loss. - Genitourinary/Gynecological Hx Genitourinary Disorders: No Hx Hematuria: No Hx Incontinence: No Hx Sexually Transmitted Diseases: No Hx Urinary Tract Infection: Yes - Psychiatric Hx Psychophysiologic Disorder: No Hx Anxiety: No Hx Bipolar Disorder: No Hx Depression: No Hx Emotional Abuse: No Hx Hallucinations: No Hx Panic Disorder: No Hx Post Traumatic Stress Disorder: No Hx Psychosis: No Hx Physical Abuse: No Hx Schizophrenia: No Hx Sexual Abuse: No Hx Substance Use: No - Past Surgical History Past Surgical History: Non-Contributing - Surgical History Hx Mastectomy: No - Anesthesia Hx Anesthesia Reactions: No Hx Malignant Hyperthermia: No - Suicidal Assessment Feels Threatened In Home Enviroment: No Family/Social History - Family/Social History Family History: Non-Contributory Allergies/Home Meds Allergies/Adverse Reactions: Allergies Penicillins Allergy (Verified 12/17/17 17:56) ANGIOEDEMA/SHORTNESS OF BREATH ANGIOEDEMA SHORTNESS OF BREATH levofloxacin Adverse Reaction (Verified 12/17/17 17:56) VOMITING Home Medications: Home Meds Medication Instructions Recorded Confirmed Apixaban [Eliquis] 5 mg PO BID 03/26/17 12/17/17 Gabapentin [Neurontin] 400 mg PO TID 03/26/17 12/17/17 Furosemide [Lasix] 40 mg PO DAILY 10/22/17 12/17/17 Pantoprazole Sodium [Protonix] 20 mg PO DAILY 10/22/17 12/17/17 Potassium Chloride [K-Dur 20 mEq 20 meq PO DAILY 10/22/17 12/17/17 ER Tab] Review of Systems - Physician Review All systems were reviewed & negative as marked: Yes - Review of Systems Constitutional: absent: Fevers Respiratory: absent: SOB Cardiovascular: absent: Chest Pain Gastrointestinal: absent: Abdominal Pain, Nausea, Vomiting Neurological: Other (right sided weakness). absent: Headache, Speech Changes, Facial Droop ED Stroke Physical Exam Temperature: Afebrile Blood Pressure: Normal Pulse: Regular Respiratory Rate: Normal Appearance: Positive for: Well-Appearing, Non-Toxic, Comfortable Pain Distress: None Mental Status: Positive for: Alert and Oriented X 3 - Systems Exam Head: Present: Atraumatic, Normocephalic Pupils: Present: PERRL Extroacular Muscles: Present: EOMI Conjunctiva: Present: Normal Neck: Present: Normal Range of Motion Respiratory/Chest: Present: Clear to Auscultation, Good Air Exchange. No: Respiratory Distress, Accessory Muscle Use Cardiovascular: Present: Regular Rate and Rhythm, Normal S1, S2. No: Murmurs Abdomen: Present: Normal Bowel Sounds. No: Tenderness, Distention, Peritoneal Signs Genitourinary/Pelvic Exam: Present: NI. 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 No : Cyanosis, Edema Lower Extremity: Present: Other (right leg with decreased strength. ). No: Edema Skin: Present: Warm, Dry, Normal Color. No: Rashes Lymphatic: Present: OX3, NI, NC Psychiatric: Present: Alert, Oriented x 3, Normal Insight, Normal Concentration Medical Decision Making ED Course and Treatment: 12/17/17 17:08 Impression: 62 year old female presents to the Emergency department for right sided weakness. Differential Diagnosis included but are not limited to: CVA vs. TIA Plan: -- Blood Type and Screen -- CTA head/neck -- EKG -- Labs -- EKG -- Chest X-ray -- IV fluids -- Reassess and disposition Prior Visits: Notes and results from previous visits were reviewed. Progress Notes: 12/17/17 17:08 STROKE ALERT ACTIVATED. 12/17/17 17:[address] Cárdenas, who is aware and agrees with Emergency department management plan, requests consult once CTA of head result is back. 12/17/17 17:43 CT of head reviewed by radiologist, shows: 1. No interval acute CT findings as compared prior head CT 10/22/2017. 2. Limited diffuse cerebral atrophy reiterated. Age-appropriate. 12/17/17 19:27 EKG: Ordered, reviewed, and independently interpreted the EKG. Rate : 103 BPM Rhythm : Sinus tachycardia. Interpretation : No ST-segment elevations or depressions, no T-wave inversions, normal intervals. 12/17/17 20:[address] Frias, who is aware and agrees with Emergency department plan, accepts admission to Telemetry. 12/17/17 21:[address] Gonzales, commercial pest control technician house physician, who is aware and agrees with Emergency department management plan, accepts admission to [facility]. - Critical Care Critical Care Minutes: 60 minutes - RAD Interpretation Fish Farm Laborer: Radiologist - EKG Interpretation Interpreted by ED Physician: Yes Type: 12 lead EKG - Scribe Statement The provider has reviewed the documentation as recorded by the Scribe Garett Metz. All medical record entries made by the Scribe were at my direction and personally dictated by me. I have reviewed the chart and agree that the record accurately reflects my personal performance of the history, physical exam, medical decision making, and the department course for this patient. I have also personally directed, reviewed, and agree with the discharge instructions and disposition. NIHSS Scale ([place]) Time Performed: 18:50 - How Severe is the Stoke Baseline Level of Consciousness: 0=Alert LOC to Questions: 0=Both comments correct LOC to commands: 0=Obeys both correctly Best Gaze: 0=Normal Visual: 0=No visual loss Facial: 0=Normal Motor Arm - Left: 0=No drift Motor Arm - Right: 2=Falls before 10 sec Motor Leg - Left: 0=No drift Motor Leg - Right: 2=Falls before 5 sec Limb Ataxia: 0=Absent Sensory: 0=Normal Best Language: 0=No aphasia Dysarthia: 0=Normal articulation Extinction & Inattention (Neglect): 0=Normal, no object Score: 4 Risk Level: Minor Stroke Risk Disposition/Present on Arrival - Present on Arrival Any Indicators Present on Arrival: No History of DVT/PE: Yes History of Uncontrolled Diabetes: No Urinary Catheter: No History Surgical Site Infection Following: None - Disposition Have Diagnosis and Disposition been Completed?: Yes Diagnosis: TIA (transient ischemic attack) Disposition Time: 18:50 Condition: FAIR
[2017-12-17 17:10] VITALS: BMI 33.2
[2017-12-17] MEDS ORDERED: Sodium Chloride 0.9% 1,000 ML IV SCH (17:15)
--- NOTE | 2017-12-17 17:37 | CT ---
Date of service: 12/17/2017 PROCEDURE: CT HEAD WITHOUT CONTRAST. HISTORY: Code Stroke COMPARISON: Noncontrast head CT 10/22/2017. TECHNIQUE: Axial computed tomography images were obtained through the head/brain without intravenous contrast. Radiation dose: Total exam DLP = 930.08 mGy-cm. This CT exam was performed using one or more of the following dose reduction techniques: Automated exposure control, adjustment of the mA and/or kV according to patient size, and/or use of iterative reconstruction technique. FINDINGS: HEMORRHAGE: No definite intracranial hemorrhage. BRAIN: The wisdom-white matter differentiation is well preserved. There is no mass effect or definitive edema pattern appreciated including the cortex. There is limited proportional expansion of the ventriculosulcal and cisternal spaces however in a pattern most compatible with diffuse cerebral atrophy. No suspicious extra-axial fluid collection is identified in the midline brain anatomy appears grossly nonfocal as imaged. No acute suspicious interval findings are identified at this time. VENTRICLES: Unremarkable. No hydrocephalus. CALVARIUM: Unremarkable. PARANASAL SINUSES: Unremarkable as visualized. No significant inflammatory changes. MASTOID AIR CELLS: Unremarkable as visualized. No inflammatory changes. OTHER FINDINGS: Dense falcine calcifications are reiterated. IMPRESSION: 1. No interval acute CT findings as compared prior head CT 10/22/2017. 2. Limited diffuse cerebral atrophy reiterated. Age-appropriate. Findings discussed with Dr. Stevenson with written down and read back verification 12/17/2017 5:31 p.m..
[2017-12-17 18:03] LABS: ALB/GLOB RATIO 1.3 (1.1-1.8); ALBUMIN 4.4 g/dL (3.0-4.8); ALT/SGPT 35 U/L (7-56); AST/SGOT 65 U/L (14-36); BLOOD UREA NITROGEN 27 mg/dL (7-21); CALCIUM 9.2 mg/dL (8.4-10.5); GFR AFRICAN-AMERICAN 39; GFR NON-AFRICAN AMERICAN 33; HDL CHOLESTEROL 88 mg/dL (29-60)
[2017-12-17 18:04] LABS: LDL CHOLESTEROL 63 mg/dL (0-129)
[2017-12-17 18:07] LABS: TROPONIN I < 0.01 ng/mL
[2017-12-17 18:21] LABS: BASO # 0.01 K/mm3 (0.0-2.0); BASO % 0.1 % (0.0-3.0); EOS % 0.1 % (1.5-5.0); GRAN # 10.46 (1.4-6.5); GRAN % 80.9 % (50.0-68.0); HEMOGLOBIN 11.6 g/dL (12.0-16.0); LYMPH # 1.2 (1.2-3.4); MEAN CELL VOLUME 93.4 fl (80.0-105.0); MEAN CORPUSCULAR HEMOGLOBIN 30.4 pg (25.0-35.0); MEAN CORPUSCULAR HGB CONC 32.6 g/dl (31.0-37.0); MEAN PLATELET VOLUME 9.5 fl (7.0-11.0); MONO # 1.3 (0.1-0.6); MONO % 9.9 % (1.0-6.0); RBC 3.81 10^6/uL (3.5-6.1); WHITE BLOOD COUNT 12.9 10^3/ul (4.5-11.0)
--- NOTE | 2017-12-17 18:25 | RAD ---
Date of service: 12/17/2017 PROCEDURE: CHEST RADIOGRAPH, 1 VIEW HISTORY: Code Stroke COMPARISON: 11/19/2017. FINDINGS: LUNGS: The lungs are clear. PLEURA: No pneumothorax or pleural fluid seen. CARDIOVASCULAR: Normal. OSSEOUS STRUCTURES: No significant abnormalities. VISUALIZED UPPER ABDOMEN: Normal. OTHER FINDINGS: None. IMPRESSION: No active pulmonary disease.
--- NOTE | 2017-12-17 18:47 | CT ---
Date of service: 12/17/2017 PROCEDURE: CT Angiography of the Brain and Neck. HISTORY: CVA alert COMPARISON: None available. TECHNIQUE: CT angiography of the intracranial and neck arteries was performed. Coronal and sagittal maximum intensity projection reformatted images were generated. Contrast Dose: Omnipaque 350, 150 cc Radiation dose:Total exam DLP = 590.85 mGy-cm. This CT exam was performed using one or more of the following dose reduction techniques: Automated exposure control, adjustment of the mA and/or kV according to patient size, and/or use of iterative reconstruction technique. FINDINGS: INTERNAL CEREBRAL ARTERIES: Unremarkable. The skull base, petrous, cavernous and supraclinoid segments are bilaterally widely patent. ANTERIOR CEREBRAL ARTERIES: Unremarkable. A1 and A2 segments are widely patent. Smaller distal branches unremarkable, as visualized. MIDDLE CEREBRAL ARTERIES: Unremarkable. M1 and M2 segments are widely patent. Perisylvian branches grossly symmetric. POSTERIOR CIRCULATION: Basilar Artery: Unremarkable. Distal Vertebral Arteries: Left dominant vertebrobasilar circulation. Posterior Cerebral Arteries: Unremarkable. Posterior Inferior Cerebellar Arteries: Unremarkable. NECK CTA: Common Carotid arteries: The bilateral common carotid appear widely patent from their origins to their bifurcations with no significant stenosis appreciated. No evidence to suggest common carotid artery dissection. Internal Carotid arteries: No significant stenosis is appreciated throughout the cervical internal carotid artery segments bilaterally and there is no evidence of dissection either. External Carotid arteries: Appear unremarkable bilaterally. Vertebral arteries: The bilateral vertebral arteries appear normal in caliber from their origins to their junction with the basilar artery. No significant stenosis or definite pattern of dissection. ANEURYSM/ VASCULAR MALFORMATIONS: None. OTHER FINDINGS: None. IMPRESSION: No significant stenosis and no occlusion of the major arteries of the Head or Neck.
[2017-12-17 18:48] LABS: INR 1.02 (0.93-1.08); PARTIAL THROMBOPLASTIN TIME 31.7 Seconds (25.1-36.5); PROTHROMBIN TIME 11.6 SECONDS (9.4-12.5)
[2017-12-17 18:59] LABS: CK-MB 11.6 ng/mL (0.0-3.6)
--- NOTE | 2017-12-17 21:54 | CP.PCM.HP ---
<Harrison West - Last Filed: 12/18/17 04:51> History of Present Illness - History of Present Illness History of Present Illness: Harrison West D.O. PGY-1, Internal Medicine Resident, History and Physical for Dr Gonzales. CC: "I've been feeling confused and my right side is more weak than usual" HPI: Pt is a 62 yo F with a PMH of Protein C deficiency, asthma, dyslipidemia, hypertension, atrial fibrillation, DVT with IVC filter and on Eliquis, previous CVA, and warfarin induced necrosis, presents to the Emergency department via EMS , for evaluation of right sided weakness and confusion since prior to arrival. Pt states she has felt confused over the past day. She relates that she was talking on the phone to her friend and started to feel confused, calling him the wrong name, and slurring her words. Pt states she had trouble walking. She felt like she was going to have a TIA, she was laying in her bed and eventually woke up on the floor. Patient states she is unable to grasp any object with her right hand secondary to weakness. Due to patient's past medical history, patient worries that she may be having a stroke but is unable to compare the symptoms from previous episodes. Pt also said she was having a 6/10 headache which she felt was behind her right eye. She denies that this felt like a migraine which she has had in the past. Pt states she has been compliant with her medications. Pt denies neck pain or rigidity. She denies having any urinary symptoms such as burning, frequency, urgency, malodor, or blood in the urine. 12 point ROS asked and noted in HPI when appropriate. PMH: Protein C deficiency, asthma, dyslipidemia, hypertension, atrial fibrillation, DVT with IVC filter and on Eliquis, previous CVA, warfarin induced necrosis PSH: IVC filter, Ring finger amputation BL Social: never smoker, lives alone FH: Mother breast CA, CVA. Father unknown CA Home meds: protonix, Eliquis, potassium, lasix, metoprolol Allergies: Penicillin, levofloxacin PMD: Dr Moe Labs: 12/17/17 CBC: WBC 12.9, Hgb 11.6, CMP: K 5.2, BUN 27, CR 1.6, CK 1115, CK-MB 11.6 Lipid Panel: HDL 88 Troponin negative x1 Imagin12/17/17 EKG: RRR, no signs of AF or STEMI CXR: no active pulmonary disease Head CT: no interval acute CT findings as compared to prior 10/22/[address] Head and Neck CTA: no significant stenosis or occlusion of the major arteries of the head or neck Present on Admission - Present on Admission Any Indicators Present on Admission: Yes History of Uncontrolled Diabetes: No Urinary Catheter: No Decubitus Ulcer Present: No History Surgical Site Infection Following: None Past Patient History - Infectious Disease Hx of Infectious Diseases: None - Tetanus Immunizations Tetanus Immunization: Unknown - Past Medical History & Family History Past Medical History?: Yes - Past Social History Smoking Status: Never Smoked - CARDIAC Hx Atrial Fibrillation: Yes Hx Cardia Arrhythmia: Yes Hx Hypertension: Yes - PULMONARY Hx Respiratory Disorders: Yes Hx Asthma: Yes Hx Bronchitis: No Hx Chronic Obstructive Pulmonary Disease (COPD): No Hx Emphysema: No Hx Pneumonia: Yes Hx Respiratory Aspiration: No Hx Respiratory Tract Infection: No Hx Sleep Apnea: No Hx Tuberculosis: No - NEUROLOGICAL HX Cerebrovascular Accident: Yes - HEENT Hx HEENT Problems: Yes Hx Blind: Yes Hx Cataracts: No Hx Deafness: No Hx Difficulty Chewing: No Hx Epistaxis: No Hx Glaucoma: No Hx Macular Degeneration: No Other/Comment: Tonsillectomy - RENAL Hx Renal Failure: Yes - ENDOCRINE/METABOLIC Hx Endocrine Disorders: No Hx Adrenal Cancer: No Hx Diabetes Insipidus: No Hx Diabetes Mellitus Type 1: No Hx Diabetes Mellitus Type 2: No Hx Hyperthyroidism: No Hx Hypothyroidism: No Hx Systemic Lupus Erythematosus: No - HEMATOLOGICAL/ONCOLOGICAL Hx Blood Disorders: Yes Hx Blood Transfusions: Yes Hx Blood Transfusion Reaction: No - INTEGUMENTARY Hx Dermatological Problems: No Hx Basil Cell: No Hx Eczema: No Hx Melanoma: No Hx Psoriasis: No Hx Squamous Cell: No - MUSCULOSKELETAL/RHEUMATOLOGICAL Hx Arthritis: Yes - GASTROINTESTINAL Hx Gastrointestinal Disorders: Yes Hx Colostomy: No Hx Crohn's Disease: No Hx Diverticulitis: No Hx Gall Bladder Disease: Yes Hx Gastroesophageal Reflux: Yes Hx Ileostomy: No Hx Liver Failure: No Hx Pancreatitis: No HX Swallowing Problems: No Other/Comment: Gastric Bypass Surgery. Appetite Changes. Weight Loss. - GENITOURINARY/GYNECOLOGICAL Hx Genitourinary Disorders: No Hx Hematuria: No Hx Incontinence: No Hx Sexually Transmitted Disorders: No Hx Urinary Tract Infection: Yes - PSYCHIATRIC Hx Psychophysiologic Disorder: No Hx Anxiety: No Hx Bipolar Disorder: No Hx Depression: No Hx Emotional Abuse: No Hx Hallucinations: No Hx Panic Symptoms: No Hx Post Traumatic Stress Disorder: No Hx Psychosis: No Hx Physical Abuse: No Hx Schizophrenia: No Hx Sexual Abuse: No Hx Substance Use: No - SURGICAL HISTORY Hx Amputation: Yes Hx Mastectomy: No - ANESTHESIA Hx Anesthesia Reactions: No Hx Malignant Hyperthermia: No Meds Allergies/Adverse Reactions: Allergies Allergy/AdvReac Type Severity Reaction Status Date / Time Penicillins Allergy ANGIOEDEMA/SHORTNESS Verified 12/17/17 17:56 OF BREATH levofloxacin AdvReac VOMITING Verified 12/17/17 17:56 Physical Exam - Constitutional Appears: No Acute Distress - Head Exam Head Exam: ATRAUMATIC, NORMAL INSPECTION, NORMOCEPHALIC - Eye Exam Eye Exam: EOMI, Normal appearance, PERRL. absent: Conjunctival injection, Scleral icterus - ENT Exam ENT Exam: Mucous Membranes Dry - Neck Exam Neck exam: Positive for: Full Rom - Respiratory Exam Respiratory Exam: Clear to Auscultation Bilateral, NORMAL BREATHING PATTERN. absent: Respiratory Distress - Cardiovascular Exam Cardiovascular Exam: REGULAR RHYTHM, RRR, +S1, +S2 - GI/Abdominal Exam GI & Abdominal Exam: Normal Bowel Sounds, Soft - Extremities Exam Extremities exam: Positive for: full ROM. Negative for: calf tenderness - Back Exam Back exam: NORMAL INSPECTION. absent: CVA tenderness (L), CVA tenderness (R) - Neurological Exam Neurological exam: Alert, CN II-XII Intact, Oriented x3 Additional comments: muscle strength is 4/5 in RUE and RLE Muscle strength is 5/5 in LUE and LLE negative Babinski BL - Skin Skin Exam: Normal Color Results - Vital Signs Recent Vital Signs: Last Vital Signs Temp 98.2 F 12/17/17 17:55 Pulse 98 H 12/17/17 18:30 Resp 18 12/17/17 18:30 BP 149/78 12/17/17 18:30 Pulse Ox 99 12/17/17 18:30 - Labs Result Diagrams: 12/17/17 17:25 12/17/17 17:25 Assessment & Plan - Assessment and Plan (Free Text) Assessment: Pt is a 62 yo F with a PMH of Protein C deficiency, asthma, dyslipidemia, hypertension, atrial fibrillation, DVT with IVC filter and on Eliquis, previous CVA, and warfarin induced necrosis, presents to the Emergency department via EMS , for evaluation of right sided weakness and confusion since prior to arrival. Plan: CVA vs TIA -EKG: RRR, no signs of AF or STEMI -Lipid Panel: HDL 88, repeat fasting in the morning -Head CT: no interval acute CT findings as compared to prior 10/22/[address] -Head and Neck CTA: no significant stenosis or occlusion of the major arteries of the head or neck -Ordered ECHO, awaiting results -Ordered PTT -started ASA rectal suppository, will switch to PO after pt is able to pass swallow study by Speech eval -consulted Neuro Dr Cárdenas, appreciate recommendations -ordered US of carotid and vertebral arteries -CXR: no active pulmonary disease -keep pt NPO, pt failed nursing swallow study, ASSOCIATE GENETICS PROFESSOR swallow eval ordered -PT and OT consulted -Random Glucose 110 -HA1C 4.9 -CBC: WBC 12.9, Hgb 11.6 Rule out ACS -Troponin negative x1, continue to trend -EKG: RRR, no signs of AF or STEMI JOSEFINA -continue IVF -CMP: K 5.2, BUN 27, CR 1.6, CK 1115, CK-MB 11.6 -ordered CMP for tomorrow, continue to trend and monitor -ordered UA, C/S -ordered Urine Na and urine CR A Fib -continue NOAC, continue to monitor -continue Metoprolol for rate control -EKG: RRR, no signs of AF or STEMI HTN -hold Lasix for now -allow for permissive HTN at this time, intervene if systolic is greater than 220 Asthma -duoneb PRN History of DVT -ordered SCD -continue NOAC Pt seen, examined, and assessment/ plan discussed with Dr Gonzales. Harrison West PGY-1 <Gómez Gonzales - Last Filed: 12/18/17 06:20> Results - Vital Signs Recent Vital Signs: Last Vital Signs Temp 98.7 F 12/18/17 00:06 Pulse 98 H 12/18/17 02:00 Resp 20 12/18/17 00:06 BP 117/69 12/18/17 00:06 Pulse Ox 98 12/17/17 22:28 - Labs Result Diagrams: 12/17/17 17:25 12/17/17 17:25 Labs: Laboratory Results - last 24 hr 07/20/18 02:26 Ur Random Creatinine 124 Ur Random Sodium 19 Attending/Attestation - Attestation I have personally seen and examined this patient.: Yes I have fully participated in the care of the patient.: Yes I have reviewed all pertinent clinical information: Yes Notes (Text): Patient seen and examined with the residents, agree with above. Noted to have motor weakness of the right sided extremities, TIA vs CVA Started on asa, will wait for neuro intput.
[2017-12-17] MEDS ORDERED: Albuterol-Ipratrop 3 mg / 0.5 (3 ml) UD IH PRN (22:21)
[2017-12-17 22:40] LABS: URINE BILIRUBIN NEGATIVE (NEGATIVE); URINE BLOOD NEGATIVE (NEGATIVE); URINE GLUCOSE (UA) NEGATIVE (NEGATIVE); URINE LEUKOCYTE ESTERASE TRACE Leu/uL (NEGATIVE); URINE PROTEIN NEGATIVE mg/dL (<30 mg/dL); URINE UROBILINOGEN 0.2 E.U./dL (<1 E.U./dL)
[2017-12-17 22:41] LABS: URINE APPEARANCE CLEAR (CLEAR); URINE COLOR YELLOW (YELLOW)
[2017-12-17 23:01] LABS: URINE BACTERIA FEW (NEG); URINE RBC 0 - 2 /hpf (0-2)
[2017-12-18 03:17] LABS: CREATININE,RANDOM URINE 124 mg/dL
[2017-12-18] MEDS ORDERED: Benzocaine/Menthol (Cepacol) Lozenge MT PRN (05:54)
[2017-12-18 07:03] LABS: HDL CHOLESTEROL 63 mg/dL (29-60)
[2017-12-18 07:14] LABS: LDL CHOLESTEROL 49 mg/dL (0-129)
[2017-12-18] MEDS: Sodium Chloride 0.9% 1,000 ML IV SCH ×2 (07:29→17:42)
--- NOTE | 2017-12-18 08:30 | CARD ---
APPROVED REPORT Date of service: 12/17/2017 EKG Measurement Heart [id number] KS [id number] <Conclusion> Sinus tachycardia Possible Left atrial enlargement Poor R Progression in V Leads.
[2017-12-18 09:09] LABS: ALBUMIN 3.2 g/dL (3.0-4.8); ALT/SGPT 33 U/L (7-56); AST/SGOT 72 U/L (14-36); BASO # 0.02 K/mm3 (0.0-2.0); BASO % 0.3 % (0.0-3.0); BLOOD UREA NITROGEN 21 mg/dL (7-21); CALCIUM 8.5 mg/dL (8.4-10.5); EOS # 0.2 (0.0-0.7); EOS % 2.9 % (1.5-5.0); GFR AFRICAN-AMERICAN > 60; GFR NON-AFRICAN AMERICAN 56; GRAN # 4.87 (1.4-6.5); GRAN % 63.6 % (50.0-68.0); HEMOGLOBIN 9.6 g/dL (12.0-16.0); LYMPH # 1.9 (1.2-3.4); LYMPH % 24.4 % (22.0-35.0); MEAN CELL VOLUME 93.1 fl (80.0-105.0); MEAN CORPUSCULAR HGB CONC 32.2 g/dl (31.0-37.0); MEAN PLATELET VOLUME 9.4 fl (7.0-11.0); MONO # 0.7 (0.1-0.6); MONO % 8.8 % (1.0-6.0); RBC 3.2 10^6/uL (3.5-6.1); RED CELL DISTRIBUTION WIDTH 14.9 % (11.5-14.5); WHITE BLOOD COUNT 7.7 10^3/ul (4.5-11.0)
[2017-12-18 09:43] LABS: CK MB% 0.7 % (2.5-3.0); CK-MB 10.5 ng/mL (0.0-3.6)
[2017-12-18] MEDS ORDERED: cefTRIAXone 1 gm 1 GM/100 ML BAG IVPB SCH (10:00)
[2017-12-18] MEDS ORDERED: Tmp-Smz 800 mg-160 mg DS Tab PO SCH (10:00)
--- NOTE | 2017-12-18 10:24 | US ---
PROCEDURE: Bilateral carotid artery duplex ultrasound HISTORY: Carotid stenosis TIA PHYSICIAN(S): Stewart Aden MD. TECHNIQUE: Duplex sonography and color-flow Doppler were used to evaluate the carotid bifurcations and limited segments of the vertebral arteries bilaterally. FINDINGS: There is mild smooth hypoechoic plaque noted at the carotid bifurcations bilaterally. The peak systolic velocity in the proximal right internal carotid artery is 80 cm/sec. This corresponds to a 20 to 39% proximal right ICA stenosis. Normal systolic velocities are noted in the proximal right external carotid artery. There is antegrade flow in the atretic right vertebral artery. The peak systolic velocity in the proximal left internal carotid artery is 89 cm/sec. This corresponds to a 20 to 39% proximal left ICA stenosis. Normal systolic velocities are noted in the proximal left external carotid artery. There is antegrade flow in the dominant left vertebral artery. IMPRESSION: 1. Bilateral 20-39% proximal ICA stenoses. 2. Antegrade flow in both vertebral arteries.
--- NOTE | 2017-12-18 10:42 | CP.PCM.CON ---
History of Present Illness - History of Present Illness History of Present Illness: Bossman Mariscal PGY2 - Neurology Consult Note for Dr. 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 Patient indicates that starting on Thursday evening she was noticed to have slurred speech and confusion while speaking on the telephone with her friend. Patient reports waking up the next day in the afternoon with no recall of falling asleep. When she awoke she noticed having right sided weakness worse from her baseline. She indicated difficulty with ambulation secondary to right sided weakness. Patient reports that she has been having what she identifies as TIA's multiple times a week for the past month. She describes similar symptoms to her presentation with slurred speech, confusion and difficulty speaking. She indicates she has not been evaluated during these previous episodes. Patient reports blurred vision and limited visual field at time of interview. She reports some mild improvement in her right lower leg strength from inital onset of symptoms. 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 She denies worsening of her symptoms. She denies headache at this time. Patient denies chest pain, shortness of breath, abdominal pain, nausea, vomiting, fever , chills. 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 Father unknown CA Allergies: Penicillin, levofloxacin Home meds: protonix, Eliquis, potassium, lasix, metoprolol PMD: Dr Moe Review of Systems - Constitutional Constitutional: Weakness. absent: Chills, Weight Loss - EENT Eyes: Blurred Vision, Change in Vision, Diplopia. absent: Blind Spots, Floaters , Pain - Cardiovascular Cardiovascular: Pedal Edema (right sided). absent: Chest Pain, Chest Pain at Rest, Dyspnea, Orthopnea, Palpitations - Respiratory Respiratory: absent: Cough, Hemoptysis - Gastrointestinal Gastrointestinal: absent: Abdominal Pain, Diarrhea, Heartburn - Genitourinary Genitourinary: absent: Difficulty Urinating, Dysuria, Hematuria - Musculoskeletal Musculoskeletal: Abnormal Gait, Muscle Weakness, Numbness - Integumentary Integumentary: absent: Lesions, New Lesions - Neurological Neurological: Numbness, Headaches, Paresthesias, Weakness, Other Visual Disturbances - Psychiatric Psychiatric: Anxiety, Confusion. absent: Depression - Hematologic/Lymphatic Hematologic: absent: Easy Bleeding, Easy Bruising Past Patient History - Infectious Disease Hx of Infectious Diseases: None - Tetanus Immunizations Tetanus Immunization: Unknown - Past Medical History & Family History Past Medical History?: Yes - Past Social History Smoking Status: Never Smoked Alcohol: None Drugs: Denies - CARDIAC Hx Atrial Fibrillation: Yes Hx Cardia Arrhythmia: Yes Hx Hypertension: Yes - PULMONARY Hx Respiratory Disorders: Yes Hx Asthma: Yes Hx Bronchitis: No Hx Chronic Obstructive Pulmonary Disease (COPD): No Hx Emphysema: No Hx Pneumonia: Yes Hx Respiratory Aspiration: No Hx Respiratory Tract Infection: No Hx Sleep Apnea: No Hx Tuberculosis: No - NEUROLOGICAL HX Cerebrovascular Accident: Yes - HEENT Hx HEENT Problems: Yes Hx Blind: Yes Hx Cataracts: No Hx Deafness: No Hx Difficulty Chewing: No Hx Epistaxis: No Hx Glaucoma: No Hx Macular Degeneration: No Other/Comment: Tonsillectomy - RENAL Hx Renal Failure: Yes - ENDOCRINE/METABOLIC Hx Endocrine Disorders: No Hx Adrenal Cancer: No Hx Diabetes Insipidus: No Hx Diabetes Mellitus Type 1: No Hx Diabetes Mellitus Type 2: No Hx Hyperthyroidism: No Hx Hypothyroidism: No Hx Systemic Lupus Erythematosus: No - HEMATOLOGICAL/ONCOLOGICAL Hx Blood Disorders: Yes Hx Blood Transfusions: Yes Hx Blood Transfusion Reaction: No - INTEGUMENTARY Hx Dermatological Problems: No Hx Basil Cell: No Hx Eczema: No Hx Melanoma: No Hx Psoriasis: No Hx Squamous Cell: No - MUSCULOSKELETAL/RHEUMATOLOGICAL Hx Arthritis: Yes - GASTROINTESTINAL Hx Gastrointestinal Disorders: Yes Hx Colostomy: No Hx Crohn's Disease: No Hx Diverticulitis: No Hx Gall Bladder Disease: Yes Hx Gastroesophageal Reflux: Yes Hx Ileostomy: No Hx Liver Failure: No Hx Pancreatitis: No HX Swallowing Problems: No Other/Comment: Gastric Bypass Surgery. Appetite Changes. Weight Loss. - GENITOURINARY/GYNECOLOGICAL Hx Genitourinary Disorders: No Hx Hematuria: No Hx Incontinence: No Hx Sexually Transmitted Disorders: No Hx Urinary Tract Infection: Yes - PSYCHIATRIC Hx Psychophysiologic Disorder: No Hx Anxiety: No Hx Bipolar Disorder: No Hx Depression: No Hx Emotional Abuse: No Hx Hallucinations: No Hx Panic Symptoms: No Hx Post Traumatic Stress Disorder: No Hx Psychosis: No Hx Physical Abuse: No Hx Schizophrenia: No Hx Sexual Abuse: No Hx Substance Use: No - SURGICAL HISTORY Hx Amputation: Yes Hx Mastectomy: No - ANESTHESIA Hx Anesthesia Reactions: No Hx Malignant Hyperthermia: No Meds Allergies/Adverse Reactions: Allergies Allergy/AdvReac Type Severity Reaction Status Date / Time Penicillins Allergy ANGIOEDEMA/SHORTNESS Verified 12/17/17 17:56 OF BREATH levofloxacin AdvReac VOMITING Verified 12/17/17 17:56 - Medications Medications: Current Medications Albuterol/Ipratropium (Duoneb 3 Mg/0.5 Mg (3 Ml) Ud) 3 ml IH [id number] PRN PRN Reason: Shortness of Breath Apixaban (Eliquis) 5 mg PO BID [facility] PRN Reason: Protocol Last Admin: 12/18/17 09:10 Dose: 5 mg Benzocaine/Menthol (Cepacol Sore Throat) 1 mercedes MT Q2H PRN PRN Reason: Sore Throat Gabapentin (Neurontin) 400 mg PO TID [facility]LEXI PRN Reason: Protocol Last Admin: 12/18/17 09:10 Dose: 400 mg Sodium Chloride (Sodium Chloride 0.9%) 1,000 mls @ 100 mls/hr IV .Q10H [facility] Last Admin: 12/18/17 07:29 Dose: 100 mls/hr Metoprolol Tartrate (Lopressor) 25 mg PO BID [facility] Last Admin: 12/18/17 09:11 Dose: 25 mg Ondansetron HCl (Zofran Inj) 4 mg IVP Q6H PRN PRN Reason: Nausea/Vomiting Trimethoprim/Sulfamethoxazole (Bactrim Ds Tab) 1 tab PO BID [facility] Last Admin: 12/18/17 09:11 Dose: 1 tab Physical Exam - Constitutional Appears: No Acute Distress - Head Exam Head Exam: ATRAUMATIC, NORMAL INSPECTION, NORMOCEPHALIC - Eye Exam Eye Exam: EOMI, Nystagmus (mild bilaterally ), PERRL Additional comments: Limited peripheral vision, diplopia Visual acuity intact - ENT Exam ENT Exam: Mucous Membranes Dry - Respiratory Exam Respiratory Exam: Clear to Auscultation Bilateral, NORMAL BREATHING PATTERN - Cardiovascular Exam Cardiovascular Exam: REGULAR RHYTHM, +S1, +S2 - GI/Abdominal Exam GI & Abdominal Exam: Normal Bowel Sounds, Soft. absent: Tenderness - Extremities Exam Extremities exam: Negative for: calf tenderness Additional comments: swelling of right lower extremity compared to left - Neurological Exam Neurological exam: Alert, Motor Sensory Deficit (right sided upper extremity and lower extremity ), Oriented x3 Additional comments: AAOX3, Coherent speech without slurring of speech, minimal pausing Visual Acuity intact, diplopia, peripheral vision limited bilaterally, nystagmus noted bilaterally Paraesthesias of the right sided UE and LE Strength: 2/5 right UE and LE 5/5 left UE and LE - unknown baseline - Psychiatric Exam Psychiatric exam: Anxious, Normal Mood - Skin Skin Exam: Dry, Intact Results - Vital Signs Recent Vital Signs: Last Vital Signs Temp 98.8 F 12/18/17 06:00 Pulse 102 H 12/18/17 09:11 Resp 20 12/18/17 06:00 BP 107/64 12/18/17 09:11 Pulse Ox 96 12/18/17 06:00 - Labs Result Diagrams: 12/18/17 06:30 12/18/17 06:30 Labs: Laboratory Results - last 24 hr 12/18/17 12/18/17 12/18/17 02:26 06:30 06:30 WBC RBC Hgb Hct MCV MCH MCHC RDW Plt Count MPV Gran % Lymph % (Auto) [place] % (Auto) Eos % (Auto) Baso % (Auto) Gran # Lymph # (Auto) [place] # (Auto) Eos # (Auto) Baso # (Auto) APTT 25.4 Sodium Potassium Chloride Carbon Dioxide Anion Gap BUN Creatinine Est GFR ( Amer) Est GFR (Non-Af Amer) POC Glucose (mg/dL) Random Glucose Calcium Total Bilirubin AST ALT Alkaline Phosphatase Total Creatine Kinase CK-MB (CK-2) CK-MB (CK-2) % Total Protein Albumin Globulin Albumin/Globulin Ratio Triglycerides 93 Cholesterol 149 LDL Cholesterol Direct 49 HDL Cholesterol 63 H Ur Random Creatinine 124 Ur Random Sodium 19 12/18/17 12/18/17 12/18/17 06:30 06:30 06:30 WBC 7.7 D RBC 3.20 L Hgb 9.6 L D Hct 29.8 L MCV 93.1 MCH 30.0 MCHC 32.2 RDW 14.9 H Plt Count 209 MPV 9.4 Gran % 63.6 Lymph % (Auto) 24.4 [place] % (Auto) 8.8 H Eos % (Auto) 2.9 Baso % (Auto) 0.3 Gran # 4.87 Lymph # (Auto) 1.9 [place] # (Auto) 0.7 H Eos # (Auto) 0.2 Baso # (Auto) 0.02 APTT Sodium 137 Potassium 4.0 Chloride 110 H Carbon Dioxide 19 L Anion Gap 13 BUN 21 Creatinine 1.0 Est GFR ( Amer) > 60 Est GFR (Non-Af Amer) 56 POC Glucose (mg/dL) Random Glucose 87 Calcium 8.5 Total Bilirubin 0.7 AST 72 H ALT 33 Alkaline Phosphatase 65 Total Creatine Kinase 1576 H CK-MB (CK-2) 10.5 H CK-MB (CK-2) % 0.7 L Total Protein 6.4 Albumin 3.2 Globulin 3.1 Albumin/Globulin Ratio 1.0 L Triglycerides Cholesterol LDL Cholesterol Direct HDL Cholesterol Ur Random Creatinine Ur Random Sodium 12/18/17 12/18/17 07:37 07:42 WBC RBC Hgb Hct MCV MCH MCHC RDW Plt Count MPV Gran % Lymph % (Auto) [place] % (Auto) Eos % (Auto) Baso % (Auto) Gran # Lymph # (Auto) [place] # (Auto) Eos # (Auto) Baso # (Auto) APTT Sodium Potassium Chloride Carbon Dioxide Anion Gap BUN Creatinine Est GFR ( Amer) Est GFR (Non-Af Amer) POC Glucose (mg/dL) 79 142 H Random Glucose Calcium Total Bilirubin AST ALT Alkaline Phosphatase Total Creatine Kinase CK-MB (CK-2) CK-MB (CK-2) % Total Protein Albumin Globulin Albumin/Globulin Ratio Triglycerides Cholesterol LDL Cholesterol Direct HDL Cholesterol Ur Random Creatinine Ur Random Sodium Assessment & Plan - Assessment and Plan (Free Text) Assessment: 62 yo F with a PMH of Protein C deficiency, asthma, dyslipidemia, hypertension, atrial fibrillation, DVT with IVC filter and on Eliquis, 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 Patient admitted for TIA Plan: TIA vs. CVA with residual weakness - Hx of previous CVA in 2007 - Recurrent episodes of neurological deficits representing TIA - Head CT: No interval acute findings in comparison to 10/22/[address] - Head and Neck CTA: No significant stenosis or occlusion - Motor weakness right sided, right sided paresthiasis - Hx of Afib currently rate controlled and AC with NOAC - Brain MRI without contrast for evaluation of possible stroke - If brain MRI abnormal will consider BRODY and EEG for investigation of further etiology - PT/OT History of Protein C deficiency - Factor 10a activity level ordered Patient case and plan discussed with attending, Dr. Melia Mariscal PGY2 - Date & Time Date: 12/18/17 Time: 10:47
--- NOTE | 2017-12-18 15:20 | CP.PCM.PN ---
<Antonio Chan - Last Filed: 12/18/17 15:42> Subjective - Date & Time of Evaluation Date of Evaluation: 12/18/17 Time of Evaluation: 15:16 - Subjective Subjective: Antonio Chan D.O PGY-1, Internal Medicine progress note for Dr. Maddox Patient was examined at bedside, no acute overnight events. Patient complains of right sided weakness and a headache. Denies fevers, chills, chest pain, shortness of breath, abdominal pain, N/V/D. Objective - Vital Signs/Intake and Output Vital Signs (last 24 hours): Temp Pulse Resp BP Pulse Ox 98.5 F 65 21 106/72 96 12/18/17 11:55 12/18/17 11:55 12/18/17 11:55 12/18/17 11:55 12/18/17 06:00 Intake and Output: 12/18/17 12/18/17 06:59 18:59 Intake Total 0 Output Total 100 Balance -100 - Medications Medications: Current Medications Albuterol/Ipratropium (Duoneb 3 Mg/0.5 Mg (3 Ml) Ud) 3 ml IH [id number] PRN PRN Reason: Shortness of Breath Apixaban (Eliquis) 5 mg PO BID [facility] PRN Reason: Protocol Last Admin: 12/18/17 09:10 Dose: 5 mg Benzocaine/Menthol (Cepacol Sore Throat) 1 mercedes MT Q2H PRN PRN Reason: Sore Throat Gabapentin (Neurontin) 400 mg PO TID [facility]LEXI PRN Reason: Protocol Last Admin: 12/18/17 13:03 Dose: 400 mg Sodium Chloride (Sodium Chloride 0.9%) 1,000 mls @ 100 mls/hr IV .Q10H [facility] Last Admin: 12/18/17 07:29 Dose: 100 mls/hr Metoprolol Tartrate (Lopressor) 25 mg PO BID [facility] Last Admin: 12/18/17 09:11 Dose: 25 mg Ondansetron HCl (Zofran Inj) 4 mg IVP Q6H PRN PRN Reason: Nausea/Vomiting Oxycodone HCl (Oxycodone Immediate Release Tab) 30 mg PO Q6H PRN PRN Reason: Pain, severe (8-10) Trimethoprim/Sulfamethoxazole (Bactrim Ds Tab) 1 tab PO BID [facility] Last Admin: 12/18/17 09:11 Dose: 1 tab - Labs Labs: 12/18/17 06:30 12/18/17 06:30 PT 11.6 SECONDS (9.4-12.5) 12/17/17 18:20 INR 1.02 (0.93-1.08) 12/17/17 18:20 APTT 25.4 Seconds (25.1-36.5) 12/18/17 06:30 - Constitutional Appears: No Acute Distress - Head Exam Head Exam: ATRAUMATIC, NORMAL INSPECTION - Eye Exam Eye Exam: Normal appearance, PERRL Pupil Exam: NORMAL ACCOMODATION - ENT Exam ENT Exam: Mucous Membranes Moist - Respiratory Exam Respiratory Exam: Clear to Ausculation Bilateral. absent: Rales, Rhonchi, Wheezes - Cardiovascular Exam Cardiovascular Exam: REGULAR RHYTHM, +S1, +S2. absent: Gallop, Rubs, Murmur - GI/Abdominal Exam GI & Abdominal Exam: Soft, Normal Bowel Sounds. absent: Tenderness - Extremities Exam Extremities Exam: absent: Calf Tenderness, Pedal Edema - Neurological Exam Neurological Exam: Alert, Awake, CN II-XII Intact, Oriented x3 Neuro motor strength exam: Left Upper Extremity: 5, Right Upper Extremity: 3, Left Lower Extremity: 5, Right Lower Extremity: 3 - Psychiatric Exam Psychiatric exam: Normal Affect, Normal Mood - Skin Skin Exam: Dry, Normal Color, Warm Assessment and Plan - Assessment and Plan (Free Text) Assessment: Ms. Rainey is a 62 yo female with a PMH of Protein C deficiency, asthma, dyslipidemia, hypertension, atrial fibrillation, DVT with IVC filter and on Eliquis, previous CVA, and warfarin induced necrosis admitted for evaluation of right sided weakness and confusion. Plan: CVA vs TIA - Head CT (12/17): no interval acute CT findings as compared to prior 10/22/[address] - Head and Neck CTA (12/17): no significant stenosis or occlusion of the major arteries of the head or neck - c/w Eliquis 5mg PO BID - consulted Neuro Dr Cárdenas, appreciate recommendations - US of carotid and vertebral arteries (12/17): bilateral 20-39% proximal ICA stenoses - CXR (12/17): no active pulmonary disease - PT and OT consulted - patient is AAO x 3, patient was educated on the benefits of going to rehab for physical therapy but adamantly refused History of chronic back pain - c/w gabapentin 400mg PO TID - c/w oxycodone 30mg Q6 PRN for severe pain Leukocytosis, resolved - possible UTI - UA positive for leukocyte esterase - patient is asymptomatic - hold bactrim - urine culture pending JOSEFINA, resolved - most likely secondary to dehydration - c/w IVF: NS @ 100mls/hr History of Atrial Fibrillation - EKG (12/17): sinus tachycardia @ 103, no ST changes - c/w metoprolol 25mg PO BID History of hypertension - hold Lasix for now - allow for permissive HTN at this time, intervene if systolic is greater than 220 Asthma - duoneb PRN History of DVT with IVC filter - c/w Eliquis 5mg PO BID - c/w SCD's Patient case reviewed with and plan approved by attending physician, Dr. Maddox. <Kami Maddox R - Last Filed: 12/18/17 17:32> Objective - Vital Signs/Intake and Output Vital Signs (last 24 hours): Temp Pulse Resp BP Pulse Ox 98.5 F 75 21 106/72 96 12/18/17 11:55 12/18/17 14:00 12/18/17 11:55 12/18/17 11:55 12/18/17 06:00 Intake and Output: 12/18/17 12/18/17 06:59 18:59 Intake Total 0 Output Total 100 Balance -100 - Medications Medications: Current Medications Albuterol/Ipratropium (Duoneb 3 Mg/0.5 Mg (3 Ml) Ud) 3 ml IH [id number] PRN PRN Reason: Shortness of Breath Apixaban (Eliquis) 5 mg PO BID [facility] PRN Reason: Protocol Last Admin: 12/18/17 09:10 Dose: 5 mg Benzocaine/Menthol (Cepacol Sore Throat) 1 mercedes MT Q2H PRN PRN Reason: Sore Throat Gabapentin (Neurontin) 400 mg PO TID [facility]LEXI PRN Reason: Protocol Last Admin: 12/18/17 13:03 Dose: 400 mg Sodium Chloride (Sodium Chloride 0.9%) 1,000 mls @ 100 mls/hr IV .Q10H [facility] Last Admin: 12/18/17 07:29 Dose: 100 mls/hr Metoprolol Tartrate (Lopressor) 25 mg PO BID [facility] Last Admin: 12/18/17 09:11 Dose: 25 mg Ondansetron HCl (Zofran Inj) 4 mg IVP Q6H PRN PRN Reason: Nausea/Vomiting Oxycodone HCl (Oxycodone Immediate Release Tab) 30 mg PO Q6H PRN PRN Reason: Pain, severe (8-10) Last Admin: 12/18/17 15:32 Dose: 30 mg - Labs Labs: 12/18/17 06:30 12/18/17 06:30 PT 11.6 SECONDS (9.4-12.5) 12/17/17 18:20 INR 1.02 (0.93-1.08) 12/17/17 18:20 APTT 25.4 Seconds (25.1-36.5) 12/18/17 06:30 Attending/Attestation - Attestation I have personally seen and examined this patient.: Yes I have fully participated in the care of the patient.: Yes I have reviewed all pertinent clinical information, including history, physical exam and plan: Yes Notes (Text): Patient seen and examined by me at 10:45AM with resident. Case including HPI, physical exam, and physical assessment and plan discussed with resident. Agree with above with following additions/corrections. Patient is a 62-year-old female past medical history significant for protein C deficiency, asthma, dyslipidemia, hypertension, atrial fibrillation, DVT with IVC filter placement maintained on Eliquis, CVA, and warfarin-induced necrosis that presented to the emergency room with right-sided weakness and confusion. Confusion has resolved. Patient feels that her her right side is still weaker than her normal weakness. Patient worked with physical therapy and was able to ambulate with walker. Discussed acute and NOAM with patient at length. Patient is adamantly refusing and states she will be going home. Patient denies chest pain or shortness of breath. No abdominal pain, nausea, or vomiting. No fevers or chills. No headaches or dizziness. No dysuria. Physical exam: Gen: Awake and alert sitting up in bed in no acute distress HEENT: Normocephalic atraumatic. Extraocular muscles intact, pupils equal reactive. Oropharynx is pink and moist, no pharyngeal erythema or exudate appreciated. Neck is supple. Cardiovascular: Normal rhythm. Normal S1-S2. No murmurs, rubs, or gallops appreciated Pulmonary: Normal respiratory effort. No rhonchi, rales or wheezing appreciated. Gastrointestinal: Soft, nontender, nondistended, positive bowel sounds all 4 quadrants, no guarding Musculoskeletal: Moves all extremities, no calf tenderness, decreased range of motion right upper and lower extremity Central nervous system: AAO x 3, 3/5 muscle strength right upper and lower extremity when compared to left. CN 2-12 grossly intact Dermatologic: Skin warm and dry Assessment and plan: Patient is a 62-year-old female past medical history significant for protein C deficiency, asthma, dyslipidemia, hypertension, atrial fibrillation, DVT with IVC filter placement maintained on Eliquis, CVA, and warfarin-induced necrosis that presented to the emergency room with right- sided weakness and confusion. 1. Right sided weakness. Has underlying chronic right sided weakness from previous CVA. Head CT per radiologist shows no interval acute CT findings as compared prior head CT on 10/22/2017; limited diffuse cerebral atrophy, age appropriate. CTA head and neck per radiologist shows no significant stenosis and no occlusion of the major arteries of the head or neck. Carotid ultrasound per radiologist show bilateral 20-39% proximal ICA stenosis. Neurology consulted , follow-up recommendations. 2-D echo on 08/28/2017 per biological science technician showed an EF of 64.3% normal left ventricular function (please see official report for full details). Patient is refusing any kind of physical rehabilitation. This was discussed at length with patient. Importance of acute or subacute rehabilitation was discussed with patient. Patient is adamantly refusing. 2. Chronic back pain. Continue home gabapentin. Continue home oxycodone, CUFF MATCHER reviewed, also confirmed with patient's pharmacy 3. Leukocytosis. Likely reactive. Resolved. Continue to monitor 4. Abnormal urinalysis. Patient asymptomatic. Bactrim stopped. Follow-up urine culture 5. Chronic anemia. No signs of bleeding. Continue to monitor 6. JOSEFINA. Likely secondary to dehydration. Resolved with IV fluids 7. Paroxysmal atrial fibrillation. Now in sinus rhythm. Continue Eliquis and metoprolol 8. Essential Hypertension. Continue metoprolol 9. History of asthma. Not in acute exacerbation. Placed on nebulizer treatments as needed 10. History of DVT. Status post IVC filter. Continue Eliquis 11. History of protein C deficiency. Continue with Eliquis 12. DVT prophylaxis. Janethquis Case was discussed in detail with patient and medical underwriter at bedside regarding current diagnosis and treatment plan.
[2017-12-18] MEDS: oxyCODONE 30 mg Immediate Release Tab PO PRN ×2 (15:32→22:37)
[2017-12-19 01:03] VITALS: RESP 18
[2017-12-19] MEDS: oxyCODONE 30 mg Immediate Release Tab PO PRN ×2 (09:29→19:49)
--- NOTE | 2017-12-19 11:14 | CP.PCM.PN ---
<Ruy Lai - Last Filed: 12/19/17 13:37> Subjective - Date & Time of Evaluation Date of Evaluation: 12/19/17 Time of Evaluation: 13:38 - Subjective Subjective: Ruy Lai D.O. PGY1 -- Human Resources Training Manager -- Medicine Progress Note Patient was seen and examined at bedside this morning. Patient reports vaginal bleeding overnight, but denies any pain in the area. Upon further inquiry, the patient reports she noticed light blood on wiping the area, but denies any gregorio blood. Patient continues to have right-sided weakness and a headache. Patient otherwise denies dysuria, fevers, fatigue, chills, chest pain, shortness of breath, abdominal pain, nausea, vomiting and/or diarrhea. Objective - Vital Signs/Intake and Output Vital Signs (last 24 hours): Temp Pulse Resp BP Pulse Ox 99 F 88 18 99/78 L 97 12/19/17 06:00 12/19/17 10:31 12/19/17 06:00 12/19/17 10:31 12/19/17 00:01 Intake and Output: 12/19/17 12/19/17 06:59 18:59 Intake Total 540 Output Total 2 Balance 538 - Medications Medications: Current Medications Albuterol/Ipratropium (Duoneb 3 Mg/0.5 Mg (3 Ml) Ud) 3 ml IH [id number] PRN PRN Reason: Shortness of Breath Apixaban (Eliquis) 5 mg PO BID ALEXI PRN Reason: Protocol Last Admin: 12/19/17 10:31 Dose: 5 mg Benzocaine/Menthol (Cepacol Sore Throat) 1 mercedes MT Q2H PRN PRN Reason: Sore Throat Gabapentin (Neurontin) 400 mg PO TID ALEXI PRN Reason: Protocol Last Admin: 12/19/17 10:31 Dose: 400 mg Ceftriaxone Sodium (Rocephin 1 Gram Ivpb) 1 gm in 100 mls @ 100 mls/hr IVPB DAILY ALEXI PRN Reason: Protocol Metoprolol Tartrate (Lopressor) 25 mg PO BID [facility] Last Admin: 12/19/17 10:31 Dose: 25 mg Ondansetron HCl (Zofran Inj) 4 mg IVP Q6H PRN PRN Reason: Nausea/Vomiting Last Admin: 12/18/17 20:24 Dose: 4 mg Oxycodone HCl (Oxycodone Immediate Release Tab) 30 mg PO Q6H PRN PRN Reason: Pain, severe (8-10) Last Admin: 12/19/17 09:29 Dose: 30 mg - Labs Labs: 12/18/17 06:30 12/18/17 06:30 PT 11.6 SECONDS (9.4-12.5) 12/17/17 18:20 INR 1.02 (0.93-1.08) 12/17/17 18:20 APTT 25.4 Seconds (25.1-36.5) 12/18/17 06:30 - Constitutional Appears: Non-toxic, No Acute Distress - Head Exam Head Exam: ATRAUMATIC, NORMAL INSPECTION, NORMOCEPHALIC - Eye Exam Eye Exam: EOMI, Normal appearance - ENT Exam ENT Exam: Mucous Membranes Moist, Normal Exam - Neck Exam Neck Exam: Full ROM, Normal Inspection - Respiratory Exam Respiratory Exam: Clear to Ausculation Bilateral, NORMAL BREATHING PATTERN. absent: Rales, Wheezes, Respiratory Distress - Cardiovascular Exam Cardiovascular Exam: RRR. absent: Gallop, Murmur - GI/Abdominal Exam GI & Abdominal Exam: Soft, Normal Bowel Sounds. absent: Tenderness - Extremities Exam Extremities Exam: absent: Pedal Edema, Tenderness - Neurological Exam Neurological Exam: Alert, Awake, CN II-XII Intact, Oriented x3 - Psychiatric Exam Psychiatric exam: Normal Affect, Normal Mood - Skin Skin Exam: Dry, Intact, Normal Color, Warm Assessment and Plan - Assessment and Plan (Free Text) Assessment: 62-year-old female with a past medical history of Protein C deficiency, asthma, dyslipidemia, hypertension, atrial fibrillation, DVT with IVC filter and on Eliquis, previous CVA, and warfarin induced necrosis admitted for evaluation of right-sided weakness and confusion. Right-sided weakness, improving - Etiology: TIA vs CVA - MRI of brain obtained: No acute intracranial abnormality. No evidence for acute infarction. Old lacunar infarction on the right paramedian mary kay - Head CT (12/17): no interval acute CT findings as compared to prior 10/22/[address] - Head and Neck CTA (12/17): no significant stenosis or occlusion of the major arteries of the head or neck - Continue Eliquis 5mg PO BID - Consulted Neuro Dr Korya, appreciate recommendations - US of carotid and vertebral arteries (12/17): bilateral 20-39% proximal ICA stenoses - Chest X-Ray (12/17): no active pulmonary disease - PT and OT consulted for evaluation and treatment - Patient is alert and oriented x 3, patient was educated on the benefits of going to rehab for physical therapy but adamantly refused Urinary Tract Infection, asymptomatic - Urine cultures positive for gram positive cocci - UA positive for leukocyte esterase - Patient is asymptomatic - Bactrim discontinued - Start Ceftraixone 1 g IVPB Daily Vaginal Bleeding, improved - Hemoglobin downtrending 9.6 from 11.6 - IVF discontinued - No reports of gregorio blood observed by nurses - Rashmi HOFFGYTez recommended outpatient follow-up History of chronic back pain - Continue gabapentin 400mg PO TID - Continue oxycodone 30mg Q6 PRN for severe pain JOSEFINA, resolved - Likely secondary to dehydration - IVF: NS @ 100mls/hr discontinued History of Atrial Fibrillation - EKG (12/17): sinus tachycardia @ 103, no ST changes - Continue metoprolol 25mg PO BID History of hypertension - Continue to hold lasix - Allow for permissive HTN at this time, intervene if systolic is greater than 220 Asthma - Duoneb PRN History of DVT with IVC filter - Continue Eliquis 5mg PO BID - Continue SCD's Patient seen and case reviewed with Attending Physician, Dr. Tan Lai, PGY1 <Kami Maddox R - Last Filed: 12/19/17 15:54> Objective - Vital Signs/Intake and Output Vital Signs (last 24 hours): Temp Pulse Resp BP Pulse Ox 97.9 F 69 18 116/66 97 12/19/17 12:00 12/19/17 14:00 12/19/17 12:00 12/19/17 14:54 12/19/17 00:01 - Medications Medications: Current Medications Albuterol/Ipratropium (Duoneb 3 Mg/0.5 Mg (3 Ml) Ud) 3 ml IH [id number] PRN PRN Reason: Shortness of Breath Apixaban (Eliquis) 5 mg PO BID ALEXI PRN Reason: Protocol Last Admin: 12/19/17 10:31 Dose: 5 mg Benzocaine/Menthol (Cepacol Sore Throat) 1 mercedes MT Q2H PRN PRN Reason: Sore Throat Furosemide (Lasix) 40 mg PO DAILY [facility] Last Admin: 12/19/17 14:54 Dose: 40 mg Gabapentin (Neurontin) 400 mg PO TID ALEXI PRN Reason: Protocol Last Admin: 12/19/17 14:06 Dose: 400 mg Ceftriaxone Sodium (Rocephin 1 Gram Ivpb) 1 gm in 100 mls @ 100 mls/hr IVPB DAILY ALEXI PRN Reason: Protocol Last Admin: 12/19/17 14:06 Dose: 100 mls/hr Insulin Human Regular (Humulin R Low) 0 units SC ACHS ALEXI PRN Reason: Protocol Metoprolol Tartrate (Lopressor) 25 mg PO BID [facility] Last Admin: 12/19/17 10:31 Dose: 25 mg Ondansetron HCl (Zofran Inj) 4 mg IVP Q6H PRN PRN Reason: Nausea/Vomiting Last Admin: 12/18/17 20:24 Dose: 4 mg Oxycodone HCl (Oxycodone Immediate Release Tab) 30 mg PO Q6H PRN PRN Reason: Pain, severe (8-10) Last Admin: 12/19/17 09:29 Dose: 30 mg - Labs Labs: PT 11.6 SECONDS (9.4-12.5) 12/17/17 18:20 INR 1.02 (0.93-1.08) 12/17/17 18:20 APTT 25.4 Seconds (25.1-36.5) 12/18/17 06:30 Attending/Attestation - Attestation I have personally seen and examined this patient.: Yes I have fully participated in the care of the patient.: Yes I have reviewed all pertinent clinical information, including history, physical exam and plan: Yes Notes (Text): Patient seen and examined by me at 10:00AM with resident. Case including HPI, physical exam, and physical assessment and plan discussed with resident. Agree with above with following additions/corrections. Patient states that she is feeling better today. Right-sided weakness is improved today. Discussed acute and NOAM again with patient at length. Patient is still adamantly refusing. Today, patient complains of vaginal bleeding. States that she noticed blood 2 times when wiping. No blood seen by nurse. Patient states that she also had some pain at the start of urination today. Patient denies chest pain or shortness of breath. No abdominal pain, nausea, or vomiting. No fevers or chills. No headaches or dizziness. Physical exam: Gen: Awake and alert sitting up in bed in no acute distress HEENT: Normocephalic atraumatic. Extraocular muscles intact, pupils equal reactive. Oropharynx is pink and moist, no pharyngeal erythema or exudate appreciated. Neck is supple. Cardiovascular: Normal rhythm. Normal S1-S2. No murmurs, rubs, or gallops appreciated Pulmonary: Normal respiratory effort. No rhonchi, rales or wheezing appreciated. Gastrointestinal: Soft, nontender, nondistended, positive bowel sounds all 4 quadrants, no guarding Musculoskeletal: Moves all extremities, no calf tenderness, decreased range of motion right upper and lower extremity, positive lower extremity edema Central nervous system: AAO x 3, 4/5 muscle strength right upper and lower extremity when compared to left. CN 2-12 grossly intact Dermatologic: Skin warm and dry Assessment and plan: Patient is a 62-year-old female past medical history significant for protein C deficiency, asthma, dyslipidemia, hypertension, atrial fibrillation, DVT with IVC filter placement maintained on Eliquis, CVA, and warfarin-induced necrosis that presented to the emergency room with right- sided weakness and confusion. 1. Right sided weakness. Has underlying chronic right sided weakness from previous CVA. Improved. Neurology following recommendations appreciated. MRI brain per radiologist shows no acute intracranial abnormality, no evidence of acute infarction, old lacunar infarct in the right paramedian mary kay. Head CT per radiologist shows no interval acute CT findings as compared prior head CT on ; limited diffuse cerebral atrophy, age appropriate. CTA head and neck per radiologist shows no significant stenosis and no occlusion of the major arteries of the head or neck. Carotid ultrasound per radiologist show bilateral 20-39% proximal ICA stenosis. 2-D echo on 08/28/2017 per estimator printing showed an EF of 64.3% normal left ventricular function (please see official report for full details). Importance of acute or subacute rehabilitation was discussed with patient. Patient is adamantly refusing. 2. Vaginal bleeding. Was discussed with SOLAR FABRICATION TECHNICIAN. Per SOLAR FABRICATION TECHNICIAN, no current intervention. Patient to follow-up as an outpatient. Patient states she noticed a little blood when wiping 2 times. No gross hematuria. 3. Abnormal urinalysis. Urine culture is positive for gram-positive cocci. Patient is complaining today of pain on urination. Started on Rocephin 1 g IV piggyback daily. 4. Chronic back pain. Continue home gabapentin. Continue home oxycodone, SPECIMEN TECHNICIAN reviewed, also confirmed with patient's pharmacy 5. Leukocytosis. Likely reactive. Resolved. Continue to monitor 6. Abnormal urinalysis. Patient asymptomatic. Bactrim stopped. Follow-up urine culture 7. Chronic anemia. Hemoglobin downtrending likely secondary to dilutional effect. IV fluids stopped. Continue to monitor 8. JOSEFINA. Likely secondary to dehydration. Resolved with IV fluids 9. Paroxysmal atrial fibrillation. Now in sinus rhythm. Continue Eliquis and metoprolol 10. Essential Hypertension. Continue metoprolol 11. History of asthma. Not in acute exacerbation. Continue nebulizer treatments as needed 12. History of DVT. Status post IVC filter. Continue Eliquis 13. History of protein C deficiency. Continue with Eliquis 14. DVT prophylaxis. Surendra Case was discussed in detail with patient and medical staffing coordinator at bedside regarding current diagnosis and treatment plan.
--- NOTE | 2017-12-19 13:31 | MRI ---
Date of service: 12/19/2017 PROCEDURE: MRI BRAIN WITHOUT CONTRAST HISTORY: stroke evaluation COMPARISON: Noncontrast head CT from 12/17/2017 TECHNIQUE: Multiplanar, multisequence MR images of the brain were obtained without intravenous contrast enhancement. FINDINGS: HEMORRHAGE: None DWI: No evidence of an acute or early subacute infarction. BRAIN PARENCHYMA: There is an old lacunar infarction in the right paramedian mary kay. There is no mass, mass effect or abnormal extra-axial fluid collection. There is no territorial infarction. There is a partially empty sella, otherwise the midline sagittal structures are normal. VENTRICLES: The ventricles are normal in size, shape and configuration. CRANIUM: There is normal bone marrow signal pattern. ORBITS: Grossly unremarkable. PARANASAL SINUSES/MASTOIDS: Predominantly clear VASCULAR SYSTEM: There are normal signal voids in the larger intracranial arteries. OTHER FINDINGS: None. IMPRESSION: No acute intracranial abnormality. Specifically, no evidence for acute infarction. Old lacunar infarction in the right paramedian mary kay.
[2017-12-19] MEDS: cefTRIAXone 1 gm 1 GM/100 ML BAG IVPB SCH (14:06)
[2017-12-19] MEDS ORDERED: Insulin Regular 1 UNITS/0.01 ML ML SC ONE (14:53)
[2017-12-19] MEDS: Insulin Reg-LOW-Coverage SC SCH ×2 (17:00→21:49)
[2017-12-19] MEDS: Sodium Chloride 0.9% 1,000 ML IV SCH ×2 (19:52→23:10)
[2017-12-20] MEDS: oxyCODONE 30 mg Immediate Release Tab PO PRN ×3 (03:24→18:11)
--- NOTE | 2017-12-20 06:56 | CP.PCM.PN ---
Subjective - Date & Time of Evaluation Date of Evaluation: 12/20/17 Time of Evaluation: 06:53 - Subjective Subjective: Ms. Redd Lam was seen and examined at the bedside. She is alert, oriented , denies any headache, dizziness, lightheadedness. She is able to recal the incident prior to admission and follows simple commands with her right side is weaker than the left. She is able to speak clearly. According to the staff, he had an episode of verbalizing s/s similar to prior to admission. However, upon staff assessment there was no new neuro deficits. MRI of the brain done showed No acute intracranial abnormality. Specifically, no evidence for acute infarction.Old lacunar infarction in the right paramedian mary kay. Objective - Vital Signs/Intake and Output Vital Signs (last 24 hours): Temp Pulse Resp BP Pulse Ox 97.7 F 73 18 98/61 L 99 12/20/17 05:48 12/20/17 05:48 12/20/17 05:48 12/20/17 05:48 12/20/17 05:48 Intake and Output: 12/19/17 12/20/17 18:59 06:59 Intake Total 780 580 Balance 780 580 - Medications Medications: Current Medications Albuterol/Ipratropium (Duoneb 3 Mg/0.5 Mg (3 Ml) Ud) 3 ml IH [id number] PRN PRN Reason: Shortness of Breath Apixaban (Eliquis) 5 mg PO BID ALEXI PRN Reason: Protocol Last Admin: 12/19/17 18:04 Dose: 5 mg Benzocaine/Menthol (Cepacol Sore Throat) 1 mercedes MT Q2H PRN PRN Reason: Sore Throat Furosemide (Lasix) 40 mg PO DAILY [facility] Last Admin: 12/19/17 14:54 Dose: 40 mg Gabapentin (Neurontin) 400 mg PO TID ALEXI PRN Reason: Protocol Last Admin: 12/19/17 18:04 Dose: 400 mg Ceftriaxone Sodium (Rocephin 1 Gram Ivpb) 1 gm in 100 mls @ 100 mls/hr IVPB DAILY ALEXI PRN Reason: Protocol Last Admin: 12/19/17 14:06 Dose: 100 mls/hr Insulin Human Regular (Humulin R Low) 0 units SC ACHS ALEXI PRN Reason: Protocol Last Admin: 12/19/17 21:49 Dose: Not Given Metoprolol Tartrate (Lopressor) 25 mg PO BID ALEXI Last Admin: 12/19/17 18:04 Dose: 25 mg Ondansetron HCl (Zofran Inj) 4 mg IVP Q6H PRN PRN Reason: Nausea/Vomiting Last Admin: 12/18/17 20:24 Dose: 4 mg Oxycodone HCl (Oxycodone Immediate Release Tab) 30 mg PO Q6H PRN PRN Reason: Pain, severe (8-10) Last Admin: 12/20/17 03:24 Dose: 30 mg - Labs Labs: PT 11.6 SECONDS (9.4-12.5) 12/17/17 18:20 INR 1.02 (0.93-1.08) 12/17/17 18:20 APTT 25.4 Seconds (25.1-36.5) 12/18/17 06:30 - Constitutional Appears: No Acute Distress - Head Exam Head Exam: NORMAL INSPECTION - Eye Exam Pupil Exam: PERRL - Neurological Exam Neurological Exam: Alert, Awake, Oriented x3 Neuro motor strength exam: Left Upper Extremity: 5, Right Upper Extremity: 4, Left Lower Extremity: 5, Right Lower Extremity: 2/1 Additional comments: alert, oriented, follows commands, sensation is intact. Assessment and Plan (1) History of CVA (cerebrovascular accident) Assessment & Plan: Case discussed with Dr. Cárdenas, continue all current medical, physical, occupational therapies. Recommend hydration, blood pressure control, treat any electrolyte abnormalities, keep head of bed elevated at least 30 degrees. Status: Acute
[2017-12-20] MEDS: Insulin Reg-LOW-Coverage SC SCH ×4 (08:41→21:47)
[2017-12-20] MEDS: cefTRIAXone 1 gm 1 GM/100 ML BAG IVPB SCH (10:39)
[2017-12-20 10:42] LABS: BASO # 0.01 K/mm3 (0.0-2.0); BASO % 0.2 % (0.0-3.0); EOS # 0.2 (0.0-0.7); EOS % 5.5 % (1.5-5.0); GRAN # 2.19 (1.4-6.5); GRAN % 50.6 % (50.0-68.0); HEMOGLOBIN 9.9 g/dL (12.0-16.0); LYMPH # 1.4 (1.2-3.4); LYMPH % 33.3 % (22.0-35.0); MEAN CELL VOLUME 92.2 fl (80.0-105.0); MEAN CORPUSCULAR HEMOGLOBIN 29.6 pg (25.0-35.0); MEAN CORPUSCULAR HGB CONC 32.1 g/dl (31.0-37.0); MEAN PLATELET VOLUME 8.6 fl (7.0-11.0); MONO # 0.5 (0.1-0.6); MONO % 10.4 % (1.0-6.0); RBC 3.34 10^6/uL (3.5-6.1); RED CELL DISTRIBUTION WIDTH 14.8 % (11.5-14.5); WHITE BLOOD COUNT 4.3 10^3/ul (4.5-11.0)
[2017-12-20 11:07] LABS: ALB/GLOB RATIO 1.1 (1.1-1.8); ALBUMIN 3.3 g/dL (3.0-4.8); ALT/SGPT 80 U/L (7-56); AST/SGOT 97 U/L (14-36); BLOOD UREA NITROGEN 14 mg/dL (7-21); CALCIUM 8.8 mg/dL (8.4-10.5); GFR AFRICAN-AMERICAN > 60; GFR NON-AFRICAN AMERICAN > 60
--- NOTE | 2017-12-20 14:38 | CP.PCM.PN ---
<Ruy Lai - Last Filed: 12/20/17 18:14> Subjective - Date & Time of Evaluation Date of Evaluation: 12/20/17 Time of Evaluation: 14:19 - Subjective Subjective: Ruy Lai D.O. PGY1 -- City Surveyor -- Medicine Progress Note Patient was seen and examined at bedside this morning. Patient denies any acute events overnight. Patient admits to some abdominal tenderness, however denies diarrhea and/or constipation. Review of systems is otherwise unremarkable for bloody discharge, dysuria, fevers, fatigue, chills, chest pain, shortness of breath, nausea, and/or vomiting. Objective - Vital Signs/Intake and Output Vital Signs (last 24 hours): Temp Pulse Resp BP Pulse Ox 97.8 F 78 18 109/66 99 12/20/17 12:00 12/20/17 12:00 12/20/17 12:00 12/20/17 12:00 12/20/17 05:48 Intake and Output: 12/20/17 12/20/17 06:59 18:59 Intake Total 580 Balance 580 - Medications Medications: Current Medications Albuterol/Ipratropium (Duoneb 3 Mg/0.5 Mg (3 Ml) Ud) 3 ml IH [id number] PRN PRN Reason: Shortness of Breath Apixaban (Eliquis) 5 mg PO BID [facility] PRN Reason: Protocol Last Admin: 12/20/17 10:38 Dose: 5 mg Benzocaine/Menthol (Cepacol Sore Throat) 1 mercedes MT Q2H PRN PRN Reason: Sore Throat Last Admin: 12/20/17 10:36 Dose: 1 mercedes Furosemide (Lasix) 40 mg PO DAILY [facility] Last Admin: 12/20/17 10:37 Dose: 40 mg Gabapentin (Neurontin) 400 mg PO TID [facility] PRN Reason: Protocol Last Admin: 12/20/17 10:36 Dose: 400 mg Insulin Human Regular (Humulin R Low) 0 units SC ACHS [facility] PRN Reason: Protocol Last Admin: 12/20/17 13:20 Dose: Not Given Lactobacillus Acidophilus (Bacid Acidophilus) 1 cap PO BID [facility] Metoprolol Tartrate (Lopressor) 25 mg PO BID [facility] Last Admin: 12/20/17 10:38 Dose: 25 mg Ondansetron HCl (Zofran Inj) 4 mg IVP Q6H PRN PRN Reason: Nausea/Vomiting Last Admin: 12/18/17 20:24 Dose: 4 mg Oxycodone HCl (Oxycodone Immediate Release Tab) 30 mg PO Q6H PRN PRN Reason: Pain, severe (8-10) Last Admin: 12/20/17 12:25 Dose: 30 mg Trimethoprim/Sulfamethoxazole (Bactrim Ds Tab) 1 tab PO BID [facility] PRN Reason: Protocol - Labs Labs: 12/20/17 10:30 12/20/17 10:30 PT 11.6 SECONDS (9.4-12.5) 12/17/17 18:20 INR 1.02 (0.93-1.08) 12/17/17 18:20 APTT 25.4 Seconds (25.1-36.5) 12/18/17 06:30 - Constitutional Appears: Non-toxic, No Acute Distress - Head Exam Head Exam: ATRAUMATIC, NORMAL INSPECTION, NORMOCEPHALIC - Eye Exam Eye Exam: EOMI, Normal appearance - ENT Exam ENT Exam: Mucous Membranes Moist - Neck Exam Neck Exam: Full ROM - Respiratory Exam Respiratory Exam: NORMAL BREATHING PATTERN - Cardiovascular Exam Cardiovascular Exam: REGULAR RHYTHM - GI/Abdominal Exam GI & Abdominal Exam: Soft, Tenderness (mild ), Normal Bowel Sounds - Extremities Exam Extremities Exam: Normal Inspection. absent: Tenderness - Neurological Exam Neurological Exam: Alert, Awake, Oriented x3 - Psychiatric Exam Psychiatric exam: Normal Affect, Normal Mood - Skin Skin Exam: Dry, Intact, Normal Color, Warm Assessment and Plan - Assessment and Plan (Free Text) Assessment: 62-year-old female with a past medical history of Protein C deficiency, asthma, dyslipidemia, hypertension, atrial fibrillation, DVT with IVC filter and on Eliquis, previous CVA, and warfarin induced necrosis admitted for evaluation of right-sided weakness and confusion. Right-sided weakness, improving - Etiology: TIA vs CVA - MRI of brain obtained: No acute intracranial abnormality. No evidence for acute infarction. Old lacunar infarction on the right paramedian mary kay - Head CT (12/17): no interval acute CT findings as compared to prior 10/22/[address] - Head and Neck CTA (12/17): no significant stenosis or occlusion of the major arteries of the head or neck - Continue Eliquis 5mg PO BID - Continue physical and occupational therapy, as per Neuro recommendation - Elevate bed at 30 degrees, per Neuro recommendation - US of carotid and vertebral arteries (12/17): bilateral 20-39% proximal ICA stenoses - Chest X-Ray (12/17): no active pulmonary disease - Patient is alert and oriented x 3, patient was educated on the benefits of going to rehab for physical therapy but adamantly refused - Consulted Neuro, recommendations appreciated Urinary Tract Infection, asymptomatic - Urine cultures positive for gram positive cocci - Urinalysis positive for leukocyte esterase - Patient is asymptomatic - Continue Ceftraixone 1 g IVPB Daily Abnormal Liver Function Tests, uptrending - AST: 97 ALT: 80 - Abdominal ultrasound obtained, results pending - Monitor Vaginal Bleeding, resolved - Hemoglobin stable, will monitor - IVF discontinued - No pads requested by patient, or gregorio blood observed by nurses - Rashmi CABALLERO recommended outpatient follow-up History of chronic back pain - Continue gabapentin 400mg PO TID - Continue oxycodone 30mg Q6 PRN for severe pain JOSEFINA, resolved - Likely secondary to dehydration History of Atrial Fibrillation - EKG (12/17): sinus tachycardia @ 103, no ST changes - Continue metoprolol 25mg PO BID History of hypertension - Continue to hold lasix - Continue to allow for permissive HTN at this time, intervene if systolic is greater than 220 Asthma - Duoneb PRN History of DVT with IVC filter - Continue Eliquis 5mg PO BID - Continue SCD's Patient seen and case reviewed with Attending Physician, Dr. Tan Lai, PGY1 <Kami Maddox R - Last Filed: 12/20/17 20:13> Objective - Vital Signs/Intake and Output Vital Signs (last 24 hours): Temp Pulse Resp BP Pulse Ox 97.8 F 82 18 110/77 97 12/20/17 17:48 12/20/17 17:48 12/20/17 17:48 12/20/17 17:48 12/20/17 17:48 Intake and Output: 12/20/17 12/21/17 18:59 06:59 Intake Total 300 Output Total 600 Balance -300 - Medications Medications: Current Medications Albuterol/Ipratropium (Duoneb 3 Mg/0.5 Mg (3 Ml) Ud) 3 ml IH [id number] PRN PRN Reason: Shortness of Breath Apixaban (Eliquis) 5 mg PO BID [facility] PRN Reason: Protocol Last Admin: 12/20/17 18:07 Dose: 5 mg Benzocaine/Menthol (Cepacol Sore Throat) 1 mercedes MT Q2H PRN PRN Reason: Sore Throat Last Admin: 12/20/17 10:36 Dose: 1 mercedes Furosemide (Lasix) 40 mg PO DAILY [facility] Last Admin: 12/20/17 10:37 Dose: 40 mg Gabapentin (Neurontin) 400 mg PO TID [facility] PRN Reason: Protocol Last Admin: 12/20/17 18:04 Dose: 400 mg Insulin Human Regular (Humulin R Low) 0 units SC ACHS [facility] PRN Reason: Protocol Last Admin: 12/20/17 18:06 Dose: Not Given Lactobacillus Acidophilus (Bacid Acidophilus) 1 cap PO BID [facility] Last Admin: 12/20/17 18:04 Dose: 1 cap Metoprolol Tartrate (Lopressor) 25 mg PO BID [facility] Last Admin: 12/20/17 18:05 Dose: 25 mg Ondansetron HCl (Zofran Inj) 4 mg IVP Q6H PRN PRN Reason: Nausea/Vomiting Last Admin: 12/18/17 20:24 Dose: 4 mg Oxycodone HCl (Oxycodone Immediate Release Tab) 30 mg PO Q6H PRN PRN Reason: Pain, severe (8-10) Last Admin: 12/20/17 18:11 Dose: 30 mg Trimethoprim/Sulfamethoxazole (Bactrim Ds Tab) 1 tab PO BID [facility] PRN Reason: Protocol Last Admin: 12/20/17 18:11 Dose: 1 tab - Labs Labs: 12/20/17 10:30 12/20/17 10:30 PT 11.6 SECONDS (9.4-12.5) 12/17/17 18:20 INR 1.02 (0.93-1.08) 12/17/17 18:20 APTT 25.4 Seconds (25.1-36.5) 12/18/17 06:30 Attending/Attestation - Attestation I have personally seen and examined this patient.: Yes I have fully participated in the care of the patient.: Yes I have reviewed all pertinent clinical information, including history, physical exam and plan: Yes Notes (Text): Patient seen and examined by me at 09:35AM with resident. Case including HPI, physical exam, and physical assessment and plan discussed with resident. Agree with above with following additions/corrections. Patient states that she is feeling pretty good. Right-sided weakness at baseline. Patient ambulating without assistance. States has "a little blood when wiping after urinating." No dysuria today. Patient denies chest pain or shortness of breath. No abdominal pain, nausea, or vomiting. No fevers or chills. No headaches or dizziness. Physical exam: Gen: Awake and alert sitting up in bed in no acute distress HEENT: Normocephalic atraumatic. Extraocular muscles intact, pupils equal reactive. Oropharynx is pink and moist, no pharyngeal erythema or exudate appreciated. Neck is supple. Cardiovascular: Normal rhythm. Normal S1-S2. No murmurs, rubs, or gallops appreciated Pulmonary: Normal respiratory effort. No rhonchi, rales or wheezing appreciated. Gastrointestinal: Soft, nontender, nondistended, positive bowel sounds all 4 quadrants, no guarding Musculoskeletal: Moves all extremities, no calf tenderness, decreased range of motion right upper and lower extremity, positive lower extremity edema Central nervous system: AAO x 3, 4/5 muscle strength right upper and lower extremity when compared to left. CN 2-12 grossly intact Dermatologic: Skin warm and dry Assessment and plan: Patient is a 62-year-old female past medical history significant for protein C deficiency, asthma, dyslipidemia, hypertension, atrial fibrillation, DVT with IVC filter placement maintained on Eliquis, CVA, and warfarin-induced necrosis that presented to the emergency room with right- sided weakness and confusion. 1. Elevated LFTs. Uptrending. Follow up adominal ultrasound. Maybe secondary to antibiotics. No abdominal pain. Continue to monitor. 2. Right sided weakness. Has underlying chronic right sided weakness from previous CVA. Improved, patient ambulating without assistance today as seen by me. Neurology following recommendations appreciated. MRI brain per radiologist shows no acute intracranial abnormality, no evidence of acute infarction, old lacunar infarct in the right paramedian mary kay. Head CT per radiologist shows no interval acute CT findings as compared prior head CT on 10/22/2017; limited diffuse cerebral atrophy, age appropriate. CTA head and neck per radiologist shows no significant stenosis and no occlusion of the major arteries of the head or neck. Carotid ultrasound per radiologist show bilateral 20-39% proximal ICA stenosis. 2-D echo on 08/28/2017 per adzing and boring machine feeder showed an EF of 64.3% normal left ventricular function (please see official report for full details). Importance of acute or subacute rehabilitation was discussed with patient. Patient is adamantly refusing. Patient cleared for discharge by neurology. 3. Vaginal bleeding. Was discussed with SECURITY TEAM LEAD. Per SECURITY TEAM LEAD, no current intervention. Patient to follow-up as an outpatient. Patient states she notices a little blood when wiping. No gross hematuria. H&H stable. 4. Abnormal urinalysis. Urine culture is positive for Staph aureus. Uncomplicated UTI. Placed on Bactrim. 5. Chronic back pain. Continue home gabapentin. Continue home oxycodone, [employer] reviewed, also confirmed with patient's pharmacy 6. Leukocytosis. Likely reactive. Resolved. Continue to monitor 7. Chronic anemia. H&H stable. Continue to monitor 8. JOSEFINA. Likely secondary to dehydration. Resolved with IV fluids 9. Paroxysmal atrial fibrillation. Now in sinus rhythm. Continue Eliquis and metoprolol 10. Essential Hypertension. Continue metoprolol 11. History of asthma. Not in acute exacerbation. Continue nebulizer treatments as needed 12. History of DVT. Status post IVC filter. Continue Eliquis 13. History of protein C deficiency. Continue with Eliquis 14. DVT prophylaxis. Janethquis Case was discussed in detail with patient and medical planner at bedside regarding current diagnosis and treatment plan.
[2017-12-20 17:49] VITALS: O2SAT 97
[2017-12-20] MEDS: Lactobacillus Acidophilus 500 MU Cap PO SCH (18:04)
[2017-12-20] MEDS: Tmp-Smz 800 mg-160 mg DS Tab PO SCH (18:11)
[2017-12-21] MEDS: oxyCODONE 30 mg Immediate Release Tab PO PRN ×2 (00:25→08:08)
[2017-12-21 07:12] LABS: BASO # 0.02 K/mm3 (0.0-2.0); BASO % 0.4 % (0.0-3.0); EOS # 0.2 (0.0-0.7); EOS % 4.9 % (1.5-5.0); GRAN # 1.53 (1.4-6.5); GRAN % 32.7 % (50.0-68.0); HEMOGLOBIN 10.1 g/dL (12.0-16.0); LYMPH # 2.4 (1.2-3.4); LYMPH % 51.6 % (22.0-35.0); MEAN CELL VOLUME 91.5 fl (80.0-105.0); MEAN CORPUSCULAR HEMOGLOBIN 29.7 pg (25.0-35.0); MEAN CORPUSCULAR HGB CONC 32.5 g/dl (31.0-37.0); MEAN PLATELET VOLUME 8.9 fl (7.0-11.0); MONO # 0.5 (0.1-0.6); MONO % 10.4 % (1.0-6.0); RBC 3.4 10^6/uL (3.5-6.1); RED CELL DISTRIBUTION WIDTH 14.8 % (11.5-14.5); WHITE BLOOD COUNT 4.7 10^3/ul (4.5-11.0)
[2017-12-21] MEDS: Insulin Reg-LOW-Coverage SC SCH ×2 (07:30→12:00)
[2017-12-21 07:33] LABS: ALB/GLOB RATIO 1.1 (1.1-1.8); ALBUMIN 3.6 g/dL (3.0-4.8); ALT/SGPT 68 U/L (7-56); AST/SGOT 73 U/L (14-36); BLOOD UREA NITROGEN 15 mg/dL (7-21); CALCIUM 8.8 mg/dL (8.4-10.5); GFR AFRICAN-AMERICAN > 60; GFR NON-AFRICAN AMERICAN > 60
[2017-12-21] MEDS: Tmp-Smz 800 mg-160 mg DS Tab PO SCH (09:12)
[2017-12-21] MEDS: Lactobacillus Acidophilus 500 MU Cap PO SCH (09:13)
[2017-12-21] MEDS ORDERED: Pantoprazole 20 mg EC Tab PO SCH (10:00)
--- NOTE | 2017-12-21 10:35 | US ---
Date of service: 12/21/2017 HISTORY: elevated LFTs COMPARISON: None. TECHNIQUE: Sonographic evaluation of the abdomen. FINDINGS: LIVER: Measures 15.8 cm. Normal echogenicity of the liver parenchyma. No mass. No intrahepatic bile duct dilatation. GALLBLADDER: Small gallstone. No evidence of cholecystitis COMMON BILE DUCT: Measures 9.6 mm. No stones. No dilatation. PANCREAS: Not visualized due to bowel gas RIGHT KIDNEY: Measures 11.2 x 5.0 x 5.3cm. Normal echogenicity. No calculus, mass, or hydronephrosis. There are 2 separate cysts measuring over 2 cm in diameter. LEFT KIDNEY: Measures 10.7 x 5.1 x 4.5cm. Normal echogenicity. No calculus, mass, or hydronephrosis. SPLEEN: Normal in size and contour. No mass. AORTA: No aneurysmal dilatation. IVC: Unremarkable. OTHER FINDINGS: None. IMPRESSION: Unremarkable abdominal sonogram.
[2017-12-21 11:29] VITALS: BP 138/81; PULSE 67; TEMP 98.5
--- NOTE | 2017-12-21 13:52 | CP.PCM.DIS ---
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: Chronic Priority: Medium (7) Protein C deficiency Status: Chronic Priority: Medium (8) A-fib Status: Resolved Priority: Medium (9) Asthma Status: Chronic Priority: Medium (10) Chronic back pain Status: Chronic Priority: Medium (11) Vaginal bleeding Status: Acute Priority: Medium (12) History of DVT (deep vein thrombosis) Status: Resolved Priority: Medium (13) Hypertension Status: Chronic Priority: Medium (14) Dyslipidemia Status: Chronic Priority: Medium Hospital Course - Lab Results Lab Results: Most Recent Lab Values WBC 4.7 10^3/ul (4.5-11.0) 12/21/17 06:30 RBC 3.40 10^6/uL (3.5-6.1) L 12/21/17 06:30 Hgb 10.1 g/dL (12.0-16.0) L 12/21/17 06:30 Hct 31.1 % (36.0-48.0) L 12/21/17 06:30 MCV 91.5 fl (80.0-105.0) 12/21/17 06:30 MCH 29.7 pg (25.0-35.0) 12/21/17 06:30 MCHC 32.5 g/dl (31.0-37.0) 12/21/17 06:30 RDW 14.8 % (11.5-14.5) H 12/21/17 06:30 Plt Count 234 10^3/uL (120.0-450.0) 12/21/17 06:30 MPV 8.9 fl (7.0-11.0) 12/21/17 06:30 Gran % 32.7 % (50.0-68.0) L 12/21/17 06:30 Lymph % (Auto) 51.6 % (22.0-35.0) H 12/21/17 06:30 [place] % (Auto) 10.4 % (1.0-6.0) H 12/21/17 06:30 Eos % (Auto) 4.9 % (1.5-5.0) 12/21/17 06:30 Baso % (Auto) 0.4 % (0.0-3.0) 12/21/17 06:30 Gran # 1.53 (1.4-6.5) 12/21/17 06:30 Lymph # (Auto) 2.4 (1.2-3.4) 12/21/17 06:30 [place] # (Auto) 0.5 (0.1-0.6) 12/21/17 06:30 Eos # (Auto) 0.2 (0.0-0.7) 12/21/17 06:30 Baso # (Auto) 0.02 K/mm3 (0.0-2.0) 12/21/17 06:30 PT 11.6 SECONDS (9.4-12.5) 12/17/17 18:20 INR 1.02 (0.93-1.08) 12/17/17 18:20 APTT 25.4 Seconds (25.1-36.5) 12/18/17 06:30 Sodium 139 mmol/L (132-148) 12/21/17 06:30 Potassium 3.8 mmol/L (3.6-5.0) 12/21/17 06:30 Chloride 102 mmol/L (98-107) 12/21/17 06:30 Carbon Dioxide 26 mmol/L (21-33) 12/21/17 06:30 Anion Gap 15 (10-20) 12/21/17 06:30 BUN 15 mg/dL (7-21) 12/21/17 06:30 Creatinine 0.8 mg/dl (0.7-1.2) 12/21/17 06:30 Est GFR ( Amer) > 60 12/21/17 06:30 Est GFR (Non-Af Amer) > 60 12/21/17 06:30 POC Glucose (mg/dL) 82 mg/dL (65-110) 12/21/17 11:39 Random Glucose 81 mg/dL (70-110) 12/21/17 06:30 Hemoglobin A1c 4.9 % (4.2-6.5) 12/17/17 17:25 Calcium 8.8 mg/dL (8.4-10.5) 12/21/17 06:30 Total Bilirubin 0.2 mg/dL (0.2-1.3) 12/21/17 06:30 AST 73 U/L (14-36) H D 12/21/17 06:30 ALT 68 U/L (7-56) H 12/21/17 06:30 Alkaline Phosphatase 74 U/L (38-126) 12/21/17 06:30 Total Creatine Kinase 1576 U/L (35-230) H 12/18/17 06:30 CK-MB (CK-2) 10.5 ng/mL (0.0-3.6) H 12/18/17 06:30 CK-MB (CK-2) % 0.7 % (2.5-3.0) L 12/18/17 06:30 Troponin I < 0.01 ng/mL 12/17/17 17:25 Total Protein 6.8 g/dL (5.8-8.3) 12/21/17 06:30 Albumin 3.6 g/dL (3.0-4.8) 12/21/17 06:30 Globulin 3.2 gm/dL 12/21/17 06:30 Albumin/Globulin Ratio 1.1 (1.1-1.8) 12/21/17 06:30 Triglycerides 93 mg/dL (35-160) 12/18/17 06:30 Cholesterol 149 mg/dL (130-200) 12/18/17 06:30 LDL Cholesterol Direct 49 mg/dL (0-129) 12/18/17 06:30 HDL Cholesterol 63 mg/dL (29-60) H 12/18/17 06:30 Urine Color Yellow (YELLOW) 12/17/17 10:30 Urine Appearance Clear (CLEAR) 12/17/17 10:30 Urine pH 6.0 (4.7-8.0) 12/17/17 10:30 Ur Specific [place] <= 1.005 (1.005-1.035) 12/17/17 10:30 Urine Protein Negative mg/dL (<30 mg/dL) 12/17/17 10:30 Urine Glucose (UA) Negative mg/dL (NEGATIVE) 12/17/17 10:30 Urine Ketones Negative mg/dL (NEGATIVE) 12/17/17 10:30 Urine Blood Negative (NEGATIVE) 12/17/17 10:30 Urine Nitrate Negative (NEGATIVE) 12/17/17 10:30 Urine Bilirubin Negative (NEGATIVE) 12/17/17 10:30 Urine Urobilinogen 0.2 E.U./dL (<1 E.U./dL) 12/17/17 10:30 Ur Leukocyte Esterase Trace Zheng/uL (NEGATIVE) H 12/17/17 10:30 Urine RBC 0 - 2 /hpf (0-2) 12/17/17 10:30 Urine WBC 1 - 3 /hpf (0-6) 12/17/17 10:30 Ur Epithelial Cells 1 - 3 /hpf (0-5) 12/17/17 10:30 Urine Bacteria Few (NEG) 12/17/17 10:30 Ur Random Creatinine 124 mg/dL 12/18/17 02:26 Ur Random Sodium 19 meq/L 12/18/17 02:26 Ur Random Urea Nitrogn 665 mg/dL 12/18/17 11:00 Blood Type A POSITIVE 12/17/17 17:25 Antibody Screen Negative 12/17/17 17:25 BBK History Checked Patient has bt 12/17/17 17:25 - Hospital Course Hospital Course: Ms. Rainey is a 62-year-old female with a past medical history of Protein C deficiency, asthma, dyslipidemia, hypertension, atrial fibrillation, DVT with IVC filter and on Eliquis, previous CVA, and warfarin induced necrosis admitted for evaluation of right-sided weakness and confusion. Patient was treated with eliquis, lasix, oxycodone, gabapentin, humulin, zofran, and cepacol . Heparin and protonix were also administered for GI prophylaxis. During the course of her hospital stay, the patient underwent EKG, head CT, head/neck CTA, brain MRI , carotid artery ultrasound, abdomen ultrasound, and chest xray. EKG showed sinus tachycardia at [address] changes, head CT showed no acute changes compared to previous head CT, head/neck CTA showed no stenosis or occlusions, brain MRI showed no evidence for acute infarction, old lacunar infarction in the right paramedian mary kay, carotid artery ultrasound showed bilateral 20-39% proximal ICA stenoses, abdominal ultrasound was unremarkable, and chest xray showed no active disease. Neurology (Dr. Cárdenas) was consulted in the management and treatment of this patient. He recommended to continue all current medical, physical, and occupational therapies. He also recommended hydration, blood pressure control, treat electrolyte abnormalities, and keep head of bed to at least be elevated at 30 degrees. Patient instructed to continue home medications as prescribed: eliquis 5mg PO BID, lasix 40mg PO daily , neurontin 400mg PO TID, lopressor 25mg PO BID, zofran 4mg PO Q8, protonix 20mg PO daily, and potassium chloride 20meq PO BID. Patient was educated on the correct way to take medications and was also instructed to follow up with her PMD in 5-7 days, follow up with [facility] CLERK for vaginal bleeding within 1 week of discharge, and follow up with GI within one week of discharge. She was instructed to resume activities as tolerated, stay hydrated, and eat a healthy diet. Patient also instructed to resume home PT and home visiting nurse. Patient further informed to return to the ED if symptoms return.Patient is now medically optimized for discharge. Discharge Exam - Head Exam Head Exam: ATRAUMATIC, NORMAL INSPECTION, NORMOCEPHALIC - Eye Exam Eye Exam: Normal appearance - ENT Exam ENT Exam: Mucous Membranes Moist - Respiratory Exam Respiratory Exam: Clear to PA & Lateral. absent: Rales, Rhonchi, Wheezes - Cardiovascular Exam Cardiovascular Exam: REGULAR RHYTHM, +S1, +S2. absent: Gallop, Rubs, Systolic Murmur - GI/Abdominal Exam GI & Abdominal Exam: Normal Bowel Sounds, Soft. absent: Tenderness - Extremities Exam Additional comments: no calf tenderness or pedal edema - Neurological Exam Neurological exam: Alert, Oriented x3 Additional comments: Neuro motor strength exam: Left Upper Extremity: 5, Right Upper Extremity: 3, Left Lower Extremity: 5, Right Lower Extremity: 3 - Psychiatric Exam Psychiatric exam: Normal Affect, Normal Mood - Skin Skin Exam: Dry, Normal Color, Warm Discharge Plan - Discharge Medications Prescriptions: Benzocaine/Menthol [Cepacol Sore Throat] 1 mercedes MT Q2H PRN 30 Days mercedes PRN Reason: Sore Throat - Follow Up Plan Condition: FAIR Disposition: HOME/ ROUTINE Instructions: Heart Healthy Diet, Transient Ischemic Attack (DC) Additional Instructions: Follow up with [facility] CLERK for vaginal bleeding within 1 week of discharge Follow up with your primary care doctor in a week, or as scheduled Follow up with GI within one week of discharge Your primary care will need to repeat blood work for your liver function Resume home PT and home visiting nurse Please return if the symptoms returns Referrals: Ketan Moe DO [Primary Care Provider] - <Chilo Sherman - Last Filed: 12/22/17 12:40> Provider - Provider Date of Admission: 12/19/17 11:33 Attending physician: Chilo Sherman MD Primary care physician: Ketan Moe DO Hospital Course - Lab Results Lab Results: Most Recent Lab Values WBC 4.7 10^3/ul (4.5-11.0) 12/21/17 06:30 RBC 3.40 10^6/uL (3.5-6.1) L 12/21/17 06:30 Hgb 10.1 g/dL (12.0-16.0) L 12/21/17 06:30 Hct 31.1 % (36.0-48.0) L 12/21/17 06:30 MCV 91.5 fl (80.0-105.0) 12/21/17 06:30 MCH 29.7 pg (25.0-35.0) 12/21/17 06:30 MCHC 32.5 g/dl (31.0-37.0) 12/21/17 06:30 RDW 14.8 % (11.5-14.5) H 12/21/17 06:30 Plt Count 234 10^3/uL (120.0-450.0) 12/21/17 06:30 MPV 8.9 fl (7.0-11.0) 12/21/17 06:30 Gran % 32.7 % (50.0-68.0) L 12/21/17 06:30 Lymph % (Auto) 51.6 % (22.0-35.0) H 12/21/17 06:30 [place] % (Auto) 10.4 % (1.0-6.0) H 12/21/17 06:30 Eos % (Auto) 4.9 % (1.5-5.0) 12/21/17 06:30 Baso % (Auto) 0.4 % (0.0-3.0) 12/21/17 06:30 Gran # 1.53 (1.4-6.5) 12/21/17 06:30 Lymph # (Auto) 2.4 (1.2-3.4) 12/21/17 06:30 [place] # (Auto) 0.5 (0.1-0.6) 12/21/17 06:30 Eos # (Auto) 0.2 (0.0-0.7) 12/21/17 06:30 Baso # (Auto) 0.02 K/mm3 (0.0-2.0) 12/21/17 06:30 PT 11.6 SECONDS (9.4-12.5) 12/17/17 18:20 INR 1.02 (0.93-1.08) 12/17/17 18:20 APTT 25.4 Seconds (25.1-36.5) 12/18/17 06:30 Sodium 139 mmol/L (132-148) 12/21/17 06:30 Potassium 3.8 mmol/L (3.6-5.0) 12/21/17 06:30 Chloride 102 mmol/L (98-107) 12/21/17 06:30 Carbon Dioxide 26 mmol/L (21-33) 12/21/17 06:30 Anion Gap 15 (10-20) 12/21/17 06:30 BUN 15 mg/dL (7-21) 12/21/17 06:30 Creatinine 0.8 mg/dl (0.7-1.2) 12/21/17 06:30 Est GFR ( Amer) > 60 12/21/17 06:30 Est GFR (Non-Af Amer) > 60 12/21/17 06:30 POC Glucose (mg/dL) 82 mg/dL (65-110) 12/21/17 11:39 Random Glucose 81 mg/dL (70-110) 12/21/17 06:30 Hemoglobin A1c 4.9 % (4.2-6.5) 12/17/17 17:25 Calcium 8.8 mg/dL (8.4-10.5) 12/21/17 06:30 Total Bilirubin 0.2 mg/dL (0.2-1.3) 12/21/17 06:30 AST 73 U/L (14-36) H D 12/21/17 06:30 ALT 68 U/L (7-56) H 12/21/17 06:30 Alkaline Phosphatase 74 U/L (38-126) 12/21/17 06:30 Total Creatine Kinase 1576 U/L (35-230) H 12/18/17 06:30 CK-MB (CK-2) 10.5 ng/mL (0.0-3.6) H 12/18/17 06:30 CK-MB (CK-2) % 0.7 % (2.5-3.0) L 12/18/17 06:30 Troponin I < 0.01 ng/mL 12/17/17 17:25 Total Protein 6.8 g/dL (5.8-8.3) 12/21/17 06:30 Albumin 3.6 g/dL (3.0-4.8) 12/21/17 06:30 Globulin 3.2 gm/dL 12/21/17 06:30 Albumin/Globulin Ratio 1.1 (1.1-1.8) 12/21/17 06:30 Triglycerides 93 mg/dL (35-160) 12/18/17 06:30 Cholesterol 149 mg/dL (130-200) 12/18/17 06:30 LDL Cholesterol Direct 49 mg/dL (0-129) 12/18/17 06:30 HDL Cholesterol 63 mg/dL (29-60) H 12/18/17 06:30 Urine Color Yellow (YELLOW) 12/17/17 10:30 Urine Appearance Clear (CLEAR) 12/17/17 10:30 Urine pH 6.0 (4.7-8.0) 12/17/17 10:30 Ur Specific [place] <= 1.005 (1.005-1.035) 12/17/17 10:30 Urine Protein Negative mg/dL (<30 mg/dL) 12/17/17 10:30 Urine Glucose (UA) Negative mg/dL (NEGATIVE) 12/17/17 10:30 Urine Ketones Negative mg/dL (NEGATIVE) 12/17/17 10:30 Urine Blood Negative (NEGATIVE) 12/17/17 10:30 Urine Nitrate Negative (NEGATIVE) 12/17/17 10:30 Urine Bilirubin Negative (NEGATIVE) 12/17/17 10:30 Urine Urobilinogen 0.2 E.U./dL (<1 E.U./dL) 12/17/17 10:30 Ur Leukocyte Esterase Trace Zheng/uL (NEGATIVE) H 12/17/17 10:30 Urine RBC 0 - 2 /hpf (0-2) 12/17/17 10:30 Urine WBC 1 - 3 /hpf (0-6) 12/17/17 10:30 Ur Epithelial Cells 1 - 3 /hpf (0-5) 12/17/17 10:30 Urine Bacteria Few (NEG) 12/17/17 10:30 Ur Random Creatinine 124 mg/dL 12/18/17 02:26 Ur Random Sodium 19 meq/L 12/18/17 02:26 Ur Random Urea Nitrogn 665 mg/dL 12/18/17 11:00 Blood Type A POSITIVE 12/17/17 17:25 Antibody Screen Negative 12/17/17 17:25 BBK History Checked Patient has bt 12/17/17 17:25 Attending/Attestation - Attestation I have personally seen and examined this patient.: Yes I have fully participated in the care of the patient.: Yes I have reviewed all pertinent clinical information, including history, physical exam and plan: Yes Notes (Text): 12/22/17 12:37 Attending note ; Patient seen and examined with resident . Patient is a 62-year-old female with a past medical history of Protein C deficiency, asthma, dyslipidemia, hypertension, atrial fibrillation, DVT with IVC filter and on Eliquis, previous CVA, and warfarin induced necrosis admitted for evaluation of right-sided weakness and confusion. CT and MRI did not show any acute infarct. Physical therapy evaluation appreciated. Patient refused subacute rehabilitation. Prescription for outpatient physical therapy given. Anemia; chronic. Needs outpatient GI follow up. History of vaginal spotting; needs outpatient TI[employer]ER follow-up. Currently no active bleeding. Elevated LFTs; baseline. Hepatitis profile negative. Abdominal ultrasound is normal. Needs outpatient GI follow up. Avoid Tylenol. History of A. fib/protein C deficiency and DVT. Continue eliquis. Patient will follow up with PMD Dr. Moe. The diagnosis and follow-up plan discussed with patient in detail.
[2017-12-21] MEDS ORDERED: Insulin Regular 1 UNITS/0.01 ML ML SC ONE (14:53)
== END 2017-12-21 13:45 | disposition home or self-care (01) | DRG 57 ==
LOC: ED 17:04 → ERH 20:38 → 2RSO 22:50 → OBSVTOIN 12-19 11:33
PROVIDERS: ADMIT Internal Medicine; ATTEND Internal Medicine
DX: I69.351 Hemiplegia and hemiparesis following cerebral infarction affecting right dominant side (principal); N17.9 Acute kidney failure, unspecified; D68.59 Other primary thrombophilia; N39.0 Urinary tract infection, site not specified; I10 Essential (primary) hypertension; G89.29 Other chronic pain; I48.0 Paroxysmal atrial fibrillation; M54.9 Dorsalgia, unspecified; E78.5 Hyperlipidemia, unspecified; D64.9 Anemia, unspecified; E86.0 Dehydration; J45.909 Unspecified asthma, uncomplicated; K21.9 Gastro-esophageal reflux disease without esophagitis; I65.23 Occlusion and stenosis of bilateral carotid arteries; N93.9 Abnormal uterine and vaginal bleeding, unspecified; R94.5 Abnormal results of liver function studies; B95.61 Methicillin susceptible Staphylococcus aureus infection as the cause of diseases classified elsewhere; Z86.718 Personal history of other venous thrombosis and embolism; Z79.01 Long term (current) use of anticoagulants; Z88.0 Allergy status to penicillin; Z82.3 Family history of stroke; Z89.022 Acquired absence of left finger(s); Z89.021 Acquired absence of right finger(s); Z87.01 Personal history of pneumonia (recurrent); Z98.84 Bariatric surgery status; Z80.3 Family history of malignant neoplasm of breast

== ENCOUNTER 2018-05-06 11:45 | Inpatient (IN) | payer MEDICARE, OTHER ==
[2018-05-06 12:06] VITALS: BMI 35.4
--- NOTE | 2018-05-06 12:08 | EDPD ---
HPI Stroke - General Chief Complaint: Weakness/Neurological Deficit Historian: Patient - History of Present Illness Narrative History of Present Illness (Free Text): 05/06/18 12:07 62 y/o F with a PMHx of Protein C deficiency, asthma, dyslipidemia, hypert ension, atrial fibrillation(on Elquis), DVT with IVC filter, warfarin induced necrosis, presents to the Emergency department via EMS, for evaluation of slurred speech and right sided weakness ongoing for 45 minutes prior to arrival. Patient reports history of multiple TIAs and CVA in the past, prompting her to present to the ED for medical evaluation. She reports chronic right knee pain worsened with ambulation with associated swelling. Patient denies any vision changes or any other neurological symptoms. Patient denies any fevers, chills, headache, dizziness, chest pain, shortness of breath, cough, abdominal pain, nausea, vomiting, diarrhea, back pain, neck pain, or any other complaints at this time. PMD: Dr. Moe Onset:: Gradual Timing: Currently Symptomatic Context: Home Exacerbated by: Nothing Relieved by: Nothing - Location Location: Speech - Pain Assessment/Levels Maximum Severity: None rTPA Inclusion/Exclusion - Refusal of Treatment Patient Refused Treatment: No - Inclusion Criteria for Altepase Patient is 18 years or Older: Yes The Clinical Diagnosis of Ischemic Stroke That is Causing a Potentially Disabling Neurological Deficit: Yes Time of Onset is Well Established to be Less Than 270 Minute Before Treatment Would Begin: Yes Risk/Benefit Discussed With Patient/Family Member Present: Yes - Exclusion Criteria for Altepase Uncontrolled Hypertension at Time of Treatment (Systolic BP above 185 or Diastolic BP above 110 mmHg): No - Warning to TPA With Conditions Following Conditions Weighed Against Anticipated Benefit: Yes Condition: Increase Risk of Bleed Due to Comorbid Condition Additional Condition (For 3-4.5 Hour Window): Any anticoagulant use prior to admission (Even if INR less than 1.7) Past Medical History - Provider Review Nursing Documentation Reviewed: Yes - Travel History Have you recently traveled outside [place] w/in the past 3 mons?: No - Infectious Disease Hx of Infectious Diseases: None - Tetanus Immunization Tetanus Immunization: Unknown - Cardiac Hx Atrial Fibrillation: Yes Hx Cardiac Arrhythmia: Yes Hx Hypertension: Yes - Pulmonary Hx Respiratory Disorders: Yes Hx Asthma: Yes Hx Bronchitis: No Hx Chronic Obstructive Pulmonary Disease (COPD): No Hx Emphysema: No Hx Pneumonia: Yes Hx Respiratory Aspiration: No Hx Respiratory Tract Infection: No Hx Sleep Apnea: No Hx Tuberculosis: No - Neurological HX Cerebrovascular Accident: Yes - HEENT Hx HEENT Disorder: Yes Hx Blind: Yes Hx Cataracts: No Hx Deafness: No Hx Difficulty Chewing: No Hx Epistaxis: No Hx Glaucoma: No Hx Macular Degeneration: No Other/Comment: Tonsillectomy - Renal Hx Renal Failure: Yes - Endocrine/Metabolic Hx Endocrine Disorders: No Hx Adrenal Cancer: No Hx Diabetes Insipidus: No Hx Diabetes Mellitus Type 1: No Hx Diabetes Mellitus Type 2: No Hx Hyperthyroidism: No Hx Hypothyroidism: No Hx Systemic Lupus Erythematosus: No - Hematological/Oncological Hx Blood Disorders: Yes Hx Blood Transfusions: Yes Hx Blood Transfusion Reaction: No - Integumentary Hx Dermatological Disorder: No Hx Basal Cell Carcinoma: No Hx Eczema: No Hx Melanoma: No Hx Psoriasis: No Hx Squamous Cell Carcinoma: No - Musculoskeletal/Rheumatological Hx Arthritis: Yes - Gastrointestinal Hx Gastrointestinal Disorders: Yes Hx Colostomy: No Hx Crohn's Disease: No Hx Diverticulitis: No Hx Gall Bladder Disease: Yes Hx Gastroesophageal Reflux: Yes Hx Ileostomy: No Hx Liver Failure: No Hx Pancreatitis: No HX Swallowing Problems: No Other/Comment: Gastric Bypass Surgery. Appetite Changes. Weight Loss. - Genitourinary/Gynecological Hx Genitourinary Disorders: No Hx Hematuria: No Hx Incontinence: No Hx Sexually Transmitted Diseases: No Hx Urinary Tract Infection: Yes - Psychiatric Hx Psychophysiologic Disorder: No Hx Anxiety: No Hx Bipolar Disorder: No Hx Depression: No Hx Emotional Abuse: No Hx Hallucinations: No Hx Panic Disorder: No Hx Post Traumatic Stress Disorder: No Hx Psychosis: No Hx Physical Abuse: No Hx Schizophrenia: No Hx Sexual Abuse: No Hx Substance Use: No - Past Surgical History Past Surgical History: Non-Contributing - Surgical History Hx Amputation: Yes Hx Mastectomy: No - Anesthesia Hx Anesthesia: Yes Hx Anesthesia Reactions: No Hx Malignant Hyperthermia: No - Suicidal Assessment Feels Threatened In Home Enviroment: No Family/Social History - Family/Social History Family History: Non-Contributory - DrKami Review Nursing documentation reviewed.: Yes Allergies/Home Meds Allergies/Adverse Reactions: Allergies Penicillins Allergy (Verified 12/17/17 17:56) ANGIOEDEMA/SHORTNESS OF BREATH ANGIOEDEMA SHORTNESS OF BREATH levofloxacin Adverse Reaction (Verified 12/17/17 17:56) VOMITING Home Medications: Home Meds Medication Instructions Recorded Confirmed Apixaban [Eliquis] 5 mg PO BID 03/26/17 05/06/18 Gabapentin [Neurontin] 600 mg PO TID 03/26/17 05/06/18 Furosemide [Lasix] 40 mg PO DAILY 10/22/17 05/06/18 Pantoprazole Sodium [Protonix] 20 mg PO DAILY 10/22/17 05/06/18 Potassium Chloride [K-Dur 20 mEq 20 meq PO BID 10/22/17 05/06/18 ER Tab] Review of Systems - Physician Review All systems were reviewed & negative as marked: Yes - Review of Systems Constitutional: absent: Fevers Eyes: absent: Vision Changes Respiratory: absent: SOB, Cough Cardiovascular: absent: Chest Pain Gastrointestinal: absent: Abdominal Pain, Diarrhea, Nausea, Vomiting Genitourinary Female: absent: Dysuria, Urine Output Changes Musculoskeletal: absent: Back Pain, Neck Pain Skin: absent: Rash Neurological: Focal Weakness (right upper extremity weakness), Speech Changes. absent: Headache, Dizziness, Facial Droop ED Stroke Physical Exam Vital Signs Reviewed: Yes Temperature: Afebrile Blood Pressure: Normal Pulse: Regular Respiratory Rate: Normal Appearance: Positive for: Well-Appearing, Non-Toxic, Comfortable Pain Distress: None Mental Status: Positive for: Alert and Oriented X 3 - Systems Exam Head: Present: Atraumatic, Normocephalic Pupils: Present: PERRL Extroacular Muscles: Present: EOMI Conjunctiva: Present: Normal Mouth: Present: Moist Mucous Membranes Neck: Present: Normal Range of Motion Respiratory/Chest: Present: Clear to Auscultation, Good Air Exchange. No: Respiratory Distress, Accessory Muscle Use Cardiovascular: Present: Regular Rate and Rhythm, Normal S1, S2. No: Murmurs Abdomen: Present: Normal Bowel Sounds. No: Tenderness, Distention, Peritoneal Signs Genitourinary/Pelvic Exam: Present: NI. No: C, E Back: Present: GCS, CN, SP Upper Extremity: Present: Other (3/5 in strength right upper extremity). No: Cyanosis, Edema Lower Extremity: Present: CALF TENDERNESS (tenderness to palpation of R knee ), Matthew's Sign (positive on R lower extremity), Swelling (noted to R knee), Other (3/5 strength right lower extremity). No: Edema Neurologic: Present: Normal Sensory Function, Other (mild aphasia; no facial asymmetry) Skin: Present: Warm, Dry, Normal Color. No: Rashes Lymphatic: Present: OX3, NI, NC Psychiatric: Present: Alert, Oriented x 3, Normal Insight, Normal Concentration Medical Decision Making ED Course and Treatment: 05/06/18 12:07 Impression: 62 year old female presents to the ED for evaluation of slurred speech and right sided weakness. NIHSS: 3 Differential Diagnosis included but are not limited to: -- CVA -- TIA Plan: -- Labs -- EKG -- CTH --CTA --Neurology consult -- Chest X-ray -- IV Fluids -- Reassess and disposition Prior Visits: Notes and results from previous visits were reviewed. Progress Notes: 05/06/18 12:07 CODE STROKE ACTIVATED. Patient taken immediately to CT scan. 05/06/18 12:15 Dr. Fox(neurology)at bedside evaluated patient and believes patient is NOT a candidate for tPA due to her history of being on Eliquis. Dr. Fox requests CT, CTA and MRI to be performed along with admission to the hospital. 05/06/18 14:38 CTH negative for intracranial bleeding. CTA negative for acute occlusions. Discussed case with Dr. Benz(hospitalist) who accepts patient onto his service. - Lab Interpretations Narrative Lab Interpretation (Text): 05/06/18 12:07 CODE STROKE ACTIVATED. - RAD Interpretation Narrative RAD Interpretations (Text): 05/06/18 13:32 CTA of head/neck reviewed by radiologist, shows: FINDINGS: INTERNAL CEREBRAL ARTERIES: Unremarkable. The skull base, petrous, cavernous and supraclinoid segments are bilaterally widely patent. ANTERIOR CEREBRAL ARTERIES: Unremarkable. A1 and A2 segments are widely patent. Smaller distal branches unremarkable, as visualized. MIDDLE CEREBRAL ARTERIES: Unremarkable. M1 and M2 segments are widely patent. Perisylvian branches grossly symmetric. POSTERIOR CIRCULATION: Basilar Artery: Unremarkable. Distal Vertebral Arteries: Stable left dominant vertebrobasilar circulation. Posterior Cerebral Arteries: Unremarkable. Posterior Inferior Cerebellar Arteries: Unremarkable. NECK CTA: Common Carotid arteries: The bilateral common carotid appear widely patent from their origins to their bifurcations with no significant stenosis appreciated. No evidence to suggest common carotid artery dissection. Internal Carotid arteries: No significant stenosis is appreciated throughout the cervical internal carotid artery segments bilaterally and there is no evidence of dissection either. External Carotid arteries: Appear unremarkable bilaterally. Vertebral arteries: The bilateral vertebral arteries appear normal in caliber from their origins to their distal cervical segments. No significant stenosis or definite pattern of dissection. ANEURYSM/ VASCULAR MALFORMATIONS: None. OTHER FINDINGS: Incidental empty sella noted as well as partial ossification of the falx cerebri. IMPRESSION: Stable CT angiogram of the brain and neck as discussed above with no definitive occlusion or significant stenosis appreciated once again. 05/06/18 13:35 CT of head reviewed by radiologist, shows: FINDINGS: HEMORRHAGE: No intracranial hemorrhage. BRAIN: No mass effect or edema. No atrophy or chronic microvascular ischemic changes. VENTRICLES: Unremarkable. No hydrocephalus. CALVARIUM: Unremarkable. PARANASAL SINUSES: Unremarkable as visualized. No significant inflammatory changes. MASTOID AIR CELLS: Unremarkable as visualized. No inflammatory changes. OTHER FINDINGS: None. IMPRESSION: No acute findings 05/06/18 13:38 Chest X-ray reviewed by radiologist, shows: FINDINGS: HEMORRHAGE: No intracranial hemorrhage. BRAIN: No mass effect or edema. No atrophy or chronic microvascular ischemic changes. VENTRICLES: Unremarkable. No hydrocephalus. CALVARIUM: Unremarkable. PARANASAL SINUSES: Unremarkable as visualized. No significant inflammatory changes. MASTOID AIR CELLS: Unremarkable as visualized. No inflammatory changes. OTHER FINDINGS: None. 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 All medical record entries made by the Leonaibe were at my direction and personally dictated by me. I have reviewed the chart and agree that the record accurately reflects my personal performance of the history, physical exam, medical decision making, and the department course for this patient. I have also personally directed, reviewed, and agree with the discharge instructions and disposition. NIHSS Scale ([place]) Time Performed: 12:07 - How Severe is the Stoke Baseline Level of Consciousness: 0=Alert LOC to Questions: 0=Both comments correct LOC to commands: 0=Obeys both correctly Best Gaze: 0=Normal Visual: 0=No visual loss Facial: 0=Normal Motor Arm - Left: 0=No drift Motor Arm - Right: 1=Drift noted before 10 sec Motor Leg - Left: 0=No drift Motor Leg - Right: 0=No drift Limb Ataxia: 0=Absent Sensory: 0=Normal Best Language: 1=Mild to moderate aphasia Dysarthia: 1=Mild to moderate slurring Extinction & Inattention (Neglect): 0=Normal, no object Score: 3 Risk Level: Minor Stroke Risk Disposition/Present on Arrival - Present on Arrival Any Indicators Present on Arrival: No History of DVT/PE: No History of Uncontrolled Diabetes: No Urinary Catheter: No History of Decub. Ulcer: No History Surgical Site Infection Following: None - Disposition Have Diagnosis and Disposition been Completed?: Yes Diagnosis: TIA (transient ischemic attack), Right leg pain Disposition: HOSPITALIZED Disposition Time: 14:30 Patient Plan: Admission Condition: GUARDED
[2018-05-06] MEDS ORDERED: Iohexol 350 MG/100 ML VIAL ONE (12:30)
--- NOTE | 2018-05-06 12:33 | CT ---
Date of service: 05/06/2018 PROCEDURE: CT HEAD WITHOUT CONTRAST. HISTORY: Code Stroke COMPARISON: None available. TECHNIQUE: Axial computed tomography images were obtained through the head/brain without intravenous contrast. Radiation dose: Total exam DLP = 849.13 mGy-cm. This CT exam was performed using one or more of the following dose reduction techniques: Automated exposure control, adjustment of the mA and/or kV according to patient size, and/or use of iterative reconstruction technique. FINDINGS: HEMORRHAGE: No intracranial hemorrhage. BRAIN: No mass effect or edema. No atrophy or chronic microvascular ischemic changes. VENTRICLES: Unremarkable. No hydrocephalus. CALVARIUM: Unremarkable. PARANASAL SINUSES: Unremarkable as visualized. No significant inflammatory changes. MASTOID AIR CELLS: Unremarkable as visualized. No inflammatory changes. OTHER FINDINGS: None. IMPRESSION: No acute findings
--- NOTE | 2018-05-06 13:14 | RAD ---
Date of service: 05/06/2018 HISTORY: Code Stroke COMPARISON: 12/17/2017 FINDINGS: LUNGS: No active pulmonary disease. PLEURA: No significant pleural effusion identified, no pneumothorax apparent. CARDIOVASCULAR: No aortic atherosclerotic calcification present. Normal cardiac size. No pulmonary vascular congestion. OSSEOUS STRUCTURES: No significant abnormalities. VISUALIZED UPPER ABDOMEN: Normal. OTHER FINDINGS: None. IMPRESSION: No active disease.
[2018-05-06 13:26] LABS: BASO # 0.01 K/mm3 (0.0-2.0); BASO % 0.2 % (0.0-3.0); EOS # 0.1 (0.0-0.7); EOS % 2.8 % (1.5-5.0); GRAN # 2.86 (1.4-6.5); GRAN % 56.6 % (50.0-68.0); HEMOGLOBIN 10.5 g/dL (12.0-16.0); LYMPH # 1.4 (1.2-3.4); LYMPH % 27.3 % (22.0-35.0); MEAN CELL VOLUME 94.8 fl (80.0-105.0); MEAN CORPUSCULAR HEMOGLOBIN 30.2 pg (25.0-35.0); MEAN CORPUSCULAR HGB CONC 31.8 g/dl (31.0-37.0); MONO # 0.7 (0.1-0.6); MONO % 13.1 % (1.0-6.0); RBC 3.48 10^6/uL (3.5-6.1); RED CELL DISTRIBUTION WIDTH 14.7 % (11.5-14.5); WHITE BLOOD COUNT 5.1 10^3/uL (4.5-11.0)
--- NOTE | 2018-05-06 13:28 | CT ---
Date of service: 05/06/2018 PROCEDURE: CT Angiography of the Brain and Neck. HISTORY: left sided weakness COMPARISON: Head and neck CT angiogram 12/17/2017. TECHNIQUE: CT angiography of the head and neck was performed following intravenous contrast administration. Coronal and sagittal maximum intensity projection reformatted images were generated. Contrast Dose: Omnipaque 350, 100 cc Radiation dose: Total exam DLP = 587.57 mGy-cm. This CT exam was performed using one or more of the following dose reduction techniques: Automated exposure control, adjustment of the mA and/or kV according to patient size, and/or use of iterative reconstruction technique. FINDINGS: INTERNAL CEREBRAL ARTERIES: Unremarkable. The skull base, petrous, cavernous and supraclinoid segments are bilaterally widely patent. ANTERIOR CEREBRAL ARTERIES: Unremarkable. A1 and A2 segments are widely patent. Smaller distal branches unremarkable, as visualized. MIDDLE CEREBRAL ARTERIES: Unremarkable. M1 and M2 segments are widely patent. Perisylvian branches grossly symmetric. POSTERIOR CIRCULATION: Basilar Artery: Unremarkable. Distal Vertebral Arteries: Stable left dominant vertebrobasilar circulation. Posterior Cerebral Arteries: Unremarkable. Posterior Inferior Cerebellar Arteries: Unremarkable. NECK CTA: Common Carotid arteries: The bilateral common carotid appear widely patent from their origins to their bifurcations with no significant stenosis appreciated. No evidence to suggest common carotid artery dissection. Internal Carotid arteries: No significant stenosis is appreciated throughout the cervical internal carotid artery segments bilaterally and there is no evidence of dissection either. External Carotid arteries: Appear unremarkable bilaterally. Vertebral arteries: The bilateral vertebral arteries appear normal in caliber from their origins to their distal cervical segments. No significant stenosis or definite pattern of dissection. ANEURYSM/ VASCULAR MALFORMATIONS: None. OTHER FINDINGS: Incidental empty sella noted as well as partial ossification of the falx cerebri. IMPRESSION: Stable CT angiogram of the brain and neck as discussed above with no definitive occlusion or significant stenosis appreciated once again.
[2018-05-06 13:35] LABS: ALB/GLOB RATIO 1.1 (1.1-1.8); ALBUMIN 3.5 g/dL (3.0-4.8); ALT/SGPT 92 U/L (7-56); AST/SGOT 200 U/L (14-36); BLOOD UREA NITROGEN 20 mg/dL (7-21); CALCIUM 8.7 mg/dL (8.4-10.5); GFR NON-AFRICAN AMERICAN 50
[2018-05-06 13:36] LABS: INR 1.54; PROTHROMBIN TIME 17.9 SECONDS (9.4-12.5)
[2018-05-06 13:37] LABS: PARTIAL THROMBOPLASTIN TIME 33.2 Seconds (25.1-36.5)
[2018-05-06 13:47] LABS: B-TYPE NATRIURETIC PEPTIDE 160 pg/mL (0-450); TROPONIN I < 0.01 ng/mL
[2018-05-06] MEDS: Sodium Chloride 0.9% 1,000 ML IV SCH ×2 (13:56→22:43)
--- NOTE | 2018-05-06 16:11 | CP.PCM.HP ---
<Jeremiah Locke - Last Filed: 05/06/18 16:28> History of Present Illness - History of Present Illness History of Present Illness: Jeremiah Locke, PGY-1, Internal Medicine History and Physical for Dr. Benz 62 year old female with past medical history of protein C deficiency, asthma, dyslipidemia, hypertension, atrial fibrillation, DVT with IVC filter and eliquis, previous CVA, warfarin induced necrosis, and fibroids presents with trouble speaking and confusion. Patient woke up this morning with a sharp pain that went down the right leg and was on the phone with a friends who noticed t hat she was having trouble speaking and seemed confused. Patient took a cab to the hospital. Patient complains of right sided weakness with right leg weakness more than right arm weakness. She additionally reports decreased sensation of both upper and lower extremities. She denies facial droop, dysarthria, or dysphagia. She reports lower abdominal pain and masses from heparin injections in the past. She reports bilateral lower extremity edema with right more than left. She denies chest pain, heart palpitations, shortness of breath, nausea, vomiting, dysuria, and hematuria. 12-point ROS was negative except for what was mentioned above. 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 Moe Present on Admission - Present on Admission Any Indicators Present on Admission: No Review of Systems - Constitutional Constitutional: Headache. absent: Anorexia, Chills, Fever - EENT Eyes: absent: Blurred Vision - Cardiovascular Cardiovascular: Leg Edema. absent: Chest Pain, Orthopnea - Respiratory Respiratory: absent: Cough, Dyspnea - Gastrointestinal Gastrointestinal: Abdominal Pain (lower) - Genitourinary Genitourinary: absent: Dysuria, Hematuria - Integumentary Additional comments: darked skin wound near sites of heparin injection - Neurological Neurological: Abnormal Speech, Confusion. absent: Abnormal Hearing, Abnormal Movements Additional comments: right sided weakness and decrease in sensation Past Patient History - Infectious Disease Hx of Infectious Diseases: None - Tetanus Immunizations Tetanus Immunization: Unknown - Past Medical History & Family History Past Medical History?: Yes - Past Social History Smoking Status: Never Smoked - CARDIAC Hx Atrial Fibrillation: Yes Hx Cardia Arrhythmia: Yes Hx Hypertension: Yes - PULMONARY Hx Respiratory Disorders: Yes Hx Asthma: Yes Hx Bronchitis: No Hx Chronic Obstructive Pulmonary Disease (COPD): No Hx Emphysema: No Hx Pneumonia: Yes Hx Respiratory Aspiration: No Hx Respiratory Tract Infection: No Hx Sleep Apnea: No Hx Tuberculosis: No - NEUROLOGICAL HX Cerebrovascular Accident: Yes - HEENT Hx HEENT Problems: Yes Hx Blind: Yes Hx Cataracts: No Hx Deafness: No Hx Difficulty Chewing: No Hx Epistaxis: No Hx Glaucoma: No Hx Macular Degeneration: No Other/Comment: Tonsillectomy - RENAL Hx Renal Failure: Yes - ENDOCRINE/METABOLIC Hx Endocrine Disorders: No Hx Adrenal Cancer: No Hx Diabetes Insipidus: No Hx Diabetes Mellitus Type 1: No Hx Diabetes Mellitus Type 2: No Hx Hyperthyroidism: No Hx Hypothyroidism: No Hx Systemic Lupus Erythematosus: No - HEMATOLOGICAL/ONCOLOGICAL Hx Blood Disorders: Yes Hx Blood Transfusions: Yes Hx Blood Transfusion Reaction: No - INTEGUMENTARY Hx Dermatological Problems: No Hx Basil Cell: No Hx Eczema: No Hx Melanoma: No Hx Psoriasis: No Hx Squamous Cell: No - MUSCULOSKELETAL/RHEUMATOLOGICAL Hx Arthritis: Yes - GASTROINTESTINAL Hx Gastrointestinal Disorders: Yes Hx Colostomy: No Hx Crohn's Disease: No Hx Diverticulitis: No Hx Gall Bladder Disease: Yes Hx Gastroesophageal Reflux: Yes Hx Ileostomy: No Hx Liver Failure: No Hx Pancreatitis: No HX Swallowing Problems: No Other/Comment: Gastric Bypass Surgery. Appetite Changes. Weight Loss. - GENITOURINARY/GYNECOLOGICAL Hx Genitourinary Disorders: No Hx Hematuria: No Hx Incontinence: No Hx Sexually Transmitted Disorders: No Hx Urinary Tract Infection: Yes - PSYCHIATRIC Hx Psychophysiologic Disorder: No Hx Anxiety: No Hx Bipolar Disorder: No Hx Depression: No Hx Emotional Abuse: No Hx Hallucinations: No Hx Panic Symptoms: No Hx Post Traumatic Stress Disorder: No Hx Psychosis: No Hx Physical Abuse: No Hx Schizophrenia: No Hx Sexual Abuse: No Hx Substance Use: No - SURGICAL HISTORY Hx Amputation: Yes Hx Mastectomy: No - ANESTHESIA Hx Anesthesia: Yes Hx Anesthesia Reactions: No Hx Malignant Hyperthermia: No Meds Allergies/Adverse Reactions: Allergies Allergy/AdvReac Type Severity Reaction Status Date / Time Penicillins Allergy ANGIOEDEMA/SHORTNESS Verified 12/17/17 17:56 OF BREATH levofloxacin AdvReac VOMITING Verified 12/17/17 17:56 Physical Exam - Constitutional Appears: Well, Non-toxic, No Acute Distress - Head Exam Head Exam: ATRAUMATIC, NORMAL INSPECTION, NORMOCEPHALIC - Eye Exam Eye Exam: EOMI Pupil Exam: PERRL - ENT Exam ENT Exam: Mucous Membranes Moist - Respiratory Exam Respiratory Exam: Clear to Auscultation Bilateral, NORMAL BREATHING PATTERN - Cardiovascular Exam Cardiovascular Exam: REGULAR RHYTHM, RRR - GI/Abdominal Exam GI & Abdominal Exam: Normal Bowel Sounds, Soft. absent: Tenderness Additional comments: darkened areas at sites of prior heparin injection - Extremities Exam Extremities exam: Positive for: full ROM - Neurological Exam Neurological exam: Alert, CN II-XII Intact, Oriented x3 - Skin Skin Exam: Dry, Intact, Normal Color Additional comments: darkened areas at sites of prior heparin injection on lower abdomen Results - Vital Signs Recent Vital Signs: Last Vital Signs Temp 99 F 05/06/18 11:46 Pulse 66 05/06/18 13:46 Resp 18 05/06/18 13:46 BP 126/83 05/06/18 13:46 Pulse Ox 97 05/06/18 13:46 - Labs Result Diagrams: 05/06/18 12:50 05/06/18 12:50 Labs: Laboratory Results - last 24 hr 05/06/18 05/06/18 05/06/18 12:10 12:50 12:50 WBC 5.1 RBC 3.48 L Hgb 10.5 L Hct 33.0 L MCV 94.8 D MCH 30.2 MCHC 31.8 RDW 14.7 H Plt Count 225 MPV 9.0 Gran % 56.6 Lymph % (Auto) 27.3 [place] % (Auto) 13.1 H Eos % (Auto) 2.8 Baso % (Auto) 0.2 Gran # 2.86 Lymph # (Auto) 1.4 [place] # (Auto) 0.7 H Eos # (Auto) 0.1 Baso # (Auto) 0.01 PT 17.9 H INR 1.54 APTT 33.2 Sodium Potassium Chloride Carbon Dioxide Anion Gap BUN Creatinine Est GFR ( Amer) Est GFR (Non-Af Amer) POC Glucose (mg/dL) 82 Random Glucose Calcium Total Bilirubin AST ALT Alkaline Phosphatase Troponin I NT-Pro-B Natriuret Pep Total Protein Albumin Globulin Albumin/Globulin Ratio Blood Type Antibody Screen BBK History Checked 05/06/18 05/06/18 12:50 12:50 WBC RBC Hgb Hct MCV MCH MCHC RDW Plt Count MPV Gran % Lymph % (Auto) [place] % (Auto) Eos % (Auto) Baso % (Auto) Gran # Lymph # (Auto) [place] # (Auto) Eos # (Auto) Baso # (Auto) PT INR APTT Sodium 134 Potassium 4.5 Chloride 108 H Carbon Dioxide 20 L Anion Gap 11 BUN 20 Creatinine 1.1 Est GFR ( Amer) > 60 Est GFR (Non-Af Amer) 50 POC Glucose (mg/dL) Random Glucose 83 Calcium 8.7 Total Bilirubin 0.8 AST 200 H D ALT 92 H Alkaline Phosphatase 163 H D Troponin I < 0.01 NT-Pro-B Natriuret Pep 160 Total Protein 6.8 Albumin 3.5 Globulin 3.3 Albumin/Globulin Ratio 1.1 Blood Type A POSITIVE Antibody Screen Negative BBK History Checked Patient has bt Assessment & Plan - Assessment and Plan (Free Text) Assessment: 62 year old female with past medical history of protein C deficiency, asthma, dyslipidemia, hypertension, atrial fibrillation, DVT with IVC filter and eliquis, previous CVA, warfarin induced necrosis, and fibroids presents with trouble speaking and confusion. Plan: Right sided weakness 2/2 to TIA vs. ischemic stroke -CT Head without contrast: no acute findings -Head and Neck CTA: no definite occlusion or significant stenosis appreciated once again. 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 -Prior Brain MRI on prior admission this year: old lacunar infarct in right paramedian mary kay -Prior Carotid and vertebral duplex on prior admission this year: bilateral 20- 39% proximal ICA stenosis, anterograde flow in both vertebral arteries -Prior Duplex ultrasound of bilateral lower extremities on prior admission this year. -MRI Head without contrast ordered to evaluate for ischemia -Aspiriation precautions, fall precautions, swallow evaluation, speech evaluation -Neuro check Q4 -Physical therapy and occupational therapy evaluation ordered. -Echocardiogram with bubble study, lipid panel to evaluate for possible TIA vs. ischemic stroke -Aspirin 325 mg, hold lipitor due to patient's myopathy reaction. Continue with eliquis. Continue with gabapentin for neuropathy. -Dr. Fox, Neurology, consulted for recommendations Bilateral lower extremity edema 2/2 to possible DVT -Patient has history of Protein C deficiency, prior DVT with IVC filter and on eliquis, and prior CVA -Matthew's sign positive on right lower extremity. -Doppler ultrasound of bilateral lower extremities to evaluate for possible DVT Elevated Liver Function Test -Abdominal Ultrasound ordered to evaluate for possible hepatitis vs. cirrhosis -INR: 1.54 -AST:ALT ratio>2:1 and each less than 300, so possible alcohol etiology Hypertension -BP: 126/83. -Continue to monitor. Hold home metoprolol at this time. Atrial Fibrillation -Awaiting EKG -Echocardiogram ordered. -HR: 66. Hold home metoprolol at this time -Continue home eliquis Dyslipidemia -Lipid panel ordered -Lipitor held due to myopathy reaction DVT prophylaxis: eliquis 5 mg BID GI prophylaxis: protonix 40 mg daily Patient plan discussed with Dr. Benz. - Date & Time Date: 05/06/18 Time: 16:28 <Nik Benz - Last Filed: 05/07/18 06:41> Results - Vital Signs Recent Vital Signs: Last Vital Signs Temp 99 F 05/06/18 11:46 Pulse 78 05/07/18 03:10 Resp 18 05/06/18 22:14 BP 126/83 05/06/18 13:46 Pulse Ox 97 05/06/18 13:46 - Labs Result Diagrams: 05/06/18 12:50 05/06/18 12:50 Labs: Laboratory Results - last 24 hr 05/06/18 05/06/18 05/06/18 12:10 12:50 12:50 WBC 5.1 RBC 3.48 L Hgb 10.5 L Hct 33.0 L MCV 94.8 D MCH 30.2 MCHC 31.8 RDW 14.7 H Plt Count 225 MPV 9.0 Gran % 56.6 Lymph % (Auto) 27.3 [place] % (Auto) 13.1 H Eos % (Auto) 2.8 Baso % (Auto) 0.2 Gran # 2.86 Lymph # (Auto) 1.4 [place] # (Auto) 0.7 H Eos # (Auto) 0.1 Baso # (Auto) 0.01 PT 17.9 H INR 1.54 APTT 33.2 Sodium Potassium Chloride Carbon Dioxide Anion Gap BUN Creatinine Est GFR ( Amer) Est GFR (Non-Af Amer) POC Glucose (mg/dL) 82 Random Glucose Calcium Total Bilirubin AST ALT Alkaline Phosphatase Troponin I NT-Pro-B Natriuret Pep Total Protein Albumin Globulin Albumin/Globulin Ratio Alcohol, Quantitative Blood Type Antibody Screen BBK History Checked 05/06/18 05/06/18 05/06/18 12:50 12:50 18:00 WBC RBC Hgb Hct MCV MCH MCHC RDW Plt Count MPV Gran % Lymph % (Auto) [place] % (Auto) Eos % (Auto) Baso % (Auto) Gran # Lymph # (Auto) [place] # (Auto) Eos # (Auto) Baso # (Auto) PT INR APTT Sodium 134 Potassium 4.5 Chloride 108 H Carbon Dioxide 20 L Anion Gap 11 BUN 20 Creatinine 1.1 Est GFR ( Amer) > 60 Est GFR (Non-Af Amer) 50 POC Glucose (mg/dL) Random Glucose 83 Calcium 8.7 Total Bilirubin 0.8 AST 200 H D ALT 92 H Alkaline Phosphatase 163 H D Troponin I < 0.01 NT-Pro-B Natriuret Pep 160 Total Protein 6.8 Albumin 3.5 Globulin 3.3 Albumin/Globulin Ratio 1.1 Alcohol, Quantitative < 10 Blood Type A POSITIVE Antibody Screen Negative BBK History Checked Patient has bt Attending/Attestation - Attestation I have personally seen and examined this patient.: Yes I have fully participated in the care of the patient.: Yes I have reviewed all pertinent clinical information: Yes Notes (Text): 05/06/18 62 year old female with past medical history of afib on eliquis, CVA, DVT s/p IVC filter, protein C deficiency, asthma, hypertension and warfarin induced necrosis who presents with complaint of trouble with speech and right sided weakness. CT head was negative for acute findings. CT H/N showed no definate occlusion or stenosis. Neurology evaluation is requested. MRI brain and echocardiogram are ordered. Will also obtain PT and speech/swallow evaluations. She is not on statin due to high LFTs and prior medication reaction per patient. Will obtain abdominal ultrasound. Nik Benz MD Hospitalist.
[2018-05-06] MEDS ORDERED: Albuterol-Ipratrop 3 mg / 0.5 (3 ml) UD IH PRN (16:17)
--- NOTE | 2018-05-06 19:17 | US ---
HISTORY: Leg pain and swelling. Evaluate for DVT PHYSICIAN(S): Stewart Aden MD. TECHNIQUE: Duplex sonography and color-flow Doppler with graded compression were used to evaluate the deep venous systems of both lower extremities. FINDINGS: The visualized deep venous systems of both lower extremities are sonographically normal and compressible. Normal wave forms and augmentation are seen. There is no sonographic evidence for deep venous thrombosis in the visualized segments of both lower extremities. IMPRESSION: No sonographic evidence for deep venous thrombosis in the visualized segments of both lower extremities.
[2018-05-06] MEDS ORDERED: oxyCODONE 10 mg Immediate Release Tab PO STA (22:33)
[2018-05-06] MEDS ORDERED: Influenza Vaccine 60 mcg/0.5 mL SYR (4YR UP) IM ONE (22:47)
[2018-05-06] MEDS ORDERED: Pneumococcal 23-Valent Vaccine IM ONE (22:47)
[2018-05-07 06:42] LABS: INR 1.26; PROTHROMBIN TIME 14.5 SECONDS (9.4-12.5)
[2018-05-07 06:56] LABS: ALBUMIN 3.1 g/dL (3.0-4.8); ALT/SGPT 85 U/L (7-56); AST/SGOT 128 U/L (14-36); BLOOD UREA NITROGEN 13 mg/dL (7-21); CALCIUM 8.6 mg/dL (8.4-10.5); GFR NON-AFRICAN AMERICAN > 60; HDL CHOLESTEROL 56 mg/dL (29-60)
[2018-05-07 06:59] LABS: BASO # 0.02 K/mm3 (0.0-2.0); BASO % 0.5 % (0.0-3.0); EOS # 0.2 (0.0-0.7); EOS % 4.4 % (1.5-5.0); GRAN # 1.92 (1.4-6.5); HEMOGLOBIN 10.2 g/dL (12.0-16.0); LYMPH # 1.7 (1.2-3.4); LYMPH % 38.9 % (22.0-35.0); MEAN CELL VOLUME 94.7 fl (80.0-105.0); MEAN CORPUSCULAR HGB CONC 31.7 g/dl (31.0-37.0); MEAN PLATELET VOLUME 9.6 fl (7.0-11.0); MONO # 0.5 (0.1-0.6); MONO % 12.2 % (1.0-6.0); RBC 3.4 10^6/uL (3.5-6.1); RED CELL DISTRIBUTION WIDTH 14.8 % (11.5-14.5); WHITE BLOOD COUNT 4.4 10^3/uL (4.5-11.0)
[2018-05-07 07:03] LABS: LDL CHOLESTEROL 77 mg/dL (0-129)
--- NOTE | 2018-05-07 10:31 | US ---
Date of service: 05/07/2018 HISTORY: transaminitis and abdominal pain COMPARISON: None. TECHNIQUE: Sonographic evaluation of the abdomen. FINDINGS: LIVER: Measures 17.5 cm. Normal echogenicity of the liver parenchyma. No mass. No intrahepatic bile duct dilatation. GALLBLADDER: Gallstones. No evidence of cholecystitis no focal tenderness wall thickness 4 mm COMMON BILE DUCT: Measures 10 mm. No stones. No dilatation. PANCREAS: Not visualized due to bowel gas RIGHT KIDNEY: Measures 11.0 x 4.9 x 5.6cm. Normal echogenicity. No calculus, mass, or hydronephrosis. 2.4 cm cyst LEFT KIDNEY: Measures 10.2 x 4.9 x 5.1cm. Normal echogenicity. No calculus, mass, or hydronephrosis. SPLEEN: Normal in size and contour. No mass. 9.0 x 3.5 x 4.0 cm AORTA: No aneurysmal dilatation. IVC: Unremarkable. OTHER FINDINGS: None. IMPRESSION: Gallstone. No evidence of cholecystitis. Dilated common bile duct measuring 10 mm.
--- NOTE | 2018-05-07 12:30 | CP.PCM.PN ---
Subjective - Date & Time of Evaluation Date of Evaluation: 05/07/18 Time of Evaluation: 12:25 - Subjective Subjective: Neurology Progress Note for Dr. Fox Patient seen and examined at bedside. No acute overnight events. Patient states that weakness, numbness, and dysarthria is improved. Patient CP, SOB, n/v/d, abdominal pain, fever, chills, or dizziness. Objective - Vital Signs/Intake and Output Vital Signs (last 24 hours): Temp Pulse Resp BP Pulse Ox 98.0 F 79 20 99/57 L 100 05/07/18 06:00 05/07/18 06:00 05/07/18 06:00 05/07/18 06:00 05/07/18 06:00 Intake and Output: 05/07/18 05/07/18 06:59 18:59 Intake Total 940 Balance 940 - Medications Medications: Current Medications Albuterol/Ipratropium (Duoneb 3 Mg/0.5 Mg (3 Ml) Ud) 3 ml IH [id number] PRN PRN Reason: Shortness of Breath Apixaban (Eliquis) 5 mg PO BID [facility]; Protocol Last Admin: 05/07/18 09:54 Dose: 5 mg Aspirin (Ecotrin) 81 mg PO DAILY [facility] Last Admin: 05/07/18 09:54 Dose: 81 mg Gabapentin (Neurontin) 400 mg PO TID [facility]; Protocol Last Admin: 05/07/18 09:54 Dose: 400 mg Sodium Chloride (Sodium Chloride 0.9%) 1,000 mls @ 100 mls/hr IV .Q10H [facility] Last Admin: 05/06/18 22:43 Dose: 100 mls/hr Pantoprazole Sodium (Protonix Ec Tab) 40 mg PO ACB [facility] - Labs Labs: 05/07/18 06:00 05/07/18 06:00 PT 14.5 SECONDS (9.4-12.5) H 05/07/18 06:00 INR 1.26 05/07/18 06:00 APTT 32.0 Seconds (25.1-36.5) 05/07/18 06:00 - Constitutional Appears: No Acute Distress - Head Exam Head Exam: NORMAL INSPECTION - Eye Exam Eye Exam: Normal appearance Pupil Exam: NORMAL ACCOMODATION - ENT Exam ENT Exam: Mucous Membranes Moist, Normal Exam - Respiratory Exam Respiratory Exam: Clear to Ausculation Bilateral, NORMAL BREATHING PATTERN - Cardiovascular Exam Cardiovascular Exam: REGULAR RHYTHM - GI/Abdominal Exam GI & Abdominal Exam: Soft, Normal Bowel Sounds - Neurological Exam Neurological Exam: Alert, Awake, CN II-XII Intact, Oriented x3 - Psychiatric Exam Psychiatric exam: Normal Affect - Skin Skin Exam: Normal Color Assessment and Plan - Assessment and Plan (Free Text) Assessment: 62 yo F with PMH of protein C deficiency, asthma, HLD, HTN, atrial fibrillation, DVT, CVA, fibroids, and warfarin necrosis presents to [facility] with dysarthria, confusion, and right sided weakness. Neurology consulted to r/o CVA vs TIA. Plan: - Cont Eliquis and ASA - CT head negative - Head/Neck CTA negative - If MRI negative, patient is clear from neuro standpoint Patient seen and discussed with in detail with Dr. Fox. Ted Thomas DO PGY2
--- NOTE | 2018-05-07 16:21 | CARD ---
APPROVED REPORT Date of service: 05/07/2018 EKG Measurement Heart [id number] <Conclusion> Normal sinus rhythm Cannot rule out Anterior infarct, age undetermined Abnormal ECG
--- NOTE | 2018-05-07 16:25 | CP.PCM.PN ---
<Jeremiah Locke - Last Filed: 05/07/18 16:21> Subjective - Date & Time of Evaluation Date of Evaluation: 05/07/18 Time of Evaluation: 16:21 - Subjective Subjective: Jeremiah Locke, PGY-1, Internal Medicine Progress Note for Dr. Benz Patient seen and evaluated at bedside. Patient reported no acute overnight events. Today, patient complains of headache, diffuse body aches, but weakness was improved from yesterday. Patient denies facial droop, dysarthria, dysphagia, nausea, vomiting, change in bowel movements, shortness of breath, dysuria, and hematuria. 12-point ROS was negative except for what was mentioned above. Objective - Vital Signs/Intake and Output Vital Signs (last 24 hours): Temp Pulse Resp BP Pulse Ox 98.2 F 90 19 120/77 100 05/07/18 12:00 05/07/18 14:00 05/07/18 12:00 05/07/18 12:00 05/07/18 06:00 Intake and Output: 05/07/18 05/07/18 06:59 18:59 Intake Total 940 Balance 940 - Medications Medications: Current Medications Albuterol/Ipratropium (Duoneb 3 Mg/0.5 Mg (3 Ml) Ud) 3 ml IH [id number] PRN PRN Reason: Shortness of Breath Apixaban (Eliquis) 5 mg PO BID [facility]; Protocol Last Admin: 05/07/18 09:54 Dose: 5 mg Aspirin (Ecotrin) 81 mg PO DAILY [facility] Last Admin: 05/07/18 09:54 Dose: 81 mg Cyclobenzaprine HCl (Flexeril) 10 mg PO TID [facility] Last Admin: 05/07/18 14:52 Dose: 10 mg Gabapentin (Neurontin) 600 mg PO TID [facility]; Protocol Last Admin: 05/07/18 14:51 Dose: 600 mg Sodium Chloride (Sodium Chloride 0.9%) 1,000 mls @ 100 mls/hr IV .Q10H [facility] Last Admin: 05/06/18 22:43 Dose: 100 mls/hr Oxycodone HCl (Oxycodone Immediate Release Tab) 30 mg PO Q8 PRN PRN Reason: Pain, moderate (4-7) Pantoprazole Sodium (Protonix Ec Tab) 40 mg PO ACB [facility] Zolpidem Tartrate (Ambien) 10 mg PO HS PRN; Protocol PRN Reason: Insomnia - Labs Labs: 05/07/18 06:00 05/07/18 06:00 PT 14.5 SECONDS (9.4-12.5) H 05/07/18 06:00 INR 1.26 05/07/18 06:00 APTT 32.0 Seconds (25.1-36.5) 05/07/18 06:00 - Constitutional Appears: Well, Non-toxic, No Acute Distress - Head Exam Head Exam: ATRAUMATIC, NORMAL INSPECTION, NORMOCEPHALIC - Eye Exam Eye Exam: EOMI Pupil Exam: PERRL - ENT Exam ENT Exam: Mucous Membranes Moist - Respiratory Exam Respiratory Exam: Clear to Ausculation Bilateral, NORMAL BREATHING PATTERN - Cardiovascular Exam Cardiovascular Exam: REGULAR RHYTHM, RRR - GI/Abdominal Exam GI & Abdominal Exam: Soft, Normal Bowel Sounds - Extremities Exam Extremities Exam: Full ROM - Neurological Exam Neurological Exam: Alert, Awake, CN II-XII Intact, Normal Gait, Oriented x3 Neuro motor strength exam: Left Upper Extremity: 5, Right Upper Extremity: 4, Left Lower Extremity: 5, Right Lower Extremity: 4 - Skin Skin Exam: Dry, Intact Assessment and Plan - Assessment and Plan (Free Text) Assessment: 62 year old female with past medical history of protein C deficiency, asthma, dyslipidemia, hypertension, atrial fibrillation, DVT with IVC filter and eliquis, previous CVA, warfarin induced necrosis, and fibroids presents with trouble speaking and confusion. Plan: Right sided weakness 2/2 to TIA vs. ischemic stroke -CT Head without contrast: no acute findings -Head and Neck CTA: no definite occlusion or significant stenosis appreciated once again. 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 -Lipid panel to evaluate for possible TIA vs. ischemic stroke was unremarkable -Prior Brain MRI on prior admission this year: old lacunar infarct in right paramedian mary kay -Prior Carotid and vertebral duplex on prior admission this year: bilateral 20- 39% proximal ICA stenosis, anterograde flow in both vertebral arteries -Prior Duplex ultrasound of bilateral lower extremities on prior admission this year. -Aspiriation precautions, fall precautions, swallow evaluation, speech evaluation -Neuro check Q4 -Physical therapy and occupational therapy evaluation ordered. -Speech therapy reports no dysphagia. -As per director of casework, patient is independent at home with ADLs and ambulation. She ambulated with cane at home. As per director of casework, home work services vs. subacute rehab when medically stable. -Echocardiogram with bubble study performed. Awaiting results -MRI Head without contrast ordered to evaluate for ischemia -Aspirin 81 mg daily, hold lipitor due to patient's myopathy reaction. Continue with eliquis. Continue with gabapentin for neuropathy. -Dr. Fox, Neurology, consulted for recommendations Bilateral lower extremity edema 2/2 to possible DVT -Patient has history of Protein C deficiency, prior DVT with IVC filter and on eliquis, and prior CVA -Matthew's sign positive on right lower extremity. -Doppler ultrasound of bilateral lower extremities: negative for DVT Elevated Liver Function Test -Abdominal Ultrasound: gallstone. No evidence of cholecystitis. Dilated common bile duct measuring 10 mm. Pancreas not visualized due to bowel gas. -INR: 1.26 -AST:ALT ratio>2:1 yesterday and each less than 300, so possible alcohol etiology vs. lipitor side effect -Alcohol level: <10 Hypertension -BP: 120/77. -Continue to monitor. Hold home metoprolol at this time. Atrial Fibrillation -EKG: NSR with HR at 75 -Echocardiogram ordered. -HR: 66. Hold home metoprolol at this time -Continue home eliquis Chronic Pain Syndrome -Continue with home cyclobenzaprine 10 mg TID, oxycodone 30 mg Q8PRN. Dyslipidemia -Lipid panel unremarkable -Lipitor held due to myopathy reaction DVT prophylaxis: eliquis 5 mg BID GI prophylaxis: protonix 40 mg daily Patient plan discussed with Dr. Benz. <Nik Benz - Last Filed: 05/07/18 17:34> Objective - Vital Signs/Intake and Output Vital Signs (last 24 hours): Temp Pulse Resp BP Pulse Ox 98.2 F 90 19 120/77 100 05/07/18 12:00 05/07/18 14:00 05/07/18 12:00 05/07/18 12:00 05/07/18 06:00 Intake and Output: 05/07/18 05/07/18 06:59 18:59 Intake Total 940 Balance 940 - Medications Medications: Current Medications Albuterol/Ipratropium (Duoneb 3 Mg/0.5 Mg (3 Ml) Ud) 3 ml IH [id number] PRN PRN Reason: Shortness of Breath Apixaban (Eliquis) 5 mg PO BID [facility]; Protocol Last Admin: 05/07/18 09:54 Dose: 5 mg Aspirin (Ecotrin) 81 mg PO DAILY [facility] Last Admin: 05/07/18 09:54 Dose: 81 mg Cyclobenzaprine HCl (Flexeril) 10 mg PO TID [facility] Last Admin: 05/07/18 14:52 Dose: 10 mg Gabapentin (Neurontin) 600 mg PO TID [facility]; Protocol Last Admin: 05/07/18 14:51 Dose: 600 mg Sodium Chloride (Sodium Chloride 0.9%) 1,000 mls @ 100 mls/hr IV .Q10H [facility] Last Admin: 05/06/18 22:43 Dose: 100 mls/hr Oxycodone HCl (Oxycodone Immediate Release Tab) 30 mg PO Q8 PRN PRN Reason: Pain, moderate (4-7) Pantoprazole Sodium (Protonix Ec Tab) 40 mg PO ACB [facility] Zolpidem Tartrate (Ambien) 10 mg PO HS PRN; Protocol PRN Reason: Insomnia - Labs Labs: 05/07/18 06:00 05/07/18 06:00 PT 14.5 SECONDS (9.4-12.5) H 05/07/18 06:00 INR 1.26 05/07/18 06:00 APTT 32.0 Seconds (25.1-36.5) 05/07/18 06:00 Attending/Attestation - Attestation I have personally seen and examined this patient.: Yes I have fully participated in the care of the patient.: Yes I have reviewed all pertinent clinical information, including history, physical exam and plan: Yes Notes (Text): 05/07/18 17:32 62 year old female with past medical history of afib on eliquis, CVA, DVT s/p IVC filter, protein C deficiency, asthma, hypertension and warfarin induced necrosis who presented with complaint of trouble with speech and right sided weakness. CT head was negative for acute findings. CT H/N showed no definate occlusion or stenosis. Neurology evaluation was appreciated. MRI brain and echocardiogram are pending as well as PT evaluation. Shis on on aspirin but not on statin due to high LFTs and prior medication reaction per patient. Abdominal ultrasound was reviewed showing gallstone and CBD dilatation, also seen on last MRCP. She is tolerating diet without abdominal complaints. Recommended outpatient GI follow up. Nik Benz MD Hospitalist.
[2018-05-07 17:10] LABS: BARBITURATES, UR NEGATIVE (NEGATIVE); BENZODIAZEPINES, UR NEGATIVE (NEGATIVE); OPIATES, UR POSITIVE (NEGATIVE); PHENCYCLIDINE, UR NEGATIVE (NEGATIVE)
[2018-05-07] MEDS: oxyCODONE 30 mg Immediate Release Tab PO PRN (17:47)
--- NOTE | 2018-05-07 17:52 | CARD ---
APPROVED REPORT Date of service: 05/07/2018 EXAM: Two-dimensional and M-mode echocardiogram with Doppler and color Doppler. INDICATION CVA/TIA bubble study 2D DIMENSIONS Left Atrium (2D)3.1 (1.6-4.0cm)IVSd1.1 (0.7-1.1cm) LVDd3.9 (3.9-5.9cm)PWd1.0 (0.7-1.1cm) LVDs2.7 (2.5-4.0cm)FS (%) 30.4 % LVEF (%)58.5 (>50%) M-Mode DIMENSIONS Aortic Root2.60 (2.2-3.7cm)Aortic Cusp Exc.1.60 (1.5-2.0cm) Aortic Valve AoV Peak Qprbhqtp683.0cm/Juliana Peak GR.17mmHg Mitral Valve MV E Lgcxepwr64.1cm/sMV A Jtfnljvi750.0cm/sE/A ratio0.8 TDI E/Lateral E'0.0E/Medial E'0.0 Tricuspid Valve TR Peak Izaqblfl490lz/sRAP MGLOCGRL64lyXaML Peak Gr.28mmHg [id number] LEFT VENTRICLE The left ventricle is normal size. There is normal left ventricular wall thickness. The left ventricular function is normal.EF-55-60% There is normal LV segmental wall motion. Transmitral Doppler flow pattern is Grade III-reversible restrictive diastolic dysfunction. No left ventricle thrombus noted on this study. There is no ventricular septal defect visualized. There is no left ventricular aneurysm. There is no mass noted in the left ventricle. RIGHT VENTRICLE The right ventricle is normal size. There is normal right ventricular wall thickness. The right ventricular systolic function is normal. ATRIA The left atrium size is normal. The right atrium size is normal. The interatrial septum is intact with no evidence for an atrial septal defect by bubble study. AORTIC VALVE The aortic valve is thickened but opens well. There is trace aortic regurgitation. There is no aortic valvular stenosis. There is no aortic valvular vegetation. MITRAL VALVE The mitral valve is thickened but opens well. Mitral regurgitation is trace to mild. There is no mitral valve stenosis. There is no evidence of mitral valve prolapse. TRICUSPID VALVE The tricuspid valve leaflets are thickened , but open well. There is mild tricuspid regurgitation.RVSP-38 mmof Hg. There is no tricuspid valve stenosis. There is no tricuspid valve prolapse or vegetation. PULMONIC VALVE The pulmonary valve is normal in structure. There is no pulmonic valvular regurgitation. There is no pulmonic valvular stenosis. GREAT VESSELS The aortic root is normal in size. The ascending aorta is normal in size. The pulmonary artery is normal. The IVC is normal in size and collapses >50% with inspiration. PERICARDIAL EFFUSION There is no pleural effusion. There is no pericardial effusion. <Conclusion> Normal chamber Size. EF-55-60% Mitral regurgitation is trace to mild. There is mild tricuspid regurgitation.RVSP-38 mmof Hg. There is trace aortic regurgitation. The interatrial septum is intact with no evidence for an atrial septal defect by bubble study.
[2018-05-07] MEDS: Sodium Chloride 0.9% 1,000 ML IV SCH ×2 (21:33→23:59)
[2018-05-08] MEDS: oxyCODONE 30 mg Immediate Release Tab PO PRN ×3 (03:11→23:22)
[2018-05-08] MEDS: Sodium Chloride 0.9% 1,000 ML IV SCH ×2 (04:42→16:15)
[2018-05-08] MEDS: Pantoprazole 40 mg EC Tab PO SCH (08:21)
[2018-05-08 08:37] LABS: BASO # 0.02 K/mm3 (0.0-2.0); BASO % 0.5 % (0.0-3.0); EOS # 0.2 (0.0-0.7); EOS % 5.3 % (1.5-5.0); GRAN # 1.7 (1.4-6.5); GRAN % 38.8 % (50.0-68.0); HEMOGLOBIN 10.1 g/dL (12.0-16.0); LYMPH % 44.6 % (22.0-35.0); MEAN CELL VOLUME 94.3 fl (80.0-105.0); MEAN CORPUSCULAR HEMOGLOBIN 30.2 pg (25.0-35.0); MEAN CORPUSCULAR HGB CONC 32.1 g/dl (31.0-37.0); MEAN PLATELET VOLUME 9.5 fl (7.0-11.0); MONO # 0.5 (0.1-0.6); MONO % 10.8 % (1.0-6.0); RBC 3.34 10^6/uL (3.5-6.1); RED CELL DISTRIBUTION WIDTH 14.7 % (11.5-14.5); WHITE BLOOD COUNT 4.4 10^3/uL (4.5-11.0)
[2018-05-08 08:38] LABS: ALT/SGPT 62 U/L (7-56); AST/SGOT 60 U/L (14-36); BLOOD UREA NITROGEN 10 mg/dL (7-21); CALCIUM 8.6 mg/dL (8.4-10.5); GFR NON-AFRICAN AMERICAN > 60
[2018-05-08 08:48] LABS: TROPONIN I < 0.01 ng/mL
--- NOTE | 2018-05-08 09:50 | CARD ---
APPROVED REPORT Date of service: 05/08/2018 EKG Measurement Heart [id number] <Conclusion> Normal sinus rhythm Possible Anterior infarct, age undetermined Abnormal ECG
--- NOTE | 2018-05-08 10:31 | MRI ---
Date of service: 05/07/2018 PROCEDURE: MRI BRAIN WITHOUT CONTRAST HISTORY: r/o stroke COMPARISON: MRI 12/19/2017 TECHNIQUE: Multiplanar, multisequence MR images of the brain were obtained without intravenous contrast enhancement. FINDINGS: HEMORRHAGE: None DWI: No evidence of an acute or early subacute infarction. BRAIN PARENCHYMA: No mass effect or edema. There is an old lacunar infarct or microvascular change in the right side of the mary kay. The study is otherwise unremarkable VENTRICLES: Unremarkable. No hydrocephalus. CRANIUM: Unremarkable. ORBITS: Grossly unremarkable. PARANASAL SINUSES/MASTOIDS: Clear VASCULAR SYSTEM: Skull base flow voids intact. OTHER FINDINGS: The report concurs with the preliminary [facility] report IMPRESSION: No acute intracranial findings
--- NOTE | 2018-05-08 18:33 | CP.PCM.PN ---
<Jeremiah Locke - Last Filed: 05/08/18 18:29> Subjective - Date & Time of Evaluation Date of Evaluation: 05/08/18 Time of Evaluation: 18:29 - Subjective Subjective: Jeremiah Locke, PGY-1, Internal Medicine Progress Note for Dr. Benz Patient seen and evaluated at bedside. Patient reported chest pain this morning. Chest pain was worked up with EKG and troponin, which were both less than 0.01. EKG showed NSR. Patient reports headache, abdominal pain, improved weakness today. 12-point ROS is negative except for what is mentioned above. Objective - Vital Signs/Intake and Output Vital Signs (last 24 hours): Temp Pulse Resp BP Pulse Ox 97.9 F 99 H 20 136/90 99 05/08/18 12:00 05/08/18 14:00 05/08/18 12:00 05/08/18 12:00 05/08/18 06:00 Intake and Output: 05/08/18 05/08/18 06:59 18:59 Intake Total 1320 Balance 1320 - Medications Medications: Current Medications Albuterol/Ipratropium (Duoneb 3 Mg/0.5 Mg (3 Ml) Ud) 3 ml IH [id number] PRN PRN Reason: Shortness of Breath Apixaban (Eliquis) 5 mg PO BID [facility]; Protocol Last Admin: 05/08/18 18:20 Dose: 5 mg Aspirin (Ecotrin) 81 mg PO DAILY [facility] Last Admin: 05/08/18 09:28 Dose: 81 mg Cyclobenzaprine HCl (Flexeril) 10 mg PO TID [facility] Last Admin: 05/08/18 18:20 Dose: 10 mg Gabapentin (Neurontin) 600 mg PO TID [facility]; Protocol Last Admin: 05/08/18 18:20 Dose: 600 mg Sodium Chloride (Sodium Chloride 0.9%) 1,000 mls @ 100 mls/hr IV .Q10H [facility] Last Admin: 05/08/18 16:15 Dose: Not Given Oxycodone HCl (Oxycodone Immediate Release Tab) 30 mg PO Q8 PRN PRN Reason: Pain, moderate (4-7) Last Admin: 05/08/18 14:02 Dose: 30 mg Pantoprazole Sodium (Protonix Ec Tab) 40 mg PO ACB [facility] Last Admin: 05/08/18 08:21 Dose: 40 mg Zolpidem Tartrate (Ambien) 10 mg PO HS PRN; Protocol PRN Reason: Insomnia - Labs Labs: 05/08/18 08:15 05/08/18 08:15 PT 14.5 SECONDS (9.4-12.5) H 05/07/18 06:00 INR 1.26 05/07/18 06:00 APTT 32.0 Seconds (25.1-36.5) 05/07/18 06:00 - Constitutional Appears: Well, Non-toxic, No Acute Distress - Head Exam Head Exam: ATRAUMATIC, NORMAL INSPECTION, NORMOCEPHALIC - Eye Exam Eye Exam: EOMI Pupil Exam: PERRL - Respiratory Exam Respiratory Exam: Clear to Ausculation Bilateral, NORMAL BREATHING PATTERN - Cardiovascular Exam Cardiovascular Exam: REGULAR RHYTHM - GI/Abdominal Exam GI & Abdominal Exam: Soft, Normal Bowel Sounds. absent: Tenderness Additional comments: darkened areas of necrosis on lower abdomen - Extremities Exam Extremities Exam: Full ROM - Neurological Exam Neurological Exam: Alert, Awake, CN II-XII Intact, Oriented x3 - Skin Additional comments: darkened areas of necrosis on lower abdomen Assessment and Plan - Assessment and Plan (Free Text) Assessment: 62 year old female with past medical history of protein C deficiency, asthma, dyslipidemia, hypertension, atrial fibrillation, DVT with IVC filter and eliquis, previous CVA, warfarin induced necrosis, and fibroids presents with trouble speaking and confusion. Plan: Right sided weakness 2/2 to TIA vs. ischemic stroke -CT Head without contrast: no acute findings -Head and Neck CTA: no definite occlusion or significant stenosis appreciated once again. 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 -Lipid panel to evaluate for possible TIA vs. ischemic stroke was unremarkable -Prior Brain MRI on prior admission this year: old lacunar infarct in right paramedian mary kay -Prior Carotid and vertebral duplex on prior admission this year: bilateral 20- 39% proximal ICA stenosis, anterograde flow in both vertebral arteries -Prior Duplex ultrasound of bilateral lower extremities on prior admission this year. -Aspiration precautions, fall precautions, swallow evaluation, speech evaluation -Neuro check Q4 -Physical therapy and occupational therapy evaluation ordered. -Speech therapy reports no dysphagia. -As per family preservation caseworker, patient is independent at home with ADLs and ambulation. She ambulated with cane at home. As per family preservation caseworker, home work services vs. subacute rehab when medically stable. Physical therapy recommends home with services. -Echocardiogram with bubble study: EF 55-60%, mitral regurgitation is trace to mild, mild tricuspid regurgitation, aortic regurgitation, no evidence of ASD -MRI Head without contrast: no acute intracranial findings -Aspirin 81 mg daily, hold lipitor due to patient's myopathy reaction. Continue with eliquis. Continue with gabapentin for neuropathy. -Dr. Fox, Neurology, consulted for recommendations Chest Pain Episode 2/2 to Costochondritis vs. Atrial Fibrillation -EKG: NSR with HR of 90 -Troponinx2 are negative. -Doubt cardiac cause of chest pain at this time. Bilateral lower extremity edema 2/2 to possible DVT -Patient has history of Protein C deficiency, prior DVT with IVC filter and on eliquis, and prior CVA -Matthew's sign positive on right lower extremity. -Doppler ultrasound of bilateral lower extremities: negative for DVT Elevated Liver Function Test -Abdominal Ultrasound: gallstone. No evidence of cholecystitis. Dilated common bile duct measuring 10 mm. Pancreas not visualized due to bowel gas. -INR: 1.26 -AST:ALT ratio>2:1 yesterday and each less than 300, so possible alcohol etiology vs. lipitor side effect -Alcohol level: <10 Hypertension -BP: 120/77. -Continue to monitor. Hold home metoprolol at this time. Atrial Fibrillation -EKG: NSR with HR at 75 -Echocardiogram with bubble study: EF 55-60%, mitral regurgitation is trace to mild, mild tricuspid regurgitation, aortic regurgitation, no evidence of ASD -HR: 66. Hold home metoprolol at this time -Continue home eliquis Asthma -Duonebs PRN Normocytic Anemia -Hgb: 10.1 which is around baseline -Continue to follow up. Chronic Pain Syndrome -Continue with home cyclobenzaprine 10 mg TID, oxycodone 30 mg Q8PRN. Dyslipidemia -Lipid panel unremarkable -Lipitor held due to myopathy reaction DVT prophylaxis: eliquis 5 mg BID GI prophylaxis: protonix 40 mg daily Patient plan discussed with Dr. Benz. <Nik Benz - Last Filed: 05/09/18 06:29> Objective - Vital Signs/Intake and Output Vital Signs (last 24 hours): Temp Pulse Resp BP Pulse Ox 97.4 F L 115 H 19 149/89 98 05/09/18 06:00 05/09/18 06:00 05/09/18 06:00 05/09/18 06:00 05/09/18 06:00 Intake and Output: 05/08/18 05/09/18 18:59 06:59 Intake Total 120 1020 Output Total 1 Balance 120 1019 - Medications Medications: Current Medications Albuterol/Ipratropium (Duoneb 3 Mg/0.5 Mg (3 Ml) Ud) 3 ml IH [id number] PRN PRN Reason: Shortness of Breath Apixaban (Eliquis) 5 mg PO BID [facility]; Protocol Last Admin: 05/08/18 18:20 Dose: 5 mg Aspirin (Ecotrin) 81 mg PO DAILY [facility] Last Admin: 05/08/18 09:28 Dose: 81 mg Cyclobenzaprine HCl (Flexeril) 10 mg PO TID [facility] Last Admin: 05/08/18 18:20 Dose: 10 mg Gabapentin (Neurontin) 600 mg PO TID [facility]; Protocol Last Admin: 05/08/18 18:20 Dose: 600 mg Oxycodone HCl (Oxycodone Immediate Release Tab) 30 mg PO Q8 PRN PRN Reason: Pain, moderate (4-7) Last Admin: 05/08/18 23:22 Dose: 30 mg Pantoprazole Sodium (Protonix Ec Tab) 40 mg PO ACB [facility] Last Admin: 05/08/18 08:21 Dose: 40 mg Zolpidem Tartrate (Ambien) 10 mg PO HS PRN; Protocol PRN Reason: Insomnia - Labs Labs: 05/08/18 08:15 05/08/18 08:15 PT 14.5 SECONDS (9.4-12.5) H 05/07/18 06:00 INR 1.26 05/07/18 06:00 APTT 32.0 Seconds (25.1-36.5) 05/07/18 06:00 Attending/Attestation - Attestation I have personally seen and examined this patient.: Yes I have fully participated in the care of the patient.: Yes I have reviewed all pertinent clinical information, including history, physical exam and plan: Yes Notes (Text): 05/08/18 62 year old female with past medical history of afib on eliquis, CVA, DVT s/p IVC filter, protein C deficiency, asthma, hypertension and warfarin induced necrosis who presented with complaint of trouble with speech and right sided weakness. CT head was negative for acute findings. CT H/N showed no definite occlusion or stenosis. MRI brain and echocardiogram with bubble study were negative as well. Neurology is following. She is on aspirin but not on statin due to high LFTs and prior medication reaction per patient. She is on eliquis as well. She is still pending PT evaluation which was not done today as she was complaining of chest pain. Serial cardiac enzymes were negative and EKG shows no ischemic changes. Abdominal ultrasound showed gallstone and CBD dilatation, also seen on last MRCP. She is tolerating diet without abdominal complaints. Recommended outpatient GI follow up. Overall her symptoms have improved and she is pending PT evaluation for d/c recommendations. Nik Benz MD Hospitalist.
--- NOTE | 2018-05-08 23:32 | CP.PCM.PN ---
Subjective - Date & Time of Evaluation Date of Evaluation: 05/08/18 Time of Evaluation: 11:00 - Subjective Subjective: Patient is doing well, stroke symptoms resolved. Objective - Vital Signs/Intake and Output Vital Signs (last 24 hours): Temp Pulse Resp BP Pulse Ox 97.4 F L 119 H 20 128/86 99 05/08/18 18:00 05/08/18 22:00 05/08/18 18:00 05/08/18 18:00 05/08/18 06:00 Intake and Output: 05/08/18 05/09/18 18:59 06:59 Intake Total 120 Balance 120 - Medications Medications: Current Medications Albuterol/Ipratropium (Duoneb 3 Mg/0.5 Mg (3 Ml) Ud) 3 ml IH [id number] PRN PRN Reason: Shortness of Breath Apixaban (Eliquis) 5 mg PO BID [facility]; Protocol Last Admin: 05/08/18 18:20 Dose: 5 mg Aspirin (Ecotrin) 81 mg PO DAILY [facility] Last Admin: 05/08/18 09:28 Dose: 81 mg Cyclobenzaprine HCl (Flexeril) 10 mg PO TID [facility] Last Admin: 05/08/18 18:20 Dose: 10 mg Gabapentin (Neurontin) 600 mg PO TID [facility]; Protocol Last Admin: 05/08/18 18:20 Dose: 600 mg Oxycodone HCl (Oxycodone Immediate Release Tab) 30 mg PO Q8 PRN PRN Reason: Pain, moderate (4-7) Last Admin: 05/08/18 23:22 Dose: 30 mg Pantoprazole Sodium (Protonix Ec Tab) 40 mg PO ACB [facility] Last Admin: 05/08/18 08:21 Dose: 40 mg Zolpidem Tartrate (Ambien) 10 mg PO HS PRN; Protocol PRN Reason: Insomnia - Labs Labs: 05/08/18 08:15 05/08/18 08:15 PT 14.5 SECONDS (9.4-12.5) H 05/07/18 06:00 INR 1.26 05/07/18 06:00 APTT 32.0 Seconds (25.1-36.5) 05/07/18 06:00
[2018-05-09 06:23] VITALS: O2SAT 98
[2018-05-09 07:33] LABS: BASO # 0.04 K/mm3 (0.0-2.0); BASO % 0.8 % (0.0-3.0); EOS # 0.2 (0.0-0.7); EOS % 5.1 % (1.5-5.0); GRAN # 1.62 (1.4-6.5); GRAN % 34.1 % (50.0-68.0); HEMOGLOBIN 11.1 g/dL (12.0-16.0); LYMPH # 2.4 (1.2-3.4); LYMPH % 51.4 % (22.0-35.0); MEAN CORPUSCULAR HEMOGLOBIN 30.6 pg (25.0-35.0); MEAN CORPUSCULAR HGB CONC 32.2 g/dl (31.0-37.0); MEAN PLATELET VOLUME 9.6 fl (7.0-11.0); MONO # 0.4 (0.1-0.6); MONO % 8.6 % (1.0-6.0); RBC 3.63 10^6/uL (3.5-6.1); RED CELL DISTRIBUTION WIDTH 14.5 % (11.5-14.5); WHITE BLOOD COUNT 4.8 10^3/uL (4.5-11.0)
[2018-05-09] MEDS: oxyCODONE 30 mg Immediate Release Tab PO PRN (07:58)
[2018-05-09] MEDS: Pantoprazole 40 mg EC Tab PO SCH (07:59)
[2018-05-09 08:24] LABS: ALB/GLOB RATIO 1.1 (1.1-1.8); ALBUMIN 3.5 g/dL (3.0-4.8); ALT/SGPT 48 U/L (7-56); AST/SGOT 42 U/L (14-36); BLOOD UREA NITROGEN 10 mg/dL (7-21); GFR NON-AFRICAN AMERICAN > 60
[2018-05-09 12:30] VITALS: BP 134/92; PULSE 88; RESP 18; TEMP 98
[2018-05-09] MEDS ORDERED: Pneumococcal 23-Valent Vaccine IM ONE (13:11)
[2018-05-09] MEDS ORDERED: Influenza Vaccine 60 mcg/0.5 mL SYR (4YR UP) IM ONE (13:12)
--- NOTE | 2018-05-09 17:09 | CP.PCM.DIS ---
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 Core Measures Referral Routine Comment: tia Physician Instructions: Reason For Exam: eval Transition In Care/Readmission Reduction Routine Comment: tia Physician Instructions: Reason For Exam: eval 05/07/18 06:00 Physician Consult ROUTINE AM Comment: Consulting Provider: Romain Fox Consulting Physician: Romain Fox Reason for Consult: L sided weakness w/ h/o CVA Time Spent in preparation of Discharge (in minutes): 60 Hospital Course - Lab Results Lab Results: Most Recent Lab Values WBC 4.8 10^3/uL (4.5-11.0) 05/09/18 06:30 RBC 3.63 10^6/uL (3.5-6.1) 05/09/18 06:30 Hgb 11.1 g/dL (12.0-16.0) L 05/09/18 06:30 Hct 34.5 % (36.0-48.0) L 05/09/18 06:30 MCV 95.0 fl (80.0-105.0) 05/09/18 06:30 MCH 30.6 pg (25.0-35.0) 05/09/18 06:30 MCHC 32.2 g/dl (31.0-37.0) 05/09/18 06:30 RDW 14.5 % (11.5-14.5) 05/09/18 06:30 Plt Count 260 10^3/uL (120.0-450.0) 05/09/18 06:30 MPV 9.6 fl (7.0-11.0) 05/09/18 06:30 Gran % 34.1 % (50.0-68.0) L 05/09/18 06:30 Lymph % (Auto) 51.4 % (22.0-35.0) H 05/09/18 06:30 [place] % (Auto) 8.6 % (1.0-6.0) H 05/09/18 06:30 Eos % (Auto) 5.1 % (1.5-5.0) H 05/09/18 06:30 Baso % (Auto) 0.8 % (0.0-3.0) 05/09/18 06:30 Gran # 1.62 (1.4-6.5) 05/09/18 06:30 Lymph # (Auto) 2.4 (1.2-3.4) 05/09/18 06:30 [place] # (Auto) 0.4 (0.1-0.6) 05/09/18 06:30 Eos # (Auto) 0.2 (0.0-0.7) 05/09/18 06:30 Baso # (Auto) 0.04 K/mm3 (0.0-2.0) 05/09/18 06:30 PT 14.5 SECONDS (9.4-12.5) H 05/07/18 06:00 INR 1.26 05/07/18 06:00 APTT 32.0 Seconds (25.1-36.5) 05/07/18 06:00 Sodium 138 mmol/L (132-148) 05/09/18 06:30 Potassium 3.8 mmol/L (3.6-5.0) 05/09/18 06:30 Chloride 107 mmol/L (98-107) 05/09/18 06:30 Carbon Dioxide 25 mmol/L (21-33) 05/09/18 06:30 Anion Gap 9 (10-20) L 05/09/18 06:30 BUN 10 mg/dL (7-21) 05/09/18 06:30 Creatinine 0.7 mg/dl (0.7-1.2) 05/09/18 06:30 Est GFR ( Amer) > 60 05/09/18 06:30 Est GFR (Non-Af Amer) > 60 05/09/18 06:30 POC Glucose (mg/dL) 79 mg/dL (65-110) 05/09/18 12:03 Random Glucose 76 mg/dL (70-110) 05/09/18 06:30 Calcium 9.0 mg/dL (8.4-10.5) 05/09/18 06:30 Phosphorus 3.7 mg/dL (2.5-4.5) 05/07/18 06:00 Magnesium 2.0 mg/dL (1.7-2.2) 05/07/18 06:00 Total Bilirubin 0.5 mg/dL (0.2-1.3) 05/09/18 06:30 AST 42 U/L (14-36) H D 05/09/18 06:30 ALT 48 U/L (7-56) 05/09/18 06:30 Alkaline Phosphatase 131 U/L (38-126) H 05/09/18 06:30 Troponin I < 0.01 ng/mL 05/08/18 14:29 NT-Pro-B Natriuret Pep 160 pg/mL (0-450) 05/06/18 12:50 Total Protein 6.8 g/dL (5.8-8.3) 05/09/18 06:30 Albumin 3.5 g/dL (3.0-4.8) 05/09/18 06:30 Globulin 3.3 gm/dL 05/09/18 06:30 Albumin/Globulin Ratio 1.1 (1.1-1.8) 05/09/18 06:30 Triglycerides 82 mg/dL (35-160) 05/07/18 06:00 Cholesterol 154 mg/dL (130-200) 05/07/18 06:00 LDL Cholesterol Direct 77 mg/dL (0-129) 05/07/18 06:00 HDL Cholesterol 56 mg/dL (29-60) 05/07/18 06:00 Urine Opiates Screen Positive (NEGATIVE) H 05/07/18 16:17 Urine Methadone Screen Negative (NEGATIVE) 05/07/18 16:17 Ur Barbiturates Screen Negative (NEGATIVE) 05/07/18 16:17 Ur Phencyclidine Scrn Negative (NEGATIVE) 05/07/18 16:17 Ur Amphetamines Screen Negative (NEGATIVE) 05/07/18 16:17 U Benzodiazepines Scrn Negative (NEGATIVE) 05/07/18 16:17 U Oth Cocaine Metabols Negative (NEGATIVE) 05/07/18 16:17 U Cannabinoids Screen Negative (NEGATIVE) 05/07/18 16:17 Alcohol, Quantitative < 10 mg/dL (0-10) 05/06/18 18:00 Blood Type A POSITIVE 05/06/18 12:50 Antibody Screen Negative 05/06/18 12:50 BBK History Checked Patient has bt 05/06/18 12:50 - Hospital Course Hospital Course: Jeremiah Locke, PGY-1, Internal Medicine Discharge Summary for Dr. Benz 62 year old female with past medical history of protein C deficiency, asthma, dyslipidemia, hypertension, atrial fibrillation, DVT with IVC filter and eliquis, previous CVA, warfarin induced necrosis, and fibroids presented with trouble speaking and confusion. Patient had right arm and leg weakness on presentation. CT of head without contrast showed no acute findings. Head and neck CTA showed no definite occlusion or significant stenosis. 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 Aspirin 325 mg was given on admission and she was started on aspirin 81 mg daily. MRI Head without contrast ordered to evaluate for ischemia showed no acute findings. Echocardiogram with bubble study showed EF of 55-60%, mitral regurgitation that was trace to mild, mild tricuspid regurgitation, aortic regurgitation, aortic regurgitation, but no evidence of atrial septal defect. As per neurology, recommendation were that patient was cleared after MRI was negative for any findings and to continue home eliquis and newly prescribed aspirin. Patient's initial symptoms improved throughout hospital stay. No definite diagnosis as per neurology. Patient also initially presented with bilateral lower extremity edema with a positive Matthew's sign. Patient was found to have negative doppler ultrasound for DVT in bilateral lower extremities. Patient had elevated AST, ALT, and ALP on presentation. Abdominal ultrasound showed gallstone, and dilated common bile duct measuring 10 mm. Pancreas was not visualized due to bowel gas. Patient complained of chest pain on 05/08. EKG done at that time showed NSR and troponinsx2 were negative. As per physical therapy, patient should be home with services upon discharge. Patient is stable and ready for discharge. She should follow up with PCP, Dr. Moe, in 1 week. Patient should resume home medications and start new aspirin 81 daily. Patient was told to return to emergency department if symptoms return or worsened or new concerning symptoms arose. This is a summary of the events that occurred at the hospital. For complete series of events that took place, please refer to hospital documentation. - Date & Time of H&P Date of H&P: 05/09/18 Time of H&P: 16:46 Discharge Exam - Head Exam Head Exam: ATRAUMATIC, NORMAL INSPECTION, NORMOCEPHALIC - Eye Exam Eye Exam: EOMI, PERRL - Respiratory Exam Respiratory Exam: Clear to PA & Lateral - Cardiovascular Exam Cardiovascular Exam: REGULAR RHYTHM, RRR - GI/Abdominal Exam GI & Abdominal Exam: Normal Bowel Sounds - Extremities Exam Extremities exam: full ROM - Neurological Exam Neurological exam: Alert, CN II-XII Intact, Oriented x3 Discharge Plan - Discharge Medications Prescriptions: Aspirin [Ecotrin] 81 mg PO DAILY 30 Days #30 tabec - Follow Up Plan Condition: GUARDED Disposition: HOME/ ROUTINE Instructions: Stroke, Heart Healthy Diet, Lowering the Risk of Having Another Stroke, Clot Dissolving Drugs for Heart Attack or Stroke Additional Instructions: Please follow up with PCP in 1 week. Please resume home medications as prescribed and take new aspirin 81 mg daily. Please return to emergency department if symptoms return or worsen or new concerning symptoms arise. Thank you for allowing us to take care of you. 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 Core Measures Referral Routine Comment: tia Physician Instructions: Reason For Exam: eval Transition In Care/Readmission Reduction Routine Comment: tia Physician Instructions: Reason For Exam: eval 05/07/18 06:00 Physician Consult ROUTINE AM Comment: Consulting Provider: oRmain Fox Consulting Physician: Romain Fox Reason for Consult: L sided weakness w/ h/o CVA Hospital Course - Lab Results Lab Results: Most Recent Lab Values WBC 4.8 10^3/uL (4.5-11.0) 05/09/18 06:30 RBC 3.63 10^6/uL (3.5-6.1) 05/09/18 06:30 Hgb 11.1 g/dL (12.0-16.0) L 05/09/18 06:30 Hct 34.5 % (36.0-48.0) L 05/09/18 06:30 MCV 95.0 fl (80.0-105.0) 05/09/18 06:30 MCH 30.6 pg (25.0-35.0) 05/09/18 06:30 MCHC 32.2 g/dl (31.0-37.0) 05/09/18 06:30 RDW 14.5 % (11.5-14.5) 05/09/18 06:30 Plt Count 260 10^3/uL (120.0-450.0) 05/09/18 06:30 MPV 9.6 fl (7.0-11.0) 05/09/18 06:30 Gran % 34.1 % (50.0-68.0) L 05/09/18 06:30 Lymph % (Auto) 51.4 % (22.0-35.0) H 05/09/18 06:30 [place] % (Auto) 8.6 % (1.0-6.0) H 05/09/18 06:30 Eos % (Auto) 5.1 % (1.5-5.0) H 05/09/18 06:30 Baso % (Auto) 0.8 % (0.0-3.0) 05/09/18 06:30 Gran # 1.62 (1.4-6.5) 05/09/18 06:30 Lymph # (Auto) 2.4 (1.2-3.4) 05/09/18 06:30 [place] # (Auto) 0.4 (0.1-0.6) 05/09/18 06:30 Eos # (Auto) 0.2 (0.0-0.7) 05/09/18 06:30 Baso # (Auto) 0.04 K/mm3 (0.0-2.0) 05/09/18 06:30 PT 14.5 SECONDS (9.4-12.5) H 05/07/18 06:00 INR 1.26 05/07/18 06:00 APTT 32.0 Seconds (25.1-36.5) 05/07/18 06:00 Sodium 138 mmol/L (132-148) 05/09/18 06:30 Potassium 3.8 mmol/L (3.6-5.0) 05/09/18 06:30 Chloride 107 mmol/L (98-107) 05/09/18 06:30 Carbon Dioxide 25 mmol/L (21-33) 05/09/18 06:30 Anion Gap 9 (10-20) L 05/09/18 06:30 BUN 10 mg/dL (7-21) 05/09/18 06:30 Creatinine 0.7 mg/dl (0.7-1.2) 05/09/18 06:30 Est GFR ( Amer) > 60 12 06:30 Est GFR (Non-Af Amer) > 60 12 06:30 POC Glucose (mg/dL) 79 mg/dL (65-110) 05/09/18 12:03 Random Glucose 76 mg/dL (70-110) 05/09/18 06:30 Calcium 9.0 mg/dL (8.4-10.5) 05/09/18 06:30 Phosphorus 3.7 mg/dL (2.5-4.5) 05/07/18 06:00 Magnesium 2.0 mg/dL (1.7-2.2) 05/07/18 06:00 Total Bilirubin 0.5 mg/dL (0.2-1.3) 05/09/18 06:30 AST 42 U/L (14-36) H D 05/09/18 06:30 ALT 48 U/L (7-56) 05/09/18 06:30 Alkaline Phosphatase 131 U/L (38-126) H 05/09/18 06:30 Troponin I < 0.01 ng/mL 05/08/18 14:29 NT-Pro-B Natriuret Pep 160 pg/mL (0-450) 05/06/18 12:50 Total Protein 6.8 g/dL (5.8-8.3) 05/09/18 06:30 Albumin 3.5 g/dL (3.0-4.8) 05/09/18 06:30 Globulin 3.3 gm/dL 05/09/18 06:30 Albumin/Globulin Ratio 1.1 (1.1-1.8) 05/09/18 06:30 Triglycerides 82 mg/dL (35-160) 05/07/18 06:00 Cholesterol 154 mg/dL (130-200) 05/07/18 06:00 LDL Cholesterol Direct 77 mg/dL (0-129) 05/07/18 06:00 HDL Cholesterol 56 mg/dL (29-60) 05/07/18 06:00 Urine Opiates Screen Positive (NEGATIVE) H 05/07/18 16:17 Urine Methadone Screen Negative (NEGATIVE) 05/07/18 16:17 Ur Barbiturates Screen Negative (NEGATIVE) 05/07/18 16:17 Ur Phencyclidine Scrn Negative (NEGATIVE) 05/07/18 16:17 Ur Amphetamines Screen Negative (NEGATIVE) 05/07/18 16:17 U Benzodiazepines Scrn Negative (NEGATIVE) 05/07/18 16:17 U Oth Cocaine Metabols Negative (NEGATIVE) 05/07/18 16:17 U Cannabinoids Screen Negative (NEGATIVE) 05/07/18 16:17 Alcohol, Quantitative < 10 mg/dL (0-10) 05/06/18 18:00 Blood Type A POSITIVE 05/06/18 12:50 Antibody Screen Negative 05/06/18 12:50 BBK History Checked Patient has bt 05/06/18 12:50 Attending/Attestation - Attestation I have personally seen and examined this patient.: Yes I have fully participated in the care of the patient.: Yes I have reviewed all pertinent clinical information, including history, physical exam and plan: Yes Notes (Text): 05/09/18 18:03 62 year old female with past medical history of afib on eliquis, CVA, DVT s/p IVC filter, protein C deficiency, asthma, hypertension and warfarin induced necrosis who presented with complaint of trouble with speech and right sided weakness. CT head was negative for acute findings. CT H/N showed no definite occlusion or stenosis. MRI brain and echocardiogram with bubble study were negative as well. She was seen by neurology and PT who recommended home with home services. She is on aspirin but not on statin due to high LFTs and prior medication reaction per patient. She is on eliquis as well. She had elevated LFTs which improved. Abdominal ultrasound showed gallstone and CBD dilatation, also seen on last MRCP. She is tolerating diet without abdominal complaints. Recommended outpatient GI follow up. Patient is discharged home to follow up with pmd. Follow up with neurologist and GI. Nik Benz MD Hospitalist.
== END 2018-05-09 15:20 | disposition home or self-care (01) | DRG 92 ==
LOC: ED 11:45 → ERH 14:43 → 2RNO 05-07 02:19
PROVIDERS: ADMIT Internal Medicine; ATTEND Internal Medicine
DX: R47.1 Dysarthria and anarthria (principal); R53.1 Weakness; D68.59 Other primary thrombophilia; I10 Essential (primary) hypertension; I48.91 Unspecified atrial fibrillation; K80.20 Calculus of gallbladder without cholecystitis without obstruction; E78.5 Hyperlipidemia, unspecified; J45.909 Unspecified asthma, uncomplicated; Z23 Encounter for immunization; Z86.73 Personal history of transient ischemic attack (TIA), and cerebral infarction without residual deficits; Z79.01 Long term (current) use of anticoagulants; Z80.3 Family history of malignant neoplasm of breast; Z82.3 Family history of stroke

== ENCOUNTER 2018-05-13 11:44 | Inpatient (IN) | payer MEDICARE, OTHER ==
[2018-05-13 11:47] VITALS: BMI 33.6
[2018-05-13] MEDS ORDERED: Sodium Chloride 0.9% 1,000 ML IV SCH ×2 (12:15→13:45)
--- NOTE | 2018-05-13 12:17 | EDPD ---
HPI Stroke - General Time Seen by Provider: 05/13/18 11:52 Chief Complaint: Dizziness/Lightheaded Historian: Patient - History of Present Illness Narrative History of Present Illness (Free Text): 05/13/18 12:04 62 y/o F with a PMHx of Protein C deficiency, asthma, dyslipidemia, hypertension, atrial fibrillation(on Elquis), DVT with IVC filter, warfarin induced necrosis, presents to the Emergency department for evaluation of di fficulty finding words since 1 hour prior to arrival. Patient reports sudden onset of symptoms associated with mild confusion, prompting her friend to call Dr. Moe's office, who subsequently referred patient to the ED for medical evaluation. Pt also notes that her symptoms have also been ocurring over the past 2 days but got worse over the past 2 days. Patient reports multiple episodes of TIA and CVA in the past and states current symptoms are similar to her past episodes of TIA. Patient states compliance with her medications and reports taking her Aspirin and Eliquis this morning. Patient denies any other associated somatic complaints. No neck stiffness or fever. Patient denies any fevers, chills, headache, dizziness, vision changes, chest pain, shortness of breath, dyspnea on exertion, cough, abdominal pain, nausea, vomiting, diarrhea, back pain, neck pain, or any other complaints. PMD: Dr. Moe 05/13/18 13:44 Onset:: Hours Timing: Currently Symptomatic Context: Home Exacerbated by: Nothing Relieved by: Nothing - Location Location: Speech - Pain Assessment/Levels Maximum Severity: None rTPA Inclusion/Exclusion - Refusal of Treatment Patient Refused Treatment: No - Inclusion Criteria for Altepase Patient is 18 years or Older: Yes The Clinical Diagnosis of Ischemic Stroke That is Causing a Potentially Disabling Neurological Deficit: Yes Time of Onset is Well Established to be Less Than 270 Minute Before Treatment Wo uld Begin: Yes Risk/Benefit Discussed With Patient/Family Member Present: Yes Past Medical History - Provider Review Nursing Documentation Reviewed: Yes - Infectious Disease Hx of Infectious Diseases: None - Tetanus Immunization Tetanus Immunization: Unknown - Reproductive Menopause: Yes - Cardiac Hx Cardiac Disorders: Yes (afib) Hx Hypertension: Yes - Pulmonary Hx Respiratory Disorders: Yes Hx Asthma: Yes Hx Pneumonia: Yes - Neurological HX Cerebrovascular Accident: Yes - HEENT Hx HEENT Disorder: Yes Hx Blind: Yes Other/Comment: Tonsillectomy - Renal Hx Renal Failure: Yes - Endocrine/Metabolic Hx Endocrine Disorders: No - Hematological/Oncological Hx Blood Disorders: Yes Hx Blood Transfusions: Yes - Integumentary Hx Dermatological Disorder: No - Musculoskeletal/Rheumatological Hx Arthritis: Yes - Gastrointestinal Hx Gastrointestinal Disorders: Yes Hx Gall Bladder Disease: Yes Hx Gastroesophageal Reflux: Yes Other/Comment: Gastric Bypass Surgery. Appetite Changes. Weight Loss. - Genitourinary/Gynecological Hx Urinary Tract Infection: Yes - Psychiatric Hx Substance Use: No - Past Surgical History Past Surgical History: Non-Contributing - Surgical History Hx Amputation: Yes - Anesthesia Hx Anesthesia: Yes Hx Anesthesia Reactions: No Hx Malignant Hyperthermia: No - Suicidal Assessment Feels Threatened In Home Enviroment: No Family/Social History - Family/Social History Family History: Non-Contributory Allergies/Home Meds Allergies/Adverse Reactions: Allergies Penicillins Allergy (Verified 12/17/17 17:56) ANGIOEDEMA/SHORTNESS OF BREATH ANGIOEDEMA SHORTNESS OF BREATH levofloxacin Adverse Reaction (Verified 12/17/17 17:56) VOMITING Home Medications: Home Meds Medication Instructions Recorded Confirmed Apixaban [Eliquis] 5 mg PO BID 03/26/17 05/06/18 Gabapentin [Neurontin] 600 mg PO TID 03/26/17 05/06/18 Furosemide [Lasix] 40 mg PO DAILY 10/22/17 05/06/18 Pantoprazole Sodium [Protonix] 20 mg PO DAILY 10/22/17 05/06/18 Potassium Chloride [K-Dur 20 mEq 20 meq PO BID 10/22/17 05/06/18 ER Tab] Review of Systems - Physician Review All systems were reviewed & negative as marked: Yes - Review of Systems Constitutional: absent: Fevers Eyes: absent: Vision Changes Respiratory: absent: SOB, Cough Cardiovascular: absent: Chest Pain, FERNANDEZ Gastrointestinal: absent: Abdominal Pain, Diarrhea, Nausea, Vomiting Genitourinary Female: absent: Dysuria, Urine Output Changes Musculoskeletal: absent: Back Pain, Neck Pain Skin: absent: Rash Neurological: Speech Changes. absent: Headache, Dizziness, Focal Weakness, Gait Changes ED Stroke Physical Exam Vital Signs Reviewed: Yes Vital Signs Temp Pulse Resp BP Pulse Ox 05/13/18 11:49 97.9 F 84 18 140/89 99 Temperature: Afebrile Blood Pressure: Normal Pulse: Regular Respiratory Rate: Normal Appearance: Positive for: Well-Appearing, Non-Toxic, Comfortable Pain Distress: None Mental Status: Positive for: Alert and Oriented X 3 Finger Stick Blood Glucose: 69 - Systems Exam Head: Present: Atraumatic, Normocephalic Pupils: Present: PERRL Extroacular Muscles: Present: EOMI Conjunctiva: Present: Normal Ears: Present: Normal, NORMAL TM. No: Erythema Mouth: Present: Moist Mucous Membranes Pharnyx: Present: Normal. No: ERYTHEMA, EXUDATE Neck: Present: Normal Range of Motion. No: Meningeal Signs, JVD Respiratory/Chest: Present: Clear to Auscultation, Good Air Exchange. No: Respiratory Distress, Accessory Muscle Use Cardiovascular: Present: Regular Rate and Rhythm, Normal S1, S2. No: Murmurs Abdomen: Present: Normal Bowel Sounds. No: Tenderness, Distention, Peritoneal Signs Genitourinary/Pelvic Exam: Present: NI. No: C, E Back: Present: Normal Inspection. No: CVA Tenderness, Midline Tenderness Upper Extremity: Present: Normal Inspection, NORMAL PULSES, Neurovascularly Intact, Other (5/5 strength in bilateral upper extremity). No: Cyanosis, Edema Lower Extremity: Present: Normal Inspection, NORMAL PULSES, Neurovascularly Intact, Other (chronic 2/5 strength to right LE, 5/5 strenght to left LE). No: Edema Neurologic: Present: GCS=15, CN II-XII Intact, Motor Func Grossly Intact, Normal Sensory Function, Normal Cerebellar Funct, Gait Normal, Memory Normal. No: Speech Normal ( mild difficulty finding words.), Pronator Drift, Facial Droop Skin: Present: Warm, Dry, Normal Color. No: Rashes Lymphatic: Present: OX3, NI, NC Psychiatric: Present: Alert, Oriented x 3, Normal Insight, Normal Concentration Medical Decision Making ED Course and Treatment: 05/13/18 12:04 Impression: 62 year old female presents to the ED for evaluation of difficulty finding words since 1 hour prior to arrival. Differential Diagnosis included but are not limited to: TIA vs. CVA On neuro exam: MAEW. NAD, VS unremarkable. NIHSS: 1 from baseline. Previously on Eliquis, took it today per pt with her ASA 81mg. Given blood thinner, NIHSS 1: no indication for TPA. Plan: -- Labs -- CT of Head -- EKG -- Chest X-ray -- IV Fluids -- Reassess and disposition Prior Visits: Notes and results from previous visits were reviewed. Progress Notes: 05/13/18 12:04 CODE STROKE ACTIVATED. 05/13/18 13:00 CT of head reviewed by radiologist, shows: IMPRESSION: No acute intracranial abnormality. If there is a persistent focal neurologic deficit and an ongoing clinical concern for acute infarction, an MRI of the brain without intravenous contrast would be a more sensitive modality for evaluation of hyperacute/acute ischemic infarction. Mild chronic microangiopathic changes and mild age-related global parenchymal volume loss 05/13/18 13:31 EK, NSR, NO STEMI Ct unremarkable NIHSS: 1 05/13/18 13:39 appreciate consul w/ Dr. Cárdenas. MRI, no indication for TPA given NIHSS and already on eliquis pt in NAD, GCS15, MAEW, neuro exam remains largely unremarkable despite some mild word finding difficulty. Paged medicine simulation technician for admission. 05/13/18 14:00 Chest X-ray reviewed by radiologist, shows no active disease. - RAD Interpretation Radiology Orders: 05/13/18 12:04 HEAD W/O (CODE STROKE) [CT] Stat CHEST PORTABLE [RAD] Stat Shoe Lacer: Radiologist - Medication Orders Current Medication Orders: Sodium Chloride (Sodium Chloride 0.9%) 1,000 mls @ 100 mls/hr IV .Q10H ALEXI NIHSS Scale(Taylor) 2 Time Performed: 12:04 - How Severe is the Stoke Baseline Level of Consciousness: 0=Alert LOC to Questions: 0=Both comments correct LOC to commands: 0=Obeys both correctly Best Gaze: 0=Normal Visual: 0=No visual loss Facial: 0=Normal Motor Arm - Left: 0=No drift Motor Arm - Right: 0=No drift Motor Leg - Left: 0=No drift Motor Leg - Right: 1=Drift before 5 sec Limb Ataxia: 0=Absent Sensory: 0=Normal Best Language: 1=Mild to moderate aphasia Dysarthia: 0=Normal articulation Extinction & Inattention (Neglect): 0=Normal, no object (RLE weakness is chronic, no worse from baseline per pt: NIHSS adjusted: 1) Score: 2 Risk Level: Minor Stroke Risk - Scribe Statement The provider has reviewed the documentation as recorded by the Scribe Garett Metz. All medical record entries made by the Scribe were at my direction and personally dictated by me. I have reviewed the chart and agree that the record accurately reflects my personal performance of the history, physical exam, medical decision making, and the department course for this patient. I have also personally directed, reviewed, and agree with the discharge instructions and disposition. NIHSS Scale (Taylor) Time Performed: 12:04 - How Severe is the Stoke Baseline Level of Consciousness: 0=Alert LOC to Questions: 0=Both comments correct LOC to commands: 0=Obeys both correctly Best Gaze: 0=Normal Visual: 0=No visual loss Facial: 0=Normal Motor Arm - Left: 0=No drift Motor Arm - Right: 0=No drift Motor Leg - Left: 0=No drift Motor Leg - Right: 1=Drift before 5 sec Limb Ataxia: 0=Absent Sensory: 0=Normal Best Language: 1=Mild to moderate aphasia Dysarthia: 0=Normal articulation Extinction & Inattention (Neglect): 0=Normal, no object (2) Score: 2 Risk Level: Minor Stroke Risk Disposition/Present on Arrival - Present on Arrival Any Indicators Present on Arrival: No History of DVT/PE: No History of Uncontrolled Diabetes: No Urinary Catheter: No History of Decub. Ulcer: No History Surgical Site Infection Following: None - Disposition Have Diagnosis and Disposition been Completed?: Yes Diagnosis: Stroke-like symptom Disposition Time: 13:39 Patient Problems: Current Active Problems Problem Status Onset Stroke-like symptom Acute Condition: GOOD
--- NOTE | 2018-05-13 12:25 | CT ---
Date of service: 05/13/2018 PROCEDURE: CT HEAD WITHOUT CONTRAST. HISTORY: Code Stroke COMPARISON: 05/06/2018. TECHNIQUE: Axial computed tomography images were obtained through the head/brain without intravenous contrast. Radiation dose: Total exam DLP = 917.27 mGy-cm. This CT exam was performed using one or more of the following dose reduction techniques: Automated exposure control, adjustment of the mA and/or kV according to patient size, and/or use of iterative reconstruction technique. FINDINGS: HEMORRHAGE: No intracranial hemorrhage. BRAIN: There are mild chronic microangiopathic changes. There is no mass, mass effect or abnormal extra-axial fluid collection. There is no territorial infarction. The midline sagittal structures are normal. VENTRICLES: There is mild age-related global parenchymal volume loss and proportionate enlargement of the ventricles and cortical sulci. CALVARIUM: There is no calvarial fracture or extracranial soft tissue swelling. PARANASAL SINUSES: Predominantly clear. MASTOID AIR CELLS: Predominantly clear. OTHER FINDINGS: None. IMPRESSION: No acute intracranial abnormality. If there is a persistent focal neurologic deficit and an ongoing clinical concern for acute infarction, an MRI of the brain without intravenous contrast would be a more sensitive modality for evaluation of hyperacute/acute ischemic infarction. Mild chronic microangiopathic changes and mild age-related global parenchymal volume loss
[2018-05-13 13:10] LABS: BASO # 0.03 K/mm3 (0.0-2.0); BASO % 0.5 % (0.0-3.0); EOS # 0.2 (0.0-0.7); EOS % 3.2 % (1.5-5.0); GRAN # 3.21 (1.4-6.5); GRAN % 51.9 % (50.0-68.0); LYMPH # 1.9 (1.2-3.4); LYMPH % 30.3 % (22.0-35.0); MEAN CELL VOLUME 95.2 fl (80.0-105.0); MEAN CORPUSCULAR HEMOGLOBIN 30.6 pg (25.0-35.0); MEAN CORPUSCULAR HGB CONC 32.2 g/dl (31.0-37.0); MEAN PLATELET VOLUME 9.6 fl (7.0-11.0); MONO # 0.9 (0.1-0.6); MONO % 14.1 % (1.0-6.0); RBC 3.92 10^6/uL (3.5-6.1); RED CELL DISTRIBUTION WIDTH 14.5 % (11.5-14.5); WHITE BLOOD COUNT 6.2 10^3/uL (4.5-11.0)
[2018-05-13 13:14] LABS: INR 1.16; PARTIAL THROMBOPLASTIN TIME 34.5 Seconds (25.1-36.5); PROTHROMBIN TIME 13.4 SECONDS (9.4-12.5)
[2018-05-13 13:26] LABS: LDL CHOLESTEROL 75 mg/dL (0-129); TROPONIN I < 0.01 ng/mL
[2018-05-13 13:51] LABS: ALB/GLOB RATIO 1.1 (1.1-1.8); ALBUMIN 4.2 g/dL (3.0-4.8); ALT/SGPT 59 U/L (7-56); AST/SGOT 88 U/L (14-36); BLOOD UREA NITROGEN 16 mg/dL (7-21); CALCIUM 9.6 mg/dL (8.4-10.5); GFR NON-AFRICAN AMERICAN 45; HDL CHOLESTEROL 80 mg/dL (29-60)
--- NOTE | 2018-05-13 14:04 | RAD ---
Date of service: 05/13/2018 HISTORY: Code Stroke COMPARISON: 05/06/2018 FINDINGS: LUNGS: The lungs are well inflated and clear. PLEURA: No pleural effusions or pneumothorax. CARDIOVASCULAR: The heart is normal in size. No aortic atherosclerotic calcification present. OSSEOUS STRUCTURES: Within normal limits for the patient's age. VISUALIZED UPPER ABDOMEN: Normal. OTHER FINDINGS: None. IMPRESSION: No active pulmonary disease.
[2018-05-13 15:24] LABS: PH,URINE 6.5 (4.7-8.0); URINE APPEARANCE CLEAR (CLEAR); URINE BILIRUBIN NEGATIVE (NEGATIVE); URINE BLOOD NEGATIVE (NEGATIVE); URINE COLOR LIGHT YELLOW (YELLOW); URINE GLUCOSE (UA) NEGATIVE (NEGATIVE); URINE LEUKOCYTE ESTERASE NEGATIVE Leu/uL (NEGATIVE); URINE PROTEIN NEGATIVE mg/dL (<30 mg/dL); URINE UROBILINOGEN 0.2 E.U./dL (<1 E.U./dL)
--- NOTE | 2018-05-13 16:43 | MRI ---
Date of service: 05/13/2018 PROCEDURE: MRI BRAIN WITHOUT CONTRAST HISTORY: stroke like symptoms COMPARISON: Noncontrast head CT from 05/13/2018. TECHNIQUE: Multiplanar, multisequence MR images of the brain were obtained without intravenous contrast enhancement. FINDINGS: HEMORRHAGE: None DWI: No evidence of an acute or early subacute infarction. BRAIN PARENCHYMA: There are mild chronic microangiopathic changes. There is no mass, mass effect or abnormal extra-axial fluid collection. There is no territorial infarction. There is an enlarged partially empty sella. VENTRICLES: There is mild age-related global parenchymal volume loss and proportionate enlargement of the ventricles and cortical sulci. CRANIUM: There is a bone island in the right frontal calvarium. Otherwise, bone marrow signal is within normal limits. There is mild hyperostosis frontalis interna. ORBITS: Grossly unremarkable. PARANASAL SINUSES/MASTOIDS: Predominantly clear. VASCULAR SYSTEM: There are normal signal voids in the larger intracranial arteries. OTHER FINDINGS: None. IMPRESSION: No acute intracranial abnormality. Mild age-related global parenchymal volume loss.
--- NOTE | 2018-05-13 21:42 | CARD ---
APPROVED REPORT Date of service: 05/13/2018 EKG Measurement Heart [id number] <Conclusion> Normal sinus rhythm Normal ECG
[2018-05-13] MEDS ORDERED: Pneumococcal 23-Valent Vaccine IM ONE (22:49)
[2018-05-13] MEDS ORDERED: Influenza Vaccine 60 mcg/0.5 mL SYR (4YR UP) IM ONE (22:49)
[2018-05-14] MEDS: oxyCODONE 20 mg Immediate Release Tab PO PRN ×2 (09:26→18:50)
[2018-05-14] MEDS: Potassium Chloride 20 mEq ER Tab PO SCH ×2 (09:28→18:41)
[2018-05-14] MEDS: Pantoprazole 20 mg EC Tab PO SCH (09:31)
--- NOTE | 2018-05-14 09:41 | CP.PCM.CON ---
<Shlomo Thomas - Last Filed: 05/14/18 13:36> History of Present Illness - History of Present Illness History of Present Illness: Neurology Consult Note for Dr. Cárdenas Reason for Consultation: code stroke Patient is a 62 yo F with PMH of protein C deficiency, asthma, dyslipidemia, hypertension, atrial fibrillation, DVT with IVC filter and eliquis, previous CVA, warfarin induced necrosis, and fibroids presents to [facility] [place] for a 2 day history of confusion that was noticed by her visiting nurse. Patient states that she was having difficulty finding her words prior to arrival. Patient was instructed to proceed to the ED for evaluation by her PMD. In the ED, code stroke was called. NIHSS was 2. tPA was not indicated. Currently, patient denies fevers, chills, headache, dizziness, vision changes, chest pain, shortness of breath, dyspnea on exertion, cough, abdominal pain, nausea, vomiting, diarrhea, back pain, neck pain, or any other complaints. 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, hysteretomy, gastric bypass, tonsillectomy FMHx: Mother: from breast cancer, CVA; Father: from unknown cancer Social History: never smoker, drinker, or recreational rug use Allergies: penicillin, levofloaxicin Review of Systems - Review of Systems All systems: reviewed and no additional remarkable complaints except (12 point ROS reviewed and is negative other than what is stated on HPI.) Past Patient History - Infectious Disease Hx of Infectious Diseases: None - Tetanus Immunizations Tetanus Immunization: Unknown - Past Medical History & Family History Past Medical History?: Yes - Past Social History Smoking Status: Never Smoked - CARDIAC Hx Cardiac Disorders: Yes (afib) Hx Hypertension: Yes - PULMONARY Hx Respiratory Disorders: Yes Hx Asthma: Yes Hx Pneumonia: Yes - NEUROLOGICAL Hx Neurological Disorder: Yes HX Cerebrovascular Accident: Yes - HEENT Hx HEENT Problems: Yes Hx Blind: Yes Other/Comment: Tonsillectomy - RENAL Hx Renal Failure: Yes - ENDOCRINE/METABOLIC Hx Endocrine Disorders: No - HEMATOLOGICAL/ONCOLOGICAL Hx Blood Disorders: Yes - INTEGUMENTARY Hx Dermatological Problems: No - MUSCULOSKELETAL/RHEUMATOLOGICAL Hx Musculoskeletal Disorders: Yes Hx Arthritis: Yes Hx Falls: Yes - GASTROINTESTINAL Hx Gastrointestinal Disorders: Yes Hx Gall Bladder Disease: Yes Hx Gastroesophageal Reflux: Yes Other/Comment: Gastric Bypass Surgery. Appetite Changes. Weight Loss. - GENITOURINARY/GYNECOLOGICAL Hx Genitourinary Disorders: Yes Hx Urinary Tract Infection: Yes - PSYCHIATRIC Hx Psychophysiologic Disorder: No Hx Anxiety: No Hx Bipolar Disorder: No Hx Depression: No Hx Emotional Abuse: No Hx Hallucinations: No Hx Panic Symptoms: No Hx Post Traumatic Stress Disorder: No Hx Psychosis: No Hx Physical Abuse: No Hx Schizophrenia: No Hx Sexual Abuse: No Hx Substance Use: No - SURGICAL HISTORY Hx Surgeries: Yes (TONSILLECTOMY) Hx Amputation: Yes Hx Gastric Bypass Surgery: Yes Hx Hysterectomy: Yes - ANESTHESIA Hx Anesthesia: Yes Hx Anesthesia Reactions: No Hx Malignant Hyperthermia: No Meds Allergies/Adverse Reactions: Allergies Allergy/AdvReac Type Severity Reaction Status Date / Time Penicillins Allergy ANGIOEDEMA/SHORTNESS Verified 05/13/18 18:43 OF BREATH levofloxacin AdvReac VOMITING Verified 05/13/18 18:43 - Medications Medications: Current Medications Apixaban (Eliquis) 5 mg PO BID [facility]; Protocol Last Admin: 05/14/18 09:26 Dose: 5 mg Aspirin (Ecotrin) 81 mg PO DAILY [facility] Last Admin: 05/14/18 09:28 Dose: 81 mg Cyclobenzaprine HCl (Flexeril) 10 mg PO TID [facility] Last Admin: 05/14/18 09:28 Dose: 10 mg Furosemide (Lasix) 20 mg PO DAILY [facility] Last Admin: 05/14/18 09:29 Dose: 20 mg Gabapentin (Neurontin) 600 mg PO TID [facility]; Protocol Last Admin: 05/14/18 09:28 Dose: 600 mg Metoprolol Tartrate (Lopressor) 25 mg PO BID [facility] Last Admin: 05/14/18 09:29 Dose: 25 mg Oxycodone HCl (Oxycodone Immediate Release Tab) 20 mg PO Q6H PRN PRN Reason: Pain, severe (8-10) Last Admin: 05/14/18 09:26 Dose: 20 mg Pantoprazole Sodium (Protonix Ec Tab) 20 mg PO DAILY [facility] Last Admin: 05/14/18 09:31 Dose: 20 mg Potassium Chloride (K-Dur 20 Meq Er Tab) 20 meq PO BID [facility] Last Admin: 05/14/18 09:28 Dose: 20 meq Zolpidem Tartrate (Ambien) 5 mg PO HS PRN PRN Reason: Insomnia Physical Exam - Constitutional Appears: No Acute Distress - Head Exam Head Exam: NORMAL INSPECTION - Eye Exam Eye Exam: Normal appearance - ENT Exam ENT Exam: Mucous Membranes Moist, Normal Exam - Neck Exam Neck exam: Positive for: Normal Inspection - Respiratory Exam Respiratory Exam: Clear to Auscultation Bilateral, NORMAL BREATHING PATTERN. absent: Rales, Rhonchi, Wheezes - Cardiovascular Exam Cardiovascular Exam: REGULAR RHYTHM - GI/Abdominal Exam GI & Abdominal Exam: Normal Bowel Sounds, Soft - Extremities Exam Extremities exam: Positive for: normal inspection - Back Exam Back exam: NORMAL INSPECTION - Neurological Exam Neurological exam: Alert, CN II-XII Intact, Oriented x3 - Psychiatric Exam Psychiatric exam: Normal Affect, Normal Mood - Skin Skin Exam: Normal Color, Warm Results - Vital Signs Recent Vital Signs: Last Vital Signs Temp 98.3 F 05/14/18 05:45 Pulse 88 05/14/18 09:29 Resp 18 05/14/18 05:45 BP 122/82 05/14/18 09:29 Pulse Ox 99 05/14/18 05:45 - Labs Result Diagrams: 05/13/18 12:50 05/13/18 12:50 Labs: Laboratory Results - last 24 hr 05/13/18 05/13/18 05/13/18 12:50 12:50 12:50 WBC 6.2 D RBC 3.92 Hgb 12.0 Hct 37.3 MCV 95.2 MCH 30.6 MCHC 32.2 RDW 14.5 Plt Count 270 MPV 9.6 Gran % 51.9 Lymph % (Auto) 30.3 [place] % (Auto) 14.1 H Eos % (Auto) 3.2 Baso % (Auto) 0.5 Gran # 3.21 Lymph # (Auto) 1.9 [place] # (Auto) 0.9 H Eos # (Auto) 0.2 Baso # (Auto) 0.03 PT 13.4 H INR 1.16 APTT 34.5 Sodium 141 Potassium 3.8 Chloride 102 Carbon Dioxide 32 Anion Gap 11 BUN 16 Creatinine 1.2 Est GFR ( Amer) 55 Est GFR (Non-Af Amer) 45 POC Glucose (mg/dL) Random Glucose 80 Hemoglobin A1c Calcium 9.6 Total Bilirubin 0.4 AST 88 H D ALT 59 H Alkaline Phosphatase 148 H Troponin I < 0.01 NT-Pro-B Natriuret Pep Total Protein 8.1 Albumin 4.2 Globulin 3.9 Albumin/Globulin Ratio 1.1 Triglycerides 62 Cholesterol 180 LDL Cholesterol Direct 75 HDL Cholesterol 80 H Urine Color Urine Appearance Urine pH Ur Specific [place] Urine Protein Urine Glucose (UA) Urine Ketones Urine Blood Urine Nitrate Urine Bilirubin Urine Urobilinogen Ur Leukocyte Esterase Blood Type Antibody Screen BBK History Checked 05/13/18 05/13/18 05/13/18 12:50 12:50 13:36 WBC RBC Hgb Hct MCV MCH MCHC RDW Plt Count MPV Gran % Lymph % (Auto) [place] % (Auto) Eos % (Auto) Baso % (Auto) Gran # Lymph # (Auto) [place] # (Auto) Eos # (Auto) Baso # (Auto) PT INR APTT Sodium Potassium Chloride Carbon Dioxide Anion Gap BUN Creatinine Est GFR ( Amer) Est GFR (Non-Af Amer) POC Glucose (mg/dL) Random Glucose Hemoglobin A1c 4.9 Calcium Total Bilirubin AST ALT Alkaline Phosphatase Troponin I NT-Pro-B Natriuret Pep 107 Total Protein Albumin Globulin Albumin/Globulin Ratio Triglycerides Cholesterol LDL Cholesterol Direct HDL Cholesterol Urine Color Urine Appearance Urine pH Ur Specific [place] Urine Protein Urine Glucose (UA) Urine Ketones Urine Blood Urine Nitrate Urine Bilirubin Urine Urobilinogen Ur Leukocyte Esterase Blood Type A POSITIVE Antibody Screen Negative BBK History Checked Patient has bt 05/13/18 05/13/18 05/14/18 15:10 22:51 07:23 WBC RBC Hgb Hct MCV MCH MCHC RDW Plt Count MPV Gran % Lymph % (Auto) [place] % (Auto) Eos % (Auto) Baso % (Auto) Gran # Lymph # (Auto) [place] # (Auto) Eos # (Auto) Baso # (Auto) PT INR APTT Sodium Potassium Chloride Carbon Dioxide Anion Gap BUN Creatinine Est GFR ( Amer) Est GFR (Non-Af Amer) POC Glucose (mg/dL) 96 79 Random Glucose Hemoglobin A1c Calcium Total Bilirubin AST ALT Alkaline Phosphatase Troponin I NT-Pro-B Natriuret Pep Total Protein Albumin Globulin Albumin/Globulin Ratio Triglycerides Cholesterol LDL Cholesterol Direct HDL Cholesterol Urine Color Light yellow Urine Appearance Clear Urine pH 6.5 Ur Specific [place] 1.010 Urine Protein Negative Urine Glucose (UA) Negative Urine Ketones Negative Urine Blood Negative Urine Nitrate Negative Urine Bilirubin Negative Urine Urobilinogen 0.2 Ur Leukocyte Esterase Negative Blood Type Antibody Screen BBK History Checked Assessment & Plan - Assessment and Plan (Free Text) Assessment: 62 yo F with PMH of protein C deficiency, asthma, HLD, HTN, atrial fibrillation, DVT, CVA, fibroids, and warfarin necrosis presents to [facility] [place] with confusion. Neurology consulted to r/o CVA vs TIA. Plan: - Cont Eliquis and ASA - CT head negative - MRI brain negative - Will order EEG, r/o seizure as cause of her memory deficits Patient seen and discussed with in detail with Dr. Cárdenas. Ted Thomas, DO PGY2 <Sushant Cárdenas - Last Filed: 05/16/18 13:51> Meds - Medications Medications: Current Medications Apixaban (Eliquis) 5 mg PO BID [facility]; Protocol Last Admin: 05/16/18 09:04 Dose: 5 mg Aspirin (Ecotrin) 81 mg PO DAILY [facility] Last Admin: 05/16/18 09:04 Dose: 81 mg Atorvastatin Calcium (Lipitor) 10 mg PO DIN [facility] Last Admin: 05/15/18 18:01 Dose: 10 mg Cyclobenzaprine HCl (Flexeril) 10 mg PO TID [facility] Last Admin: 05/16/18 13:18 Dose: 10 mg Furosemide (Lasix) 20 mg PO DAILY [facility] Last Admin: 05/16/18 09:04 Dose: 20 mg Gabapentin (Neurontin) 600 mg PO TID [facility]; Protocol Last Admin: 05/16/18 13:18 Dose: 600 mg Metoprolol Tartrate (Lopressor) 25 mg PO BID [facility] Last Admin: 05/16/18 09:03 Dose: 25 mg Oxycodone HCl (Oxycodone Immediate Release Tab) 20 mg PO Q6H PRN PRN Reason: Pain, severe (8-10) Last Admin: 05/16/18 08:16 Dose: 20 mg Pantoprazole Sodium (Protonix Ec Tab) 20 mg PO DAILY [facility] Last Admin: 05/16/18 09:04 Dose: 20 mg Potassium Chloride (K-Dur 20 Meq Er Tab) 20 meq PO BID [facility] Last Admin: 05/16/18 09:04 Dose: 20 meq Zolpidem Tartrate (Ambien) 5 mg PO HS PRN PRN Reason: Insomnia Results - Vital Signs Recent Vital Signs: Last Vital Signs Temp 98.5 F 05/16/18 12:00 Pulse 67 05/16/18 12:00 Resp 18 05/16/18 12:00 BP 110/65 05/16/18 12:00 Pulse Ox 97 05/16/18 09:05 - Labs Result Diagrams: 05/13/18 12:50 05/13/18 12:50 Labs: Laboratory Results - last 24 hr 05/15/18 05/16/18 05/16/18 16:27 06:30 07:23 POC Glucose (mg/dL) 73 83 Triglycerides 88 Cholesterol 140 LDL Cholesterol Direct 70 HDL Cholesterol 50 Attending/Attestation - Attestation I have personally seen and examined this patient.: Yes I have fully participated in the care of the patient.: Yes I have reviewed all pertinent clinical information: Yes Notes (Text): 05/16/18 13:50 I agree with the assessment and plan. The patient was referred to us by Dr. Mabry. No stroke on MRI. Episodes could be consistent with seizure. Will evaluate with EEG. Than you. 05/16/18 13:51
--- NOTE | 2018-05-14 19:07 | HP ---
DATE OF EXAM: 05/13/2018 MAIN REASON FOR ADMISSION: Left-sided weakness. HISTORY OF PRESENT ILLNESS: This is a 62-year-old female with history of recurrent stroke, AFib, history of hypercoagulable state, on Eliquis 5 mg b.i.d., seen recently in the emergency room for weakness, at this time came in with left-sided weakness that seems better, but she had some dysphagia or expressive aphasia according to the ER physicians. She has no nausea, no vomiting, no headache, no fever, no chills, and no other complaints. PAST MEDICAL HISTORY: As I mentioned, she does have chronic neck pain and for that she takes oxycodone. She has recurrent history of stroke, history of hypertension, and she also has a history of leg edema. ALLERGIES: PENICILLIN AND LEVOFLOXACIN. MEDICATIONS: Currently, the patient takes Ambien 5 mg at night, aspirin 81 mg, Eliquis 5 mg b.i.d., Flexeril 10 mg t.i.d., K-Dur 20 mEq p.o. b.i.d., Lasix 20 p.o. daily, Lopressor 25 b.i.d., Neurontin 600 t.i.d., oxycodone immediate release 30 mg p.o. every 6 hours, and Protonix 20 daily. REVIEW OF SYSTEMS: Shows complaint of weakness. She uses a cane and she lives by herself. She has chronic neck pain, arthritis, otherwise negative. PHYSICAL EXAMINATION: GENERAL: The patient is in the ER, she is comfortable, no distress, and she is able to talk. VITAL SIGNS: She is afebrile, temperature 97.9, heart rate 84, blood pressure 140/89, respirations 18, and saturation 99% on room air. HEAD AND NECK: Normal. No JVD. No thyromegaly. CHEST: Clear bilaterally. CARDIAC: First sound and second sound normal. ABDOMEN: Soft, obese, and nontender. EXTREMITIES: No edema. NEUROLOGIC: The patient seems moving all extremities and she is able to talk. Her baseline is unclear. LABORATORY DATA: The patient came in, she has white count 6.2, hemoglobin 12, hematocrit 37.3, and platelets 270. Chemistry; sodium 141, potassium 3.8, chloride 102, bicarb 32, BUN 16, and creatinine 1.2. Liver function test noted for AST 88, ALT 59, and alk phos 148. The patient also had cholesterol 180, LDL 75, and HDL 80. She also has hemoglobin A1c of 4.9. The patient has urinalysis, which is negative. The patient also has CT of the head, which was done in the emergency room and it showed no acute intracranial abnormality. There is persistent focal neurologic deficits clinical concern for acute infarction as MRI of the brain without would be more sensitive modality for evaluation. There is microangiopathic changes, mild age-related global parenchymal volume loss. The patient is also in the emergency room and has been discussed with Dr. Cárdenas and recommend an MRI of the brain, which shows mild age-related global parenchymal volume loss. No acute intracranial abnormalities. EKG, regular sinus rhythm. A chest x-ray, no active pulmonary disease. IMPRESSION AND PLAN: This is a 62-year-old female with history of recurrent strokes in the past, history of left-sided weakness that resolved, came in with expressive aphasia that seems mild stroke, unclear etiology for her neurologic deficits. CT shows prior disease of normal signals and MRI shows negative focal deficits. We will admit for observations. We will get Dr. Cárdenas for Neurology consult and we also going to resume all her medications including Eliquis, aspirin and her pain medications. Continue current therapy. We will follow up clinically. Moises Mabry MD
[2018-05-15] MEDS: oxyCODONE 20 mg Immediate Release Tab PO PRN ×2 (03:20→13:06)
[2018-05-15] MEDS: Potassium Chloride 20 mEq ER Tab PO SCH ×2 (10:15→18:02)
[2018-05-15] MEDS: Pantoprazole 20 mg EC Tab PO SCH (10:15)
[2018-05-16] MEDS: oxyCODONE 20 mg Immediate Release Tab PO PRN ×2 (00:22→08:16)
[2018-05-16 07:44] LABS: HDL CHOLESTEROL 50 mg/dL (29-60)
[2018-05-16 07:55] LABS: LDL CHOLESTEROL 70 mg/dL (0-129)
[2018-05-16] MEDS: Pantoprazole 20 mg EC Tab PO SCH (09:04)
[2018-05-16] MEDS: Potassium Chloride 20 mEq ER Tab PO SCH (09:04)
[2018-05-16 09:10] VITALS: RESP 18; O2SAT 97
[2018-05-16 12:41] VITALS: BP 110/65; PULSE 67; TEMP 98.5
--- NOTE | 2018-05-16 19:16 | PN ---
DATE: 05/15/2018 SUBJECTIVE: The patient is feeling better. No chest pain. No weakness. She speaks very well. She has mild right-sided feeling weak. She use a walker and she has a physical therapy at home. She has no chest pain. No short of breath. Feeling okay. PHYSICAL EXAMINATION: VITAL SIGNS: On 05/15/2018; temperature 97.4, heart rate 69, blood pressure 102/74, and respirations 18. HEAD AND NECK: Normal. No JVD. No thyromegaly. CHEST: Clear bilaterally. CARDIAC: First sound and second sound normal. ABDOMEN: Soft, obese, and nontender. EXTREMITIES: No edema. NEUROLOGIC: Normal. She moves all extremities. She does feel right-sided weakness. LABORATORY DATA: Noted for blood sugar in less than a 100. MEDICATIONS: She takes Ambien 5 mg at night, Ecotrin 81 mg, Eliquis 5 mg b.i.d., Flexeril 10 mg t.i.d., K-Dur 20 b.i.d., potassium 20 mEq p.o. daily, Lipitor 10, Lopressor 25 b.i.d., and Neurontin 600 t.i.d. She is also on oxycodone 20 p.o. every 6 hours and Protonix 20 p.o. daily. IMPRESSION AND PLAN: 1. Acute cerebrovascular accident probably some sort of expressive aphasia; however, the patient is clinically resolved, her condition improved. She has no any new residual deficits. She does complain of right-sided weakness, which is an old according to her stroke. Her MRI of the brain shows no acute events. 2. Hypertension; continue metoprolol 25 mg b.i.d. 3. History of chronic back pain and osteoarthritis, continue oxycodone. 4. 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 At this time, we will continue current medications. We will get a visit nurse to see her and we will get management. I will see her in a week. The patient will be discharged in the morning and she will make family arrangements. She lives by herself and we will followup in a week. Moises Mabry MD
--- NOTE | 2018-05-17 10:22 | PN ---
DATE: 05/14/2018 SUBJECTIVE: The patient is comfortable. No new complaint. No chest pain. No shortness of breath. Able to talk. Able to eat. Afebrile. PHYSICAL EXAMINATION VITAL SIGNS: Temperature 98.7, heart rate 78, blood pressure 118/69, respirations 19. HEAD AND NECK: Normal. No JVD. No thyromegaly. CHEST: Clear bilaterally. CARDIAC: First and second sounds normal. ABDOMEN: Soft, obese, nontender. EXTREMITIES: There is no edema. It is noted that multiple toes are removed from the extremity including the hands and also noted bilateral mastectomy scar. LABORATORY DATA: White count 6.2, hemoglobin 12, hematocrit 37, platelets 270. Chemistry noted for blood sugar was in the 90s. She also had triglycerides 88, cholesterol 140 which is very good, LDL 70 and HDL 50. IMPRESSION AND PLAN: 1. Possible acute cerebrovascular accident. Seems doing well. Continue current therapy. Seen by neurologist. Continue aspirin. Continue Eliquis. 2. Hypertension. Continue current medications. The patient is getting Lopressor, metoprolol 25 b.i.d. She is also getting Lipitor, Lasix and potassium. 3. Chronic back pain and osteoarthritis. She does have a pain management doctor who reduced her pain medication to 20 mg every 6 hours. 4. History of Coumadin-induced soft tissue necrosis, bilateral toes. The patient is allergic and should not be on Coumadin at all. 5. Obesity. The patient needs to lose weight. Her body mass index is 33.6. We will see the patient in the office within a week. Continue current therapy. Follow up clinically. Moises Mabry MD
--- NOTE | 2018-05-17 12:46 | PCM.EEG ---
Electroencephalogram Report - Electroencephalogram Report Procedure Date: 05/14/18 Medication: Oxycodone, Gabapentin, Eliquis, ASA, metropolol. Interpretation: Technical Information: This was a 16 -channel EEG, 1-channel EKG routine EEG performed using an [employer] machine. Electrodes were applied using the 10/20 international placement system. Start 16;17 End; 17;02 Total 58 min. Clinical Information: 62 y/o woman with episodes of alteration of awareness. During resting wakefulness there was a symmetric posterior dominant rhythm at 8.5-9.5 Hz, 30-50 uV, which was reactive to eye opening and closing. Drowsiness seen at 16;40 was associated with fragmentation of the posterior dominant rhythm and with slow roving eye movements. There was intermittent bitemporal slowing left more than right at 4 to5 Hz. Hyperventilation was not performed. Photic stimulation was performed and there were no changes on the record. Focal abnormality; none ECG was associated with a normal sinus rhythm. Impression: This is a normal awake and drowsy electroencephalogram.
== END 2018-05-16 15:35 | disposition home or self-care (01) | DRG 65 ==
LOC: ED 11:44 → ERH 14:06 → 2RNO 20:38
PROVIDERS: ADMIT Internal Medicine; ATTEND Internal Medicine
DX: I63.9 Cerebral infarction, unspecified (principal); R47.01 Aphasia; D68.59 Other primary thrombophilia; R29.702 NIHSS score 2; G89.29 Other chronic pain; I10 Essential (primary) hypertension; I48.91 Unspecified atrial fibrillation; Z79.01 Long term (current) use of anticoagulants; J45.909 Unspecified asthma, uncomplicated; E78.5 Hyperlipidemia, unspecified; K21.9 Gastro-esophageal reflux disease without esophagitis; E66.9 Obesity, unspecified; Z68.33 Body mass index [BMI] 33.0-33.9, adult; Z86.73 Personal history of transient ischemic attack (TIA), and cerebral infarction without residual deficits; Z82.3 Family history of stroke; Z98.84 Bariatric surgery status; Z80.3 Family history of malignant neoplasm of breast

== ENCOUNTER 2018-10-16 22:37 | Observation (INO) | payer MEDICARE, OTHER ==
--- NOTE | 2018-10-16 22:53 | ED PDOC ---
Arrival/HPI - General Chief Complaint: Shortness Of Breath Time Seen by Provider: 10/16/18 22:39 - History of Present Illness Narrative History of Present Illness (Text): 10/16/18 22:53 Keesha Lam is a 63 year old female, protein C deficiency, asthma, hyperlipidemia, hypertension, atrial fibrillation, DVT with IVC filter, CVA, and warfarin induced necrosis, who presents to the Emergency department complaining of shortness of breath. Patient states she sweeping at home when she began experiencing shortness of breath and mid-sternal chest pressure at approximately 20:00. Patient also reports she had a syncopal episode at 21:00 and notes she fell to the ground. Patient states she currently feels shaky. Patient denies any fever, chills, nausea, vomiting, diarrhea, urinary symptoms, back pain, neck pain, headache, dizziness, or any other complaints. Symptom Onset: Gradual Symptom Course: Unchanged Activities at Onset: Light Context: Home Past Medical History - Provider Review Nursing Documentation Reviewed: Yes - Infectious Disease Hx of Infectious Diseases: None - Tetanus Immunization Tetanus Immunization: Unknown - Cardiac Hx Cardiac Disorders: Yes (afib) Hx Hypertension: Yes - Pulmonary Hx Respiratory Disorders: Yes Hx Asthma: Yes Hx Pneumonia: Yes - Neurological Hx Neurological Disorder: Yes HX Cerebrovascular Accident: Yes (x2) Hx Transient Ischemic Attacks (TIA): Yes - HEENT Hx HEENT Disorder: Yes Hx Blind: Yes Other/Comment: Tonsillectomy - Renal Hx Renal Failure: Yes - Endocrine/Metabolic Hx Endocrine Disorders: No - Hematological/Oncological Hx Blood Disorders: Yes - Integumentary Hx Dermatological Disorder: No - Musculoskeletal/Rheumatological Hx Musculoskeletal Disorders: Yes Hx Arthritis: Yes Hx Falls: Yes - Gastrointestinal Hx Gastrointestinal Disorders: Yes Hx Gall Bladder Disease: Yes Hx Gastroesophageal Reflux: Yes Other/Comment: Gastric Bypass Surgery. Appetite Changes. Weight Loss. - Genitourinary/Gynecological Hx Genitourinary Disorders: Yes Hx Urinary Tract Infection: Yes - Psychiatric Hx Psychophysiologic Disorder: No Hx Anxiety: No Hx Bipolar Disorder: No Hx Depression: No Hx Emotional Abuse: No Hx Hallucinations: No Hx Panic Disorder: No Hx Post Traumatic Stress Disorder: No Hx Psychosis: No Hx Physical Abuse: No Hx Schizophrenia: No Hx Sexual Abuse: No Hx Substance Use: No - Past Surgical History Past Surgical History: Non-Contributing - Surgical History Hx Amputation: Yes (BL 4th digits) Hx Gastric Bypass Surgery: Yes Hx Hysterectomy: Yes - Anesthesia Hx Anesthesia: Yes Hx Anesthesia Reactions: No Hx Malignant Hyperthermia: No - Suicidal Assessment Feels Threatened In Home Enviroment: No Family/Social History - Physician Review Nursing Documentation Reviewed: Yes Family/Social History: Unknown Family HX Smoking Status: Never Smoked Hx Alcohol Use: No Hx Substance Use: No Hx Substance Use Treatment: No Allergies/Home Meds Allergies/Adverse Reactions: Allergies Penicillins Allergy (Verified 10/16/18 22:48) ANGIOEDEMA/SHORTNESS OF BREATH ANGIOEDEMA SHORTNESS OF BREATH levofloxacin Adverse Reaction (Verified 10/16/18 22:48) VOMITING Home Medications: Home Meds Medication Instructions Recorded Confirmed Apixaban [Eliquis] 5 mg PO BID 03/26/17 10/17/18 Pantoprazole Sodium [Protonix] 20 mg PO DAILY 10/22/17 10/17/18 Potassium Chloride [K-Dur 20 mEq 20 meq PO BID 10/22/17 10/17/18 ER Tab] Furosemide [Lasix] 20 mg PO DAILY 05/13/18 10/17/18 Review of Systems - Physician Review All systems were reviewed & negative as marked: Yes - Review of Systems Constitutional: Normal. absent: Fevers Eyes: Normal ENT: Normal Respiratory: SOB Cardiovascular: Chest Pain, Syncope Gastrointestinal: Normal. absent: Abdominal Pain, Diarrhea, Nausea, Vomiting Genitourinary Female: Normal. absent: Dysuria, Frequency, Hematuria, Urine Output Changes Musculoskeletal: Normal. absent: Back Pain, Neck Pain Skin: Normal. absent: Rash Neurological: Normal. absent: Headache, Dizziness Endocrine: Normal Hemo/Lymphatic: Normal Psychiatric: Normal Physical Exam Vital Signs Reviewed: Yes Vital Signs Temp Pulse Resp BP Pulse Ox 10/16/18 22:45 97.9 F 97 H 18 133/52 L 100 Temperature: Afebrile Blood Pressure: Normal Pulse: Regular Respiratory Rate: Normal Appearance: Positive for: Well-Appearing, Non-Toxic, Comfortable Pain Distress: None Mental Status: Positive for: Alert and Oriented X 3 - Systems Exam Head: Present: Atraumatic, Normocephalic Pupils: Present: PERRL Extroacular Muscles: Present: EOMI Conjunctiva: Present: Normal Mouth: Present: Moist Mucous Membranes Neck: Present: Normal Range of Motion Respiratory/Chest: Present: Clear to Auscultation, Good Air Exchange. No: Respiratory Distress, Accessory Muscle Use Cardiovascular: Present: Regular Rate and Rhythm, Normal S1, S2. No: Murmurs Abdomen: No: Tenderness, Distention, Peritoneal Signs Back: Present: Normal Inspection Upper Extremity: Present: Normal Inspection. No: Cyanosis, Edema Lower Extremity: Present: Normal Inspection. No: Edema Neurological: Present: GCS=15, CN II-XII Intact, Speech Normal Skin: Present: Warm, Dry, Normal Color. No: Rashes Psychiatric: Present: Alert, Oriented x 3, Normal Insight, Normal Concentration Medical Decision Making ED Course and Treatment: 10/16/18 22:53 Impression: 63 year old female complaining of shortness of breath, chest pressure, and syncope. Plan: -- CTA Chest -- CT Head w/o contrast -- EKG -- Chest X-ray -- Labs, cardiac enzymes -- Reassess and disposition Prior Visits: Notes and results from previous visits were reviewed. Progress Notes: Reviewed EKG, NSR at [address] bpm[address] Non-specific ST/T wave changes. 10/16/18 23:56 Chest X-ray reviewed, shows no acute processes. 10/17/18 06:04 CT SCAN OF THE BRAIN WITHOUT IV CONTRAST CLINICAL INDICATION: Syncope. COMPARISON: 05/13/2018. TECHNIQUE: Axial and reformatted sagittal and coronal images of the brain obtained without IV contrast administration. Prominent chronic benign falcine meningeal calcifications. Normal size of the ventricles and extra-axial spaces for the patient's age. Normal white matter tracts of the supratentorial brain. Normal basal ganglia and thalami. Normal brainstem. Normal cerebellum. There is no demonstrated extra-axial, intraparenchymal, or intraventricular hemorrhage. There are no findings of an acute ischemic infarction. Normal calvarium. There is no demonstrated fracture. Normal soft tissue structures. Empty sella benign chronic incidental finding. Normal visualized paranasal sinuses. IMPRESSION: No CT evidence of an acute pathology. Unchanged exa 10/17/18 06:30 A OF THE CHEST WITH IV CONTRAST CLINICAL HISTORY: Chest pain. Shortness of breath. TECHNIQUE: Axial and reformatted sagittal and coronal images of the chest obtained after bolus IV contrast administration. FINDINGS: Small sliding hiatal hernia. Surgical changes of the stomach. Bilateral basilar atelectatic pulmonary changes. Mild cardiomegaly. Normal enhancement of the main pulmonary artery and right and left pulmonary arteries. Normal enhancement of the bilateral peripheral pulmonary arteries. There is no demonstrated pulmonary embolism. Normal thoracic aorta and visualized great vessels. There is no demonstrated aortic dissection. Normal pericardium. Normal mediastinum. Normal hilar regions. Normal visualized trachea and bronchi. Normal pleura. Normal chest wall structures. Mild spondylosis. Normal visualized upper abdomen. IMPRESSION: No demonstrated pulmonary embolism or arterial dissection. Small sliding hiatal hernia. Surgical changes of the stomach. Bilateral basilar atelectatic pulmonary changes. Mild cardiomegaly. Case had been discussed with who had accepted to her service. - RAD Interpretation Air Traffic Control Specialist: ED Physician - EKG Interpretation Interpreted by ED Physician: Yes Type: 12 lead EKG - Scribe Statement The provider has reviewed the documentation as recorded by the Leonaibchris Griffiths Provider Scribe Attestation: All medical record entries made by the Scribe were at my direction and personally dictated by me. I have reviewed the chart and agree that the record accurately reflects my personal performance of the history, physical exam, medical decision making, and the department course for this patient. I have also personally directed, reviewed, and agree with the discharge instructions and disposition. Disposition/Present on Arrival - Present on Arrival Any Indicators Present on Arrival: No History of DVT/PE: No History of Uncontrolled Diabetes: No Urinary Catheter: No History of Decub. Ulcer: No History Surgical Site Infection Following: None - Disposition Have Diagnosis and Disposition been Completed?: Yes Diagnosis: Chest pain, Syncope Disposition: HOSPITALIZED Disposition Time: 06:20 Patient Problems: Current Active Problems Problem Status Onset Chest pain Acute Syncope Acute Condition: STABLE
[2018-10-17] MEDS ORDERED: Iohexol 350 MG/100 ML VIAL ONE (01:16)
--- NOTE | 2018-10-17 03:12 | PCM.PROC ---
Procedures Attestation:: I certify that I have explained the specified Operation(s) or Procedure(s), risks, benefits and reasonable alternatives to the Patient and/or other person responsible. The opportunity was given to ask questions and all questions answered - Central Line Placement Right Internal Jugular Triple Lumen Catheter Aseptic technique was employed throughout the procedure: Hand Hygiene done prior to procedure, Full sterile barriers (mask, hair cover, sterile gown, sterile gloves), Full body sterile drape, Chloraprep Antiseptic: 30 second prep for IJ or SC sites Pt. Placed on Pulse Ox Monitor: Yes Central Line Prep: Chlorhexidine-Alcohol Combination Local Anesthesia Used: Lidocaine 2% Amount of Anesthesia Used (mls): 5 Ultrasound Used for Placement: Yes Central Line Lumen Inserted: triple Central Line Length: 16 cm Post Procedure: Sutured in Place, Good Blood Return, All Ports Aspirated, Flushed, Capped, Sterile Dressing Applied Secured by: Suture Post procedure dressing: Clear vapor permeable Post Procedure X-Ray: Yes Patient Tolerated Procedure: Well, No Complications Immediate Complications: None Additional Comments: Patient received TLC for poor venous access. Patient tolerated procedure well. No immediate complications after procedure. CXR ordered.
[2018-10-17 03:36] LABS: HEMOGLOBIN 10.7 g/dL (12.0-16.0); MEAN CELL VOLUME 92.5 fl (80.0-105.0); MEAN CORPUSCULAR HEMOGLOBIN 29.9 pg (25.0-35.0); MEAN CORPUSCULAR HGB CONC 32.3 g/dl (31.0-37.0); MEAN PLATELET VOLUME 9.6 fl (7.0-11.0); RBC 3.58 10^6/uL (3.5-6.1); RED CELL DISTRIBUTION WIDTH 13.8 % (11.5-14.5); WHITE BLOOD COUNT 5.6 10^3/uL (4.5-11.0)
[2018-10-17 03:41] LABS: INR 1.07; PARTIAL THROMBOPLASTIN TIME 32.8 Seconds (26.9-38.3); PROTHROMBIN TIME 11.9 SECONDS (9.4-12.5)
[2018-10-17 03:45] LABS: ALB/GLOB RATIO 1.2 (1.1-1.8); ALBUMIN 3.7 g/dL (3.0-4.8); ALT/SGPT 98 U/L (7-56); AST/SGOT 40 U/L (14-36); BLOOD UREA NITROGEN 13 mg/dL (7-21); CALCIUM 8.8 mg/dL (8.4-10.5); GFR NON-AFRICAN AMERICAN > 60
[2018-10-17 03:56] LABS: TROPONIN I < 0.01 ng/mL
[2018-10-17] MEDS ORDERED: oxyCODONE 30 mg Immediate Release Tab PO ONE (04:40)
--- NOTE | 2018-10-17 08:37 | CT ---
Date of service: 10/17/2018 PROCEDURE: CT HEAD WITHOUT CONTRAST. HISTORY: syncope COMPARISON: 05/13/2018 TECHNIQUE: Axial computed tomography images were obtained through the head/brain without intravenous contrast. Radiation dose: Total exam DLP = 919.5 mGy-cm. This CT exam was performed using one or more of the following dose reduction techniques: Automated exposure control, adjustment of the mA and/or kV according to patient size, and/or use of iterative reconstruction technique. FINDINGS: HEMORRHAGE: No intracranial hemorrhage. BRAIN: No mass effect or edema. No atrophy or chronic microvascular ischemic changes. VENTRICLES: Unremarkable. No hydrocephalus. CALVARIUM: Unremarkable. PARANASAL SINUSES: Unremarkable as visualized. No significant inflammatory changes. MASTOID AIR CELLS: Unremarkable as visualized. No inflammatory changes. OTHER FINDINGS: The report concurs with the preliminary [facility] report IMPRESSION: No acute intracranial findings
--- NOTE | 2018-10-17 08:40 | CT ---
Date of service: 10/17/2018 PROCEDURE: CT Chest with contrast (Pulmonary Angiogram) HISTORY: sob COMPARISON: None available. TECHNIQUE: Axial computed tomography images were obtained of the chest in the pulmonary arterial phase of enhancement. Coronal and sagittal reformatted images were created and reviewed. Intravenous contrast dose: 100 cc of Omni 350 Radiation dose: Total exam DLP = 460.44 mGy-cm. This CT exam was performed using one or more of the following dose reduction techniques: Automated exposure control, adjustment of the mA and/or kV according to patient size, and/or use of iterative reconstruction technique. FINDINGS: PULMONARY ARTERIES: Unremarkable. No pulmonary embolism. AORTA: No acute findings. No thoracic aortic aneurysm. Aortic calcification. LUNGS: Unremarkable. No nodule, mass or pulmonary consolidation. PLEURAL SPACES: Unremarkable. No effusion or pneumothorax. HEART: Unremarkable. No cardiomegaly. No significant pericardial effusion. LYMPH NODES: No lymphadenopathy. BONES, CHEST WALL: Unremarkable. No fracture or destructive lesion OTHER FINDINGS: The report concurs with the preliminary [facility] report IMPRESSION: Unremarkable CT pulmonary angiogram. No pulmonary embolus.
--- NOTE | 2018-10-17 10:07 | RAD ---
Date of service: 10/16/2018 HISTORY: chest pain/sob COMPARISON: 05/13/2018 TECHNIQUE: 1 view obtained. FINDINGS: LUNGS: No active pulmonary disease. PLEURA: No significant pleural effusion identified, no pneumothorax apparent. CARDIOVASCULAR: No aortic atherosclerotic calcification present. Normal cardiac size. No pulmonary vascular congestion. OSSEOUS STRUCTURES: No significant abnormalities. VISUALIZED UPPER ABDOMEN: Normal. OTHER FINDINGS: None. IMPRESSION: No active disease.
--- NOTE | 2018-10-17 10:12 | RAD ---
Date of service: 10/17/2018 HISTORY: s/p central line placement COMPARISON: No prior. TECHNIQUE: 1 view obtained. FINDINGS: LUNGS: No active pulmonary disease. PLEURA: No significant pleural effusion identified, no pneumothorax apparent. CARDIOVASCULAR: No aortic atherosclerotic calcification present. Normal cardiac size. No pulmonary vascular congestion. OSSEOUS STRUCTURES: No significant abnormalities. VISUALIZED UPPER ABDOMEN: Normal. OTHER FINDINGS: None. IMPRESSION: Right IJ line in the upper right atrium. No evidence of pneumothorax
[2018-10-17] MEDS ORDERED: Pantoprazole 20 mg EC Tab PO SCH (12:15)
--- NOTE | 2018-10-17 13:22 | CARD ---
APPROVED REPORT Date of service: 10/16/2018 EKG Measurement Heart [id number] [id number] <Conclusion> Normal sinus rhythm Normal Electrocardiogram
[2018-10-17] MEDS: Pantoprazole 20 mg EC Tab PO SCH (13:25)
[2018-10-17] MEDS: oxyCODONE 30 mg Immediate Release Tab PO PRN ×2 (13:41→21:48)
[2018-10-17 16:03] VITALS: BMI 31.1
[2018-10-17] MEDS: Potassium Chloride 20 mEq ER Tab PO SCH (18:30)
--- NOTE | 2018-10-17 21:06 | HP ---
DATE OF EXAM: 10/17/2018 HISTORY OF PRESENT ILLNESS: The patient is a 63-year-old seen yesterday. She was sitting and doing nothing, developed chest some discomfort and shortness of breath especially on walking. She got concerns, so she came to the ER for further checkup. She denies any fever or chills. No history of cough or congestion. The patient recently has been under the care of Dr. Moe. PAST MEDICAL HISTORY: 1. History of chronic AFib, currently on Eliquis. She used to be on Coumadin, but she developed reaction and developed skin necrosis in her breast area and in her bilateral hands fourth toe on fourth digit on prior amputation. 2. History of chronic back pain. 3. History of coagulopathy. 4. History of protein C deficiency. 5. Hyperlipidemia. 6. History of DVT with IVC filter. 7. History of multiple CVAs in the past. PAST SURGICAL HISTORY: 1. Bilateral partial mastectomy. 2. Tonsillectomy. 3. Bilateral fourth digit amputation. 4. Gastric bypass. ALLERGIES: SHE IS ALLERGIC TO PENICILLIN AND LEVAQUIN. FAMILY HISTORY: Significant for her mom having breast cancer; dad also has breast cancer. SOCIAL HISTORY: She lives alone. Denies smoking, drinking or alcohol use. MEDICATIONS AT HOME: She is on potassium 10 mEq twice a day, Protonix 20 daily, metoprolol 25 twice a day, Eliquis 5 mg twice a day, Ambien as needed, Neurontin 600 three times a day, Lasix 20 mg daily, Flexeril 10 mg three times a day, aspirin 81 daily. PHYSICAL EXAMINATION GENERAL: She looks comfortable. VITAL SIGNS: She is afebrile, pulse 72, respirations 18, and blood pressure 107/53. LUNGS: Bilateral fair airflow. No rhonchi or crackle. HEART: S1 and S2 audible. ABDOMEN: Soft, nontender. No rebound. No guarding. NEUROLOGIC: The patient is awake and alert; able to communicate. On bilateral hands, she has bilateral fourth digit partial amputation. LABORATORY DATA: WBC 5.6, hemoglobin 10.7, hematocrit 33.1, platelets 251. PT 11.9, INR 1.07. Chemistry; sodium 142, potassium 3.9, chloride 109, CO2 of 25, BUN 13, creatinine 0.7, blood sugar of 85. AST 40, ALT 98, alk phos is 146. CT scan of the chest, CT angio negative for PE. X-ray of chest is unremarkable. ASSESSMENT: 1. Chest pain with associated shortness of breath, doubt underlying ischemia. However, the patient states she has stress test done sometime ago. 2. History of coagulopathy. 3. History of chronic atrial fibrillation. 4. Protein C deficiency. 5. History of deep vein thrombosis status post inferior vena cava filter placement. PLAN: We will resume the patient's usual medication. Followup cardiac enzymes. The patient developed normal LFTs. I will order for abdominal sonogram. Followup her echocardiogram. Cardiology consult by Dr. Larkin has been requested. Followup this patient in a.m. Magdiel Marcum MD
--- NOTE | 2018-10-17 22:26 | CON ---
DATE: 10/17/2018 HISTORY OF PRESENT ILLNESS: The patient is a 63-year-old woman who presents with chest pressure as well as a questionable syncopal episode. PAST MEDICAL HISTORY: Includes history of protein C deficiency and she has had DVTs filter placed as well as CVA. She is she is unable to take warfarin and is on Eliquis. She also suffers from hyperlipidemia and hypercholesterolemia. The chest pain is better. The syncopal episode is nondescript The patient had a stress test done 7 years ago at [facility], it was said to be normal. SOCIAL HISTORY: The patient does not smoke. REVIEW OF SYSTEMS: On a 14-point review of systems, currently, the patient is free of any cardiac symptomatology. PHYSICAL EXAMINATION: GENERAL: On physical exam, the patient is in no acute distress. VITAL SIGNS: Heart rate is in the in the 60s, normal sinus rhythm. The blood pressure 128/79. NECK: Negative JVD. LUNGS: Without rales. HEART: S1, S2. EXTREMITIES: Without edema. EKG shows normal sinus rhythm with no acute changes. LABORATORY DATA: Troponins are negative x2. Hemoglobin is 10.4. The LFTs are borderline elevated. IMPRESSION 1. Atypical chest pain, which is transient 2. Syncope. 3. Protein C deficiency. 4. Paroxysmal atrial fibrillation, which the patient is in normal sinus rhythm now. 5. History of hypertension. 6. History of hypercholesterolemia. PLAN: Given these findings, we will obtain an echocardiogram to evaluate LV function. So far, there is no evidence for acute coronary syndrome. If her tests come back okay after monitoring on telemetry for 24 hours, the patient should get an outpatient stress test, which I have discussed with the patient in detail. Stewart Larkin MD
[2018-10-18] MEDS: oxyCODONE 30 mg Immediate Release Tab PO PRN ×2 (06:41→15:38)
--- NOTE | 2018-10-18 08:24 | CP.PCM.CON ---
<Jaime Maddox - Last Filed: 10/18/18 16:24> History of Present Illness - History of Present Illness History of Present Illness: Jaime Maddox Internal Medicine Resident- Consult Note on Behalf of Dr. Mack Subjective: CC: Chest Pain + SOB HPI: Pt is a 62 year old female with a PMHx of Protein C deficiency, asthma, dyslipidemia, hypertension, atrial fibrillation, DVT with IVC filter and on Eliquis, previous CVA, and warfarin induced necrosis, who presented to the Emergency department for evaluation and treatment of chest pain and SOB. GI team was consulted for management/recommendations on elevated LFTs. Patient seen and examined at bedside. No acute events since admission. Offers no new complaints at this time. Patient denies abdominal pain, nausea, vomiting, diarrhea, constipation, bright red blood per rectum, black stools, change in stool caliber. Furthermore, denies fever, chills, chest pain, SOB, and urinary symptoms. 12 point ROS negative except as indicated above Past Medical History: Protein C deficiency, asthma, dyslipidemia, hypertension, atrial fibrillation, DVT with IVC filter and on Eliquis, previous CVA, warfarin induced necrosis Past Surgical History: bilateral partial mastectomy, tonsilectomy, gastric bypass, IVC filter, Ring finger amputation BL Allergies: Penicillin, levofloxacin Social History: Denies tobacco, etoh, and illicit drug use Family History: Mother breast CA, CVA Medications: As per MAR PMD: Dr Moe Physical Examination: - Constitutional Appears: No acute distress - Head Exam Head Exam: ATRAUMATIC, NORMAL INSPECTION, NORMOCEPHALIC - Eye Exam Eye Exam: EOMI, Normal appearance - ENT Exam ENT Exam: Mucous Membranes Dry - Neck Exam Neck exam: Positive for: Normal Inspection - Respiratory Exam Respiratory Exam: Clear to Auscultation Bilateral, NORMAL BREATHING PATTERN - Cardiovascular Exam Cardiovascular Exam: +S1, +S2. absent: Gallop, Rubs - GI/Abdominal Exam GI & Abdominal Exam: soft, NTTP, no guarding, no rebound tenderness - Extremities Exam Extremities exam: no clubbing, no cyanosis - Neurological Exam Neurological exam: Alert, CN II-XII Intact, Oriented x3 - Skin Skin Exam: Dry, Intact, Normal Color, Warm Studies Reviewed 03/16/2016 Colonoscopy Diverticulosis in the entire colon, internal hemorrhoids, repeat colonscopy in 5 years for surveillance 08/13/2017 EGD monilal esophagitis, gastric bypass, GJ anastamosis, gastroparesis 05/07/2018 Abdominal ultrasound- gallstone, no cholecystitis, dilated common bile duct 10mm 10/16/[address]-No acute intracranial findings 10/16/[address] Angio-Unremarkable CT pulmonary angiogram. No pulmonary embolus. Assessment and Plan: Pt is a 62 year old female with a PMHx of Protein C deficiency, asthma, dyslipidemia, hypertension, atrial fibrillation, DVT with IVC filter and on Eliquis, previous CVA, and warfarin induced necrosis, who presented to the Emergency department for evaluation and treatment of chest pain and SOB. Elevated LFTs- ddx autoimmune vs RAYGOZA Hx of CBD Dilation Atypical Chest Pain Paroxysmal Atrial Fibrillation on eliquis Anemia - Abdominal ultrasound ordered and pending - Hepatitis panel, hepatitis surface antibody, hepatitis A total ordered and pending - TIBC/folate ordered and pending - Anti-mitochondrial antibody/anti-smooth muscle antibody ordered and pending - IgA, IgG, IgM ordered and pending - MRCP with and without contrast ordered and pending- rule out ampulla lesion Patient seen, case discussed with, and plan approved by attending physician, Dr. Mack. Past Patient History - Infectious Disease Hx of Infectious Diseases: None - Tetanus Immunizations Tetanus Immunization: Unknown - Past Medical History & Family History Past Medical History?: Yes - Past Social History Smoking Status: Never Smoked - CARDIAC Hx Cardiac Disorders: Yes (afib) Hx Hypertension: Yes - PULMONARY Hx Respiratory Disorders: Yes Hx Asthma: Yes Hx Pneumonia: Yes - NEUROLOGICAL Hx Neurological Disorder: Yes HX Cerebrovascular Accident: Yes (x2) Hx Transient Ischemic Attacks (TIA): Yes - HEENT Hx HEENT Problems: Yes Hx Blind: Yes Other/Comment: Tonsillectomy - RENAL Hx Renal Failure: Yes - ENDOCRINE/METABOLIC Hx Endocrine Disorders: No - HEMATOLOGICAL/ONCOLOGICAL Hx Blood Disorders: Yes - INTEGUMENTARY Hx Dermatological Problems: No - MUSCULOSKELETAL/RHEUMATOLOGICAL Hx Falls: Yes - GASTROINTESTINAL Hx Gastrointestinal Disorders: Yes Hx Gall Bladder Disease: Yes Hx Gastroesophageal Reflux: Yes Other/Comment: Gastric Bypass Surgery. Appetite Changes. Weight Loss. - GENITOURINARY/GYNECOLOGICAL Hx Genitourinary Disorders: Yes Hx Urinary Tract Infection: Yes - PSYCHIATRIC Hx Substance Use: No - SURGICAL HISTORY Hx Amputation: Yes (BL 4th digits) Hx Gastric Bypass Surgery: Yes Hx Hysterectomy: Yes - ANESTHESIA Hx Anesthesia: Yes Hx Anesthesia Reactions: No Hx Malignant Hyperthermia: No Meds Allergies/Adverse Reactions: Allergies Allergy/AdvReac Type Severity Reaction Status Date / Time Penicillins Allergy ANGIOEDEMA/SHORTNESS Verified 10/16/18 22:48 OF BREATH levofloxacin AdvReac VOMITING Verified 10/16/18 22:48 - Medications Medications: Current Medications Apixaban (Eliquis) 5 mg PO BID [facility]; Protocol Last Admin: 10/17/18 18:30 Dose: 5 mg Aspirin (Ecotrin) 81 mg PO DAILY [facility] Last Admin: 10/17/18 13:26 Dose: 81 mg Furosemide (Lasix) 20 mg PO DAILY [facility] Last Admin: 10/17/18 13:25 Dose: 20 mg Metoprolol Tartrate (Lopressor) 25 mg PO BID [facility] Last Admin: 10/17/18 18:30 Dose: 25 mg Oxycodone HCl (Oxycodone Immediate Release Tab) 30 mg PO Q8 PRN PRN Reason: Pain, moderate (4-7) Last Admin: 10/18/18 06:41 Dose: 30 mg Pantoprazole Sodium (Protonix Ec Tab) 40 mg PO DAILY [facility] Last Admin: 10/17/18 13:25 Dose: 40 mg Potassium Chloride (K-Dur 20 Meq Er Tab) 20 meq PO BID [facility] Last Admin: 10/17/18 18:30 Dose: 20 meq Zolpidem Tartrate (Ambien) 10 mg PO HS PRN; Protocol PRN Reason: Insomnia Last Admin: 10/17/18 23:07 Dose: 10 mg Results - Vital Signs Recent Vital Signs: Last Vital Signs Temp 98.1 F 10/18/18 06:00 Pulse 77 10/18/18 06:00 Resp 20 10/18/18 06:00 BP 108/72 10/18/18 06:00 Pulse Ox 98 10/18/18 06:00 - Labs Result Diagrams: 10/17/18 03:20 10/17/18 03:20 Labs: Laboratory Results - last 24 hr 10/17/18 10/17/18 10:30 17:50 Troponin I < 0.01 < 0.01 <Martina,Kovil V - Last Filed: 10/18/18 23:40> Meds - Medications Medications: Current Medications Apixaban (Eliquis) 5 mg PO BID [facility]; Protocol Last Admin: 10/18/18 17:34 Dose: 5 mg Aspirin (Ecotrin) 81 mg PO DAILY [facility] Last Admin: 10/18/18 10:09 Dose: 81 mg Furosemide (Lasix) 20 mg PO DAILY [facility] Last Admin: 10/18/18 10:10 Dose: 20 mg Metoprolol Tartrate (Lopressor) 25 mg PO BID [facility] Last Admin: 10/18/18 17:34 Dose: 25 mg Oxycodone HCl (Oxycodone Immediate Release Tab) 30 mg PO Q8 PRN PRN Reason: Pain, moderate (4-7) Last Admin: 10/18/18 15:38 Dose: 30 mg Pantoprazole Sodium (Protonix Ec Tab) 40 mg PO DAILY [facility] Last Admin: 10/18/18 10:09 Dose: 40 mg Potassium Chloride (K-Dur 20 Meq Er Tab) 20 meq PO BID [facility] Last Admin: 10/18/18 17:34 Dose: 20 meq Zolpidem Tartrate (Ambien) 10 mg PO HS PRN; Protocol PRN Reason: Insomnia Last Admin: 10/18/18 22:37 Dose: 10 mg Results - Vital Signs Recent Vital Signs: Last Vital Signs Temp 98.1 F 10/18/18 22:01 Pulse 67 10/18/18 22:01 Resp 18 10/18/18 22:01 BP 117/86 10/18/18 22:01 Pulse Ox 100 10/18/18 22:01 - Labs Result Diagrams: 10/17/18 03:20 10/17/18 03:20 Labs: Laboratory Results - last 24 hr 10/18/18 10/18/18 10/18/18 11:30 11:30 11:30 Iron 95 TIBC 236 L % Saturation 40 Folate IgG IgA IgM Hepatitis A IgM Ab Negative Hep Bs Antigen Negative Hep Bs Antibody Negative Hep B Core IgM Ab Negative Hepatitis C Antibody Negative 10/18/18 10/18/18 11:30 11:30 Iron TIBC % Saturation Folate 15.8 IgG 1351.8 IgA 320.9 IgM 51.1 Hepatitis A IgM Ab Hep Bs Antigen Hep Bs Antibody Hep B Core IgM Ab Hepatitis C Antibody Attending/Attestation - Attestation I have personally seen and examined this patient.: Yes I have fully participated in the care of the patient.: Yes I have reviewed all pertinent clinical information: Yes Notes (Text): This patient was seen and evaluated along with the resident earlier today. This is an addendum to the GI consultation report dictated by the resident. 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 Patient was found to have elevated LFTs GI consult was requested to evaluate. Patient has history of gallstones with a dilated duct MRCP done last time duct measured about 1.1 cm but no CBD stone noticed. Patient has fluctuating liver enzymes recently found to be higher level than her baseline numbers noted. But it is serology done in the past negative. Previous EGD and colonoscopy reports were reviewed. History of chronic anemia. Concern is patient has multiple gallstones dilated CBD and also prominent pancreaticduct 6-7mm Recommendations 1. MRI of the abdomen with MRCP to further evaluate the common bile duct and also pancreatic duct and pancreas EUS is difficult to evaluate the ampullary lesion in view of the gastric bypass. EUS scope could not be advanced to the duodenum in view of the bypass 2. Chronic anemia previous GI work-up reviewed would recommend repeat iron studies and reticulocyte count 3. Paroxysmal A. fib 4. Protein C deficiency hypercoagulable state history of CVA before patient need to be on long-term anticoagulation patient is on Eliquis Thank you Dr. Marcum for allowing us to participate in the care of the patient will continue to closely follow-up with her care and suggest further recomme ndations based on the clinical course 10/18/18 23:35
[2018-10-18] MEDS: Potassium Chloride 20 mEq ER Tab PO SCH ×2 (10:09→17:34)
[2018-10-18] MEDS: Pantoprazole 20 mg EC Tab PO SCH (10:09)
--- NOTE | 2018-10-18 11:12 | CON ---
DATE: 10/17/2018 HISTORY OF PRESENT ILLNESS: This is a 63-year-old female with past medical history of asthma, hypertension, atrial fibrillation, IVC filter, CVA, warfarin, and protein C deficiency, came to the emergency room with shortness of breath and also experiencing report that she fainted and fell to the ground and feels shaky and came to the hospital. PAST MEDICAL HISTORY: As above. SOCIAL HISTORY: Does not smoke. Does not drink. HOME MEDICATIONS: Eliquis, , and furosemide. REVIEW OF SYSTEMS: A 10-point review of systems was negative. PHYSICAL EXAMINATION: VITAL SIGNS: Blood pressure 103/52. HEENT: Normocephalic and atraumatic. NECK: Supple. NEUROLOGIC: Awake, alert, and oriented x3. No aphasia. Cranial nerves II through XII were tested. Pupils reactive. EOMs intact. Visual giraldo full. No facial asymmetry. Tongue is midline. Motor examination; moves all the extremities equally. Tone normal. Deep tendon reflexes 1+. Both plantars are downgoing. Sensory appears intact. Cerebellar gait deferred. IMPRESSION AND PLAN: A 63-year-old came with shortness of breath, syncopal episode, and CAT scan of the head was done, which was reported to be negative, no bleed, no infarct. Had syncope, less likely seizure. Continue present management and followup. Fabrizio Nuñez MD
[2018-10-18 11:58] LABS: IRON 95 ug/dL (45-180)
[2018-10-18 12:17] LABS: % IRON SATURATION 40 % (20-55); TOTAL IRON BINDING CAPACITY 236 ug/dL (265-497)
--- NOTE | 2018-10-18 13:39 | PN ---
DATE: 10/18/2018 SUBJECTIVE: The patient is asymptomatic. She is feeling well. PHYSICAL EXAMINATION: VITAL SIGNS: Blood pressure 114/70, heart rate is in the 90s. NECK: Negative JVD. LUNGS: Without rales. HEART: S1, S2. EXTREMITIES: Without edema. LABORATORY: Troponins are negative x3. The LFTs remain elevated. Hemoglobin is 10.7. IMPRESSION: 1. Resolution of abdominal pain. 2. No evidence for left ventricular outflow obstruction. 3. History of paroxysmal atrial fibrillation. The patient remains in normal sinus rhythm. 4. Hypertension. 5. Hypercholesterolemia. Given these findings, we will discontinue telemetry today. We will arrange for an outpatient echocardiogram and stress test. She is for GI workup to explain her elevated LFTs. From a cardiac perspective, her cardiac work can be done as an outpatient. Stewart Larkin MD
--- NOTE | 2018-10-18 15:44 | US ---
Date of service: 10/18/2018 HISTORY: elevated LFTs COMPARISON: None. TECHNIQUE: Sonographic evaluation of the abdomen. FINDINGS: LIVER: Measures 14.6 cm. Normal echogenicity of the liver parenchyma. No mass. No intrahepatic bile duct dilatation. GALLBLADDER: Gallstones and sludge. COMMON BILE DUCT: Measures 10 mm. Dilated common duct PANCREAS: No acute findings RIGHT KIDNEY: Measures 11.3 x 4.9 x 4.9cm. Normal echogenicity. No calculus, mass, or hydronephrosis. Renal cysts LEFT KIDNEY: Measures 11.7 x 5.9 x 5.2cm. Normal echogenicity. No calculus, mass, or hydronephrosis. Renal cyst SPLEEN: Normal in size and contour. No mass. 10.2 x 4.3 x 4.1 cm AORTA: No aneurysmal dilatation. IVC: Unremarkable. OTHER FINDINGS: None. IMPRESSION: Dilated common duct. Gallstones and gallbladder sludge
[2018-10-18 17:43] LABS: IMMUNOGLOBULIN A 320.9 mg/dL (70.0-400.0); IMMUNOGLOBULIN G 1351.8 mg/dL (700.0-1600.0); IMMUNOGLOBULIN M 51.1 mg/dL (40.0-230.0)
[2018-10-18 18:03] LABS: HEPATITIS B SURFACE AG Negative (NEGATIVE)
[2018-10-18 18:09] LABS: HEPATITIS A IGM NEGATIVE (NEGATIVE); HEPATITIS B CORE AB NEGATIVE (NEGATIVE)
[2018-10-18 18:20] LABS: HEPATITIS C ANTIBODY NEGATIVE (NEGATIVE)
[2018-10-18 22:02] VITALS: RESP 18
[2018-10-19] MEDS: oxyCODONE 30 mg Immediate Release Tab PO PRN ×3 (00:35→17:37)
--- NOTE | 2018-10-19 02:54 | DS ---
HISTORY OF PRESENT ILLNESS: The patient is a 63-year-old, seen and examined, walking around, and no chest pain noted. The patient is scheduled to have stress test done by Dr. Stewart Larkin next week. PHYSICAL EXAMINATION: GENERAL: The patient is awake and alert, able to communicate. VITAL SIGNS: The patient is afebrile, pulse 64, respirations 20, and blood pressure 114/70. LUNGS: Bilateral fair airflow. No rhonchi or crackle. HEART: S1 and S2 audible. ABDOMEN: Soft and nontender. No rebound. No guarding. NEUROLOGIC: The patient is awake and alert, able to communicate. LABORATORY DATA: Yesterday, the patient's AST was 40, ALT 90, and alk phos is 146. Because of abnormal LFTs, the patient is supposed to have abdominal sonogram done. ASSESSMENT: 1. Chest pain seem to be noncardiac with associated shortness of breath. 2. History of protein C deficiency. 3. History of asthma. 4. Hypertension. 5. Hyperlipidemia. 6. History of coagulopathy. 7. History of deep vein thrombosis with inferior vena cava filter placement, currently on Eliquis. 8. History of cerebrovascular accident. 9. 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 PLAN: The patient is awaiting abdominal sonogram to be done. The patient has a history of cholelithiasis and we will continue on current medications. She is scheduled to have stress test done as an outpatient next week. Magdiel Marcum MD
[2018-10-19] MEDS: Potassium Chloride 20 mEq ER Tab PO SCH ×2 (09:17→17:36)
[2018-10-19] MEDS: Pantoprazole 20 mg EC Tab PO SCH (09:17)
[2018-10-19 09:22] LABS: ALBUMIN 3.2 g/dL (3.0-4.8); ALT/SGPT 56 U/L (7-56); AST/SGOT 29 U/L (14-36); BLOOD UREA NITROGEN 11 mg/dL (7-21); CALCIUM 8.8 mg/dL (8.4-10.5); GFR NON-AFRICAN AMERICAN > 60
[2018-10-19] MEDS ORDERED: Gadodiamide 287 MG/ML VIAL (20ML) IV ONE (10:27)
--- NOTE | 2018-10-19 11:39 | CP.PCM.PN ---
<Jaime Maddox - Last Filed: 10/19/18 14:01> Subjective - Date & Time of Evaluation Date of Evaluation: 10/19/18 Time of Evaluation: 10:00 - Subjective Subjective: Jaime Maddox Internal Medicine Resident- Progress Note on Behalf of Dr. Mack Subjective: Patient seen and examined at bedside. No acute events overnight. Admits to headache and nausea in AM. Nausea subsided without acute intervention. Patient denies abdominal pain, vomiting, diarrhea, constipation, bright red blood per rectum, black stools, change in stool caliber. Furthermore, denies fever, chills, chest pain, SOB, and urinary symptoms. 12 point ROS negative except as indicated above Physical Examination: - Constitutional Appears: No acute distress - Head Exam Head Exam: ATRAUMATIC, NORMAL INSPECTION, NORMOCEPHALIC - Eye Exam Eye Exam: EOMI, Normal appearance - ENT Exam ENT Exam: Mucous Membranes Dry - Neck Exam Neck exam: Positive for: Normal Inspection - Respiratory Exam Respiratory Exam: Clear to Auscultation Bilateral, NORMAL BREATHING PATTERN - Cardiovascular Exam Cardiovascular Exam: +S1, +S2. absent: Gallop, Rubs - GI/Abdominal Exam GI & Abdominal Exam: soft, NTTP, no guarding, no rebound tenderness - Extremities Exam Extremities exam: no clubbing, no cyanosis - Neurological Exam Neurological exam: Alert, CN II-XII Intact, Oriented x3 - Skin Skin Exam: Dry, Intact, Normal Color, Warm Studies Reviewed 03/16/2016 Colonoscopy Diverticulosis in the entire colon, internal hemorrhoids, repeat colonscopy in 5 years for surveillance 08/13/2017 EGD monilal esophagitis, gastric bypass, GJ anastamosis, gastroparesis 08/26/2018 MR Abdomen Without Intravenous Contrast: The common bile duct measures 1.1 cm in diameter. 05/07/2018 Abdominal ultrasound- gallstone, no cholecystitis, dilated common bile duct 10mm 10/16/[address]-No acute intracranial findings 10/16/[address] Angio-Unremarkable CT pulmonary angiogram. No pulmonary embolus. 10/18/2018 Abdominal ultrasound- Dilated common duct. Gallstones and gallbladder sludge Assessment and Plan: Pt is a 62 year old female with a PMHx of Protein C deficiency, asthma, dyslipidemia, hypertension, atrial fibrillation, DVT with IVC filter and on Eliquis, previous CVA, and warfarin induced necrosis, who presented to the Emergency department for evaluation and treatment of chest pain and SOB. Elevated LFTs- fluctuating likely secondary to CBD gallstone vs. ampullary lesion Hx of CBD Dilation Atypical Chest Pain Paroxysmal Atrial Fibrillation on eliquis Anemia - Anti-mitochondrial antibody/anti-smooth muscle antibody ordered and pending - Hepatitis panel, hepatitis surface antibody, hepatitis A total - reviewed, positive only for hepatitis A antibody total - IgA, IgG, IgM reviewed- within normal range - MRCP with and without contrast ordered and pending- official read is pending, follow up results Patient seen, case discussed with, and plan approved by attending physician, Dr. Mack. Objective - Vital Signs/Intake and Output Vital Signs (last 24 hours): Temp Pulse Resp BP Pulse Ox 98.2 F 68 18 106/70 100 10/19/18 06:00 10/19/18 09:18 10/19/18 06:00 10/19/18 09:18 10/19/18 06:00 Intake and Output: 10/19/18 10/19/18 06:59 18:59 Intake Total 660 Balance 660 - Medications Medications: Current Medications Apixaban (Eliquis) 5 mg PO BID [facility]; Protocol Last Admin: 10/19/18 09:17 Dose: 5 mg Aspirin (Ecotrin) 81 mg PO DAILY [facility] Last Admin: 10/19/18 09:17 Dose: 81 mg Furosemide (Lasix) 20 mg PO DAILY [facility] Last Admin: 10/19/18 09:18 Dose: 20 mg Metoprolol Tartrate (Lopressor) 25 mg PO BID [facility] Last Admin: 10/19/18 09:18 Dose: 25 mg Oxycodone HCl (Oxycodone Immediate Release Tab) 30 mg PO Q8 PRN PRN Reason: Pain, moderate (4-7) Last Admin: 10/19/18 08:47 Dose: 30 mg Pantoprazole Sodium (Protonix Ec Tab) 40 mg PO DAILY [facility] Last Admin: 10/19/18 09:17 Dose: 40 mg Potassium Chloride (K-Dur 20 Meq Er Tab) 20 meq PO BID [facility] Last Admin: 10/19/18 09:17 Dose: 20 meq Zolpidem Tartrate (Ambien) 10 mg PO HS PRN; Protocol PRN Reason: Insomnia Last Admin: 10/18/18 22:37 Dose: 10 mg - Labs Labs: 10/17/18 03:20 10/19/18 09:00 PT 11.9 SECONDS (9.4-12.5) 10/17/18 03:20 INR 1.07 10/17/18 03:20 APTT 32.8 Seconds (26.9-38.3) 10/17/18 03:20 <Martina,Kovil V - Last Filed: 10/19/18 19:40> Objective - Vital Signs/Intake and Output Vital Signs (last 24 hours): Temp Pulse Resp BP Pulse Ox 98.4 F 88 18 147/79 94 L 10/19/18 14:00 10/19/18 17:38 10/19/18 06:00 10/19/18 17:38 10/19/18 14:00 - Medications Medications: Current Medications Apixaban (Eliquis) 5 mg PO BID [facility]; Protocol Last Admin: 10/19/18 17:36 Dose: 5 mg Aspirin (Ecotrin) 81 mg PO DAILY [facility] Last Admin: 10/19/18 09:17 Dose: 81 mg Furosemide (Lasix) 20 mg PO DAILY [facility] Last Admin: 10/19/18 09:18 Dose: 20 mg Metoprolol Tartrate (Lopressor) 25 mg PO BID [facility] Last Admin: 10/19/18 17:38 Dose: 25 mg Oxycodone HCl (Oxycodone Immediate Release Tab) 30 mg PO Q8 PRN PRN Reason: Pain, moderate (4-7) Last Admin: 10/19/18 17:37 Dose: 30 mg Pantoprazole Sodium (Protonix Ec Tab) 40 mg PO DAILY [facility] Last Admin: 10/19/18 09:17 Dose: 40 mg Potassium Chloride (K-Dur 20 Meq Er Tab) 20 meq PO BID [facility] Last Admin: 10/19/18 17:36 Dose: 20 meq Ursodiol (Actigall) 300 mg PO BID [facility] Last Admin: 10/19/18 17:36 Dose: 300 mg Zolpidem Tartrate (Ambien) 10 mg PO HS PRN; Protocol PRN Reason: Insomnia Last Admin: 10/18/18 22:37 Dose: 10 mg - Labs Labs: 10/17/18 03:20 10/19/18 09:00 PT 11.9 SECONDS (9.4-12.5) 10/17/18 03:20 INR 1.07 10/17/18 03:20 APTT 32.8 Seconds (26.9-38.3) 10/17/18 03:20 Attending/Attestation - Attestation I have personally seen and examined this patient.: Yes I have fully participated in the care of the patient.: Yes I have reviewed all pertinent clinical information, including history, physical exam and plan: Yes Notes (Text): This patient was seen and evaluated along with the resident area. This is an addendum to the GI progress report dictated by the resident. Imaging studies MRCP was reviewed. Discussed with Dr. Marcum. We will start the patient on Actigall. Actuating LFTs with a dilated common bile duct. PD is also dilated. Atypical chest pain could be due to biliary colic. Status post gastric bypass. Multiple comorbidities including CVA hypercoagulable state on Eliquis Patient would benefit from hepatobiliary surgical evaluation. Discussed with the patient. 10/19/18 19:38
--- NOTE | 2018-10-19 14:24 | MRI ---
Date of service: 10/19/2018 PROCEDURE: MRI Abdomen with and without contrast plus MRCP HISTORY: Elevated liver function tests. History of CBD dilatation and pancreatic duct dilatation COMPARISON: None available. TECHNIQUE: Multisequence, multiplanar MR images of the abdomen with and without gadolinium contrast enhancement. 20 cc of Omniscan FINDINGS: LIVER: Unremarkable. GALLBLADDER: The gallbladder is unremarkable. The common duct measures 9 mm in diameter. The pancreatic duct measures 5 mm. These are unchanged SPLEEN: Unremarkable. PANCREAS: There is diffuse pancreatic atrophy and dilatation of the pancreatic duct. ADRENALS: Unremarkable. KIDNEYS: Right-sided renal cysts. AORTA: No aneurysm. ASCITES: None. PERITONEUM: Unremarkable. LYMPH NODES: Unremarkable. OTHER FINDINGS: None. IMPRESSION: The gallbladder is unremarkable. The common duct measures 9 mm in diameter. The pancreatic duct measures 5 mm. These are unchanged
[2018-10-19 15:56] VITALS: BP 147/79; PULSE 88; TEMP 98.4; O2SAT 94
--- NOTE | 2018-10-20 00:43 | DS ---
HISTORY OF PRESENT ILLNESS: The patient is a 63-year-old came in with chest pain and shortness of breath. She was seen by Dr. Stewart Larkin and scheduled for stress test next Thursday. PHYSICAL EXAMINATION: GENERAL: She is doing well. VITAL SIGNS: She is afebrile, pulse 60, respirations 18, and blood pressure 106/70. LUNGS: Bilateral fair airflow. No rhonchi or crackle. HEART: S1 and S2 audible. ABDOMEN: Soft and nontender. No rebound. No guarding. NEUROLOGIC: The patient is awake, alert, and able to communicate. LABORATORY DATA: Her AST 79, ALT 56, and alk phos is 114, it has normalized. Her hepatitis profile is negative. She had MRCP done, pending. ASSESSMENT: 1. Chest pain with shortness of breath, etiology unclear and history of coagulopathy, on anticoagulant. 2. Cholelithiasis. 3. History of Coumadin necrosis and developed ulcers of both breasts end up having partial mastectomy. 4. Chronic back pain. 5. Neuropathy. PLAN: If MRCP is negative, the patient will be discharged home today. She will follow up with surgeon of her own choice eventually she has told that she need cholecystectomy. She will resume her Eliquis upon discharge. Magdiel Marcum MD
== END 2018-10-19 22:35 | disposition home or self-care (01) ==
LOC: ED 22:37 → ERH 10-17 06:18 → 2RNO 10-17 08:53 → 5RNO 10-18 13:00
PROVIDERS: ADMIT Internal Medicine; ATTEND Internal Medicine
DX: R07.9 Chest pain, unspecified (principal); R06.02 Shortness of breath; K80.20 Calculus of gallbladder without cholecystitis without obstruction; G89.29 Other chronic pain; M54.9 Dorsalgia, unspecified; G62.9 Polyneuropathy, unspecified; D64.9 Anemia, unspecified; D68.59 Other primary thrombophilia; E78.00 Pure hypercholesterolemia, unspecified; E78.5 Hyperlipidemia, unspecified; H54.7 Unspecified visual loss; I10 Essential (primary) hypertension; I48.0 Paroxysmal atrial fibrillation; J45.909 Unspecified asthma, uncomplicated; K21.9 Gastro-esophageal reflux disease without esophagitis; K44.9 Diaphragmatic hernia without obstruction or gangrene; R55 Syncope and collapse; W19.XXXA Unspecified fall, initial encounter; Z79.01 Long term (current) use of anticoagulants; Z80.3 Family history of malignant neoplasm of breast; Z82.3 Family history of stroke; Z86.718 Personal history of other venous thrombosis and embolism; Z86.73 Personal history of transient ischemic attack (TIA), and cerebral infarction without residual deficits; Z87.01 Personal history of pneumonia (recurrent); Z87.440 Personal history of urinary (tract) infections; Z89.429 Acquired absence of other toe(s), unspecified side; Z90.710 Acquired absence of both cervix and uterus; Z98.84 Bariatric surgery status
CPT/HCPCS: 36415; 36573; 70450; 71045; 71275; 74183; 76700; 80053; 80074; 82550; 82746; 82784; 83540; 83550; 83615; 84484; 85027; 85610; 85730; 86255; 86706; 86708; 93005; 99285; A9579; G0378; Q9967